=== PATIENT | female | born 1955 | race Caucasian/White ===

== ENCOUNTER 2016-10-11 09:39 | Emergency (ER) | payer OTHER ==
[~2016-10-11] VITALS: Ht 160 cm; Wt 60.0 kg
[2016-10-11] MEDS ORDERED: RAW CALCIUM (10:02)
[2016-10-11] MEDS ORDERED: MULTCAP11 PO (10:02)
[2016-10-11] MEDS ORDERED: [UNRECOGNIZED DRUG - OTHER] PO (10:02)
[2016-10-11] MEDS ORDERED: METOPROLOL 5 MG/5 ML VIAL As Ordered ONE (10:18)
[2016-10-11 10:21] LABS: MEAN CORPUSCULAR HEMOGLOBIN 32.8 pg (27.0-33.0); MEAN CORPUSCULAR HGB CONC 35.9 g/dl (32.0-36.5); MEAN CORPUSCULAR VOLUME 91.4 fl (80.0-96.0); RED CELL DISTRIBUTION WIDTH 11.9 % (11.5-14.5); WHITE BLOOD COUNT 6.2 K/mm3 (4.0-10.0)
[2016-10-11] MEDS: METOPROLOL 5 MG/5 ML VIAL IV SCH ×3 (10:26→10:40)
[2016-10-11] MEDS ORDERED: ASPIRIN 81 MG CHEW TABLET PO ONE (10:30)
[2016-10-11 10:40] VITALS: BP 159/95
[2016-10-11 10:57] LABS: ALBUMIN 4.3 GM/DL (3.2-5.2); ALBUMIN/GLOBULIN RATIO 1.48 (1.00-1.93); ALKALINE PHOSPHATASE 83 U/L (45-117); ALT/SGPT 31 U/L (12-78); ANION GAP 11 MEQ/L (8-16); AST/SGOT 23 U/L (15-37); BILIRUBIN,DIRECT 0.2 MG/DL (0.0-0.2); BILIRUBIN,TOTAL 0.8 MG/DL (0.2-1.0); BLOOD UREA NITROGEN 16 MG/DL (7-18); CALCIUM LEVEL 9.5 MG/DL (8.8-10.2); CARBON DIOXIDE LEVEL 23 MEQ/L (21-32); CHLORIDE LEVEL 108 MEQ/L (98-107); CREATININE FOR GFR 1.04 MG/DL (0.55-1.02); GLOMERULAR FILTRATION RATE 57.2 (>45); GLUCOSE, FASTING 177 MG/DL (80-110); POTASSIUM SERUM 3.5 MEQ/L (3.5-5.1); SODIUM LEVEL 142 MEQ/L (136-145); TOTAL PROTEIN 7.2 GM/DL (6.4-8.2)
[2016-10-11] MEDS ORDERED: LORazepam 1 MG TAB PO STA (11:02)
[2016-10-11] MEDS ORDERED: METOPROLOL TART 25 MG TABLET PO ONE (11:15)
--- NOTE | 2016-10-11 11:44 | REP ---
Clinical: Chest pain . Comparison: 10/11/2016 . Findings: The mediastinum and cardiac silhouette are stable and within normal limits for portable technique. The lung oliver are clear without acute consolidation, effusion, or pneumothorax. Skeletal structures are intact. Impression: No acute cardiopulmonary process appreciated. Signed by Tonio Ambrose MD 10/11/2016 11:35 A
[2016-10-11] MEDS ORDERED: DIGOXIN INJ 0.5 MG/2 ML AMP (J1160) IV STA (12:53)
[2016-10-11] MEDS ORDERED: RIVAROXABAN 20 MG TAB (XARELTO) PO ONE (13:00)
[2016-10-11] MEDS ORDERED: METOPROLOL TART 50 MG TAB PO ONE (13:00)
[2016-10-11 13:28] LABS: INR 0.95
--- NOTE | 2016-10-11 13:49 | ECGEPIP ---
Stationary ECG Study [facility] - ED Test Date: 2016-10-11 Pat Name: MERCY RIVERA Department: Room: - Gender: F Database Specialist: jessica : 1955 Requested By: HANNAH BALBUENA Order Number: [id number] Reading MD: Sadaf Orellana Measurements Intervals [place] Rate: 145 P: TX: 0 QRS: 46 QRSD: 94 T: 9 QT: 289 QTc: 450 Interpretive Statements ATRIAL FIBRILLATION WITH RAPID VENTRICULAR RESPONSE ABNORMAL RHYTHM ECG NSTTW ABNORMALITY Electronically Signed On 10-11-2016 13:49:04 EDT by Sadaf Orellana
--- NOTE | 2016-10-11 13:49 | ECGEPIP ---
Stationary ECG Study [facility] - ED Test Date: 2016-10-11 Pat Name: MERCY RIVERA Department: Room: - Gender: F Manager Sql: johnnie : 1955 Requested By: Sadaf Orellana Order Number: [id number] Reading MD: Sadaf Orellana Measurements Intervals [place] Rate: 158 P: NE: 0 QRS: 57 QRSD: 138 T: 50 QT: 335 QTc: 544 Interpretive Statements ATRIAL FLUTTER WITH RAPID VENTRICULAR RESPONSE INTRAVENTRICULAR CONDUCTION DELAY NO PRIOR FOR COMPARISON Electronically Signed On 10-11-2016 13:48:46 EDT by Sadaf Orellana
--- NOTE | 2016-10-11 13:52 | ECGEPIP ---
Stationary ECG Study [facility] - ED Test Date: 2016-10-11 Pat Name: MERCY RIVERA Department: Room: - Gender: F Cost Recorder: jessica : 1955 Requested By: HANNAH BALBUENA Order Number: [id number] Reading MD: Sadaf Orellana Measurements Intervals [place] Rate: 58 P: 45 GA: 148 QRS: 39 QRSD: 94 T: 22 QT: 408 QTc: 404 Interpretive Statements SINUS BRADYCARDIA PRIOR 10:49 ATRIAL FIBRILLATION Electronically Signed On 10-11-2016 13:51:09 EDT by Sadaf Orellana
[2016-10-11 15:07] VITALS: BP 113/66
[2016-10-11] MEDS ORDERED: ATEN25TA PO (15:24)
[2016-10-11] MEDS ORDERED: LORA0.5T11 PO ×2 (15:24→15:29)
[2016-10-11] MEDS ORDERED: XARE20TA PO (15:24)
[2016-10-11] MEDS ORDERED: DIGO0.12 PO (15:24)
[2016-10-16 00:06] LABS: Lyme Disease IgG Ab 18 kDa Ban Absent (.); Lyme Disease IgG Ab 23 kDa Ban Absent (.); Lyme Disease IgG Ab 28 kDa Ban Absent (.); Lyme Disease IgG Ab 30 kDa Ban Absent (.); Lyme Disease IgG Ab 39 kDa Ban Absent (.); Lyme Disease IgG Ab 41 kDa Ban Present (.); Lyme Disease IgG Ab 45 kDa Ban Present (.); Lyme Disease IgG Ab 58 kDa Ban Absent (.); Lyme Disease IgG Ab 66 kDa Ban Absent (.); Lyme Disease IgG Ab 93 kDa Ban Absent (.); Lyme Disease IgG West Blot Int Negative (.); Lyme Disease IgG/IgM Antibodie 1.64 ISR (0.00-0.90); Lyme Disease IgM Ab 23 kDa Ban Present (.); Lyme Disease IgM Ab 39 kDa Ban Present (.); Lyme Disease IgM Ab 41 kDa Ban Present (.); Lyme Disease IgM Ab Quantitati 7.89 index (0.00-0.79); Lyme Disease IgM West Blot Int Positive (.)
== END 2016-10-11 15:43 | disposition home or self-care (01) ==
LOC: M ED 10:41
DX: I48.92 Unspecified atrial flutter (principal); F41.9 Anxiety disorder, unspecified; Z87.891 Personal history of nicotine dependence; Z82.41 Family history of sudden cardiac death; Z88.8 Allergy status to other drugs, medicaments and biological substances; Z88.2 Allergy status to sulfonamides
CPT/HCPCS: 36415; 71010; 80048; 80076; 82550; 82553; 84443; 85027; 85610; 85730; 86617; 93005; 93041; 94760; 96374; 96375; 99285; G0480; J1160

== ENCOUNTER → 2016-12-12 | Outpatient (CLI) | payer OTHER ==
[~2016-12-12] MED LIST: ATEN25TA PO; DIGO0.12 PO; LORA0.5T11 PO; MULTCAP11 PO; RAW CALCIUM; XARE20TA PO; [UNRECOGNIZED DRUG - OTHER] PO
[2016-12-12 13:56] LABS: THYROID PEROXIDASE ANTIBODY 509.3 U/ML (<60.0)
[2016-12-12 13:57] LABS: FREE T4 1.24 NG/DL (0.76-1.46); VITAMIN B12 LEVEL 961 PG/ML (247-911)
[2016-12-14 11:32] LABS: PRETREATED FOLATE FOR RBCFOL 11.5 NG/ML
[2016-12-19 14:14] LABS: GLUTATHIONE QT 302 ug/mL (176-323); Lyme Disease IgG Ab 18 kDa Ban Absent (.); Lyme Disease IgG Ab 23 kDa Ban Absent (.); Lyme Disease IgG Ab 28 kDa Ban Absent (.); Lyme Disease IgG Ab 30 kDa Ban Absent (.); Lyme Disease IgG Ab 39 kDa Ban Absent (.); Lyme Disease IgG Ab 41 kDa Ban Present (.); Lyme Disease IgG Ab 45 kDa Ban Present (.); Lyme Disease IgG Ab 58 kDa Ban Absent (.); Lyme Disease IgG Ab 66 kDa Ban Absent (.); Lyme Disease IgG Ab 93 kDa Ban Present (.); Lyme Disease IgG West Blot Int Negative (.); Lyme Disease IgG/IgM Antibodie 1.45 ISR (0.00-0.90); Lyme Disease IgM Ab 23 kDa Ban Present (.); Lyme Disease IgM Ab 39 kDa Ban Absent (.); Lyme Disease IgM Ab 41 kDa Ban Present (.); Lyme Disease IgM Ab Quantitati 2.96 index (0.00-0.79); Lyme Disease IgM West Blot Int Positive (.)
== END ==
LOC: M WUC 10:26
PROVIDERS: ATTEND Nurse Practitioner Pediatrics
DX: F41.1 Generalized anxiety disorder (principal); F41.0 Panic disorder [episodic paroxysmal anxiety]; A69.20 Lyme disease, unspecified

== ENCOUNTER → 2017-02-26 | Outpatient (CLI) | payer OTHER ==
[2017-03-02 14:10] LABS: Lyme Disease IgG Ab 18 kDa Ban Absent (.); Lyme Disease IgG Ab 23 kDa Ban Absent (.); Lyme Disease IgG Ab 28 kDa Ban Absent (.); Lyme Disease IgG Ab 30 kDa Ban Absent (.); Lyme Disease IgG Ab 39 kDa Ban Absent (.); Lyme Disease IgG Ab 41 kDa Ban Present (.); Lyme Disease IgG Ab 45 kDa Ban Absent (.); Lyme Disease IgG Ab 58 kDa Ban Absent (.); Lyme Disease IgG Ab 66 kDa Ban Absent (.); Lyme Disease IgG Ab 93 kDa Ban Absent (.); Lyme Disease IgG West Blot Int Negative (.); Lyme Disease IgG/IgM Antibodie 1.13 ISR (0.00-0.90); Lyme Disease IgM Ab 23 kDa Ban Absent (.); Lyme Disease IgM Ab 39 kDa Ban Absent (.); Lyme Disease IgM Ab 41 kDa Ban Present (.); Lyme Disease IgM Ab Quantitati 2.09 index (0.00-0.79); Lyme Disease IgM West Blot Int Negative (.)
== END ==
LOC: M WUC 13:34
PROVIDERS: ATTEND Nurse Practitioner Pediatrics
DX: F41.1 Generalized anxiety disorder (principal); F41.0 Panic disorder [episodic paroxysmal anxiety]; A69.20 Lyme disease, unspecified

== ENCOUNTER → 2017-04-22 | Outpatient (CLI) | payer OTHER ==
[2017-04-22 13:13] LABS: FREE T3 2.9 PG/ML (2.2-4.0); FREE T4 0.95 NG/DL (0.76-1.46)
[2017-04-22 14:19] LABS: THYROGLOBULIN ANTIBODY < 15.0 U/ML (<60.0); THYROID PEROXIDASE ANTIBODY 338.1 U/ML (<60.0); TOTAL 25(OH) VITAMIN D 36.9 NG/ML (30.0-100.0)
[2017-04-24 08:07] LABS: Lyme Disease IgG Ab 18 kDa Ban Absent (.); Lyme Disease IgG Ab 23 kDa Ban Absent (.); Lyme Disease IgG Ab 28 kDa Ban Absent (.); Lyme Disease IgG Ab 30 kDa Ban Absent (.); Lyme Disease IgG Ab 39 kDa Ban Absent (.); Lyme Disease IgG Ab 41 kDa Ban Present (.); Lyme Disease IgG Ab 45 kDa Ban Absent (.); Lyme Disease IgG Ab 58 kDa Ban Absent (.); Lyme Disease IgG Ab 66 kDa Ban Absent (.); Lyme Disease IgG Ab 93 kDa Ban Present (.); Lyme Disease IgG West Blot Int Negative (.); Lyme Disease IgG/IgM Antibodie <0.91 ISR (0.00-0.90); Lyme Disease IgM Ab 23 kDa Ban Absent (.); Lyme Disease IgM Ab 39 kDa Ban Absent (.); Lyme Disease IgM Ab 41 kDa Ban Present (.); Lyme Disease IgM Ab Quantitati 1.74 index (0.00-0.79); Lyme Disease IgM West Blot Int Negative (.)
== END ==
LOC: M WUC 09:55
DX: F41.1 Generalized anxiety disorder (principal); F41.0 Panic disorder [episodic paroxysmal anxiety]; A69.20 Lyme disease, unspecified
CPT/HCPCS: 84443

== ENCOUNTER → 2017-07-09 | Outpatient (CLI) | payer OTHER ==
[2017-07-09 19:44] LABS: FREE T4 0.92 NG/DL (0.76-1.46)
[2017-07-09 19:44] LABS: FREE T3 2.7 PG/ML (2.2-4.0)
[2017-07-10 09:21] LABS: THYROGLOBULIN ANTIBODY < 15.0 U/ML (<60.0); THYROID PEROXIDASE ANTIBODY 384.8 U/ML (<60.0)
[2017-07-15 14:11] LABS: T3 REVERSE 18.7 ng/dL (9.2-24.1)
[2017-07-15 14:11] LABS: GLUTATHIONE QT 266 ug/mL (176-323); Lyme Disease IgG Ab 18 kDa Ban Absent (.); Lyme Disease IgG Ab 23 kDa Ban Absent (.); Lyme Disease IgG Ab 28 kDa Ban Absent (.); Lyme Disease IgG Ab 30 kDa Ban Absent (.); Lyme Disease IgG Ab 39 kDa Ban Absent (.); Lyme Disease IgG Ab 41 kDa Ban Present (.); Lyme Disease IgG Ab 45 kDa Ban Present (.); Lyme Disease IgG Ab 58 kDa Ban Absent (.); Lyme Disease IgG Ab 66 kDa Ban Absent (.); Lyme Disease IgG Ab 93 kDa Ban Present (.); Lyme Disease IgG West Blot Int Negative (.); Lyme Disease IgG/IgM Antibodie <0.91 ISR (0.00-0.90); Lyme Disease IgM Ab 23 kDa Ban Absent (.); Lyme Disease IgM Ab 39 kDa Ban Absent (.); Lyme Disease IgM Ab 41 kDa Ban Absent (.); Lyme Disease IgM Ab Quantitati 1.59 index (0.00-0.79); Lyme Disease IgM West Blot Int Negative (.)
== END ==
LOC: M WUC 13:01
DX: F41.1 Generalized anxiety disorder (principal); F41.0 Panic disorder [episodic paroxysmal anxiety]; A69.20 Lyme disease, unspecified; E03.8 Other specified hypothyroidism
CPT/HCPCS: 86800

== ENCOUNTER → 2017-11-01 | Outpatient (CLI) | payer OTHER ==
[2017-11-01 13:23] LABS: BASO % 0.4 % (0.0-1.0); EOS # 0.1 10^3/uL (0.0-0.50); EOS % 0.9 % (0.0-3.0); HEMATOCRIT 40.7 % (36.0-47.0); IMMATURE GRANULOCYTE % 0.4 % (0-3.0); LYMPH # 1.8 10^3/uL (1.5-4.5); LYMPH % 32.8 % (24.0-44.0); MEAN CORPUSCULAR HEMOGLOBIN 30.8 pg (27.0-33.0); MEAN CORPUSCULAR HGB CONC 34.4 g/dl (32.0-36.5); MEAN CORPUSCULAR VOLUME 89.5 fl (80.0-96.0); MONO # 0.4 10^3/uL (0.0-0.8); MONO % 8.1 % (0.0-5.0); NEUTROPHILS # 3.1 10^3/uL (1.8-7.7); NEUTROPHILS % 57.4 % (36.0-66.0); PLATELET COUNT, AUTOMATED 262 10^3/uL (150-450); RED BLOOD COUNT 4.55 10^6/uL (4.00-5.40); RED CELL DISTRIBUTION WIDTH 12.5 % (11.5-14.5); WHITE BLOOD COUNT 5.4 10^3/uL (4.0-10.0)
[2017-11-01 14:00] LABS: ALBUMIN/GLOBULIN RATIO 1.54 (1.00-1.93); ALKALINE PHOSPHATASE 68 U/L (45-117); ALT/SGPT 24 U/L (12-78); ANION GAP 6 MEQ/L (8-16); AST/SGOT 18 U/L (7-37); BILIRUBIN,TOTAL 0.5 MG/DL (0.2-1.0); BLOOD UREA NITROGEN 17 MG/DL (7-18); CALCIUM LEVEL 9.2 MG/DL (8.8-10.2); CARBON DIOXIDE LEVEL 30 MEQ/L (21-32); CHLORIDE LEVEL 108 MEQ/L (98-107); CHOLESTEROL LEVEL 282 MG/DL (<200); CHOLESTEROL RISK RATIO 3.317 (<5); CREATININE FOR GFR 0.74 MG/DL (0.55-1.30); GLOMERULAR FILTRATION RATE > 60.0 (>45); GLUCOSE, FASTING 93 MG/DL (70-100); HDL CHOLESTEROL 85 MG/DL (>40); LDL CHOLESTEROL 189.4 MG/DL (<100); NON-HDL-C 197 MG/DL; POTASSIUM SERUM 4.5 MEQ/L (3.5-5.1); SODIUM LEVEL 144 MEQ/L (136-145); TOTAL PROTEIN 6.6 GM/DL (6.4-8.2); TRIGLYCERIDES LEVEL 38 MG/DL (<150)
== END ==
LOC: M WUC 09:42
DX: I48.0 Paroxysmal atrial fibrillation (principal)
CPT/HCPCS: 80053

== ENCOUNTER → 2017-11-01 | Outpatient (CLI) | payer OTHER ==
[2017-11-01 13:41] LABS: THYROID PEROXIDASE ANTIBODY > 1300.0 U/ML (<60.0)
[2017-11-01 13:41] LABS: THYROGLOBULIN ANTIBODY 36.8 U/ML (<60.0)
[2017-11-01 13:54] LABS: ERYTHROCYTE SEDIMENTATION RATE 4 mm/hr (0-30)
[2017-11-01 13:58] LABS: C REACTIVE PROTEIN QUANTITATIV < 0.30 MG/DL (0.00-0.30)
[2017-11-05 00:08] LABS: Lyme Disease IgG Ab 18 kDa Ban Absent (.); Lyme Disease IgG Ab 23 kDa Ban Absent (.); Lyme Disease IgG Ab 28 kDa Ban Absent (.); Lyme Disease IgG Ab 30 kDa Ban Absent (.); Lyme Disease IgG Ab 39 kDa Ban Absent (.); Lyme Disease IgG Ab 41 kDa Ban Present (.); Lyme Disease IgG Ab 45 kDa Ban Absent (.); Lyme Disease IgG Ab 58 kDa Ban Absent (.); Lyme Disease IgG Ab 66 kDa Ban Absent (.); Lyme Disease IgG Ab 93 kDa Ban Absent (.); Lyme Disease IgG West Blot Int Negative (.); Lyme Disease IgG/IgM Antibodie <0.91 ISR (0.00-0.90); Lyme Disease IgM Ab 23 kDa Ban Present (.); Lyme Disease IgM Ab 39 kDa Ban Absent (.); Lyme Disease IgM Ab 41 kDa Ban Present (.); Lyme Disease IgM Ab Quantitati 1.37 index (0.00-0.79); Lyme Disease IgM West Blot Int Positive (.)
== END ==
LOC: M WUC 09:46
DX: F41.1 Generalized anxiety disorder (principal); F41.0 Panic disorder [episodic paroxysmal anxiety]; E03.8 Other specified hypothyroidism; A69.20 Lyme disease, unspecified
CPT/HCPCS: 86800

== ENCOUNTER → 2017-11-12 | Outpatient (REF) | payer OTHER | LOC: M LAB REF 17:55 | DX: Z12.4 Encounter for screening for malignant neoplasm of cervix (principal); N95.2 Postmenopausal atrophic vaginitis | CPT/HCPCS: G0123 ==

== ENCOUNTER → 2017-11-20 | Outpatient (CLI) | payer OTHER ==
[2017-11-20 17:44] LABS: THYROID PEROXIDASE ANTIBODY > 1300.0 U/ML (<60.0)
== END ==
LOC: M WUC 15:08
DX: E03.8 Other specified hypothyroidism (principal)
CPT/HCPCS: 86376

== ENCOUNTER → 2018-02-18 | Outpatient (CLI) | payer OTHER ==
[2018-02-19 09:34] LABS: THYROID PEROXIDASE ANTIBODY > 1300.0 U/ML (<60.0)
== END ==
LOC: M WUC 09:37
DX: E03.8 Other specified hypothyroidism (principal)
CPT/HCPCS: 86376

== ENCOUNTER → 2018-04-17 | Outpatient (CLI) | payer OTHER ==
[2018-04-17 16:34] LABS: C REACTIVE PROTEIN QUANTITATIV < 0.30 MG/DL (0.00-0.30); FREE T3 2.6 PG/ML (2.2-4.0); FREE T4 1.08 NG/DL (0.76-1.46)
[2018-04-17 16:44] LABS: TOTAL 25(OH) VITAMIN D 35.2 NG/ML (30.0-100.0)
[2018-04-18 10:21] LABS: THYROGLOBULIN ANTIBODY < 15.0 U/ML (<60.0); THYROID PEROXIDASE ANTIBODY > 1300.0 U/ML (<60.0)
[2018-04-23 14:58] LABS: GLUTATHIONE QT 267 ug/mL (176-323); Lyme Disease IgG/IgM Antibodie <0.91 ISR (0.00-0.90); Lyme Disease IgM Ab Quantitati <0.80 index (0.00-0.79); MAGNESIUM RBC LEVEL 6.7 mg/dL (4.2-6.8); T3 REVERSE 22.7 ng/dL (9.2-24.1)
== END ==
LOC: M WUC 13:31
PROVIDERS: ATTEND Nurse Practitioner Pediatrics
DX: F41.1 Generalized anxiety disorder (principal); F41.0 Panic disorder [episodic paroxysmal anxiety]; R10.84 Generalized abdominal pain; E03.8 Other specified hypothyroidism; A69.20 Lyme disease, unspecified

== ENCOUNTER → 2018-05-06 | Outpatient (REF) | payer OTHER | LOC: M LAB REF 16:41 | PROVIDERS: ATTEND Plastic Surgery Surgery of the Hand | DX: D21.0 Benign neoplasm of connective and other soft tissue of head, face and neck (principal) ==

== ENCOUNTER → 2018-09-03 | Outpatient (CLI) | payer OTHER ==
[2018-09-03 17:37] LABS: C REACTIVE PROTEIN QUANTITATIV < 0.30 MG/DL (0.00-0.30); RHEUMATOID FACTOR QUANT < 10.0 IU/ML (<15.0)
[2018-09-03 17:39] LABS: THYROID PEROXIDASE ANTIBODY 622.3 U/ML (<60.0)
[2018-09-03 17:40] LABS: THYROGLOBULIN ANTIBODY < 15.0 U/ML (<60.0)
[2018-09-06 00:14] LABS: ANTI DOUBLE STRAND-DNA AB 1 IU/mL (0-9); ANTINUCLEAR ANTIBODIES DIRECT Positive (Negative); RNP ANTIBODIES <0.2 AI (0.0-0.9); SJOGREN'S ANTI SS-A <0.2 AI (0.0-0.9); SJOGREN'S ANTI SS-B <0.2 AI (0.0-0.9); SMITH ANTIBODIES <0.2 AI (0.0-0.9)
== END ==
LOC: M WUC 14:24
PROVIDERS: ATTEND Nurse Practitioner Pediatrics
DX: F41.1 Generalized anxiety disorder (principal); F41.0 Panic disorder [episodic paroxysmal anxiety]; R10.84 Generalized abdominal pain; E03.8 Other specified hypothyroidism; A69.20 Lyme disease, unspecified

== ENCOUNTER → 2018-12-05 | Outpatient (CLI) | payer OTHER ==
[~2018-12-05] MED LIST changes: -LORA0.5T11 PO; +LORA0.5T5 PO
[2018-12-05 12:04] LABS: BASO % 0.3 % (0.0-1.0); EOS % 0.3 % (0.0-3.0); HEMATOCRIT 43.8 % (36.0-47.0); HEMOGLOBIN 15.6 g/dl (12.0-15.5); LYMPH # 1.7 10^3/uL (1.5-4.5); LYMPH % 26.9 % (24.0-44.0); MEAN CORPUSCULAR HEMOGLOBIN 32.2 pg (27.0-33.0); MEAN CORPUSCULAR HGB CONC 35.6 g/dl (32.0-36.5); MEAN CORPUSCULAR VOLUME 90.5 fl (80.0-96.0); MONO # 0.5 10^3/uL (0.0-0.8); MONO % 7.3 % (0.0-5.0); NEUTROPHILS # 4.1 10^3/uL (1.8-7.7); NEUTROPHILS % 64.7 % (36.0-66.0); PLATELET COUNT, AUTOMATED 265 10^3/uL (150-450); RED BLOOD COUNT 4.84 10^6/uL (4.00-5.40); WHITE BLOOD COUNT 6.3 10^3/uL (4.0-10.0)
[2018-12-05 12:18] LABS: HEMATOCRIT 43.8 % (36.0-47.0)
[2018-12-05 12:19] LABS: HEMOGLOBIN A1c 5.7 %
[2018-12-05 12:24] LABS: ERYTHROCYTE SEDIMENTATION RATE 2 mm/hr (0-30)
[2018-12-05 12:43] LABS: ALBUMIN 4.1 GM/DL (3.2-5.2); ALT/SGPT 86 U/L (12-78); BILIRUBIN,TOTAL 0.9 MG/DL (0.2-1.0); BLOOD UREA NITROGEN 14 MG/DL (7-18); C REACTIVE PROTEIN QUANTITATIV < 0.30 MG/DL (0.00-0.30); CALCIUM LEVEL 9.2 MG/DL (8.8-10.2); CARBON DIOXIDE LEVEL 26 MEQ/L (21-32); CHLORIDE LEVEL 106 MEQ/L (98-107); CORTISOL BASELINE 18.4 UG/DL (4.3-22.4); CPK CREATINE PHOSPHOKINASE 57 U/L (26-192); FERRITIN 519 NG/ML (8-252); FREE T4 1.29 NG/DL (0.76-1.46); GLOMERULAR FILTRATION RATE > 60.0 (>45); GLUCOSE, FASTING 94 MG/DL (70-100); IMMUNOGLOBULIN G 682 MG/DL (681-1648); IRON (FE) 175 UG/DL (50-170); PERCENT SATURATION 57.8 % (13.2-45.0); PHOSPHORUS LEVEL 3.4 MG/DL (2.5-4.9); POTASSIUM SERUM 4.1 MEQ/L (3.5-5.1); SODIUM LEVEL 141 MEQ/L (136-145); THYROID PEROXIDASE ANTIBODY 463.9 U/ML (<60.0); TOTAL 25(OH) VITAMIN D 46.2 NG/ML (30.0-100.0); TOTAL IRON BINDING CAPACITY 303 UG/DL (250-450); TOTAL PROTEIN 6.7 GM/DL (6.4-8.2); TOTAL T3 94.7 NG/DL (60.0-181.0)
[2018-12-05 12:44] LABS: FOLATE 21.7 NG/ML (>5.4); VITAMIN B12 LEVEL 919 PG/ML (247-911)
[2018-12-11 14:07] LABS: ADRENOCORTICOTROPHIC HORMONE 18.2 pg/mL (7.2-63.3); BABESIOSIS LEVEL IGG <1:10 (Neg:<1:10); BABESIOSIS LEVEL IGM <1:10 (Neg:<1:10); BARTONELLA DNA PCR Negative (Negative); BRUCELLA ABORTUS ANTIBODY Negative (Negative); DEHYDROEPIANDROSTERONE SULFATE 20.7 ug/dL (29.4-220.5); EBV VIRAL CAPSID AG IgM <36.0 U/mL (0.0-35.9); G6PD2 4.87 x10E6/uL (3.77-5.28); G6PD3 233 (146-376); G6PD4 Note: (.); Lyme Disease IgG Ab 18 kDa Ban Absent (.); Lyme Disease IgG Ab 23 kDa Ban Absent (.); Lyme Disease IgG Ab 28 kDa Ban Absent (.); Lyme Disease IgG Ab 30 kDa Ban Absent (.); Lyme Disease IgG Ab 39 kDa Ban Absent (.); Lyme Disease IgG Ab 41 kDa Ban Present (.); Lyme Disease IgG Ab 45 kDa Ban Absent (.); Lyme Disease IgG Ab 58 kDa Ban Absent (.); Lyme Disease IgG Ab 66 kDa Ban Absent (.); Lyme Disease IgG Ab 93 kDa Ban Present (.); Lyme Disease IgG West Blot Int Negative (.); Lyme Disease IgG/IgM Antibodie <0.91 ISR (0.00-0.90); Lyme Disease IgM Ab 23 kDa Ban Absent (.); Lyme Disease IgM Ab 39 kDa Ban Absent (.); Lyme Disease IgM Ab 41 kDa Ban Present (.); Lyme Disease IgM Ab Quantitati <0.80 index (0.00-0.79); Lyme Disease IgM West Blot Int Negative (.); MAGNESIUM RBC LEVEL 6.6 mg/dL (4.2-6.8); MYCOPLASMA PNEUMONIAE IgG 219 U/mL (0-99); MYCOPLASMA PNEUMONIAE IgM <770 U/mL (0-769); RMSFIGG1 Negative (Negative); ROCKY MTN SPOTTED FEVER IgM 0.46 index (0.00-0.89); THRYOGLOBULIN ANTIBODIES (ATA) < 1.0 IU/mL (0.0-0.9); THYROGLOBULIN QUANTITATIVE 22.3 ng/mL (1.5-38.5); TOXOPLASMA IgG ABY <3.0 IU/mL (0.0-7.1); VITAMIN B6,PYRIDOXAL PHOSPHATE 21.1 ug/L (2.0-32.8); WEST NILE VIRUS ANTIBODY IgG Negative (Negative); WEST NILE VIRUS ANTIBODY IgM Negative (Negative)
== END ==
LOC: M WUC 09:59
PROVIDERS: ATTEND General Practice
DX: R68.89 Other general symptoms and signs (principal); D55.0 Anemia due to glucose-6-phosphate dehydrogenase [G6PD] deficiency; Z13.0 Encounter for screening for diseases of the blood and blood-forming organs and certain disorders involving the immune mechanism

== ENCOUNTER → 2018-12-06 | Outpatient (CLI) | payer OTHER ==
[~2018-12-06] MED LIST changes: +LORA0.5T11 PO; -LORA0.5T5 PO
[2018-12-17 00:06] LABS: SELENIUM LEVEL RBC 270 mcg/L (.); ZINC RBC 1019 ug/dL (878-1660)
== END ==
LOC: M LAB 10:57
PROVIDERS: ATTEND General Practice
DX: R68.89 Other general symptoms and signs (principal); E53.1 Pyridoxine deficiency; D50.8 Other iron deficiency anemias; Z13.0 Encounter for screening for diseases of the blood and blood-forming organs and certain disorders involving the immune mechanism

== ENCOUNTER → 2019-02-12 | Outpatient (CLI) | payer OTHER | LOC: M WUC 10:34 | PROVIDERS: ATTEND General Practice | DX: Z13.79 Encounter for other screening for genetic and chromosomal anomalies (principal) ==

== ENCOUNTER → 2019-04-14 | Outpatient (CLI) | payer OTHER ==
[2019-04-14 13:28] LABS: BASO % 0.3 % (0.0-1.0); EOS % 0.5 % (0.0-3.0); HEMATOCRIT 44.6 % (36.0-47.0); LYMPH # 1.8 10^3/uL (1.5-5.0); LYMPH % 27.7 % (24.0-44.0); MEAN CORPUSCULAR HEMOGLOBIN 31.4 pg (27.0-33.0); MEAN CORPUSCULAR HGB CONC 33.6 g/dl (32.0-36.5); MEAN CORPUSCULAR VOLUME 93.5 fl (80.0-96.0); MONO # 0.5 10^3/uL (0.0-0.8); MONO % 7.2 % (0.0-5.0); NEUTROPHILS # 4.2 10^3/uL (1.5-8.5); PLATELET COUNT, AUTOMATED 250 10^3/uL (150-450); RED BLOOD COUNT 4.77 10^6/uL (4.00-5.40); WHITE BLOOD COUNT 6.5 10^3/uL (4.0-10.0)
[2019-04-14 13:55] LABS: ALBUMIN 3.7 GM/DL (3.2-5.2); ALT/SGPT 83 U/L (12-78); BILIRUBIN,TOTAL 0.6 MG/DL (0.2-1.0); BLOOD UREA NITROGEN 18 MG/DL (7-18); CALCIUM LEVEL 9.2 MG/DL (8.8-10.2); CARBON DIOXIDE LEVEL 30 MEQ/L (21-32); CHLORIDE LEVEL 108 MEQ/L (98-107); CREATININE FOR GFR 0.84 MG/DL (0.55-1.30); FERRITIN 335 NG/ML (8-252); GLOMERULAR FILTRATION RATE > 60.0 (>45); GLUCOSE, FASTING 82 MG/DL (70-100); IRON (FE) 123 UG/DL (50-170); PERCENT SATURATION 45.1 % (13.2-45.0); POTASSIUM SERUM 4.4 MEQ/L (3.5-5.1); SODIUM LEVEL 143 MEQ/L (136-145); TOTAL IRON BINDING CAPACITY 273 UG/DL (250-450); TOTAL PROTEIN 6.5 GM/DL (6.4-8.2)
[2019-04-14 17:14] LABS: HEMOGLOBIN A1c 5.5 %
[2019-04-15 09:27] LABS: THYROID PEROXIDASE ANTIBODY 280.9 U/ML (<60.0)
== END ==
LOC: M WUC 10:14
PROVIDERS: ATTEND General Practice
DX: E03.9 Hypothyroidism, unspecified (principal); D50.8 Other iron deficiency anemias; Z13.0 Encounter for screening for diseases of the blood and blood-forming organs and certain disorders involving the immune mechanism; I10 Essential (primary) hypertension; R68.89 Other general symptoms and signs; E11.9 Type 2 diabetes mellitus without complications

== ENCOUNTER → 2019-05-14 | Outpatient (CLI) | payer MEDICARE, OTHER ==
[~2019-05-14] MED LIST changes: -LORA0.5T11 PO; +LORA0.5T5 PO
[2019-05-14 14:23] LABS: BASO % 0.4 % (0.0-1.0); EOS % 0.2 % (0.0-3.0); HEMATOCRIT 45.4 % (36.0-47.0); HEMOGLOBIN 15.4 g/dl (12.0-15.5); LYMPH # 1.5 10^3/uL (1.5-5.0); LYMPH % 26.9 % (24.0-44.0); MEAN CORPUSCULAR HEMOGLOBIN 31.8 pg (27.0-33.0); MEAN CORPUSCULAR HGB CONC 33.9 g/dl (32.0-36.5); MEAN CORPUSCULAR VOLUME 93.6 fl (80.0-96.0); MONO # 0.4 10^3/uL (0.0-0.8); MONO % 6.9 % (0.0-5.0); NEUTROPHILS # 3.7 10^3/uL (1.5-8.5); NEUTROPHILS % 64.9 % (36.0-66.0); PLATELET COUNT, AUTOMATED 249 10^3/uL (150-450); RED BLOOD COUNT 4.85 10^6/uL (4.00-5.40); WHITE BLOOD COUNT 5.7 10^3/uL (4.0-10.0)
[2019-05-14 14:41] LABS: ALBUMIN 4.1 GM/DL (3.2-5.2); ALT/SGPT 104 U/L (12-78); BILIRUBIN,TOTAL 0.9 MG/DL (0.2-1.0); BLOOD UREA NITROGEN 19 MG/DL (7-18); CALCIUM LEVEL 9.7 MG/DL (8.8-10.2); CARBON DIOXIDE LEVEL 30 MEQ/L (21-32); CHLORIDE LEVEL 104 MEQ/L (98-107); CREATININE FOR GFR 0.84 MG/DL (0.55-1.30); GLOMERULAR FILTRATION RATE > 60.0 (>45); GLUCOSE, FASTING 57 MG/DL (70-100); POTASSIUM SERUM 4.4 MEQ/L (3.5-5.1); SODIUM LEVEL 140 MEQ/L (136-145); TOTAL PROTEIN 6.7 GM/DL (6.4-8.2)
== END ==
LOC: M WUC 10:32
DX: R68.89 Other general symptoms and signs (principal); I10 Essential (primary) hypertension

== ENCOUNTER → 2019-05-21 | Outpatient (CLI) | payer MEDICARE, OTHER ==
[2019-05-21 14:43] LABS: ALBUMIN 3.9 GM/DL (3.2-5.2); ALT/SGPT 93 U/L (12-78); BILIRUBIN,TOTAL 0.6 MG/DL (0.2-1.0); BLOOD UREA NITROGEN 19 MG/DL (7-18); CARBON DIOXIDE LEVEL 30 MEQ/L (21-32); CHLORIDE LEVEL 105 MEQ/L (98-107); CREATININE FOR GFR 0.87 MG/DL (0.55-1.30); GLOMERULAR FILTRATION RATE > 60.0 (>45); GLUCOSE, FASTING 83 MG/DL (70-100); POTASSIUM SERUM 4.6 MEQ/L (3.5-5.1); SODIUM LEVEL 141 MEQ/L (136-145); TOTAL PROTEIN 6.2 GM/DL (6.4-8.2)
== END ==
LOC: M WUC 09:06
PROVIDERS: ATTEND Physician Assistant
DX: I10 Essential (primary) hypertension (principal)

== ENCOUNTER → 2019-06-02 | Outpatient (CLI) | payer MEDICARE, OTHER ==
[2019-06-02 12:56] LABS: BLOOD UREA NITROGEN 17 MG/DL (7-18); CREATININE FOR GFR 0.79 MG/DL (0.55-1.30); GLOMERULAR FILTRATION RATE > 60.0 (>45); GLUCOSE, FASTING 80 MG/DL (70-100)
[2019-06-02 12:57] LABS: ALBUMIN 3.8 GM/DL (3.2-5.2); ALT/SGPT 105 U/L (12-78); BILIRUBIN,TOTAL 0.7 MG/DL (0.2-1.0); CALCIUM LEVEL 9.1 MG/DL (8.8-10.2); CARBON DIOXIDE LEVEL 30 MEQ/L (21-32); CHLORIDE LEVEL 108 MEQ/L (98-107); POTASSIUM SERUM 4.4 MEQ/L (3.5-5.1); SODIUM LEVEL 141 MEQ/L (136-145); TOTAL PROTEIN 6.2 GM/DL (6.4-8.2)
== END ==
LOC: M WUC 09:27
PROVIDERS: ATTEND Physician Assistant
DX: I10 Essential (primary) hypertension (principal)

== ENCOUNTER → 2019-07-02 | Outpatient (CLI) | payer MEDICARE, OTHER ==
[2019-07-02 16:38] LABS: ALBUMIN 3.8 GM/DL (3.2-5.2); ALT/SGPT 90 U/L (12-78); BASO % 0.5 % (0.0-1.0); BILIRUBIN,TOTAL 0.8 MG/DL (0.2-1.0); BLOOD UREA NITROGEN 19 MG/DL (7-18); CALCIUM LEVEL 9.3 MG/DL (8.8-10.2); CARBON DIOXIDE LEVEL 32 MEQ/L (21-32); CHLORIDE LEVEL 107 MEQ/L (98-107); CREATININE FOR GFR 0.86 MG/DL (0.55-1.30); EOS # 0.1 10^3/uL (0.0-0.5); EOS % 0.8 % (0.0-3.0); GLOMERULAR FILTRATION RATE > 60.0 (>45); GLUCOSE, FASTING 79 MG/DL (70-100); HEMATOCRIT 46.3 % (36.0-47.0); HEMOGLOBIN 15.5 g/dl (12.0-15.5); LYMPH # 2.1 10^3/uL (1.5-5.0); LYMPH % 33.3 % (24.0-44.0); MEAN CORPUSCULAR HEMOGLOBIN 31.5 pg (27.0-33.0); MEAN CORPUSCULAR HGB CONC 33.5 g/dl (32.0-36.5); MEAN CORPUSCULAR VOLUME 94.1 fl (80.0-96.0); MONO # 0.5 10^3/uL (0.0-0.8); NEUTROPHILS # 3.7 10^3/uL (1.5-8.5); NEUTROPHILS % 57.1 % (36.0-66.0); PLATELET COUNT, AUTOMATED 297 10^3/uL (150-450); POTASSIUM SERUM 4.2 MEQ/L (3.5-5.1); RED BLOOD COUNT 4.92 10^6/uL (4.00-5.40); SODIUM LEVEL 142 MEQ/L (136-145); TOTAL PROTEIN 6.8 GM/DL (6.4-8.2); WHITE BLOOD COUNT 6.4 10^3/uL (4.0-10.0)
== END ==
LOC: M WUC 11:38
PROVIDERS: ATTEND Physician Assistant
DX: R68.89 Other general symptoms and signs (principal); I10 Essential (primary) hypertension

== ENCOUNTER → 2019-07-29 | Outpatient (CLI) | payer MEDICARE, OTHER ==
[2019-07-29 16:07] LABS: BASO % 0.5 % (0.0-1.0); EOS # 0.1 10^3/uL (0.0-0.5); EOS % 0.8 % (0.0-3.0); HEMATOCRIT 44.8 % (36.0-47.0); HEMOGLOBIN 15.6 g/dl (12.0-15.5); LYMPH % 22.7 % (24.0-44.0); MEAN CORPUSCULAR HEMOGLOBIN 32.4 pg (27.0-33.0); MEAN CORPUSCULAR HGB CONC 34.8 g/dl (32.0-36.5); MEAN CORPUSCULAR VOLUME 93.1 fl (80.0-96.0); MONO # 0.8 10^3/uL (0.0-0.8); MONO % 8.6 % (0.0-5.0); NEUTROPHILS # 5.9 10^3/uL (1.5-8.5); NEUTROPHILS % 67.1 % (36.0-66.0); PLATELET COUNT, AUTOMATED 260 10^3/uL (150-450); RED BLOOD COUNT 4.81 10^6/uL (4.00-5.40); WHITE BLOOD COUNT 8.8 10^3/uL (4.0-10.0)
[2019-07-29 16:13] LABS: ALBUMIN 3.8 GM/DL (3.2-5.2); ALT/SGPT 77 U/L (12-78); BILIRUBIN,TOTAL 0.6 MG/DL (0.2-1.0); BLOOD UREA NITROGEN 16 MG/DL (7-18); CARBON DIOXIDE LEVEL 26 MEQ/L (21-32); CHLORIDE LEVEL 107 MEQ/L (98-107); CREATININE FOR GFR 0.76 MG/DL (0.55-1.30); FERRITIN 317 NG/ML (8-252); GLOMERULAR FILTRATION RATE > 60.0 (>45); GLUCOSE, FASTING 94 MG/DL (70-100); IRON (FE) 129 UG/DL (50-170); PERCENT SATURATION 40.3 % (13.2-45.0); POTASSIUM SERUM 4.8 MEQ/L (3.5-5.1); SODIUM LEVEL 140 MEQ/L (136-145); TOTAL IRON BINDING CAPACITY 320 UG/DL (250-450); TOTAL PROTEIN 6.6 GM/DL (6.4-8.2)
== END ==
LOC: M WUC 12:11
PROVIDERS: ATTEND General Practice
DX: D50.8 Other iron deficiency anemias (principal); R79.89 Other specified abnormal findings of blood chemistry

== ENCOUNTER → 2019-08-30 | Outpatient (CLI) | payer MEDICARE, OTHER ==
[2019-08-30 17:57] LABS: ALBUMIN 3.7 GM/DL (3.2-5.2); ALT/SGPT 73 U/L (12-78); BILIRUBIN,TOTAL 0.9 MG/DL (0.2-1.0); BLOOD UREA NITROGEN 16 MG/DL (7-18); CALCIUM LEVEL 8.6 MG/DL (8.8-10.2); CARBON DIOXIDE LEVEL 27 MEQ/L (21-32); CHLORIDE LEVEL 108 MEQ/L (98-107); FERRITIN 326 NG/ML (8-252); GLOMERULAR FILTRATION RATE > 60.0 (>45); GLUCOSE, FASTING 79 MG/DL (70-100); IRON (FE) 153 UG/DL (50-170); PERCENT SATURATION 52.4 % (13.2-45.0); POTASSIUM SERUM 4.5 MEQ/L (3.5-5.1); SODIUM LEVEL 144 MEQ/L (136-145); TOTAL IRON BINDING CAPACITY 292 UG/DL (250-450); TOTAL PROTEIN 6.2 GM/DL (6.4-8.2)
[2019-09-02 07:19] LABS: THYROID PEROXIDASE ANTIBODY 291.2 U/ML (<60.0)
== END ==
LOC: M WUC 08:27
PROVIDERS: ATTEND General Practice
DX: Z13.0 Encounter for screening for diseases of the blood and blood-forming organs and certain disorders involving the immune mechanism (principal); I10 Essential (primary) hypertension; D50.8 Other iron deficiency anemias; E03.9 Hypothyroidism, unspecified

== ENCOUNTER → 2019-10-18 | Outpatient (CLI) | payer MEDICARE, OTHER ==
[2019-10-18 13:31] LABS: BASO % 0.4 % (0.0-1.0); EOS % 0.7 % (0.0-3.0); HEMOGLOBIN 14.6 g/dl (12.0-15.5); LYMPH % 36.1 % (24.0-44.0); MEAN CORPUSCULAR HEMOGLOBIN 30.9 pg (27.0-33.0); MEAN CORPUSCULAR HGB CONC 33.2 g/dl (32.0-36.5); MEAN CORPUSCULAR VOLUME 93.2 fl (80.0-96.0); MONO # 0.5 10^3/uL (0.0-0.8); MONO % 9.5 % (0.0-5.0); NEUTROPHILS # 2.9 10^3/uL (1.5-8.5); NEUTROPHILS % 53.1 % (36.0-66.0); PLATELET COUNT, AUTOMATED 245 10^3/uL (150-450); RED BLOOD COUNT 4.72 10^6/uL (4.00-5.40); WHITE BLOOD COUNT 5.5 10^3/uL (4.0-10.0)
[2019-10-18 13:43] LABS: ALBUMIN 3.7 GM/DL (3.2-5.2); ALT/SGPT 66 U/L (12-78); BILIRUBIN,TOTAL 0.9 MG/DL (0.2-1.0); BLOOD UREA NITROGEN 14 MG/DL (7-18); CALCIUM LEVEL 8.9 MG/DL (8.8-10.2); CARBON DIOXIDE LEVEL 27 MEQ/L (21-32); CHLORIDE LEVEL 109 MEQ/L (98-107); CREATININE FOR GFR 0.76 MG/DL (0.55-1.30); FERRITIN 295 NG/ML (8-252); GLOMERULAR FILTRATION RATE > 60.0 (>45); GLUCOSE, FASTING 90 MG/DL (70-100); IRON (FE) 139 UG/DL (50-170); PERCENT SATURATION 45.4 % (13.2-45.0); POTASSIUM SERUM 4.4 MEQ/L (3.5-5.1); SODIUM LEVEL 143 MEQ/L (136-145); TOTAL IRON BINDING CAPACITY 306 UG/DL (250-450); TOTAL PROTEIN 6.4 GM/DL (6.4-8.2)
[2019-10-19 12:42] LABS: THYROID PEROXIDASE ANTIBODY 388.5 U/ML (<60.0)
== END ==
LOC: M WUC 09:16
PROVIDERS: ATTEND Physician Assistant
DX: R68.89 Other general symptoms and signs (principal); I10 Essential (primary) hypertension; D50.8 Other iron deficiency anemias; R79.89 Other specified abnormal findings of blood chemistry; E03.9 Hypothyroidism, unspecified; Z13.0 Encounter for screening for diseases of the blood and blood-forming organs and certain disorders involving the immune mechanism

== ENCOUNTER → 2019-11-29 | Outpatient (CLI) | payer MEDICARE, OTHER ==
[2019-11-29 15:27] LABS: BASO % 0.4 % (0.0-1.0); EOS % 0.8 % (0.0-3.0); HEMOGLOBIN 14.7 g/dl (12.0-15.5); LYMPH % 38.9 % (24.0-44.0); MEAN CORPUSCULAR HEMOGLOBIN 31.7 pg (27.0-33.0); MEAN CORPUSCULAR HGB CONC 34.2 g/dl (32.0-36.5); MEAN CORPUSCULAR VOLUME 92.7 fl (80.0-96.0); MONO # 0.5 10^3/uL (0.0-0.8); MONO % 9.7 % (0.0-5.0); NEUTROPHILS # 2.6 10^3/uL (1.5-8.5); PLATELET COUNT, AUTOMATED 245 10^3/uL (150-450); RED BLOOD COUNT 4.64 10^6/uL (4.00-5.40); WHITE BLOOD COUNT 5.2 10^3/uL (4.0-10.0)
[2019-11-29 15:37] LABS: ALBUMIN 3.8 GM/DL (3.2-5.2); ALT/SGPT 50 U/L (12-78); BILIRUBIN,TOTAL 0.7 MG/DL (0.2-1.0); BLOOD UREA NITROGEN 16 MG/DL (7-18); CALCIUM LEVEL 8.9 MG/DL (8.8-10.2); CARBON DIOXIDE LEVEL 29 MEQ/L (21-32); CHLORIDE LEVEL 107 MEQ/L (98-107); CREATININE FOR GFR 0.82 MG/DL (0.55-1.30); FERRITIN 381 NG/ML (8-252); GLOMERULAR FILTRATION RATE > 60.0 (>45); GLUCOSE, FASTING 83 MG/DL (70-100); IRON (FE) 163 UG/DL (50-170); PERCENT SATURATION 56.8 % (13.2-45.0); POTASSIUM SERUM 4.4 MEQ/L (3.5-5.1); SODIUM LEVEL 141 MEQ/L (136-145); TOTAL IRON BINDING CAPACITY 287 UG/DL (250-450); TOTAL PROTEIN 6.4 GM/DL (6.4-8.2)
[2019-11-30 15:50] LABS: THYROID PEROXIDASE ANTIBODY 873.4 U/ML (<60.0)
== END ==
LOC: M WUC 09:17
PROVIDERS: ATTEND General Practice
DX: R68.89 Other general symptoms and signs (principal); I10 Essential (primary) hypertension; D50.8 Other iron deficiency anemias; Z13.0 Encounter for screening for diseases of the blood and blood-forming organs and certain disorders involving the immune mechanism; R79.89 Other specified abnormal findings of blood chemistry; E03.9 Hypothyroidism, unspecified

== ENCOUNTER → 2020-01-31 | Outpatient (CLI) | payer MEDICARE, OTHER ==
[2020-01-31 17:51] LABS: BASO % 0.5 % (0.0-1.0); EOS # 0.1 10^3/uL (0.0-0.5); EOS % 1.3 % (0.0-3.0); HEMATOCRIT 44.1 % (36.0-47.0); HEMOGLOBIN 14.9 g/dl (12.0-15.5); LYMPH # 1.6 10^3/uL (1.5-5.0); LYMPH % 28.7 % (24.0-44.0); MEAN CORPUSCULAR HEMOGLOBIN 31.8 pg (27.0-33.0); MEAN CORPUSCULAR HGB CONC 33.8 g/dl (32.0-36.5); MONO # 0.5 10^3/uL (0.0-0.8); MONO % 9.5 % (0.0-5.0); NEUTROPHILS # 3.3 10^3/uL (1.5-8.5); NEUTROPHILS % 59.8 % (36.0-66.0); PLATELET COUNT, AUTOMATED 250 10^3/uL (150-450); RED BLOOD COUNT 4.69 10^6/uL (4.00-5.40); WHITE BLOOD COUNT 5.6 10^3/uL (4.0-10.0)
[2020-01-31 18:00] LABS: ALBUMIN 3.9 GM/DL (3.2-5.2); ALT/SGPT 49 U/L (12-78); BILIRUBIN,TOTAL 0.8 MG/DL (0.2-1.0); BLOOD UREA NITROGEN 14 MG/DL (7-18); CALCIUM LEVEL 8.6 MG/DL (8.8-10.2); CARBON DIOXIDE LEVEL 29 MEQ/L (21-32); CHLORIDE LEVEL 106 MEQ/L (98-107); FERRITIN 366 NG/ML (8-252); GLOMERULAR FILTRATION RATE > 60.0 (>45); GLUCOSE, FASTING 85 MG/DL (70-100); IRON (FE) 134 UG/DL (50-170); PERCENT SATURATION 44.8 % (13.2-45.0); POTASSIUM SERUM 4.4 MEQ/L (3.5-5.1); SODIUM LEVEL 140 MEQ/L (136-145); TOTAL IRON BINDING CAPACITY 299 UG/DL (250-450); TOTAL PROTEIN 6.7 GM/DL (6.4-8.2)
[2020-02-01 11:31] LABS: TOTAL 25(OH) VITAMIN D 39.4 NG/ML (30.0-100.0)
[2020-02-01 12:23] LABS: THYROID PEROXIDASE ANTIBODY 1194.4 U/ML (<60.0)
[2020-02-03 14:08] LABS: Lyme Disease IgG Ab 18 kDa Ban Absent (.); Lyme Disease IgG Ab 23 kDa Ban Absent (.); Lyme Disease IgG Ab 28 kDa Ban Absent (.); Lyme Disease IgG Ab 30 kDa Ban Absent (.); Lyme Disease IgG Ab 39 kDa Ban Absent (.); Lyme Disease IgG Ab 41 kDa Ban Present (.); Lyme Disease IgG Ab 45 kDa Ban Absent (.); Lyme Disease IgG Ab 58 kDa Ban Absent (.); Lyme Disease IgG Ab 66 kDa Ban Absent (.); Lyme Disease IgG Ab 93 kDa Ban Present (.); Lyme Disease IgG West Blot Int Negative (.); Lyme Disease IgG/IgM Antibodie <0.91 ISR (0.00-0.90); Lyme Disease IgM Ab 23 kDa Ban Absent (.); Lyme Disease IgM Ab 39 kDa Ban Absent (.); Lyme Disease IgM Ab 41 kDa Ban Present (.); Lyme Disease IgM Ab Quantitati 0.81 index (0.00-0.79); Lyme Disease IgM West Blot Int Negative (.)
== END ==
LOC: M WUC 09:08
PROVIDERS: ATTEND Physician Assistant
DX: E03.9 Hypothyroidism, unspecified (principal); I10 Essential (primary) hypertension; D50.8 Other iron deficiency anemias; R68.89 Other general symptoms and signs; E55.9 Vitamin D deficiency, unspecified; Z79.899 Other long term (current) drug therapy

== ENCOUNTER → 2020-03-27 | Outpatient (CLI) | payer MEDICARE, OTHER ==
[~2020-03-27] MED LIST changes: +CARD120C3 PO; +DIGO0.253 PO; +EQL50TAB2 PO; +L-GL500T5 PO; +MAGN400T3 PO; +VITA-259 PO; +VITA250T4 PO; +XARE15TA PO
[2020-03-27 15:21] LABS: BASO % 0.4 % (0.0-1.0); EOS # 0.1 10^3/uL (0.0-0.5); EOS % 0.9 % (0.0-3.0); HEMATOCRIT 49.5 % (36.0-47.0); LYMPH # 1.5 10^3/uL (1.5-5.0); LYMPH % 27.7 % (24.0-44.0); MEAN CORPUSCULAR HEMOGLOBIN 32.2 pg (27.0-33.0); MEAN CORPUSCULAR HGB CONC 32.3 g/dl (32.0-36.5); MEAN CORPUSCULAR VOLUME 99.6 fl (80.0-96.0); MONO # 0.6 10^3/uL (0.0-0.8); MONO % 10.3 % (0.0-5.0); NEUTROPHILS # 3.3 10^3/uL (1.5-8.5); NEUTROPHILS % 60.5 % (36.0-66.0); PLATELET COUNT, AUTOMATED 267 10^3/uL (150-450); RED BLOOD COUNT 4.97 10^6/uL (4.00-5.40); WHITE BLOOD COUNT 5.5 10^3/uL (4.0-10.0)
[2020-03-27 15:45] LABS: ALBUMIN 3.4 GM/DL (3.2-5.2); ALT/SGPT 93 U/L (12-78); BILIRUBIN,TOTAL 0.9 MG/DL (0.2-1.0); BLOOD UREA NITROGEN 18 MG/DL (7-18); CALCIUM LEVEL 9.2 MG/DL (8.8-10.2); CARBON DIOXIDE LEVEL 31 MEQ/L (21-32); CHLORIDE LEVEL 107 MEQ/L (98-107); FERRITIN 259 NG/ML (8-252); GLOMERULAR FILTRATION RATE > 60.0 (>45); GLUCOSE, FASTING 96 MG/DL (70-100); IRON (FE) 125 UG/DL (50-170); PERCENT SATURATION 40.5 % (13.2-45.0); POTASSIUM SERUM 4.3 MEQ/L (3.5-5.1); SODIUM LEVEL 142 MEQ/L (136-145); TOTAL IRON BINDING CAPACITY 309 UG/DL (250-450); TOTAL PROTEIN 5.8 GM/DL (6.4-8.2)
== END ==
LOC: M WUC 08:36
PROVIDERS: ATTEND General Practice
DX: D50.8 Other iron deficiency anemias (principal); R79.89 Other specified abnormal findings of blood chemistry; Z13.0 Encounter for screening for diseases of the blood and blood-forming organs and certain disorders involving the immune mechanism

== ENCOUNTER 2020-03-30 17:55 | Inpatient (IN) | payer MEDICARE, OTHER ==
[~2020-03-30] VITALS: Ht 160 cm; Wt 57.8 kg
[~2020-03-30 17:55] MED LIST changes: -CARD120C3 PO; -DIGO0.253 PO; -EQL50TAB2 PO; -L-GL500T5 PO; -MAGN400T3 PO; -VITA-259 PO; -VITA250T4 PO; -XARE15TA PO
[2020-03-30] MEDS ORDERED: DIGOXIN INJ 0.5 MG/2 ML AMP (J1160) IV ONE ×2 (18:15→19:45)
[2020-03-30] MEDS ORDERED: METOPROLOL TART 25 MG TABLET PO ONE (18:15)
[2020-03-30] MEDS: METOPROLOL 5 MG/5 ML VIAL IV SCH ×3 (18:21→18:44)
--- NOTE | 2020-03-30 18:30 | REP ---
INDICATION: CHEST PAIN COMPARISON: 10/11/2016 TECHNIQUE: Portable AP view of the chest FINDINGS: Cardiomegaly cannot be excluded. Lung oliver demonstrate chronic interstitial changes. No focal consolidation, effusion, or pneumothorax. Skeletal structures are intact. IMPRESSION: Questionable cardiomegaly. No focal consolidation or effusion. <Electronically signed by Tonio Ambrose > 03/30/20 0038
[2020-03-30 18:35] LABS: BASO % 0.4 % (0.0-1.0); EOS % 0.1 % (0.0-3.0); HEMATOCRIT 48.1 % (36.0-47.0); HEMOGLOBIN 16.3 g/dl (12.0-15.5); LYMPH % 16.2 % (24.0-44.0); MEAN CORPUSCULAR HEMOGLOBIN 32.5 pg (27.0-33.0); MEAN CORPUSCULAR HGB CONC 33.9 g/dl (32.0-36.5); PLATELET COUNT, AUTOMATED 259 10^3/uL (150-450); RED BLOOD COUNT 5.01 10^6/uL (4.00-5.40); WHITE BLOOD COUNT 10.1 10^3/uL (4.0-10.0)
[2020-03-30 18:36] LABS: LYMPH # 1.6 10^3/uL (1.5-5.0); MONO # 0.9 10^3/uL (0.0-0.8); NEUTROPHILS # 7.5 10^3/uL (1.5-8.5)
[2020-03-30 18:50] LABS: ETHYL ALCOHOL (ETHANOL) 0.003 % (0.000-0.010); MAGNESIUM LEVEL 2.3 MG/DL (1.8-2.4)
[2020-03-30 18:53] LABS: INR 1.09; PROTHROMBIN TIME 14.3 SECONDS (12.5-14.3)
[2020-03-30 19:01] LABS: ALBUMIN 3.6 GM/DL (3.2-5.2); ALT/SGPT 100 U/L (12-78); BILIRUBIN,DIRECT 0.2 MG/DL (0.0-0.2); BILIRUBIN,TOTAL 0.6 MG/DL (0.2-1.0); BLOOD UREA NITROGEN 22 MG/DL (7-18); CALCIUM LEVEL 8.7 MG/DL (8.8-10.2); CARBON DIOXIDE LEVEL 29 MEQ/L (21-32); CHLORIDE LEVEL 108 MEQ/L (98-107); CPK CREATINE PHOSPHOKINASE 82 U/L (26-192); CREATININE FOR GFR 0.84 MG/DL (0.55-1.30); GLOMERULAR FILTRATION RATE > 60.0 (>45); GLUCOSE, FASTING 80 MG/DL (70-100); MB/CK RELATIVE INDEX 3.66 (< OR =4); POTASSIUM SERUM 4.1 MEQ/L (3.5-5.1); SODIUM LEVEL 141 MEQ/L (136-145); TOTAL PROTEIN 6.1 GM/DL (6.4-8.2); TROPONIN I < 0.02 NG/ML (< 0.10)
[2020-03-30 19:31] LABS: DIGOXIN LEVEL 0.1 NG/ML (0.5-2.0)
[2020-03-30] MEDS ORDERED: RIVAROXABAN 20 MG TAB (XARELTO) PO SCH (21:00)
[2020-03-30] MEDS ORDERED: LABETALOL 100MG/20ML VIAL IV STA (21:48)
[2020-03-30] MEDS ORDERED: MAGN400T3 PO (21:55)
[2020-03-30] MEDS ORDERED: ATEN25TA PO (21:55)
[2020-03-30] MEDS ORDERED: VITA-259 PO (21:55)
[2020-03-30] MEDS ORDERED: XARE20TA PO (21:55)
[2020-03-30] MEDS ORDERED: L-GL500T5 PO (21:55)
[2020-03-30] MEDS ORDERED: EQL50TAB2 PO (21:55)
[2020-03-30] MEDS ORDERED: VITA250T4 PO (21:55)
--- NOTE | 2020-03-30 22:03 | HPEPDOC ---
[facility] Medical History & Physical Date of Admission Mar 30, 2020 Date of Service: Mar 30, 2020 Attending Physician: ROSSANA HERNÁNDEZ MD History and Physical CHIEF COMPLAINT: General malaise HISTORY OF PRESENT ILLNESS: is a very pleasant 64yo female with notable PMHx of Atrial flutter in October 2016 (has remained in NSR since on 12.5 mg atenolol PO qhs; follows q6MO as outpatient w/ Dr. Jasso), Lyme disease, and Babesiosis, who presented to the ED on 03/30/2020 after being seen earlier in the day in [place] by her outpatient Lyme and Babesiosis physician and being told that she was tach ycardic, hypertensive, and had possible atrial flutter on in office EKG. Despite the fact her outpatient provider wanted her to be seen at a local [place] ED as soon as possible, she decided to have her drive her back north to [place] as she was leery of going to an emergency department in [facility] due to increasing coronavirus numbers. She states that ever since her diagnosis of Lyme and Babesiosis, she is experienced chronic persistent fatigue as well as intermittent palpitations, "gut pain and spasms," as well as bloating. The past 3 weeks has seen these chronic symptoms moderately intensify and she particularly had a rough day on the day of ED presentation (03/30). The only change in routine that she could point to which occurred 3 weeks ago, was that she consumed an [id number] supplement that contained green tea extract and caffeine, and she usually does not have caffeine. Upon review of her medical history, she states that in October 2016 she presented to the [facility] ED and was found to be in atrial flutter. She was given oral and intravenous Lopressor, as well as one dose of digoxin and subsequently converted back to sinus rhythm. After this episode, she established with Dr. Jasso for outpatient cardiology care and follows with him every 6 months. She has remained in normal sinus rhythm on rechecks with Dr. Jasso and has been taking 12.5 mg po atenolol every evening for the past 3 years. In addition, she received anticoagulation coverage in the form of 20 mg qd Xarelto. Upon ED presentation, she reported consistently taking her atenolol and Xarelto as prescribed. In the ED, she was hypertensive and tachycardic. An EKG revealed atrial flutter/tachycardia with rapid ventricular response. She was first administered 0.125 mg IV digoxin, oral 25 mg, Lopressor, and 5 mg IV Lopressor at 182. She then received a second 5 mg IV Lopressor at 183, and a third at 184. She did not have conversion after these medications and remained hypertensive. At 194. She was administered 0.25 mg IV digoxin, and again did not convert. She ultimately was administered 20 mg IV labetalol at 2151; once again, she remained hypertensive and did not convert out of atrial flutter. At this point, the ED contacted the hospitalist service to admit the patient. After careful review of her history, as well as the meds she'd received to that point, the hospital service contacted the on-call salesperson automobiles, Dr. Jacques Galarza. After reviewing the EKG confirming the patient was in atrial flutter with a 2:1 AV conduction, Dr. Galarza recommended the patient receive a 150 mg IV amiodarone dose to be infused over 10 minutes. Upon recheck after this infusion, the patient remained in atrial flutter and hypertensive. A second 150 mg IV amiodarone dose was then given, along with a 50 mg dose of oral atenolol. After the second amiodarone infusion ended, the patient remained in atrial flutter and hypertensive. Per Dr. Galarza's recommendation, amiodarone 200 mg po qid was ordered and the patient was brought to the progressive care unit with telemetry monitoring. She was admitted under the care of the hospitalist service with chief diagnosis of atrial flutter with rapid ventricular response, mild transaminitis, hypertension, and polycythemia. PAST MEDICAL HISTORY: Atrial flutter diagnosed in 2017, maintained atenolol and Xarelto as outpatient History of Lyme disease, diagnosed 2017 History of Babesiosis, diagnosed in 2017 PAST SURGICAL HISTORY: 3 laparotomies Appendectomy during one of her laparotomies 2 breast biopsies of the left breast 3 wisdom teeth removed SOCIAL HISTORY: , lives with her in [place]. 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 Former smoker having quit roughly 30 years ago. She smoked cigarettes for 15 years, averaging one half of a pack per day She reports a significant alcohol history in the form of drinking 2-3 glasses of wine every night for roughly 20 years, but has not had any alcohol since 2017 Other than rare her want to use many years ago, patient denies any current or former illegal drug use. FAMILY HISTORY: Father: at 39 years old, myocardial infarction. Mother: at 82, atrial fibrillation unspecified heart disease. Brother: at 69 years old after cardiac arrest in the setting of coronary artery disease ALLERGIES: Please see below. REVIEW OF SYSTEMS: CONSTITUTIONAL: Reports generalized fatigue as her baseline. Denies recent unintentional change in weight, fevers, chills, or night sweats EYES: Reports decreased visual acuity left eye versus right eye (chronic). Denies eye pain. ENT: Reports bilateral tinnitus chronically. Denies ear pain, runny nose, sore throat, dysphagia, or odynophagia CARDIOVASCULAR: Reports intermittent upper abdominal pain that radiates to her chest, manifesting with chest discomfort and occasional feelings of palpitations. Denies chest pressure RESPIRATORY: Denies shortness of breath, cough, or pleuritic chest pain GASTROINTESTINAL: Reports upper abdominal pain that radiates to her chest as well as gut spasms and bloating. Denies recent blood in stool, constipation or diarrhea GENITOURINARY: Denies dysuria or hematuria NEUROLOGY: Denies headache, loss of consciousness, dizziness, syncope, numbness or paresthesias of extremities PSYCHIATRIC: Reports some anxiety associated with her medical issues HEMATOLOGIC: Denies easy bleeding or bruising LYMPHATIC: Denies any new lumps or bumps anywhere HOME MEDICATIONS: Please see below. PHYSICAL EXAMINATION: VITAL SIGNS: Temperature 98.1, pulse 143, respiratory rate 20, blood pressure 168/121, pulse oximetry, 97 % on room air. GENERAL: Pleasant female lying in bed. Appears in mild discomfort and somewhat anxious. Alert and oriented 3. HEENT: Normoephalic, atraumatic. Noninjected, anicteric sclera. PERRLA. EOMI. No pharyngeal erythema or exudate. NECK: Supple. Trachea midline. No lymphadenopathy appreciated. RESPIRATORY: Somewhat diminished tidal volume with no adventitious breath sounds appreciated. Breathing room air. Speaking full instances. CARDIOVASCULAR: Tachycardic rate. Atrial flutter. 2:1 AV conduction, as seen on telemetry. Possible background 2/6 systolic murmur. ABDOMEN: Soft, moderately tender in upper quadrants bilaterally. No distention. No rigidity. Normoactive bowel sounds. EXTREMITIES: Lower extremities are free of edema bilaterally. No signs of clubbing or cyanosis. 2+ radial pulses bilaterally. NEUROLOGICAL: Weak, alert and oriented 3. No focal neurologic deficits appreciated. Nondistended thick speech PSYCHIATRIC: Engaging, pleasant mood. Mildly anxious. Affect appears appropriate LABORATORY DATA: Please see below. IMAGING: Portable Chest Xray, 03/30/2020 FINDINGS: Cardiomegaly cannot be excluded. Lung oliver demonstrate chronic interstitial changes. No focal consolidation, effusion, or pneumothorax. Skeletal structures are intact. IMPRESSION: Questionable cardiomegaly. No focal consolidation or effusion. MICROBIOLOGY: Please see below. ASSESSMENT & PLAN: This is a 64yo female w/ notable h/o atrial flutter in 2017 (nsr since on atenolol and xarelto), Lyme disease, and Babesiosis , who presented to the ED on 03/30/20 after being advised to seek immediate medical care by an outpatient physician in [place] who administer an EKG that showed possible atrial flutter in the setting of tachycardia and elevated blood pressure. EKG in the ED showed atrial flutter 2:1 AV conduction with rapid ventricular response and after multiple medications over 3 hours (IV and oral Lopressor, digoxin, IV labetalol), the patient remained in a flutter with RVR and hypertensive. She was admitted primarily for further monitoring and treatment of her atrial flutter with RVR. #Atrial flutter 2:1 AV conduction with rapid ventricular response -Remained in a-flutter with RVR, status post oral and IV Lopressor, 2 doses of digoxin, IV labetalol given by ED -She continued to remain in a-flutter with RVR after admitting hospitalist service, upon recommendation of Dr. Galarza (cardiology), administered rxne-to-bknt tendon infusions of amiodarone and oral atenolol. -200 mg oral atenolol qid ordered per cardiology -Telemetry monitoring -Due to the fact patient remained in atrial flutter with RVR despite all the aforementioned medications, official cardiology consultation to Dr. Galarza placed. Hospitalist service greatly appreciates the insight and recommendations from Dr. Galarza -Per cardiology's recommendation, patient was made npo except meds and sips/chips in preparation for possible cardioversion based on the cardiology services evaluation of patient -Home Xarelto dose was continued for DVT prophylaxis -TTE ordered to assess for any structural abnormalities/pathologies -Multiple troponin levels drawn and all have been unremarkable; EtOH level not elevated -Leading etiologies to explain aflutter-rvr px: worsening of Lyme/Babesiosis/associated stress vs caffeine ingestion (relatively caffeine bert) with supplement 3 weeks ago vs other #History of Lyme disease & Babesiosis -Follows with a Dr. Flores in [place] as outpatient -Reports chronic GI sxs, intermittent palpitations, and generalized fatigue as a result and sxs have been more intense over the past 3 weeks since consuming supplement with caffeine #Polycythemia -Hgb 16.3, Hct 48.1 -Of note, patient is a former smoker having quit over 30 years ago after smoking half a pack per day for 15 years -Follow-up morning CBC ordered #Transaminitis -ALT 100, AST 63 -Transaminitis is most indicative of a hepatocellular process -Possible etiologies are reactive process vs viral vs AU vs autoimmune; of note, pt does report h/o Babesiosis affecting her GI tract -morning CMP ordered #DVT Prophylaxis: Home Xarelto continued Disposition: Pending cardiology evaluation +/- possible cardioversion; anticipated at least 2 midnight stay. Vital Signs Vital Signs Date Time Temp Pulse Resp B/P (MAP) Pulse Ox O2 Delivery O2 Flow Rate FiO2 03/30/20 21:52 143 168/121 03/30/20 21:30 20 97 Room Air 03/30/20 17:55 98.1 Laboratory Data Labs 24H Laboratory Tests 2 03/30/20 18:11: Magnesium Level 2.3, Ethyl Alcohol Level 0.003 03/30/20 18:13: Immature Granulocyte % (Auto) 0.3, Neutrophils (%) (Auto) 74.0H, Lymphocytes (%) (Auto) 16.2L, Monocytes (%) (Auto) 9.0H, Eosinophils (%) (Auto) 0.1, Basophils (%) (Auto) 0.4, Neutrophils # (Auto) 7.5, Lymphocytes # (Auto) 1.6, Monocytes # (Auto) 0.9H, Eosinophils # (Auto) 0.0, Basophils # (Auto) 0.0, Nucleated Red Blood Cells % (auto) 0.0, Prothrombin Time 14.3H, Prothromb Time International Ratio 1.09, Activated Partial Thromboplast Time 30.0, Anion Gap 4L, Glomerular Filtration Rate > 60.0, Calcium Level 8.7L, Total Bilirubin 0.6, Direct Bilirubin 0.2, Aspartate Amino Transf (AST/SGOT) 63H, Alanine Aminotransferase (ALT/SGPT) 100H, Alkaline Phosphatase 103, Total Creatine Kinase 82, Creatine Kinase MB 3.0, Creatine Kinase MB Relative Index 3.66, Troponin I < 0.02, Total Protein 6.1L, Albumin 3.6, Albumin/Globulin Ratio 1.4, Thyroid Stimulating Hormone (TSH) 2.050, Free Thyroxine 1.30, Digoxin Level 0.1L CBC/BMP Laboratory Tests 03/30/20 18:13 Home Medications Scheduled Ascorbic Acid (Vitamin C) 250 Mg Tablet, 250 MG PO DAILY TAKES AT LUNCHTIME Atenolol (Atenolol) 25 Mg Tablet, 12.5 MG PO QHS Diltiazem Hcl (Cardizem Cd) 120 Mg Cap.er.24h, 240 MG PO DAILY Glutamine (l-Glutamine) 500 Mg Tablet, 500 MG PO DAILY TAKES AT LUNCHTIME Magnesium Oxide (Magnesium Oxide) 400 Mg Tablet, 400 MG PO DAILY TAKES AT LUNCHTIME Rivaroxaban (Xarelto) 15 Mg Tablet, 15 MG PO DAILY@18 Vitamin B Complex (Vitamin B Complex) 1 Each Tablet, 1 TAB PO DAILY TAKES AT LUNCHTIME Vitamin E (Dl,Tocopheryl Acet) (Vitamin E) 400 Unit Capsule, 400 UNIT PO DAILY TAKES AT LUNCHTIME Allergies Coded Allergies: Sulfa (Sulfonamide Antibiotics) (Verified Allergy, Mild, rash, 03/30/20) A-FIB/CHADSVASC A-FIB History Current/History of A-Fib/PAF?: Yes Current PO Anticoag Therapy: Yes GME ATTESTATION GME ATTESTATION My faculty preceptor for this patient encounter was physically present during the encounter and was fully available. All aspects of the patient interview, examination, medical decision making process, and medical care plan development were reviewed and approved by the faculty preceptor. The faculty preceptor is aware and concurs with the plan as stated in the body of this note and will attest to such by his/her cosignature. ATTENDING NOTE TIME OF SERVICE 1112PM Ms. Arreola is a 64 yr old w a hx of, a fib, babesiosis and lymes dz who came to the ER after found to be in RVR at one of her doctors offices; she will be admitted for #rapid afib/flutter # a hepatic pattern of transaminitis Rest per Dr.Schwarzs Regalado&P FARRAH SUMMERS D.O. Mar 30, 2020 22:03 ROSSANA HERNÁNDEZ MD Mar 30, 2020 23:57
[2020-03-30 22:39] LABS: NT-PRO BNP 1509 PG/ML (<125)
[2020-03-30] MEDS ORDERED: AMIODARONE HCL 150 MG in IV 1 EA IV STA (23:45)
[2020-03-31] MEDS ORDERED: ACETAMINOPHEN TAB 650MG DOSE (2X325MG) PO PRN
[2020-03-31] MEDS ORDERED: AMIODARONE HCL 150 MG in IV 1 EA IV STA (00:28)
[2020-03-31] MEDS ORDERED: atenoloL 50 MG TAB PO ONE (00:30)
[2020-03-31 01:17] LABS: D-DIMER QUANT 584.22 ng/ml (<500)
[2020-03-31] MEDS ORDERED: RAMELTEON 8 MG TAB (ROZEREM) PO ONE ×2 (02:15→21:00)
[2020-03-31 02:40] VITALS: BP 156/113
[2020-03-31 05:42] LABS: HEMOGLOBIN 14.5 g/dl (12.0-15.5); MEAN CORPUSCULAR HEMOGLOBIN 31.3 pg (27.0-33.0); PLATELET COUNT, AUTOMATED 249 10^3/uL (150-450); RED BLOOD COUNT 4.63 10^6/uL (4.00-5.40); WHITE BLOOD COUNT 7.9 10^3/uL (4.0-10.0)
[2020-03-31 06:19] LABS: ALBUMIN 3.1 GM/DL (3.2-5.2); ALT/SGPT 79 U/L (12-78); BILIRUBIN,TOTAL 0.5 MG/DL (0.2-1.0); BLOOD UREA NITROGEN 16 MG/DL (7-18); CALCIUM LEVEL 8.4 MG/DL (8.8-10.2); CARBON DIOXIDE LEVEL 27 MEQ/L (21-32); CHLORIDE LEVEL 109 MEQ/L (98-107); CREATININE FOR GFR 0.72 MG/DL (0.55-1.30); GLOMERULAR FILTRATION RATE > 60.0 (>45); GLUCOSE, FASTING 83 MG/DL (70-100); POTASSIUM SERUM 3.9 MEQ/L (3.5-5.1); SODIUM LEVEL 143 MEQ/L (136-145); TOTAL PROTEIN 5.1 GM/DL (6.4-8.2); TROPONIN I < 0.02 NG/ML (< 0.10)
[2020-03-31 08:00] VITALS: BP 124/86
[2020-03-31] MEDS: AMIODARONE 200 MG TAB (PACERONE) PO SCH ×4 (08:11→20:08)
[2020-03-31] MEDS ORDERED: CHLORTHALIDONE 25 MG TAB PO ONE (09:00)
[2020-03-31] MEDS ORDERED: atenoloL 50 MG TAB PO SCH (09:00)
[2020-03-31] MEDS ORDERED: POTASSIUM CHLORIDE 10 MEQ SR TABLET PO ONE (09:00)
[2020-03-31 12:00] VITALS: BP 129/104
--- NOTE | 2020-03-31 12:07 | IPNPDOC ---
Text Note Date of Service The patient was seen on 03/31/20. NOTE Subjective: Patient complains of palpitations, denies any chest pain, shortness of breath, diarrhea or dysuria Objective: GENERAL APPEARANCE: NAD HEENT: no scleral icterus, no JVD, EOMI CARDIOVASCULAR: Irregularly irregular, heart rate 130s LUNGS: CTA ABDOMEN: soft & not tender w palpitation MUSCULOSKELETAL: no cyanosis, no swelling INTEGUMENT: no generalized palor NEUROLOGICAL: cranial nerve function from 2-12 intact intact, follows commands, speech not dysarthric Assessment and plan Patient is 64 years old female with past history of atrial flutter on Xarelto, Lyme diseases, babesiosis was admitted with atrial flutter Atrial flutter Heart rate is poorly controlled, patient continues to have heart rate around 130 Dr. Galarza follows him, he recommended digoxin, continue amiodarone and Cardizem Also he recommended electrophysiological study for possible ablation but patient refused History of Lyme disease & Babesiosis Patient has been treated for Lyme diseases with course of doxycycline in 2018 According to patient she was prescribed atovaquone 3 days ago by her poultry picking machine tender in [place] but she didn't take any tablets. She states that she's been treated for babesiosis with her herbal medication I will check Babesiosis PCR and peripheral smear VS,Carlyle, I+O VS, Carlyle, I+O Laboratory Tests 03/30/20 18:13 03/31/20 05:02 Vital Signs Date Time Temp Pulse Resp B/P (MAP) Pulse Ox O2 Delivery O2 Flow Rate FiO2 03/31/20 09:32 139 130/96 03/31/20 08:00 97.1 16 100 Room Air I&O- Last 24 Hours up to 6 AM 03/31/20 06:00 Intake Total 230 ml Output Total 0 ml Balance 230 ml LEANA GUZMAN DO Mar 31, 2020 12:07
[2020-03-31] MEDS ORDERED: DIGOXIN 0.25 MG TAB PO ONE ×2 (13:00→22:00)
[2020-03-31 16:00] VITALS: BP 127/94
--- NOTE | 2020-03-31 16:29 | CR ---
CONSULTATION DATE: / / REFERRING PHYSICIAN: Dr. Timoteo Clement REASON FOR CONSULTATION: Typical atrial flutter, systemic hypertension. HISTORY OF PRESENT ILLNESS: Mrs. Nela Arreola is a pleasant, 64-year-old woman with paroxysmal typical atrial flutter which was first diagnosed October, for which she converted spontaneously to sinus rhythm. She has systemic hypertension, abnormal ECG, history of some PVCs and heart murmur. Echocardiogram Doppler 11/12/2016 reported hyperdynamic LV systolic function (LVEF 75%) with normal LV size and wall thickness. At least mild left atrial dilatation. Moderate elevation of estimated right ventricular systolic pressure (41 mmHg) and normal RV systolic function, mild mitral annular calcification with trace mitral regurgitation. Mild to moderate tricuspid regurgitation. A regadenoson stress SPECT myocardial perfusion imaging study, October, was normal with regards to stress myocardial perfusion and LV systolic function. The patient has a history of Lyme disease and has chronic babesiosis. The patient was at the office of her Lyme disease/ babesiosis specialist yesterday and was discovered to have a rapid rate. She was advised to go to the emergency room. She decided to come to [facility] to be assessed in the ER rather than going to an ER in [place] because of concern for high amount of COVID currently in [place]. In the ER at [facility], she was noted to have atrial flutter with 2:1 AV conduction with rapid response. In the ER, she received multiple doses of digoxin and various beta blockers. She was admitted for further management of atrial flutter with rapid response. She was also admitted to manage severely uncontrolled systemic hypertension. The patient, I believe that she has been feeling intermittent fluttering sensation in the center of her chest of a very slight degree since some time in February,. For about three weeks now, she has noticed a variable degree of exertional dyspnea which sometimes occurs with less notary activity and other times occurs for the above ordinary physical activity. For a long time, she has noted a trace amount of edema in her legs at the end of the day when she takes her stockings off. No orthopnea or PND. No numbness, weakness, paralysis or stroke-like symptoms, no pain, pressure, tightness or squeezing in the chest with exertion. She reports that she has chronic pain in various parts of her body throughout which have really not changed since she attributes that to Lyme disease and babesiosis. No intermittent claudication. PAST MEDICAL AND SURGICAL HISTORY: Babesiosis, Lyme disease, typical atrial flutter (diagnosed in October,), systemic hypertension, anxiety, three prior laparotomies, status post appendectomy. Breast biopsies of the left breast. Removal of wisdom teeth. FAMILY HISTORY: Father of a heart attack at age 39. Mother had systemic hypertension and at age 82. One brother with a heart attack at age 46 and at age 69. SOCIAL HISTORY: , retired. She quit alcohol consumption three years ago. Prior smoking history (remote). REVIEW OF SYSTEMS: Chronic fatigue. Chronic bilateral tinnitus. Intermittent upper abdominal pain. Anxiety. No depression. All other 12-point review of systems negative. ADVERSE DRUG REACTIONS: SULFA (RASH), VASOCON-A (THROAT SWELLING), TETANUS TOXOID VACCINE. MEDICATIONS PRIOR TO ADMISSION: Ascorbic acid 250 mg daily, atenolol 12.5 mg q.h.s., Glutamine 500 mg daily, magnesium oxide 400 mg daily, Xarelto 20 mg h.s., vitamin B complex one daily, vitamin E 400 international units daily. CURRENT MEDICATIONS IN THE HOSPITAL: Acetaminophen 650 mg q.4h. p.r.n., amiodarone 200 mg. p.o. q.i.d., diltiazem 60 mg q.i.d., Xarelto 15 mg daily. PHYSICAL EXAMINATION: A pleasant woman who appears her chronological age who is not in any respiratory or psychologic distress. Height 63 inches, weight 61.1 kilograms, BMI 23.9. Temperature 98.1, pulse 128, respiratory rate 18, BP 143/96, O2 saturation 98% on room air. Oral mucosa was moist and without pallor or cyanosis. No conjunctival pallor, scleral icterus or xanthelasmas. Jugular venous pulsations were at 10 cm. with FF-waves. Trachea midline. No palpable thyroid. No clubbing of the nail beds, cyanosis or splinter hemorrhages. No skin lesions, skin pallor, or icterus. Oriented to person, place and time. Mood and affect normal. Curvature of the spine was normal. Gait testing deferred. Gross motor strength and tone appeared normal. No abnormal muscle atrophy, fasciculations or tremors. Respiratory expansion and effort was good. No crackles or wheezes. No palpable apex beat. No parasternal lifts, heaves, thrills, or palpable heart sounds. First heart sounds normal. The second heart sound was loud. No S3. Grade II-III pansystolic murmurs present over the mid and lower left parasternal border. No radiation to the carotids. Carotids were normal in volume and contour, and without bruits. No carotid bruits. Abdomen was soft, nontender, with normal bowel sounds. No palpable abdominal aorta. Femoral pulse normal. Pedal pulses normal. No peripheral edema. The abdomen was soft and nontender with normal bowel sounds. No hepatosplenomegaly or other organomegaly. Liver span 10 cm in the right midline. Stool for occult blood not presently indicated. INVESTIGATIONS: Electrocardiogram, 03/30/2020 at 1808 hours shows typical atrial flutter with 2:1 AV conduction with rapid ventricular response at 153 BPM, poor R wave progression. Indeterminate QRS axis. Portable AP chest x-ray, 03/30/2020 report questionable cardiomegaly. No focal consolidation or effusion. Lung oliver report did show chronic interstitial changes. Laboratory work, 03/31/2020 was reviewed: WBC 7.9, hemoglobin 14.5, hematocrit 44.0, platelets 249. Sodium 143, potassium 3.9, chloride 109, BUN 16, creatinine 0.72, estimated GFR greater than 60. Calcium low at 8.4. Total bilirubin normal. AST elevated at 44. ALT elevated at 79. Alkaline phosphatase normal. Troponin I less than 0.02. Total protein low at 5.1. Albumin low at 3.1. TSH 1.6. ASSESSMENT AND RECOMMENDATIONS: 1. Typical atrial flutter. As a snf strategy, I discussed radiofrequency ablation of typical atrial flutter with the patient and explained a snf success rate of 95-99% with RF ablation. She was agreeable to this. My plan is to refer her to an beverage server in [place] on an elective outpatient basis for consideration of RF ablation of typical atrial flutter. I explained to the patient that on the short-term basis, we can go with either a rate control approach including anticoagulation versus electrical cardioversion versus antiarrhythmic drug therapy. The patient prefers not to go with cardioversion at this time. She was agreeable to try a short course of amiodarone while she is in the hospital. For rate control, I have switched her from beta julien (atenolol) to diltiazem beginning in a dose of 60 mg p.o. q.i.d. Until she is at a steady state on diltiazem, I will supplement heart rate control with additional doses of digoxin. I have ordered an additional dose of digoxin 0.25 mg p.o. now. I have reduced the dosage of Xarelto from 20 mg daily to 50 mg daily because I have added diltiazem which can elevate the anticoagulation effects of Xarelto because of its interference with certain enzyme systems in the liver. Once the patient's heart rate has come under control, she will be safe for discharge. 2. Systemic Hypertension: Her blood pressure is starting to improve nicely with diltiazem. I will continue to follow her with regards to systemic hypertension while she is in the hospital and adjust medications as needed. I did order a single dose of chlorthalidone this morning to help improve blood pressure control. 3. With regards to heart murmur, the patient had an echocardiogram Doppler earlier today. I will review and report the echocardiogram Doppler later on today. In the past, she has been known to have mild to moderate tricuspid regurgitation from the echocardiogram Doppler, 11/12/2016. .Thank you kindly for asking me to participate in the cardiac care of this patient. VIVI
[2020-03-31] MEDS: RIVAROXABAN 15 MG TAB (XARELTO) PO SCH (17:46)
[2020-03-31 20:00] VITALS: BP 132/90
[2020-04-01 04:00] VITALS: BP 115/78
[2020-04-01 05:36] LABS: BASO % 0.5 % (0.0-1.0); EOS # 0.1 10^3/uL (0.0-0.5); EOS % 0.9 % (0.0-3.0); HEMATOCRIT 48.4 % (36.0-47.0); HEMOGLOBIN 15.6 g/dl (12.0-15.5); LYMPH # 2.1 10^3/uL (1.5-5.0); LYMPH % 32.3 % (24.0-44.0); MEAN CORPUSCULAR HEMOGLOBIN 31.1 pg (27.0-33.0); MEAN CORPUSCULAR HGB CONC 32.2 g/dl (32.0-36.5); MEAN CORPUSCULAR VOLUME 96.4 fl (80.0-96.0); MONO # 0.6 10^3/uL (0.0-0.8); MONO % 9.7 % (0.0-5.0); NEUTROPHILS # 3.7 10^3/uL (1.5-8.5); NEUTROPHILS % 56.4 % (36.0-66.0); PLATELET COUNT, AUTOMATED 254 10^3/uL (150-450); RED BLOOD COUNT 5.02 10^6/uL (4.00-5.40); WHITE BLOOD COUNT 6.6 10^3/uL (4.0-10.0)
[2020-04-01 06:09] LABS: ALBUMIN 3.2 GM/DL (3.2-5.2); ALT/SGPT 76 U/L (12-78); BILIRUBIN,TOTAL 0.9 MG/DL (0.2-1.0); BLOOD UREA NITROGEN 16 MG/DL (7-18); CALCIUM LEVEL 8.6 MG/DL (8.8-10.2); CARBON DIOXIDE LEVEL 28 MEQ/L (21-32); CHLORIDE LEVEL 104 MEQ/L (98-107); GLOMERULAR FILTRATION RATE > 60.0 (>45); GLUCOSE, FASTING 86 MG/DL (70-100); MAGNESIUM LEVEL 2.1 MG/DL (1.8-2.4); POTASSIUM SERUM 4.8 MEQ/L (3.5-5.1); SODIUM LEVEL 141 MEQ/L (136-145); TOTAL PROTEIN 5.4 GM/DL (6.4-8.2)
--- NOTE | 2020-04-01 07:32 | ECGEPIP ---
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
[2020-04-01 08:00] VITALS: BP 125/84
[2020-04-01] MEDS ORDERED: DIGOXIN 0.125 MG TAB PO SCH (09:00)
[2020-04-01] MEDS: AMIODARONE 200 MG TAB (PACERONE) PO SCH (09:02)
[2020-04-01] MEDS ORDERED: CARD120C3 PO (10:22)
[2020-04-01] MEDS ORDERED: XARE15TA PO (10:22)
[2020-04-01] MEDS ORDERED: DIGO0.253 PO (10:22)
[2020-04-01 12:00] VITALS: BP 128/85
[2020-04-01] MEDS ORDERED: DIGOXIN 0.125 MG TAB PO ONE (12:15)
--- NOTE | 2020-04-01 12:26 | DS.PDOC ---
Discharge Summary General Date of Admission Mar 30, 2020 at 21:46 Date of Discharge 04/03/20 Discharge Summary PROCEDURES PERFORMED DURING STAY: [None]. ADMITTING DIAGNOSES: Atrial flutter History of Lyme disease & Babesiosis Hypertension DISCHARGE DIAGNOSES: Atrial flutter History of Lyme disease & Babesiosis Hypertension COMPLICATIONS/CHIEF COMPLAINT: Rapid Atrial Fibrillation. HISTORY OF PRESENT ILLNESS: Mrs. Nela Arreola is a pleasant, 64-year-old woman with paroxysmal typical atrial flutter which was first diagnosed October, for which she converted spontaneously to sinus rhythm. She has systemic hypertension, abnormal ECG, history of some PVCs and heart murmur. Echocardiogram Doppler 11/12/2016 reported hyperdynamic LV systolic function (LVEF 75%) with normal LV size and wall thickness. At least mild left atrial dilatation. Moderate elevation of estimated right ventricular systolic pressure (41 mmHg) and normal RV systolic function, mild mitral annular calcification with trace mitral regurgitation. Mild to moderate tricuspid regurgitation. A regadenoson stress SPECT myocardial perfusion imaging study, October, was normal with regards to stress myocardial perfusion and LV systolic function. The patient has a history of Lyme disease and has chronic babesiosis. The patient was at the office of her Lyme disease/ babesiosis specialist yesterday and was discovered to have a rapid rate. She was advised to go to the emergency room. She decided to come to [facility] to be assessed in the ER rather than going to an ER in [place] because of concern for high amount of COVID currently in [place]. In the ER at [facility], she was noted to have atrial flutter with 2:1 AV conduction with rapid response. In the ER, she received multiple doses of digoxin and various beta blockers. She was admitted for further management of atrial flutter with rapid response. She was also admitted to manage severely uncontrolled systemic hypertension. The patient, I believe that she has been feeling intermittent fluttering sensation in the center of her chest of a very slight degree since some time in February,. For about three weeks now, she has noticed a variable degree of exertional dyspnea which sometimes occurs with less notary activity and other times occurs for the above ordinary physical activity. For a long time, she has noted a trace amount of edema in her legs at the end of the day when she takes her stockings off. No orthopnea or PND. No numbness, weakness, paralysis or stroke-like symptoms, no pain, pressure, tightness or squeezing in the chest with exertion. She reports that she has chronic pain in various parts of her body throughout which have really not changed since she attributes that to Lyme disease and babesiosis. No intermittent claudication HOSPITAL COURSE: During hospital stay patient received antiarrhythmic therapy with beta blockers, amiodarone and diltiazem. Cardiology team recommended RF ablation in the outpatient settings I have reduced the dosage of Xarelto from 20 mg daily to 50 mg daily because I have added diltiazem which can elevate the anticoagulation effects of Xarelto because of its interference with certain enzyme systems in the liver. On 04/02/20 cardioversion was done with positive effect DISCHARGE MEDICATIONS: Please see below. ALLERGIES: Please see below. PHYSICAL EXAMINATION ON DISCHARGE: VITAL SIGNS: Please see below. GENERAL APPEARANCE: NAD HEENT: no scleral icterus, no JVD, EOMI CARDIOVASCULAR: S1S2 LUNGS: CTA ABDOMEN: soft & not tender w palpitation MUSCULOSKELETAL: no cyanosis, no swelling INTEGUMENT: no generalized palor NEUROLOGICAL: cranial nerve function from 2-12 intact intact, follows commands, speech not dysarthric LABORATORY DATA: Please see below. PROGNOSIS: Fair ACTIVITY: [As tolerated]. DIET: Cardiac DISPOSITION: Home DISCHARGE INSTRUCTIONS: Follow-up with sole tier in [place] for radiofrequency ablation ITEMS TO FOLLOWUP ON ON OUTPATIENT: Follow-up with in 2 weeks DISCHARGE CONDITION: [Stable]. TIME SPENT ON DISCHARGE: Greater than 40 minutes. Vital Signs/I&Os Vital Signs Date Time Temp Pulse Resp B/P (MAP) Pulse Ox O2 Delivery O2 Flow Rate FiO2 04/01/20 12:00 97.4 133 20 128/85 (99) 98 Room Air I&O- Last 24 Hours up to 6 AM 04/01/20 06:00 Intake Total 600 ml Output Total 3750 ml Balance -3150 ml Laboratory Data Labs 24H Laboratory Tests 2 04/01/20 05:14: Immature Granulocyte % (Auto) 0.2, Neutrophils (%) (Auto) 56.4, Lymphocytes (%) (Auto) 32.3, Monocytes (%) (Auto) 9.7H, Eosinophils (%) (Auto) 0.9, Basophils (%) (Auto) 0.5, Neutrophils # (Auto) 3.7, Lymphocytes # (Auto) 2.1, Monocytes # (Auto) 0.6, Eosinophils # (Auto) 0.1, Basophils # (Auto) 0.0, Nucleated Red Blood Cells % (auto) 0.0, Anion Gap 9, Glomerular Filtration Rate > 60.0, Calci um Level 8.6L, Magnesium Level 2.1, Total Bilirubin 0.9#, Aspartate Amino Transf (AST/SGOT) 39H, Alanine Aminotransferase (ALT/SGPT) 76, Alkaline Phosphatase 87, Total Protein 5.4L, Albumin 3.2, Albumin/Globulin Ratio 1.5 CBC/BMP Laboratory Tests 04/01/20 05:14 Discharge Medications Scheduled Ascorbic Acid (Vitamin C) 250 Mg Tablet, 250 MG PO DAILY, (Reported) TAKES AT LUNCHTIME Atenolol (Atenolol) 25 Mg Tablet, 12.5 MG PO QHS, (Reported) Diltiazem Hcl (Cardizem Cd) 120 Mg Cap.er.24h, 240 MG PO DAILY Glutamine (l-Glutamine) 500 Mg Tablet, 500 MG PO DAILY, (Reported) TAKES AT LUNCHTIME Magnesium Oxide (Magnesium Oxide) 400 Mg Tablet, 400 MG PO DAILY, (Reported) TAKES AT LUNCHTIME Rivaroxaban (Xarelto) 15 Mg Tablet, 15 MG PO DAILY@18 Vitamin B Complex (Vitamin B Complex) 1 Each Tablet, 1 TAB PO DAILY, (Reported) TAKES AT LUNCHTIME Vitamin E (Dl,Tocopheryl Acet) (Vitamin E) 400 Unit Capsule, 400 UNIT PO DAILY, (Reported) TAKES AT LUNCHTIME Allergies Coded Allergies: Sulfa (Sulfonamide Antibiotics) (Verified Allergy, Mild, rash, 03/30/20) LEANA GUZMAN DO Apr 01, 2020 12:26
[2020-04-01 16:00] VITALS: BP 130/86
[2020-04-01] MEDS: RIVAROXABAN 15 MG TAB (XARELTO) PO SCH (16:59)
[2020-04-01 20:00] VITALS: BP 132/88
[2020-04-01] MEDS: RAMELTEON 8 MG TAB (ROZEREM) PO PRN (23:12)
[2020-04-02] VITALS (7 sets, daily range): BP systolic 109–143; BP diastolic 66–99
[2020-04-02] MEDS ORDERED: D5W/0.9% SODIUM CHLORIDE 1,000 ML IV SCH (07:00)
[2020-04-02 07:02] LABS: BASO % 0.4 % (0.0-1.0); EOS # 0.1 10^3/uL (0.0-0.5); EOS % 0.9 % (0.0-3.0); HEMATOCRIT 51.9 % (36.0-47.0); HEMOGLOBIN 17.2 g/dl (12.0-15.5); LYMPH % 26.9 % (24.0-44.0); MEAN CORPUSCULAR HEMOGLOBIN 31.2 pg (27.0-33.0); MEAN CORPUSCULAR HGB CONC 33.1 g/dl (32.0-36.5); MONO # 0.8 10^3/uL (0.0-0.8); MONO % 10.5 % (0.0-5.0); NEUTROPHILS # 4.5 10^3/uL (1.5-8.5); NEUTROPHILS % 60.8 % (36.0-66.0); PLATELET COUNT, AUTOMATED 291 10^3/uL (150-450); RED BLOOD COUNT 5.52 10^6/uL (4.00-5.40); WHITE BLOOD COUNT 7.4 10^3/uL (4.0-10.0)
[2020-04-02 07:16] LABS: ALBUMIN 3.4 GM/DL (3.2-5.2); ALT/SGPT 68 U/L (12-78); BILIRUBIN,TOTAL 1.1 MG/DL (0.2-1.0); BLOOD UREA NITROGEN 19 MG/DL (7-18); CALCIUM LEVEL 8.8 MG/DL (8.8-10.2); CARBON DIOXIDE LEVEL 28 MEQ/L (21-32); CHLORIDE LEVEL 105 MEQ/L (98-107); CREATININE FOR GFR 0.84 MG/DL (0.55-1.30); GLOMERULAR FILTRATION RATE > 60.0 (>45); GLUCOSE, FASTING 79 MG/DL (70-100); MAGNESIUM LEVEL 2.1 MG/DL (1.8-2.4); POTASSIUM SERUM 4.4 MEQ/L (3.5-5.1); SODIUM LEVEL 141 MEQ/L (136-145); TOTAL PROTEIN 5.8 GM/DL (6.4-8.2)
[2020-04-02] MEDS ORDERED: DIGOXIN 0.25 MG TAB PO SCH (09:00)
[2020-04-02] MEDS ORDERED: propofoL 200 MG/20 ML VIAL As Ordered ONE (11:14)
[2020-04-02] MEDS ORDERED: LIDOCAINE 2% 100MG/5ML SDV (FOR ANES.) As Ordered ONE (11:14)
--- NOTE | 2020-04-02 11:24 | IPNPDOC ---
Text Note Date of Service The patient was seen on 04/02/20. NOTE Subjective: Patient continues to have palpitations, denies any chest pain, s hortness of breath, diarrhea or dysuria Objective: GENERAL APPEARANCE: NAD HEENT: no scleral icterus, no JVD, EOMI CARDIOVASCULAR: Irregularly irregular, heart rate 130s LUNGS: CTA ABDOMEN: soft & not tender w palpitation MUSCULOSKELETAL: no cyanosis, no swelling INTEGUMENT: no generalized palor NEUROLOGICAL: cranial nerve function from 2-12 intact intact, follows commands, speech not dysarthric Assessment and plan Patient is 64 years old female with past history of atrial flutter on Xarelto, Lyme diseases, babesiosis was admitted with atrial flutter Atrial flutter Heart rate is poorly controlled, patient continues to have heart rate around 130 Dr. Galarza follows her, he recommended digoxin, continue amiodarone and Cardizem. Plan for cardioversion today Also he recommended electrophysiological study for possible ablation in the outpatient settings History of Lyme disease & Babesiosis Patient has been treated for Lyme diseases with course of doxycycline in 2019 According to patient she was prescribed atovaquone 3 days ago by her ticker maintainer in [place] but she didn't take any tablets. She states that she's been treated for babesiosis with her herbal medication Await Babesiosis PCR and peripheral smear VS,Carlyle, I+O VS, Carlyle, I+O Laboratory Tests 04/02/20 05:46 Vital Signs Date Time Temp Pulse Resp B/P (MAP) Pulse Ox O2 Delivery O2 Flow Rate FiO2 04/02/20 08:46 135 04/02/20 08:46 130/90 04/02/20 08:00 97.3 17 96 Room Air I&O- Last 24 Hours up to 6 AM 04/02/20 06:00 Intake Total 1040 ml Output Total 1600 ml Balance -560 ml LEANA GUZMAN DO Apr 02, 2020 11:24
[2020-04-02] MEDS: RIVAROXABAN 15 MG TAB (XARELTO) PO SCH (17:24)
[2020-04-02] MEDS: RAMELTEON 8 MG TAB (ROZEREM) PO PRN (20:20)
[2020-04-03 04:00] VITALS: BP 139/73
[2020-04-03 06:14] LABS: BASO % 0.3 % (0.0-1.0); EOS # 0.1 10^3/uL (0.0-0.5); EOS % 0.6 % (0.0-3.0); HEMATOCRIT 50.9 % (36.0-47.0); HEMOGLOBIN 17.1 g/dl (12.0-15.5); LYMPH # 2.3 10^3/uL (1.5-5.0); LYMPH % 30.1 % (24.0-44.0); MEAN CORPUSCULAR HGB CONC 33.6 g/dl (32.0-36.5); MEAN CORPUSCULAR VOLUME 95.3 fl (80.0-96.0); MONO # 0.7 10^3/uL (0.0-0.8); MONO % 9.1 % (0.0-5.0); NEUTROPHILS # 4.6 10^3/uL (1.5-8.5); NEUTROPHILS % 59.5 % (36.0-66.0); PLATELET COUNT, AUTOMATED 268 10^3/uL (150-450); RED BLOOD COUNT 5.34 10^6/uL (4.00-5.40); WHITE BLOOD COUNT 7.7 10^3/uL (4.0-10.0)
[2020-04-03 06:38] LABS: ALBUMIN 3.3 GM/DL (3.2-5.2); ALT/SGPT 61 U/L (12-78); BILIRUBIN,TOTAL 0.8 MG/DL (0.2-1.0); BLOOD UREA NITROGEN 26 MG/DL (7-18); CALCIUM LEVEL 8.6 MG/DL (8.8-10.2); CARBON DIOXIDE LEVEL 27 MEQ/L (21-32); CHLORIDE LEVEL 104 MEQ/L (98-107); CREATININE FOR GFR 0.81 MG/DL (0.55-1.30); GLOMERULAR FILTRATION RATE > 60.0 (>45); GLUCOSE, FASTING 86 MG/DL (70-100); MAGNESIUM LEVEL 2.1 MG/DL (1.8-2.4); POTASSIUM SERUM 4.4 MEQ/L (3.5-5.1); SODIUM LEVEL 139 MEQ/L (136-145); TOTAL PROTEIN 5.8 GM/DL (6.4-8.2)
[2020-04-03 08:00] VITALS: BP 128/70
[2020-04-03 09:00] VITALS: BP 128/70
[2020-04-03] MEDS ORDERED: diltiaZEM **CD** 180 MG CAP PO SCH (09:00)
--- NOTE | 2020-04-03 09:32 | RO ---
OPERATIVE NOTE DATE OF OPERATION: 04/02/2020 PREPROCEDURE DIAGNOSIS: Typical atrial flutter. POSTOPERATIVE DIAGNOSIS: Sinus bradycardia. FINDINGS: Successful direct current cardioversion. PROCEDURE PERFORMED: Direct current cardioversion with reverse polarity, biphasic, 150 joules x1 shock. PROCEDURE PERFORMED BY: Jacques Galarza MD UNDERCUTTER OPERATOR: None. IV SEDATION: Propofol IV per SPREADER OPERATOR AUTOMATIC. COMPLICATIONS: None. PROCEDURE DESCRIPTION: Transthoracic pacing/defibrillation patches were applied by Dr. Galarza in reverse polarity with the sternal patch placed over the left posterior hemithorax and apical patch placed over the sternum. After the patient received adequate amounts of Propofol IV per SPREADER OPERATOR AUTOMATIC the patient received a single direct current biphasic synchronized 150 joules shock successfully returning the patient to sinus bradycardia in the 50s without any excessive sinus pauses observed. The patient tolerated the procedure well without any immediate complications. My plan at this point is to discontinue the Digoxin because it did not appear to be effective in slowing down the patient adequately when she was in rapid response with atrial flutter. I will increase Diltiazem CD to 300 mg once daily to help improve blood pressure control. Results of this procedure were explained by phone to Dr. Mi. cc: JACQUES GALARZA M.D.
--- NOTE | 2020-04-03 23:11 | ECGEPIP ---
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
--- NOTE | 2020-04-06 11:48 | ECHO ---
DATE OF PROCEDURE: 03/31/2020 Age: 64 Gender: Female Height: 63 inches Weight: 135 pounds REFERRING PHYSICIAN: Timoteo Rinaldi DO INDICATION: Typical atrial flutter, abnormal ECG. MEASUREMENTS: 2D Measurements: Aortic root 2.8 cm Left atrium 4.5 cm Left atrial volume index 65 cm Intraventricular septum 1.33 cm Posterior wall 1.50 cm Left ventricle diastole 2.5 cm TAPSE 2.5 cm Doppler Measurements: No aortic stenosis No aortic regurgitation Aortic valve velocity 112 cm/s LVOT velocity 53.2 cm/s LVOT VTI 9.4 cm Moderate mitral regurgitation No mitral stenosis Mitral E velocity 135 cm/s Severe tricuspid regurgitation Estimated right ventricular systolic pressure 43 mmHg Estimated right atrial pressure 15 mmHg No pulmonic regurgitation MITRAL ANNULAR TISSUE DOPPLER E prime lateral 8.6 cm/s DESCRIPTION: Rhythm was atrial flutter with 2:1 AV conduction with rapid ventricular response at 136 beats per minute. Image quality was adequate. This was a 2D, M-mode, color flow Doppler, and pulsed wave Doppler examination including mitral annular tissue Doppler. CONCLUSIONS: * Moderate concentric left ventricular hypertrophy with mild reduction of LV cavity size. Normal regional LV wall motion and wall thickening. Normal LV systolic function. LVEF of 65% by visual assessment. LV diastolic function could not be adequately accessed in the setting of atrial flutter. * Severe left atrial dilatation by left atrial volume index. * Moderate aortic valve sclerosis of a 3-cuspid aortic valve. No aortic regurgitation or aortic stenosis. * Moderate mitral annular calcification. Moderate mitral regurgitation with a posteriorly directed wall jet. No mitral valve prolapse. * Structurally normal appearing tricuspid leaflets. Severe tricuspid regurgitation suggestive of moderate elevation of estimated right ventricle systolic pressure (43 mmHg), estimated right atrial pressure of 15 mmHg. * Moderate right atrial dilatation. * Small intraventricular septal defect most likely an inlet ventricular septal defect (VSD) with a small amount of left ventricle to right ventricle shunting. The differential diagnosis would include perimembranous VSD or an overlap between a perimembranous VSD and an inlet VSD. No right ventricle to left ventricle shunting observed by color flow Doppler. * No atrial septal defect. * Small pericardial effusion without diastolic chamber collapse. MTDD
== END 2020-04-03 11:54 | disposition home or self-care (01) | DRG 309 ==
LOC: M ED 17:55 → M ED INP 21:46 → M PCU 03-31 02:33
PROVIDERS: ADMIT Internal Medicine; ATTEND Internal Medicine
PROC: 5A2204Z Restoration of Cardiac Rhythm, Single (ICD-10-PCS; principal; 2020-04-02)
DX: I48.3 Typical atrial flutter (principal); B60.00 Babesiosis, unspecified; I10 Essential (primary) hypertension; R74.01 Elevation of levels of liver transaminase levels; D75.1 Secondary polycythemia; H93.13 Tinnitus, bilateral; R53.82 Chronic fatigue, unspecified; G89.29 Other chronic pain; Z86.19 Personal history of other infectious and parasitic diseases; Z88.2 Allergy status to sulfonamides; Z79.01 Long term (current) use of anticoagulants; Z79.899 Other long term (current) drug therapy; Z88.7 Allergy status to serum and vaccine; Z87.891 Personal history of nicotine dependence; Z20.828 Contact with and (suspected) exposure to other viral communicable diseases

== ENCOUNTER 2020-04-10 08:18 | Inpatient (IN) | payer MEDICARE, OTHER ==
[~2020-04-10] VITALS: Ht 160 cm; Wt 57.9 kg
[2020-04-10] VITALS (7 sets, daily range): BP systolic 136–159; BP diastolic 88–103
[~2020-04-10 08:18] MED LIST changes: +CARD120C3 PO; +DIGO0.253 PO; +EQL50TAB2 PO; +L-GL500T5 PO; +MAGN400T3 PO; +VITA-259 PO; +VITA250T4 PO; +XARE15TA PO
[2020-04-10] MEDS ORDERED: CARD40TA PO (08:42)
[2020-04-10] MEDS ORDERED: AMIODARONE HCL 150 MG in IV 1 EA IV STA ×2 (10:10→12:38)
[2020-04-10] MEDS ORDERED: NS 1,000 ML IV SCH (11:37)
[2020-04-10] MEDS: propofoL 200 MG/20 ML VIAL IV ONE ×2 (12:15→12:29)
[2020-04-10 13:29] LABS: HEMATOCRIT 53.3 % (36.0-47.0); HEMOGLOBIN 17.4 g/dl (12.0-15.5); MEAN CORPUSCULAR HEMOGLOBIN 31.1 pg (27.0-33.0); MEAN CORPUSCULAR HGB CONC 32.6 g/dl (32.0-36.5); MEAN CORPUSCULAR VOLUME 95.2 fl (80.0-96.0); PLATELET COUNT, AUTOMATED 263 10^3/uL (150-450); WHITE BLOOD COUNT 5.9 10^3/uL (4.0-10.0)
--- NOTE | 2020-04-10 13:40 | REP ---
INDICATION: palpitaitons COMPARISON: 03/30/2020 TECHNIQUE: Portable AP view of the chest FINDINGS: The mediastinum and cardiac silhouette are stable and within normal limits for portable technique. The lung oliver are clear without acute consolidation, effusion, or pneumothorax. Skeletal structures are intact. IMPRESSION: No acute cardiopulmonary process appreciated. <Electronically signed by Tonio Ambrose > 04/10/20 [id number]
[2020-04-10] MEDS ORDERED: AMIODARONE HCL 360 MG in IV 1 EA IV SCH (13:45)
[2020-04-10] MEDS ORDERED: ACETAMINOPHEN TAB 650MG DOSE (2X325MG) PO PRN (13:45)
[2020-04-10 13:47] LABS: BASO % 0.7 % (0.0-1.0); EOS # 0.1 10^3/uL (0.0-0.5); EOS % 0.8 % (0.0-3.0); LYMPH # 2.1 10^3/uL (1.5-5.0); MONO # 0.4 10^3/uL (0.0-0.8); MONO % 6.5 % (0.0-5.0); NEUTROPHILS # 3.5 10^3/uL (1.5-8.5); NEUTROPHILS % 56.7 % (36.0-66.0)
[2020-04-10 13:56] LABS: ALBUMIN 3.4 GM/DL (3.2-5.2); ALT/SGPT 69 U/L (12-78); BILIRUBIN,TOTAL 0.5 MG/DL (0.2-1.0); BLOOD UREA NITROGEN 17 MG/DL (7-18); CALCIUM LEVEL 8.6 MG/DL (8.8-10.2); CARBON DIOXIDE LEVEL 27 MEQ/L (21-32); CHLORIDE LEVEL 107 MEQ/L (98-107); CK-MB VALUE MASS 1.2 NG/ML (<3.6); CPK CREATINE PHOSPHOKINASE 47 U/L (26-192); CREATININE FOR GFR 0.69 MG/DL (0.55-1.30); GLOMERULAR FILTRATION RATE > 60.0 (>45); GLUCOSE, FASTING 84 MG/DL (70-100); MB/CK RELATIVE INDEX 2.55 (< OR =4); SODIUM LEVEL 141 MEQ/L (136-145); TOTAL PROTEIN 5.7 GM/DL (6.4-8.2); TROPONIN I < 0.02 NG/ML (< 0.10)
--- NOTE | 2020-04-10 13:57 | ECGEPIP ---
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
[2020-04-10 14:09] LABS: RSV AMPLIFICATION NEGATIVE (NEGATIVE)
[2020-04-10] MEDS ORDERED: XARE15TA PO (14:14)
[2020-04-10] MEDS ORDERED: DICY10CA13 PO (14:14)
[2020-04-10] MEDS ORDERED: DICYCLOMINE 10 MG CAP PO PRN (14:30)
--- NOTE | 2020-04-10 14:57 | HPEPDOC ---
[facility] Medical History & Physical Date of Admission Apr 10, 2020 Date of Service: Apr 10, 2020 History and Physical Chief complaint: Who presented to the ER with complaints of palpitations History of present illness: Patient is a 64-year-old female with a PMHx Lyme disease (s/p treatment 2017), Babesiosis (Rx 2019) and Hx of A. flutter (Dx 2016; Follows w/ Dr. Galarza), who presented to the emergency room with complaints of palpitations. Patient reported that she woke up this morning and felt palpitations used her pulse oximeter and found that her heart rate was in the 130s. Patient denies any chest pain, did report shortness of breath with exertion, denied any cough. Of note, patient has recently had an admission to the hospital 03/30 and was discharged on 04/03. During the hospital stay, patient was found to be in atrial fibrillation and she was cardioverted by cardiology, Dr. Galarza. Patient was referred to [facility] for ablation. Patient reports that she chronically feels nauseated. Denies any vomiting. Reports some abdominal discomfort. Denies any aspiration, diarrhea, or urinary discomfort. Patient reports that she has been having regular bowel movements. Denies any recent fevers or chills. Patient reports her appetite is poor and may have experience some weight loss. Past Medical History: Lyme disease (s/p treatment 2017) Babesiosis (Rx 2019) Hx of A. flutter (Dx 2016; Follows sonya/ Dr. Galarza) Past Surgical History: 3 laparotomies; patient had an appendectomy during one of them 2 breast biopsies of the left breast 3 wisdom teeth resection Allergies: See below Medications: See below Family History: - Mother with a history of atrial fibrillation, at the age of 82 - Father with a history of heart attack, at the age of 39 Social History: - Denies the use of illicit drugs; patient used to drink alcohol at 2-3 glasses of wine daily but quit in 2017; patient quit smoking in 1987 but was a smoker 15 years at less than 0.5 PPD - Denies recent travel or sick contacts - Lives with - Occupation; 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 [employer] Review of Systems: 10 point review of systems complete, all negative otherwise stated in HPI Physical exam: - Vitals: BP [133/60], HR [152], RR [16], Sat [99%RA], Temp [98.2F] - General: Lying in bed, No acute distress, Speaking in full sentences, AAOx3 - HEENT: NC, AT, PERRLA - CVS: IrIr, +S1S2 - Lungs: Fair air entry bilaterally, No appreciable wheezing / rales / rhonchi - Abdomen: Soft, Non-distended, Non-tender - Extremities: No lower extremity edema, No calf tenderness - Neuro: No focal motor or sensory deficit - Skin: No visible rashes Labs: See below Imaging: CXR 04/10: No acute cardiopulmonary process appreciated. EKG: See below Assessment and Plan: Palpitations - likely 2/2 atrial fibrillation - Patient presented to the emergency room with complaints of palpitation - While in the ER, patient was found to have atrial fibrillation with RVR with a rate in the 130s - Patient initially received a dose of diltiazem IV, followed by amiodarone IV, she was then cardioverted; which had reverted her back to a sinus rhythm, however shortly thereafter returned back into atrial fibrillation, she was given another infusion of amiodarone - Currently patient reports that she is not expressing any chest pain but does report palpitations - TSH within normal range - Troponin trend x2 is negative; will continue to follow - Discussed case with her Warehouse Coordinator; Dr. Galarza; advised to continue with increased dose of rate control medications - Will c/w full anticoagulation with Xarelto Elevated Hg - Possible GERBER - Appears to be at baseline - Will check erythropoietin Lyme disease - s/p treatment 2016 Babesiosis - s/p treatment 2018 DVT prophylaxis - Will c/w Xarelto Vital Signs Vital Signs Date Time Temp Pulse Resp B/P (MAP) Pulse Ox O2 Delivery O2 Flow Rate FiO2 04/10/20 12:26 152 99 04/10/20 12:25 133/60 (84) 04/10/20 12:14 Nasal Cannula 2.0 04/10/20 10:09 98.2 04/10/20 09:48 16 Laboratory Data Labs 24H Laboratory Tests 2 04/10/20 08:30: Immature Granulocyte % (Auto) 0.3, Neutrophils (%) (Auto) 56.7, Lymphocytes (%) (Auto) 35.0, Monocytes (%) (Auto) 6.5H, Eosinophils (%) (Auto) 0.8, Basophils (%) (Auto) 0.7, Neutrophils # (Auto) 3.5, Lymphocytes # (Auto) 2.1, Monocytes # (Auto) 0.4, Eosinophils # (Auto) 0.1, Basophils # (Auto) 0.0, Immature Granulocyte # (Auto) 0.0, Nucleated Red Blood Cells % (auto) 0.0, Platelet Estimate , Thyroid Stimulating Hormone (TSH) 2.030 04/10/20 08:33: POC Glucose (Misc Panel) 132H, POC Sodium (Misc Panel) 140, POC Potassium (Misc Panel) 4.1, POC Chloride (Misc Panel) 101, POC Total CO2 (Misc Panel) 29.0H, POC Blood Urea Nitrogen (Misc Panel 20, POC Ionized Calcium (Misc Panel) 4.7, POC Creatinine (Misc Panel) 0.8, POC Hematocrit (Misc Panel) 50.0 04/10/20 08:34: POC Troponin I (Misc) 0.00 04/10/20 08:45: POC Prothrombin Time (Misc) 15.8H, POC INR (Misc) 1.3 04/10/20 12:55: Anion Gap 7L, Glomerular Filtration Rate > 60.0, Calcium Level 8.6L, Total Bilirubin 0.5, Aspartate Amino Transf (AST/SGOT) 40H, Alanine Aminotransferase (ALT/SGPT) 69, Alkaline Phosphatase 95, Total Creatine Kinase 47, Creatine Kinase MB 1.2, Creatine Kinase MB Relative Index 2.55, Troponin I < 0.02, Total Protein 5.7L, Albumin 3.4, Albumin/Globulin Ratio 1.5 04/10/20 13:21: Coronavirus (COVID-19)(PCR) NEGATIVE, Influenza Type A (RT-PCR) NEGATIVE, Influenza Type B (RT-PCR) NEGATIVE, Respiratory Syncytial Virus (PCR) NEGATIVE CBC/BMP Laboratory Tests 04/10/20 08:30 04/10/20 12:55 Home Medications Scheduled Ascorbic Acid (Vitamin C) 250 Mg Tablet, 250 MG PO DAILY TAKES AT LUNCHTIME Atenolol (Atenolol) 25 Mg Tablet, 12.5 MG PO QHS Diltiazem HCl (Cardizem) 30 Mg Tablet, 30 MG PO QID Glutamine (l-Glutamine) 500 Mg Tablet, 500 MG PO DAILY TAKES AT LUNCHTIME Magnesium Oxide (Magnesium Oxide) 400 Mg Tablet, 400 MG PO DAILY TAKES AT LUNCHTIME Rivaroxaban (Xarelto) 15 Mg Tablet, 15 MG PO QPM AFTER SUPPER Vitamin B Complex (Vitamin B Complex) 1 Each Tablet, 1 TAB PO DAILY TAKES AT LUNCHTIME Vitamin E (Dl,Tocopheryl Acet) (Vitamin E) 400 Unit Capsule, 400 UNIT PO DAILY TAKES AT LUNCHTIME Scheduled PRN Dicyclomine HCl (Dicyclomine HCl) 10 Mg Capsule, 10 MG PO TID PRN for I.B.S. Allergies Coded Allergies: Sulfa (Sulfonamide Antibiotics) (Verified Allergy, Mild, rash, 03/30/20) A-FIB/CHADSVASC A-FIB History Current/History of A-Fib/PAF?: Yes Current PO Anticoag Therapy: Yes Age/Risk Factor Scoring CHADSVASC: CHADSVASC Response (Comments) Value Age Risk Factor Age 65-74 years old 1 Gender Risk Factor Female 1 Hx of CHF No 0 Hx of HTN Yes 1 Hx of Stroke/TIA/or VTE No 0 Hx of Diabetes No 0 Hx of Vascular Disease No 0 Total 3 YULIANA BUCKNER MD Apr 10, 2020 14:57
[2020-04-10] MEDS ORDERED: atenoloL 25 MG TAB PO ONE (15:00)
--- NOTE | 2020-04-10 16:36 | ECGEPIP ---
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
--- NOTE | 2020-04-10 16:38 | ECGEPIP ---
[facility] - ED Test Date: 2020-04-10 Pat Name: MERCY RIVERA Department: Room: - Gender: Female Arch Support Maker: CAPRICE : 1955 Requested By: Sadaf Orellana Order Number: [id number] Reading MD: Sadaf Orellana Measurements Intervals [place] Rate: 135 P: OR: 0 QRS: 68 QRSD: 141 T: 44 QT: 397 QTc: 596 Interpretive Statements ATRIAL FLUTTER WITH RAPID VENTRICULAR RESPONSE INTRAVENTRICULAR CONDUCTION DELAY Electronically Signed on 04-10-2020 16:37:37 EST by Sadaf Orellana
[2020-04-10] MEDS ORDERED: RIVAROXABAN 15 MG TAB (XARELTO) PO SCH (18:00)
[2020-04-10] MEDS ORDERED: RAMELTEON 8 MG TAB (ROZEREM) PO PRN (18:15)
[2020-04-10 18:54] LABS: CK-MB VALUE MASS 1.1 NG/ML (<3.6); CPK CREATINE PHOSPHOKINASE 59 U/L (26-192); MB/CK RELATIVE INDEX 1.86 (< OR =4); TROPONIN I < 0.02 NG/ML (< 0.10)
[2020-04-11] VITALS (10 sets, daily range): BP systolic 121–144; BP diastolic 81–94
[2020-04-11 04:35] LABS: BASO % 0.4 % (0.0-1.0); EOS # 0.1 10^3/uL (0.0-0.5); EOS % 0.7 % (0.0-3.0); HEMATOCRIT 51.3 % (36.0-47.0); HEMOGLOBIN 17.7 g/dl (12.0-15.5); LYMPH # 3.2 10^3/uL (1.5-5.0); LYMPH % 32.1 % (24.0-44.0); MEAN CORPUSCULAR HEMOGLOBIN 31.9 pg (27.0-33.0); MEAN CORPUSCULAR HGB CONC 34.5 g/dl (32.0-36.5); MEAN CORPUSCULAR VOLUME 92.6 fl (80.0-96.0); MONO # 0.9 10^3/uL (0.0-0.8); MONO % 8.7 % (0.0-5.0); NEUTROPHILS # 5.8 10^3/uL (1.5-8.5); NEUTROPHILS % 57.8 % (36.0-66.0); PLATELET COUNT, AUTOMATED 279 10^3/uL (150-450); RED BLOOD COUNT 5.54 10^6/uL (4.00-5.40); WHITE BLOOD COUNT 10.1 10^3/uL (4.0-10.0)
[2020-04-11] MEDS ORDERED: SIMETHICONE 40MG/0.6ML DROPS 30ML PO ONE (05:00)
[2020-04-11 05:05] LABS: BLOOD UREA NITROGEN 15 MG/DL (7-18); CALCIUM LEVEL 9.2 MG/DL (8.8-10.2); CARBON DIOXIDE LEVEL 25 MEQ/L (21-32); CHLORIDE LEVEL 106 MEQ/L (98-107); CREATININE FOR GFR 0.68 MG/DL (0.55-1.30); GLOMERULAR FILTRATION RATE > 60.0 (>45); GLUCOSE, FASTING 94 MG/DL (70-100); MAGNESIUM LEVEL 2.2 MG/DL (1.8-2.4); POTASSIUM SERUM 4.1 MEQ/L (3.5-5.1); SODIUM LEVEL 138 MEQ/L (136-145)
[2020-04-11] MEDS ORDERED: ASCORBIC ACID 250 MG TAB PO SCH (09:00)
[2020-04-11] MEDS ORDERED: VITAMIN E 400 INTERNATIONAL UNITS CAP PO SCH (09:00)
[2020-04-11] MEDS ORDERED: SIMETHICONE 40MG/0.6ML DROPS 30ML PO PRN (09:00)
[2020-04-11] MEDS ORDERED: MAGNESIUM OXIDE 400 MG TAB (MAG-OX) PO SCH (09:00)
[2020-04-11 09:37] LABS: ALBUMIN 3.4 GM/DL (3.2-5.2); ALT/SGPT 76 U/L (12-78); BILIRUBIN,DIRECT 0.3 MG/DL (0.0-0.2); BILIRUBIN,TOTAL 0.7 MG/DL (0.2-1.0)
--- NOTE | 2020-04-11 10:08 | REP ---
INDICATION: RUQ pain COMPARISON: None. TECHNIQUE: Real time stephen scale ultrasound examination using curved array transducer. FINDINGS: Liver and pancreas are normal in contour, size, and echogenicity without focal hepatic or pancreatic lesions/abnormalities identified. The gallbladder is normal and without gallstones, wall thickening, or pericholecystic fluid. No biliary ductal dilatation is appreciated and the common bile duct measures 2.8 mm diameter. Right kidney is normal in reniform shape without hydronephrosis and measures 10.4 x 4.7 x 4.0 cm. Slight increase in parenchymal echotexture raise the possibility of medical renal disease. No ascites in the visualized right upper quadrant. IMPRESSION: Essentially normal examination as described above. Cannot exclude medical renal disease and correlation with urinalysis may be warranted. <Electronically signed by Tonio Ambrose > 04/11/20 [id number]
[2020-04-11] MEDS ORDERED: ATEN25TA PO (10:17)
[2020-04-11] MEDS ORDERED: DILT60TA PO (10:17)
--- NOTE | 2020-04-11 15:26 | DS.PDOC ---
Discharge Summary General Date of Admission Apr 10, 2020 at 14:02 Date of Discharge 04/11/2019 Discharge Summary PROCEDURES PERFORMED DURING STAY: [None]. ADMITTING DIAGNOSES / DISCHARGE DIAGNOSES: Palpitations - likely 2/2 atrial fibrillation / flutter RUQ discomfort / Gas Elevated Hg Lyme disease Babesiosis DVT prophylaxis COMPLICATIONS/CHIEF COMPLAINT: Palpitations HISTORY OF PRESENT ILLNESS: Patient is a 64-year-old female with a PMHx Lyme disease (s/p treatment 2016), Babesiosis (Rx 2018) and Hx of A. flutter (Dx 2016; Follows w/ Dr. Galarza), who presented to the emergency room with complaints of palpitations. Patient reported that she woke up this morning and felt palpitations used her pulse oximeter and found that her heart rate was in the 130s. Patient denies any chest pain, did report shortness of breath with exertion, denied any cough. Of note, patient has recently had an admission to the hospital 03/30 and was discharged on 04/03. During the hospital stay, patient was found to be in atrial fibrillation and she was cardioverted by cardiology, Dr. Galarza. Patient was referred to [place] [facility] for ablation. Patient was admitted to the hospitalist service for further evaluation and treatment. Case was discussed with her helicopter pilot, Dr. Galarza. HOSPITAL COURSE: Palpitations - likely 2/2 atrial fibrillation - Presented to ER with complaints of palpitation; found to have atrial fibrillation with RVR with a rate in the 130s - Initially received a dose of diltiazem IV, followed by amiodarone IV, she was then cardioverted; which had reverted her back to a sinus rhythm, however shortly thereafter returned back into atrial fibrillation, she was given another infusion of amiodarone - Patient currently remains asymptomatic without any chest pain; she still remains in A flutter with a rate of 140s - TSH within normal range - Troponin trend x3 negative - Dose of diltiazem was increased to 60 QID and atenolol was increased to 25 QHS - c/w full anticoagulation with Xarelto - Discussed case with her Manager Logistic; Dr. Galarza - advised to contact metal and plastic heater in [place], Dr. Harris - Patient has been accepted for transfer to [facility] under the care of Dr. Phan metal and plastic heater RUQ discomfort / Gas - Liver function appears to be relatively unchanged - Liver US 04/11: Essentially normal examination as described above. Cannot exclude medical renal disease and correlation with urinalysis may be warranted. - Will have outpatient follow up with PCP Elevated Hg - Possible GERBER - Appears to be at baseline - Erythropoietin pending Lyme disease - s/p treatment 2016 Babesiosis - s/p treatment 2018 DVT prophylaxis - Will c/w Xarelto DISCHARGE MEDICATIONS: Please see below. ALLERGIES: Please see below. PHYSICAL EXAMINATION ON DISCHARGE: VITAL SIGNS: Please see below. Vitals (See below) General: Lying in bed, appears comfortable, AAOx3 HEENT: NC, AT CVS: IrIr, +S1S2 Lungs: Fair air entry b/l, no appreciable wheezing, rhonchi or rales Abdomen: Soft, ND, NT Extremities: No edema, - Calf tenderness LABORATORY DATA: Please see below. IMAGING: CXR 04/10: No acute cardiopulmonary process appreciated. ACTIVITY: [As tolerated]. DISCHARGE PLAN: Follow-up with metal and plastic heater at [facility] upon transfer Remain compliant with treatment plan and medications Return to the ER if you experience any problems DISPOSITION: Transfer to [facility] DISCHARGE CONDITION: [Stable]. TIME SPENT ON DISCHARGE: 35 minutes. Vital Signs/I&Os Vital Signs Date Time Temp Pulse Resp B/P (MAP) Pulse Ox O2 Delivery O2 Flow Rate FiO2 04/11/20 12:00 98.2 139 22 144/89 (107) 97 Room Air 04/10/20 12:14 2.0 I&O- Last 24 Hours up to 6 AM 04/11/20 06:00 Intake Total 1220 ml Output Total 2200 ml Balance -980 ml Laboratory Data Labs 24H Laboratory Tests 2 04/10/20 18:10: Total Creatine Kinase 59, Creatine Kinase MB 1.1, Creatine Kinase MB Relative Index 1.86, Troponin I < 0.02 04/11/20 04:08: Immature Granulocyte % (Auto) 0.3, Neutrophils (%) (Auto) 57.8, Lymphocytes (%) (Auto) 32.1, Monocytes (%) (Auto) 8.7H, Eosinophils (%) (Auto) 0.7, Basophils (%) (Auto) 0.4, Neutrophils # (Auto) 5.8, Lymphocytes # (Auto) 3.2, Monocytes # (Auto) 0.9H, Eosinophils # (Auto) 0.1, Basophils # (Auto) 0.0, Nucleated Red Blood Cells % (auto) 0.0, Anion Gap 7L, Glomerular Filtration Rate > 60.0, Calcium Level 9.2, Magnesium Level 2.2, Total Bilirubin 0.7, Direct Bilirubin 0.3H, Aspartate Amino Transf (AST/SGOT) 49H, Alanine Aminotransferase (ALT/SGPT) 76, Alkaline Phosphatase 104, Total Protein 6.0L, Albumin 3.4, Albumin/Globulin Ratio 1.3 CBC/BMP Laboratory Tests 04/11/20 04:08 Discharge Medications Scheduled Ascorbic Acid (Vitamin C) 250 Mg Tablet, 250 MG PO DAILY, (Reported) TAKES AT LUNCHTIME Atenolol (Atenolol) 25 Mg Tablet, 25 MG PO QHS Diltiazem Hcl (Diltiazem HCl) 60 Mg Tablet, 60 MG PO Q6H Glutamine (l-Glutamine) 500 Mg Tablet, 500 MG PO DAILY, (Reported) TAKES AT LUNCHTIME Magnesium Oxide (Magnesium Oxide) 400 Mg Tablet, 400 MG PO DAILY, (Reported) TAKES AT LUNCHTIME Rivaroxaban (Xarelto) 15 Mg Tablet, 15 MG PO QPM, (Reported) AFTER SUPPER Vitamin B Complex (Vitamin B Complex) 1 Each Tablet, 1 TAB PO DAILY, (Reported) TAKES AT LUNCHTIME Vitamin E (Dl,Tocopheryl Acet) (Vitamin E) 400 Unit Capsule, 400 UNIT PO DAILY, (Reported) TAKES AT LUNCHTIME Scheduled PRN Dicyclomine HCl (Dicyclomine HCl) 10 Mg Capsule, 10 MG PO TID PRN for I.B.S., (R eported) Allergies Coded Allergies: Sulfa (Sulfonamide Antibiotics) (Verified Allergy, Mild, rash, 03/30/20) YULIANA BUCKNER MD Apr 11, 2020 15:26
[2020-04-11] MEDS ORDERED: atenoloL 25 MG TAB PO SCH ×2 (21:00)
== END 2020-04-11 12:30 | disposition short-term general hospital (02) | DRG 310 ==
LOC: M ED 08:18 → M ED INP 14:02 → M PCU 17:00
PROVIDERS: ADMIT Internal Medicine; ATTEND Internal Medicine
DX: I48.91 Unspecified atrial fibrillation (principal); I48.92 Unspecified atrial flutter; Z79.899 Other long term (current) drug therapy

== ENCOUNTER 2020-04-14 20:06 | Emergency (ER) | payer MEDICARE, OTHER ==
[~2020-04-14] VITALS: Ht 160 cm; Wt 61.4 kg
[~2020-04-14 20:06] MED LIST changes: +CARD40TA PO; +DICY10CA13 PO; +DILT60TA PO
[2020-04-14 20:42] LABS: BASO % 0.3 % (0.0-1.0); EOS # 0.1 10^3/uL (0.0-0.5); EOS % 0.9 % (0.0-3.0); LYMPH # 1.9 10^3/uL (1.5-5.0); LYMPH % 20.4 % (24.0-44.0); MEAN CORPUSCULAR HEMOGLOBIN 31.4 pg (27.0-33.0); MEAN CORPUSCULAR HGB CONC 34.7 g/dl (32.0-36.5); MEAN CORPUSCULAR VOLUME 90.6 fl (80.0-96.0); MONO # 0.9 10^3/uL (0.0-0.8); MONO % 9.3 % (0.0-5.0); NEUTROPHILS # 6.4 10^3/uL (1.5-8.5); NEUTROPHILS % 68.7 % (36.0-66.0); PLATELET COUNT, AUTOMATED 236 10^3/uL (150-450); RED BLOOD COUNT 5.41 10^6/uL (4.00-5.40); WHITE BLOOD COUNT 9.3 10^3/uL (4.0-10.0)
[2020-04-14] MEDS ORDERED: XARE20TA PO (20:44)
[2020-04-14] MEDS ORDERED: AMLO1TAB24 PO (20:44)
--- NOTE | 2020-04-14 21:25 | REPVR ---
PROCEDURE INFORMATION: Exam: XR Chest, 1 View Exam date and time: 04/14/2020 8:27 PM Age: 64 years old Clinical indication: Chest pain; Type not specified TECHNIQUE: Imaging protocol: XR of the chest Views: 1 view. COMPARISON: CR Chest, 1 view 04/10/2020 1:23 PM FINDINGS: Lungs: Well inflated lungs with flattened diaphragmatic contours consistent with COPD. No acute infiltrates. Pleural space: Unremarkable. No pleural effusion. No pneumothorax. Heart/Mediastinum: Cardiomegaly. Bones/joints: Unremarkable. IMPRESSION: 1. COPD. 2. Cardiomegaly. 3. No acute findings. Electronically signed by: Jordan Overton On 04/14/2020 21:25:33 PM
[2020-04-14] MEDS ORDERED: atenoloL 50 MG TAB PO STA (22:17)
[2020-04-14] MEDS ORDERED: FLECAINIDE 50MG TABLET PO STA (22:17)
[2020-04-14] MEDS ORDERED: ATEN50TA2 PO (22:29)
[2020-04-14] MEDS ORDERED: FLEC25TA PO (22:29)
[2020-04-14 22:30] VITALS: BP 156/85
[2020-04-14 22:35] VITALS: BP 155/85
--- NOTE | 2020-04-15 21:33 | ECGEPIP ---
[facility] - ED Test Date: 2020-04-14 Pat Name: MERCY RIVERA Department: Room: - Gender: Female Physician Aide: ANDERSON : 1955 Requested By: HANNAH BALBUENA Order Number: [id number] Reading MD: Dima Longoria Measurements Intervals [place] Rate: 82 P: 51 RI: 149 QRS: 57 QRSD: 92 T: 40 QT: 396 QTc: 464 Interpretive Statements SINUS RHYTHM WITH SINUS ARRHYTHMIA RHYTHM/RATE CHANGE COMPARED TO PRIOR ON SAME DATE Electronically Signed on 04-15-2020 21:33:40 EST by Dima Longoria
--- NOTE | 2020-04-15 21:33 | ECGEPIP ---
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
== END 2020-04-14 22:42 | disposition home or self-care (01) ==
LOC: M ED 20:06
DX: I48.91 Unspecified atrial fibrillation (principal); Z98.890 Other specified postprocedural states; Z88.2 Allergy status to sulfonamides; Z79.899 Other long term (current) drug therapy; Z79.01 Long term (current) use of anticoagulants

== ENCOUNTER 2020-05-22 15:30 | Emergency (ER) | payer MEDICARE, OTHER ==
[~2020-05-22] VITALS: Ht 160 cm; Wt 59.1 kg
[~2020-05-22 15:30] MED LIST changes: +AMLO1TAB24 PO; +ATEN50TA2 PO; +FLEC25TA PO
[2020-05-22] MEDS ORDERED: BISO5TAB14 (15:39)
[2020-05-22] MEDS ORDERED: VALS1TAB66 (15:39)
--- OUTSIDE RECORDS SUMMARY | 2020-05-22 16:00 | CCD | Continuity of Care Document ---
Author Organization Unknown Address Unknown Phone Unavailable Care Team Providers Care Swimming Teacher Name Role Phone Mary Morrison RN PNP AUTM [phone] Drea Garcia DO AUTM Beto Harris MD AUTM [phone] Problems Active Problems Provider Date Palpitations Hernan Jasso MD Onset: 10/18/2016 Atrial flutter Hernan Jasso MD Onset: 10/18/2016 Electrocardiogram abnormal Hernan Jasso MD Onset: 2016 Mitral valve disorder Hernan Jasso MD Onset: 10/18/2016 Elevated blood-pressure reading without diagnosis of h ypertension Hernan Jasso MD Onset: 10/18/2016 Anxiety state Hernan Jasso MD Onset: 10/18/2016 Chronic pulmonary heart disease Hernan Jasso MD Onset: 0 12/31/2016 Heart murmur Hernan Jasso MD Onset: 12/31/2016 Benign hypertensive heart disease without congestive h eart failure Hernan Jasso MD Onset: 12/31/2016 Dietary management surveillance KAYLYN Sifuentes Onset: 08/29/2017 Premature beats KAYLYN Sifuentes Onset: 10/06/2018 Social History Type Date Description Comments Sex Unknown ETOH Use Does not consume alcohol Tobacco Use Start: Unknown End: Unknown Patient is a former smoker started at age 13, stopped in 1987, smoked about 1/2/ppd Smoking Status Reviewed: 12/03/19 Patient is a former smoker [facility] art[facility] at age 13, stopped in 1987, smoked about 1/2/ppd Exercise Type/Frequency Walks daily 40 Minut es a day Exercise Type/Frequency Does housework twice a w [place] Exercise Type/Frequency Does yardwork twice a we [place] Exercise Type/Frequency Does gardening daily Exercise Type/Frequency Does yardwork daily [place] steve Exercise Limitations Other Lyme Diseas e Allergies, Adverse Reactions, Alerts Active Allergies Reaction Severity Comments Date Sulfa rash 10/18/2016 Tetanus Toxoid Vaccine, Inactivated injec tion site irritation 10/18/2016 Antazoline throat swells 10/18/2016 Medications Active Medications SIG Qnty Indications Ordering Provide r Date Xarelto 20mg Tablets 1 by mouth every day with evening meal I48.3 Jacques Galarza MD 1 Acidophilus Probiotic 10mg Capsule s once daily Unknown 04/03/2018 Angelita 500mg Capsules once da orin Unknown 04/03/2018 Multivitamin Adult Tablets 2 by mouth every day Unknown 10/17/2016 History Medications Diltiazem HCL 30mg Tablets 1 tab by mouth four times a day 120tabs I48.3 Jacques Galarza MD 04/04/2020 - 04/14/2020 I10 Xarelto 15mg Tablets take one tablet by mouth every day with evening meal 90tabs I48.3 Jacques sharpe MD 04/02/2020 - 04/14/2020 Diltiazem HCL ER Beads 300mg Caps ER 24HR 1 by mouth every day 90caps I48.3 Jacques Galarza MD 2019 - 04/04/2020 I10 Immunizations Description No Information Available Vital Signs Date Vital Result Comment 12/03/2019 2:31pm Weight 137.00 lb Home Weight 138lb Height 63 inches 5'3" BMI (Body Mass Index) 24.3 kg/m2 Heart Rate 67 /min BP Systolic Sitting 130 mmHg BP Diastolic Sitting 78 mmHg 04/29/2019 12:57pm Weight 134.00 lb Height 63 inches 5'3" BMI (Body Mass Index) 23.7 kg/m2 Heart Rate 71 /min BP Systolic Sitting 120 mmHg adult cuff, Ra BP Diastolic Sitting 68 mmHg adult cuff, Ra Results Test Acquired Date Facility Test Result H/L Range Note CBC without Differential 04/11/2020 [facility] ([facility] - White Blood Count 10.1 4.3-10.9 Red Blood Count 5.54 4.70-6.20 Platelets 279 130-400 Hemoglobin 17.7 High 13.0-17.0 Hematocrit 51.3 High 39.0-50.0 Liver Panel 04/11/2020 [facility] ([facility])- - Alkaline Phosphatase 104 Ast - Sgot 49 Alt - SGPT 76 Bilirubin Total Mass/Vol 0.7 Bilirubin Direct Mass/Vol 0.3 Protein Total 6.0 Albumin Serum/Plasma 3.4 Cholesterol Total Mass/Vol -- BMP 04/11/2020 [facility] ([facility])- - Calcium Ser/Plasma Mass/Vol 9.2 Sodium 138 Carbon Dioxide Ser/Plasm 25 Chloride Serum/Plasma 106 Potassium 4.1 Glucose 94 70-100 Blood Urea Nitrogen 15 5-21 Creatinine 0.68 0.6-1.5 G F R 60.0 Laboratory test finding 04/11/2020 [facility] ([facility])- - Magnesium Level 2.2 CBC without Differential 04/03/2020 [facility] ([facility])- - White Blood Count 7.7 4.3-10.9 Red Blood Count 5.34 4.70-6.20 Platelets 268 130-400 Hemoglobin 17.1 High 13.0-17.0 Hematocrit 50.9 High 39.0-50.0 [facility] 04/03/2020 [facility] (315)- - Albumin Serum/Plasma 3.3 Alt - SGPT 61 Calcium Ser/Plasma Mass/Vol 8.6 Carbon Dioxide Ser/Plasm 27 Chloride Serum/Plasma 104 Alkaline Phosphatase 97 Potassium 4.4 Protein Total 5.8 Sodium 139 Ast - Sgot 30 BUN - Urea Nitrogen 26 Glucose 86 70-100 Creatinine For GFR 0.81 Laboratory test finding 04/03/2020 [facility] ([facility])- - Magnesium Level 2. CBC without Differential 10/18/2019 [facility] - not inter faced (315)- - White Blood Count 5.5 4.0-10.0 Red Blood Count 4.72 4.00-5.40 Platelets 245 150-450 Hemoglobin 14.6 Hematocrit 44.0 [facility] 10/18/2019 [facility] - not interfaced (315)- - Albumin Serum/Plasma 3.7 Alt - SGPT 66 Calcium Ser/Plasma Mass/Vol 8.9 Carbon Dioxide Ser/Plasm 27 Chloride Serum/Plasma 109 Alkaline Phosphatase 81 Potassium 4.4 Protein Total 6.4 Sodium 143 Ast - Sgot 33 BUN - Urea Nitrogen 14 Glucose 90 70-100 Creatinine For GFR 0.76 Procedures Date Code Description Status 12/03/2019 13939 ECG 12-Lead Completed Medical Devices Description No Information Available Encounters Type Date Location Provider Dx Diagnosis Office Visit 12/03/2019 2:30p Main Office KAYLYN Sifuentes I11.9 Hypertensive heart disease without heart failure I49.3 Ventricular premature depola rization I48.3 Typical atrial flutter R94.31 Abnormal electrocardiogram [ ECG] [EKG] Z71.3 Dietary counseling and surve illance Assessments Date Code Description Provider 12/03/2019 I11.9 Hypertensive heart disease witho ut heart failure KAYLYN Sifuentes 12/03/2019 I49.3 Ventricular premature depolariza tion KAYLYN Sifuentes 12/03/2019 I48.3 Typical atrial flutter KAYLYN Sifuentes 12/03/2019 R94.31 Abnormal electrocardiogram [ECG] [EKG] KAYLYN Sifuentes 12/03/2019 Z71.3 Dietary counseling and surveilla nce KAYLYN Sifuentes Plan of Treatment Future Appointment(s):* 04/19/2020 12:00 pm - Jacques Galarza MD at Main Office 12/03/2019 - KAYLYN Sifuentes* I11.9 Hypertensive heart disease without heart failure* Recommendations:* No medication changes were made today. * I49.3 Ventricular premature depolarization* Recommendations:* No further workup required at this time. * I48.3 Typical atrial flutter* Recommendations:* Please call the office with any sustained tachycardia (heart rate above 110 bpm at rest) or palpitations. * R94.31 Abnormal electrocardiogram [ECG] [EKG]* Recommendations:* No significant change. No further workup required. * Z71.3 Dietary counseling and surveillance* Recommendations:* Recommend adopting a more whole foods, plant-based diet in addition to moderate exercise a minimum of 30 minutes 6 days a week. In order to optimize cardiovascular health please be conscious of processed foods, alcohol (no more than two dr inks a day for men and one drink a day for women), salt (<2000 mg/d), oils, saturated fat/animal products, and highly refined carbohydrates such as breads, pastas, and sweets. * All * Follow up:* Follow up in 6 months. Functional Status Functional Condition Comment Date Status Independent with all ADL's Activ e Mental Status Description No Information Available Referrals Refer to Reason for Referral Status Appt Date Beto Harris MD typical atrial flutter; spec ifically, for consideration of RF ablation of typical atrial flutter. Sent [facility] [address] [place] [address] [address] [place] [address] [phone]
--- OUTSIDE RECORDS SUMMARY | 2020-05-22 16:00 | CCD | Continuity of Care Document ---
Author Author Nela GALARZA MD Organization Unknown Address [id number] [place] [address], [place] [address] Phone [phone] Care Team Providers Care Commercial Carpet Installer Name Role Phone Mary Morrison RN PNP AUTM [phone] Drea Garcia DO AUTM Beto Harris MD AUTM [phone] Arie Moon MD AUTM [phone] Lara Lopez MD AUTM [phone] Problems Active Problems Provider Date Palpitations Hernan [...] 08/29/2017 Premature beats KAYLYN Sifuentes Onset: 10/06/2018 Essential hypertension Jacques Galarza MD Onset: Paroxysmal atrial fibrillation Jacques Galarza MD Onset: 0 04/19/2020 Social History Type Date Description Comments Sex Unknown ETOH Use Does not consume alcohol Tobacco Use Start: Unknown End: Unknown Patient is a former smoker started at age 13, stopped in 1987, smoked about 1/2/ppd Smoking Status Reviewed: 04/19/20 Patient is a former smoker [facility] at age 13, stopped in 1987, smoked about 1/2/ppd Exercise Type/Frequency Walks daily 40 Minut es a day Exercise Type/Frequency Does housework twice a w [place] Exercise Type/Frequency Does yardwork twice a we ek Exercise Type/Frequency Does gardening daily Exercise Type/Frequency Does yardwork daily [place] cris power Exercise Limitations Other Lyme Diseas e Allergies, Adverse Reactions, Alerts Active Allergies Reaction Severity Comments Date Sulfa rash 10/18/2016 Tetanus Toxoid Vaccine, Inactivated injec tion site irritation 10/18/2016 Antazoline throat swells 10/18/2016 Medications Active Medications SIG Qnty Indications Ordering Provide r Date Atenolol 25mg Tablets 1 by mouth twice a day 180tabs I48.0 Jacques Galarza MD 04/19/2020 I10 Flecainide Acetate 50mg Tablets take two tablets by mouth once daily as needed for atrial fibrillation 30tabs I48.0 Jacques Galarza MD 04/19/2020 Valsartan 80mg Tablets 1 by mouth daily at bedtime 90tabs I10 Jacques Galarza MD 04/19/2020 Xarelto 20mg Tablets 1 by mouth every day with evening meal I48.3 Jacques Galarza MD Acidophilus Probiotic 10mg Capsule s once daily Unknown 04/03/2018 Angelita 500mg Capsules once da orin Unknown 04/03/2018 Multivitamin Adult Tablets 2 by mouth every day Unknown 10/17/2016 History Medications Atenolol 50mg Tablets 1 by mouth every day I48.0 Unknown 04/14/2020 - 03/2021 I10 Flecainide Acetate 50mg Tablets 1 by mouth twice a day I48.0 Unknown 04/14/2020 - 03/2021 Diltiazem HCL 30mg Tablets 1 tab by [...] Available Vital Signs Date Vital Result Comment 04/19/2020 12:16pm Weight 130.00 lb Height 63 inches 5'3" BMI (Body Mass Index) 23.0 kg/m2 Heart Rate 51 /min BP Systolic Sitting 164 mmHg CBP, adult cuff/LA BP Diastolic Sitting 86 mmHg CBP, adult cuff/LA 12/03/2019 2:31pm Weight 137.00 lb Home Weight 138lb Height 63 inches 5'3" BMI (Body Mass Index) 24.3 kg/m2 Heart Rate 67 /min BP Systolic Sitting 130 mmHg BP Diastolic Sitting 78 mmHg Results Test Acquired Date Facility Test Result [...] 17.1 High 13.0-17.0 Hematocrit 50.9 High 39.0-50.0 CMP 04/03/2020 [facility])- - Albumin Serum/Plasma 3.3 Alt - SGPT 61 Calcium Ser/Plasma Mass/Vol 8.6 Carbon Dioxide Ser/Plasm 27 Chloride Serum/Plasma 104 Alkaline Phosphatase 97 Potassium 4.4 Protein Total 5.8 Sodium 139 Ast - Sgot 30 BUN - Urea Nitrogen 26 Glucose 86 70-100 Creatinine For GFR 0.81 Laboratory test finding 04/03/2020 [facility] ([facility])- - Magnesium Level 2. Procedures Date Code Description Status 04/19/2020 44943 Arterial Pressure Wa veform Analysis For Assessment Of Central Art Completed 04/19/2020 18074 ECG 12-Lead Completed 12/03/2019 92919 ECG 12-Lead Completed Medical Devices Description No Information Available Encounters Type Date Location Provider Dx Diagnosis Office Visit 04/19/2020 12:00p Main Office Jacques Galarza MD I48.3 Typical atrial flutter I48.0 Paroxysmal atrial fibrillati on I10 Essential (primary) hyperten fernando R94.31 Abnormal electrocardiogram [ ECG] [EKG] Office Visit 12/03/2019 2:30p Main Office KAYLYN Sifuentes I11.9 Hypertensive heart disease without heart failure I49.3 Ventricular premature depola rization I48.3 Typical atrial flutter R94.31 Abnormal electrocardiogram [ ECG] [EKG] Z71.3 Dietary counseling and surve illance Assessments Date Code Description Provider 04/19/2020 I48.3 Typical atrial flutter Jacques Galarza MD 04/19/2020 I48.0 Paroxysmal atrial fibrillation D bobby Galarza MD 04/19/2020 I10 Essential (primary) hypertension Jacques Galarza MD 04/19/2020 R94.31 Abnormal electrocardiogram [ECG] [EKG] Jacques Galarza MD 12/03/2019 I11.9 Hypertensive heart disease witho ut heart failure KAYLYN Sifuentes 12/03/2019 I49.3 Ventricular premature depolariza tion KAYLYN Sifuentes 12/03/2019 I48.3 Typical atrial flutter KAYLYN Sifuentes 12/03/2019 R94.31 Abnormal electrocardiogram [ECG] [EKG] KAYLYN Sifuentes 12/03/2019 Z71.3 Dietary counseling and surveilla nce KAYLYN Sifuentes Plan of Treatment 04/19/2020 - Jacques Galarza MD* I48.3 Typical atrial flutter * I48.0 Paroxysmal atrial fibrillation* New Medication:* Atenolol 25 mg - 1 by mouth twice a day * Flecainide Acetate 50 mg - take two tablets by mouth once daily as needed for atrial fibrillation * Referral:* No Doctor Selected * I10 Essential (primary) hypertension* New Medication:* Atenolol 25 mg - 1 by mouth twice a day * Valsartan 80 mg - 1 by mouth daily at bedtime * R94.31 Abnormal electrocardiogram [ECG] [EKG] * All * Follow up:* Clinic visit in [address] Galarza. Functional Status Functional Condition Comment Date Status Independent with all ADL's Activ e Mental Status Description No Information Available Referrals Refer to Reason for Referral Status Appt Date 64 yo woman with Paroxysmal Atrial Fibrillation; please evaluate & manage, consider pulmonary vein isolation ablation. Thanks!! Created Beto Harris MD typical atrial flutter; spec ifically, for consideration of RF ablation of typical atrial flutter. Sent [facility] [address] [place] [address] [address] [place] [address] [phone]
--- OUTSIDE RECORDS SUMMARY | 2020-05-22 16:00 | CCD | Continuity of Care Document ---
Author Author Nela GARCIA Organization Unknown Address [address] [place] [address] Phone [phone] Care Team Providers Care Enrober Tender Name Role Phone Drea Garcia D.O. AUTM Lara Lopez M.D. AUTM [phone] Problems Active Problems Provider Date Paroxysmal atrial fibrillation KAYLYN Green Onset: 0 10/31/2017 Heart murmur KAYLYN Green Onset: 10/31/2017 Mixed hyperlipidemia KAYLYN Green Onset: 11/02/2017 Social History Type Date Description Comments Sex Unknown Tobacco Use Start: Unknown End: Quit ETOH Use Denies alcohol use Tobacco Use Start: Unknown End: Unknown Patient is a former smoker Recreational Drug Use Denies Drug Use Exercise Type/Frequency Walks daily Exercise Type/Frequency Yoga Sun Exposure Does not use sunscreen Seat Belt/Car Seat Always uses seat belt Allergies, Adverse Reactions, Alerts Active Allergies Reaction Severity Comments Date Sulfa Antibiotics Contact dermatitis, Urticaria 09/11/2017 Tetanus arm swelling 09/11/2017 Mikael Inhibitors weakness 10/31/2017 Medications Active Medications SIG Qnty Indications Ordering Provide r Date Valsartan 80mg Tablets 1 by mouth every day Unknown Flecainide Acetate 50mg Tablets 2 tab by mouth as needed Unknown Atenolol 25mg Tablets 1 by mouth twice a day Unknown Vitamin E 400Unit Capsules take one capsule by mouth once a day Unknown Lauricidin Ointment Unknown Antigrative Therapueticscortisol Manger 1 tab by mouth daily Unknown Lavela WS 1265 80mg Capsules 1 cap by mouth bid Unknown Probiotic Capsules 1 caps in the morning Unknown Berberine Complex [phone] Capsules Unknown Chlorella Capsules Unknown Vitamin D-3 5000Unit Tablets to be taken by mouth once a day Unknown C Complex 1000mg Tablets ER Unknown Zinc 50mg Tablets 1 by laquita th every day Unknown L-Glutamine 500mg Capsules Unknown Magnesium Citrate 200mg Tablets Unknown Astragalus Root Powder 20 drops daily Unknown Xarelto 20mg Tablets Take One Tablet By Mouth Every Day Unknown History Medications Mirtazapine 15mg Tablets take 1 tablet daily at bedtime 30tabs Yobani ShaverOSaray 10/2020 - 04/14/2020 Dicyclomine HCL 10mg Capsules take one tablet every 8 hours by mouth as needed for diarrhea. 90caps Yobani LariosO. 04/06/2020 - 04/07/2020 Immunizations Description No Information Available Vital Signs Date Vital Result Comment 04/21/2020 11:05am BP Systolic 148 mmHg BP Diastolic 84 mmHg Height 63 inches 5'3" Weight 130.38 lb BMI (Body Mass Index) 23.1 kg/m2 Heart Rate 57 /min Respiratory Rate 18 /min Body Temperature 97.8 F O2 % BldC Oximetry 98 % [place] Body Weight 115 lb 04/07/2020 10:57am BP Systolic 124 mmHg BP Diastolic 74 mmHg Height 63 inches 5'3" Weight 132.25 lb BMI (Body Mass Index) 23.4 kg/m2 Heart Rate 63 /min Respiratory Rate 18 /min Body Temperature 98.1 F O2 % BldC Oximetry 98 % [place] Body Weight 115 lb Results Test Acquired Date Facility Test Result H/L Range Note Laboratory test finding 04/14/2020 [facility] Outpatient T vernelling (Registration) [address] [place], [place] [id number] [phone] iSTAT Troponin 0.38 NG/ML High 0.00-0.08 Istat Chem8+ Panel 04/14/2020 [facility] Outpatient Testi ng (Registration) [address] [place] [address] [phone] iSTAT HCT 48.0 % Normal 38.0-51.0 iSTAT Glucose 144 mg/dL High 70-105 iSTAT Sodium 138 mEq/L Normal 136-145 iSTAT Potassium 3.8 mEq/L Normal 3.5-5.1 iSTAT CA++ 4.4 mg/dL Low 4.5-5.3 iSTAT Chloride 104 mEq/L Normal 98-109 iSTAT Co2 25.0 MM/L Normal 23.0-27.0 iSTAT BUN 23 mg/dL Normal 8-26 iSTAT Creatinine 0.7 mg/dL Normal 0.6-1.3 CBC With Differential 04/14/2020 [facility] Outpatient Patti ting (Registration) [address] [place] [address] [phone] White Blood Count 9.3 10 Normal 4.0-10.0 Red Blood Count 5.41 10 High 4.00-5.40 Hemoglobin 17.0 g/dL High 12.0-15.5 Hematocrit 49.0 % High 36.0-47.0 Mean Corpuscular Volume 90.6 fl Normal 80.0-96.0 Mean Corpuscular Hemoglobin 31.4 pg Normal 27.0-33.0 Mean Corpuscular HGB Conc 34.7 g/dL Normal 32.0-36.5 Red Cell Distribution Width 11.8 % Normal 11.5-14.5 Platelet Count, Automated 236 10 Normal 150-450 Neutrophils % 68.7 % High 36.0-66.0 Lymph % 20.4 % Low 24.0-44.0 [place] % 9.3 % High 0.0-5.0 Eos % 0.9 % Normal 0.0-3.0 Baso % 0.3 % Normal 0.0-1.0 Immature Granulocyte % 0.4 % Normal 0-3.0 Nucleated Red Blood Cell % 0.0 % Normal 0-0 Neutrophils # 6.4 10 Normal 1.5-8.5 Lymph # 1.9 10 Normal 1.5-5.0 [place] # 0.9 10 High 0.0-0.8 Eos # 0.1 10 Normal 0.0-0.5 Baso # 0.0 10 Normal 0.0-0.2 Laboratory test finding 04/10/2020 [facility] Outpatient T esting (Registration) [address] [place] [address] [phone] Thyroid Stimulating Hormone 2.030 uIU/ML Normal 0. 358-3.740 Complete Blood Count 04/10/2020 [facility] Outpatient Test ing (Registration) [address] [place] [address] [phone] White Blood Count 5.9 10 Normal 4.0-10.0 Red Blood Count 5.60 10 High 4.00-5.40 Hemoglobin 17.4 g/dL High 12.0-15.5 Hematocrit 53.3 % High 36.0-47.0 Mean Corpuscular Volume 95.2 fl Normal 80.0-96.0 Mean Corpuscular Hemoglobin 31.1 pg Normal 27.0-33.0 Mean Corpuscular HGB Conc 32.6 g/dL Normal 32.0-36.5 Red Cell Distribution Width 12.2 % Normal 11.5-14.5 Platelet Count, Automated 263 10 Normal 150-450 Nucleated Red Blood Cell % 0.0 % Normal 0-0 Istat Chem8+ Panel 04/10/2020 [facility] Outpatient Testi ng (Registration) [address] [place] [address] [phone] iSTAT HCT 50.0 % Normal 38.0-51.0 iSTAT Glucose 132 mg/dL High 70-105 iSTAT Sodium 140 mEq/L Normal 136-145 iSTAT Potassium 4.1 mEq/L Normal 3.5-5.1 iSTAT CA++ 4.7 mg/dL Normal 4.5-5.3 iSTAT Chloride 101 mEq/L Normal 98-109 iSTAT Co2 29.0 MM/L High 23.0-27.0 iSTAT BUN 20 mg/dL Normal 8-26 iSTAT Creatinine 0.8 mg/dL Normal 0.6-1.3 Laboratory test finding 04/10/2020 [facility] Outpatient T esting (Registration) [address] [place] [address] [phone] iSTAT Troponin 0.00 NG/ML Normal 0.00-0.08 Istat PT/Inr 04/10/2020 [facility] Outpatient Testi ng (Registration) [address] [place] [address] [phone] iSTAT Protime Seconds 15.8 seconds High 12.1-14. 4 iSTAT Inr 1.3 Normal Cardiac Marker Panel 04/10/2020 [facility] Outpatient Test ing (Registration) [address] [place] [address] [phone] CPK Creatine Phosphokinase 47 U/L Normal 26-19 2 CK-MB Value Mass 1.2 NG/ML Normal <3.6 MB/CK Relative Index 2.55 Normal < Or =4 1 Troponin I < 0.02 NG/ML Normal < 0.10 2 Comprehensive Metabolic Profil 04/10/2020 [facility] Outpa tient Testing (Registration) [address] [place] [address] [phone] Glucose, Fasting 84 mg/dL Normal 70-100 Blood Urea Nitrogen 17 mg/dL Normal 7-18 Creatinine For GFR 0.69 mg/dL Normal 0.55-1.30 Glomerular Filtration Rate > 60.0 Normal >45 3 Sodium Level 141 mEq/L Normal 136-145 Potassium Serum 4.0 mEq/L Normal 3.5-5.1 Chloride Level 107 mEq/L Normal 98-107 Carbon Dioxide Level 27 mEq/L Normal 21-32 Anion Gap 7 mEq/L Low 8-16 Calcium Level 8.6 mg/dL Low 8.8-10.2 Ast/Sgot 40 U/L High 7-37 Alt/SGPT 69 U/L Normal 12-78 Alkaline Phosphatase 95 U/L Normal 45-117 Bilirubin,Total 0.5 mg/dL Normal 0.2-1.0 Total Protein 5.7 GM/DL Low 6.4-8.2 Albumin 3.4 GM/DL Normal 3.2-5.2 Albumin/Globulin Ratio 1.5 Normal 1.2-2.2 Complete Blood Count 04/10/2020 [facility] Outpatient Test ing (Registration) [address] [place] [address] [phone] White Blood Count 5.9 10 Normal 4.0-10.0 Red Blood Count 5.60 10 High 4.00-5.40 Hemoglobin 17.4 g/dL High 12.0-15.5 Hematocrit 53.3 % High 36.0-47.0 Mean Corpuscular Volume 95.2 fl Normal 80.0-96.0 Mean Corpuscular Hemoglobin 31.1 pg Normal 27.0-33.0 Mean Corpuscular HGB Conc 32.6 g/dL Normal 32.0-36.5 Red Cell Distribution Width 12.2 % Normal 11.5-14.5 Platelet Count, Automated 263 10 Normal 150-450 Nucleated Red Blood Cell % 0.0 % Normal 0-0 Order 04/07/2020 In House Orders EKG see result in chart CBC With Differential 03/30/2020 [facility] Outpatient Patti ting (Registration) [address] [place] [address] [phone] White Blood Count 10.1 10 High 4.0-10.0 Red Blood Count 5.01 10 Normal 4.00-5.40 Hemoglobin 16.3 g/dL High 12.0-15.5 Hematocrit 48.1 % High 36.0-47.0 Mean Corpuscular Volume 96.0 fl Normal 80.0-96.0 Mean Corpuscular Hemoglobin 32.5 pg Normal 27.0-33.0 Mean Corpuscular HGB Conc 33.9 g/dL Normal 32.0-36.5 Red Cell Distribution Width 12.6 % Normal 11.5-14.5 Platelet Count, Automated 259 10 Normal 150-450 Neutrophils % 74.0 % High 36.0-66.0 Lymph % 16.2 % Low 24.0-44.0 [place] % 9.0 % High 0.0-5.0 Eos % 0.1 % Normal 0.0-3.0 Baso % 0.4 % Normal 0.0-1.0 Immature Granulocyte % 0.3 % Normal 0-3.0 Nucleated Red Blood Cell % 0.0 % Normal 0-0 Neutrophils # 7.5 10 Normal 1.5-8.5 Lymph # 1.6 10 Normal 1.5-5.0 [place] # 0.9 10 High 0.0-0.8 Eos # 0.0 10 Normal 0.0-0.5 Baso # 0.0 10 Normal 0.0-0.2 Prothrombin Time/Inr 03/30/2020 [facility] Outpatient Test ing (Registration) [address], [place] [id number] [phone] Prothrombin Time 14.3 seconds High 12.5-14.3 Inr 1.09 Normal 4 Laboratory test finding 03/30/2020 [facility] Outpatient T esting (Registration) [address] [place] [address] [phone] Partial Thromboplastin Time 30.0 seconds Normal 24 .2-38.5 Cardiac Marker Panel 03/30/2020 [facility] Outpatient Test ing (Registration) [address] [place] [address] [phone] CPK Creatine Phosphokinase 82 U/L Normal 26-19 2 CK-MB Value Mass 3.0 NG/ML Normal <3.6 MB/CK Relative Index 3.66 Normal < Or =4 5 Troponin I < 0.02 NG/ML Normal < 0.10 6 Liver Profile 03/30/2020 [facility] Outpatient Testi ng (Registration) [address] [place] [address] [phone] Ast/Sgot 63 U/L High 7-37 Alt/SGPT 100 U/L High 12-78 Alkaline Phosphatase 103 U/L Normal 45-117 Bilirubin,Total 0.6 mg/dL Normal 0.2-1.0 Bilirubin,Direct 0.2 mg/dL Normal 0.0-0.2 Total Protein 6.1 GM/DL Low 6.4-8.2 Albumin 3.6 GM/DL Normal 3.2-5.2 Albumin/Globulin Ratio 1.4 Normal 1.2-2.2 Basic Metabolic Profile 03/30/2020 [facility] Outpatient T esting (Registration) [address] [place] [address] [phone] Glucose, Fasting 80 mg/dL Normal 70-100 Blood Urea Nitrogen 22 mg/dL High 7-18 Creatinine For GFR 0.84 mg/dL Normal 0.55-1.30 Glomerular Filtration Rate > 60.0 Normal >45 7 Sodium Level 141 mEq/L Normal 136-145 Potassium Serum 4.1 mEq/L Normal 3.5-5.1 Chloride Level 108 mEq/L High 98-107 Carbon Dioxide Level 29 mEq/L Normal 21-32 Anion Gap 4 mEq/L Low 8-16 Calcium Level 8.7 mg/dL Low 8.8-10.2 Laboratory test finding 03/30/2020 [facility] Outpatient T esting (Registration) [address] [place] [address] [phone] Thyroid Stimulating Hormone 2.050 uIU/ML Normal 0. 358-3.740 Free T4 1.30 ng/dL Normal 0.76-1.46 Digoxin Level 0.1 NG/ML Low 0.5-2.0 Laboratory test finding 03/30/2020 [facility] Outpatient T vernelling (Registration) [address] [place] [address] [phone] Magnesium Level 2.3 mg/dL Normal 1.8-2.4 Ethyl Alcohol (Ethanol) 0.003 % Normal 0.000-0.010 1 DIAGNOSIS CRITERIA MMB ng/ml Relative Index (RI) NON-AMI < or = 5 N/A NGUYEN ZONE > 5 < or = 4 AMI > 5 > 4 2 Troponin I Reference Interva l for Collective Health: 99th Percentile= 0.00-0.045 ng/ml Risk Stratification: <= 0.10 ng/ml Decreased Risk for Adverse Clinical Events. 0.10-1.50 ng/ml Increased Risk for Adv erse Clinical Events. Evaluation of additional criterion and/or repeat testing in 2-6 hours is suggested to rule out myocardial damage. >= 1.50 ng/ml Indicative of Myocardial Injury. 3 Units are mL/min/1.73 m2 Chronic Kidney Disease Staging per NKF: Stage I & II GFR >=60 Normal to Mildly Decreased Stage III GFR 30-59 Moderately Decreased Stage IV GFR 15-29 Severely Decreased Stage V GFR <15 Very Little GFR Left ESRD GFR <15 on SPINDLE MAKER 4 THERAPUTIC HUMAN INR VALUES INDICATIONS NORMAL RANGES PROPHYLAXIS/TREATMENT OF: VENOUS THROMBOSIS 2.0-3.0 PULMONARY EMBOLISM 2.0-3.0 PREVENTION OF SYSTEMIC EMBOLISM FROM: TISSUE HEART VALVES 2.0-3.0 ACUTE MYOCARDIAL INFARCTION 2.0-3.0 VALVULAR HEART DISEASE 2.0-3.0 ATRIAL FIBRILLATION 2.0-3.0 MECHANICAL VALVES(HIGH RISK) 2.5-3.5 RECURRENT MYOCARDIAL INFARCTION 2.5-3.5 5 DIAGNOSIS CRITERIA MMB ng/ml Relative Index (RI) NON-AMI < or = 5 N/A NGUYEN ZONE > 5 < or = 4 AMI > 5 > 4 6 Troponin I Reference Interva l for aliketa Cazoodle: 99th Percentile= 0.00-0.045 ng/ml Risk Stratification: <= 0.10 ng/ml Decreased Risk for Adverse Clinical Events. 0.10-1.50 ng/ml Increased Risk for Adv erse Clinical Events. Evaluation of additional criterion and/or repeat testing in 2-6 hours is suggested to rule out myocardial damage. >= 1.50 ng/ml Indicative of Myocardial Injury. 7 Units are mL/min/1.73 m2 Chronic Kidney Disease Staging per NKF: Stage I & II GFR >=60 Normal to Mildly Decreased Stage III GFR 30-59 Moderately Decreased Stage IV GFR 15-29 Severely Decreased Stage V GFR <15 Very Little GFR Left ESRD GFR <15 on SPINDLE MA[employer]ER Procedures Date Code Description Status 04/07/2020 31725 Electrocardiogram Complete Compl eted Medical Devices Description No Information Available Encounters Type Date Location Provider Dx Diagnosis Office Visit 04/21/2020 11:00a [facility] Drea Garcia D.O. I48.92 Unspecified atrial flutter K58.2 Mixed irritable bowel syndro me Z79.01 longterm (current) use of a nticoagulants I48.0 Paroxysmal atrial fibrillati on F41.1 Generalized anxiety disorder I10 Essential (primary) hyperten fernando Office Visit 04/07/2020 10:40a [facility] KAYLYN Fraser I48.92 Unspecified atrial flutter K58.2 Mixed irritable bowel syndro me Z79.01 longterm (current) use of a nticoagulants Assessments Date Code Description Provider 04/21/2020 I48.92 Unspecified atrial flutter Drea Garcia D.O. 04/21/2020 K58.2 Mixed irritable bowel syndrome Yobani FranklinOSaray 04/21/2020 Z79.01 longterm (current) use of antic oagulants Drea Vera D.O. 04/21/2020 I48.0 Paroxysmal atrial fibrillation Roz Garcia D.O. 04/21/2020 F41.1 Generalized anxiety disorder Radha Garcia D.O. 04/21/2020 I10 Essential (primary) hypertension Drea Garcia D.O. 04/07/2020 I48.92 Unspecified atrial flutter KAYLYN Catalan 04/07/2020 K58.2 Mixed irritable bowel syndrome Zhanna KAYLYN Roberts 04/07/2020 Z79.01 longterm (current) use of antic oagulants KAYLYN Fraser Plan of Treatment Future Appointment(s):* 10/05/2020 1:30 pm - Drea Garcia D.O. at [facility] Functional Status Description No Information Available Mental Status Description No Information Available Referrals Refer to Reason for Referral Status Appt Date Lara Lopez M.D. Nela has chronic lyme disease and has had chronic spasmodic bowel issues with abdominal pain. She has a history of atrial flutter and planning to get an RF ablation in the near future. She has never had a screening colonoscopy [facility] [address] [place] [address] [phone]
--- OUTSIDE RECORDS SUMMARY | 2020-05-22 16:00 | CCD | Continuity of Care Document ---
Author Author Holter/Event/TelemetryNela Organization Unknown Address [address] [place] [address], [place] [address] Phone [phone] Care Team Providers Care Forensic Audit Expert Name Role Phone Mary Morrison RN PNP AUTM [phone] Drea Garcia DO AUTM [phone] Beto Harris MD AUTM [phone] Arie Moon MD AUTM [phone] Lara Lopez MD AUTM [phone] Problems Active Problems Provider Date Palpitations Hernan [...] Exercise Type/Frequency Does housework twice a w ione Exercise Type/Frequency Does yardwork twice a we ek Exercise Type/Frequency Does gardening daily Exercise Type/Frequency Does yardwork daily francheska cris power Exercise Limitations Other Lyme Diseas e Allergies, Adverse Reactions, Alerts Active Allergies Reaction Severity Comments Date Sulfa rash 10/18/2016 Tetanus Toxoid Vaccine, Inactivated injec tion site irritation 10/18/2016 Antazoline throat swells 10/18/2016 Medications Active Medications SIG Qnty Indications Ordering Provide r Date Bisoprolol Fumarate 5mg Tablets 1 by mouth twice a day for resting HR >90 bpm 60tabs I48.0 Jacques gunter MD 05/05/2020 I10 Flecainide Acetate 50mg Tablets take two [...] every day Unknown 10/17/2016 History Medications Atenolol 25mg Tablets 1 by mouth twice a day for HR >90 bpm I48.0 Jacques Galarza MD 05/02/19 - 05/05/2020 I10 Atenolol 25mg Tablets 1/2 by mouth twice a day I48.0 Jacques Galarza MD 04/27/2020 - 05/02/2020 I10 Atenolol 25mg Tablets 1 by mouth twice a day 180tabs I48.0 Jacques Galarza MD 04/19/2020 - 04/27/2020 I10 Atenolol 50mg Tablets 1 by mouth every [...] Result H/L Range Note CBC without Differential 04/14/2020 [facility] (315)- - White Blood Count 9.3 4.3-10.9 Red Blood Count 5.41 4.70-6.20 Platelets 236 130-400 Hemoglobin 17.0 13.0-17.0 Hematocrit 49.0 39.0-50.0 CBC W/Manual Diff 04/14/2020 [facility] (315)- - Hemoglobin Blood 17.0 Hematocrit 49.0 MCV (Corpuscular Volume) 90.6 MCH (Corpuscular Hemoglobin) 31.4 MCHC (Corpuscular Hemog Conc) 34.7 RDW 11.8 Platelet Count Blood Auto CNT 236 MPV -- Neutrophils 68.7 Fluid Bands -- Fluid Lymphocytes 20.4 Monocytes 9.3 Fluid Body Eosinophils 0.9 Basophils % 0.3 Absolute Neutrophils Auto CNT 6.4 Absolute Lymphocytes 1.9 Absolute Monocytes 0.9 Absolute Eosinophils 0.1 Absolute Basophils 0.0 CBC without Differential 04/11/2020 [facility] (315)- - White Blood Count 10.1 [...] Level 2.2 CBC without Differential 04/03/2020 [facility] (315)- - White Blood Count 7.7 [...] 2. Procedures Date Code Description Status 04/19/2020 88019 Arterial Pressure Wa veform Analysis For Assessment Of Central Art Completed 04/19/2020 80725 ECG 12-Lead Completed 12/03/2019 66926 ECG 12-Lead Completed Medical Devices Description No [...] - Jacques Galarza MD* I48.3 Typical atrial flutter* Recommendations:* Continue Eliquis 20 mg every evening. As noted below, atenolol was changed from 50 mg once daily to 25 mg twice a day because atenolol is a twice a day medication. * I48.0 Paroxysmal atrial fibrillation* New Medication:* Flecainide Acetate 50 mg - take two tablets by mouth once daily as needed for atrial fibrillation * Atenolol 25 mg - 1 by mouth twice a day * Referral:* No Doctor Selected * Recommendations:* Rate control versus rhythm control with antiarrhythmic drugs was discussed with the patient. General side effects of antiarrhythmic drugs including up to 5% risk of potentially fatal proarrhythmia (VT, VF) was explained to the patient. Pulmonary vein isolation ablation procedure (RF or cryo ablation) was explained to the patient including 80% success rate at 1 year, 60% success rate at 2 years; as well as potential for multiple ablation procedures. Patient prefers pulmonary vein isolation ablation procedure. I gave her the option of having this procedure performed in [place] or if she is willing to travel, to have the procedure done in [place]. She preferred to have procedure done in [place]. Patient was referred to tow car driver Dr. Arie Moon at the [facility] and [facility]. Between now and the time she undergoes PVI ablation procedure, she will continue with rhythm control approach. I gave her the option of staying on flecainide 50 mg twice a day versus "pill in the pocket" when necessary use of flecainide. The patient preferred to try the pill in the pocket approach. Flecainide was changed from 50 mg twice a day to flecainide 100 mg once daily when necessary for atrial fibrillation with RVR. Atenolol was changed from 50 mg once daily to 25 mg twice a day since this is a twice a day drug. Continue Xarelto at the current dosage. She was instructed to go to the ER if episodes of atrial fibrillation with RVR persists for 3 hours following flecainide 100 mg, or alternatively, to go to the ER if she has associated lightheadedness/dizziness, shortness of breath, or chest pain/discomfort during atrial fibrillation with RVR. I did discuss the option of implantation of a subcutaneous cardiac rhythm monitor for atrial fibrillation monitoring should the patient proceed with PVI ablation. * I10 Essential (primary) hypertension* New Medication:* Valsartan 80 mg - 1 by mouth daily at bedtime * Atenolol 25 mg - 1 by mouth twice a day * Recommendations:* Atenolol was changed from 50 mg once daily to 25 mg twice a day as noted above. Valsartan 80 mg at bedtime was added. * R94.31 Abnormal electrocardiogram [ECG] [EKG] * [...] manage, consider pulmonary vein isolation ablation. Thanks!! Closed Beto Harris MD typical atrial flutter; spec ifically, for consideration of RF ablation of typical atrial flutter. Closed [facility] [address] [place] [address] [address] [place] [id number] [phone]
--- OUTSIDE RECORDS SUMMARY | 2020-05-22 16:00 | CCD | Continuity of Care Document ---
Author Author Nela GARCIA Organization Unknown Address [address] [place] [address] Phone [phone] Care Team Providers Care Cleaning Matron Name Role Phone Drea Garcia D.O. AUTM Lara Lopez M.D. AUTM [phone] Problems Active Problems Provider Date Paroxysmal atrial [...] caps in the morning Unknown Berberine Complex [phone] Capsules Unknown Chlorella Capsules Unknown Vitamin D-3 [...] F O2 % BldC Oximetry 98 % [place] Body Weight 115 lb 04/07/2020 10:57am BP Systolic 124 mmHg BP Diastolic 74 mmHg Height 63 inches 5'3" Weight 132.25 lb BMI (Body Mass Index) 23.4 kg/m2 Heart Rate 63 /min Respiratory Rate 18 /min Body Temperature 98.1 F O2 % BldC Oximetry 98 % [place] Body Weight 115 lb Results Test Acquired Date Facility Test Result H/L Range Note Laboratory test finding 04/14/2020 [facility] Outpatient T vernelling (Registration) [address] [place], [place] [id number] [phone] iSTAT Troponin 0.38 NG/ML High 0.00-0.08 Istat Chem8+ Panel 04/14/2020 [facility] Outpatient Testi ng (Registration) [address] [place] [address] [phone] iSTAT HCT 48.0 % Normal 38.0-51.0 iSTAT Glucose 144 mg/dL High 70-105 iSTAT Sodium 138 mEq/L Normal 136-145 iSTAT Potassium 3.8 mEq/L Normal 3.5-5.1 iSTAT CA++ 4.4 mg/dL Low 4.5-5.3 iSTAT Chloride 104 mEq/L Normal 98-109 iSTAT Co2 25.0 MM/L Normal 23.0-27.0 iSTAT BUN 23 mg/dL Normal 8-26 iSTAT Creatinine 0.7 mg/dL Normal 0.6-1.3 CBC With Differential 04/14/2020 [facility] Outpatient Patti ting (Registration) [address] [place] [address] [phone] White Blood Count 9.3 10 Normal 4.0-10.0 [...] 36.0-66.0 Lymph % 20.4 % Low 24.0-44.0 Tate % 9.3 % High 0.0-5.0 Eos % 0.9 % Normal 0.0-3.0 Baso % 0.3 % Normal 0.0-1.0 Immature Granulocyte % 0.4 % Normal 0-3.0 Nucleated Red Blood Cell % 0.0 % Normal 0-0 Neutrophils # 6.4 10 Normal 1.5-8.5 Lymph # 1.9 10 Normal 1.5-5.0 Tate # 0.9 10 High 0.0-0.8 Eos # 0.1 10 Normal 0.0-0.5 Baso # 0.0 10 Normal 0.0-0.2 Laboratory test finding 04/10/2020 [facility] Outpatient T esting (Registration) [address] [place] [address] [phone] Thyroid Stimulating Hormone 2.030 uIU/ML Normal 0. 358-3.740 Complete Blood Count 04/10/2020 [facility] Outpatient Test ing (Registration) [address] [place] [address] [phone] White Blood Count 5.9 10 Normal 4.0-10.0 [...] % Normal 0-0 Istat Chem8+ Panel 04/10/2020 [facility] Outpatient Testi ng (Registration) [address] [place] [address] [phone] iSTAT HCT 50.0 % Normal 38.0-51.0 iSTAT Glucose 132 mg/dL High 70-105 iSTAT Sodium 140 mEq/L Normal 136-145 iSTAT Potassium 4.1 mEq/L Normal 3.5-5.1 iSTAT CA++ 4.7 mg/dL Normal 4.5-5.3 iSTAT Chloride 101 mEq/L Normal 98-109 iSTAT Co2 29.0 MM/L High 23.0-27.0 iSTAT BUN 20 mg/dL Normal 8-26 iSTAT Creatinine 0.8 mg/dL Normal 0.6-1.3 Laboratory test finding 04/10/2020 [facility] Outpatient T esting (Registration) [address] [place] [address] [phone] iSTAT Troponin 0.00 NG/ML Normal 0.00-0.08 Istat PT/Inr 04/10/2020 [facility] Outpatient Testi ng (Registration) [address] [place] [address] [phone] iSTAT Protime Seconds 15.8 seconds High 12.1-14. 4 iSTAT Inr 1.3 Normal Cardiac Marker Panel 04/10/2020 [facility] Outpatient Test ing (Registration) [address] [place] [address] [phone] CPK Creatine Phosphokinase 47 U/L Normal 26-19 2 CK-MB Value Mass 1.2 NG/ML Normal <3.6 MB/CK Relative Index 2.55 Normal < Or =4 1 Troponin I < 0.02 NG/ML Normal < 0.10 2 Comprehensive Metabolic Profil 04/10/2020 [facility] Outpa tient Testing (Registration) [address] [place] [address] [phone] Glucose, Fasting 84 mg/dL Normal 70-100 Blood [...] 1.5 Normal 1.2-2.2 Complete Blood Count 04/10/2020 [facility] Outpatient Test ing (Registration) [address] [place] [address] [phone] White Blood Count 5.9 10 Normal 4.0-10.0 [...] result in chart CBC With Differential 03/30/2020 [facility] Outpatient Patti ting (Registration) [address] [place] [address] [phone] White Blood Count 10.1 10 High 4.0-10.0 [...] 36.0-66.0 Lymph % 16.2 % Low 24.0-44.0 Tate % 9.0 % High 0.0-5.0 Eos % 0.1 % Normal 0.0-3.0 Baso % 0.4 % Normal 0.0-1.0 Immature Granulocyte % 0.3 % Normal 0-3.0 Nucleated Red Blood Cell % 0.0 % Normal 0-0 Neutrophils # 7.5 10 Normal 1.5-8.5 Lymph # 1.6 10 Normal 1.5-5.0 Tate # 0.9 10 High 0.0-0.8 Eos # 0.0 10 Normal 0.0-0.5 Baso # 0.0 10 Normal 0.0-0.2 Prothrombin Time/Inr 03/30/2020 [facility] Outpatient Test ing (Registration) [address] [place], [place] [phone] Prothrombin Time 14.3 seconds High 12.5-14.3 Inr 1.09 Normal 4 Laboratory test finding 03/30/2020 [facility] Outpatient T esting (Registration) [address] [place] [address] [phone] Partial Thromboplastin Time 30.0 seconds Normal 24 .2-38.5 Cardiac Marker Panel 03/30/2020 [facility] Outpatient Test ing (Registration) [address] [place] [address] [phone] CPK Creatine Phosphokinase 82 U/L Normal 26-19 2 CK-MB Value Mass 3.0 NG/ML Normal <3.6 MB/CK Relative Index 3.66 Normal < Or =4 5 Troponin I < 0.02 NG/ML Normal < 0.10 6 Liver Profile 03/30/2020 [facility] Outpatient Testi ng (Registration) [address] [place] [address] [phone] Ast/Sgot 63 U/L High 7-37 Alt/SGPT 100 U/L High 12-78 Alkaline Phosphatase 103 U/L Normal 45-117 Bilirubin,Total 0.6 mg/dL Normal 0.2-1.0 Bilirubin,Direct 0.2 mg/dL Normal 0.0-0.2 Total Protein 6.1 GM/DL Low 6.4-8.2 Albumin 3.6 GM/DL Normal 3.2-5.2 Albumin/Globulin Ratio 1.4 Normal 1.2-2.2 Basic Metabolic Profile 03/30/2020 [facility] Outpatient T esting (Registration) [address] [place] [address] [phone] Glucose, Fasting 80 mg/dL Normal 70-100 Blood [...] mg/dL Low 8.8-10.2 Laboratory test finding 03/30/2020 [facility] Outpatient T esting (Registration) [address] [place] [address] [phone] Thyroid Stimulating Hormone 2.050 uIU/ML Normal 0. 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 I48.92 Unspecified atrial flutter K58.2 Mixed irritable bowel syndro me Z79.01 group home (current) use of a nticoagulants I48.0 Paroxysmal atrial fibrillati on F41.1 Generalized anxiety disorder I10 Essential (primary) hyperten fernando Office Visit 04/07/2020 10:40a [facility] KAYLYN Fraser I48.92 Unspecified atrial flutter K58.2 Mixed irritable bowel syndro me Z79.01 group home (current) use of a nticoagulants Assessments Date Code Description Provider 04/21/2020 I48.92 Unspecified atrial flutter Drea Garcia D.O. 04/21/2020 K58.2 Mixed irritable bowel syndrome Yobani FranklinOSaray 04/21/2020 Z79.01 group home (current) use of antic oagulants Drea Vera D.O. 04/21/2020 I48.0 Paroxysmal atrial fibrillation Roz Garcia D.O. 04/21/2020 F41.1 Generalized anxiety disorder Radha Garcia D.O. 04/21/2020 I10 Essential (primary) hypertension Drea Garcia D.O. 04/07/2020 I48.92 Unspecified atrial flutter KAYLYN Catalan 04/07/2020 K58.2 Mixed irritable bowel syndrome Zhanna KAYLYN Roberts 04/07/2020 Z79.01 group home (current) use of antic oagulants KAYLYN Fraser Plan of Treatment Future Appointment(s):* 10/05/2020 1:30 pm - Drea Garcia D.O. at [facility] Functional Status Description No Information Available Mental [...] a screening colonoscopy [facility] [address] [place] [address] [phone]
--- OUTSIDE RECORDS SUMMARY | 2020-05-22 16:01 | CCD ---
Continuity of Care Document (CCD) Created on: 04/15/2020 Nela Arreola External Reference #: [id number] : [id number] Sex: Female Author Author Nela GARCIA Organization Unknown Address [address] [place] [address] Phone [phone] Care Team Providers Care District Manager Postal Service Name Role Phone Drea Garcia D.O. AUTM Lara Lopez M.D. AUTM [phone] Problems Active Problems Provider Date Paroxysmal atrial [...] SIG Qnty Indications Ordering Provide r Date Amlodipine Besylate 5mg Tablets 1 by mouth every morning Unknown Vitamin E 400Unit Capsules take one capsule by mouth once a day Unknown Lauricidin Ointment Unknown Antigrative Therapueticscortisol Manger 1 tab by mouth daily Unknown [place] WS 1265 80mg Capsules 1 cap by mouth bid Unknown Probiotic Capsules 1 caps in the morning Unknown Berberine Complex [phone] Capsules Unknown Chlorella Capsules Unknown Vitamin D-3 [...] take 1 tablet daily at bedtime 30tabs Drea Garcia D.O. 10/2020 - 04/14/2020 Dicyclomine HCL 10mg Capsules take one tablet every 8 hours by mouth as needed for diarrhea. 90caps Drea Vera D.O. 04/06/2020 - 04/07/2020 Immunizations Description No Information Available Vital Signs Date Vital Result Comment 04/07/2020 10:57am BP Systolic 124 mmHg BP Diastolic 74 mmHg Height 63 inches 5'3" Weight 132.25 lb BMI (Body Mass Index) 23.4 kg/m2 Heart Rate 63 /min Respiratory Rate 18 /min Body Temperature 98.1 F O2 % BldC Oximetry 98 % [place] Body Weight 115 lb 06/24/2019 10:22am BP Systolic 128 mmHg BP Diastolic 74 mmHg Height 63 inches 5'3" Weight 139.50 lb BMI (Body Mass Index) 24.7 kg/m2 Heart Rate 77 /min Respiratory Rate 18 /min Body Temperature 98.8 F O2 % BldC Oximetry 98 % [place] Body Weight 115 lb Results Test Acquired Date Facility Test Result H/L Range Note Laboratory test finding 04/14/2020 [facility] Outpatient T esting (Registration) [address] [place] [address] [phone] iSTAT Troponin 0.38 NG/ML High 0.00-0.08 Istat Chem8+ Panel 04/14/2020 [facility] Outpatient Testi ng (Registration) [address] [place] [address] [phone] iSTAT HCT 48.0 % Normal 38.0-51.0 iSTAT Glucose 144 mg/dL High 70-105 iSTAT Sodium 138 mEq/L Normal 136-145 iSTAT Potassium 3.8 mEq/L Normal 3.5-5.1 iSTAT CA++ 4.4 mg/dL Low 4.5-5.3 iSTAT Chloride 104 mEq/L Normal 98-109 iSTAT Co2 25.0 MM/L Normal 23.0-27.0 iSTAT BUN 23 mg/dL Normal 8-26 iSTAT Creatinine 0.7 mg/dL Normal 0.6-1.3 CBC With Differential 04/14/2020 [facility] Outpatient Patti ting (Registration) [address] [place], [place] [phone] White Blood Count 9.3 10 Normal 4.0-10.0 [...] 36.0-66.0 Lymph % 20.4 % Low 24.0-44.0 [place] % 9.3 % High 0.0-5.0 Eos % 0.9 % Normal 0.0-3.0 Baso % 0.3 % Normal 0.0-1.0 Immature Granulocyte % 0.4 % Normal 0-3.0 Nucleated Red Blood Cell % 0.0 % Normal 0-0 Neutrophils # 6.4 10 Normal 1.5-8.5 Lymph # 1.9 10 Normal 1.5-5.0 Castro # 0.9 10 High 0.0-0.8 Eos # 0.1 10 Normal 0.0-0.5 Baso # 0.0 10 Normal 0.0-0.2 Laboratory test finding 04/10/2020 [facility] Outpatient T silvia (Registration) [address] [place] [address] [phone] Thyroid Stimulating Hormone 2.030 uIU/ML Normal 0. 358-3.740 Complete Blood Count 04/10/2020 [facility] Outpatient Test ing (Registration) [address] [place] [address] [phone] White Blood Count 5.9 10 Normal 4.0-10.0 [...] % Normal 0-0 Istat Chem8+ Panel 04/10/2020 [facility] Outpatient Testi ng (Registration) [address] [place] [address] [phone] iSTAT HCT 50.0 % Normal 38.0-51.0 iSTAT Glucose 132 mg/dL High 70-105 iSTAT Sodium 140 mEq/L Normal 136-145 iSTAT Potassium 4.1 mEq/L Normal 3.5-5.1 iSTAT CA++ 4.7 mg/dL Normal 4.5-5.3 iSTAT Chloride 101 mEq/L Normal 98-109 iSTAT Co2 29.0 MM/L High 23.0-27.0 iSTAT BUN 20 mg/dL Normal 8-26 iSTAT Creatinine 0.8 mg/dL Normal 0.6-1.3 Laboratory test finding 04/10/2020 [facility] Outpatient T esting (Registration) [address] [place] [address] [phone] iSTAT Troponin 0.00 NG/ML Normal 0.00-0.08 Istat PT/Inr 04/10/2020 [facility] Outpatient Testi ng (Registration) [address] [place] [address] [phone] iSTAT Protime Seconds 15.8 seconds High 12.1-14. 4 iSTAT Inr 1.3 Normal Cardiac Marker Panel 04/10/2020 [facility] Outpatient Test ing (Registration) [address] [place] [address] [phone] CPK Creatine Phosphokinase 47 U/L Normal 26-19 2 CK-MB Value Mass 1.2 NG/ML Normal <3.6 MB/CK Relative Index 2.55 Normal < Or =4 1 Troponin I < 0.02 NG/ML Normal < 0.10 2 Comprehensive Metabolic Profil 04/10/2020 [facility] Outpa tient Testing (Registration) [address] [place] [address] [phone] Glucose, Fasting 84 mg/dL Normal 70-100 Blood [...] 1.5 Normal 1.2-2.2 Complete Blood Count 04/10/2020 [facility] Outpatient Test ing (Registration) [address] [place] [address] [phone] White Blood Count 5.9 10 Normal 4.0-10.0 [...] result in chart CBC With Differential 03/30/2020 [facility] Outpatient Patti ting (Registration) [address] [place] [address] [phone] White Blood Count 10.1 10 High 4.0-10.0 [...] 36.0-66.0 Lymph % 16.2 % Low 24.0-44.0 Castro % 9.0 % High 0.0-5.0 Eos % 0.1 % Normal 0.0-3.0 Baso % 0.4 % Normal 0.0-1.0 Immature Granulocyte % 0.3 % Normal 0-3.0 Nucleated Red Blood Cell % 0.0 % Normal 0-0 Neutrophils # 7.5 10 Normal 1.5-8.5 Lymph # 1.6 10 Normal 1.5-5.0 Castro # 0.9 10 High 0.0-0.8 Eos # 0.0 10 Normal 0.0-0.5 Baso # 0.0 10 Normal 0.0-0.2 Prothrombin Time/Inr 03/30/2020 [facility] Outpatient Test ing (Registration) [address] [place] [address] [phone] Prothrombin Time 14.3 seconds High 12.5-14.3 Inr 1.09 Normal 4 Laboratory test finding 03/30/2020 [facility] Outpatient T esting (Registration) [address] [place] [address] [phone] Partial Thromboplastin Time 30.0 seconds Normal 24 .2-38.5 Cardiac Marker Panel 03/30/2020 [facility] Outpatient Test ing (Registration) [address] [place] [address] [phone] CPK Creatine Phosphokinase 82 U/L Normal 26-19 2 CK-MB Value Mass 3.0 NG/ML Normal <3.6 MB/CK Relative Index 3.66 Normal < Or =4 5 Troponin I < 0.02 NG/ML Normal < 0.10 6 Liver Profile 03/30/2020 [facility] Outpatient Testi ng (Registration) [address] [place] [address] [phone] Ast/Sgot 63 U/L High 7-37 Alt/SGPT 100 U/L High 12-78 Alkaline Phosphatase 103 U/L Normal 45-117 Bilirubin,Total 0.6 mg/dL Normal 0.2-1.0 Bilirubin,Direct 0.2 mg/dL Normal 0.0-0.2 Total Protein 6.1 GM/DL Low 6.4-8.2 Albumin 3.6 GM/DL Normal 3.2-5.2 Albumin/Globulin Ratio 1.4 Normal 1.2-2.2 Basic Metabolic Profile 03/30/2020 [facility] Outpatient T esting (Registration) [address] [place] [address] [phone] Glucose, Fasting 80 mg/dL Normal 70-100 Blood [...] mg/dL Low 8.8-10.2 Laboratory test finding 03/30/2020 [facility] Outpatient T esting (Registration) [address] [place] [address] [phone] Thyroid Stimulating Hormone 2.050 uIU/ML Normal 0. 358-3.740 Free T4 1.30 ng/dL Normal 0.76-1.46 Digoxin Level 0.1 NG/ML Low 0.5-2.0 Laboratory test finding 03/30/2020 [facility] Outpatient T silvia (Registration) [address] [place] [address] [phone] Magnesium Level 2.3 mg/dL Normal 1.8-2.4 Ethyl Alcohol (Ethanol) 0.003 % Normal 0.000-0.010 1 DIAGNOSIS CRITERIA MMB ng/ml Relative Index (RI) NON-AMI < or = 5 N/A NGUYEN ZONE > 5 < or = 4 AMI > 5 > 4 2 Troponin I Reference Interva l for [employer]: 99th Percentile= 0.00-0.045 ng/ml Risk Stratification: <= [...] Little GFR Left ESRD GFR <15 on SUPERVISOR ADVICE 4 THERAPUTIC HUMAN INR VALUES INDICATIONS NORMAL [...] 6 Troponin I Reference Interva l for [employer]: 99th Percentile= 0.00-0.045 ng/ml Risk Stratification: <= [...] Little GFR Left ESRD GFR <15 on SUPERVISOR ADVICE Procedures Date Code Description Status 04/07/2020 63171 Electrocardiogram Complete Compl eted Medical Devices Description No Information Available Encounters Type Date Location Provider Dx Diagnosis Office Visit 04/07/2020 10:40a [facility] KAYLYN Fraser I48.92 Unspecified atrial flutter K58.2 Mixed irritable bowel syndro al Z79.01 shelter (current) use of a nticoagulants Assessments Date Code Description Provider 04/07/2020 I48.92 Unspecified atrial flutter KAYLYN Catalan 04/07/2020 K58.2 Mixed irritable bowel syndrome KAYLYN Pappas 04/07/2020 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 at [facility] * 10/05/2020 1:30 pm - Drea Garcia D.O. at [facility] Functional Status Description No Information Available Mental [...] a screening colonoscopy [facility] [address] [place], [place] [address] [phone]
--- OUTSIDE RECORDS SUMMARY | 2020-05-22 16:01 | CCD | Continuity of Care Document ---
Author Author Nela GARCIA Organization Unknown Address [address] [place] [address] Phone [phone] Care Team Providers Care Education Finance Processor Name Role Phone Drea Garcia D.O. AUTM [phone] Lara Lopez M.D. AUTM [phone] Problems Active Problems Provider Date Paroxysmal atrial [...] SIG Qnty Indications Ordering Provide r Date Vitamin E 400Unit Capsules take one capsule by mouth once a day Unknown Diltiazem HCL 30mg Tablets 1 tab by mouth 4 times a day George Perea M.D. Lauricidin Ointment Unknown Antigrative Therapueticscortisol Manger 1 tab by mouth daily Unknown Lavela WS 1265 80mg Capsules 1 cap by mouth bid Unknown Probiotic Capsules 1 caps in the morning Unknown Berberine Complex [id number] Capsules Unknown Chlorella Capsules Unknown Vitamin D-3 5000Unit Tablets to be taken by mouth once a day Unknown C Complex 1000mg Tablets ER Unknown Zinc 50mg Tablets 1 by laquita th every day Unknown L-Glutamine 500mg Capsules Unknown Magnesium Citrate 200mg Tablets Unknown Astragalus Root Powder 20 drops daily Unknown Xarelto 20mg Tablets Take One Tablet By Mouth Every Day Unknown Atenolol 25mg Tablets Take One Half Tablet By Mouth Every Day Unknown History Medications Dicyclomine HCL 10mg Capsules take one tablet [...] F O2 % BldC Oximetry 98 % [place] Body Weight 115 lb 06/24/2019 10:22am BP Systolic 128 mmHg BP Diastolic 74 mmHg Height 63 inches 5'3" Weight 139.50 lb BMI (Body Mass Index) 24.7 kg/m2 Heart Rate 77 /min Respiratory Rate 18 /min Body Temperature 98.8 F O2 % BldC Oximetry 98 % [place] Body Weight 115 lb Results Test Acquired Date Facility Test Result H/L Range Note Complete Blood Count 04/10/2020 [facility] Outpatient Test ing (Registration) [address] [place] [address] [phone] White Blood Count 5.9 10 Normal 4.0-10.0 [...] Blood Cell % 0.0 % Normal 0-0 Comprehensive Metabolic Profil 04/10/2020 [facility] Outpa tient Testing (Registration) [address] [place] [address] [phone] Glucose, Fasting 84 mg/dL Normal 70-100 Blood Urea Nitrogen 17 mg/dL Normal 7-18 Creatinine For GFR 0.69 mg/dL Normal 0.55-1.30 Glomerular Filtration Rate > 60.0 Normal >45 1 Sodium Level 141 mEq/L Normal 136-145 Potassium [...] Normal 3.2-5.2 Albumin/Globulin Ratio 1.5 Normal 1.2-2.2 Cardiac Marker Panel 04/10/2020 [facility] Outpatient Test ing (Registration) [address] [place], [place] [address] [phone] CPK Creatine Phosphokinase 47 U/L Normal 26-19 2 CK-MB Value Mass 1.2 NG/ML Normal <3.6 MB/CK Relative Index 2.55 Normal < Or =4 2 Troponin I < 0.02 NG/ML Normal < 0.10 3 Istat PT/Inr 04/10/2020 [facility] Outpatient Testi ng (Registration) [address] [place] [address] [phone] iSTAT Protime Seconds 15.8 seconds High 12.1-14. 4 iSTAT Inr 1.3 Normal Laboratory test finding 04/10/2020 [facility] Outpatient T esting (Registration) [address] [place] [address] [phone] iSTAT Troponin 0.00 NG/ML Normal 0.00-0.08 Istat Chem8+ Panel 04/10/2020 [facility] Outpatient Testi ng (Registration) [address] [place] [address] [phone] iSTAT HCT 50.0 % Normal 38.0-51.0 iSTAT Glucose 132 mg/dL High 70-105 iSTAT Sodium 140 mEq/L Normal 136-145 iSTAT Potassium 4.1 mEq/L Normal 3.5-5.1 iSTAT CA++ 4.7 mg/dL Normal 4.5-5.3 iSTAT Chloride 101 mEq/L Normal 98-109 iSTAT Co2 29.0 MM/L High 23.0-27.0 iSTAT BUN 20 mg/dL Normal 8-26 iSTAT Creatinine 0.8 mg/dL Normal 0.6-1.3 Complete Blood Count 04/10/2020 [facility] Outpatient Test ing (Registration) [address] [place] [phone] White Blood Count 5.9 10 Normal 4.0-10.0 [...] Blood Cell % 0.0 % Normal 0-0 Laboratory test finding 04/10/2020 [facility] Outpatient T esting (Registration) [address] [place] [address] [phone] Thyroid Stimulating Hormone 2.030 uIU/ML Normal 0. 358-3.740 Order 04/07/2020 In House Orders EKG see result in chart Prothrombin Time/Inr 03/30/2020 [facility] Outpatient Test ing (Registration) [address] [place] [address] [phone] Prothrombin Time 14.3 seconds High 12.5-14.3 Inr 1.09 Normal 4 Laboratory test finding 03/30/2020 [facility] Outpatient T esting (Registration) [address] [place] [address] [phone] Partial Thromboplastin Time 30.0 seconds Normal 24 .2-38.5 Cardiac Marker Panel 03/30/2020 [facility] Outpatient Test ing (Registration) [address] [place] [address] [phone] CPK Creatine Phosphokinase 82 U/L Normal 26-19 2 CK-MB Value Mass 3.0 NG/ML Normal <3.6 MB/CK Relative Index 3.66 Normal < Or =4 5 Troponin I < 0.02 NG/ML Normal < 0.10 6 Liver Profile 03/30/2020 [facility] Outpatient Testi ng (Registration) [address] [place] [address] [phone] Ast/Sgot 63 U/L High 7-37 Alt/SGPT 100 U/L High 12-78 Alkaline Phosphatase 103 U/L Normal 45-117 Bilirubin,Total 0.6 mg/dL Normal 0.2-1.0 Bilirubin,Direct 0.2 mg/dL Normal 0.0-0.2 Total Protein 6.1 GM/DL Low 6.4-8.2 Albumin 3.6 GM/DL Normal 3.2-5.2 Albumin/Globulin Ratio 1.4 Normal 1.2-2.2 Basic Metabolic Profile 03/30/2020 [facility] Outpatient T esting (Registration) [address] [place] [address] [phone] Glucose, Fasting 80 mg/dL Normal 70-100 Blood [...] [facility] (Registration) [address] [place] [address] [phone] Thyroid Stimulating Hormone 2.050 uIU/ML Normal 0. 358-3.740 Free T4 1.30 ng/dL Normal 0.76-1.46 Digoxin Level 0.1 NG/ML Low 0.5-2.0 Laboratory test finding 03/30/2020 [facility] Outpatient T esting (Registration) [address] [place] [address] [phone] Magnesium Level 2.3 mg/dL Normal 1.8-2.4 Ethyl Alcohol (Ethanol) 0.003 % Normal 0.000-0.010 CBC With Differential 03/30/2020 [facility] Outpatient Patti ting (Registration) [address] [place] [address] [phone] White Blood Count 10.1 10 High 4.0-10.0 [...] 36.0-66.0 Lymph % 16.2 % Low 24.0-44.0 [place] % 9.0 % High 0.0-5.0 Eos % 0.1 % Normal 0.0-3.0 Baso % 0.4 % Normal 0.0-1.0 Immature Granulocyte % 0.3 % Normal 0-3.0 Nucleated Red Blood Cell % 0.0 % Normal 0-0 Neutrophils # 7.5 10 Normal 1.5-8.5 Lymph # 1.6 10 Normal 1.5-5.0 [place] # 0.9 10 High 0.0-0.8 Eos # 0.0 10 Normal 0.0-0.5 Baso # 0.0 10 Normal 0.0-0.2 1 Units are mL/min/1.73 m2 Chronic Kidney Disease Staging per NKF: Stage I & II GFR >=60 Normal to Mildly Decreased Stage III GFR 30-59 Moderately Decreased Stage IV GFR 15-29 Severely Decreased Stage V GFR <15 Very Little GFR Left ESRD GFR <15 on MARINE CONSULTANT 2 DIAGNOSIS CRITERIA MMB ng/ml Relative Index (RI) NON-AMI < or = 5 N/A NGUYEN ZONE > 5 < or = 4 AMI > 5 > 4 3 Troponin I Reference Interva l for My[place]ota LOCI: 99th Percentile= 0.00-0.045 ng/ml Risk Stratification: <= 0.10 ng/ml Decreased Risk for Adverse Clinical Events. 0.10-1.50 ng/ml Increased Risk for Adv erse Clinical Events. Evaluation of additional criterion and/or repeat testing in 2-6 hours is suggested to rule out myocardial damage. >= 1.50 ng/ml Indicative of Myocardial Injury. 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 at [facility] Functional Status Description No Information Available Mental [...] a screening colonoscopy [facility] [address] [place] [address] [phone]
--- OUTSIDE RECORDS SUMMARY | 2020-05-22 16:01 | CCD | Continuity of Care Document ---
Author Author Nela GARCIA Organization Unknown Address [address] [place] [address] Phone [phone] Care Team Providers Care Label Fuser Tender Name Role Phone Drea Garcia D.O. AUTM [phone] Lara Lopez M.D. AUTM [phone] Problems Active Problems Provider Date Paroxysmal atrial [...] caps in the morning Unknown Berberine Complex [id number] Capsules Unknown Chlorella Capsules Unknown Vitamin D-3 [...] F O2 % BldC Oximetry 98 % [place] Body Weight 115 lb 06/24/2019 10:22am BP Systolic 128 mmHg BP Diastolic 74 mmHg Height 63 inches 5'3" Weight 139.50 lb BMI (Body Mass Index) 24.7 kg/m2 Heart Rate 77 /min Respiratory Rate 18 /min Body Temperature 98.8 F O2 % BldC Oximetry 98 % [place] Body Weight 115 lb Results Test Acquired Date Facility Test Result H/L Range Note Complete Blood Count 04/10/2020 [facility] Outpatient Test ing (Registration) [address] [place] [address] [phone] White Blood Count 5.9 10 Normal 4.0-10.0 [...] % Normal 0-0 Comprehensive Metabolic Profil 04/10/2020 [facility] Outpa tient Testing (Registration) [address] [place] [address] [phone] Glucose, Fasting 84 mg/dL Normal 70-100 Blood [...] 1.5 Normal 1.2-2.2 Cardiac Marker Panel 04/10/2020 [facility] Outpatient Test ing (Registration) [address] [place], [place] [address] [phone] CPK Creatine Phosphokinase 47 U/L Normal 26-19 2 CK-MB Value Mass 1.2 NG/ML Normal <3.6 MB/CK Relative Index 2.55 Normal < Or =4 2 Troponin I < 0.02 NG/ML Normal < 0.10 3 Istat PT/Inr 04/10/2020 [facility] Outpatient Testi ng (Registration) [address] [place] [address] [phone] iSTAT Protime Seconds 15.8 seconds High 12.1-14. 4 iSTAT Inr 1.3 Normal Laboratory test finding 04/10/2020 [facility] Outpatient T esting (Registration) [address] [place] [address] [phone] iSTAT Troponin 0.00 NG/ML Normal 0.00-0.08 Istat Chem8+ Panel 04/10/2020 [facility] Outpatient Testi ng (Registration) [address] [place] [address] [phone] iSTAT HCT 50.0 % Normal 38.0-51.0 iSTAT Glucose 132 mg/dL High 70-105 iSTAT Sodium 140 mEq/L Normal 136-145 iSTAT Potassium 4.1 mEq/L Normal 3.5-5.1 iSTAT CA++ 4.7 mg/dL Normal 4.5-5.3 iSTAT Chloride 101 mEq/L Normal 98-109 iSTAT Co2 29.0 MM/L High 23.0-27.0 iSTAT BUN 20 mg/dL Normal 8-26 iSTAT Creatinine 0.8 mg/dL Normal 0.6-1.3 Complete Blood Count 04/10/2020 [facility] Outpatient Test ing (Registration) [address] [place] [address] [phone] White Blood Count 5.9 10 Normal 4.0-10.0 [...] % Normal 0-0 Laboratory test finding 04/10/2020 [facility] Outpatient T esting (Registration) [address] [place] [address] [phone] Thyroid Stimulating Hormone 2.030 uIU/ML Normal 0. 358-3.740 Order 04/07/2020 In House Orders EKG see result in chart Prothrombin Time/Inr 03/30/2020 [facility] Outpatient Test ing (Registration) [address] [place] [address] [phone] Prothrombin Time 14.3 seconds High 12.5-14.3 Inr 1.09 Normal 4 Laboratory test finding 03/30/2020 [facility] Outpatient T esting (Registration) [address] [place] [address] [phone] Partial Thromboplastin Time 30.0 seconds Normal 24 .2-38.5 Cardiac Marker Panel 03/30/2020 [facility] Outpatient Test ing (Registration) [address] [place] [address] [phone] CPK Creatine Phosphokinase 82 U/L Normal 26-19 2 CK-MB Value Mass 3.0 NG/ML Normal <3.6 MB/CK Relative Index 3.66 Normal < Or =4 5 Troponin I < 0.02 NG/ML Normal < 0.10 6 Liver Profile 03/30/2020 [facility] Outpatient Testi ng (Registration) [address] [place] [address] [phone] Ast/Sgot 63 U/L High 7-37 Alt/SGPT 100 U/L High 12-78 Alkaline Phosphatase 103 U/L Normal 45-117 Bilirubin,Total 0.6 mg/dL Normal 0.2-1.0 Bilirubin,Direct 0.2 mg/dL Normal 0.0-0.2 Total Protein 6.1 GM/DL Low 6.4-8.2 Albumin 3.6 GM/DL Normal 3.2-5.2 Albumin/Globulin Ratio 1.4 Normal 1.2-2.2 Basic Metabolic Profile 03/30/2020 [facility] Outpatient T esting (Registration) [address] [place] [address] [phone] Glucose, Fasting 80 mg/dL Normal 70-100 Blood [...] mg/dL Low 8.8-10.2 Laboratory test finding 03/30/2020 [facility] Outpatient T esting (Registration) [address] [place] [address] [phone] Thyroid Stimulating Hormone 2.050 uIU/ML Normal 0. 358-3.740 Free T4 1.30 ng/dL Normal 0.76-1.46 Digoxin Level 0.1 NG/ML Low 0.5-2.0 Laboratory test finding 03/30/2020 [facility] Outpatient T esting (Registration) [address] [place] [address] [phone] Magnesium Level 2.3 mg/dL Normal 1.8-2.4 Ethyl Alcohol (Ethanol) 0.003 % Normal 0.000-0.010 CBC With Differential 03/30/2020 [facility] Outpatient Patti ting (Registration) [address] [place] [address] [phone] White Blood Count 10.1 10 High 4.0-10.0 [...] 36.0-66.0 Lymph % 16.2 % Low 24.0-44.0 [place] % 9.0 % High 0.0-5.0 Eos % 0.1 % Normal 0.0-3.0 Baso % 0.4 % Normal 0.0-1.0 Immature Granulocyte % 0.3 % Normal 0-3.0 Nucleated Red Blood Cell % 0.0 % Normal 0-0 Neutrophils # 7.5 10 Normal 1.5-8.5 Lymph # 1.6 10 Normal 1.5-5.0 [place] # 0.9 10 High 0.0-0.8 Eos # 0.0 10 Normal 0.0-0.5 Baso # 0.0 10 Normal 0.0-0.2 1 Units are mL/min/1.73 m2 Chronic Kidney Disease Staging per NKF: Stage I & II GFR >=60 Normal to Mildly Decreased Stage III GFR 30-59 Moderately Decreased Stage IV GFR 15-29 Severely Decreased Stage V GFR <15 Very Little GFR Left ESRD GFR <15 on PROGRAM OR PROJECT ADMINISTRATOR 2 DIAGNOSIS CRITERIA MMB ng/ml Relative Index (RI) NON-AMI < or = 5 N/A NGUYEN ZONE > 5 < or = 4 AMI > 5 > 4 3 Troponin I Reference Interva l for Doorbot[employer] LOCI: 99th Percentile= 0.00-0.045 ng/ml Risk Stratification: [...] 6 Troponin I Reference Interva l for Doorbot[employer] LOCI: 99th Percentile= 0.00-0.045 ng/ml Risk Stratification: [...] Little GFR Left ESRD GFR <15 on PROGRAM OR PROJECT ADMINISTRATOR Procedures Date Code Description Status 04/07/2020 34433 Electrocardiogram Complete Compl eted Medical Devices Description No Information Available Encounters Type Date Location Provider Dx Diagnosis Office Visit 04/07/2020 10:40a [facility] KAYLYN Fraser I48.92 Unspecified atrial flutter K58.2 Mixed irritable bowel syndro me 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
--- OUTSIDE RECORDS SUMMARY | 2020-05-22 16:01 | CCD | Continuity of Care Document ---
Author Author Nela GARCIA Organization Unknown Address [address] [place] [address] Phone [phone] Care Team Providers Care Pneumatic Tester Name Role Phone Drea Garcia D.O. AUTM Lara Lopez M.D. AUTM [phone] Problems Active Problems Provider Date Paroxysmal atrial [...] caps in the morning Unknown Berberine Complex [id number] Capsules Unknown Chlorella Capsules Unknown Vitamin D-3 [...] F O2 % BldC Oximetry 98 % [place] Body Weight 115 lb 06/24/2019 10:22am BP Systolic 128 mmHg BP Diastolic 74 mmHg Height 63 inches 5'3" Weight 139.50 lb BMI (Body Mass Index) 24.7 kg/m2 Heart Rate 77 /min Respiratory Rate 18 /min Body Temperature 98.8 F O2 % BldC Oximetry 98 % [place] Body Weight 115 lb Results Test Acquired Date Facility Test Result H/L Range Note Laboratory test finding 04/14/2020 [facility] Outpatient T esting (Registration) [address] [place] [address] [phone] iSTAT Troponin 0.38 NG/ML High 0.00-0.08 Istat Chem8+ Panel 04/14/2020 [facility] Outpatient Testi ng (Registration) [address] [place] [address] [phone] iSTAT HCT 48.0 % Normal 38.0-51.0 iSTAT Glucose 144 mg/dL High 70-105 iSTAT Sodium 138 mEq/L Normal 136-145 iSTAT Potassium 3.8 mEq/L Normal 3.5-5.1 iSTAT CA++ 4.4 mg/dL Low 4.5-5.3 iSTAT Chloride 104 mEq/L Normal 98-109 iSTAT Co2 25.0 MM/L Normal 23.0-27.0 iSTAT BUN 23 mg/dL Normal 8-26 iSTAT Creatinine 0.7 mg/dL Normal 0.6-1.3 CBC With Differential 04/14/2020 [facility] Outpatient Patti ting (Registration) [address] [place], [place] [address] [phone] White Blood Count 9.3 10 Normal 4.0-10.0 [...] 36.0-66.0 Lymph % 20.4 % Low 24.0-44.0 [place] % 9.3 % High 0.0-5.0 Eos % 0.9 % Normal 0.0-3.0 Baso % 0.3 % Normal 0.0-1.0 Immature Granulocyte % 0.4 % Normal 0-3.0 Nucleated Red Blood Cell % 0.0 % Normal 0-0 Neutrophils # 6.4 10 Normal 1.5-8.5 Lymph # 1.9 10 Normal 1.5-5.0 [place] # 0.9 10 High 0.0-0.8 Eos # 0.1 10 Normal 0.0-0.5 Baso # 0.0 10 Normal 0.0-0.2 Laboratory test finding 04/10/2020 [facility] Outpatient T silvia (Registration) [address] [place] [address] [phone] Thyroid Stimulating Hormone 2.030 uIU/ML Normal 0. 358-3.740 Complete Blood Count 04/10/2020 [facility] Outpatient Test ing (Registration) [address] [place] [address] [phone] White Blood Count 5.9 10 Normal 4.0-10.0 [...] % Normal 0-0 Istat Chem8+ Panel 04/10/2020 [facility] Outpatient Testi ng (Registration) [address] [place] [address] [phone] iSTAT HCT 50.0 % Normal 38.0-51.0 iSTAT Glucose 132 mg/dL High 70-105 iSTAT Sodium 140 mEq/L Normal 136-145 iSTAT Potassium 4.1 mEq/L Normal 3.5-5.1 iSTAT CA++ 4.7 mg/dL Normal 4.5-5.3 iSTAT Chloride 101 mEq/L Normal 98-109 iSTAT Co2 29.0 MM/L High 23.0-27.0 iSTAT BUN 20 mg/dL Normal 8-26 iSTAT Creatinine 0.8 mg/dL Normal 0.6-1.3 Laboratory test finding 04/10/2020 [facility] Outpatient T esting (Registration) [address] [place] [address] [phone] iSTAT Troponin 0.00 NG/ML Normal 0.00-0.08 Istat PT/Inr 04/10/2020 [facility] Outpatient Testi ng (Registration) [address] [place] [address] [phone] iSTAT Protime Seconds 15.8 seconds High 12.1-14. 4 iSTAT Inr 1.3 Normal Cardiac Marker Panel 04/10/2020 [facility] Outpatient Test ing (Registration) [address] [place] [address] [phone] CPK Creatine Phosphokinase 47 U/L Normal 26-19 2 CK-MB Value Mass 1.2 NG/ML Normal <3.6 MB/CK Relative Index 2.55 Normal < Or =4 1 Troponin I < 0.02 NG/ML Normal < 0.10 2 Comprehensive Metabolic Profil 04/10/2020 [facility] Outpa tient Testing (Registration) [address] [place] [address] [phone] Glucose, Fasting 84 mg/dL Normal 70-100 Blood [...] 1.5 Normal 1.2-2.2 Complete Blood Count 04/10/2020 [facility] Outpatient Test ing (Registration) [address] [place] [address] [phone] White Blood Count 5.9 10 Normal 4.0-10.0 [...] result in chart CBC With Differential 03/30/2020 [facility] Outpatient Patti ting (Registration) [address] [place] [address] [phone] White Blood Count 10.1 10 High 4.0-10.0 [...] 36.0-66.0 Lymph % 16.2 % Low 24.0-44.0 [place] % 9.0 % High 0.0-5.0 Eos % 0.1 % Normal 0.0-3.0 Baso % 0.4 % Normal 0.0-1.0 Immature Granulocyte % 0.3 % Normal 0-3.0 Nucleated Red Blood Cell % 0.0 % Normal 0-0 Neutrophils # 7.5 10 Normal 1.5-8.5 Lymph # 1.6 10 Normal 1.5-5.0 [place] # 0.9 10 High 0.0-0.8 Eos # 0.0 10 Normal 0.0-0.5 Baso # 0.0 10 Normal 0.0-0.2 Prothrombin Time/Inr 03/30/2020 [facility] Outpatient Test ing (Registration) [address] [place] [address] [phone] Prothrombin Time 14.3 seconds High 12.5-14.3 Inr 1.09 Normal 4 Laboratory test finding 03/30/2020 [facility] Outpatient T esting (Registration) [address] [place] [address] [phone] Partial Thromboplastin Time 30.0 seconds Normal 24 .2-38.5 Cardiac Marker Panel 03/30/2020 [facility] Outpatient Test ing (Registration) [address] [place] [address] [phone] CPK Creatine Phosphokinase 82 U/L Normal 26-19 2 CK-MB Value Mass 3.0 NG/ML Normal <3.6 MB/CK Relative Index 3.66 Normal < Or =4 5 Troponin I < 0.02 NG/ML Normal < 0.10 6 Liver Profile 03/30/2020 [facility] Outpatient Testi ng (Registration) [address] [place] [address] [phone] Ast/Sgot 63 U/L High 7-37 Alt/SGPT 100 U/L High 12-78 Alkaline Phosphatase 103 U/L Normal 45-117 Bilirubin,Total 0.6 mg/dL Normal 0.2-1.0 Bilirubin,Direct 0.2 mg/dL Normal 0.0-0.2 Total Protein 6.1 GM/DL Low 6.4-8.2 Albumin 3.6 GM/DL Normal 3.2-5.2 Albumin/Globulin Ratio 1.4 Normal 1.2-2.2 Basic Metabolic Profile 03/30/2020 [facility] Outpatient T esting (Registration) [address] [place] [address] [phone] Glucose, Fasting 80 mg/dL Normal 70-100 Blood [...] mg/dL Low 8.8-10.2 Laboratory test finding 03/30/2020 [facility] Outpatient T esting (Registration) [address] [place] [address] [phone] Thyroid Stimulating Hormone 2.050 uIU/ML Normal 0. 358-3.740 Free T4 1.30 ng/dL Normal 0.76-1.46 Digoxin Level 0.1 NG/ML Low 0.5-2.0 Laboratory test finding 03/30/2020 [facility] Outpatient T silvia (Registration) [address] [place] [address] [phone] Magnesium Level 2.3 mg/dL Normal 1.8-2.4 Ethyl Alcohol (Ethanol) 0.003 % Normal 0.000-0.010 1 DIAGNOSIS CRITERIA MMB ng/ml Relative Index (RI) NON-AMI < or = 5 N/A NGUYEN ZONE > 5 < or = 4 AMI > 5 > 4 2 Troponin I Reference Interva l for [employer]: 99th Percentile= 0.00-0.045 ng/ml Risk Stratification: <= [...] Little GFR Left ESRD GFR <15 on CHIEF PETROLEUM ENGINEER 4 THERAPUTIC HUMAN INR VALUES INDICATIONS NORMAL [...] Troponin I Reference Interva l for Siemens [place] [employer]: 99th Percentile= 0.00-0.045 ng/ml Risk Stratification: <= [...] Little GFR Left ESRD GFR <15 on CHIEF PETROLEUM ENGINEER Procedures Date Code Description Status 04/07/2020 07970 Electrocardiogram Complete Compl eted Medical Devices Description No Information Available Encounters Type Date Location Provider Dx Diagnosis Office Visit 04/07/2020 10:40a [facility] KAYLYN Fraser I48.92 Unspecified atrial flutter K58.2 Mixed irritable bowel syndro [place] Z79.01 half-way (current) use of a nticoagulants Assessments Date Code Description Provider 04/07/2020 I48.92 Unspecified atrial flutter KAYLYN Catalan 04/07/2020 K58.2 Mixed irritable bowel syndrome KAYLYN Pappas 04/07/2020 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 at [facility] * 10/05/2020 1:30 pm - Drea Garcia D.O. at [facility] Functional Status Description No Information Available Mental [...] a screening colonoscopy [facility] [address] [place], [place] [id number] [phone]
--- OUTSIDE RECORDS SUMMARY | 2020-05-22 16:01 | CCD | Continuity of Care Document ---
Author Author Nela KENDALL Organization [place] [address] Phone [phone] Care Team Providers Care Supervisory Investigative Specialist Name Role Phone Drea Garcia D.O. AUTM Lara Lopez M.D. AUTM [phone] Problems Active Problems Provider Date Paroxysmal atrial [...] caps in the morning Unknown Berberine Complex [phone] Capsules Unknown Chlorella Capsules Unknown Vitamin D-3 [...] O2 % BldC Oximetry 98 % [place] Body Weight 115 lb 06/24/2019 10:22am BP Systolic 128 mmHg BP Diastolic 74 mmHg Height 63 inches 5'3" Weight 139.50 lb BMI (Body Mass Index) 24.7 kg/m2 Heart Rate 77 /min Respiratory Rate 18 /min Body Temperature 98.8 F O2 % BldC Oximetry 98 % [place] Body Weight 115 lb Results Test Acquired Date Facility Test Result H/L Range Note Complete Blood Count 04/10/2020 [facility] Outpatient Test ing (Registration) [address] [place] [address] [phone] White Blood Count 5.9 10 Normal 4.0-10.0 [...] % Normal 0-0 Comprehensive Metabolic Profil 04/10/2020 [facility] Outpa tient Testing (Registration) [address] [place], [place] [address] [phone] Glucose, Fasting 84 mg/dL Normal 70-100 Blood [...] 1.5 Normal 1.2-2.2 Cardiac Marker Panel 04/10/2020 [facility] Outpatient Test ing (Registration) [address] [place] [address] [phone] CPK Creatine Phosphokinase 47 U/L Normal 26-19 2 CK-MB Value Mass 1.2 NG/ML Normal <3.6 MB/CK Relative Index 2.55 Normal < Or =4 2 Troponin I < 0.02 NG/ML Normal < 0.10 3 Istat PT/Inr 04/10/2020 [facility] Outpatient Testi ng (Registration) 0 [place] [address] [phone] iSTAT Protime Seconds 15.8 seconds High 12.1-14. 4 iSTAT Inr 1.3 Normal Laboratory test finding 04/10/2020 [facility] Outpatient T esting (Registration) [address] [place], [place] [id number] [phone] iSTAT Troponin 0.00 NG/ML Normal 0.00-0.08 Istat Chem8+ Panel 04/10/2020 [facility] Outpatient Testi ng (Registration) [address] [place], [place] 6[address]2579 [phone] iSTAT HCT 50.0 % Normal 38.0-51.0 iSTAT Glucose 132 mg/dL High 70-105 iSTAT Sodium 140 mEq/L Normal 136-145 iSTAT Potassium 4.1 mEq/L Normal 3.5-5.1 iSTAT CA++ 4.7 mg/dL Normal 4.5-5.3 iSTAT Chloride 101 mEq/L Normal 98-109 iSTAT Co2 29.0 MM/L High 23.0-27.0 iSTAT BUN 20 mg/dL Normal 8-26 iSTAT Creatinine 0.8 mg/dL Normal 0.6-1.3 Complete Blood Count 04/10/2020 [facility] Outpatient Test ing (Registration) [address] [place] [address] [phone] White Blood Count 5.9 10 Normal 4.0-10.0 [...] % Normal 0-0 Laboratory test finding 04/10/2020 [facility] Outpatient T esting (Registration) [address] [place] [address] [phone] Thyroid Stimulating Hormone 2.030 uIU/ML Normal 0. 358-3.740 Order 04/07/2020 In House Orders EKG see result in chart Prothrombin Time/Inr 03/30/2020 [facility] Outpatient Test ing (Registration) [address] [place] [id number] [phone] Prothrombin Time 14.3 seconds High 12.5-14.3 Inr 1.09 Normal 4 Laboratory test finding 03/30/2020 [facility] Outpatient T esting (Registration) [address] [place] [address] [phone] Partial Thromboplastin Time 30.0 seconds Normal 24 .2-38.5 Cardiac Marker Panel 03/30/2020 [facility] Outpatient Test ing (Registration) [address] [place] [address] [phone] CPK Creatine Phosphokinase 82 U/L Normal 26-19 2 CK-MB Value Mass 3.0 NG/ML Normal <3.6 MB/CK Relative Index 3.66 Normal < Or =4 5 Troponin I < 0.02 NG/ML Normal < 0.10 6 Liver Profile 03/30/2020 [facility] Outpatient Testi ng (Registration) [address] [place] [address] [phone] Ast/Sgot 63 U/L High 7-37 Alt/SGPT 100 U/L High 12-78 Alkaline Phosphatase 103 U/L Normal 45-117 Bilirubin,Total 0.6 mg/dL Normal 0.2-1.0 Bilirubin,Direct 0.2 mg/dL Normal 0.0-0.2 Total Protein 6.1 GM/DL Low 6.4-8.2 Albumin 3.6 GM/DL Normal 3.2-5.2 Albumin/Globulin Ratio 1.4 Normal 1.2-2.2 Basic Metabolic Profile 03/30/2020 [facility] Outpatient T esting (Registration) [address] [place] [address] [phone] Glucose, Fasting 80 mg/dL Normal 70-100 Blood [...] mg/dL Low 8.8-10.2 Laboratory test finding 03/30/2020 [facility] Outpatient T esting (Registration) [address] [place] [address] [phone] Thyroid Stimulating Hormone 2.050 uIU/ML Normal 0. 358-3.740 Free T4 1.30 ng/dL Normal 0.76-1.46 Digoxin Level 0.1 NG/ML Low 0.5-2.0 Laboratory test finding 03/30/2020 [facility] Outpatient T esting (Registration) [address] [place] [address] [phone] Magnesium Level 2.3 mg/dL Normal 1.8-2.4 Ethyl Alcohol (Ethanol) 0.003 % Normal 0.000-0.010 CBC With Differential 03/30/2020 [facility] Outpatient Patti ting (Registration) [address] [place] [address] [phone] White Blood Count 10.1 10 High 4.0-10.0 [...] 36.0-66.0 Lymph % 16.2 % Low 24.0-44.0 [place] % 9.0 % High 0.0-5.0 Eos % 0.1 % Normal 0.0-3.0 Baso % 0.4 % Normal 0.0-1.0 Immature Granulocyte % 0.3 % Normal 0-3.0 Nucleated Red Blood Cell % 0.0 % Normal 0-0 Neutrophils # 7.5 10 Normal 1.5-8.5 Lymph # 1.6 10 Normal 1.5-5.0 [place] # 0.9 10 High 0.0-0.8 Eos # 0.0 10 Normal 0.0-0.5 Baso # 0.0 10 Normal 0.0-0.2 1 Units are mL/min/1.73 m2 Chronic Kidney Disease Staging per NKF: Stage I & II GFR >=60 Normal to Mildly Decreased Stage III GFR 30-59 Moderately Decreased Stage IV GFR 15-29 Severely Decreased Stage V GFR <15 Very Little GFR Left ESRD GFR <15 on DERRICK FOLLOWER 2 DIAGNOSIS CRITERIA MMB ng/ml Relative Index (RI) NON-AMI < or = 5 N/A NGUYEN ZONE > 5 < or = 4 AMI > 5 > 4 3 Troponin I Reference Interva l for [place] LOCI: 99th Percentile= 0.00-0.045 ng/ml Risk Stratification: [...] 6 Troponin I Reference Interva l for [place] LOCI: 99th Percentile= 0.00-0.045 ng/ml Risk Stratification: [...] Little GFR Left ESRD GFR <15 on DERRICK FOLLOWER Procedures Date Code Description Status 04/07/2020 61436 Electrocardiogram Complete Compl eted Medical Devices Description No Information Available Encounters Type Date Location Provider Dx Diagnosis Office Visit 04/07/2020 10:40a [facility] KAYLYN Fraser I48.92 Unspecified atrial flutter K58.2 Mixed irritable bowel syndro me 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
--- OUTSIDE RECORDS SUMMARY | 2020-05-22 16:01 | CCD | Continuity of Care Document ---
Author Author Nela GARCIA Organization Unknown Address [address] [place] [address] Phone [phone] Care Team Providers Care Social Work Assistant Name Role Phone Drea Garcia D.O. AUTM Lara Lopez M.D. AUTM [phone] Problems Active Problems Provider Date Paroxysmal atrial [...] caps in the morning Unknown Berberine Complex [phone] Capsules Unknown Chlorella Capsules Unknown Vitamin D-3 [...] F O2 % BldC Oximetry 98 % [place] Body Weight 115 lb 06/24/2019 10:22am BP Systolic 128 mmHg BP Diastolic 74 mmHg Height 63 inches 5'3" Weight 139.50 lb BMI (Body Mass Index) 24.7 kg/m2 Heart Rate 77 /min Respiratory Rate 18 /min Body Temperature 98.8 F O2 % BldC Oximetry 98 % [place] Body Weight 115 lb Results Test Acquired Date Facility Test Result H/L Range Note Laboratory test finding 04/14/2020 [facility] Outpatient T esting (Registration) [address] [place] [address] [phone] iSTAT Troponin 0.38 NG/ML High 0.00-0.08 Istat Chem8+ Panel 04/14/2020 [facility] Outpatient Testi ng (Registration) [address] [place] [address] [phone] iSTAT HCT 48.0 % Normal 38.0-51.0 iSTAT Glucose 144 mg/dL High 70-105 iSTAT Sodium 138 mEq/L Normal 136-145 iSTAT Potassium 3.8 mEq/L Normal 3.5-5.1 iSTAT CA++ 4.4 mg/dL Low 4.5-5.3 iSTAT Chloride 104 mEq/L Normal 98-109 iSTAT Co2 25.0 MM/L Normal 23.0-27.0 iSTAT BUN 23 mg/dL Normal 8-26 iSTAT Creatinine 0.7 mg/dL Normal 0.6-1.3 CBC With Differential 04/14/2020 [facility] Outpatient Patti ting (Registration) [address] [place], [place] [address] [phone] White Blood Count 9.3 10 Normal 4.0-10.0 [...] 36.0-66.0 Lymph % 20.4 % Low 24.0-44.0 [place] % 9.3 % High 0.0-5.0 Eos % 0.9 % Normal 0.0-3.0 Baso % 0.3 % Normal 0.0-1.0 Immature Granulocyte % 0.4 % Normal 0-3.0 Nucleated Red Blood Cell % 0.0 % Normal 0-0 Neutrophils # 6.4 10 Normal 1.5-8.5 Lymph # 1.9 10 Normal 1.5-5.0 [place] # 0.9 10 High 0.0-0.8 Eos # 0.1 10 Normal 0.0-0.5 Baso # 0.0 10 Normal 0.0-0.2 Laboratory test finding 04/10/2020 [facility] Outpatient T silvia (Registration) [address] [place] [phone] Thyroid Stimulating Hormone 2.030 uIU/ML Normal 0. 358-3.740 Complete Blood Count 04/10/2020 [facility] Outpatient Test ing (Registration) [address] [place] [address] [phone] White Blood Count 5.9 10 Normal 4.0-10.0 [...] % Normal 0-0 Istat Chem8+ Panel 04/10/2020 [facility] Outpatient Testi ng (Registration) 0 [place] [address] [phone] iSTAT HCT 50.0 % Normal 38.0-51.0 iSTAT Glucose 132 mg/dL High 70-105 iSTAT Sodium 140 mEq/L Normal 136-145 iSTAT Potassium 4.1 mEq/L Normal 3.5-5.1 iSTAT CA++ 4.7 mg/dL Normal 4.5-5.3 iSTAT Chloride 101 mEq/L Normal 98-109 iSTAT Co2 29.0 MM/L High 23.0-27.0 iSTAT BUN 20 mg/dL Normal 8-26 iSTAT Creatinine 0.8 mg/dL Normal 0.6-1.3 Laboratory test finding 04/10/2020 [facility] Outpatient T esting (Registration) 0 [place] [address] [phone] iSTAT Troponin 0.00 NG/ML Normal 0.00-0.08 Istat PT/Inr 04/10/2020 [facility] Outpatient Testi ng (Registration) [address] [place] [address] [phone] iSTAT Protime Seconds 15.8 seconds High 12.1-14. 4 iSTAT Inr 1.3 Normal Cardiac Marker Panel 04/10/2020 [facility] Outpatient Test ing (Registration) [address] [place] [phone] CPK Creatine Phosphokinase 47 U/L Normal 26-19 2 CK-MB Value Mass 1.2 NG/ML Normal <3.6 MB/CK Relative Index 2.55 Normal < Or =4 1 Troponin I < 0.02 NG/ML Normal < 0.10 2 Comprehensive Metabolic Profil 04/10/2020 [facility] Outpa tient Testing (Registration) [address] [place] [address] [phone] Glucose, Fasting 84 mg/dL Normal 70-100 Blood [...] 1.5 Normal 1.2-2.2 Complete Blood Count 04/10/2020 [facility] Outpatient Test ing (Registration) [address] [place] [address] [phone] White Blood Count 5.9 10 Normal 4.0-10.0 [...] result in chart CBC With Differential 03/30/2020 [facility] Outpatient Patti ting (Registration) [address] [place] [address] [phone] White Blood Count 10.1 10 High 4.0-10.0 [...] 36.0-66.0 Lymph % 16.2 % Low 24.0-44.0 [place] % 9.0 % High 0.0-5.0 Eos % 0.1 % Normal 0.0-3.0 Baso % 0.4 % Normal 0.0-1.0 Immature Granulocyte % 0.3 % Normal 0-3.0 Nucleated Red Blood Cell % 0.0 % Normal 0-0 Neutrophils # 7.5 10 Normal 1.5-8.5 Lymph # 1.6 10 Normal 1.5-5.0 [place] # 0.9 10 High 0.0-0.8 Eos # 0.0 10 Normal 0.0-0.5 Baso # 0.0 10 Normal 0.0-0.2 Prothrombin Time/Inr 03/30/2020 [facility] Outpatient Test ing (Registration) [address] [place] [address] [phone] Prothrombin Time 14.3 seconds High 12.5-14.3 Inr 1.09 Normal 4 Laboratory test finding 03/30/2020 [facility] Outpatient T esting (Registration) [address] [place] [address] [phone] Partial Thromboplastin Time 30.0 seconds Normal 24 .2-38.5 Cardiac Marker Panel 03/30/2020 [facility] Outpatient Test ing (Registration) [address] [place] [address] [phone] CPK Creatine Phosphokinase 82 U/L Normal 26-19 2 CK-MB Value Mass 3.0 NG/ML Normal <3.6 MB/CK Relative Index 3.66 Normal < Or =4 5 Troponin I < 0.02 NG/ML Normal < 0.10 6 Liver Profile 03/30/2020 [facility] Outpatient Testi ng (Registration) [address] [place] [address] [phone] Ast/Sgot 63 U/L High 7-37 Alt/SGPT 100 U/L High 12-78 Alkaline Phosphatase 103 U/L Normal 45-117 Bilirubin,Total 0.6 mg/dL Normal 0.2-1.0 Bilirubin,Direct 0.2 mg/dL Normal 0.0-0.2 Total Protein 6.1 GM/DL Low 6.4-8.2 Albumin 3.6 GM/DL Normal 3.2-5.2 Albumin/Globulin Ratio 1.4 Normal 1.2-2.2 Basic Metabolic Profile 03/30/2020 [facility] Outpatient T esting (Registration) [address] [place] [address] [phone] Glucose, Fasting 80 mg/dL Normal 70-100 Blood [...] mg/dL Low 8.8-10.2 Laboratory test finding 03/30/2020 [facility] Outpatient T esting (Registration) [address] [place] [address] [phone] Thyroid Stimulating Hormone 2.050 uIU/ML Normal 0. 358-3.740 Free T4 1.30 ng/dL Normal 0.76-1.46 Digoxin Level 0.1 NG/ML Low 0.5-2.0 Laboratory test finding 03/30/2020 [facility] Outpatient T silvia (Registration) [address] [place] [address] [phone] Magnesium Level 2.3 mg/dL Normal 1.8-2.4 Ethyl Alcohol (Ethanol) 0.003 % Normal 0.000-0.010 1 DIAGNOSIS CRITERIA MMB ng/ml Relative Index (RI) NON-AMI < or = 5 N/A NGUYEN ZONE > 5 < or = 4 AMI > 5 > 4 2 Troponin I Reference Interva l for [employer]: 99th Percentile= 0.00-0.045 ng/ml Risk Stratification: <= [...] Little GFR Left ESRD GFR <15 on ANALYTICS LEADER 4 THERAPUTIC HUMAN INR VALUES INDICATIONS NORMAL [...] Troponin I Reference Interva l for [employer]: 99th Percentile= 0.00-0.045 ng/ml Risk Stratification: <= [...] Little GFR Left ESRD GFR <15 on ANALYTICS LEADER Procedures Date Code Description Status 04/07/2020 23427 Electrocardiogram Complete Compl eted Medical Devices Description No Information Available Encounters Type Date Location Provider Dx Diagnosis Office Visit 04/07/2020 10:40a [facility] KAYLYN Fraser I48.92 Unspecified atrial flutter K58.2 Mixed irritable bowel syndro wy 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 at [facility] * 10/05/2020 1:30 pm - Drea Garcia D.O. at [facility] Functional Status Description No Information Available Mental [...] a screening colonoscopy [facility] [address] [place], [place] [id number] [phone]
--- OUTSIDE RECORDS SUMMARY | 2020-05-22 16:01 | CCD | Continuity of Care Document ---
Author Author Nela GARCIA Organization Unknown Address [address] [place] [address] Phone [phone] Care Team Providers Care Wagon Driver Salesperson Name Role Phone Drea Garcia D.O. AUTM Lara Lopez M.D. AUTM [phone] Problems Active Problems Provider Date Paroxysmal atrial [...] caps in the morning Unknown Berberine Complex [phone] Capsules Unknown Chlorella Capsules Unknown Vitamin D-3 [...] F O2 % BldC Oximetry 98 % [place] Body Weight 115 lb 06/24/2019 10:22am BP Systolic 128 mmHg BP Diastolic 74 mmHg Height 63 inches 5'3" Weight 139.50 lb BMI (Body Mass Index) 24.7 kg/m2 Heart Rate 77 /min Respiratory Rate 18 /min Body Temperature 98.8 F O2 % BldC Oximetry 98 % [place] Body Weight 115 lb Results Test Acquired Date Facility Test Result H/L Range Note Complete Blood Count 04/10/2020 [facility] Outpatient Test ing (Registration) [address] [place] [address] [phone] White Blood Count 5.9 10 Normal 4.0-10.0 [...] % Normal 0-0 Comprehensive Metabolic Profil 04/10/2020 [facility] Outpa tient Testing (Registration) [address] [place] [address] [phone] Glucose, Fasting 84 mg/dL Normal 70-100 Blood [...] 1.5 Normal 1.2-2.2 Cardiac Marker Panel 04/10/2020 [facility] Outpatient Test ing (Registration) [address] [place], [place] [address] [phone] CPK Creatine Phosphokinase 47 U/L Normal 26-19 2 CK-MB Value Mass 1.2 NG/ML Normal <3.6 MB/CK Relative Index 2.55 Normal < Or =4 2 Troponin I < 0.02 NG/ML Normal < 0.10 3 Istat PT/Inr 04/10/2020 [facility] Outpatient Testi ng (Registration) [address] [place] [address] [phone] iSTAT Protime Seconds 15.8 seconds High 12.1-14. 4 iSTAT Inr 1.3 Normal Laboratory test finding 04/10/2020 [facility] Outpatient T esting (Registration) [address] [place] [address] [phone] iSTAT Troponin 0.00 NG/ML Normal 0.00-0.08 Istat Chem8+ Panel 04/10/2020 [facility] Outpatient Testi ng (Registration) [address] [place] [address] [phone] iSTAT HCT 50.0 % Normal 38.0-51.0 iSTAT Glucose 132 mg/dL High 70-105 iSTAT Sodium 140 mEq/L Normal 136-145 iSTAT Potassium 4.1 mEq/L Normal 3.5-5.1 iSTAT CA++ 4.7 mg/dL Normal 4.5-5.3 iSTAT Chloride 101 mEq/L Normal 98-109 iSTAT Co2 29.0 MM/L High 23.0-27.0 iSTAT BUN 20 mg/dL Normal 8-26 iSTAT Creatinine 0.8 mg/dL Normal 0.6-1.3 Complete Blood Count 04/10/2020 [facility] Outpatient Test ing (Registration) [address] [place] [address] [phone] White Blood Count 5.9 10 Normal 4.0-10.0 [...] % Normal 0-0 Laboratory test finding 04/10/2020 [facility] Outpatient T esting (Registration) [address] [place] [address] [phone] Thyroid Stimulating Hormone 2.030 uIU/ML Normal 0. 358-3.740 Order 04/07/2020 In House Orders EKG see result in chart Prothrombin Time/Inr 03/30/2020 [facility] Outpatient Test ing (Registration) [address] [place] [address] [phone] Prothrombin Time 14.3 seconds High 12.5-14.3 Inr 1.09 Normal 4 Laboratory test finding 03/30/2020 [facility] Outpatient T esting (Registration) [address] [place] [address] [phone] Partial Thromboplastin Time 30.0 seconds Normal 24 .2-38.5 Cardiac Marker Panel 03/30/2020 [facility] Outpatient Test ing (Registration) [address] [place] [address] [phone] CPK Creatine Phosphokinase 82 U/L Normal 26-19 2 CK-MB Value Mass 3.0 NG/ML Normal <3.6 MB/CK Relative Index 3.66 Normal < Or =4 5 Troponin I < 0.02 NG/ML Normal < 0.10 6 Liver Profile 03/30/2020 [facility] Outpatient Testi ng (Registration) [address] [place] [address] [phone] Ast/Sgot 63 U/L High 7-37 Alt/SGPT 100 U/L High 12-78 Alkaline Phosphatase 103 U/L Normal 45-117 Bilirubin,Total 0.6 mg/dL Normal 0.2-1.0 Bilirubin,Direct 0.2 mg/dL Normal 0.0-0.2 Total Protein 6.1 GM/DL Low 6.4-8.2 Albumin 3.6 GM/DL Normal 3.2-5.2 Albumin/Globulin Ratio 1.4 Normal 1.2-2.2 Basic Metabolic Profile 03/30/2020 [facility] Outpatient T esting (Registration) [address] [place] [address] [phone] Glucose, Fasting 80 mg/dL Normal 70-100 Blood [...] mg/dL Low 8.8-10.2 Laboratory test finding 03/30/2020 [facility] Outpatient T esting (Registration) [address] [place] [address] [phone] Thyroid Stimulating Hormone 2.050 uIU/ML Normal 0. 358-3.740 Free T4 1.30 ng/dL Normal 0.76-1.46 Digoxin Level 0.1 NG/ML Low 0.5-2.0 Laboratory test finding 03/30/2020 [facility] Outpatient T esting (Registration) [address] [place] [address] [phone] Magnesium Level 2.3 mg/dL Normal 1.8-2.4 Ethyl Alcohol (Ethanol) 0.003 % Normal 0.000-0.010 CBC With Differential 03/30/2020 [facility] Outpatient Patti ting (Registration) [address] [place] [address] [phone] White Blood Count 10.1 10 High 4.0-10.0 [...] 36.0-66.0 Lymph % 16.2 % Low 24.0-44.0 [place] % 9.0 % High 0.0-5.0 Eos % 0.1 % Normal 0.0-3.0 Baso % 0.4 % Normal 0.0-1.0 Immature Granulocyte % 0.3 % Normal 0-3.0 Nucleated Red Blood Cell % 0.0 % Normal 0-0 Neutrophils # 7.5 10 Normal 1.5-8.5 Lymph # 1.6 10 Normal 1.5-5.0 [place] # 0.9 10 High 0.0-0.8 Eos # 0.0 10 Normal 0.0-0.5 Baso # 0.0 10 Normal 0.0-0.2 1 Units are mL/min/1.73 m2 Chronic Kidney Disease Staging per NKF: Stage I & II GFR >=60 Normal to Mildly Decreased Stage III GFR 30-59 Moderately Decreased Stage IV GFR 15-29 Severely Decreased Stage V GFR <15 Very Little GFR Left ESRD GFR <15 on MANAGER QUALITY IMPROVEMENT 2 DIAGNOSIS CRITERIA MMB ng/ml Relative Index (RI) NON-AMI < or = 5 N/A NGUYEN ZONE > 5 < or = 4 AMI > 5 > 4 3 Troponin I Reference Interva l for [place] LOCI: 99th Percentile= 0.00-0.045 ng/ml Risk Stratification: [...] 6 Troponin I Reference Interva l for [place] LOCI: 99th Percentile= 0.00-0.045 ng/ml Risk Stratification: [...] Little GFR Left ESRD GFR <15 on MANAGER QUALITY IMPROVEMENT Procedures Date Code Description Status 04/07/2020 44233 Electrocardiogram Complete Compl eted Medical Devices Description No Information Available Encounters Type Date Location Provider Dx Diagnosis Office Visit 04/07/2020 10:40a [facility] KAYLYN Fraser I48.92 Unspecified atrial flutter K58.2 Mixed irritable bowel syndro me 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
--- OUTSIDE RECORDS SUMMARY | 2020-05-22 16:02 | CCD | Continuity of Care Document ---
Author Author Nela GARCIA Organization Unknown Address [address] [place] [address] Phone [phone] Care Team Providers Care Clinical Cytogeneticist Scientist Name Role Phone Drea Garcia D.O. AUTM [phone] Lara Lopez M.D. AUTM [phone] Problems Active Problems Provider Date Paroxysmal atrial [...] caps in the morning Unknown Berberine Complex [id number] Capsules Unknown Chlorella Capsules Unknown Vitamin D-3 [...] F O2 % BldC Oximetry 98 % [place] Body Weight 115 lb 06/24/2019 10:22am BP Systolic 128 mmHg BP Diastolic 74 mmHg Height 63 inches 5'3" Weight 139.50 lb BMI (Body Mass Index) 24.7 kg/m2 Heart Rate 77 /min Respiratory Rate 18 /min Body Temperature 98.8 F O2 % BldC Oximetry 98 % [place] Body Weight 115 lb Results Test Acquired Date Facility Test Result H/L Range Note Complete Blood Count 04/10/2020 [facility] Outpatient Test ing (Registration) [address] [place] [address] [phone] White Blood Count 5.9 10 Normal 4.0-10.0 [...] [facility] Outpa tient Testing (Registration) [address] [place] [address] [phone] Glucose, Fasting 84 mg/dL Normal 70-100 Blood [...] [facility] Outpatient Test ing (Registration) [address] [place], [place] [id number] [phone] CPK Creatine Phosphokinase 47 U/L Normal 26-19 2 CK-MB Value Mass 1.2 NG/ML Normal <3.6 MB/CK Relative Index 2.55 Normal < Or =4 2 Troponin I < 0.02 NG/ML Normal < 0.10 3 Istat PT/Inr 04/10/2020 [facility] Outpatient Testi ng (Registration) [address] [place] [address] [phone] iSTAT Protime Seconds 15.8 seconds High 12.1-14. 4 iSTAT Inr 1.3 Normal Laboratory test finding 04/10/2020 [facility] Outpatient T esting (Registration) [address] [place] [address] [phone] iSTAT Troponin 0.00 NG/ML Normal 0.00-0.08 Istat Chem8+ Panel 04/10/2020 [facility] Outpatient Testi ng (Registration) [address] [place] [address] [phone] iSTAT HCT 50.0 % Normal 38.0-51.0 iSTAT [...] [facility] Outpatient Test ing (Registration) [address] [place] [address] [phone] White Blood Count 5.9 10 Normal 4.0-10.0 [...] [facility] Outpatient T esting (Registration) [address] [place] [address] [phone] Thyroid Stimulating Hormone 2.030 uIU/ML Normal 0. 358-3.740 Order 04/07/2020 In House Orders EKG see result in chart Prothrombin Time/Inr 03/30/2020 [facility] Outpatient Test ing (Registration) [address] [place] [address] [phone] Prothrombin Time 14.3 seconds High 12.5-14.3 Inr 1.09 Normal 4 Laboratory test finding 03/30/2020 [facility] Outpatient T esting (Registration) [address] [place] [address] [phone] Partial Thromboplastin Time 30.0 seconds Normal 24 .2-38.5 Cardiac Marker Panel 03/30/2020 [facility] Outpatient Test ing (Registration) [address] [place] [address] [phone] CPK Creatine Phosphokinase 82 U/L Normal 26-19 2 CK-MB Value Mass 3.0 NG/ML Normal <3.6 MB/CK Relative Index 3.66 Normal < Or =4 5 Troponin I < 0.02 NG/ML Normal < 0.10 6 Liver Profile 03/30/2020 [facility] Outpatient Testi ng (Registration) [address] [place] [address] [phone] Ast/Sgot 63 U/L High 7-37 Alt/SGPT 100 U/L High 12-78 Alkaline Phosphatase 103 U/L Normal 45-117 Bilirubin,Total 0.6 mg/dL Normal 0.2-1.0 Bilirubin,Direct 0.2 mg/dL Normal 0.0-0.2 Total Protein 6.1 GM/DL Low 6.4-8.2 Albumin 3.6 GM/DL Normal 3.2-5.2 Albumin/Globulin Ratio 1.4 Normal 1.2-2.2 Basic Metabolic Profile 03/30/2020 [facility] Outpatient T esting (Registration) [address] [place] [address] [phone] Glucose, Fasting 80 mg/dL Normal 70-100 Blood [...] [facility] [address] [place] [address] [phone] Thyroid Stimulating Hormone 2.050 uIU/ML Normal 0. 358-3.740 Free T4 1.30 ng/dL Normal 0.76-1.46 Digoxin Level 0.1 NG/ML Low 0.5-2.0 Laboratory test finding 03/30/2020 [facility] Outpatient T esting (Registration) [address] [place] [address] [phone] Magnesium Level 2.3 mg/dL Normal 1.8-2.4 Ethyl Alcohol (Ethanol) 0.003 % Normal 0.000-0.010 CBC With Differential 03/30/2020 [facility] Outpatient Patti ting (Registration) [address] [place] [address] [phone] White Blood Count 10.1 10 High 4.0-10.0 [...] 36.0-66.0 Lymph % 16.2 % Low 24.0-44.0 [place] % 9.0 % High 0.0-5.0 Eos % 0.1 % Normal 0.0-3.0 Baso % 0.4 % Normal 0.0-1.0 Immature Granulocyte % 0.3 % Normal 0-3.0 Nucleated Red Blood Cell % 0.0 % Normal 0-0 Neutrophils # 7.5 10 Normal 1.5-8.5 Lymph # 1.6 10 Normal 1.5-5.0 [place] # 0.9 10 High 0.0-0.8 Eos # 0.0 10 Normal 0.0-0.5 Baso # 0.0 10 Normal 0.0-0.2 1 Units are mL/min/1.73 m2 Chronic Kidney Disease Staging per NKF: Stage I & II GFR >=60 Normal to Mildly Decreased Stage III GFR 30-59 Moderately Decreased Stage IV GFR 15-29 Severely Decreased Stage V GFR <15 Very Little GFR Left ESRD GFR <15 on CABLE ENGINEER 2 DIAGNOSIS CRITERIA MMB ng/ml Relative Index (RI) NON-AMI < or = 5 N/A NGUYEN ZONE > 5 < or = 4 AMI > 5 > 4 3 Troponin I Reference Interva l for [employer] LOCI: 99th Percentile= 0.00-0.045 ng/ml Risk Stratification: [...] 6 Troponin I Reference Interva l for [employer] LOCI: 99th Percentile= 0.00-0.045 ng/ml Risk Stratification: [...] Little GFR Left ESRD GFR <15 on CABLE ENGINEER Procedures Date Code Description Status 04/07/2020 64663 Electrocardiogram Complete Compl eted Medical Devices Description No Information Available Encounters Type Date Location Provider Dx Diagnosis Office Visit 04/07/2020 10:40a [facility] KAYLYN Fraser I48.92 Unspecified atrial flutter K58.2 Mixed irritable bowel syndro me 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 at [facility] Functional Status Description No Information Available [...] a screening colonoscopy [facility] [address] [place] [address] [phone]
--- OUTSIDE RECORDS SUMMARY | 2020-05-22 16:02 | CCD | Continuity of Care Document ---
Author Author Nela GARCIA Organization Unknown Address [address] [place] [address] Phone [phone] Care Team Providers Care Digital Ad Trafficker Name Role Phone Drea Garcia D.O. AUTM Lara Lopez M.D. AUTM [phone] Problems Active Problems Provider Date Paroxysmal atrial [...] caps in the morning Unknown Berberine Complex [id number] Capsules Unknown Chlorella Capsules Unknown Vitamin D-3 [...] F O2 % BldC Oximetry 98 % [place] Body Weight 115 lb 06/24/2019 10:22am BP Systolic 128 mmHg BP Diastolic 74 mmHg Height 63 inches 5'3" Weight 139.50 lb BMI (Body Mass Index) 24.7 kg/m2 Heart Rate 77 /min Respiratory Rate 18 /min Body Temperature 98.8 F O2 % BldC Oximetry 98 % [place] Body Weight 115 lb Results Test Acquired Date Facility Test Result H/L Range Note Complete Blood Count 04/10/2020 [facility] Outpatient Test ing (Registration) [address] [place] [address] [phone] White Blood Count 5.9 10 Normal 4.0-10.0 [...] % Normal 0-0 Comprehensive Metabolic Profil 04/10/2020 [facility] Outpa tient Testing (Registration) [address] [place] [address] [phone] Glucose, Fasting 84 mg/dL Normal 70-100 Blood [...] 1.5 Normal 1.2-2.2 Cardiac Marker Panel 04/10/2020 [facility] Outpatient Test ing (Registration) [address] [place], [place] [address] [phone] CPK Creatine Phosphokinase 47 U/L Normal 26-19 2 CK-MB Value Mass 1.2 NG/ML Normal <3.6 MB/CK Relative Index 2.55 Normal < Or =4 2 Troponin I < 0.02 NG/ML Normal < 0.10 3 Istat PT/Inr 04/10/2020 [facility] Outpatient Testi ng (Registration) [address] [place] [address] [phone] iSTAT Protime Seconds 15.8 seconds High 12.1-14. 4 iSTAT Inr 1.3 Normal Laboratory test finding 04/10/2020 [facility] Outpatient T esting (Registration) [address] [place] [address] [phone] iSTAT Troponin 0.00 NG/ML Normal 0.00-0.08 Istat Chem8+ Panel 04/10/2020 [facility] Outpatient Testi ng (Registration) [address] [place] [address] [phone] iSTAT HCT 50.0 % Normal 38.0-51.0 iSTAT Glucose 132 mg/dL High 70-105 iSTAT Sodium 140 mEq/L Normal 136-145 iSTAT Potassium 4.1 mEq/L Normal 3.5-5.1 iSTAT CA++ 4.7 mg/dL Normal 4.5-5.3 iSTAT Chloride 101 mEq/L Normal 98-109 iSTAT Co2 29.0 MM/L High 23.0-27.0 iSTAT BUN 20 mg/dL Normal 8-26 iSTAT Creatinine 0.8 mg/dL Normal 0.6-1.3 Complete Blood Count 04/10/2020 [facility] Outpatient Test ing (Registration) [address] [place] [address] [phone] White Blood Count 5.9 10 Normal 4.0-10.0 [...] % Normal 0-0 Laboratory test finding 04/10/2020 [facility] Outpatient T esting (Registration) [address] [place] [address] [phone] Thyroid Stimulating Hormone 2.030 uIU/ML Normal 0. 358-3.740 Order 04/07/2020 In House Orders EKG see result in chart Prothrombin Time/Inr 03/30/2020 [facility] Outpatient Test ing (Registration) [address] [place] [address] [phone] Prothrombin Time 14.3 seconds High 12.5-14.3 Inr 1.09 Normal 4 Laboratory test finding 03/30/2020 [facility] Outpatient T esting (Registration) [address] [place] [address] [phone] Partial Thromboplastin Time 30.0 seconds Normal 24 .2-38.5 Cardiac Marker Panel 03/30/2020 [facility] Outpatient Test ing (Registration) [address] [place] [address] [phone] CPK Creatine Phosphokinase 82 U/L Normal 26-19 2 CK-MB Value Mass 3.0 NG/ML Normal <3.6 MB/CK Relative Index 3.66 Normal < Or =4 5 Troponin I < 0.02 NG/ML Normal < 0.10 6 Liver Profile 03/30/2020 [facility] Outpatient Testi ng (Registration) [address] [place] [address] [phone] Ast/Sgot 63 U/L High 7-37 Alt/SGPT 100 U/L High 12-78 Alkaline Phosphatase 103 U/L Normal 45-117 Bilirubin,Total 0.6 mg/dL Normal 0.2-1.0 Bilirubin,Direct 0.2 mg/dL Normal 0.0-0.2 Total Protein 6.1 GM/DL Low 6.4-8.2 Albumin 3.6 GM/DL Normal 3.2-5.2 Albumin/Globulin Ratio 1.4 Normal 1.2-2.2 Basic Metabolic Profile 03/30/2020 [facility] Outpatient T esting (Registration) [address] [place] [address] [phone] Glucose, Fasting 80 mg/dL Normal 70-100 Blood [...] mg/dL Low 8.8-10.2 Laboratory test finding 03/30/2020 [facility] Outpatient T esting (Registration) [address] [place] [address] [phone] Thyroid Stimulating Hormone 2.050 uIU/ML Normal 0. 358-3.740 Free T4 1.30 ng/dL Normal 0.76-1.46 Digoxin Level 0.1 NG/ML Low 0.5-2.0 Laboratory test finding 03/30/2020 [facility] Outpatient T esting (Registration) [address] [place] [address] [phone] Magnesium Level 2.3 mg/dL Normal 1.8-2.4 Ethyl Alcohol (Ethanol) 0.003 % Normal 0.000-0.010 CBC With Differential 03/30/2020 [facility] Outpatient Patti ting (Registration) [address] [place] [address] [phone] White Blood Count 10.1 10 High 4.0-10.0 [...] 36.0-66.0 Lymph % 16.2 % Low 24.0-44.0 [place] % 9.0 % High 0.0-5.0 Eos % 0.1 % Normal 0.0-3.0 Baso % 0.4 % Normal 0.0-1.0 Immature Granulocyte % 0.3 % Normal 0-3.0 Nucleated Red Blood Cell % 0.0 % Normal 0-0 Neutrophils # 7.5 10 Normal 1.5-8.5 Lymph # 1.6 10 Normal 1.5-5.0 [place] # 0.9 10 High 0.0-0.8 Eos # 0.0 10 Normal 0.0-0.5 Baso # 0.0 10 Normal 0.0-0.2 1 Units are mL/min/1.73 m2 Chronic Kidney Disease Staging per NKF: Stage I & II GFR >=60 Normal to Mildly Decreased Stage III GFR 30-59 Moderately Decreased Stage IV GFR 15-29 Severely Decreased Stage V GFR <15 Very Little GFR Left ESRD GFR <15 on [place]AND 2 DIAGNOSIS CRITERIA MMB ng/ml Relative Index (RI) NON-AMI < or = 5 N/A NGUYEN ZONE > 5 < or = 4 AMI > 5 > 4 3 Troponin I Reference Interva l for [employer] LOCI: 99th Percentile= 0.00-0.045 ng/ml Risk Stratification: [...] 6 Troponin I Reference Interva l for [employer] LOCI: 99th Percentile= 0.00-0.045 ng/ml Risk Stratification: [...] Little GFR Left ESRD GFR <15 on DECKHAND Procedures Date Code Description Status 04/07/2020 85521 Electrocardiogram Complete Compl eted Medical Devices Description No Information Available Encounters Type Date Location Provider Dx Diagnosis Office Visit 04/07/2020 10:40a [facility] KAYLYN Fraser I48.92 Unspecified atrial flutter K58.2 Mixed irritable bowel syndro me 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 at [facility] Functional Status Description No Information Available [...] a screening colonoscopy [facility] [address] [place] [address] [phone]
--- OUTSIDE RECORDS SUMMARY | 2020-05-22 16:02 | CCD | Continuity of Care Document ---
Author Author Nela GARCIA Organization Unknown Address [address] [place] [address] Phone [phone] Care Team Providers Care Leather Whitener Name Role Phone Drea Garcia D.O. AUTM Lara Lopez M.D. AUTM [phone] Problems Active Problems Provider Date Paroxysmal atrial [...] caps in the morning Unknown Berberine Complex [id number] Capsules Unknown Chlorella Capsules Unknown Vitamin D-3 [...] F O2 % BldC Oximetry 98 % [place] Body Weight 115 lb 06/24/2019 10:22am BP Systolic 128 mmHg BP Diastolic 74 mmHg Height 63 inches 5'3" Weight 139.50 lb BMI (Body Mass Index) 24.7 kg/m2 Heart Rate 77 /min Respiratory Rate 18 /min Body Temperature 98.8 F O2 % BldC Oximetry 98 % [place] Body Weight 115 lb Results Test Acquired Date Facility Test Result H/L Range Note Complete Blood Count 04/10/2020 [facility] Outpatient Test ing (Registration) [address] [place] [address] [phone] White Blood Count 5.9 10 Normal 4.0-10.0 [...] % Normal 0-0 Comprehensive Metabolic Profil 04/10/2020 [facility] Outpa tient Testing (Registration) [address] [place] [address] [phone] Glucose, Fasting 84 mg/dL Normal 70-100 Blood [...] 1.5 Normal 1.2-2.2 Cardiac Marker Panel 04/10/2020 [facility] Outpatient Test ing (Registration) [address] [place], [place] [address] [phone] CPK Creatine Phosphokinase 47 U/L Normal 26-19 2 CK-MB Value Mass 1.2 NG/ML Normal <3.6 MB/CK Relative Index 2.55 Normal < Or =4 2 Troponin I < 0.02 NG/ML Normal < 0.10 3 Istat PT/Inr 04/10/2020 [facility] Outpatient Testi ng (Registration) [address] [place] [address] [phone] iSTAT Protime Seconds 15.8 seconds High 12.1-14. 4 iSTAT Inr 1.3 Normal Laboratory test finding 04/10/2020 [facility] Outpatient T esting (Registration) [address] [place] [address] [phone] iSTAT Troponin 0.00 NG/ML Normal 0.00-0.08 Istat Chem8+ Panel 04/10/2020 [facility] Outpatient Testi ng (Registration) [address] [place] [address] [phone] iSTAT HCT 50.0 % Normal 38.0-51.0 iSTAT Glucose 132 mg/dL High 70-105 iSTAT Sodium 140 mEq/L Normal 136-145 iSTAT Potassium 4.1 mEq/L Normal 3.5-5.1 iSTAT CA++ 4.7 mg/dL Normal 4.5-5.3 iSTAT Chloride 101 mEq/L Normal 98-109 iSTAT Co2 29.0 MM/L High 23.0-27.0 iSTAT BUN 20 mg/dL Normal 8-26 iSTAT Creatinine 0.8 mg/dL Normal 0.6-1.3 Complete Blood Count 04/10/2020 [facility] Outpatient Test ing (Registration) [address] [place] [phone] White Blood Count 5.9 10 Normal 4.0-10.0 [...] % Normal 0-0 Laboratory test finding 04/10/2020 [facility] Outpatient T esting (Registration) [address] [place] [address] [phone] Thyroid Stimulating Hormone 2.030 uIU/ML Normal 0. 358-3.740 Order 04/07/2020 In House Orders EKG see result in chart Prothrombin Time/Inr 03/30/2020 [facility] Outpatient Test ing (Registration) [address] [place] [address] [phone] Prothrombin Time 14.3 seconds High 12.5-14.3 Inr 1.09 Normal 4 Laboratory test finding 03/30/2020 [facility] Outpatient T esting (Registration) [address] [place] [address] [phone] Partial Thromboplastin Time 30.0 seconds Normal 24 .2-38.5 Cardiac Marker Panel 03/30/2020 [facility] Outpatient Test ing (Registration) [address] [place] [address] [phone] CPK Creatine Phosphokinase 82 U/L Normal 26-19 2 CK-MB Value Mass 3.0 NG/ML Normal <3.6 MB/CK Relative Index 3.66 Normal < Or =4 5 Troponin I < 0.02 NG/ML Normal < 0.10 6 Liver Profile 03/30/2020 [facility] Outpatient Testi ng (Registration) [address] [place] [address] [phone] Ast/Sgot 63 U/L High 7-37 Alt/SGPT 100 U/L High 12-78 Alkaline Phosphatase 103 U/L Normal 45-117 Bilirubin,Total 0.6 mg/dL Normal 0.2-1.0 Bilirubin,Direct 0.2 mg/dL Normal 0.0-0.2 Total Protein 6.1 GM/DL Low 6.4-8.2 Albumin 3.6 GM/DL Normal 3.2-5.2 Albumin/Globulin Ratio 1.4 Normal 1.2-2.2 Basic Metabolic Profile 03/30/2020 [facility] Outpatient T esting (Registration) [address] [place] [address] [phone] Glucose, Fasting 80 mg/dL Normal 70-100 Blood [...] mg/dL Low 8.8-10.2 Laboratory test finding 03/30/2020 [facility] Outpatient T esting (Registration) [address] [place] [address] [phone] Thyroid Stimulating Hormone 2.050 uIU/ML Normal 0. 358-3.740 Free T4 1.30 ng/dL Normal 0.76-1.46 Digoxin Level 0.1 NG/ML Low 0.5-2.0 Laboratory test finding 03/30/2020 [facility] Outpatient T esting (Registration) [address] [place] [address] [phone] Magnesium Level 2.3 mg/dL Normal 1.8-2.4 Ethyl Alcohol (Ethanol) 0.003 % Normal 0.000-0.010 CBC With Differential 03/30/2020 [facility] Outpatient Patti ting (Registration) [address] [place] [address] [phone] White Blood Count 10.1 10 High 4.0-10.0 [...] 36.0-66.0 Lymph % 16.2 % Low 24.0-44.0 [place] % 9.0 % High 0.0-5.0 Eos % 0.1 % Normal 0.0-3.0 Baso % 0.4 % Normal 0.0-1.0 Immature Granulocyte % 0.3 % Normal 0-3.0 Nucleated Red Blood Cell % 0.0 % Normal 0-0 Neutrophils # 7.5 10 Normal 1.5-8.5 Lymph # 1.6 10 Normal 1.5-5.0 [place] # 0.9 10 High 0.0-0.8 Eos # 0.0 10 Normal 0.0-0.5 Baso # 0.0 10 Normal 0.0-0.2 1 Units are mL/min/1.73 m2 Chronic Kidney Disease Staging per NKF: Stage I & II GFR >=60 Normal to Mildly Decreased Stage III GFR 30-59 Moderately Decreased Stage IV GFR 15-29 Severely Decreased Stage V GFR <15 Very Little GFR Left ESRD GFR <15 on PEDIATRICIAN/MEDICAL DOCTOR 2 DIAGNOSIS CRITERIA MMB ng/ml Relative Index (RI) NON-AMI < or = 5 N/A NGUYEN ZONE > 5 < or = 4 AMI > 5 > 4 3 Troponin I Reference Interva l for [employer] LOCI: 99th Percentile= 0.00-0.045 ng/ml Risk Stratification: [...] 6 Troponin I Reference Interva l for [employer] LOCI: 99th Percentile= 0.00-0.045 ng/ml Risk Stratification: [...] Little GFR Left ESRD GFR <15 on PEDIATRICIAN/MEDICAL DOCTOR Procedures Date Code Description Status 04/07/2020 98410 Electrocardiogram Complete Compl eted Medical Devices Description No Information Available Encounters Type Date Location Provider Dx Diagnosis Office Visit 04/07/2020 10:40a [facility] KAYLYN Fraser I48.92 Unspecified atrial flutter K58.2 Mixed irritable bowel syndro me 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 at [facility] Functional Status Description No Information Available Mental [...] a screening colonoscopy [facility] [address] [place] [address] [phone]
--- OUTSIDE RECORDS SUMMARY | 2020-05-22 16:03 | CCD ---
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 [employer] Name Role Phone ANTECOL, Sabine YOUNG MD Unavailable Unavailable ANTECOL, Sabine YOUNG MD Unavailable Unavailable ANTECOL, Sabine YOUNG MD Unavailable Unavailable ANTECOL, Sabine YOUNG MD Unavailable Unavailable ANTECOL, Sabine YOUNG MD Unavailable Unavailable ANTECOL, Sabine YOUNG MD Unavailable Unavailable ANTECOL, Sabine YOUNG MD Unavailable Unavailable ANTECOL, Sabine YOUNG MD Unavailable Unavailable ANTECOL, Sabine YOUNG MD Unavailable Unavailable ANTECOL, Sabine YOUNG MD Unavailable Unavailable ANTECOL, Sabine YOUNG MD Unavailable Unavailable ANTECOL, Sabine YOUNG MD Unavailable Unavailable ANTECOL, Sabine YOUNG MD Unavailable Unavailable ANTECOL, Sabine YOUNG MD Unavailable Unavailable ANTECOL, Sabine YOUNG MD Unavailable Unavailable ANTECOL, Sabine YOUNG MD Unavailable Unavailable ANTECOL, Sabine YOUNG MD Unavailable Unavailable ANTECOL, Sabine YOUNG MD Unavailable Unavailable ANTECOL, Sabine YOUNG MD Unavailable Unavailable ANTECOL, Sabine YOUNG MD Unavailable Unavailable ANTECOL, Sabine YOUNG MD Unavailable Unavailable ANTECOL, Sabine YOUNG MD Unavailable Unavailable ANTECOL, Sabine YOUNG MD Unavailable Unavailable ANTECOL, Sabine YOUNG MD Unavailable Unavailable ANTECOL, Sabine YOUNG MD Unavailable Unavailable ANTECOLSabine MD Unavailable Unavailable ANTECOLSabine MD Unavailable Unavailable ANTECOLSabine MD Unavailable Unavailable ANTECOLSabine MD Unavailable Unavailable ANTECOL, Sabine YOUNG MD Unavailable Unavailable ANTECOL, Sabine YOUNG MD Unavailable Unavailable ANTECOL, Sabine YOUNG MD Unavailable Unavailable ANTECOL, Sabine YOUNG MD Unavailable Unavailable ANTECOL, Sabine YOUNG MD Unavailable Unavailable ANTECOL, Sabine YOUNG MD Unavailable Unavailable ANTECOL, Sabine YOUNG MD Unavailable Unavailable ANTECOL, Sabine YOUNG MD Unavailable Unavailable ANTECOL, Sabine YOUNG MD Unavailable Unavailable ANTECOL, Sabine YOUNG MD Unavailable Unavailable ANTECOL, Sabine YOUNG MD Unavailable Unavailable ANTECOL, Sabine YOUNG MD Unavailable Unavailable ANTECOL, Sabine YOUNG MD Unavailable Unavailable ANTECOL, Sabine YOUNG MD Unavailable Unavailable ANTECOL, Sabine YOUNG MD Unavailable Unavailable ANTECOL, Sabine YOUNG MD Unavailable Unavailable ANTECOL, Sabine YOUNG MD Unavailable Unavailable ANTECOL, Sabine YOUNG MD Unavailable Unavailable ANTECOL, Sabine YOUNG MD Unavailable Unavailable ANTECOL, Sabine YOUNG MD Unavailable Unavailable ANTECOL, Sabine YOUNG MD Unavailable Unavailable ANTECOL, Sabine YOUNG MD Unavailable Unavailable ANTECOL, Sabine YOUNG MD Unavailable Unavailable ANTECOL, Sabine YOUNG MD Unavailable Unavailable ANTECOL, Sabine YOUNG MD Unavailable Unavailable ANTECOL, Sabine YOUNG MD Unavailable Unavailable Rikki, L Robina PA Unavailable Unavailable Rikki, L Robina PA Unavailable Unavailable Rikki, L Robina PA Unavailable Unavailable Rikki, L Robina PA Unavailable Unavailable Rikki, L Robina PA Unavailable Unavailable Rikki, L Robina PA Unavailable Unavailable Rikki, L Robina PA Unavailable Unavailable Rikki, L Robina PA Unavailable Unavailable Rikki, L Robina PA Unavailable Unavailable Rikki, L Robina PA Unavailable Unavailable Rikki, L Robina PA Unavailable Unavailable Rikki, L Robina PA Unavailable Unavailable Rikki, L Robina PA Unavailable Unavailable Rikki, L Robina PA Unavailable Unavailable Rikki, L Robina PA Unavailable Unavailable Rikki, L Robina PA Unavailable Unavailable Rikki, L Robina PA Unavailable Unavailable Rikki, L Robina PA Unavailable Unavailable Rikki, L Robina PA Unavailable Unavailable Rikki, L Robina PA Unavailable Unavailable Rikki, L Robina PA Unavailable Unavailable Rikki, L Robina PA Unavailable Unavailable Rikki, L Robina PA Unavailable Unavailable MARK-DON, DAVE DO Unavailable Unavailable MARK-DON, DAVE DO Unavailable Unavailable MARK-DON, DAVE DO Unavailable Unavailable MARK-DON, DAVE DO Unavailable Unavailable MARK-DON, DAVE DO Unavailable Unavailable MARK-DON, DAVE DO Unavailable Unavailable MARK-DON, DAVE DO Unavailable Unavailable MARK-DON, DAVE DO Unavailable Unavailable MARK-DON, DAVE DO Unavailable Unavailable MARK-DON, DAVE DO Unavailable Unavailable MARK-DON, DAVE DO Unavailable Unavailable MARK-DON, DAVE DO Unavailable Unavailable MARK-DON, DAVE DO Unavailable Unavailable MARK-DON, DAVE DO Unavailable Unavailable MARK-DON, DAVE DO Unavailable Unavailable MARK-DON, DAVE DO Unavailable Unavailable MARK-DON, DAVE DO Unavailable Unavailable MARK-DON, DAVE DO Unavailable Unavailable MARK-DON, DAVE DO Unavailable Unavailable MARK-DON, DAVE DO Unavailable Unavailable MARK-DON, DAVE DO Unavailable Unavailable MARK-DON, DAVE DO Unavailable Unavailable MARK-DON, DAVE DO Unavailable Unavailable MARK-DON, DAVE DO Unavailable Unavailable MARK-DON, DAVE DO Unavailable Unavailable MARK-DON, DAVE DO Unavailable Unavailable MARK-DON, DAVE DO Unavailable Unavailable MARK-DON, DAVE DO Unavailable Unavailable MARK-DON, DAVE DO Unavailable Unavailable MARK-DON, DAVE DO Unavailable Unavailable MARK-DON, DAVE DO Unavailable Unavailable MARK-DON, DAVE DO Unavailable Unavailable MARK-DON, DAVE DO Unavailable Unavailable MARK-DON, DAVE DO Unavailable Unavailable MARK-DON, DAVE DO Unavailable Unavailable MARK-DON, DAVE DO Unavailable Unavailable MARK-DON, DAVE DO Unavailable Unavailable MARK-DON, DAVE DO Unavailable Unavailable MARK-DON, DAVE DO Unavailable Unavailable MARK-DON, DAVE DO Unavailable Unavailable MARK-DON, DAVE DO Unavailable Unavailable MARK-DON, DAVE DO Unavailable Unavailable MARK-DON, DAVE DO Unavailable Unavailable MARK-DON, DAVE DO Unavailable Unavailable MARK-DON, DAVE DO Unavailable Unavailable MARK-DON, DAVE DO Unavailable Unavailable MARK-DON, DAVE DO Unavailable Unavailable MARK-DON, DAVE DO Unavailable Unavailable MARK-DON, DAVE DO Unavailable Unavailable MARK-DON, DAVE DO Unavailable Unavailable MARK-DON, DAVE DO Unavailable Unavailable MARK-DON, DAVE DO Unavailable Unavailable MARK-DON, DAVE DO Unavailable Unavailable MARK-DON, DAVE DO Unavailable Unavailable MARK-DON, DAVE DO Unavailable Unavailable MARK-DON, DAVE DO Unavailable Unavailable MARK-DON, DAVE DO Unavailable Unavailable MARK-DON, DAVE DO Unavailable Unavailable MARK-DON, DAVE DO Unavailable Unavailable MARK-DON, DAVE DO Unavailable Unavailable MARK-DON, DAVE DO Unavailable Unavailable MARK-DON, DAVE DO Unavailable Unavailable MARK-DON, DAVE DO Unavailable Unavailable MARK-DON, DAVE DO Unavailable Unavailable MARK-DON, DAVE DO Unavailable Unavailable MARK-DON, DAVE DO Unavailable Unavailable MARK-DON, DAVE DO Unavailable Unavailable MARK-DON, DAVE DO Unavailable Unavailable MARK-DON, DAVE DO Unavailable Unavailable MARK-DON, DAVE DO Unavailable Unavailable MARK-DON, DAVE DO Unavailable Unavailable MARK-DON, DAVE DO Unavailable Unavailable MARK-DON, DAVE DO Unavailable Unavailable MARK-DON, DAVE DO Unavailable Unavailable MARK-DON, DAVE DO Unavailable Unavailable MARK-DON, DAVE DO Unavailable Unavailable MARK-DON, DAVE DO Unavailable Unavailable MARK-DON, DAVE DO Unavailable Unavailable MARK-DON, DAVE DO Unavailable Unavailable MARK-DON, DAVE DO Unavailable Unavailable MARK-DON, DAVE DO Unavailable Unavailable MARK-DON, DAVE DO Unavailable Unavailable Beto Harris MD Unavailable Unavaila ble MigeedBeto MD Unavailable Unavaila ble MigBeto garcía MD Unavailable Unavaila Beto Aguilera MD Unavailable Unavaila ble MigBeto garcía MD Unavailable Unavaila ble MigeedBeto MD Unavailable Unavaila Beto Aguilera MD Unavailable Unavaila Beto Aguilera MD Unavailable Unavaila Beto Aguilera MD Unavailable Unavaila Beto Aguilera MD Unavailable Unavaila Beto Aguilera MD Unavailable Unavaila ble Beto Harris MD Unavailable Unavaila ble MigBeto garcía MD Unavailable Unavaila ble MigBeto garcía MD Unavailable Unavaila ble MigeedBeto MD Unavailable Unavaila ble MigeedBeto MD Unavailable Unavaila ble MigeedBeto MD Unavailable Unavaila ble MigeedBeto MD Unavailable Unavaila ble MigeedBeto MD Unavailable Unavaila ble MigeedBeto MD Unavailable Unavaila ble MigeedBeto MD Unavailable Unavaila ble MigeedBeto MD Unavailable Unavaila ble Migeed, Beto Hopper MD Unavailable Unavaila ble MigeedBeto MD Unavailable Unavaila ble Migeed, Beto Hopper MD Unavailable Unavaila ble Migeed, Beto Hopper MD Unavailable Unavaila ble MigeedBeto MD Unavailable Unavaila ble Migeed, Beto Hopper MD Unavailable Unavaila ble Migeed, Beto Hopper MD Unavailable Unavaila ble Migeed, Beto Hopper MD Unavailable Unavaila ble Migeed, Beto Hopper MD Unavailable Unavaila ble Migeed, Beto Hopper MD Unavailable Unavaila ble MigeedBeto MD Unavailable Unavaila ble MigeedBeto MD Unavailable Unavaila ble MigeedBeto MD Unavailable Unavaila ble MigeedBeto MD Unavailable Unavaila ble MigeedBeto MD Unavailable Unavaila ble MigeedBeto MD Unavailable Unavaila ble MigeedBeto MD Unavailable Unavaila ble MigeedBeto MD Unavailable Unavaila ble MigeedBeto MD Unavailable Unavaila ble MigeedBeto MD Unavailable Unavaila ble MigeedBeto MD Unavailable Unavaila ble Rosetta Heller Unavailable Unavailable Rosetta Heller Unavailable Unavailable O'corby, A Nico PA Unavailable Unavailable O'corby, A Nico PA Unavailable Unavailable O'corby, A Nico PA Unavailable Unavailable O'corby, A Nico PA Unavailable Unavailable O'corby, A Nico PA Unavailable Unavailable O'corby, A Nico PA Unavailable Unavailable O'corby, A Nico PA Unavailable Unavailable O'corby, A Nico PA Unavailable Unavailable O'corby, A Nico PA Unavailable Unavailable O'corby, A Nico PA Unavailable Unavailable O'corby, A Nico PA Unavailable Unavailable O'corby, A Nico PA Unavailable Unavailable O'corby, A Nico PA Unavailable Unavailable O'corby, A Nico PA Unavailable Unavailable O'corby, A Nico PA Unavailable Unavailable O'corby, A Nico PA Unavailable Unavailable O'corby, A Nico PA Unavailable Unavailable O'corby, A Nico PA Unavailable Unavailable O'corby, A Nico PA Unavailable Unavailable O'corby, A Nico PA Unavailable Unavailable O'corby, A Nico PA Unavailable Unavailable O'corby, A Nico PA Unavailable Unavailable O'corby, A Nico PA Unavailable Unavailable O'corby, A Nico PA Unavailable Unavailable O'corby, A Nico PA Unavailable Unavailable O'corby, A Nico PA Unavailable Unavailable O'corby, A Nico PA Unavailable Unavailable O'corby, A Nico PA Unavailable Unavailable O'corby, A Nico PA Unavailable Unavailable O'corby, A Nico PA Unavailable Unavailable Re-disclosure Warning The records that you are about to access may contain information from federally-assisted alcohol or drug abuse programs. If such information is present, then the following federally mandated warning applies: This information has been disclosed to you from records protected by federal confidentiality rules (42 CFR part 2). The federal rules prohibit you from making any further disclosure of this information unless further disclosure is expressly permitted by the written consent of the person to whom it pertains or as otherwise permitted by 42 CFR part 2. A general authorization for the release of medical or other information is NOT sufficient for this purpose. The Federal rules restrict any use of the information to criminally investigate or prosecute any alcohol or drug abuse patient.The records that you are about to access may contain highly sensitive health information, the redisclosure of which is protected by Article 27-F of the [facility] Public Health law. If you continue you may have access to information: Regarding HIV / AIDS; Provided by facilities licensed or operated by the [facility] Office of Mental Health; or Provided by the [facility] Office for People With Developmental Disabilities. If such information is present, then the following [facility] mandated warning applies: This information has been disclosed to you from confidential records which are protected by state law. State law prohibits you from making any further disclosure of this information without the specific written consent of the person to whom it pertains, or as otherwise permitted by law. Any unauthorized further disclosure in violation of state law may result in a fine or mcfp sentence or both. A general authorization for the release of medical or other information is NOT sufficient authorization for further disc losure. Allergies and Adverse Reactions Type Description Substance Reaction Status Data Source(s ) Propensity to adverse reactions SULFA ANTIBIOTICS Sulfa Antibiotics Rash Low Active [facility] Low Propensity to adverse reactions LACTOSE INTOLERANCE (GI) [place] Intolerance (Gi) Active [facility] Propensity to adverse reactions GLUTEN MEAL Wheat gluten extract Active [facility] Propensity to adverse reactions GARLIC allyl sulfide A ctive [facility] Family History Family Member Name Family Member Gender Family Member Status Date o f Status Description Data Source(s) Unknown Male Problem [facility] ([facility]) Unknown Male Problem [facility] ([facility]) at age 38 Encounters Encounter Providers Location Date Indications Data Source(s ) Outpatient Attender: DAVE AMBROSE DO [facility] 04/21/2020 10:00:00 AM EST [facility] ([facility] Office Visit Attender: HANNAH GALARZA MD Main Office 04/19/2020 11: 00:00 AM EST [facility] ([facility]) Inpatient Attender: Ruchi Harris MDAdmitter: Ruchi douglas MD [email or web address] 04/11/2020 02:03:45 PM EST - 04/13/2020 01:50:00 PM EST [facility] Patient discharged. Outpatient Attender: Nico PATIÑO [facility] 04/07/2020 09:40:00 AM EST [facility] ([facility]) Office Visit Attender: Robina PATIÑO Main Office 12/03/2019 02 :30:00 PM EDT [facility] ([facility]) Outpatient Attender: DAVE AMBROSE [facility] 06/24/2019 10:30:00 AM EDT [facility] ([facility]: [facility] 10:00:00 AM EST [facility]: [facility] 12:20:00 PM EST [facility] Outpatient Attender: Robina PATIÑO Main Office 04/29/2019 12:00:0 0 PM EST [facility] ([facility]) [facility]2019 12:30:00 PM EST [facility] ([facility]) Medications Medication Brand Name Start Date Product Form Dose Route Admi nistrative Instructions Pharmacy Instructions Status Indications Reaction Description Data Source(s) Bisoprolol Fumarate 5 MG Oral Tablet Bisoprolol Fumarate 12:00:00 AM EST ORAL active [facility] ([facility] 5 mg 05/05/2020 12:00:00 AM EST tablet 60 TAKE ONE TABLET BY MOUTH TWICE A DAY FOR RESTING HR>90 BPM TAKE ONE TABLET BY MOUTH TWICE A DAY FOR RESTING HR>90 BPM SOLD: 05/06/2020 [facility] Atenolol 25 MG Oral Tablet Atenolol 05/02/2020 12:00:00 AM EST ORAL completed [facility] ([facility]) Atenolol 25 MG Oral Tablet Atenolol 04/27/2020 12:00:00 AM EST ORAL completed [facility] ([facility] 80 mg 04/20/2020 12:00:00 AM EST tablet 90 TAKE ONE TABLET BY MOUTH AT BEDTIME TAKE ONE TABLET BY MOUTH AT BEDTIME SOLD: 04/21/2020 [facility] Atenolol 25 MG Oral Tablet ATENOLOL 04/20/2020 12:00:00 AM EST tablet 180 TAKE ONE TABLET BY MOUTH TWICE A DAY TAKE ONE TABLET BY MOUTH TWICE A DAY SOLD: 04/21/2020 [facility] valsartan 80 MG Oral Tablet Valsartan 04/19/2020 12:00:00 AM EST ORAL active [facility] ([facility]) Flecainide Acetate 50 MG Oral Tablet Flecainide Acetate 03/2021 12:00:00 AM EST ORAL active [facility] ([facility] Atenolol 25 MG Oral Tablet Atenolol 04/19/2020 12:00:00 AM EST ORAL completed [facility] ([facility] 50 mg 04/15/2020 12:00:00 AM EST tablet 60 TAKE ONE TABLET BY MOUTH TWICE A DAY TAKE ONE TABLET BY MOUTH TWICE A DAY SOLD: 04/15/2020 [facility] Atenolol 50 MG Oral Tablet ATENOLOL 04/15/2020 12:00:00 AM EST tablet 30 TAKE ONE TABLET BY MOUTH EVERY DAY TAKE ONE TABLET BY MOUTH EVERY DAY SOLD: 04/15/2020 [facility] mg/5 mL 04/15/2020 12:00:00 AM EST suspension 50 TAKE ONE TEASPOONFUL (5ML) BY MOUTH TWICE A DAY WITH FOOD , DO NOT TAKE COQ10 TAKE ONE TEASPOONFUL (5ML) BY MOUTH TWICE A DAY WITH FOOD , DO NOT TAKE COQ10 SOLD: 04/15/2020 [facility] Flecainide Acetate 50 MG Oral Tablet Flecainide Acetate 10/2020 12:00:00 AM EST ORAL completed [facility] ([facility]) Atenolol 50 MG Oral Tablet Atenolol 04/14/2020 12:00:00 AM EST ORAL completed [facility] ([facility]) Mirtazapine 15 MG Oral Tablet Mirtazapine 04/14/2020 12:00:00 AM EST completed [facility] ([facility]) rivaroxaban 20 MG Oral Tablet [Xarelto] Xarelto 04/14/2020 12:00:0 0 AM EST ORAL active [facility] ([facility] Amlodipine 5 MG Oral Tablet amLODIPine (NORVASC) 5 MG tablet amLODIPine (NORVASC) 5 MG tablet 04/14/2020 12:00:00 AM EST 5 mg Oral active Take 1 tablet (5 mg total) by mouth daily [facility] 5 mg 04/13/2020 12:00:00 AM EST tablet 30 TAKE ONE TABLET BY MOUTH EVERY DAY TAKE ONE TABLET BY MOUTH EVERY DAY SOLD: 05/03/2020 [facility] 20 mg 04/13/2020 12:00:00 AM EST tablet 30 TAKE ONE TABLET BY MOUTH EVERY DAY WITH DINNER TAKE ONE TABLET BY MOUTH EVERY DAY WITH DINNER SOLD: [facility] rivaroxaban 20 MG Oral Tablet rivaroxaban (XARELTO) 20 MG TABS rivaroxaban (XARELTO) 20 MG TABS 04/13/2020 12:00:00 AM EST 20 mg Oral active Take 1 tablet (20 mg total) by mouth daily with dinner [facility] 2 ML Midazolam 1 MG/ML Injection midazolam (VERSED) in jection midazolam (VERSED) injection 04/12/2020 02:11:53 PM EST active As needed, Starting Sat04/12/20 at 1411, Intra-Procedure [facility] Medication administered onsite fentaNYL Citrate (PF) (SUBLIMAZE) injection 1514-3135-70 04/12/2020 02:11:40 PM EST active As neede d, Starting Sat04/12/20 at 1411, Intra-Procedure [facility] Medication administered onsite Diltiazem Hydrochloride 60 MG Oral Tablet diltiazem (C ARDIZEM) tablet 60 mg diltiazem (CARDIZEM) tablet 60 mg 04/11/2020 06:00:00 PM EST 60 mg Oral active 60 mg, Oral, Every 6 hours (scheduled), First dose on Sat04/11/20 at 1800 [facility] Medication administered onsite rivaroxaban 20 MG Oral Tablet rivaroxaban (XARELTO) ta blet 20 mg rivaroxaban (XARELTO) tablet 20 mg 04/11/2020 06:00:00 PM EST 20 mg Oral active 20 mg, Oral, Daily with dinner, First dose on Sat04/11/20 at 1800 [facility] Medication administered onsite ondansetron (ZOFRAN) injection 4 mg 29403-839-51 04/11/2020 03:32:1 5 PM EST 4 mg Intravenous active 4 mg, In travenous, Every 4 hours PRN, nausea, vomiting, Starting Sat04/11/20 at 1532 [facility] Medication administered onsite Acetaminophen 325 MG Oral Tablet acetaminophen (TYLENO L) 325 MG tablet 650 mg acetaminophen (TYLENOL) 325 MG tablet 650 mg 04/11/2020 03:32:15 PM EST 650 mg Oral active 650 mg, Or al, Every 4 hours PRN, mild pain (1-3), headaches, Starting Sat04/11/20 at 1532
"Maximum dose of acetaminophen is 4,000 mg from all sources in 24 hours."
[facility] Medication administered onsite 60 mg 04/11/2020 12:00:00 AM EST tablet 120 TAKE ONE TABLET BY MOUTH EVERY 6 HOURS TAKE ONE TABLET BY MOUTH EVERY 6 HOURS SOLD: 04/13/2020 [facility] Atenolol 25 MG Oral Tablet ATENOLOL 04/11/2020 12:00:00 AM EST tablet 30 TAKE ONE TABLET BY MOUTH AT BEDTIME TAKE ONE TABLET BY MOUTH AT BEDTIME SOLD: 04/13/2020 [facility] 10 mg 04/07/2020 12:00:00 AM EST capsule 90 TAKE ONE CAPSULE BY MOUTH EVERY 8 HOURS NEEDED FOR DIARRHEA TAKE ONE CAPSULE BY MOUTH EVERY 8 HOURS NEEDED FOR DIARRHEA SOLD: 04/07/2020 [facility] Dicyclomine Hydrochloride 10 MG Oral Capsule Dicyclomine HCL 04/06/2020 12:00:00 AM EST ORAL completed [facility] ([facility]) 30 mg 04/04/2020 12:00:00 AM EST tablet 120 TAKE ONE TABLET BY MOUTH FOUR TIMES A DAY TAKE ONE TABLET BY MOUTH FOUR TIMES A DAY SOLD: 04/04/2020 [facility] Diltiazem Hydrochloride 30 MG Oral Tablet Diltiazem HCL 04/04/2020 12:00:00 AM EST ORAL completed [facility] ([facility]) 24 HR Diltiazem Hydrochloride 120 MG Extended Release Oral Capsule DILTIAZEM HCL 04/03/2020 12:00:00 AM EST capsule,extended release 24hr 60 TAKE TWO CAPSULES (240MG)BY MOUTH ONCE DAILY TAKE TWO CAPSULES (240MG)BY MOUTH ONCE DAILY SOLD: 04/03/2020 [facility] 250 mcg (0.25 mg) 04/02/2020 12:00:00 AM EST tablet 30 TAKE ONE TABLET BY MOUTH EVERY DAY TAKE ONE TABLET BY MOUTH EVERY DAY SOLD: 04/03/2020 [facility] 15 mg 04/02/2020 12:00:00 AM EST tablet 30 TAKE ONE TABLET BY MOUTH EVERY DAY AT 6P.M. TAKE ONE TABLET BY MOUTH EVERY DAY AT 6P.M. SOLD: 04/03/2020 [facility] rivaroxaban 15 MG Oral Tablet [Xarelto] Xarelto 04/02/2020 12:00:0 0 AM EST ORAL completed [facility] ([facility] 24 HR Diltiazem Hydrochloride 300 MG Extended Release Oral Capsule Diltiazem HCL [facility] 03/31/2020 12:00:00 AM EST ORAL completed [facility] ([facility]) 20 mg 10/12/2019 12:00:00 AM EDT tablet 90 TAKE ONE TABLET BY MOUTH EVERY DAY TAKE ONE TABLET BY MOUTH EVERY DAY SOLD: 10/15/2019 [facility] 20 mg 10/12/2019 12:00:00 AM EDT tablet 90 TAKE ONE TABLET BY MOUTH EVERY DAY TAKE ONE TABLET BY MOUTH EVERY DAY SOLD: 01/15/2020 [facility] 25 mg 05/14/2019 12:00:00 AM EST tablet 45 TAKE ONE-HALF TABLET BY MOUTH EVERY DAY TAKE ONE-HALF TABLET BY MOUTH EVERY DAY SOLD: 08/15/2019 [facility] 25 mg 05/14/2019 12:00:00 AM EST tablet 45 TAKE ONE-HALF TABLET BY MOUTH EVERY DAY TAKE ONE-HALF TABLET BY MOUTH EVERY DAY SOLD: 02/09/2020 [facility] 25 mg 05/14/2019 12:00:00 AM EST tablet 45 TAKE ONE-HALF TABLET BY MOUTH EVERY DAY TAKE ONE-HALF TABLET BY MOUTH EVERY DAY SOLD: 05/15/2019 [facility] 25 mg 05/14/2019 12:00:00 AM EST tablet 45 TAKE ONE-HALF TABLET BY MOUTH EVERY DAY TAKE ONE-HALF TABLET BY MOUTH EVERY DAY SOLD: 11/12/2019 [facility] Doxycycline Monohydrate 100 MG Oral Capsule Doxycycline [place] hydrate 04/28/2019 12:00:00 AM EST ORAL active M [facility] ([facility]) Atenolol 25 MG Oral Tablet Atenolol 04/28/2019 12:00:00 AM EST active [facility] 100 mg 03/30/2019 12:00:00 AM EST capsule 60 TAKE ONE CAPSULE BY MOUTH TWICE A DAY TAKE ONE CAPSULE BY MOUTH TWICE A DAY SOLD: 04/02/2019 [facility] 100 mg 03/30/2019 12:00:00 AM EST capsule 60 TAKE ONE CAPSULE BY MOUTH TWICE A DAY TAKE ONE CAPSULE BY MOUTH TWICE A DAY SOLD: 05/02/2019 [facility] 50 mg 02/19/2019 12:00:00 AM EST capsule 60 TAKE 1 CAPSULE BY MOUTH 1-2 TIMES A DAY DIRECTED TAKE 1 CAPSULE BY MOUTH 1-2 TIMES A DAY DIRECTED SOLD: 03/25/2019 [facility] 20 mg 10/15/2018 12:00:00 AM EDT tablet 90 TAKE ONE TABLET BY MOUTH EVERY DAY TAKE ONE TABLET BY MOUTH EVERY DAY SOLD: 07/15/2019 [facility] 20 mg 10/15/2018 12:00:00 AM EDT tablet 90 TAKE ONE TABLET BY MOUTH EVERY DAY TAKE ONE TABLET BY MOUTH EVERY DAY SOLD: 04/17/2019 [facility] Diltiazem Hydrochloride 30 MG Oral Tablet diltiazem (C ARDIZEM) 30 MG tablet diltiazem (CARDIZEM) 30 MG tablet 30 mg Oral abor kortney Take 30 mg by mouth 4 (four) times a day [facility] rivaroxaban 15 MG Oral Tablet rivaroxaban (XARELTO) 15 MG TABS rivaroxaban (XARELTO) 15 MG TABS 15 mg Oral aborted [place] [facility] 15 mg by mouth daily [facility] Atenolol 25 MG Oral Tablet atenolol (TENORMIN) 25 MG t ablet atenolol (TENORMIN) 25 MG tablet 25 mg Oral aborted Take 25 mg by mouth daily [facility] Insurance Providers Payer name Policy type / Coverage type Policy ID Covered democrat ID Covered democrat's relationship to saldaña Policy [place] Plan Information MEDICARE [id number] SP [id number] [facility] [id number] SP [id number] [facility] [id number] S [id number] MEDICARE C [id number] S [id number] MEDICARE [id number] MEDICARE [id number] Regla [id number] Umr Commercial [id number] Self [id number] UMR [facility] [id number] SP [id number] Umr Commercial [id number] Self [id number] Umr Medigap Part B [id number] Self [id number] [facility] Ppo Commercial [id number] Self [id number] Umr Medigap Part B [id number] Self [id number] Umr Commercial [id number] Self [id number] 3400 Umr Commercial [id number] Self [id number] 3400 Umr Commercial [id number] Self [id number] 3400 Umr Commercial [id number] Self [id number] 3400 Umr Commercial [id number] Self [id number] 3400 Umr Commercial [id number] Self [id number] 3400 Umr Commercial [id number] Self [id number] 3400 Umr Commercial [id number] Self [id number] 3400 Umr Commercial [id number] Self [id number] 3400 Umr Commercial [id number] Self [id number] [facility] [id number] S [id number] Umr Commercial [id number] Self [id number] 3400 Umr Medigap Part B [id number] Self [id number] Umr Medigap Part B [id number] Self [id number] Umr Commercial [id number] Self [id number] 3400 Umr Commercial [id number] Self [id number] 3400 Umr Commercial [id number] Self [id number] 3400 Umr Commercial [id number] Self [id number] 3400 Umr Commercial [id number] Self [id number] 3400 Umr Commercial [id number] Self [id number] 3400 Umr Commercial [id number] Self [id number] 3400 Umr Commercial [id number] Self [id number] 3400 Umr Commercial [id number] Self [id number] 3400 Umr Commercial [id number] Self [id number] 3400 Umr Medigap Part B [id number] Self [id number] [employer] [id number] SP [id number] [employer] Ppo Commercial [id number] Self [id number] [employer] COMM SELF [id number] S [id number] Problems, Conditions, and Diagnoses Code Display Name Description Problem Type Effective Dates Data Source(s) 093290016 Paroxysmal atrial fibrillation Paroxysmal atrial fibri llation Problem 04/19/2020 12:00:00 AM EST [facility] ([facility]) [id number] Essential hypertension Essential hypertension Problem 04/19/2020 12:00:00 AM EST [facility] ([facility]) I48.3 Typical atrial flutter Typical atrial flutter [id number] 04/11/2020 12:00:00 AM EST [facility] I48.92 Atrial flutter Atrial flutter [id number] 04/11/2020 12:00: 00 AM EST [facility] I48.3 Typical atrial flutter Typical atrial flutter Diagnosi s 04/11/2020 02:03:45 PM EST [facility] I48.92 Unspecified atrial flutter Unspecified atrial flutter Diagnosis 04/11/2020 02:03:45 PM [facility] Surgeries/Procedures Procedure Description Date Indications Data Source(s) ECG ROUTINE ECG W/LEAST 12 LDS W/I&R 04/19/2020 12:00: 00 AM EST [facility] ([facility]) Arterial Pressure Waveform Analysis For Assessment Of Centra l Art 04/19/2020 12:00:00 AM EST [facility] ([facility]) BLOOD COUNT COMPLETE AUTOMATED CBC Routine 04/13/2020 4:23 A M EST 04/13/2020 09:23:00 AM [facility] BASIC METABOLIC PANEL CALCIUM TOTAL BASIC METABOLIC PANEL Routi ne 04/13/2020 4:23 AM EST 04/13/2020 09:23:00 AM [facility] EP STUDY EP STUDY Routine 04/12/2020 2:29 PM EST Typical atrial flutter 04/12/2020 07:29:52 PM EST Typical atrial flutter [facility] Typical atrial flutter ECHO TTHRC R-T 2D W/WOM-MODE COMPL SPEC&COLR DOP ECHOCARDIO GRAM TRANSTHORACIC Routine 04/12/2020 7:30 AM EST 04/12/2020 12:30:00 PM EST [facility] ECG ROUTINE ECG W/LEAST 12 LDS TRCG ONLY W/O I&R ECG 12-LEAD Routine 04/12/2020 6:35 AM EST 04/12/2020 11:35:16 AM EST [facility] BLOOD COUNT COMPLETE AUTOMATED CBC Routine 04/12/2020 5:19 A M EST 04/12/2020 10:19:00 AM EST [facility] BASIC METABOLIC PANEL CALCIUM TOTAL BASIC METABOLIC PANEL Routi ne 04/12/2020 5:19 AM EST 04/12/2020 10:19:00 AM EST [facility] THROMBOPLASTIN TIME PARTIAL PLASMA/WHOLE BLOOD APTT Routine 04/11/2020 2:55 PM EST 04/11/2020 07:55:00 PM EST [facility] PROTHROMBIN TIME PROTIME-INR Routine 04/11/2020 2:55 PM EST 04/11/2020 07:55:00 PM EST [facility] BLOOD COUNT COMPLETE AUTOMATED CBC Routine 04/11/2020 2:55 P M EST 04/11/2020 07:55:00 PM EST [facility] COMPREHENSIVE METABOLIC PANEL COMPREHENSIVE METABOLIC PANEL Rou elder 04/11/2020 2:55 PM EST 04/11/2020 07:55:00 PM EST [facility] ECG ROUTINE ECG W/LEAST 12 LDS W/I&R ECG 12-LEAD Routine 04/11/2020 2:01 PM EST 04/11/2020 07:01:27 PM EST [facility] Electrocardiogram Complete 04/07/2020 12:00:00 AM EST [facility] ([facility]) ECG ROUTINE ECG W/LEAST 12 LDS W/I&R 12/03/2019 12:00: 00 AM EDT [facility] ([facility]) Omt 7-8 Body Regions 06/24/2019 12:00:00 AM EDT [facility] ([facility]) Omt 7-8 Body Regions 06/05/2019 12:00:00 AM EST [facility] ([facility]) Omt 7-8 Body Regions 05/08/2019 12:00:00 AM EST [facility] ([facility]) ECG ROUTINE ECG W/LEAST 12 LDS W/I&R 04/29/2019 12:00: 00 AM EST [facility] ([facility]) Omt 7-8 Body Regions 04/07/2019 12:00:00 AM EST [facility] ([facility]) Results ID Date Data Source [id number] 04/14/2020 08:40:00 PM EST [facility] ([facility]) Name Value Range Interpretation Code Description Data Kathi rce(s) Supporting Document(s) Laboratory test finding (navigational concept) 0.38 ng/mL 0 .00-0.08 Above high [facility] ID Date Data Source [id number] 04/14/2020 08:34:00 PM EST [facility] ([facility]) Name Value Range Interpretation Code Description Data Kathi rce(s) Supporting Document(s) Laboratory test finding (navigational concept) 48.0 % 3 8.0-51.0 Normal (applies to non-numeric results) [facility] ([facility]) Laboratory test finding (navigational concept) 144 mg/dL 7 0-105 Above high normal [facility] Laboratory test finding (navigational concept) 138 meq/L 1 36-145 Normal (applies to non-numeric results) [facility] ([facility]) Laboratory test finding (navigational concept) 3.8 meq/L 3 .5-5.1 Normal (applies to non-numeric results) [facility] ([facility]) Laboratory test finding (navigational concept) 4.4 mg/dL 4 .5-5.3 Below low normal [facility] ([facility]) Laboratory test finding (navigational concept) 104 meq/L 9 8-109 Normal (applies to non-numeric results) [facility] ([facility]) Laboratory test finding (navigational concept) 25.0 MM/L 2 3.0-27.0 Normal (applies to non-numeric results) [facility] ([facility]) Laboratory test finding (navigational concept) 23 mg/dL 8 -26 Normal (applies to non-numeric results) [facility] ([facility]) Laboratory test finding (navigational concept) 0.7 mg/dL 0 .6-1.3 Normal (applies to non-numeric results) [facility] ([facility]) ID Date Data Source [id number] 04/14/2020 08:30:00 PM EST [facility] ([facility]) Name Value Range Interpretation Code Description Data Kathi rce(s) Supporting Document(s) White Blood Count 9.3 10 4.0-10.0 Normal (applies to non-numeri c results) [facility] ([facility]) Red Blood Count 5.41 10 4.00-5.40 Above high normal [place] [facility] ([facility]) Hemoglobin 17.0 g/dL 12.0-15.5 Above high normal [facility] ([facility]) Hematocrit 49.0 % 36.0-47.0 Above high normal [facility] ([facility]) Mean Corpuscular Volume 90.6 fl 80.0-96.0 Normal ( applies to non-numeric results) [facility] ([facility]) Mean Corpuscular Hemoglobin 31.4 pg 27.0-33.0 Norm al (applies to non-numeric results) [facility] ([facility]) Mean Corpuscular HGB Conc 34.7 g/dL 32.0-36.5 Normal (applies to non-numeric results) [facility] ([facility]) Red Cell Distribution Width 11.8 % 11.5-14.5 Norm al (applies to non-numeric results) [facility] ([facility]) Neutrophils % 68.7 % 36.0-66.0 Above high normal [facility] NT ([facility]) Platelet Count, Automated 236 10 150-450 Normal (applies to non-numeric results) [facility] ([facility]) Lymph % 20.4 % 24.0-44.0 Below low normal [facility] ( [facility]) [place] % 9.3 % 0.0-5.0 Above high normal [facility] ([facility]) Baso % 0.3 % 0.0-1.0 Normal (applies to non-numeric resul ts) [facility] ([facility]) Eos % 0.9 % 0.0-3.0 Normal (applies to non-numeric resul ts) [facility] ([facility]) Immature Granulocyte % 0.4 % 0-3.0 Normal (applies to non-n umeric results) [facility] ([facility]) Neutrophils # 6.4 10 1.5-8.5 Normal (applies to non-numeric re sults) [facility] ([facility]) Nucleated Red Blood Cell % 0.0 % 0-0 Normal (applies to n on-numeric results) [facility] ([facility]) Lymph # 1.9 10 1.5-5.0 Normal (applies to non-numeric resul ts) [facility] ([facility]) [place] # 0.9 10 0.0-0.8 Above high normal [facility] ([facility]) Eos # 0.1 10 0.0-0.5 Normal (applies to non-numeric resul ts) [facility] ([facility]) Baso # 0.0 10 0.0-0.2 Normal (applies to non-numeric resul ts) [facility] ([facility]) ID Date Data Source [id number] 04/14/2020 03:26:00 PM EST [facility] ([facility] Name Value Range Interpretation Code Description Data Kathi rce(s) Supporting Document(s) Hematocrit [Volume Fraction] of Blood by Automated count 49.0 [facility] ([facility]) Hemoglobin [Mass/volume] in Blood 17.0 [facility] ([facility]) Erythrocyte mean corpuscular volume [Entitic volume] by Automate d count 90.6 [facility] ([facility]) Erythrocyte mean corpuscular hemoglobin [Entitic mass] by Au tomated count 31.4 [facility] ([facility]) Erythrocyte mean corpuscular hemoglobin concentration [Mass/volume] by Automated count 34.7 [facility] Neutrophils 68.7 [facility] ([facility]) Platelet mean volume [Entitic volume] in Blood by [place] Laboratory test result [facility] ([facility]) Platelets [#/volume] in Blood by Automated count 236 [facility] ([facility]) Erythrocyte distribution width [Ratio] by Automated count 11.8 [facility] ([facility]) Lymphocytes/100 leukocytes in Body fluid by Manual count 20.4 [facility] ([facility]) Monocytes 9.3 [facility] Band form neutrophils/100 leukocytes in Body fluid by Manual count Laboratory test result [facility] ([facility]) Basophils/100 leukocytes in Blood 0.3 [facility] ([facility]) Fluid Body Eosinophils 0.9 [facility] ([facility]) Lymphocytes [#/volume] in Blood 1.9 [facility] ([facility]) Monocytes [#/volume] in Blood 0.9 [facility] ([facility]) Neutrophils [#/volume] in Blood by Automated count 6.4 [facility] ([facility]) Eosinophils [#/volume] in Blood by Automated count 0.1 [facility] ([facility]) Basophils [#/volume] in Blood by Automated count 0.0 [facility] ([facility]) ID Date Data Source [id number] 04/14/2020 03:26:00 PM EST [facility] Name Value Range Interpretation Code Description Data Kathi rce(s) Supporting Document(s) Red Blood Count 5.41 4.70-6.20 [facility] Platelets 236 130-400 [facility] White Blood Count 9.3 4.3-10.9 [facility] Hemoglobin 17.0 13.0-17.0 [facility] ([facility]) Hematocrit 49.0 39.0-50.0 [facility] ([facility]) ID Date Data Source [id number] 04/13/2020 12:19:30 PM EST [facility] INFORMATIONPatient MRN Name Date of Age Gend*PT [id number] Mercy Arreola 1955 64 years F SDCXPT Location Admission Date/Time Visit ID Attending [id number] 04/11/20 9617 --- Zhanna Harris MD([id number]) EPI ID CSN Admitting Provider [id number] Zhanna Harris MD([id number]) Attestation signed by Zhanna Harris MD at 04/13/2020 12:19 PMATTENDING ADDENDUM:I saw and examined Ms. Arreola today, and agree with the exam, assessment,and plan of damon Benitez, noted above.In brief, Ms. Arreola presents with typical with successful RFA.I agree with the plan as noted above.Beto Harris M.D., [facility], [facility] Electrophysiology04/13/2020 12:18 PM --Cardiology Discharge Summary Mercy ArreolaMRN: [id number] date: 04/11/2020ttending Physician: Zhanna Harris [facility] Diagnosis: Typical atrial flutterSecondary Diagnoses: Principal Problem: Typical atrial flutterActive Problems: Atrial flutterPrinciple Procedures:Flutter RFA (04/12/2020)Impressions:1. Baseline rhythm: typical, counterclockwise atrial flutter.2. A linear ablation line was created across the CTI , with termination ofatrial flutter during ablation.3. Persistent bidirectional block across the ablation line.4. Final rhythm: sinus rhythm with normal intervals.Summary:Successful ablation of the cavo-tricuspid isthmus (CTI) for typical right atrialflutter.Bi-directional block across the ablation line was confirmed.Plan:Continue anticoagulationEchocardiogram (04/12/2020)Left Ventricle The left ventricular cavity is normal. Normal (55-65%) ejectionfraction. Wall motion is normal. Diastolic pattern consistent with atrialfibrillation observed. mild concentric left ventricular hypertrophy observed.Right Ventricle The right ventricle is normal. There is normal wall thickness.Wall motion normal. Normal septal motion. No thrombus present. No mass present.Left Atrium The left atrium is moderately dilated. The interatrial septum isintact.Right Atrium The right atrium is moderately dilated.IVC/SVC No thrombus present in the inferior vena cava. No mass seen in theinferior vena cava. Inferior vena cava is normal with greater than 50% collapse..Mitral Valve The mitral valve is abnormal in structure. There is mild valveleaflet thickening. There is mild valve leaflet calcification. There is moderatemitral annular calcification. No stenosis. Trace regurgitation.Tricuspid Valve The tricuspid valve is normal. No stenosis. Moderateregurgitation. No pulmonary hypertension present.Aortic Valve The aortic valve is tricuspid. There is mild global calcificationwithout reduced excursion of the aortic valve present. No stenosis. No aorticinsufficiency is present.Pulmonic Valve The pulmonic valve normal. No stenosis. No regurgitation .Ascending Aorta Normal aortic root, size and contour. no aneurysm is present. Nograft present.Pericardium Pericardium is normal.Indication for Admission and Hospital Course:This patient is a 64 years female who follows with Dr. Galarza for cardiac care.She has the following past medical history:1. Lyme disease, status post treatment . Babeosis, . Atrial flutter status post multiple DC cardioversions. Patient on Xarelto.4. Distant history of tobacco useThe [facility]ations witha heart rate in the 130s on her pulse oximeter. Reports associated dyspnea onexertion. No chest pain or lightheadedness. Of note she had had a recentadmission on 03/30/2020 for similar and was cardioverted at that time. Patientwas given IV Cardizem followed by IV amiodarone and was cardiovertedsuccessfully but reverted back to atrial flutter immediately. Amiodarone wasresumed. Her troponins were negative, TSH wnl, CXR was unremarkable. Anechocardiogram showed normal LVEF, 65%, with mild concentric LVH, of note thereis a small left to right shunt at the level of the membranous ventricular septumrepresenting membranous ventricular septal defect. On 04/12 she underwent asuccessful typical flutter RFA with Dr. Harris. Her final rhythm was SR. She hasmaintained SR since her procedure, she does get bradycardic at times down to the50s, she also does have occasional PACs. No ectopy noted. She was monitoredovernight without complications. Plan to restart her Xarelto at 20 mg daily.Case discussed with Dr. Harris, will stop rate control medications at this time,will DC Cardizem, Atenolol. She will be started on Norvasc 5 mg daily for herelevated BP. She has been seen and examined, deemed stable for DC to home.Currently denies angina, palpitations, shortness of breath, nausea, vomiting,dizziness, and lightheadedness. Discussed plan of care, results of RFA, resultsof echocardiogram, importance of cardiac follow-up, importance of medicationcompliance, risk factor modification, and lifestyle modification. Patient isagreeable to current plan and all questions were answered. She kaylynn follow upwith Dr. Lewis on April 19.Past Medical History:Past Medical History:Diagnosis Date PONV (postoperative nausea and vomiting)Most Recent Labs:BMP:Lab ResultsComponent Value Date NA 139 04/13/2020 K 4.3 04/13/2020 CL 105 04/13/2020 CO2 25 04/13/2020 ANIONGAP 9 04/13/2020 CALCIUM 8.9 04/13/2020 GLU 71 04/13/2020 BUN 25 (H) 04/13/2020 CREATININE 0.80 04/13/2020 GFRAA >60 04/13/2020 GFRNONAA >60 04/13/2020BC without Diff:Lab ResultsComponent Value Date WBC 8.8 04/13/2020 RBC 5.24 04/13/2020 HGB 17.1 (H) 04/13/2020 HCT 49.1 (H) 04/13/2020 MCV 93.7 04/13/2020 MCH 32.6 (H) 04/13/2020 MCHC 34.8 04/13/2020 RDW 12.4 04/13/2020 PLT 234 04/13/2020 MPV 7.6 04/13/2020oags:Lab ResultsComponent Value Date PROTIME 11.7 04/11/2020 INR 1.12 04/11/2020 APTT 31.3 04/11/2020Medications:Your medication listSTART taking these medications Instructions Last Dose Given Morning Afternoon Evening Bedtime As Ne ededamLODIPine 5 MG tabletCommonly known as: NORVASCStart taking on: April 14, 2020 Take 1 tablet (5 mg total) by mouth dailyCHANGE how you take these medications Instructions Last Dose Given Morning Afternoon Evening Bedtime As Neededrivaroxaban 20 MG TabsFor: for atrial fib/flutterCommonly known as: XARELTOWhat changed: medication strength how much to take when to take this Take 1 tablet (20 mg total) by mouth daily with dinnerCONTINUE taking these medications Instructions Last Dose Given Morning Afternoon Evening Bedtime As Neededascorbic acid 500 MG tabletCommonly known as: VITAMIN C Take 500 mg by mouth [id number]-G Tabs Take 1 tablet by mouth dailydicyclomine 10 MG capsuleCommonly known as: BENTYL Take 10 mg by mouth 3 (three) times a day as neededL-Glutamine 500 MG Caps Take by mouthMagnesium Oxide 400 MG tabletCommonly known as: MAG-OX Take 400 mg by mouth dailyvitamin E 400 UNIT capsule Take 400 Units by mouth dailySTOP taking these medicationsatenolol 25 MG tabletCommonly known as: TENORMINdiltiazem 30 MG tabletCommonly known as: CARDIZEMWhere to Get Your MedicationsThese medications were sent to [facility] [place], [place] - [address] [place] [address] amLODIPine 5 MG tablet rivaroxaban 20 MG TabsDischarge Exam:Vitals: Temp: [97.4 F-98 F] 98 FHeart Rate: [54-136] 62Resp: [8-20] 16BP: (100-169)/(60-88) 150/88Pleasant, comfortable, not in acute distress.Awake, alert, oriented times 3.Moves all extremities.General appearance: alert, appears stated age and cooperativeNeck: no carotid bruit and no JVDLungs: Clear to auscultation bilaterally.Heart: bradycardic at times, regular rate and rhythm, S1, S2 normal, no murmur,click, rub or gallopAbdomen: Soft, nontender, bowel sounds present.Extremities: No edema.Pulses: 2+ and symmetricSkin: No rash or lumps.Wound: Right groin site with dry sterile dressing, soft, no hematoma, edema,erythema, ecchymosis or bleeding noted. Healing as anticipated.Discharged Condition:goodDisposition: Home or Self CareFollow Up: Dr. Lewis on April 19.Signature: Emmanuel Patel NPDate: April 13, 2020Time: 11:56 AM Name Value Range Interpretation Code Description Data [facility] rce(s) Supporting Document(s) ID Date Data Source [id number] 04/13/2020 06:50:43 AM EST [facility] Name Value Range Interpretation Code Description Data [facility] Supporting Document(s) SODIUM 139 mmol/L (136-145) [facility] POTASSIUM 4.3 mmol/L (3.6-5.2) [facility] CHLORIDE 105 mmol/L (100-108) [facility] CO2 25 mmol/L (22-31) [facility] ANION GAP 9 mmol/L (7-16) [facility] UREA NITROGEN 25 mg/dL (7-24) H [facility] CREATININE 0.80 mg/dL (0.60-1.00) [facility] BUN/CREAT RATIO 31.3 RATIO (10.0-20.0) H [facility] GLUCOSE 71 mg/dL (70-99) [facility] CALCIUM 8.9 mg/dL (8.4-10.2) [facility] GFR >60 ml/min/1.73m2 (>59) [facility] GFR ( AMER) >60 ml/min/1.73m2 (>59) [facility] GFR INTERPRETATION [facility] --NORMAL KIDNEY FUNCTION OR MILD DISEASE - GFR >OR= 60CHRONIC KIDNEY DISEASE - GFR 15 - 59RENAL FAILURE - GFR <15 Est. GFR calculation based on the MDRDstudy equation, which assumes a steadystate for creatinine. Est. GFR should notbe used for medication dosing. ID Date Data Source [id number] 04/13/2020 04:36:41 AM EST [facility] Name Value Range Interpretation Code Description Data Kathi rce(s) Supporting Document(s) WBC 8.8 10*3/uL (4.1-11.0) [facility] [place] RBC 5.24 10*6/uL (4.00-5.40) [facility] HGB 17.1 g/dL (12.0-16.0) H [facility] HCT 49.1 % (36.0-47.0) [facility] PER[facility] AT [address] [place] [address] [place] [address] MCV 93.7 fL (80.0-95.0) [facility] MCH 32.6 pg (27.0-32.0) [facility] MCHC 34.8 g/dL (32.0-36.0) [facility] RDW 12.4 % (10.5-14.5) [facility] PLT 234 10*3/uL (150-450) [facility] MPV 7.6 fL (7.1-10.7) [facility] ID Date Data Source [id number] 04/12/2020 02:52:26 PM EST [facility] Name Value Range Interpretation Code Description Data Kathi rce(s) Supporting Document(s) &PDF [facility] [id number]/[id number]UR2kYSJvYYl3iGMLh waW [file] [id number]== ID Date Data Source [id number] 04/12/2020 10:05:42 AM EST [facility] Name Value Range Interpretation Code Description Data Kathi rce(s) Supporting Document(s) &PDF [facility] KQLDLt0zTuNFPhWu14/KZNbbCUOov9YcFPxvQSl2HQmmXAKuC5WczBxdMWPANtoWB1rBEJwJYl5cNWHx waW [file] speech pathology teacher+eKajHfl1mrvAOBN0MurJO51xn35Te5sbWA4POu [file] [id number]+HLmqvJLxhEopCSKIEnL9RRE2ITvpHCUXOp0J ID Date Data Source [id number] 04/12/2020 08:37:17 AM EST [facility] Name Value Range Interpretation Code Description Data Kathi rce(s) Supporting Document(s) EKG [facility] [id number]dihy8Y3X9hGRvZ7VlcGJei0fiH3MvK8NcEIChVZEOPF6RoEBy jb2 [file] D2q6qqOUPiEfDU/4LYtzS7klPcMf2X82wWUmJtd4WVgsOG2/+0v5NjL3A/02l0cfy/Yq9v+TIx6p+roller print tender AY7irzyd6O/0ZkDK2fHr7HNuZjwT4E1S2+1QL7T2SP+H/zpgZWvD8CDgdJ+hTTwkAByF+uyf/ccnYZWA YvA2aKZd9DF5PcNrGxuCUuEXLCyY5IPja1yAMDBEQS dDaWZ1YBA0QxLxCDnNJpNEKdzkQunfrLGfUOAexWMFv/oAUkTdBES+fSzBNwFaHYyjvXsZLQOLE7wFJC yjOoHZ2fTphdUWZHiIrkGQrPK0SgPUN2x1GxUJSvvAqotvwFVu+RK0UXuwLn6F9bfwfoEvocW+gC+X76 1I6+lS53RMlYPcODEOo5dyppBDAK7OsNL94rzVCn66 IhBolBbSgwBTGcLLdtw12CgJLswinDLapfkoU8Mw6zAOyYoBjYMHR9CTUgx+GBiZRrYCLleoquDBrBu9 gdiRnSWBzWq684nYjE+bvftGJ7LHLTtEixKwfv+QSU+RZfbMiQnAIu2UAgMXGIInlk3nDkM8mXAPl5aX z0KTHNDNR5qgRJZclWQRNVHyFZ0r9Ko3C50DyNCBZW [file] Hzh2MgGJZpDJCDMx9+EhO6VNY8wCXnCdo4ZcG9TyizRMFRSx== ID Date Data Source [id number] 04/12/2020 06:32:35 AM EST [facility] Name Value Range Interpretation Code Description Data Kathi rce(s) Supporting Document(s) SODIUM 138 mmol/L (136-145) [facility] POTASSIUM 4.3 mmol/L (3.6-5.2) [facility] CHLORIDE 106 mmol/L (100-108) [facility] CO2 24 mmol/L (22-31) [facility] ANION GAP 8 mmol/L (7-16) [facility] UREA NITROGEN 29 mg/dL (7-24) H [facility] CREATININE 0.91 mg/dL (0.60-1.00) [facility] BUN/CREAT RATIO 31.9 RATIO (10.0-20.0) [facility] GLUCOSE 83 mg/dL (70-99) [facility] CALCIUM 9.0 mg/dL (8.4-10.2) [facility] GFR >60 ml/min/1.73m2 (>59) [facility] GFR ( AMER) >60 ml/min/1.73m2 (>59) [facility] GFR INTERPRETATION [facility] --NORMAL KIDNEY FUNCTION OR MILD DISEASE - GFR >OR= 60CHRONIC KIDNEY DISEASE - GFR 15 - 59RENAL FAILURE - GFR <15 Est. GFR calculation based on the MDRDstudy equation, which assumes a steadystate for creatinine. Est. GFR should notbe used for medication dosing. ID Date Data Source [id number] 04/12/2020 06:02:20 AM EST [facility] Name Value Range Interpretation Code Description Data Kathi rce(s) Supporting Document(s) WBC 8.1 10*3/uL (4.1-11.0) [facility] RBC 5.45 10*6/uL (4.00-5.40) H [facility] HGB 18.1 g/dL (12.0-16.0) [facility] HCT 50.6 % (36.0-47.0) [facility] PERFORMED AT [address] [place] [address] N Y [id number] MCV 92.8 fL (80.0-95.0) [facility] MCH 33.1 pg (27.0-32.0) H [facility] MCHC 35.7 g/dL (32.0-36.0) [facility] RDW 12.8 % (10.5-14.5) [facility] PLT 258 10*3/uL (150-450) [facility] MPV 8.0 fL (7.1-10.7) [facility] ID Date Data Source [id number] 04/11/2020 05:34:01 PM EST [facility] INFORMATIONPatient MRN Name Date of Age Gend*PT [id number] Mercy Arreola 1955 64 years F SDCXPT Location Admission Date/Time Visit ID Attending Provider04/11/20 1403 --- Zhanna Harris MD([id number]) EPI ID CSN Admitting Provider [id number] Zhanna Harris MD([id number]) Attestation signed by Zhanna Harris MD at 04/11/2020 5:33 PMATTENDING ADDENDUM:I saw and examined Ms. Arreola today, and agree with the exam, assessment,and plan of damon Tan, noted above.In brief, Ms. Arreola presents with sx atrial flutter.On physical exam, the vital signs were BP (!) 140/103 | Pulse 140 | Temp 97.9 F (Oral) | Resp 18 | SpO2 97% .A 9 body area/organ physical examination was performed.General: Well-developed, well-nourished, patient in NAD.HEENT: NC/AT, sclerae anicteric, moist mucous membranes.Neck: Supple. No thyromegaly was appreciated.Lungs: CTAB, without rales, rhonchi, or wheezes.CV: regular rate & rhythm, no murmurs, rubs, or gallops. Normal VariableS1/S2. The JVP is <8 cm while sitting upright.Abd: Soft, NT, ND.Extremities: No pitting edema, cyanosis or clubbing.Skin: Warm & dry, without jaundice or bruising.Psych: A&O x3, affect appropriate.Problem List:Highly sx typical atrial flutterFully anticoagulatedPlan:EchoAtrial flutter RFA in amProcedurewas discussed with patient / family risks, benefits, and alternativesexplained. Potential risks include but not limited to pain, bleeding,infection, injury to any body system or organ between the skin and heart(including the skin, subcutaneous tissue, blood vessels, abdominal organs,heart, and lungs), phrenic nerve injury and diaphragmatic paralysis, possibleneed for a heart surgery or pacemaker implantation, heart attack, stroke, oreven .I agree with the plan as noted above.Beto Harris M.D., [facility], [facility] CENTERClinical Cardiac Electrophysiology04/11/2020 4:17 PM --ADMISSION HISTORY AND PHYSICALName: Mercy Arreola Gender: femaleDate of : 1955 Age: 64 yearsDate/Time of Admit: 04/11/2020 2:03 PM Code Status: No OrderPrimary Care Provider / Referring Physician: SAILAJA MCGUIREnformant:Current HistoryChief Complaint: palpitationsHPI:This patient is a 64 years female who follows with Dr. Galarza for cardiac care.She has the following past medical history:1. Lyme disease, status post treatment . Babeosis, . Atrial flutter status post multiple DC cardioversions. Patient on Xarelto.4. Distant history of tobacco useThe patient [facility] for palpitations witha heart rate in the 130s on her pulse oximeter. Reports associated dyspnea onexertion. No chest pain or lightheadedness. Of note she had had a recentadmission on 03/30/2020 for similar and was cardioverted at that time. Patientwas given IV Cardizem followed by IV amiodarone and was cardiovertedsuccessfully but reverted back to atrial flutter immediately. Amiodarone wasresumed. Her troponins were negative, TSH wnl, CXR was unremarkable. She tellsme her Xarelto was decreased to 15 mg daily, although review of records yqhgyeww96 mg daily which would be the appropriate dose.The patient denies any history of TIA/CVA, CAD, PAD. Reports extensive testingin 2017 by her channel lip wetter. She currently denies any symptoms other thanfatigue and dyspnea on exertion that is unchanged.Review of Systems:Negative for review of all 10 systems, except as noted above.Past HistoryNo past medical history on file.No past surgical history on file.No family history on file.Social HistorySocial History Narrative Not on fileSocial HistorySocioeconomic History Marital status: Spouse name: Not on file Number of children: Not on file Years of education: Not on file Highest education level: Not on fileOccupational History Not on fileSocial Needs Financial resource strain: Not on file Food insecurity: Worry: Not on file Inability: Not on file Transportation needs: Medical: Not on file Non-medical: Not on fileTobacco Use Smoking status: Not on fileSubstance and Sexual Activity Alcohol use: Not on file Drug use: Not on file Sexual activity: Not on fileLifestyle Physical activity: Days per week: Not on file Minutes per session: Not on file Stress: Not on fileRelationships Social connections: Talks on phone: Not on file Gets together: Not on file Attends buddhism service: Not on file Active member of club or organization: Not on file Attends meetings of clubs or organizations: Not on file Relationship status: Not on file Intimate partner violence: Fear of current or ex partner: Not on file Emotionally abused: Not on file Physically abused: Not on file Forced sexual activity: Not on fileOther Topics Concern Not on fileSocial History Narrative Not on fileMedications and AllergiesALLERGIES/SENSITIVITIES: Allergies not on fileScheduled Meds:Continuous Infusions:PRN Meds:.PhysicalBlood Pressure: Pulse:Temperature: Respirations:Admission Weight: O2 Saturation:Today's Weight:Physical ExamPleasant, comfortable, not in acute distress.Awake, alert, oriented times 3.Moves all extremities.Lungs: Clear to auscultation bilaterally.Heart: variable S1, S2 tachycardicAbdomen: Soft, nontender, bowel sounds present.Pulses: 2+ and symmetricSkin: No rash or lumps.Neurologic: Grossly normalDiagnosticsLabs, [facility]:Glucose 94Creatinine 0.68Sodium 138Potassium 4.1AST 49ALT 76Mag 2.2Troponin less than 0.2, less than 0.2TSH 2.03WBC 10.1Hemoglobin 17.7Hematocrit 51.3Platelets 279 COVID-19 negative, RSV, influenza negativeChest x-ray: UnremarkableECG shows atrial flutter with RVR rate of 135Echocardiogram 03/31/2020: moderate LVH with mild reduction in LV cavity sizefunction cannot be adequately assessed in setting of atrial flutter. Severeleft atrial dilatation. Moderate aortic sclerosis no regurgitation or stenosis.Moderate MAC. Moderate MR with posteriorly directed jet. Severe TR suggestivemoderate elevation of estimated right ventricle systolic pressure. Moderateright atrial dilatation. Inlet ventricular septal defect with a small amount ofleft ventricular to right ventricular shunting. Differential diagnosis wouldinclude perimembranous VSD or an overlap between the perimembranous VSD and theinlet VSD. No RV to LV shunting. No atrial septal defect. Small pericardialeffusion without diastolic chamber collapseAssessment & PlanActive Problems: Atrial flutterAdmit to D4/D5 telemetryCBC, BMPECGPatient is COVID negativeAtrial flutter with RVR: symptomatic. Patient has failed multiple cardioversionsand presents for RFA ablation. Will continue start oral amiodarone, she wasloaded [facility]. Continue oral cardizem. Start PO amiodarone.Monitor blood pressure and heart rate. Continue Xarelto, 20mg dose as she hasnormal creatinine.Plan RFA ablation for tomorrow. Further recommendations per Dr. Harris.Follow up with Dr. Galarza in 1-2 weeks after discharge.Signature: MIRELLA Cliftonate: April 11, 2020Time: 2:11 PM Name Value Range Interpretation Code Description Data Kathi rce(s) Supporting Document(s) ID Date Data Source [id number] 04/11/2020 04:54:08 PM EST [facility] Name Value Range Interpretation Code Description Data Kathi rce(s) Supporting Document(s) SODIUM 142 mmol/L (136-145) [facility] POTASSIUM 4.5 mmol/L (3.6-5.2) [facility] CHLORIDE 105 mmol/L (100-108) [facility] CO2 24 mmol/L (22-31) [facility] ANION GAP 13 mmol/L (7-16) [facility] UREA NITROGEN 17 mg/dL (7-24) [facility] CREATININE 0.70 mg/dL (0.60-1.00) [facility] BUN/CREAT RATIO 24.3 RATIO (10.0-20.0) [facility] GLUCOSE 78 mg/dL (70-99) [facility] CALCIUM 9.4 mg/dL (8.4-10.2) [facility] TOTAL PROTEIN 6.2 g/dL (6.4-8.2) L [facility] ALBUMIN 3.7 g/dL (3.2-4.5) [facility] GLOBULIN 2.5 g/dL (2.7-4.3) L [facility] ALB/GLOB RATIO 1.5 RATIO [facility] ALKALINE PHOSPHATASE 111 U/L (45-117) [facility] BILIRUBIN,TOTAL 0.9 mg/dL (0.0-1.0) [facility] PLEASE NOTE:Total bilirubin results may be falselyelevated in patients taking Eltrombopag. AST (SGOT) 51 U/L (11-39) H [facility] ALT (SGPT) 82 U/L (12-78) H [facility] GFR >60 ml/min/1.73m2 (>59) [facility] GFR ( AMER) >60 ml/min/1.73m2 (>59) [facility] GFR INTERPRETATION [facility] --NORMAL KIDNEY FUNCTION OR MILD DISEASE - GFR >OR= 60CHRONIC KIDNEY DISEASE - GFR 15 - 59RENAL FAILURE - GFR <15 Est. GFR calculation based on the MDRDstudy equation, which assumes a steadystate for creatinine. Est. GFR should notbe used for medication dosing. ID Date Data Source [id number] 04/11/2020 04:38:13 PM EST [facility] Name Value Range Interpretation Code Description Data Kathi rce(s) Supporting Document(s) APTT 31.3 s (22.0-34.3) [facility] PER[facility]MED AT [address] [place] [address] N [id number] ID Date Data Source [id number] 04/11/2020 04:38:13 PM EST [facility] Name Value Range Interpretation Code Description Data Kathi rce(s) Supporting Document(s) PT 11.7 s (9.2-11.9) [facility] PERFORMED AT [address] [place] [address] N [address] INR 1.12 [facility] SUGGESTED THERAPEUTIC RANGES USING INR F ORSTABILIZED ANTICOAGULATED PATIENTS:STANDARD DOSE THERAPY INR 2.0-3.0 DVT, PE, PREVENT DVT OR EMBOLISMHIGH DOSE THERAPY INR 2.5-3.5 PREVENT EMBOLISM FROM MECHANICAL HEART VALVE ID Date Data Source [id number] 04/11/2020 04:31:31 PM EST [facility] Name Value Range Interpretation Code Description Data Kathi rce(s) Supporting Document(s) WBC 9.0 10*3/uL (4.1-11.0) [facility] RBC 5.81 10*6/uL (4.00-5.40) H [facility] HGB 19.1 g/dL (12.0-16.0) H [facility] HCT 54.4 % (36.0-47.0) H [facility] PERFORMED AT [address] [place] [address] N [id number] MCV 93.7 fL (80.0-95.0) [facility] MCH 32.9 pg (27.0-32.0) H [facility] MCHC 35.1 g/dL (32.0-36.0) [facility] RDW 12.8 % (10.5-14.5) [facility] PLT 274 10*3/uL (150-450) [facility] MPV 8.4 fL (7.1-10.7) [facility] ID Date Data Source [id number] 04/11/2020 02:17:21 PM EST [facility] Name Value Range Interpretation Code Description Data Kathi rce(s) Supporting Document(s) EKG [facility] HTQUFi3yRnFKXsVhb8QlRrToVNHsLC2ovit6Z5T7nJXwX8RqvNJkp3wpG7YzO9CzGZXeZKBLPX1HtNBe jb2 [file] kREDBvIMSrYrtggpim5nodBfnuVRyK3qV8xWFtqVH3uWvR54wvthsS2RwpstKi9tQnhXV/wV78ndK/radiologic technologist tl/XXHdnCSZbu0zLOaSSasBDxtaL7V32zr+ZizZtPW6L9lL9sPiCFQooGCjncC5WNWf7ChFd3PF5eFTl lGvGsRSVDGWusKn/nJfWpiGOJZRgxLHoZ//zX//7P/ 3nO9prFR0t//7nf/1f9f/45z//zz//539Yl/ps30qIs/mcZ9Shyd97F5yszdi4+D+s/HsFlfrpr/2HLW ytu44fTlfgA/bqO5rK7ufO3W7/NO2hox3CNFKiMgV6pILNgGmJxO3tlO05r2lcl4jLgMW/4/4oG9eZ8r BE9nac88+egf9+4IiN4V/W5Qb6/8l75R1jpXU+fO2r lG4Ewglkre1t8r9y83+4rSkK/q/9d+7/2h8k/r0wjF/3pv6DQoR/cfmoGIf36hobs+NvkxRDux5Rm0GZ b9x+BAo8pMzdI+NyrT4k/Iq5FDmC+yUJaeJ+cf5E87u1/LIsi40YlnECN9hv+992hZqDptalGC6qb1tV +2wWJhVqXNgq9/fK/GEP29/nbJIm7B0I7ogd39CnA8 5vV/RMytgHfH/9yjqYK57VpIH2iYiJy9DNpy/2ugoc+NpHoQLW/sbdj0v/9eT3zjA1EgAtUqK3fwM8dS 8AXhZTsqi1Qlla3Vm9O+j+6ZE6jV2fnYhl/4Fc6b+Sdbwq3Saiji4Kn5etsjt6ypEPu5/4Fr//4O21u/ 2k8D9oBTAGCOscgs9XPaA/mzCGDjtllti6Xm0hyb3S wOtbtZqLqsxeWTmHeV2zzMroKIsp/Z10YZ+3bvCO/M8sdUNJoYI10YdhlnB12uyQxaEs/pEOWirMP4Wm CreIMAReESjM/0Jnl0WIXfJ/zVT+flsK9Gy4pylbMC5f8I/4d3xU6QTbPArOee/2xO5nRkpH1rivJ4+O 5ZtHg2ax42cIyu/aBZl8NZ3rYqawA/FiahMwlJ7YmJ /dXNuJ2GwW8PRrpc4ZRfLY9DjYjNOkgp7CRRZLT2Dp2BC2FT/+Agk1E0BSA24aNOrNLg4c/fv7fZW++1 6E2bN52ld42VrwcOZ8wvLk1yOJ5g59L7B8rGmIuSSEoXstzdWkNQ+oalfYzx9MGO7tghRJg9o5NP6R8+ Dj+NO7ytOTv+u/kDjm8aP3Cj6UrgFoSAehmEUreqU6 TvoAtqSJa7mzrZ3LQ9ltAQkC2xtcZwqL8RqZRL0KqSlLoVBi72WdQ7f8PL4PVSAfHkOHC+5XLbMgp0It RlY3D4lpzIDrOweigc+ENkStHRayfMQyrbyT9wqms57/83SgjAb2e0YEejqtetH32fpE26EoOagSheKl y635d+IVnnUnXkGeO/BCtDVVY7tGNzmJioJaMNulqD hY9eC03v+gtZU1rOGKnHI/sYWY9do/84H4IC2fI9trQiMSwL2Clxi7X9Gopf/ir5ZEiqU1OAXFoAd+5I Tg1pyHlIfRk4stbz/UJ8oxH8d4+82w/10s56UDKT/hnfibG/76HzeWPzQ9LoC/eHfgmRAewjEhPRB+iX [place]/cjeCXi+Y9P0gGUZ+CSCNkAXhFDOvUr/e23hD4Y 7gjpZvBG/OBB8lI6AudXFuKqO34Zl+Sq3oN6CZ6Thro/cwWv/437d2P/eS6370Al1vkAHzLiJzJsa/Chelly [file] lwA7n0TAJrGYjbZC8lrkByVWWwScnlEw6giPB8GYPlNntIVi7Fj8DivsQ9gzGpPnZeVJi5FdDaIT5F ID Date Data Source [id number] 04/11/2020 09:13:00 AM EST [facility] Name Value Range Interpretation Code Description Data Kathi rce(s) Supporting Document(s) Magnesium Level 2.2 [facility] ([facility]) ID Date Data Source [id number] 04/11/2020 09:13:00 AM EST [facility] Name Value Range Interpretation Code Description Data Kathi rce(s) Supporting Document(s) Sodium 138 [facility] Calcium [Mass/volume] in Serum or Plasma 9.2 [facility] ([facility]) Chloride [Moles/volume] in Serum or Plasma 106 [facility] ([facility]) Carbon dioxide, total [Moles/volume] in Serum or Plasma 25 [facility] ([facility]) Blood Urea Nitrogen 15 5-21 [facility] ([facility]) Potassium [Moles/volume] in Serum or Plasma 4.1 [facility] ([facility]) Glucose 94 70-100 [facility] ([facility]) Creatinine 0.68 0.6-1.5 [facility] ([facility]) Glomerular filtration rate/1.73 sq M.pre dicted [Volume Rate/Area] in Serum or Plasma by Creatinine-based formula (MDRD) 60.0 [facility] ([facility]) ID Date Data Source [id number] 04/11/2020 09:13:00 AM EST [facility] Name Value Range Interpretation Code Description Data Kathi rce(s) Supporting Document(s) Alkaline phosphatase [Enzymatic activity/volume] in Serum or Plasma 1 04 [facility] ([facility]) Aspartate aminotransferase [Enzymatic activity/volume] in Serum or Plasma 49 [facility] ([facility]) Bilirubin.total [Mass/volume] in Serum or Plasma 0.7 [facility] ([facility]) Alanine aminotransferase [Enzymatic activity/volume] in Serum or Pl asma 76 [facility] ([facility]) Bilirubin.direct [Mass/volume] in Serum or Plasma 0.3 [facility] ([facility]) Protein [Mass/volume] in Serum or Plasma 6.0 [facility] ([facility]) Albumin [Mass/volume] in Serum or Plasma 3.4 [facility] ([facility]) Cholesterol [Mass/volume] in Serum or Plasma Laboratory test result [facility] ([facility]) ID Date Data Source [id number] 04/11/2020 09:13:00 AM EST [facility] ([facility]) Name Value Range Interpretation Code Description Data Kathi rce(s) Supporting Document(s) White Blood Count 10.1 4.3-10.9 [facility] ([facility]) Platelets 279 130-400 [facility] Red Blood Count 5.54 4.70-6.20 [facility]) Hematocrit 51.3 39.0-50.0 [facility] ([facility]) Hemoglobin 17.7 13.0-17.0 [facility] ([facility]) ID Date Data Source [id number] 04/10/2020 01:21:00 PM EST [facility] Name Value Range Interpretation Code Description Data Kathi rce(s) Supporting Document(s) SARS coronavirus 2 RNA [Presence] in Res piratory specimen by RISHABH with probe detection [facility] This lab was ordered by [facility] a nd reported by [facility]. ID Date Data Source [id number] 04/10/2020 12:55:00 PM EST [facility] ([facility]) Name Value Range Interpretation Code Description Data Kathi rce(s) Supporting Document(s) White Blood Count 5.9 10 4.0-10.0 Normal (applies to non-numeri c results) [facility] ([facility]) Red Blood Count 5.60 10 4.00-5.40 Above high normal [facility] ([facility]) Hematocrit 53.3 % 36.0-47.0 Above high normal [facility] ([facility]) Hemoglobin 17.4 g/dL 12.0-15.5 Above high normal [facility] ([facility]) Mean Corpuscular Hemoglobin 31.1 pg 27.0-33.0 Norm al (applies to non-numeric results) [facility] ([facility]) Mean Corpuscular Volume 95.2 fl 80.0-96.0 Normal ( applies to non-numeric results) [facility] ([facility]) Mean Corpuscular HGB Conc 32.6 g/dL 32.0-36.5 Normal (applies to non-numeric results) [facility] Red Cell Distribution Width 12.2 % 11.5-14.5 Norm al (applies to non-numeric results) [facility] ([facility]) Platelet Count, Automated 263 10 150-450 Normal (applies to non-numeric results) [facility] ([facility]) Nucleated Red Blood Cell % 0.0 % 0-0 Normal (applies to n on-numeric results) [facility] ([facility]) ID Date Data Source [id number] 04/10/2020 12:55:00 PM EST [facility] Name Value Range Interpretation Code Description Data Kathi rce(s) Supporting Document(s) Glucose, Fasting 84 mg/dL 70-100 Normal (applies to non-numeric results) [facility] ([facility]) Blood Urea Nitrogen 17 mg/dL 7-18 Normal (applies to non-nume kelly results) [facility] ([facility]) Glomerular Filtration Rate Laboratory test result Normal (applies to non- numeric results) [facility] ([facility]) <content>Units are mL/min/1.73 m2</content>
<content></content>
<content>Chronic Kidney Disease Staging per NKF:</content>
<content></content>
<content>Stage I & II GFR >=60 Normal to Mildly Decreased</content>
<content>Stage III GFR 30- 59 Moderately Decreased</content>
<content>Stage IV GFR 15-29 Severely Decreased</content>
<content>Stage V GFR <15 Very Little GFR Left</content>
<content>ESRD GFR <15 on CATERING SALES MANAGER</content>
<content></content> Creatinine For GFR 0.69 mg/dL 0.55-1.30 Normal (applies to non -numeric results) [facility] ([facility]) Sodium Level 141 meq/L 136-145 Normal (applies to non-numeric res ults) [facility] ([facility]) Potassium Serum 4.0 meq/L 3.5-5.1 Normal (applies to non-numeric results) [facility] Chloride Level 107 meq/L 98-107 Normal (applies to non-numeric r esults) [facility] ([facility]) Carbon Dioxide Level 27 meq/L 21-32 Normal (applies to non-num pop results) [facility] ([facility]) Anion Gap 7 meq/L 8-16 Below low normal [facility] ( [facility]) Calcium Level 8.6 mg/dL 8.8-10.2 Below low normal [facility] ([facility]) Ast/Sgot 40 U/L 7-37 Above high normal [facility] ([facility]) Alt/SGPT 69 U/L 12-78 Normal (applies to non-numeric resul ts) [facility] ([facility]) Alkaline Phosphatase 95 U/L 45-117 Normal (applies to non-num pop results) [facility] ([facility]) Bilirubin,Total 0.5 mg/dL 0.2-1.0 Normal (applies to non-numeric results) [facility] ([facility]) Total Protein 5.7 GM/DL 6.4-8.2 Below low normal [facility] Albumin 3.4 GM/DL 3.2-5.2 Normal (applies to non-numeric resul ts) [facility] Albumin/Globulin Ratio 1.5 1.2-2.2 Normal (applies to non-n umeric results) [facility] ([facility]) ID Date Data Source [id number] 04/10/2020 12:55:00 PM EST [facility] ([facility]) Name Value Range Interpretation Code Description Data Kathi rce(s) Supporting Document(s) CPK Creatine Phosphokinase 47 U/L 26-192 Queenie l (applies to non-numeric results) [facility] MB/CK Relative Index 2.55 Normal (applies to non-num pop results) [facility] <content>DIAGNOSIS CRITERIA</content>
<content>MMB ng/ml Relative Index (RI)</content>
<content>NON-AMI < or = 5 N/A</content>
<content>NGUYEN ZONE > 5 < or = 4</content>
<content>AMI > 5 > 4</content>
<content></content> CK-MB Value Mass 1.2 ng/mL Normal (applies to non-numeric results) [facility] ([facility]) Troponin I Laboratory test result Normal (applies to non-n umeric results) [facility] - [place] ([facility]) <content>Troponin I Reference Interval f or Siemens [place] LOCI:</content>
<content></content>
<content>99th Percentile= 0.00-0.045 ng/ml</content>
<content></content>
<content>Risk Stratification:</content>
<content><= 0.10 ng/ml Decreased Risk for Adverse Clinical</content>
<content>Events.</content>
<content>0.10-1.50 ng/ml Increased Risk for Adverse Clinical</content>
<content>Events. Evaluation of additional</content>
<content>criterion and/or repeat testing in 2-6</content>
<content>hours is suggested to rule out myocardial</content>
<content>damage.</content>
<content>>= 1.50 ng/ml Indicative of Myocardial Injury.</content>
<content></content> ID Date Data Source [id number] 04/10/2020 08:45:00 AM EST [facility] Name Value Range Interpretation Code Description Data Kathi rce(s) Supporting Document(s) Laboratory test finding (navigational concept) 15.8 s 1 2.1-14.4 Above high normal [facility] ([facility]) Laboratory test finding (navigational concept) 1.3 Normal (applies to non- numeric results) [facility] ID Date Data Source [id number] 04/10/2020 08:34:00 AM EST [facility] ([facility]) Name Value Range Interpretation Code Description Data Kathi rce(s) Supporting Document(s) Laboratory test finding (navigational concept) 0.00 ng/mL 0 .00-0.08 Normal (applies to non-numeric results) [facility] ([facility]) ID Date Data Source [id number] 04/10/2020 08:33:00 AM EST [facility] ([facility]) Name Value Range Interpretation Code Description Data Kathi rce(s) Supporting Document(s) Laboratory test finding (navigational concept) 50.0 % 3 8.0-51.0 Normal (applies to non-numeric results) [facility] ([facility]) Laboratory test finding (navigational concept) 140 meq/L 1 36-145 Normal (applies to non-numeric results) [facility] ([facility]) Laboratory test finding (navigational concept) 132 mg/dL 7 0-105 Above high normal [facility] ([facility]) Laboratory test finding (navigational concept) 4.1 meq/L 3 .5-5.1 Normal (applies to non-numeric results) [facility] ([facility]) Laboratory test finding (navigational concept) 4.7 mg/dL 4 .5-5.3 Normal (applies to non-numeric results) [facility] Laboratory test finding (navigational concept) 101 meq/L 9 8-109 Normal (applies to non-numeric results) [facility] Laboratory test finding (navigational concept) 29.0 MM/L 2 3.0-27.0 Above high normal [facility] ([facility]) Laboratory test finding (navigational concept) 20 mg/dL 8 -26 Normal (applies to non-numeric results) [facility] ([facility]) Laboratory test finding (navigational concept) 0.8 mg/dL 0 .6-1.3 Normal (applies to non-numeric results) [facility] ID Date Data Source [id number] 04/10/2020 08:30:00 AM EST [facility] ([facility]) Name Value Range Interpretation Code Description Data Kathi rce(s) Supporting Document(s) White Blood Count 5.9 10 4.0-10.0 Normal (applies to non-numeri c results) [facility] ([facility]) Red Blood Count 5.60 10 4.00-5.40 Above high normal [place] ([facility]) Hemoglobin 17.4 g/dL 12.0-15.5 Above high normal [facility] ([facility]) Hematocrit 53.3 % 36.0-47.0 Above high normal [facility] ([facility]) Mean Corpuscular Volume 95.2 fl 80.0-96.0 Normal ( applies to non-numeric results) [facility] ([facility]) Red Cell Distribution Width 12.2 % 11.5-14.5 Norm al (applies to non-numeric results) [facility] ([facility]) Mean Corpuscular Hemoglobin 31.1 pg 27.0-33.0 Norm al (applies to non-numeric results) [facility] ([facility]) Mean Corpuscular HGB Conc 32.6 g/dL 32.0-36.5 Normal (applies to non-numeric results) [facility] ([facility]) Nucleated Red Blood Cell % 0.0 % 0-0 Normal (applies to n on-numeric results) [facility] ([facility]) Platelet Count, Automated 263 10 150-450 Normal (applies to non-numeric results) [facility] ([facility]) ID Date Data Source [id number] 04/10/2020 08:30:00 AM EST [facility] ([facility]) Name Value Range Interpretation Code Description Data Kathi rce(s) Supporting Document(s) Thyrotropin [Units/volume] in Serum or Plasma 2.030 uIU/ML 0. 358-3.740 Normal (applies to non-numeric results) [facility] ID Date Data Source [id number] 04/07/2020 11:45:00 AM EST [facility] ([facility]) Name Value Range Interpretation Code Description Data Kathi rce(s) Supporting Document(s) EKG Laboratory test result [facility] ([facility]) ID Date Data Source [id number] 04/03/2020 10:53:00 AM EST [facility] ([facility] Name Value Range Interpretation Code Description Data Kathi rce(s) Supporting Document(s) Magnesium Level 2 [facility] ([facility] ID Date Data Source [id number] 04/03/2020 10:53:00 AM EST [facility] ([facility] Name Value Range Interpretation Code Description Data Kathi rce(s) Supporting Document(s) Alanine aminotransferase [Enzymatic activity/volume] in Serum or Pl asma 61 [facility] ([facility]) Calcium [Mass/volume] in Serum or Plasma 8.6 [facility] ([facility]) Albumin [Mass/volume] in Serum or Plasma 3.3 [facility] ([facility]) Carbon dioxide, total [Moles/volume] in Serum or Plasma 27 [facility] ([facility]) Alkaline phosphatase [Enzymatic activity/volume] in Serum or Plasma 9 7 [facility] ([facility]) Potassium [Moles/volume] in Serum or Plasma 4.4 [facility] ([facility]) Chloride [Moles/volume] in Serum or Plasma 104 [facility] ([facility]) Protein [Mass/volume] in Serum or Plasma 5.8 [facility] ([facility]) Sodium 139 [facility] Urea nitrogen [Mass/volume] in Serum or Plasma 26 [facility] ([facility]) Aspartate aminotransferase [Enzymatic activity/volume] in Serum or Plasma 30 [facility] ([facility]) Glucose 86 70-100 [facility] Creatinine For GFR 0.81 [facility] ([facility] ID Date Data Source [id number] 04/03/2020 10:53:00 AM EST [facility] ([facility] Name Value Range Interpretation Code Description Data Kathi rce(s) Supporting Document(s) White Blood Count 7.7 4.3-10.9 [facility] ([facility] Red Blood Count 5.34 4.70-6.20 [facility] Platelets 268 130-400 [facility] Hemoglobin 17.1 13.0-17.0 [facility] ([facility]) Hematocrit 50.9 39.0-50.0 [facility] ([facility]) ID Date Data Source [id number] 04/02/2020 04:00:00 AM EST [facility] Name Value Range Interpretation Code Description Data Kathi rce(s) Supporting Document(s) SARS coronavirus 2 RNA [Presence] in Res piratory specimen by RISHABH with probe detection [facility] This lab was ordered by [facility] a nd reported by [facility]. ID Date Data Source [id number] 03/30/2020 06:13:00 PM EST [facility] ([facility]) Name Value Range Interpretation Code Description Data Kathi rce(s) Supporting Document(s) Thyrotropin [Units/volume] in Serum or Plasma 2.050 uIU/ML 0. 358-3.740 Normal (applies to non-numeric results) [facility] ([facility]) Digoxin [Mass/volume] in Serum or Plasma 0.1 ng/mL 0.5-2.0 Below low normal [facility] ([facility]) Thyroxine (T4) free [Mass/volume] in Serum or Plasma 1.30 ng/dL 0.76-1.46 Normal (applies to non-numeric results) [facility] ([facility]) ID Date Data Source [id number] 03/30/2020 06:13:00 PM EST [facility] ([facility]) Name Value Range Interpretation Code Description Data Kathi rce(s) Supporting Document(s) Glucose, Fasting 80 mg/dL 70-100 Normal (applies to non-numeric results) [facility] ([facility]) Blood Urea Nitrogen 22 mg/dL 7-18 Above high normal [facility] ([facility]) Creatinine For GFR 0.84 mg/dL 0.55-1.30 Normal (applies to non -numeric results) [facility] ([facility]) Sodium Level 141 meq/L 136-145 Normal (applies to non-numeric res ults) [facility] ([facility]) Glomerular Filtration Rate Laboratory test result Normal (applies to non- numeric results) [facility] ([facility]) <content>Units are mL/min/1.73 m2</content>
<content></content>
<content>Chronic Kidney Disease Staging per NKF:</content>
<content></content>
<content>Stage I & II GFR >=60 Normal to Mildly Decreased</content>
<content>Stage III GFR 30- 59 Moderately Decreased</content>
<content>Stage IV GFR 15-29 Severely Decreased</content>
<content>Stage V GFR <15 Very Little GFR Left</content>
<content>ESRD GFR <15 on [employer]</content>
<content></content> Chloride Level 108 meq/L 98-107 Above high normal [facility] ([facility]) Potassium Serum 4.1 meq/L 3.5-5.1 Normal (applies to non-numeric results) [facility] ([facility]) Carbon Dioxide Level 29 meq/L 21-32 Normal (applies to non-num pop results) [facility] ([facility]) Anion Gap 4 meq/L 8-16 Below low normal [facility] ( [facility]) Calcium Level 8.7 mg/dL 8.8-10.2 Below low normal [facility] ([facility]) ID Date Data Source [id number] 03/30/2020 06:13:00 PM EST [facility] ([facility]) Name Value Range Interpretation Code Description Data Kathi rce(s) Supporting Document(s) Ast/Sgot 63 U/L 7-37 Above high normal [facility] ([facility]) Alt/SGPT 100 U/L 12-78 Above high normal [facility] ([facility]) Alkaline Phosphatase 103 U/L 45-117 Normal (applies to non-num pop results) [facility] Bilirubin,Direct 0.2 mg/dL 0.0-0.2 Normal (applies to non-numeric results) [facility] Bilirubin,Total 0.6 mg/dL 0.2-1.0 Normal (applies to non-numeric results) [facility] ([facility]) Total Protein 6.1 GM/DL 6.4-8.2 Below low normal [facility] ([facility]) Albumin 3.6 GM/DL 3.2-5.2 Normal (applies to non-numeric resul ts) [facility] Albumin/Globulin Ratio 1.4 1.2-2.2 Normal (applies to non-n umeric results) [facility] ([facility]) ID Date Data Source [id number] 03/30/2020 06:13:00 PM EST [facility] ([facility]) Name Value Range Interpretation Code Description Data Kathi rce(s) Supporting Document(s) CK-MB Value Mass 3.0 ng/mL Normal (applies to non-numeric results) [facility] ([facility]) CPK Creatine Phosphokinase 82 U/L 26-192 Queenie l (applies to non-numeric results) [facility] ([facility]) MB/CK Relative Index 3.66 Normal (applies to non-num pop results) [facility] ([facility]) <content>DIAGNOSIS CRITERIA</content>
<content>MMB ng/ml Relative Index (RI)</content>
<content>NON-AMI < or = 5 N/A</content>
<content>NGUYEN ZONE > 5 < or = 4</content>
<content>AMI > 5 > 4</content>
<content></content> Troponin I Laboratory test result Normal (applies to non-n umeric results) [facility] ([facility]) <content>Troponin I Reference Interval f or Siemens [place] LOCI:</content>
<content></content>
<content>99th Percentile= 0.00-0.045 ng/ml</content>
<content></content>
<content>Risk Stratification:</content>
<content><= 0.10 ng/ml Decreased Risk for Adverse Clinical</content>
<content>Events.</content>
<content>0.10-1.50 ng/ml Increased Risk for Adverse Clinical</content>
<content>Events. Evaluation of additional</content>
<content>criterion and/or repeat testing in 2-6</content>
<content>hours is suggested to rule out myocardial</content>
<content>damage.</content>
<content>>= 1.50 ng/ml Indicative of Myocardial Injury.</content>
<content></content> ID Date Data Source [id number] 03/30/2020 06:13:00 PM EST [facility] ([facility]) Name Value Range Interpretation Code Description Data Kathi rce(s) Supporting Document(s) aPTT in Platelet poor plasma by Coagulation assay 30.0 s 24.2-38.5 Normal (applies to non-numeric results) [facility] ([facility]) ID Date Data Source [id number] 03/30/2020 06:13:00 PM EST [facility] ([facility]) Name Value Range Interpretation Code Description Data Kathi rce(s) Supporting Document(s) Prothrombin Time 14.3 s 12.5-14.3 Above high normal [facility] Inr 1.09 Normal (applies to non-numeric resul ts) [facility] ([facility]) THERAPUTIC HUMAN INR VALUES INDICATIONS NORMAL RANGES PROPHYLAXIS/TREATMENT OF: VENOUS THROMBOSIS 2.0-3.0 PULMONARY EMBOLISM 2.0-3.0 PREVENTION OF SYSTEMIC EMBOLISM FROM: TISSUE HEART VALVES 2.0-3.0 ACUTE MYOCARDIAL INFARCTION 2.0-3.0 VALVULAR HEART DISEASE 2.0-3.0 ATRIAL FIBRILLATION 2.0-3.0 MECHANICAL VALVES(HIGH RISK) 2.5-3.5 RECURRENT MYOCARDIAL INFARCTION 2.5-3.5 ID Date Data Source [id number] 03/30/2020 06:13:00 PM EST [facility] ([facility]) Name Value Range Interpretation Code Description Data Kathi rce(s) Supporting Document(s) Red Blood Count 5.01 10 4.00-5.40 Normal (applies to non-numeric results) [facility] ([facility]) White Blood Count 10.1 10 4.0-10.0 Above high normal [facility] ([facility]) Hematocrit 48.1 % 36.0-47.0 Above high normal [facility] ([facility]) Hemoglobin 16.3 g/dL 12.0-15.5 Above high normal [facility] ([facility]) Mean Corpuscular HGB Conc 33.9 g/dL 32.0-36.5 Normal (applies to non-numeric results) [facility] ([facility]) Mean Corpuscular Volume 96.0 fl 80.0-96.0 Normal ( applies to non-numeric results) [facility] ([facility]) Mean Corpuscular Hemoglobin 32.5 pg 27.0-33.0 Norm al (applies to non-numeric results) [facility] ([facility]) Red Cell Distribution Width 12.6 % 11.5-14.5 Norm al (applies to non-numeric results) [facility] ([facility]) Neutrophils % 74.0 % 36.0-66.0 Above high normal [facility] ([facility]) Platelet Count, Automated 259 10 150-450 Normal (applies to non-numeric results) [facility] ([facility]) Lymph % 16.2 % 24.0-44.0 Below low normal [facility] ( [facility]) [place] % 9.0 % 0.0-5.0 Above high normal [facility] ([facility]) Eos % 0.1 % 0.0-3.0 Normal (applies to non-numeric resul ts) [facility] ([facility]) Immature Granulocyte % 0.3 % 0-3.0 Normal (applies to non-n umeric results) [facility] ([facility]) Baso % 0.4 % 0.0-1.0 Normal (applies to non-numeric resul ts) [facility] ([facility]) Neutrophils # 7.5 10 1.5-8.5 Normal (applies to non-numeric re sults) [facility] ([facility]) Nucleated Red Blood Cell % 0.0 % 0-0 Normal (applies to n on-numeric results) [facility] ([facility]) [place] # 0.9 10 0.0-0.8 Above high normal [facility] ([facility]) Lymph # 1.6 10 1.5-5.0 Normal (applies to non-numeric resul ts) [facility] ([facility]) Eos # 0.0 10 0.0-0.5 Normal (applies to non-numeric resul ts) [facility] ([facility]) Baso # 0.0 10 0.0-0.2 Normal (applies to non-numeric resul ts) [facility] ([facility]) ID Date Data Source [id number] 03/30/2020 06:11:00 PM EST [facility] ([facility]) Name Value Range Interpretation Code Description Data Kathi rce(s) Supporting Document(s) Magnesium [Mass/volume] in Serum or Plasma 2.3 mg/dL 1.8-2 .4 Normal (applies to non-numeric results) [facility] ([facility]) Ethanol [Mass/volume] in Serum or Plasma 0.003 % 0.000-0 .010 Normal (applies to non-numeric results) [facility] ([facility]) ID Date Data Source [id number] 10/18/2019 11:04:00 AM EDT [facility] Name Value Range Interpretation Code Description Data Kathi rce(s) Supporting Document(s) Alanine aminotransferase [Enzymatic activity/volume] in Serum or Pl asma 66 [facility] ([facility]) Albumin [Mass/volume] in Serum or Plasma 3.7 [facility] ([facility]) Carbon dioxide, total [Moles/volume] in Serum or Plasma 27 [facility] ([facility]) Chloride [Moles/volume] in Serum or Plasma 109 [facility] ([facility]) Calcium [Mass/volume] in Serum or Plasma 8.9 [facility] ([facility]) Alkaline phosphatase [Enzymatic activity/volume] in Serum or Plasma 8 1 [facility] ([facility]) Aspartate aminotransferase [Enzymatic activity/volume] in Serum or Plasma 33 [facility] ([facility]) Sodium 143 [facility] Protein [Mass/volume] in Serum or Plasma 6.4 [facility] ([facility]) Potassium [Moles/volume] in Serum or Plasma 4.4 [facility] ([facility]) Creatinine For GFR 0.76 [facility] Urea nitrogen [Mass/volume] in Serum or Plasma 14 [facility] ([facility]) Glucose 90 70-100 [facility] ID Date Data Source [id number] 10/18/2019 11:04:00 AM EDT [facility] ([facility] Name Value Range Interpretation Code Description Data Kathi rce(s) Supporting Document(s) White Blood Count 5.5 4.0-10.0 [facility]) Hematocrit 44.0 [facility] ([facility]) Hemoglobin 14.6 [facility] ([facility]) Platelets 245 150-450 [facility] Red Blood Count 4.72 4.00-5.40 [facility] ID Date Data Source [id number] 08/30/2019 10:18:00 AM EDT [facility] ([facility] Name Value Range Interpretation Code Description Data Kathi rce(s) Supporting Document(s) Tibc % Saturation 52.4 [facility] ([facility] Iron binding capacity [Mass/volume] in Serum or Plasma 292 [facility] ([facility]) Iron 153 50-170 [facility] ID Date Data Source [id number] 07/29/2019 10:16:00 AM EDT [facility] ([facility] Name Value Range Interpretation Code Description Data Kathi rce(s) Supporting Document(s) Tibc % Saturation 40.3 [facility] ([facility] Iron 129 50-170 [facility] Iron binding capacity [Mass/volume] in Serum or Plasma 320 [facility] ([facility]) ID Date Data Source [id number] 07/29/2019 10:16:00 AM EDT [facility] ([facility] Name Value Range Interpretation Code Description Data Kathi rce(s) Supporting Document(s) White Blood Count 8.8 4.0-10.0 [facility] ([facility] Platelets 260 150-450 [facility] Red Blood Count 4.81 4.0-5.40 [facility] Hematocrit 44.8 [facility] ([facility]) Hemoglobin 15.6 [facility] ([facility]) ID Date Data Source [id number] 07/02/2019 10:08:00 AM EDT [facility] Name Value Range Interpretation Code Description Data Kathi rce(s) Supporting Document(s) Red Blood Count 4.92 4.00-5.40 [facility] White Blood Count 6.4 4.0-10.0 [facility] ([facility]) Hematocrit 46.3 [facility] ([facility]) Platelets 297 150-450 [facility] Hemoglobin 15.5 [facility] ([facility]) ID Date Data Source [id number] 07/02/2019 10:08:00 AM EDT [facility] Name Value Range Interpretation Code Description Data Kathi rce(s) Supporting Document(s) Albumin [Mass/volume] in Serum or Plasma 3.8 [facility] ([facility]) Calcium [Mass/volume] in Serum or Plasma 9.3 [facility] ([facility]) Chloride [Moles/volume] in Serum or Plasma 107 [facility] ([facility]) Carbon dioxide, total [Moles/volume] in Serum or Plasma 32 [facility] ([facility]) Alanine aminotransferase [Enzymatic activity/volume] in Serum or Pl asma 90 [facility] ([facility]) Potassium [Moles/volume] in Serum or Plasma 4.2 [facility] ([facility]) Protein [Mass/volume] in Serum or Plasma 6.8 [facility] ([facility]) Alkaline phosphatase [Enzymatic activity/volume] in Serum or Plasma 9 0 [facility] ([facility]) Urea nitrogen [Mass/volume] in Serum or Plasma 19 [facility] ([facility]) Sodium 142 [facility] Glucose 79 70-100 [facility] ([facility]) Aspartate aminotransferase [Enzymatic activity/volume] in Serum or Plasma 41 [facility] ([facility]) Creatinine For GFR 0.86 [facility] ([facility]) Procedure Social History Code Duration Value Status Description Data Source(s ) Smoking 04/19/2020 12:00:00 AM EST Patient is a former smoker completed Patient is a former smoker [facility] ([facility]) Alcohol intake 04/13/2020 12:00:00 AM EST Not Currently completed [facility] Smoking 04/13/2020 12:00:00 AM EST Former smoker completed Former smoker [facility] Vital Signs ID Date Data Source UNK Name Value Range Interpretation Code Description Data Source(s) [place] body weight 115 [lb_av] 115 [lb_av] DARLIN ([facility]) Oxygen saturation in Arterial blood by Pulse oximetry 98 % 98 % [facility] ([facility]) Body temperature 97.8 [degF] 97.8 [degF] [facility] ([facility]) Respiratory rate 18 /min 18 /min [facility] ( [facility]) Heart rate 57 /min 57 /min [facility] ([facility]) Body mass index (BMI) [Ratio] 23.1 kg/m2 23.1 k g/m2 [facility] ([facility]) Body weight 130.38 [lb_av] 130.38 [lb_av] MEDEN T ([facility]) Body height 63 [in_i] 63 [in_i] [facility] ([facility]) 5'3" Diastolic blood pressure 84 mm[Hg] 84 mm[Hg] [facility] ([facility]) Systolic blood pressure 148 mm[Hg] 148 mm[Hg] [facility] Diastolic blood pressure--sitting 86 mm[Hg] 86 mm[Hg] [facility] CBP, adult cuff/LA Systolic blood pressure--sitting 164 mm[Hg] 164 mm[Hg] [facility] ([facility]) CBP, adult cuff/LA Heart rate 51 /min 51 /min [facility] ([facility] Body mass index (BMI) [Ratio] 23.0 kg/m2 23.0 k g/m2 [facility] ([facility]) Body height 63 [in_i] 63 [in_i] [facility] ([facility]) 5'3" Body weight 130.00 [lb_av] 130.00 [lb_av] MEDEN T ([facility]) Oxygen saturation in Arterial blood by Pulse oximetry 97 % 97 % [facility] Respiratory rate 16 /min 16 /min [facility] Body temperature 36.67 Haley 36.67 Haley [facility] Heart rate 62 /min 62 /min [facility] Diastolic blood pressure 88 mm[Hg] 88 mm[Hg] [facility] Systolic blood pressure 150 mm[Hg] 150 mm[Hg] [facility] Body mass index (BMI) [Ratio] 23.03 kg/m2 23.03 kg/m2 [facility] Body weight 58.968 kg 58.968 kg [facility] Body height 160 cm 160 cm [facility] [place] body weight 115 [lb_av] 115 [lb_av] MEDEN ([facility]) Oxygen saturation in Arterial blood by Pulse oximetry 98 % 98 % [facility] ([facility]) Body temperature 98.1 [degF] 98.1 [degF] [facility] Respiratory rate 18 /min 18 /min [facility] Heart rate 63 /min 63 /min [facility] Body mass index (BMI) [Ratio] 23.4 kg/m2 23.4 k g/m2 [facility] ([facility]) Body weight 132.25 [lb_av] 132.25 [lb_av] MEDEN T ([facility]) Body height 63 [in_i] 63 [in_i] [facility] ([facility]) 5'3" Diastolic blood pressure 74 mm[Hg] 74 mm[Hg] [facility] ([facility]) Systolic blood pressure 124 mm[Hg] 124 mm[Hg] M EDENT ([facility]) Diastolic blood pressure--sitting 78 mm[Hg] 78 mm[Hg] [facility] ([facility]) Systolic blood pressure--sitting 130 mm[Hg] 130 mm[Hg] [facility] ([facility]) Heart rate 67 /min 67 /min [facility] ([facility] Body mass index (BMI) [Ratio] 24.3 kg/m2 24.3 k g/m2 [facility] ([facility]) Body height 63 [in_i] 63 [in_i] [facility] ([facility] 5'3" Body weight 137.00 [lb_av] 137.00 [lb_av] MEDEN T ([facility]) [place] body weight 115 [lb_av] 115 [lb_av] MEDEN T ([facility]) Oxygen saturation in Arterial blood by Pulse oximetry 98 % 98 % [facility] ([facility]) Body temperature 98.8 [degF] 98.8 [degF] [facility] ([facility]) Respiratory rate 18 /min 18 /min [facility] ( [facility]) Heart rate 77 /min 77 /min [facility] ([facility]) Body mass index (BMI) [Ratio] 24.7 kg/m2 24.7 k g/m2 [facility] ([facility]) Body weight 139.50 [lb_av] 139.50 [lb_av] MEDEN T ([facility]) Body height 63 [in_i] 63 [in_i] [facility] ([facility] 5'3" Diastolic blood pressure 74 mm[Hg] 74 mm[Hg] [facility] ([facility]) Systolic blood pressure 128 mm[Hg] 128 mm[Hg] M EDENT ([facility]) [place] body weight 115 [lb_av] 115 [lb_av] MEDEN T ([facility]) Oxygen saturation in Arterial blood by Pulse oximetry 99 % 99 % [facility] ([facility]) Body temperature 98.1 [degF] 98.1 [degF] [facility] ([facility]) Respiratory rate 18 /min 18 /min [facility] ( [facility]) Heart rate 70 /min 70 /min [facility] ([facility]) Body mass index (BMI) [Ratio] 24.4 kg/m2 24.4 k g/m2 [facility] ([facility]) Body weight 137.50 [lb_av] 137.50 [lb_av] MEDEN T ([facility]) Body height 63 [in_i] 63 [in_i] [facility] ([facility]) 5'3" Diastolic blood pressure 78 mm[Hg] 78 mm[Hg] [facility] ([facility]) Systolic blood pressure 132 mm[Hg] 132 mm[Hg] M EDENT ([facility]) Oxygen saturation in Arterial blood by Pulse oximetry 100 % 100 % [facility] Body temperature 97.9 [degF] 97.9 [degF] [facility] ([facility]) Respiratory rate 18 /min 18 /min [facility] ( [facility]) Heart rate 53 /min 53 /min [facility] ([facility]) Body mass index (BMI) [Ratio] 24.2 kg/m2 24.2 k g/m2 [facility] ([facility]) Body weight 136.38 [lb_av] 136.38 [lb_av] MEDEN T ([facility]) Body height 63 [in_i] 63 [in_i] [facility] ([facility]) 5'3" Diastolic blood pressure 80 mm[Hg] 80 mm[Hg] [facility] ([facility]) Systolic blood pressure 136 mm[Hg] 136 mm[Hg] M EDENT ([facility]) Diastolic blood pressure--sitting 68 mm[Hg] 68 mm[Hg] [facility] ([facility]) adult cuff, Ra Systolic blood pressure--sitting 120 mm[Hg] 120 mm[Hg] [facility] ([facility]) adult cuff, Ra Heart rate 71 /min 71 /min [facility] ([facility] Body mass index (BMI) [Ratio] 23.7 kg/m2 23.7 k g/m2 [facility] ([facility]) Body height 63 [in_i] 63 [in_i] [facility] ([facility] 5'3" Body weight 134.00 [lb_av] 134.00 [lb_av] MEDEN T ([facility]) Oxygen saturation in Arterial blood by Pulse oximetry 99 % 99 % [facility] ([facility]) Body temperature 98.1 [degF] 98.1 [degF] [facility] ([facility]) Respiratory rate 18 /min 18 /min [facility] ( [facility]) Heart rate 49 /min 49 /min [facility] ([facility]) Body mass index (BMI) [Ratio] 23.8 kg/m2 23.8 k g/m2 [facility] ([facility]) Body weight 134.25 [lb_av] 134.25 [lb_av] MEDEN T ([facility]) Body height 63 [in_i] 63 [in_i] [facility] ([facility]) 5'3" Diastolic blood pressure 64 mm[Hg] 64 mm[Hg] [facility] ([facility]) Systolic blood pressure 132 mm[Hg] 132 mm[Hg] M EDENT ([facility]) Patient Treatment Plan of Care Planned Activity Planned Date Details Description Data Source (s) Amlodipine 5 MG Oral Tablet 04/14/2020 12:00:00 AM [facility] rivaroxaban 20 MG Oral Tablet 04/13/2020 12:00:00 AM EST [facility] rivaroxaban 15 MG Oral Tablet [facility] Diltiazem Hydrochloride 30 MG Oral Tablet [facility] Atenolol 25 MG Oral Tablet [facility]
[2020-05-22] MEDS ORDERED: GI COCKTAIL 50ML BTL(HYOSCYAMINE/MAALOX/LIDOCAINE VISCOUS)(1:3:1) PO ONE (16:15)
--- OUTSIDE RECORDS SUMMARY | 2020-05-22 16:18 | CCD ---
Author Author [facility] Organization [facility] Address Unknown Phone Unavailable Care Team Providers Care Components Engineer Name Role Phone ANTECOL, Sabine YOUNG MD [...] Unavailable Unavailable MARK-DON, DAVE DO Unavailable Unavailable MAKR-DON, DAVE DO Unavailable Unavailable MARK-DON, DAVE DO [...] Unavailable Unavailable MARK-DON, DAVE DO Unavailable Unavailable MARK-ODN, DAVE DO Unavailable Unavailable MARK-DON, DAVE DO [...] Unavaila ble MigeedBeto MD Unavailable Unavaila ble MigeedeBto MD Unavailable Unavaila ble MigeedBeto MD Unavailable [...] is protected by Article 27-F of the [facility] Public Health law. If you continue you may have access to information: Regarding HIV / AIDS; Provided by facilities licensed or operated by the [facility] Office of Mental Health; or Provided by the [facility] Office for People With Developmental Disabilities. If such information is present, then the following [facility] mandated warning applies: This information has been [...] law may result in a fine or care home sentence or both. A general authorization for the release of medical or other information is NOT sufficient authorization for further disc losure. Allergies and Adverse Reactions Type Description Substance Reaction Status Data Source(s ) Propensity to adverse reactions SULFA ANTIBIOTICS Sulfa Antibiotics Rash Low Active [facility] Low Propensity to adverse reactions LACTOSE INTOLERANCE (GI) [place] Intolerance (Gi) Active [facility] Propensity to adverse reactions GLUTEN MEAL Wheat gluten extract Active [facility] Propensity to adverse reactions GARLIC allyl sulfide A ctive [facility] Family History Family Member Name Family Member Gender Family Member Status Date o f Status Description Data Source(s) Unknown Male Problem [facility] ([facility]) Unknown Male Problem [facility] ([facility]) at age 38 Encounters Encounter Providers Location Date Indications Data Source(s ) Outpatient Attender: DAVE AMBROSE DO [facility] 04/21/2020 10:00:00 AM EST [facility] ([facility]) Office Visit Attender: HANNAH GALARZA MD Main Office 04/19/2020 11: 00:00 AM EST [facility] ([facility]) Inpatient Attender: Ruchi Harris MDAdmitter: Ruchi douglas MD [email or web address] 04/11/2020 02:03:45 PM EST - 04/13/2020 01:50:00 PM EST [facility] Patient discharged. Outpatient Attender: Nico PATIÑO [facility] 04/07/2020 09:40:00 AM EST MED[facility] ([facility]) Office Visit Attender: Robina PATIÑO Main Office 12/03/2019 02 :30:00 PM EDT [facility] ([facility]) Outpatient Attender: DAVE AMBROSE [facility] 06/24/2019 10:30:00 AM EDT [facility] ([facility]) [facility]: [facility] 10:00:00 AM EST [facility] ([facility]: [facility] 12:20:00 PM EST [facility] ([facility]) Outpatient Attender: Robina PATIÑO Main Office 04/29/2019 12:00:0 0 PM EST [facility] ([facility]) [facility] 12:30:00 PM EST [facility] ([facility]) Medications Medication Brand Name Start Date Product Form Dose Route Admi nistrative Instructions Pharmacy Instructions Status Indications Reaction Description Data Source(s) Bisoprolol Fumarate 5 MG Oral Tablet Bisoprolol Fumarate 12:00:00 AM EST ORAL active [facility] ([facility]) 5 mg 05/05/2020 12:00:00 AM EST tablet 60 TAKE ONE TABLET BY MOUTH TWICE A DAY FOR RESTING HR>90 BPM TAKE ONE TABLET BY MOUTH TWICE A DAY FOR RESTING HR>90 BPM SOLD: 05/06/2020 [facility] Atenolol 25 MG Oral Tablet Atenolol 05/02/2020 12:00:00 AM EST ORAL completed [facility] ([facility]) Atenolol 25 MG Oral Tablet Atenolol 04/27/2020 12:00:00 AM EST ORAL completed [facility] ([facility]) 80 mg 04/20/2020 12:00:00 AM EST tablet 90 TAKE ONE TABLET BY MOUTH AT BEDTIME TAKE ONE TABLET BY MOUTH AT BEDTIME SOLD: 04/21/2020 [facility] Atenolol 25 MG Oral Tablet ATENOLOL 04/20/2020 12:00:00 AM EST tablet 180 TAKE ONE TABLET BY MOUTH TWICE A DAY TAKE ONE TABLET BY MOUTH TWICE A DAY SOLD: 04/21/2020 [facility] valsartan 80 MG Oral Tablet Valsartan 04/19/2020 12:00:00 AM EST ORAL active [facility] ([facility]) Flecainide Acetate 50 MG Oral Tablet Flecainide Acetate 03/2021 12:00:00 AM EST ORAL active [facility] ([facility]) Atenolol 25 MG Oral Tablet Atenolol 04/19/2020 12:00:00 AM EST ORAL completed [facility] ([facility]) 50 mg 04/15/2020 12:00:00 AM EST tablet 60 TAKE ONE TABLET BY MOUTH TWICE A DAY TAKE ONE TABLET BY MOUTH TWICE A DAY SOLD: 04/15/2020 [employer] [facility] Atenolol 50 MG Oral Tablet ATENOLOL 04/15/2020 12:00:00 AM EST tablet 30 TAKE ONE TABLET BY MOUTH EVERY DAY TAKE ONE TABLET BY MOUTH EVERY DAY SOLD: 04/15/2020 [facility] 750 mg/5 mL 04/15/2020 12:00:00 AM EST suspension 50 TAKE ONE TEASPOONFUL (5ML) BY MOUTH TWICE A DAY WITH FOOD , DO NOT TAKE COQ10 TAKE ONE TEASPOONFUL (5ML) BY MOUTH TWICE A DAY WITH FOOD , DO NOT TAKE COQ10 SOLD: 04/15/2020 [employer] Flecainide Acetate 50 MG Oral Tablet Flecainide Acetate 10/2020 12:00:00 AM EST ORAL completed [facility] ([facility]) Atenolol 50 MG Oral Tablet Atenolol 04/14/2020 12:00:00 AM EST ORAL completed [facility] ([facility]) Mirtazapine 15 MG Oral Tablet Mirtazapine 04/14/2020 12:00:00 AM EST completed [facility] ([facility]) rivaroxaban 20 MG Oral Tablet [Xarelto] Xarelto 04/14/2020 12:00:0 0 AM EST ORAL active [facility] ([facility]) Amlodipine 5 MG Oral Tablet amLODIPine (NORVASC) 5 MG tablet amLODIPine (NORVASC) 5 MG tablet 04/14/2020 12:00:00 AM EST 5 mg Oral active Take 1 tablet (5 mg total) by mouth daily [facility] 5 mg 04/13/2020 12:00:00 AM EST tablet [...] mg total) by mouth daily with dinner [facility] 2 ML Midazolam 1 MG/ML Injection midazolam (VERSED) in jection midazolam (VERSED) injection 04/12/2020 02:11:53 PM EST active As needed, Starting Sat04/12/20 at 1411, Intra-Procedure [facility] Medication administered onsite fentaNYL Citrate (PF) (SUBLIMAZE) injection [id number] 04/12/2020 02:11:40 PM EST active As neede d, Starting Sat04/12/20 at 1411, Intra-Procedure [facility] Medication administered onsite Diltiazem Hydrochloride 60 MG Oral Tablet diltiazem (C ARDIZEM) tablet 60 mg diltiazem (CARDIZEM) tablet 60 mg 04/11/2020 06:00:00 PM EST 60 mg Oral active 60 mg, Oral, Every 6 hours (scheduled), First dose on Sat04/11/20 at 1800 [facility] Medication administered onsite rivaroxaban 20 MG Oral Tablet rivaroxaban (XARELTO) ta blet 20 mg rivaroxaban (XARELTO) tablet 20 mg 04/11/2020 06:00:00 PM EST 20 mg Oral active 20 mg, Oral, Daily with dinner, First dose on Sat04/11/20 at 1800 [facility] Medication administered onsite ondansetron (ZOFRAN) injection 4 mg [id number] 04/11/2020 03:32:1 5 PM EST 4 mg Intravenous active 4 mg, In travenous, Every 4 hours PRN, nausea, vomiting, Starting Sat04/11/20 at 1532 [facility] Medication administered onsite Acetaminophen 325 MG Oral Tablet acetaminophen (TYLENO L) 325 MG tablet 650 mg acetaminophen (TYLENOL) 325 MG tablet 650 mg 04/11/2020 03:32:15 PM EST 650 mg Oral active 650 mg, Or al, Every 4 hours PRN, mild pain (1-3), headaches, Starting Sat04/11/20 at 1532
"Maximum dose of acetaminophen is 4,000 mg from all sources in 24 hours."
[facility] Medication administered onsite 60 mg 04/11/2020 12:00:00 [...] AM EST ORAL completed [facility] ([facility]) 30 mg 04/04/2020 12:00:00 AM EST tablet 120 TAKE ONE TABLET BY MOUTH FOUR TIMES A DAY TAKE ONE TABLET BY MOUTH FOUR TIMES A DAY SOLD: 04/04/2020 [facility] Diltiazem Hydrochloride 30 MG Oral Tablet Diltiazem HCL 04/04/2020 12:00:00 AM EST ORAL completed [facility] ([facility]) 24 HR Diltiazem Hydrochloride 120 MG [...] EST ORAL completed [facility] ([facility]) 24 HR Diltiazem Hydrochloride 300 MG Extended Release Oral Capsule Diltiazem HCL ER Beads 03/31/2020 12:00:00 AM EST ORAL completed [facility] ([facility]) 20 mg 10/12/2019 12:00:00 AM EDT [...] Doxycycline Monohydrate 100 MG Oral Capsule Doxycycline [place] hydrate 04/28/2019 12:00:00 AM EST ORAL active M EDENT ([facility]) Atenolol 25 MG Oral Tablet Atenolol [...] by mouth 4 (four) times a day [facility] rivaroxaban 15 MG Oral Tablet rivaroxaban (XARELTO) 15 MG TABS rivaroxaban (XARELTO) 15 MG TABS 15 mg Oral aborted [place] e 15 mg by mouth daily [facility] Atenolol 25 MG Oral Tablet atenolol (TENORMIN) 25 MG t ablet atenolol (TENORMIN) 25 MG tablet 25 mg Oral aborted Take 25 mg by mouth daily [facility] Insurance Providers Payer name Policy type / Coverage type Policy ID Covered republican ID Covered republican's relationship to saldaña Policy Saldaña Plan Information MEDICARE [id number] SP [id number] [facility] [id number] SP [id number] [facility] [id number] S [id number] MEDICARE C [id number] S [id number] MEDICARE [id number] MEDICARE [id number] Regla [id number] [id number] Umr Commercial [id number] Self [id number] UMR [facility] [id number] SP [id number] Umr Commercial [id number] Self [id number] Umr Medigap Part B [id number] Self [id number] [facility] Ppo Commercial [id number] Self [id number] Umr Medigap Part B [id number] Self [id number] Umr Commercial [id number] Self [id number] Umr Commercial [id number] Self [id number] Umr Commercial [id number] Self [id number] Umr Commercial [id number] Self [id number] Umr Commercial [id number] Self [id number] Umr Commercial [id number] Self [id number] Umr Commercial [id number] Self [id number] Umr Commercial [id number] Self [id number] Umr Commercial [id number] Self [id number] Umr Commercial [id number] Self [id number] POMCO [id number] S [id number] Umr Commercial [id number] Self [id number] Umr Medigap Part B [id number] Self [id number] Umr Medigap Part B [id number] Self [id number] Umr Commercial [id number] Self [id number] Umr Commercial [id number] Self [id number] [id number] Umr Commercial [id number] Self [id number] Umr Commercial [id number] Self [id number] [id number] Umr Commercial [id number] Self [id number] [id number] Umr Commercial [id number] Self [id number] Umr Commercial [id number] Self [id number] [id number] Umr Commercial [id number] Self [id number] [id number] Umr Commercial [id number] Self [id number] [id number] Umr Commercial [id number] Self [id number] Umr Medigap Part B [id number] Self [id number] [employer] [id number] SP [id number] [employer] Ppo Commercial [id number] Self [id number] [employer] COMM SELF [id number] S [id number] Problems, Conditions, and Diagnoses Code Display Name Description Problem Type Effective Dates Data Source(s) 631389740 Paroxysmal atrial fibrillation Paroxysmal atrial fibri llation Problem 04/19/2020 12:00:00 AM EST [facility] ([facility]) [id number] Essential hypertension Essential hypertension Problem 04/19/2020 12:00:00 AM EST [facility] ([facility]) I48.3 Typical atrial flutter Typical atrial flutter [id number] 04/11/2020 12:00:00 AM EST [facility] I48.92 Atrial flutter Atrial flutter [id number] 04/11/2020 12:00: 00 AM EST [facility] I48.3 Typical atrial flutter Typical atrial flutter Diagnosi s 04/11/2020 02:03:45 PM EST [facility] I48.92 Unspecified atrial flutter Unspecified atrial flutter Diagnosis 04/11/2020 02:03:45 PM [facility] Surgeries/Procedures Procedure Description Date Indications Data Source(s) ECG ROUTINE ECG W/LEAST 12 LDS W/I&R 04/19/2020 12:00: 00 AM EST [facility] ([facility]) Arterial Pressure Waveform Analysis For Assessment Of Centra l Art 04/19/2020 12:00:00 AM EST [facility] ([facility]) BLOOD COUNT COMPLETE AUTOMATED CBC Routine 04/13/2020 4:23 A M EST 04/13/2020 09:23:00 AM [facility] BASIC METABOLIC PANEL CALCIUM TOTAL BASIC METABOLIC PANEL Routi ne 04/13/2020 4:23 AM EST 04/13/2020 09:23:00 AM Health system EP STUDY EP STUDY Routine 04/12/2020 2:29 PM EST Typical atrial flutter 04/12/2020 07:29:52 PM EST Typical atrial flutter [facility] Typical atrial flutter ECHO TTHRC R-T 2D W/WOM-MODE COMPL SPEC&COLR DOP ECHOCARDIO GRAM TRANSTHORACIC Routine 04/12/2020 7:30 AM EST 04/12/2020 12:30:00 PM EST [facility] ECG ROUTINE ECG W/LEAST 12 LDS TRCG ONLY W/O I&R ECG 12-LEAD Routine 04/12/2020 6:35 AM EST 04/12/2020 11:35:16 AM EST [facility] BLOOD COUNT COMPLETE AUTOMATED CBC Routine 04/12/2020 5:19 A M EST 04/12/2020 10:19:00 AM EST [facility] BASIC METABOLIC PANEL CALCIUM TOTAL BASIC METABOLIC PANEL Routi ne 04/12/2020 5:19 AM EST 04/12/2020 10:19:[address] [facility] THROMBOPLASTIN TIME PARTIAL PLASMA/WHOLE BLOOD APTT Routine 04/11/2020 2:55 PM EST 04/11/2020 07:55:[address] [facility] PROTHROMBIN TIME PROTIME-INR Routine 04/11/2020 2:55 PM EST 04/11/2020 07:55:00 PM EST [facility] BLOOD COUNT COMPLETE AUTOMATED CBC Routine 04/11/2020 2:55 P M EST 04/11/2020 07:55:00 PM EST [facility] COMPREHENSIVE METABOLIC PANEL COMPREHENSIVE METABOLIC PANEL Rou elder 04/11/2020 2:55 PM EST 04/11/2020 07:55:[address] [facility] ECG ROUTINE ECG W/LEAST 12 LDS W/I&R ECG 12-LEAD Routine 04/11/2020 2:01 PM EST 04/11/2020 07:01:[address] [facility] Electrocardiogram Complete 04/07/2020 12:00:00 AM EST [facility] ([facility]) ECG ROUTINE ECG W/LEAST 12 LDS W/I&R 12/03/2019 12:00: 00 AM EDT MEDMOON ([facility]) Omt 7-8 Body Regions 06/24/2019 12:00:00 AM EDT [facility] ([facility]) Omt 7-8 Body Regions 06/05/2019 12:00:00 AM EST [facility] ([facility]) Omt 7-8 Body Regions 05/08/2019 12:00:00 AM EST [facility] ([facility]) ECG ROUTINE ECG W/LEAST 12 LDS W/I&R 04/29/2019 12:00: 00 AM EST [facility] ([facility]) Omt 7-8 Body Regions 04/07/2019 12:00:00 AM EST [facility] ([facility]) Results ID Date Data Source [id number] 04/14/2020 08:40:00 PM EST [facility] ([facility]) Name Value Range Interpretation Code Description Data Kathi rce(s) Supporting Document(s) Laboratory test finding (navigational concept) 0.38 ng/mL 0 .00-0.08 Above high normal [facility] ID Date Data Source [id number] 04/14/2020 08:34:00 PM EST [facility] ([facility]) Name Value Range Interpretation Code Description Data Kathi rce(s) Supporting Document(s) Laboratory test finding (navigational concept) 48.0 % 3 8.0-51.0 Normal (applies to non-numeric results) [facility] ([facility]) Laboratory test finding (navigational concept) 144 mg/dL 7 0-105 Above high normal [facility] Laboratory test finding (navigational concept) 138 meq/L 1 36-145 Normal (applies to non-numeric results) [facility] ([facility]) Laboratory test finding (navigational concept) 3.8 meq/L 3 .5-5.1 Normal (applies to non-numeric results) [facility] ([facility]) Laboratory test finding (navigational concept) 4.4 mg/dL 4 .5-5.3 Below low normal [facility] ([facility]) Laboratory test finding (navigational concept) 104 meq/L 9 8-109 Normal (applies to non-numeric results) [facility] ([facility]) Laboratory test finding (navigational concept) 25.0 MM/L 2 3.0-27.0 Normal (applies to non-numeric results) [facility] ([facility]) Laboratory test finding (navigational concept) 23 mg/dL 8 -26 Normal (applies to non-numeric results) [facility] ([facility]) Laboratory test finding (navigational concept) 0.7 mg/dL 0 .6-1.3 Normal (applies to non-numeric results) [facility] ([facility]) ID Date Data Source [id number] 04/14/2020 08:30:00 PM EST [facility] ([facility] Name Value Range Interpretation Code Description Data Kathi rce(s) Supporting Document(s) White Blood Count 9.3 10 4.0-10.0 Normal (applies to non-numeri c results) [facility] ([facility]) Red Blood Count 5.41 10 4.00-5.40 Above high normal [facility] ([facility]) Hemoglobin 17.0 g/dL 12.0-15.5 Above high normal [facility] ([facility]) Hematocrit 49.0 % 36.0-47.0 Above high normal [facility] ([facility]) Mean Corpuscular Volume 90.6 fl 80.0-96.0 Normal ( applies to non-numeric results) [facility] ([facility]) Mean Corpuscular Hemoglobin 31.4 pg 27.0-33.0 Norm al (applies to non-numeric results) [facility] ([facility]) Mean Corpuscular HGB Conc 34.7 g/dL 32.0-36.5 Normal (applies to non-numeric results) [facility] ([facility]) Red Cell Distribution Width 11.8 % 11.5-14.5 Norm al (applies to non-numeric results) [facility] ([facility]) Neutrophils % 68.7 % 36.0-66.0 Above high normal [facility] NT ([facility]) Platelet Count, Automated 236 10 150-450 Normal (applies to non-numeric results) [facility] ([facility]) Lymph % 20.4 % 24.0-44.0 Below low normal [facility] ( [facility]) [place] % 9.3 % 0.0-5.0 Above high normal [facility] ([facility]) Baso % 0.3 % 0.0-1.0 Normal (applies to non-numeric resul ts) [facility] ([facility]) Eos % 0.9 % 0.0-3.0 Normal (applies to non-numeric resul ts) [facility] ([facility]) Immature Granulocyte % 0.4 % 0-3.0 Normal (applies to non-n umeric results) [facility] ([facility]) Neutrophils # 6.4 10 1.5-8.5 Normal (applies to non-numeric re sults) [facility] ([facility]) Nucleated Red Blood Cell % 0.0 % 0-0 Normal (applies to n on-numeric results) [facility] ([facility]) Lymph # 1.9 10 1.5-5.0 Normal (applies to non-numeric resul ts) [facility] ([facility]) [place] # 0.9 10 0.0-0.8 Above high normal [facility] ([facility]) Eos # 0.1 10 0.0-0.5 Normal (applies to non-numeric resul ts) [facility] ([facility]) Baso # 0.0 10 0.0-0.2 Normal (applies to non-numeric resul ts) [facility] ([facility]) ID Date Data Source [id number] 04/14/2020 03:26:00 PM EST [facility] ([facility]) Name Value Range Interpretation Code Description Data Kathi rce(s) Supporting Document(s) Hematocrit [Volume Fraction] of Blood by Automated count 49.0 [facility] ([facility]) Hemoglobin [Mass/volume] in Blood 17.0 [facility] ([facility]) Erythrocyte mean corpuscular volume [Entitic volume] by Automate d count 90.6 [facility] ([facility]) Erythrocyte mean corpuscular hemoglobin [Entitic mass] by Au tomated count 31.4 [facility] ([facility]) Erythrocyte mean corpuscular hemoglobin concentration [Mass/volume] by Automated count 34.7 [facility] ([facility]) Neutrophils 68.7 [facility] ([facility]) Platelet mean volume [Entitic volume] in Blood by [place] Laboratory test result [facility] ([facility]) Platelets [#/volume] in Blood [...] by Manual count Laboratory test result [facility] ([facility]) Basophils/100 leukocytes in Blood [facility]) ID Date Data Source [id number] 04/14/2020 03:26:00 PM EST [facility] ([facility]i [facility] [...] [facility]) ID Date Data Source [id number] 04/13/2020 12:19:30 PM EST [facility]FORMATION[facility] Name Date of Age Gend*PT [id number] Mercy Arreola 1955 64 years F SDCXPT Location Admission Date/Time Visit ID Attending ProviderCV-03 04/11/20 0623 --- Zhanna Harris MD([id number]) EPI ID CSN Admitting Provider [id number] Zhanna Harris MD([id number]) Attestation signed by Zhanna Harris MD at 04/13/2020 12:19 PMATTENDING ADDENDUM:I saw and examined Ms. Arreola today, and agree with the exam, assessment,and plan of damon Benitez, noted above.In brief, Ms. Arreola presents with typical with successful RFA.I agree with the plan as noted above.Beto Harris M.D., [facility], [facility] Card[facility] Electrophysiology04/13/2020 12:18 PM --Cardiology Discharge Summary Mercy ArreolaMRN: [id number] date: 04/11/2020ttending Physician: Zhanna Harris [facility] Diagnosis: Typical atrial flutterSecondary Diagnoses: Principal Problem: [...] history of tobacco useThe patient presented [facility] for palpitations witha heart rate in [...] VITAMIN C Take 500 mg by mouth [id number]-[id number] Tabs Take 1 tablet by mouth dailydicyclomine [...] Get Your MedicationsThese medications were sent to [facility] [place], [place] - [address] [place] [address] amLODIPine 5 MG tablet rivaroxaban 20 MG [...] Name Value Range Interpretation Code Description Data [facility] rce(s) Supporting Document(s) ID Date Data Source [id number] 04/13/2020 06:50:43 AM EST [facility] Name Value Range Interpretation Code Description Data [facility] Supporting Document(s) SODIUM 139 mmol/L (136-145) [facility] POTASSIUM 4.3 mmol/L (3.6-5.2) [facility] CHLORIDE 105 mmol/L (100-108) [facility] CO2 25 mmol/L (22-31) [facility] ANION GAP 9 mmol/L (7-16) [facility] UREA NITROGEN 25 mg/dL (7-24) H [facility] CREATININE 0.80 mg/dL (0.60-1.00) [facility] BUN/CREAT RATIO 31.3 RATIO (10.0-20.0) [facility] GLUCOSE 71 mg/dL (70-99) [facility] CALCIUM 8.9 mg/dL (8.4-10.2) [facility] GFR >60 ml/min/1.73m2 (>59) [facility] GFR ( AMER) >60 ml/min/1.73m2 (>59) [facility] GFR INTERPRETATION [facility] --NORMAL KIDNEY FUNCTION OR MILD DISEASE - GFR >OR= 60CHRONIC KIDNEY DISEASE - GFR 15 - 59RENAL FAILURE - GFR <15 Est. GFR calculation based on the MDRDstudy equation, which assumes a steadystate for creatinine. Est. GFR should notbe used for medication dosing. ID Date Data Source [id number] 04/13/2020 04:36:41 AM EST [facility] Name Value Range Interpretation Code Description Data Kathi rce(s) Supporting Document(s) WBC 8.8 10*3/uL (4.1-11.0) [facility] RBC 5.24 10*6/uL (4.00-5.40) [facility] HGB 17.1 g/dL (12.0-16.0) [facility] HCT 49.1 % (36.0-47.0) [facility] PERFORMED AT [address] [place] [address] N [place] [address] MCV 93.7 fL (80.0-95.0) [facility] MCH 32.6 pg (27.0-32.0) [facility] MCHC 34.8 g/dL (32.0-36.0) [facility] RDW 12.4 % (10.5-14.5) Lab [facility] PLT 234 10*3/uL (150-450) [facility] MPV 7.6 fL (7.1-10.7) [facility] ID Date Data Source [id number] 04/12/2020 02:52:26 PM EST [facility] Name Value Range Interpretation Code Description Data Kathi rce(s) Supporting Document(s) &PDF [facility] VKFSRg6lJsILUpWz44/MRYeyTIYfc3KyUOwbXNo4SRfwZFSwJ8FnqFssNBQIPnjUC6qJSQwNOd7iQGGa waW [file] UEZ2HNTm== ID Date Data Source [id number] 04/12/2020 10:05:42 AM EST [facility] Name Value Range Interpretation Code Description Data Kathi rce(s) Supporting Document(s) &PDF [facility] WQUJBy3zOyQXQrJs09/ATAjjRLChk4NtTXklZEw0YSfjEFQaC2AccNejYZQXXyzTG4kBWKqAWe1fNZDt waW [file] skein washer+eSzmHcj3uceQZXH9XyyMU97fm42Yo0iqWI6BAi [file] RrxiJrW7NKMzAVR5EpCnBCz0Dk5dICSNCe2+ALwdrFHaxVgrLIPDWjC7NGM2MGzsFVGTPd9A ID Date Data Source [id number] 04/12/2020 08:37:17 AM EST [facility] Name Value Range Interpretation Code Description Data Kathi rce(s) Supporting Document(s) EKG [facility] VFBSGg3qGfPJTsTwz3CtOjUvJABaZX3ryvv7P1J4tPXsM7WxnFBrn3kaG8MfQ9PtTXGqYYYGHL4FhVNw jb2 [file] C0h1jbUJTdAjDQ/5YZmjD5raEpEg7J79nVOmJsw3IFsxAX5/+1q6LmX8A/26e3wli/Yq9v+TIx6p+continuous improvement coach AO8obmyc6E/9JiEO1qJi0DUeChyI4S3K9+6GR0B3DV+H/ekuTLxC5JNwmK+hTTwkAByF+uyf/ccnYZWA OcW6vYNg8BT5OrUhFyyHSiLGPXlN5XUvs9zMEITTQD xSrKZ0ALU7AgRjYMsXMeBONuxnZesqqQYeBTYfeQOVa/oAUkTdBES+qXnDUeZhWUslaZsLLLFKX0bDUX eyHyDX4bBjauCAWPvAzqCFuPW3EvLUI2j8OeWEJckEnpjppVEf+OK8NKbgPg5T9ivonkWnxzY+gC+X76 1I6+tA51ZYbZNyILIWr0srdeAKYX5UdRJ79glKMh18 QzFjgCtSffZRLqBUspa72FqALndecBTmatrxD2Bq8sDRrRiCtSQRN9ROLxn+GBiZRrYCLleoquDBrBu9 uloAiQHLpXh456gJjU+htzrCB8GLNJdFyqGfll+QSU+LGenLqIrXUe3BShKYGGGgxp7dNmW0zGOFi6wS y9MRYTOZW6spXQCyhXABLABiSF3d1Hn9S61BiRQEXI [file] Gqm6LjCVOuCBRIYb5+FyM0LFT0cJSrZzi1IpN5QhtkDXHCSu== ID Date Data Source [id number] 04/12/2020 06:32:35 AM EST [facility] Name Value Range Interpretation Code Description Data Kathi rce(s) Supporting Document(s) SODIUM 138 mmol/L (136-145) [facility] POTASSIUM 4.3 mmol/L (3.6-5.2) [facility] CHLORIDE 106 mmol/L (100-108) [facility] CO2 24 mmol/L (22-31) [facility] ANION GAP 8 mmol/L (7-16) [facility] UREA NITROGEN 29 mg/dL (7-24) H [facility] CREATININE 0.91 mg/dL (0.60-1.00) [facility] BUN/CREAT RATIO 31.9 RATIO (10.0-20.0) H [facility] GLUCOSE 83 mg/dL (70-99) [facility] CALCIUM 9.0 mg/dL (8.4-10.2) [facility] GFR >60 ml/min/1.73m2 (>59) [facility] GFR ( AMER) >60 ml/min/1.73m2 (>59) [facility] GFR INTERPRETATION Lab [facility] --NORMAL KIDNEY FUNCTION OR MILD DISEASE - GFR >OR= 60CHRONIC KIDNEY DISEASE - GFR 15 - 59RENAL FAILURE - GFR <15 Est. GFR calculation based on the MDRDstudy equation, which assumes a steadystate for creatinine. Est. GFR should notbe used for medication dosing. ID Date Data Source [id number] 04/12/2020 06:02:20 AM EST [facility] Name Value Range Interpretation Code Description Data Kathi rce(s) Supporting Document(s) WBC 8.1 10*3/uL (4.1-11.0) [facility] RBC 5.45 10*6/uL (4.00-5.40) H [facility] HGB 18.1 g/dL (12.0-16.0) H [facility] HCT 50.6 % (36.0-47.0) H [facility] PERFOR[facility] AT [address] [place] [address] N Y [id number] MCV 92.8 fL (80.0-95.0) [facility] MCH 33.1 pg (27.0-32.0) H [facility] MCHC 35.7 g/dL (32.0-36.0) [facility] RDW 12.8 % (10.5-14.5) [facility] PLT 258 10*3/uL (150-450) [facility] MPV 8.0 fL (7.1-10.7) [facility] ID Date Data Source [id number] 04/11/2020 05:34:01 PM EST [facility]FORMATIONPatient MRN Name Date of Age Gend*PT [id number] Mercy Arreola 1955 64 years F SDCXPT Location Admission Date/Time Visit ID Attending Provider04/11/20 1403 --- Zhanna Harris MD([id number]) EPI ID CSN Admitting Provider [id number] Zhanna Harris MD([id number]) Attestation signed by Zhanna Harris MD at [...] the plan as noted above.Beto Harris M.D., [facility] Cardiac Electrophysiology04/11/2020 4:17 PM --ADMISSION HISTORY [...] history of tobacco useThe patient presented to [facility] for palpitations witha heart rate in [...] 15 mg daily, although review of records mg daily which would be the appropriate dose.The patient denies any history of TIA/CVA, CAD, PAD. Reports extensive testingin 2017 by her telephonic rn. She currently denies any symptoms other thanfatigue [...] file Gets together: Not on file Attends hindu service: Not on file Active member of [...] symmetricSkin: No rash or lumps.Neurologic: Grossly normalDiagnosticsLabs, [facility]:Glucose 94Creatinine 0.68Sodium 138Potassium 4.1AST 49ALT 76Mag 2.2Troponin [...] amiodarone, she wasloaded with IV amiodarone at [facility]. Continue oral cardizem. Start PO amiodarone.Monitor blood pressure and heart rate. Continue Xarelto, 20mg dose as she hasnormal creatinine.Plan RFA ablation for tomorrow. Further recommendations per Dr. Harris.Follow up with Dr. Galarza in 1-2 weeks after discharge.Signature: MIRELLA Cliftonate: April 11, 2020Time: 2:11 PM Name Value Range Interpretation Code Description Data Kathi rce(s) Supporting Document(s) ID Date Data Source [id number] 04/11/2020 04:54:08 PM EST [facility] Name Value Range Interpretation Code Description Data Kathi rce(s) Supporting Document(s) SODIUM 142 mmol/L (136-145) [facility] POTASSIUM 4.5 mmol/L (3.6-5.2) [facility] CHLORIDE 105 mmol/L (100-108) [facility] CO2 24 mmol/L (22-31) [facility] ANION GAP 13 mmol/L (7-16) [facility] UREA NITROGEN 17 mg/dL (7-24) [facility] CREATININE 0.70 mg/dL (0.60-1.00) [facility] BUN/CREAT RATIO 24.3 RATIO (10.0-20.0) H [facility] GLUCOSE 78 mg/dL (70-99) [facility] CALCIUM 9.4 mg/dL (8.4-10.2) [facility] TOTAL PROTEIN 6.2 g/dL (6.4-8.2) L [facility] ALBUMIN 3.7 g/dL (3.2-4.5) [facility] GLOBULIN 2.5 g/dL (2.7-4.3) L [facility] ALB/GLOB RATIO 1.5 RATIO [facility] ALKALINE PHOSPHATASE 111 U/L (45-117) [facility] BILIRUBIN,TOTAL 0.9 mg/dL (0.0-1.0) [facility] PLEASE NOTE:Total bilirubin results may be falselyelevated in patients taking Eltrombopag. AST (SGOT) 51 U/L (11-39) H [facility] ALT (SGPT) 82 U/L (12-78) H [facility] GFR >60 ml/min/1.73m2 (>59) [facility] GFR ( AMER) >60 ml/min/1.73m2 (>59) [facility] GFR INTERPRETATION [facility] --NORMAL KIDNEY FUNCTION OR MILD DISEASE - GFR >OR= 60CHRONIC KIDNEY DISEASE - GFR 15 - 59RENAL FAILURE - GFR <15 Est. GFR calculation based on the MDRDstudy equation, which assumes a steadystate for creatinine. Est. GFR should notbe used for medication dosing. ID Date Data Source [id number] 04/11/2020 04:38:13 PM EST [facility] Name Value Range Interpretation Code Description Data Kathi rce(s) Supporting Document(s) APTT 31.3 s (22.0-34.3) [facility] AT [address] [place] [address] N [id number] ID Date Data Source [id number] 04/11/2020 04:38:13 PM EST [facility] Name Value Range Interpretation Code Description Data Kathi rce(s) Supporting Document(s) PT 11.7 s (9.2-11.9) [facility] PER[facility] AT [address] [place] [address] N [id number] INR 1.12 [facility] SUGGESTED THERAPEUTIC RANGES USING INR F ORSTABILIZED ANTICOAGULATED PATIENTS:STANDARD DOSE THERAPY INR 2.0-3.0 DVT, PE, PREVENT DVT OR EMBOLISMHIGH DOSE THERAPY INR 2.5-3.5 PREVENT EMBOLISM FROM MECHANICAL HEART VALVE ID Date Data Source [id number] 04/11/2020 04:31:31 PM EST [facility] Name Value Range Interpretation Code Description Data Kathi rce(s) Supporting Document(s) WBC 9.0 10*3/uL (4.1-11.0) [facility] RBC 5.81 10*6/uL (4.00-5.40) H [facility] HGB 19.1 g/dL (12.0-16.0) H [facility] HCT 54.4 % (36.0-47.0) H [facility] AT [address] [place] [address] N [id number] MCV 93.7 fL (80.0-95.0) [facility] MCH 32.9 pg (27.0-32.0) H [facility] MCHC 35.1 g/dL (32.0-36.0) [facility] RDW 12.8 % (10.5-14.5) [facility] PLT 274 10*3/uL (150-450) [facility] MPV 8.4 fL (7.1-10.7) [facility] ID Date Data Source [id number] 04/11/2020 02:17:21 PM EST [facility] Name Value Range Interpretation Code Description Data Kathi rce(s) Supporting Document(s) EKG [facility] UVFFAs8qCzUXNqHfn3RbUgOfZJNaPC6wrqa9A4C5wHNsI6KqfVVlf7roF5JlA8DaKTTaQZHHFU3VhOKi jb2 [file] mHZYHaMXYhUdtpozjk6pzaLybbYXnC1aI1mRAajFI0kKpD27tbikfH6TgihhBz8oWczUX/gP82jtH/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 inspector tl/GMAnqPGPpf9eHIpGKhhZRaoeW5W72tk+NriLwLO2S0fR2pToMKDehMXiyuF5VQBd9EjOf9VM6xNYi lGvGsRSVDGWusKn/nJfWpiGOJZRgxLHoZ//zX//7P/ 9dE2uyHS9z//7nf/1f9f/45z//zz//539Yl/po51eHl/slV4Cxcf80B9ylpiz5+D+s/HsFlfrpr/2HLW vqu95rJjcpJ/xbF4iW1enJ4N1/RU2ncq7WJLTyTsC3uVXCdPbTxN7syY69h0kdu5mJbLY/4/3yF8gC3u XE9urm39+egf9+4IiN4V/W5Qb6/6s31U9wrDB+fO2r zV6Nhdmien7b9j9f36+4rSkK/q/9d+7/2h8k/r0wjF/1hy6UYiY/luchZZz81qbal+EgngQXgr3Tn5CM b9x+QDx9vKcxQ+NyrT4k/Wm9LBgQ+yUJaeJ+vf5N52x7/XBym61HvtLPT3in+208zSxPotizBA3fy3eR +2mAWbTeXZsx6/fK/GEP29/ouLQw3M3N1kii85PgW4 5vV/RMytgHfH/3qkzFJ12SlIA0cVzPi1KBof/2ugoc+NpHoQLW/sbdj0v/1sX1bfR3AcIrOkI2baF3eQ 9DNdYKuab8Sfpl2Yj8T+j+5UW4xN1syGjl/4Fc6b+Wopyl8Lprur5An4tycge1puUVu1/4Fr//4O21u/ 8g6A3cSAVDGFnngl8AXgN/rcKVJgshoui6Rz4ylq4W jTmseEsKbfudOIbXcV3yqZrrRJjc/Z10YZ+3bvCO/O9btABXmQZ40MczqyN25heLovHm/kDQJejTY2Yb CreIMAReESjM/4Kon9MZCvF/zVT+bchJ2Mb8apgnWF5h6S/5v0hE6EBaNIiLzt/2uU4sInwA0ytsO6+O 2PqIh1dy83nKog/hIYw7JQ1pOhdiJ/DzgwNcnP1AaB /cSZtL1SoO6RYctm7HXvLM7KkTjMLjrb8TJCUJO6Dj5YA8TR/+Prb2A3XHF92wFZwJHd4u/fv7fZW++1 5R4dO62km33GnmtMU7kfLk6sDQ4v09J6K8iVrBfDHFuNvsqdNlYE+gblaFsh0PPO7wmbYMr1w7RM8P9+ Dj+EF5vlDLt+u/fFya4xH2Sv0XqtAbXQrzcMPibeR3 FktPhdCQh6pedA6EX8ifGOwF4dnnEhhH0RqWKP7CkAgJjFPg12DnR0y7QB1XUCXuOuETJ+4BJjDmj9Sn VsZ7U6vwgFNeJtkrdc+DUwNuVAfqeYIlonsS2gjmq61/70WuiIz3f8EMfndsinB07fuD63PaSozYiaZh y635d+IVnnUnXkGeO/ZGbPUZS9dSFulLciYyZZqflM qS6wM09w+owNQ7bXQSwLT/mTVF0zl/42C3OV4nB4sdCrJNrH1Jqpx0U0Gmcz/ob0KRomA2PONJhJl+5I Wb7tfDuCyZx4oijj/XB0esQ2z7+82w/81h54MRFJ/hnfibG/78MpiOJcQ6VhW/eHfgmRAewjEhPRB+iX [place]/cjeCXi+H3Z6kJXB+CSCNkAXhFDOvUr/p00nB8P 7gjpZvBG/AVA0xB8HvzOGdOjD02Zw+Rb5iY8AO9Vthm/cwWv/437d2P/kA3243Al4smYTtThHcWyb/Chelly [file] xgK8d6LHWhWOivZE3ksaDxDXIlXjzrJx9yrHN1AKXuRclNRv4Vz3EokeB4neImPaMuQZq6TiYoOG6J ID Date Data Source [id number] 04/11/2020 09:13:00 AM EST [facility] ([facility]) Name Value Range Interpretation Code Description Data Kathi rce(s) Supporting Document(s) Magnesium Level 2.2 [facility] ([facility]) ID Date Data Source [id number] 04/11/2020 09:13:00 AM EST [facility] ([facility]) Name Value Range Interpretation Code Description Data Kathi rce(s) Supporting Document(s) Sodium 138 [facility] ([facility]) Calcium [Mass/volume] in Serum or Plasma 9.2 [facility] ([facility]) Chloride [Moles/volume] in Serum or Plasma 106 [facility] ([facility]) Carbon dioxide, total [Moles/volume] in Serum or Plasma 25 [facility] ([facility]) Blood Urea Nitrogen 15 5-21 [facility] ([facility]) Potassium [Moles/volume] in Serum or Plasma 4.1 [facility] ([facility]) Glucose 94 70-100 [facility] ([facility]) Creatinine 0.68 0.6-1.5 [facility] ([facility]) Glomerular filtration rate/1.73 sq M.pre dicted [Volume Rate/Area] in Serum or Plasma by Creatinine-based formula (MDRD) 60.0 [facility] ([facility]) ID Date Data Source [id number] 04/11/2020 09:13:00 AM EST [facility] ([facility]) Name Value Range Interpretation Code Description Data Kathi rce(s) Supporting Document(s) Alkaline phosphatase [Enzymatic activity/volume] in Serum or Plasma 1 04 [facility] ([facility]) Aspartate aminotransferase [Enzymatic activity/volume] in Serum or Plasma 49 [facility] ([facility]) Bilirubin.total [Mass/volume] in Serum or Plasma 0.7 [facility] ([facility]) Alanine aminotransferase [Enzymatic activity/volume] in Serum or Pl asma 76 [facility] ([facility]) Bilirubin.direct [Mass/volume] in Serum or Plasma 0.3 [facility] ([facility]) Protein [Mass/volume] in Serum or Plasma 6.0 [facility] ([facility]) Albumin [Mass/volume] in Serum or Plasma 3.4 [facility] ([facility]) Cholesterol [Mass/volume] in Serum or Plasma Laboratory test result [facility] ([facility]) ID Date Data Source [id number] 04/11/2020 09:13:00 AM EST [facility] ([facility]) Name Value Range Interpretation Code Description Data Kathi rce(s) Supporting Document(s) White Blood Count 10.1 4.3-10.9 [facility] ([facility]) Platelets 279 130-400 [facility] Red Blood Count 5.54 4.70-6.20 [facility] ([facility]) Hematocrit 51.3 39.0-50.0 [facility] ([facility]) Hemoglobin 17.7 13.0-17.0 [facility] ([facility]) ID Date Data Source [id number] 04/10/2020 01:21:00 PM EST [facility] Name Value Range Interpretation Code Description Data Kathi rce(s) Supporting Document(s) SARS coronavirus 2 RNA [Presence] in Res piratory specimen by RISHABH with probe detection [facility] This lab was ordered by [facility] a nd reported by [facility]. ID Date Data Source [id number] 04/10/2020 12:55:00 PM EST [facility] ([facility] Name Value Range Interpretation Code Description Data Kathi rce(s) Supporting Document(s) White Blood Count 5.9 10 4.0-10.0 Normal (applies to non-numeri c results) [facility] ([facility]) Red Blood Count 5.60 10 4.00-5.40 Above high normal [facility] ([facility]) Hematocrit 53.3 % 36.0-47.0 Above high normal [facility] ([facility]) Hemoglobin 17.4 g/dL 12.0-15.5 Above high normal [facility] ([facility]) Mean Corpuscular Hemoglobin 31.1 pg 27.0-33.0 Norm al (applies to non-numeric results) [facility] ([facility]) Mean Corpuscular Volume 95.2 fl 80.0-96.0 Normal ( applies to non-numeric results) [facility] ([facility]) Mean Corpuscular HGB Conc 32.6 g/dL 32.0-36.5 Normal (applies to non-numeric results) [facility]) Red Cell Distribution Width 12.2 % 11.5-14.5 Norm al (applies to non-numeric results) [facility] ([facility]) Platelet Count, Automated 263 10 150-450 Normal (applies to non-numeric results) [facility] ([facility]) Nucleated Red Blood Cell % 0.0 % 0-0 Normal (applies to n on-numeric results) [facility] ([facility]) ID Date Data Source [id number] 04/10/2020 12:55:00 PM EST [facility]) Name Value Range Interpretation Code Description Data Kathi rce(s) Supporting Document(s) Glucose, Fasting 84 mg/dL 70-100 Normal (applies to non-numeric results) [facility] ([facility]) Blood Urea Nitrogen 17 mg/dL 7-18 Normal (applies to non-nume kelly results) [facility] ([facility]) Glomerular Filtration Rate Laboratory test result Normal (applies to non- numeric results) [facility] ([facility]) <content>Units are mL/min/1.73 m2</content>
<content></content>
<content>Chronic Kidney Disease Staging per NKF:</content>
<content></content>
<content>Stage I & II GFR >=60 Normal to Mildly Decreased</content>
<content>Stage III GFR 30- 59 Moderately Decreased</content>
<content>Stage IV GFR 15-29 Severely Decreased</content>
<content>Stage V GFR <15 Very Little GFR Left</content>
<content>ESRD GFR <15 on BUILDING SERVICES TECHNICIAN</content>
<content></content> Creatinine For GFR 0.69 mg/dL 0.55-1.30 Normal (applies to non -numeric results) [facility] ([facility]) Sodium Level 141 meq/L 136-145 Normal (applies to non-numeric res ults) [facility] ([facility]) Potassium Serum 4.0 meq/L 3.5-5.1 Normal (applies to non-numeric results) [facility] ([facility]) Chloride Level 107 meq/L 98-107 Normal (applies to non-numeric r esults) [facility] ([facility]) Carbon Dioxide Level 27 meq/L 21-32 Normal (applies to non-num pop results) [facility] ([facility]) Anion Gap 7 meq/L 8-16 Below low normal [facility] ( [facility]) Calcium Level 8.6 mg/dL 8.8-10.2 Below low normal [facility] ([facility]) Ast/Sgot 40 U/L 7-37 Above high normal [facility] ([facility]) Alt/SGPT 69 U/L 12-78 Normal (applies to non-numeric resul ts) [facility] ([facility]) Alkaline Phosphatase 95 U/L 45-117 Normal (applies to non-num pop results) [facility] ([facility]) Bilirubin,Total 0.5 mg/dL 0.2-1.0 Normal (applies to non-numeric results) [facility] ([facility]) Total Protein 5.7 GM/DL 6.4-8.2 Below low normal [facility] Albumin 3.4 GM/DL 3.2-5.2 Normal (applies to non-numeric resul ts) [facility] ([facility]) Albumin/Globulin Ratio 1.5 1.2-2.2 Normal (applies to non-n umeric results) [facility] ([facility]) ID Date Data Source [id number] 04/10/2020 12:55:00 PM EST [facility] ([facility]) Name Value Range Interpretation Code Description Data Kathi rce(s) Supporting Document(s) CPK Creatine Phosphokinase 47 U/L 26-192 Queenie l (applies to non-numeric results) [facility] ([facility]) MB/CK Relative Index 2.55 Normal (applies to non-num pop results) [facility] ([facility]) <content>DIAGNOSIS CRITERIA</content>
<content>MMB ng/ml Relative Index (RI)</content>
<content>NON-AMI < or = 5 N/A</content>
<content>NGUYEN ZONE > 5 < or = 4</content>
<content>AMI > 5 > 4</content>
<content></content> CK-MB Value Mass 1.2 ng/mL Normal (applies to non-numeric results) [facility] ([facility]) Troponin I Laboratory test result Normal (applies to non-n umeric results) [facility] ([facility]) <content>Troponin I Reference Interval f or Siemens Volant LOCI:</content>
<content></content>
<content>99th Percentile= 0.00-0.045 ng/ml</content>
<content></content>
<content>Risk Stratification:</content>
<content><= 0.10 ng/ml Decreased Risk for Adverse Clinical</content>
<content>Events.</content>
<content>0.10-1.50 ng/ml Increased Risk for Adverse Clinical</content>
<content>Events. Evaluation of additional</content>
<content>criterion and/or repeat testing in 2-6</content>
<content>hours is suggested to rule out myocardial</content>
<content>damage.</content>
<content>>= 1.50 ng/ml Indicative of Myocardial Injury.</content>
<content></content> ID Date Data Source [id number] 04/10/2020 08:45:00 AM EST [facility] ([facility]) Name Value Range Interpretation Code Description Data Kathi rce(s) Supporting Document(s) Laboratory test finding (navigational concept) 15.8 s 1 2.1-14.4 Above high normal [facility] ([facility]) Laboratory test finding (navigational concept) 1.3 Normal (applies to non- numeric results) [facility] ([facility]) ID Date Data Source [id number] 04/10/2020 08:34:00 AM EST [facility] ([facility]) Name Value Range Interpretation Code Description Data Kathi rce(s) Supporting Document(s) Laboratory test finding (navigational concept) 0.00 ng/mL 0 .00-0.08 Normal (applies to non-numeric results) [facility] ([facility] ID Date Data Source [id number] 04/10/2020 08:33:00 AM EST [facility] ([facility]) Name Value Range Interpretation Code Description Data Kathi rce(s) Supporting Document(s) Laboratory test finding (navigational concept) 50.0 % 3 8.0-51.0 Normal (applies to non-numeric results) [facility] ([facility]) Laboratory test finding (navigational concept) 140 meq/L 1 36-145 Normal (applies to non-numeric results) [facility] ([facility]) Laboratory test finding (navigational concept) 132 mg/dL 7 0-105 Above high normal [facility] ([facility]) Laboratory test finding (navigational concept) 4.1 meq/L 3 .5-5.1 Normal (applies to non-numeric results) [facility] ([facility]) Laboratory test finding (navigational concept) 4.7 mg/dL 4 .5-5.3 Normal (applies to non-numeric results) [facility] ([facility]) Laboratory test finding (navigational concept) 101 meq/L 9 8-109 Normal (applies to non-numeric results) [facility] ([facility]) Laboratory test finding (navigational concept) 29.0 MM/L 2 3.0-27.0 Above high normal [facility] ([facility]) Laboratory test finding (navigational concept) 20 mg/dL 8 -26 Normal (applies to non-numeric results) [facility] ([facility]) Laboratory test finding (navigational concept) 0.8 mg/dL 0 .6-1.3 Normal (applies to non-numeric results) [facility] ([facility]) ID Date Data Source [id number] 04/10/2020 08:30:00 AM EST [facility] ([facility]) Name Value Range Interpretation Code Description Data Kathi rce(s) Supporting Document(s) White Blood Count 5.9 10 4.0-10.0 Normal (applies to non-numeri c results) [facility] ([facility]) Red Blood Count 5.60 10 4.00-5.40 Above high normal [facility] ([facility]) Hemoglobin 17.4 g/dL 12.0-15.5 Above high normal [facility] ([facility]) Hematocrit 53.3 % 36.0-47.0 Above high normal [facility] ([facility]) Mean Corpuscular Volume 95.2 fl 80.0-96.0 Normal ( applies to non-numeric results) [facility] ([facility]) Red Cell Distribution Width 12.2 % 11.5-14.5 Norm al (applies to non-numeric results) [facility] ([facility]) Mean Corpuscular Hemoglobin 31.1 pg 27.0-33.0 Norm al (applies to non-numeric results) [facility] ([facility]) Mean Corpuscular HGB Conc 32.6 g/dL 32.0-36.5 Normal (applies to non-numeric results) [facility] ([facility]) Nucleated Red Blood Cell % 0.0 % 0-0 Normal (applies to n on-numeric results) [facility] ([facility]) Platelet Count, Automated 263 10 150-450 Normal (applies to non-numeric results) [facility] ([facility]) ID Date Data Source [id number] 04/10/2020 08:30:00 AM EST [facility] ([facility]) Name Value Range Interpretation Code Description Data Kathi rce(s) Supporting Document(s) Thyrotropin [Units/volume] in Serum or Plasma 2.030 uIU/ML 0. 358-3.740 Normal (applies to non-numeric results) [facility] ([facility]) ID Date Data Source [id number] 04/07/2020 11:45:00 AM EST [facility] [facility]) Name Value Range Interpretation Code Description Data Kathi rce(s) Supporting Document(s) EKG Laboratory test result [facility] ([facility]) ID Date Data Source [id number] 04/03/2020 10:53:00 AM EST [facility] ([facility]) Name Value Range Interpretation Code Description Data Kathi rce(s) Supporting Document(s) Magnesium Level 2 [facility] ([facility]) ID Date Data Source [id number] 04/03/2020 10:53:00 AM EST [facility] ([facility]) Name Value Range Interpretation Code Description Data Kathi rce(s) Supporting Document(s) Alanine aminotransferase [Enzymatic activity/volume] in Serum or Pl asma 61 [facility] ([facility]) Calcium [Mass/volume] in Serum or Plasma 8.6 [facility] ([facility]) Albumin [Mass/volume] in Serum or Plasma 3.3 [facility] ([facility]) Carbon dioxide, total [Moles/volume] in Serum or Plasma 27 [facility] ([facility]) Alkaline phosphatase [Enzymatic activity/volume] in Serum or Plasma 9 7 [facility] ([facility]) Potassium [Moles/volume] in Serum or Plasma 4.4 [facility] ([facility]) Chloride [Moles/volume] in Serum or Plasma 104 [facility] ([facility]) Protein [Mass/volume] in Serum or Plasma 5.8 [facility] ([facility]) Sodium 139 [facility] ([facility] Urea nitrogen [Mass/volume] in Serum or Plasma 26 [facility] ([facility]) Aspartate aminotransferase [Enzymatic activity/volume] in Serum or Plasma 30 [facility] ([facility]) Glucose 86 70-100 [facility] Creatinine For GFR 0.81 [facility] ([facility]) ID Date Data Source [id number] 04/03/2020 10:53:00 AM EST [facility] ([facility]) Name Value Range Interpretation Code Description Data Kathi rce(s) Supporting Document(s) White Blood Count 7.7 4.3-10.9 [facility] ([facility]) Red Blood Count 5.34 4.70-6.20 [facility] ([facility]) Platelets 268 130-400 [facility] Hemoglobin 17.1 13.0-17.0 [facility] ([facility]) Hematocrit 50.9 39.0-50.0 [facility] ([facility]) ID Date Data Source [id number] 04/02/2020 04:00:00 AM EST [facility] Name Value Range Interpretation Code Description Data Kathi rce(s) Supporting Document(s) SARS coronavirus 2 RNA [Presence] in Res piratory specimen by RISHABH with probe detection [facility] This lab was ordered by [facility] a nd reported by [facility]. ID Date Data Source [id number] 03/30/2020 06:13:00 PM EST [facility] ([facility]) Name Value Range Interpretation Code Description Data Kathi rce(s) Supporting Document(s) Thyrotropin [Units/volume] in Serum or Plasma 2.050 uIU/ML 0. 358-3.740 Normal (applies to non-numeric results) [facility] ([facility]) Digoxin [Mass/volume] in Serum or Plasma 0.1 ng/mL 0.5-2.0 Below low normal [facility] ([facility]) Thyroxine (T4) free [Mass/volume] in Serum or Plasma 1.30 ng/dL 0.76-1.46 Normal (applies to non-numeric results) [facility] ([facility]) ID Date Data Source [id number] 03/30/2020 06:13:00 PM EST [facility] ([facility]) Name Value Range Interpretation Code Description Data Kathi rce(s) Supporting Document(s) Glucose, Fasting 80 mg/dL 70-100 Normal (applies to non-numeric results) [facility] ([facility]) Blood Urea Nitrogen 22 mg/dL 7-18 Above high normal [facility] ([facility]) Creatinine For GFR 0.84 mg/dL 0.55-1.30 Normal (applies to non -numeric results) [facility] ([facility]) Sodium Level 141 meq/L 136-145 Normal (applies to non-numeric res ults) [facility] ([facility]) Glomerular Filtration Rate Laboratory test result Normal (applies to non- numeric results) [facility] ([facility]) <content>Units are mL/min/1.73 m2</content>
<content></content>
<content>Chronic Kidney Disease Staging per NKF:</content>
<content></content>
<content>Stage I & II GFR >=60 Normal to Mildly Decreased</content>
<content>Stage III GFR 30- 59 Moderately Decreased</content>
<content>Stage IV GFR 15-29 Severely Decreased</content>
<content>Stage V GFR <15 Very Little GFR Left</content>
<content>ESRD GFR <15 on BUILDING SERVICES TECHNICIAN</content>
<content></content> Chloride Level 108 meq/L 98-107 Above high normal [facility] ([facility]) Potassium Serum 4.1 meq/L 3.5-5.1 Normal (applies to non-numeric results) [facility] ([facility]) Carbon Dioxide Level 29 meq/L 21-32 Normal (applies to non-num pop results) [facility] ([facility]) Anion Gap 4 meq/L 8-16 Below low normal [facility] ( [facility]) Calcium Level 8.7 mg/dL 8.8-10.2 Below low normal [facility] T ([facility]) ID Date Data Source [id number] 03/30/2020 06:13:00 PM EST [facility] ([facility]) Name Value Range Interpretation Code Description Data Kathi rce(s) Supporting Document(s) Ast/Sgot 63 U/L 7-37 Above high normal [facility] ([facility]) Alt/SGPT 100 U/L 12-78 Above high normal [facility] ([facility]) Alkaline Phosphatase 103 U/L 45-117 Normal (applies to non-num pop results) [facility] Bilirubin,Direct 0.2 mg/dL 0.0-0.2 Normal (applies to non-numeric results) [facility] Bilirubin,Total 0.6 mg/dL 0.2-1.0 Normal (applies to non-numeric results) [facility] ([facility]) Total Protein 6.1 GM/DL 6.4-8.2 Below low normal [facility] T ([facility]) Albumin 3.6 GM/DL 3.2-5.2 Normal (applies to non-numeric resul ts) [facility]) Albumin/Globulin Ratio 1.4 1.2-2.2 Normal (applies to non-n umeric results) [facility] ([facility]) ID Date Data Source [id number] 03/30/2020 06:13:00 PM EST [facility] ([facility]) Name Value Range Interpretation Code Description Data Kathi rce(s) Supporting Document(s) CK-MB Value Mass 3.0 ng/mL Normal (applies to non-numeric results) [facility] ([facility]) CPK Creatine Phosphokinase 82 U/L 26-192 Queenie l (applies to non-numeric results) [facility] ([facility]) MB/CK Relative Index 3.66 Normal (applies to non-num pop results) [facility] ([facility]) <content>DIAGNOSIS CRITERIA</content>
<content>MMB ng/ml Relative Index (RI)</content>
<content>NON-AMI < or = 5 N/A</content>
<content>NGUYEN ZONE > 5 < or = 4</content>
<content>AMI > 5 > 4</content>
<content></content> Troponin I Laboratory test result Normal (applies to non-n umeric results) [facility] ([facility]) <content>Troponin I Reference Interval f or Siemens Volant LOCI:</content>
<content></content>
<content>99th Percentile= 0.00-0.045 ng/ml</content>
<content></content>
<content>Risk Stratification:</content>
<content><= 0.10 ng/ml Decreased Risk for Adverse Clinical</content>
<content>Events.</content>
<content>0.10-1.50 ng/ml Increased Risk for Adverse Clinical</content>
<content>Events. Evaluation of additional</content>
<content>criterion and/or repeat testing in 2-6</content>
<content>hours is suggested to rule out myocardial</content>
<content>damage.</content>
<content>>= 1.50 ng/ml Indicative of Myocardial Injury.</content>
<content></content> ID Date Data Source [id number] 03/30/2020 06:13:00 PM EST [facility] ([facility]) Name Value Range Interpretation Code Description Data Kathi rce(s) Supporting Document(s) aPTT in Platelet poor plasma by Coagulation assay 30.0 s 24.2-38.5 Normal (applies to non-numeric results) [facility] ([facility]) ID Date Data Source [id number] 03/30/2020 06:13:00 PM EST [facility] ([facility]) Name Value Range Interpretation Code Description Data Kathi rce(s) Supporting Document(s) Prothrombin Time 14.3 s 12.5-14.3 Above high normal [facility] ([facility]) Inr 1.09 Normal (applies to non-numeric resul ts) [facility] ([facility]) THERAPUTIC HUMAN INR VALUES INDICATIONS NORMAL RANGES PROPHYLAXIS/TREATMENT OF: VENOUS THROMBOSIS 2.0-3.0 PULMONARY EMBOLISM 2.0-3.0 PREVENTION OF SYSTEMIC EMBOLISM FROM: TISSUE HEART VALVES 2.0-3.0 ACUTE MYOCARDIAL INFARCTION 2.0-3.0 VALVULAR HEART DISEASE 2.0-3.0 ATRIAL FIBRILLATION 2.0-3.0 MECHANICAL VALVES(HIGH RISK) 2.5-3.5 RECURRENT MYOCARDIAL INFARCTION 2.5-3.5 ID Date Data Source [id number] 03/30/2020 06:13:00 PM EST [facility] ([facility]) Name Value Range Interpretation Code Description Data Kathi rce(s) Supporting Document(s) Red Blood Count 5.01 10 4.00-5.40 Normal (applies to non-numeric results) [facility] ([facility]) White Blood Count 10.1 10 4.0-10.0 Above high normal [facility] ([facility]) Hematocrit 48.1 % 36.0-47.0 Above high normal [facility] ([facility]) Hemoglobin 16.3 g/dL 12.0-15.5 Above high normal [facility] ([facility]) Mean Corpuscular HGB Conc 33.9 g/dL 32.0-36.5 Normal (applies to non-numeric results) [facility] ([facility]) Mean Corpuscular Volume 96.0 fl 80.0-96.0 Normal ( applies to non-numeric results) [facility] ([facility]) Mean Corpuscular Hemoglobin 32.5 pg 27.0-33.0 Norm al (applies to non-numeric results) [facility] ([facility]) Red Cell Distribution Width 12.6 % 11.5-14.5 Norm al (applies to non-numeric results) [facility] ([facility]) Neutrophils % 74.0 % 36.0-66.0 Above high normal [facility] NT ([facility]) Platelet Count, Automated 259 10 150-450 Normal (applies to non-numeric results) [facility] ([facility]) Lymph % 16.2 % 24.0-44.0 Below low normal [facility] ( [facility]) [place] % 9.0 % 0.0-5.0 Above high normal [facility] ([facility]) Eos % 0.1 % 0.0-3.0 Normal (applies to non-numeric resul ts) [facility] ([facility]) Immature Granulocyte % 0.3 % 0-3.0 Normal (applies to non-n umeric results) [facility] ([facility]) Baso % 0.4 % 0.0-1.0 Normal (applies to non-numeric resul ts) [facility] ([facility]) Neutrophils # 7.5 10 1.5-8.5 Normal (applies to non-numeric re sults) [facility] ([facility]) Nucleated Red Blood Cell % 0.0 % 0-0 Normal (applies to n on-numeric results) [facility] ([facility]) [place] # 0.9 10 0.0-0.8 Above high normal [facility] ([facility]) Lymph # 1.6 10 1.5-5.0 Normal (applies to non-numeric resul ts) [facility] ([facility]) Eos # 0.0 10 0.0-0.5 Normal (applies to non-numeric resul ts) [facility] ([facility]) Baso # 0.0 10 0.0-0.2 Normal (applies to non-numeric resul ts) [facility] ([facility]) ID Date Data Source [id number] 03/30/2020 06:11:00 PM EST [facility] ([facility]) Name Value Range Interpretation Code Description Data Kathi rce(s) Supporting Document(s) Magnesium [Mass/volume] in Serum or Plasma 2.3 mg/dL 1.8-2 .4 Normal (applies to non-numeric results) [facility] ([facility]) Ethanol [Mass/volume] in Serum or Plasma 0.003 % 0.000-0 .010 Normal (applies to non-numeric results) [facility] ([facility]) ID Date Data Source [id number] 10/18/2019 11:04:00 AM EDT [facility] ([facility]) Name Value Range Interpretation Code Description Data Kathi rce(s) Supporting Document(s) Alanine aminotransferase [Enzymatic activity/volume] in Serum or Pl asma 66 [facility] ([facility]) Albumin [Mass/volume] in Serum or Plasma 3.7 [facility] ([facility]) Carbon dioxide, total [Moles/volume] in Serum or Plasma 27 [facility] ([facility]) Chloride [Moles/volume] in Serum or Plasma 109 [facility] ([facility]) Calcium [Mass/volume] in Serum or Plasma 8.9 [facility] ([facility]) Alkaline phosphatase [Enzymatic activity/volume] in Serum or Plasma 8 1 [facility] ([facility]) Aspartate aminotransferase [Enzymatic activity/volume] in Serum or Plasma 33 [facility] ([facility]) Sodium 143 [facility] ([facility] Protein [Mass/volume] in Serum or Plasma 6.4 [facility] ([facility]) Potassium [Moles/volume] in Serum or Plasma 4.4 [facility] ([facility]) Creatinine For GFR 0.76 [facility] ([facility]) Urea nitrogen [Mass/volume] in Serum or Plasma 14 [facility] ([facility]) Glucose 90 70-100 [facility] ([facility] ID Date Data Source [id number] 10/18/2019 11:04:00 AM EDT [facility] ([facility]) Name Value Range Interpretation Code Description Data Kathi rce(s) Supporting Document(s) White Blood Count 5.5 4.0-10.0 [facility] ([facility]) Hematocrit 44.0 [facility] ([facility]) Hemoglobin 14.6 [facility] ([facility]) Platelets 245 150-450 [facility] ([facility] Red Blood Count 4.72 4.00-5.40 [facility] ([facility]) ID Date Data Source [id number] 08/30/2019 10:18:00 AM EDT [facility] ([facility]) Name Value Range Interpretation Code Description Data Kathi rce(s) Supporting Document(s) Tibc % Saturation 52.4 [facility] ([facility]) Iron binding capacity [Mass/volume] in Serum or Plasma 292 [facility] ([facility]) Iron 153 50-170 [facility] ([facility] ID Date Data Source [id number] 07/29/2019 10:16:00 AM EDT [facility] ([facility]) Name Value Range Interpretation Code Description Data Kathi rce(s) Supporting Document(s) Tibc % Saturation 40.3 [facility] ([facility]) Iron 129 50-170 [facility] ([facility] Iron binding capacity [Mass/volume] in Serum or Plasma 320 [facility] ([facility]) ID Date Data Source [id number] 07/29/2019 10:16:00 AM EDT [facility] ([facility]) Name Value Range Interpretation Code Description Data Kathi rce(s) Supporting Document(s) White Blood Count 8.8 4.0-10.0 [facility] ([facility]) Platelets 260 150-450 [facility] ([facility] Red Blood Count 4.81 4.0-5.40 [facility] ([facility]) Hematocrit 44.8 [facility] ([facility]) Hemoglobin 15.6 [facility] ([facility]) ID Date Data Source [id number] 07/02/2019 10:08:00 AM EDT [facility] Name Value Range Interpretation Code Description Data Kathi rce(s) Supporting Document(s) Red Blood Count 4.92 4.00-5.40 [facility] ([facility]) White Blood Count 6.4 4.0-10.0 [facility] ([facility]) Hematocrit 46.3 [facility] ([facility]) Platelets 297 150-450 [facility] ([facility] Hemoglobin 15.5 [facility] ([facility]) ID Date Data Source [id number] 07/02/2019 10:08:00 AM EDT [facility] Name Value Range Interpretation Code Description Data Kathi rce(s) Supporting Document(s) Albumin [Mass/volume] in Serum or Plasma 3.8 [facility] ([facility]) Calcium [Mass/volume] in Serum or Plasma 9.3 [facility] ([facility]) Chloride [Moles/volume] in Serum or Plasma 107 [facility] ([facility]) Carbon dioxide, total [Moles/volume] in Serum or Plasma 32 [facility] ([facility]) Alanine aminotransferase [Enzymatic activity/volume] in Serum or Pl asma 90 [facility] ([facility]) Potassium [Moles/volume] in Serum or Plasma 4.2 [facility] ([facility]) Protein [Mass/volume] in Serum or Plasma 6.8 [facility] ([facility]) Alkaline phosphatase [Enzymatic activity/volume] in Serum or Plasma 9 0 [facility] ([facility]) Urea nitrogen [Mass/volume] in Serum or Plasma 19 [facility] ([facility]) Sodium 142 [facility] ([facility] Glucose 79 70-100 [facility] ([facility]) Aspartate aminotransferase [Enzymatic activity/volume] in Serum or Plasma 41 [facility] ([facility]) Creatinine For GFR 0.86 [facility] ([facility]) Procedure Social History Code Duration Value Status Description Data Source(s ) Smoking 04/19/2020 12:00:00 AM EST Patient is a former smoker completed Patient is a former smoker [facility] ([facility]) Alcohol intake 04/13/2020 12:00:00 AM EST Not Currently completed [facility] Smoking 04/13/2020 12:00:00 AM EST Former smoker completed Former smoker [facility] Vital Signs ID Date Data Source [id number] Name Value Range Interpretation Code Description Data Source(s) [employer] body weight 115 [lb_av] 115 [lb_av] [facility] ([facility]) Oxygen saturation in Arterial blood by Pulse oximetry 98 % 98 % [facility] ([facility]) Body temperature 97.8 [degF] 97.8 [degF] [facility] ([facility]) Respiratory rate 18 /min 18 /min [facility] ( [facility]) Heart rate 57 /min 57 /min [facility] ([facility]) Body mass index (BMI) [Ratio] 23.1 kg/m2 23.1 k g/m2 [facility] ([facility]) Body weight 130.38 [lb_av] 130.38 [lb_av] [facility] T ([facility]) Body height 63 [in_i] 63 [in_i] [facility] ([facility]) 5'3" Diastolic blood pressure 84 mm[Hg] 84 mm[Hg] [facility] ([facility]) Systolic blood pressure 148 mm[Hg] 148 mm[Hg] [facility] Diastolic blood pressure--sitting 86 mm[Hg] 86 mm[Hg] [facility]) CBP, adult cuff/LA Systolic blood pressure--sitting 164 mm[Hg] 164 mm[Hg] [facility] ([facility]) CBP, adult cuff/LA Heart rate 51 /min 51 /min [facility] ([facility]) Body mass index (BMI) [Ratio] 23.0 kg/m2 23.0 k g/m2 [facility] ([facility]) Body height 63 [in_i] 63 [in_i] [facility] ([facility]) 5'3" Body weight 130.00 [lb_av] 130.00 [lb_av] [facility] ([facility]) Oxygen saturation in Arterial blood by Pulse oximetry 97 % 97 % [facility] Respiratory rate 16 /min 16 /min [facility] Body temperature 36.67 Haley 36.67 Haley [facility] Heart rate 62 /min 62 /min [facility] Diastolic blood pressure 88 mm[Hg] 88 mm[Hg] [facility] Systolic blood pressure 150 mm[Hg] 150 mm[Hg] [facility] Body mass index (BMI) [Ratio] 23.03 kg/m2 23.03 kg/m2 [facility] Body weight 58.968 kg 58.968 kg [facility] Body height 160 cm 160 cm [facility] [employer] body weight 115 [lb_av] 115 [lb_av] [facility] ([facility]) Oxygen saturation in Arterial blood by Pulse oximetry 98 % 98 % [facility] ([facility]) Body temperature 98.1 [degF] 98.1 [degF] [facility] Respiratory rate 18 /min 18 /min [facility] ( [facility]) Heart rate 63 /min 63 /min [facility] Body mass index (BMI) [Ratio] 23.4 kg/m2 23.4 k g/m2 [facility] ([facility]) Body weight 132.25 [lb_av] 132.25 [lb_av] [facility] T ([facility]) Body height 63 [in_i] 63 [in_i] [facility] ([facility]) 5'3" Diastolic blood pressure 74 mm[Hg] 74 mm[Hg] [facility] ([facility]) Systolic blood pressure 124 mm[Hg] 124 mm[Hg] M [facility] ([facility]) Diastolic blood pressure--sitting 78 mm[Hg] 78 mm[Hg] [facility] ([facility]) Systolic blood pressure--sitting 130 mm[Hg] 130 mm[Hg] [facility] ([facility]) Heart rate 67 /min 67 /min [facility] ([facility]) Body mass index (BMI) [Ratio] 24.3 kg/m2 24.3 k g/m2 [facility] ([facility]) Body height 63 [in_i] 63 [in_i] [facility] ([facility]) 5'3" Body weight 137.00 [lb_av] 137.00 [lb_av] [facility] T ([facility]) [employer] body weight 115 [lb_av] 115 [lb_av] [facility] T ([facility]) Oxygen saturation in Arterial blood by Pulse oximetry 98 % 98 % [facility] ([facility]) Body temperature 98.8 [degF] 98.8 [degF] [facility] ([facility]) Respiratory rate 18 /min 18 /min [facility] ( [facility]) Heart rate 77 /min 77 /min [facility] ([facility]) Body mass index (BMI) [Ratio] 24.7 kg/m2 24.7 k g/m2 [facility] ([facility]) Body weight 139.50 [lb_av] 139.50 [lb_av] [facility] ([facility]) Body height 63 [in_i] 63 [in_i] [facility] ([facility]) 5'3" Diastolic blood pressure 74 mm[Hg] 74 mm[Hg] [facility] ([facility]) Systolic blood pressure 128 mm[Hg] 128 mm[Hg] M [facility] ([facility]) [employer] body weight 115 [lb_av] 115 [lb_av] [facility] ([facility]) Oxygen saturation in Arterial blood by Pulse oximetry 99 % 99 % [facility] ([facility]) Body temperature 98.1 [degF] 98.1 [degF] [facility] ([facility]) Respiratory rate 18 /min 18 /min [facility] ( [facility]) Heart rate 70 /min 70 /min [facility] ([facility]) Body mass index (BMI) [Ratio] 24.4 kg/m2 24.4 k g/m2 [facility] ([facility]) Body weight 137.50 [lb_av] 137.50 [lb_av] MEDEN T ([facility]) Body height 63 [in_i] 63 [in_i] MEDENT ([facility] 5'3" Diastolic blood pressure 78 mm[Hg] 78 mm[Hg] MEDENT ([facility]) Systolic blood pressure 132 mm[Hg] 132 mm[Hg] M EDENT ([facility]) Oxygen saturation in Arterial blood by Pulse oximetry 100 % 100 % [facility] Body temperature 97.9 [degF] 97.9 [degF] MEDENT ([facility]) Respiratory rate 18 /min 18 /min MEDENT ( [facility]) Heart rate 53 /min 53 /min MEDENT ([facility]) Body mass index (BMI) [Ratio] 24.2 kg/m2 24.2 k g/m2 MEDENT ([facility]) Body weight 136.38 [lb_av] 136.38 [lb_av] MEDEN T ([facility]) Body height 63 [in_i] 63 [in_i] MEDENT ([facility]) 5'3" Diastolic blood pressure 80 mm[Hg] 80 mm[Hg] MEDENT ([facility]) Systolic blood pressure 136 mm[Hg] 136 mm[Hg] M EDENT ([facility]) Diastolic blood pressure--sitting 68 mm[Hg] 68 mm[Hg] MEDENT ([facility]) adult cuff, Ra Systolic blood pressure--sitting 120 mm[Hg] 120 mm[Hg] MEDENT ([facility]) adult cuff, Ra Heart rate 71 /min 71 /min MEDENT ([facility]) Body mass index (BMI) [Ratio] 23.7 kg/m2 23.7 k g/m2 MEDENT ([facility]) Body height 63 [in_i] 63 [in_i] MEDENT ([facility]) 5'3" Body weight 134.00 [lb_av] 134.00 [lb_av] MEDEN T ([facility]) Oxygen saturation in Arterial blood by Pulse oximetry 99 % 99 % MEDENT ([facility]) Body temperature 98.1 [degF] 98.1 [degF] MEDENT ([facility]) Respiratory rate 18 /min 18 /min MEDENT ( [facility]) Heart rate 49 /min 49 /min MEDENT ([facility]) Body mass index (BMI) [Ratio] 23.8 kg/m2 23.8 k g/m2 MEDENT ([facility]) Body weight 134.25 [lb_av] 134.25 [lb_av] MEDEN T ([facility]) Body height 63 [in_i] 63 [in_i] MEDENT ([facility]) 5'3" Diastolic blood pressure 64 mm[Hg] 64 mm[Hg] MEDENT ([facility]) Systolic blood pressure 132 mm[Hg] 132 mm[Hg] M EDENT ([facility]) Patient Treatment Plan of Care Planned Activity Planned Date Details Description Data Source (s) Amlodipine 5 MG Oral Tablet 04/14/2020 12:00:00 AM [facility] rivaroxaban 20 MG Oral Tablet 04/13/2020 12:00:00 AM EST [facility] rivaroxaban 15 MG Oral Tablet [facility] Diltiazem Hydrochloride 30 MG Oral Tablet [facility] Atenolol [address] [facility]
--- NOTE | 2020-05-22 16:46 | REP ---
INDICATION: Abdominal Pain. COMPARISON: Comparison chest x-ray 14 April 2020.. TECHNIQUE: Four view abdominal series including PA chest obtained upright. FINDINGS: Upright chest radiograph is unremarkable. There is no evidence of infiltrate or free subdiaphragmatic air. Heart size is normal. Pulmonary vasculature is not increased. Pleural angles are sharp. Supine and erect views of the abdomen demonstrate a normal bowel gas pattern. The psoas margins and the flank stripes are intact. There is no evidence of mass, organomegaly, or pathologic calcification. IMPRESSION: Negative acute abdominal series. <Electronically signed by Livan Walters > 05/22/20 [id number]
[2020-05-22 16:58] LABS: BASO % 0.4 % (0.0-1.0); EOS % 0.5 % (0.0-3.0); HEMATOCRIT 42.5 % (36.0-47.0); HEMOGLOBIN 14.7 g/dl (12.0-15.5); LYMPH % 25.7 % (24.0-44.0); MEAN CORPUSCULAR HGB CONC 34.6 g/dl (32.0-36.5); MEAN CORPUSCULAR VOLUME 89.7 fl (80.0-96.0); MONO # 0.7 10^3/uL (0.0-0.8); MONO % 9.6 % (2.0-8.0); NEUTROPHILS # 4.8 10^3/uL (1.5-8.5); NEUTROPHILS % 63.4 % (36.0-66.0); PLATELET COUNT, AUTOMATED 249 10^3/uL (150-450); RED BLOOD COUNT 4.74 10^6/uL (4.00-5.40); WHITE BLOOD COUNT 7.6 10^3/uL (4.0-10.0)
[2020-05-22 17:25] LABS: ALBUMIN 3.7 GM/DL (3.2-5.2); ALT/SGPT 49 U/L (12-78); BILIRUBIN,DIRECT 0.1 MG/DL (0.0-0.2); BILIRUBIN,TOTAL 0.4 MG/DL (0.2-1.0); BLOOD UREA NITROGEN 21 MG/DL (7-18); CALCIUM LEVEL 9.2 MG/DL (8.8-10.2); CARBON DIOXIDE LEVEL 27 MEQ/L (21-32); CHLORIDE LEVEL 107 MEQ/L (98-107); CK-MB VALUE MASS 1.2 NG/ML (<3.6); CPK CREATINE PHOSPHOKINASE 58 U/L (26-192); CREATININE FOR GFR 0.86 MG/DL (0.55-1.30); GLOMERULAR FILTRATION RATE > 60.0 (>45); GLUCOSE, FASTING 77 MG/DL (70-100); LIPASE 371 U/L (73-393); MB/CK RELATIVE INDEX 2.07 (< OR =4); SODIUM LEVEL 142 MEQ/L (136-145); TOTAL PROTEIN 6.5 GM/DL (6.4-8.2); TROPONIN I < 0.02 NG/ML (< 0.10)
[2020-05-22 18:30] VITALS: BP 160/82
--- NOTE | 2020-05-22 20:53 | ECGEPIP ---
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
== END 2020-05-22 18:44 | disposition home or self-care (01) ==
LOC: M ED 15:30
DX: R10.10 Upper abdominal pain, unspecified (principal); I48.91 Unspecified atrial fibrillation; Z79.01 Long term (current) use of anticoagulants; Z88.2 Allergy status to sulfonamides

== ENCOUNTER → 2020-05-24 | Outpatient (CLI) | payer MEDICARE, OTHER ==
[~2020-05-24] MED LIST changes: +ATIV1TAB10 PO; +BISO5TAB14; +E-Z-GAS II EFFERVESCENT PACKET (SODIUM BICARB./CITRIC ACID/SIMETHICONE) As Ordered ONE; +E-Z-HD 98% w/w 340GM SUSP BTL As Ordered ONE; +E-Z-PAQUE 96% w/w SUSP 176GM BTL As Ordered ONE; +VALS1TAB66
--- NOTE | 2020-05-24 16:58 | REP ---
INDICATION: UPPER ABD PAIN. COMPARISON: None TECHNIQUE: This procedure was performed by Farzana Kaufman [facility], under the direct supervision of Dr. Walters. Images were reviewed with Dr. Walters prior to dictation. Liquid barium and gas producing crystals were given in the erect position, as well as liquid barium in the prone oblique position in order to perform a double contrast upper GI examination. FINDINGS: The food inspector film shows no organomegaly or pathological masses. The intestinal gas pattern is unremarkable. The oral and pharyngeal stages of deglutition were unremarkable. Esophageal transport is prompt and efficient and there is no evidence of esophagitis, stricture, or mucosal ring. There is no evidence of a hiatal hernia. There was no gastroesophageal reflux noted . The stomach busch are normally outlined. The rugal folds are smooth and regular. There is no gastritis, neoplasm, or ulcerative disease. The duodenal busch are normally outlined. The mucosal folds are smooth and regular. There is no duodenitis, peptic ulcer disease or neoplasm. The visualized portion of the proximal small bowel appears normal in course and caliber. IMPRESSION: Unremarkable upper GI examination. 0.4 minutes of fluoroscopy time was utilized for this procedure. Some fluoroscopic images are performed with last image hold technology. These images require no additional radiation. <Electronically signed by Farzana Kaufman > 05/24/20 1637 <Electronically signed by Livan Walters > 05/24/20 0225
== END ==
LOC: M RAD 07:56
PROVIDERS: ATTEND Emergency Medicine
DX: R10.9 Unspecified abdominal pain (principal)

== ENCOUNTER 2020-05-26 12:11 | Emergency (ER) | payer MEDICARE, OTHER ==
[~2020-05-26] VITALS: Ht 160 cm; Wt 59.1 kg
[~2020-05-26 12:11] MED LIST changes: -ATIV1TAB10 PO; -E-Z-GAS II EFFERVESCENT PACKET (SODIUM BICARB./CITRIC ACID/SIMETHICONE) As Ordered ONE; -E-Z-HD 98% w/w 340GM SUSP BTL As Ordered ONE; -E-Z-PAQUE 96% w/w SUSP 176GM BTL As Ordered ONE
--- OUTSIDE RECORDS SUMMARY | 2020-05-26 12:17 | CCD | Continuity of Care Document ---
Author Author Nela GARCIA Organization Unknown Address [address] [place] [address] Phone [phone] Care Team Providers Care Financial Intern Name Role Phone Drea Garcia D.O. AUTM Lara Lopez M.D. AUTM [phone] Problems Active Problems Provider Date Paroxysmal atrial [...] caps in the morning Unknown Berberine Complex [id number] Capsules Unknown Chlorella Capsules Unknown Vitamin D-3 [...] F O2 % BldC Oximetry 98 % Redig Body Weight 115 lb 04/07/2020 10:57am BP Systolic 124 mmHg BP Diastolic 74 mmHg Height 63 inches 5'3" Weight 132.25 lb BMI (Body Mass Index) 23.4 kg/m2 Heart Rate 63 /min Respiratory Rate 18 /min Body Temperature 98.1 F O2 % BldC Oximetry 98 % Redig Body Weight 115 lb Results Test Acquired Date Facility Test Result H/L Range Note CBC With Differential 05/22/2020 [facility] Outpatient Patti mcneill (Registration) [address], [place] [address] [phone] White Blood Count 7.6 10 Normal 4.0-10.0 Red Blood Count 4.74 10 Normal 4.00-5.40 Hemoglobin 14.7 g/dL Normal 12.0-15.5 Hematocrit 42.5 % Normal 36.0-47.0 Mean Corpuscular Volume 89.7 fl Normal 80.0-96.0 Mean Corpuscular Hemoglobin 31.0 pg Normal 27.0-33.0 Mean Corpuscular HGB Conc 34.6 g/dL Normal 32.0-36.5 Red Cell Distribution Width 12.0 % Normal 11.5-14.5 Platelet Count, Automated 249 10 Normal 150-450 Neutrophils % 63.4 % Normal 36.0-66.0 Lymph % 25.7 % Normal 24.0-44.0 [place] % 9.6 % High 2.0-8.0 Eos % 0.5 % Normal 0.0-3.0 Baso % 0.4 % Normal 0.0-1.0 Immature Granulocyte % 0.4 % Normal 0-3.0 Nucleated Red Blood Cell % 0.0 % Normal 0-0 Neutrophils # 4.8 10 Normal 1.5-8.5 Lymph # 2.0 10 Normal 1.5-5.0 [place] # 0.7 10 Normal 0.0-0.8 Eos # 0.0 10 Normal 0.0-0.5 Baso # 0.0 10 Normal 0.0-0.2 Cardiac Marker Panel 05/22/2020 [facility] Outpatient Test ing (Registration) [address] [place] [address] [phone] CPK Creatine Phosphokinase 58 U/L Normal 26-19 2 CK-MB Value Mass 1.2 NG/ML Normal <3.6 MB/CK Relative Index 2.07 Normal < Or =4 1 Troponin I < 0.02 NG/ML Normal < 0.10 2 Liver Profile 05/22/2020 [facility] Outpatient Testi ng (Registration) [address] [place] [address] [phone] Ast/Sgot 33 U/L Normal 7-37 Alt/SGPT 49 U/L Normal 12-78 Alkaline Phosphatase 101 U/L Normal 45-117 Bilirubin,Total 0.4 mg/dL Normal 0.2-1.0 Bilirubin,Direct 0.1 mg/dL Normal 0.0-0.2 Total Protein 6.5 GM/DL Normal 6.4-8.2 Albumin 3.7 GM/DL Normal 3.2-5.2 Albumin/Globulin Ratio 1.3 Normal 1.2-2.2 Basic Metabolic Profile 05/22/2020 [facility] Outpatient T esting (Registration) [address] [place], [place] [address] [phone] Glucose, Fasting 77 mg/dL Normal 70-100 Blood Urea Nitrogen 21 mg/dL High 7-18 Creatinine For GFR 0.86 mg/dL Normal 0.55-1.30 Glomerular Filtration Rate > 60.0 Normal >45 3 Sodium Level 142 mEq/L Normal 136-145 Potassium Serum 4.0 mEq/L Normal 3.5-5.1 Chloride Level 107 mEq/L Normal 98-107 Carbon Dioxide Level 27 mEq/L Normal 21-32 Anion Gap 8 mEq/L Normal 8-16 Calcium Level 9.2 mg/dL Normal 8.8-10.2 Laboratory test finding 05/22/2020 [facility] Outpatient T esting (Registration) [address] [place], [place] [address] [phone] Lipase 371 U/L Normal 73-393 Laboratory test finding 04/14/2020 [facility] Outpatient T esting (Registration) [address] [place] [address] [phone] iSTAT Troponin 0.38 NG/ML High 0.00-0.08 Istat Chem8+ Panel 04/14/2020 [facility] Outpatient Testi ng (Registration) [address] [place] [address] [phone] iSTAT HCT 48.0 % Normal 38.0-51.0 iSTAT Glucose 144 mg/dL High 70-105 iSTAT Sodium 138 mEq/L Normal 136-145 iSTAT Potassium 3.8 mEq/L Normal 3.5-5.1 iSTAT CA++ 4.4 mg/dL Low 4.5-5.3 iSTAT Chloride 104 mEq/L Normal 98-109 iSTAT Co2 25.0 MM/L Normal 23.0-27.0 iSTAT BUN 23 mg/dL Normal 8-26 iSTAT Creatinine 0.7 mg/dL Normal 0.6-1.3 CBC With Differential 04/14/2020 [facility] Outpatient Patti ting (Registration) [address] [place] [address] [phone] White Blood Count 9.3 10 Normal 4.0-10.0 [...] 36.0-66.0 Lymph % 20.4 % Low 24.0-44.0 [place] % 9.3 % High 0.0-5.0 Eos % 0.9 % Normal 0.0-3.0 Baso % 0.3 % Normal 0.0-1.0 Immature Granulocyte % 0.4 % Normal 0-3.0 Nucleated Red Blood Cell % 0.0 % Normal 0-0 Neutrophils # 6.4 10 Normal 1.5-8.5 Lymph # 1.9 10 Normal 1.5-5.0 [place] # 0.9 10 High 0.0-0.8 Eos # 0.1 10 Normal 0.0-0.5 Baso # 0.0 10 Normal 0.0-0.2 Laboratory test finding 04/10/2020 [facility] Outpatient T esting (Registration) [address] [place] [address] [phone] Thyroid Stimulating Hormone 2.030 uIU/ML Normal 0. 358-3.740 Complete Blood Count 04/10/2020 [facility] Outpatient Test ing (Registration) [address] [place] [address] [phone] White Blood Count 5.9 10 Normal 4.0-10.0 [...] % Normal 0-0 Istat Chem8+ Panel 04/10/2020 [facility] Outpatient Testi ng (Registration) [address] [place] [address] [phone] iSTAT HCT 50.0 % Normal 38.0-51.0 iSTAT Glucose 132 mg/dL High 70-105 iSTAT Sodium 140 mEq/L Normal 136-145 iSTAT Potassium 4.1 mEq/L Normal 3.5-5.1 iSTAT CA++ 4.7 mg/dL Normal 4.5-5.3 iSTAT Chloride 101 mEq/L Normal 98-109 iSTAT Co2 29.0 MM/L High 23.0-27.0 iSTAT BUN 20 mg/dL Normal 8-26 iSTAT Creatinine 0.8 mg/dL Normal 0.6-1.3 Laboratory test finding 04/10/2020 [facility] Outpatient T esting (Registration) [address] [place] [address] [phone] iSTAT Troponin 0.00 NG/ML Normal 0.00-0.08 Istat PT/Inr 04/10/2020 [facility] Outpatient Testi ng (Registration) [address] [place] [address] [phone] iSTAT Protime Seconds 15.8 seconds High 12.1-14. 4 iSTAT Inr 1.3 Normal Cardiac Marker Panel 04/10/2020 [facility] Outpatient Test ing (Registration) [address] [place] [address] [phone] CPK Creatine Phosphokinase 47 U/L Normal 26-19 2 CK-MB Value Mass 1.2 NG/ML Normal <3.6 MB/CK Relative Index 2.55 Normal < Or =4 4 Troponin I < 0.02 NG/ML Normal < 0.10 5 Comprehensive Metabolic Profil 04/10/2020 [facility] Outpa tient Testing (Registration) [address] [place] [address] [phone] Glucose, Fasting 84 mg/dL Normal 70-100 Blood Urea Nitrogen 17 mg/dL Normal 7-18 Creatinine For GFR 0.69 mg/dL Normal 0.55-1.30 Glomerular Filtration Rate > 60.0 Normal >45 6 Sodium Level 141 mEq/L Normal 136-145 Potassium [...] 1.5 Normal 1.2-2.2 Complete Blood Count 04/10/2020 [facility] Outpatient Test ing (Registration) [address] [place] [address] [phone] White Blood Count 5.9 10 Normal 4.0-10.0 [...] result in chart CBC With Differential 03/30/2020 [facility] Outpatient Patti ting (Registration) [address] [place] [address] [phone] White Blood Count 10.1 10 High 4.0-10.0 [...] 36.0-66.0 Lymph % 16.2 % Low 24.0-44.0 [place] % 9.0 % High 0.0-5.0 Eos % 0.1 % Normal 0.0-3.0 Baso % 0.4 % Normal 0.0-1.0 Immature Granulocyte % 0.3 % Normal 0-3.0 Nucleated Red Blood Cell % 0.0 % Normal 0-0 Neutrophils # 7.5 10 Normal 1.5-8.5 Lymph # 1.6 10 Normal 1.5-5.0 [place] # 0.9 10 High 0.0-0.8 Eos # 0.0 10 Normal 0.0-0.5 Baso # 0.0 10 Normal 0.0-0.2 Prothrombin Time/Inr 03/30/2020 [facility] Outpatient Test ing (Registration) [address] [place] [address] [phone] Prothrombin Time 14.3 seconds High 12.5-14.3 Inr 1.09 Normal 7 Laboratory test finding 03/30/2020 [facility] Outpatient T esting (Registration) [address] [place] [address] [phone] Partial Thromboplastin Time 30.0 seconds Normal 24 .2-38.5 Cardiac Marker Panel 03/30/2020 [facility] Outpatient Test ing (Registration) [address] [place] [address] [phone] CPK Creatine Phosphokinase 82 U/L Normal 26-19 2 CK-MB Value Mass 3.0 NG/ML Normal <3.6 MB/CK Relative Index 3.66 Normal < Or =4 8 Troponin I < 0.02 NG/ML Normal < 0.10 9 Liver Profile 03/30/2020 [facility] Outpatient Testi ng (Registration) [address] [place] [address] [phone] Ast/Sgot 63 U/L High 7-37 Alt/SGPT 100 U/L High 12-78 Alkaline Phosphatase 103 U/L Normal 45-117 Bilirubin,Total 0.6 mg/dL Normal 0.2-1.0 Bilirubin,Direct 0.2 mg/dL Normal 0.0-0.2 Total Protein 6.1 GM/DL Low 6.4-8.2 Albumin 3.6 GM/DL Normal 3.2-5.2 Albumin/Globulin Ratio 1.4 Normal 1.2-2.2 Basic Metabolic Profile 03/30/2020 [facility] Outpatient T esting (Registration) [address] [place] [address] [phone] Glucose, Fasting 80 mg/dL Normal 70-100 Blood Urea Nitrogen 22 mg/dL High 7-18 Creatinine For GFR 0.84 mg/dL Normal 0.55-1.30 Glomerular Filtration Rate > 60.0 Normal >45 1 0 Sodium Level 141 mEq/L Normal 136-145 Potassium Serum 4.1 mEq/L Normal 3.5-5.1 Chloride Level 108 mEq/L High 98-107 Carbon Dioxide Level 29 mEq/L Normal 21-32 Anion Gap 4 mEq/L Low 8-16 Calcium Level 8.7 mg/dL Low 8.8-10.2 Laboratory test finding 03/30/2020 [facility] Outpatient T esting (Registration) [address] [place] [address] [phone] Thyroid Stimulating Hormone 2.050 uIU/ML Normal 0. 358-3.740 Free T4 1.30 ng/dL Normal 0.76-1.46 Digoxin Level 0.1 NG/ML Low 0.5-2.0 Laboratory test finding 03/30/2020 [facility] Outpatient T esting (Registration) [address] [place] [address] [phone] Magnesium Level 2.3 mg/dL Normal 1.8-2.4 Ethyl Alcohol (Ethanol) 0.003 % Normal 0.000-0.010 1 DIAGNOSIS CRITERIA MMB ng/ml Relative Index (RI) NON-AMI < or = 5 N/A NGUYEN ZONE > 5 < or = 4 AMI > 5 > 4 2 Troponin I Reference Interva l for Siemens [place] LOCI: 99th Percentile= 0.00-0.045 ng/ml Risk Stratification: [...] Little GFR Left ESRD GFR <15 on ELECTRONIC IMAGER 4 DIAGNOSIS CRITERIA MMB ng/ml Relative Index (RI) NON-AMI < or = 5 N/A NGUYEN ZONE > 5 < or = 4 AMI > 5 > 4 5 Troponin I Reference Interva l for Virtual DBS LOCI: 99th Percentile= 0.00-0.045 ng/ml Risk Stratification: <= 0.10 ng/ml Decreased Risk for Adverse Clinical Events. 0.10-1.50 ng/ml Increased Risk for Adv erse Clinical Events. Evaluation of additional criterion and/or repeat testing in 2-6 hours is suggested to rule out myocardial damage. >= 1.50 ng/ml Indicative of Myocardial Injury. 6 Units are mL/min/1.73 m2 Chronic Kidney Disease Staging per NKF: Stage I & II GFR >=60 Normal to Mildly Decreased Stage III GFR 30-59 Moderately Decreased Stage IV GFR 15-29 Severely Decreased Stage V GFR <15 Very Little GFR Left ESRD GFR <15 on ELECTRONIC IMAGER 7 THERAPUTIC HUMAN INR VALUES INDICATIONS NORMAL RANGES PROPHYLAXIS/TREATMENT OF: VENOUS THROMBOSIS 2.0-3.0 PULMONARY EMBOLISM 2.0-3.0 PREVENTION OF SYSTEMIC EMBOLISM FROM: TISSUE HEART VALVES 2.0-3.0 ACUTE MYOCARDIAL INFARCTION 2.0-3.0 VALVULAR HEART DISEASE 2.0-3.0 ATRIAL FIBRILLATION 2.0-3.0 MECHANICAL VALVES(HIGH RISK) 2.5-3.5 RECURRENT MYOCARDIAL INFARCTION 2.5-3.5 8 DIAGNOSIS CRITERIA MMB ng/ml Relative Index (RI) NON-AMI < or = 5 N/A NGUYEN ZONE > 5 < or = 4 AMI > 5 > 4 9 Troponin I Reference Interva l for Service[employer] LOCI: 99th Percentile= 0.00-0.045 ng/ml Risk Stratification: <= 0.10 ng/ml Decreased Risk for Adverse Clinical Events. 0.10-1.50 ng/ml Increased Risk for Adv erse Clinical Events. Evaluation of additional criterion and/or repeat testing in 2-6 hours is suggested to rule out myocardial damage. >= 1.50 ng/ml Indicative of Myocardial Injury. 10 Units are mL/min/1.73 m2 Chronic Kidney Disease Staging per NKF: Stage I & II GFR >=60 Normal to Mildly Decreased Stage III GFR 30-59 Moderately Decreased Stage IV GFR 15-29 Severely Decreased Stage V GFR <15 Very Little GFR Left ESRD GFR <15 on ELECTRONIC IMAGER Procedures Date Code Description Status 04/07/2020 12542 Electrocardiogram Complete Compl eted Medical Devices Description No Information Available Encounters Type Date Location Provider Dx Diagnosis Office Visit 04/21/2020 11:00a [facility] Drea Garcia D.O. I48.92 Unspecified atrial flutter K58.2 Mixed irritable bowel syndro me Z79.01 emt intermediate (current) use of a nticoagulants I48.0 Paroxysmal atrial fibrillati on F41.1 Generalized anxiety disorder I10 Essential (primary) hyperten fernando Office Visit 04/07/2020 10:40a [facility] KAYLYN Fraser I48.92 Unspecified atrial flutter K58.2 Mixed irritable bowel syndro me Z79.01 senior living (current) use of a nticoagulants Assessments Date Code Description Provider 04/21/2020 I48.92 Unspecified atrial flutter Drea Garcia D.O. 04/21/2020 K58.2 Mixed irritable bowel syndrome Yobani FranklinOSaray 04/21/2020 Z79.01 senior living (current) use of antic oagulants Drea Vera D.O. 04/21/2020 I48.0 Paroxysmal atrial fibrillation Roz Garcia D.O. 04/21/2020 F41.1 Generalized anxiety disorder Radha Garcia D.O. 04/21/2020 I10 Essential (primary) hypertension Drea Garcia D.O. 04/07/2020 I48.92 Unspecified atrial flutter Fracisco el O'corby, PA 04/07/2020 K58.2 Mixed irritable bowel syndrome KAYLYN Pappas 04/07/2020 Z79.01 emt intermediate (current) use of antic oagulants KAYLYN Fraser Plan of Treatment Future Appointment(s):* 10/05/2020 1:30 pm - Drea Garcia D.O. at [facility] Functional Status Description No Information Available [...] She has never had a screening colonoscopy Patient Notified 05/30/2020 [facility] [address] [place] [address] [phone]
--- OUTSIDE RECORDS SUMMARY | 2020-05-26 12:17 | CCD | Continuity of Care Document ---
Author Author Nela GARCIA Organization Unknown Address [address] [place] [address] Phone [phone] Care Team Providers Care Chargeback Specialist Name Role Phone Drea Garcia D.O. AUTM Lara Lopez M.D. AUTM [phone] Problems Active Problems Provider Date Paroxysmal atrial [...] caps in the morning Unknown Berberine Complex [id number] Capsules Unknown Chlorella Capsules Unknown Vitamin D-3 [...] F O2 % BldC Oximetry 98 % [place] Body Weight 115 lb 04/07/2020 10:57am BP Systolic 124 mmHg BP Diastolic 74 mmHg Height 63 inches 5'3" Weight 132.25 lb BMI (Body Mass Index) 23.4 kg/m2 Heart Rate 63 /min Respiratory Rate 18 /min Body Temperature 98.1 F O2 % BldC Oximetry 98 % [place] Body Weight 115 lb Results Test Acquired Date Facility Test Result H/L Range Note CBC With Differential 05/22/2020 [facility] Outpatient Patti mcneill (Registration) [address] [place], [place] [id number] [phone] White Blood Count 7.6 10 Normal 4.0-10.0 [...] 36.0-66.0 Lymph % 25.7 % Normal 24.0-44.0 Gonzales % 9.6 % High 2.0-8.0 Eos % 0.5 % Normal 0.0-3.0 Baso % 0.4 % Normal 0.0-1.0 Immature Granulocyte % 0.4 % Normal 0-3.0 Nucleated Red Blood Cell % 0.0 % Normal 0-0 Neutrophils # 4.8 10 Normal 1.5-8.5 Lymph # 2.0 10 Normal 1.5-5.0 Gonzales # 0.7 10 Normal 0.0-0.8 Eos # 0.0 10 Normal 0.0-0.5 Baso # 0.0 10 Normal 0.0-0.2 Cardiac Marker Panel 05/22/2020 [facility] Outpatient Test ing (Registration) [address] [place] [address] [phone] CPK Creatine Phosphokinase 58 U/L Normal 26-19 2 CK-MB Value Mass 1.2 NG/ML Normal <3.6 MB/CK Relative Index 2.07 Normal < Or =4 1 Troponin I < 0.02 NG/ML Normal < 0.10 2 Liver Profile 05/22/2020 [facility] Outpatient Testi ng (Registration) [address] [place] [address] [phone] Ast/Sgot 33 U/L Normal 7-37 Alt/SGPT 49 U/L Normal 12-78 Alkaline Phosphatase 101 U/L Normal 45-117 Bilirubin,Total 0.4 mg/dL Normal 0.2-1.0 Bilirubin,Direct 0.1 mg/dL Normal 0.0-0.2 Total Protein 6.5 GM/DL Normal 6.4-8.2 Albumin 3.7 GM/DL Normal 3.2-5.2 Albumin/Globulin Ratio 1.3 Normal 1.2-2.2 Basic Metabolic Profile 05/22/2020 [facility] Outpatient T esting (Registration) [address] [place], [place] [address] [phone] Glucose, Fasting 77 mg/dL Normal 70-100 Blood [...] mg/dL Normal 8.8-10.2 Laboratory test finding 05/22/2020 [facility] Outpatient T esting (Registration) [address] [place], [place] [address] [phone] Lipase 371 U/L Normal 73-393 Laboratory test finding 04/14/2020 [facility] Outpatient T esting (Registration) [address] [place] [address] [phone] iSTAT Troponin 0.38 NG/ML High 0.00-0.08 Istat Chem8+ Panel 04/14/2020 [facility] Outpatient Testi ng (Registration) [address] [place] [address] [phone] iSTAT HCT 48.0 % Normal 38.0-51.0 iSTAT Glucose 144 mg/dL High 70-105 iSTAT Sodium 138 mEq/L Normal 136-145 iSTAT Potassium 3.8 mEq/L Normal 3.5-5.1 iSTAT CA++ 4.4 mg/dL Low 4.5-5.3 iSTAT Chloride 104 mEq/L Normal 98-109 iSTAT Co2 25.0 MM/L Normal 23.0-27.0 iSTAT BUN 23 mg/dL Normal 8-26 iSTAT Creatinine 0.7 mg/dL Normal 0.6-1.3 CBC With Differential 04/14/2020 [facility] Outpatient Patti ting (Registration) [address] [place] [address] [phone] White Blood Count 9.3 10 Normal 4.0-10.0 [...] 36.0-66.0 Lymph % 20.4 % Low 24.0-44.0 Gonzales % 9.3 % High 0.0-5.0 Eos % 0.9 % Normal 0.0-3.0 Baso % 0.3 % Normal 0.0-1.0 Immature Granulocyte % 0.4 % Normal 0-3.0 Nucleated Red Blood Cell % 0.0 % Normal 0-0 Neutrophils # 6.4 10 Normal 1.5-8.5 Lymph # 1.9 10 Normal 1.5-5.0 Gonzales # 0.9 10 High 0.0-0.8 Eos # 0.1 10 Normal 0.0-0.5 Baso # 0.0 10 Normal 0.0-0.2 Laboratory test finding 04/10/2020 [facility] Outpatient T esting (Registration) [address] [place] [address] [phone] Thyroid Stimulating Hormone 2.030 uIU/ML Normal 0. 358-3.740 Complete Blood Count 04/10/2020 [facility] Outpatient Test ing (Registration) [address] [place] [address] [phone] White Blood Count 5.9 10 Normal 4.0-10.0 [...] % Normal 0-0 Istat Chem8+ Panel 04/10/2020 [facility] Outpatient Testi ng (Registration) [address] [place] [address] [phone] iSTAT HCT 50.0 % Normal 38.0-51.0 iSTAT Glucose 132 mg/dL High 70-105 iSTAT Sodium 140 mEq/L Normal 136-145 iSTAT Potassium 4.1 mEq/L Normal 3.5-5.1 iSTAT CA++ 4.7 mg/dL Normal 4.5-5.3 iSTAT Chloride 101 mEq/L Normal 98-109 iSTAT Co2 29.0 MM/L High 23.0-27.0 iSTAT BUN 20 mg/dL Normal 8-26 iSTAT Creatinine 0.8 mg/dL Normal 0.6-1.3 Laboratory test finding 04/10/2020 [facility] Outpatient T esting (Registration) [address] [place] [address] [phone] iSTAT Troponin 0.00 NG/ML Normal 0.00-0.08 Istat PT/Inr 04/10/2020 [facility] Outpatient Testi ng (Registration) [address] [place] [address] [phone] iSTAT Protime Seconds 15.8 seconds High 12.1-14. 4 iSTAT Inr 1.3 Normal Cardiac Marker Panel 04/10/2020 [facility] Outpatient Test ing (Registration) [address] [place] [address] [phone] CPK Creatine Phosphokinase 47 U/L Normal 26-19 2 CK-MB Value Mass 1.2 NG/ML Normal <3.6 MB/CK Relative Index 2.55 Normal < Or =4 4 Troponin I < 0.02 NG/ML Normal < 0.10 5 Comprehensive Metabolic Profil 04/10/2020 [facility] Outpa tient Testing (Registration) [address] [place] [address] [phone] Glucose, Fasting 84 mg/dL Normal 70-100 Blood [...] 1.5 Normal 1.2-2.2 Complete Blood Count 04/10/2020 [facility] Outpatient Test ing (Registration) [address] [place] [address] [phone] White Blood Count 5.9 10 Normal 4.0-10.0 [...] result in chart CBC With Differential 03/30/2020 [facility] Outpatient Patti ting (Registration) [address] [place] [address] [phone] White Blood Count 10.1 10 High 4.0-10.0 [...] 36.0-66.0 Lymph % 16.2 % Low 24.0-44.0 Gonzales % 9.0 % High 0.0-5.0 Eos % 0.1 % Normal 0.0-3.0 Baso % 0.4 % Normal 0.0-1.0 Immature Granulocyte % 0.3 % Normal 0-3.0 Nucleated Red Blood Cell % 0.0 % Normal 0-0 Neutrophils # 7.5 10 Normal 1.5-8.5 Lymph # 1.6 10 Normal 1.5-5.0 Gonzales # 0.9 10 High 0.0-0.8 Eos # 0.0 10 Normal 0.0-0.5 Baso # 0.0 10 Normal 0.0-0.2 Prothrombin Time/Inr 03/30/2020 [facility] Outpatient Test ing (Registration) [address] [place] [address] [phone] Prothrombin Time 14.3 seconds High 12.5-14.3 Inr 1.09 Normal 7 Laboratory test finding 03/30/2020 [facility] Outpatient T esting (Registration) [address] [place] [address] [phone] Partial Thromboplastin Time 30.0 seconds Normal 24 .2-38.5 Cardiac Marker Panel 03/30/2020 [facility] Outpatient Test ing (Registration) [address] [place] [address] [phone] CPK Creatine Phosphokinase 82 U/L Normal 26-19 2 CK-MB Value Mass 3.0 NG/ML Normal <3.6 MB/CK Relative Index 3.66 Normal < Or =4 8 Troponin I < 0.02 NG/ML Normal < 0.10 9 Liver Profile 03/30/2020 [facility] Outpatient Testi ng (Registration) [address] [place] [address] [phone] Ast/Sgot 63 U/L High 7-37 Alt/SGPT 100 U/L High 12-78 Alkaline Phosphatase 103 U/L Normal 45-117 Bilirubin,Total 0.6 mg/dL Normal 0.2-1.0 Bilirubin,Direct 0.2 mg/dL Normal 0.0-0.2 Total Protein 6.1 GM/DL Low 6.4-8.2 Albumin 3.6 GM/DL Normal 3.2-5.2 Albumin/Globulin Ratio 1.4 Normal 1.2-2.2 Basic Metabolic Profile 03/30/2020 [facility] Outpatient T esting (Registration) [address] [place] [address] [phone] Glucose, Fasting 80 mg/dL Normal 70-100 Blood [...] mg/dL Low 8.8-10.2 Laboratory test finding 03/30/2020 [facility] Outpatient T esting (Registration) [address] [place] [address] [phone] Thyroid Stimulating Hormone 2.050 uIU/ML Normal 0. 358-3.740 Free T4 1.30 ng/dL Normal 0.76-1.46 Digoxin Level 0.1 NG/ML Low 0.5-2.0 Laboratory test finding 03/30/2020 [facility] Outpatient T esting (Registration) [address] [place] [address] [phone] Magnesium Level 2.3 mg/dL Normal 1.8-2.4 Ethyl Alcohol (Ethanol) 0.003 % Normal 0.000-0.010 1 DIAGNOSIS CRITERIA MMB ng/ml Relative Index (RI) NON-AMI < or = 5 N/A NGUYEN ZONE > 5 < or = 4 AMI > 5 > 4 2 Troponin I Reference Interva l for [employer]ens [place] LOCI: 99th Percentile= 0.00-0.045 ng/ml Risk Stratification: [...] Little GFR Left ESRD GFR <15 on [employer] 4 DIAGNOSIS CRITERIA MMB ng/ml Relative Index (RI) NON-AMI < or = 5 N/A NGUYEN ZONE > 5 < or = 4 AMI > 5 > 4 5 Troponin I Reference Interva l for [employer] LOCI: 99th Percentile= 0.00-0.045 ng/ml Risk Stratification: [...] Little GFR Left ESRD GFR <15 on [employer] 7 THERAPUTIC HUMAN INR VALUES INDICATIONS NORMAL [...] 9 Troponin I Reference Interva l for [employer] LOCI: 99th Percentile= 0.00-0.045 ng/ml Risk Stratification: [...] Little GFR Left ESRD GFR <15 on [employer] Procedures Date Code Description Status 04/07/2020 82438 Electrocardiogram Complete Compl eted Medical Devices Description No Information Available Encounters Type Date Location Provider Dx Diagnosis Office Visit 04/21/2020 11:00a [facility] Drea Garcia D.O. 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 04/21/2020 K58.2 Mixed irritable bowel syndrome Yobani FranklinOSaray 04/21/2020 Z79.01 [facility] (current) use of antic oagulants Drea Vera D.O. 04/21/2020 I48.0 Paroxysmal atrial fibrillation Roz Garcia D.O. 04/21/2020 F41.1 Generalized anxiety disorder Radha Garcia D.O. 04/21/2020 I10 Essential (primary) hypertension Drea Garcia D.O. 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 at [facility] Functional Status Description No Information [...] colonoscopy Patient Notified 05/30/2020 [facility] [address] [place] [address] [phone]
--- OUTSIDE RECORDS SUMMARY | 2020-05-26 12:20 | CCD ---
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 If you continue you may have access to information: Regarding HIV / AIDS; Provided by facilities licensed or operated by the [facility] Office of Mental Health; or Provided by the [facility] Office for People With Developmental Disabilities. If such information is present, then the following [facility] mandated warning applies: This information has been [...] SULFA ANTIBIOTICS Sulfa Antibiotics Rash Low Active [facility] Low Propensity to adverse reactions LACTOSE INTOLERANCE (GI) [place] Intolerance (Gi) Active [facility] Propensity to adverse reactions GLUTEN MEAL Wheat gluten extract Active [facility] Propensity to adverse reactions GARLIC allyl sulfide A ctive [facility] Family History Family Member Name Family Member Gender Family Member Status Date o f Status Description Data Source(s) Unknown Male Problem [facility] ([facility]) Unknown Male Problem [facility] ([facility]) at age 38 Encounters Encounter Providers Location Date Indications Data Source(s ) Outpatient Attender: DAVE AMBROSE DO [facility] 04/21/2020 10:00:00 AM EST [facility] ([facility]) Outpatient Attender: HANNAH GALARZA MD Main Office 04/19/2020 11:00:00 AM EST [facility] ([facility]) Inpatient Attender: Ruchi Harris MDAdmitter: Ruchi douglas MD [email or web address] 04/11/2020 02:03:45 PM EST - 04/13/2020 01:50:[address] [facility] Patient discharged. Outpatient Attender: Nico PATIÑO [facility] 04/07/2020 09:40:00 AM EST [facility] ([facility]) Outpatient Attender: Robina PATIÑO Main Office 12/03/2019 02:30:0 0 PM EDT [facility] ([facility]) [facility]: [facility] 10:30:00 AM EDT [facility] ([facility]) Outpatient Attender: DAVE AMBROSE [facility] 06/05/2019 10:00:00 AM EST [facility] ([facility]) Outpatient Attender: DAVE AMBROSE [facility] 05/08/2019 12:20:00 PM EST [facility] ([facility]) Outpatient Attender: Robina PATIÑO Main Office 04/29/2019 12:00:0 0 PM EST [facility] ([facility]) [facility] 12:30:00 PM EST [facility] ([facility]) Medications Medication Brand Name Start Date Product Form Dose Route Admi nistrative Instructions Pharmacy Instructions Status Indications Reaction Description Data Source(s) Bisoprolol Fumarate 5 MG Oral Tablet Bisoprolol Fumarate 12:00:00 AM EST ORAL active [facility] ([facility]) 5 mg 05/05/2020 12:00:00 AM EST tablet 60 TAKE ONE TABLET BY MOUTH TWICE A DAY FOR RESTING HR>90 BPM TAKE ONE TABLET BY MOUTH TWICE A DAY FOR RESTING HR>90 BPM SOLD: 05/06/2020 [facility] Atenolol 25 MG Oral Tablet Atenolol 05/02/2020 12:00:00 AM EST ORAL completed [facility] ([facility]) Atenolol 25 MG Oral Tablet Atenolol 04/27/2020 12:00:00 AM EST ORAL completed [facility] ([facility]) 80 mg 04/20/2020 12:00:00 AM EST tablet 90 TAKE ONE TABLET BY MOUTH AT BEDTIME TAKE ONE TABLET BY MOUTH AT BEDTIME SOLD: 04/21/2020 [facility] Atenolol 25 MG Oral Tablet ATENOLOL 04/20/2020 12:00:00 AM EST tablet 180 TAKE ONE TABLET BY MOUTH TWICE A DAY TAKE ONE TABLET BY MOUTH TWICE A DAY SOLD: 04/21/2020 [facility] valsartan 80 MG Oral Tablet Valsartan 04/19/2020 12:00:00 AM EST ORAL active [facility] ([facility]) Flecainide Acetate 50 MG Oral Tablet Flecainide Acetate 03/2021 12:00:00 AM EST ORAL active [facility] ([facility]) Atenolol 25 MG Oral Tablet Atenolol 04/19/2020 12:00:00 AM EST ORAL completed [facility] ([facility]) 50 mg 04/15/2020 12:00:00 AM EST tablet 60 TAKE ONE TABLET BY MOUTH TWICE A DAY TAKE ONE TABLET BY MOUTH TWICE A DAY SOLD: 04/15/2020 [facility] Atenolol 50 MG Oral Tablet ATENOLOL 04/15/2020 12:00:00 AM EST tablet 30 TAKE ONE TABLET BY MOUTH EVERY DAY TAKE ONE TABLET BY MOUTH EVERY DAY SOLD: 04/15/2020 [facility] 750 mg/5 mL 04/15/2020 12:00:00 AM EST suspension 50 TAKE ONE TEASPOONFUL (5ML) BY MOUTH TWICE A DAY WITH FOOD , DO NOT TAKE COQ10 TAKE ONE TEASPOONFUL (5ML) BY MOUTH TWICE A DAY WITH FOOD , DO NOT TAKE COQ10 SOLD: 04/15/2020 [facility] Flecainide Acetate 50 MG Oral Tablet Flecainide Acetate 10/2020 12:00:00 AM EST ORAL completed [facility] ([facility]) Atenolol 50 MG Oral Tablet Atenolol 04/14/2020 12:00:00 AM EST ORAL completed [facility] ([facility]) Mirtazapine 15 MG Oral Tablet Mirtazapine 04/14/2020 12:00:00 AM EST completed [facility] ([facility]) rivaroxaban 20 MG Oral Tablet [Xarelto] Xarelto 04/14/2020 12:00:0 0 AM EST ORAL active [facility] ([facility]) Amlodipine 5 MG Oral Tablet amLODIPine (NORVASC) 5 MG tablet amLODIPine (NORVASC) 5 MG tablet 04/14/2020 12:00:00 AM EST 5 mg Oral active Take 1 tablet (5 mg total) by mouth daily [facility] 5 mg 04/13/2020 12:00:00 AM EST tablet [...] mg total) by mouth daily with dinner [facility] 2 ML Midazolam 1 MG/ML Injection midazolam (VERSED) in jection midazolam (VERSED) injection 04/12/2020 02:11:53 PM EST active As needed, Starting Sat04/12/20 at 1411, Intra-Procedure [facility] Medication administered onsite fentaNYL Citrate (PF) (SUBLIMAZE) injection 8644-3219-88 04/12/2020 02:11:40 PM EST active As neede d, Starting Sat04/12/20 at 1411, Intra-Procedure [facility] Medication administered onsite Diltiazem Hydrochloride 60 MG Oral Tablet diltiazem (C ARDIZEM) tablet 60 mg diltiazem (CARDIZEM) tablet 60 mg 04/11/2020 06:00:00 PM EST 60 mg Oral active 60 mg, Oral, Every 6 hours (scheduled), First dose on Sat04/11/[address] [facility] Medication administered onsite rivaroxaban 20 MG Oral Tablet rivaroxaban (XARELTO) ta blet 20 mg rivaroxaban (XARELTO) tablet 20 mg 04/11/2020 06:00:00 PM EST 20 mg Oral active 20 mg, Oral, Daily with dinner, First dose on Sat04/11/[address] [facility] Medication administered onsite ondansetron (ZOFRAN) injection 4 mg [id number] 04/11/2020 03:32:1 5 PM EST 4 mg Intravenous active 4 mg, In travenous, Every 4 hours PRN, nausea, vomiting, Starting Sat04/11/[address] [facility] Medication administered onsite Acetaminophen 325 MG Oral Tablet acetaminophen (TYLENO L) 325 MG tablet 650 mg acetaminophen (TYLENOL) 325 MG tablet 650 mg 04/11/2020 03:32:15 PM EST 650 mg Oral active 650 mg, Or al, Every 4 hours PRN, mild pain (1-3), headaches, Starting Sat04/11/20 at 1532
"Maximum dose of acetaminophen is 4,000 mg from all sources in [address] hours."
[facility] Medication administered onsite 60 mg 04/11/2020 12:00:00 [...] HOURS NEEDED FOR DIARRHEA SOLD: 04/07/2020 Nely jamison Dicyclomine Hydrochloride 10 MG Oral Capsule Dicyclomine HCL 04/06/2020 12:00:00 AM EST ORAL completed [facility] ([facility]) 30 mg 04/04/2020 12:00:00 AM EST tablet 120 TAKE ONE TABLET BY MOUTH FOUR TIMES A DAY TAKE ONE TABLET BY MOUTH FOUR TIMES A DAY SOLD: 04/04/2020 Nely Drake Diltiazem Hydrochloride 30 MG Oral Tablet Diltiazem HCL 04/04/2020 12:00:00 AM EST ORAL completed [facility] ([facility]) 24 HR Diltiazem Hydrochloride 120 MG Extended [...] EST ORAL completed [facility] ([facility]) 24 HR Diltiazem Hydrochloride 300 MG Extended Release Oral Capsule Diltiazem HCL ER Beads 03/31/2020 12:00:00 AM EST ORAL completed [facility] ([facility]) 20 mg 10/12/2019 12:00:00 AM EDT tablet [...] Doxycycline Monohydrate 100 MG Oral Capsule Doxycycline [place] hydrate 04/28/2019 12:00:00 AM EST ORAL active M EDENT ([facility]) Atenolol 25 MG Oral Tablet Atenolol 04/28/2019 [...] TWICE A DAY SOLD: 05/02/2019 [facility] 20 mg 10/15/2018 12:00:00 AM [...] by mouth 4 (four) times a day [facility] rivaroxaban 15 MG Oral Tablet rivaroxaban (XARELTO) 15 MG TABS rivaroxaban (XARELTO) 15 MG TABS 15 mg Oral aborted [place] e 15 mg by mouth daily [facility] Atenolol 25 MG Oral Tablet atenolol (TENORMIN) 25 MG t ablet atenolol (TENORMIN) 25 MG tablet 25 mg Oral aborted Take 25 mg by mouth daily [facility] Insurance Providers Payer name Policy type / Coverage type Policy ID Covered republican ID Covered republican's relationship to saldaña Policy [place] Plan Information R [facility] [id number] SP [id number] MEDICARE [id number] SP [id number] [facility] [id number] SP [id number] R O [id number] S [id number] MEDICARE C [id number] S [id number] MEDICARE [id number] MEDICARE [id number] Regla [id number] [id number] r Commercial [id number] Self [id number] UMR [facility] [id number] SP [id number] Umr Commercial [id number] Self [id number] Umr Medigap Part B [id number] Self [id number] [place] [facility] Ppo Commercial [id number] Self [id number] Umr Medigap Part B [id number] Self [id number] Umr Commercial [id number] Self [id number] Umr Commercial [id number] Self [id number] Umr Commercial [id number] Self [id number] Umr Commercial [id number] Self [id number] Umr Commercial [id number] Self [id number] Umr Commercial [id number] Self [id number] Umr Commercial [id number] Self [id number] Umr Commercial [id number] Self [id number] Umr Commercial [id number] Self [id number] Umr Commercial [id number] Self [id number] [facility] [id number] S [id number] Umr Commercial [id number] Self [id number] Umr Medigap Part B [id number] Self [id number] Umr Medigap Part B [id number] Self [id number] Umr Commercial [id number] Self [id number] Umr Commercial [id number] Self [id number] Umr Commercial [id number] Self [id number] Umr Commercial [id number] Self [id number] Umr Commercial [id number] Self [id number] Umr Commercial [id number] Self [id number] Umr Commercial [id number] Self [id number] [id number] Umr Commercial [id number] Self [id number] Umr Commercial [id number] Self [id number] Umr Commercial [id number] Self [id number] Umr Medigap Part B [id number] Self [id number] [facility] [id number] SP [id number] [place] [facility] Ppo Commercial [id number] Self [id number] [place] COMM SELF [id number] S [id number] Problems, Conditions, and Diagnoses Code Display Name Description Problem Type Effective Dates Data Source(s) 424171785 Paroxysmal atrial fibrillation Paroxysmal atrial fibri llation Problem 04/19/2020 12:00:00 AM EST [facility] ([facility]) [id number] Essential hypertension Essential hypertension Problem 04/19/2020 12:00:00 AM EST [facility] ([facility]) I48.3 Typical atrial flutter Typical atrial flutter [id number] 04/11/2020 12:00:[address] [facility] I48.92 Atrial flutter Atrial flutter [id number] 04/11/2020 12:00: [address] [facility] I48.3 Typical atrial flutter Typical atrial flutter Diagnosi s 04/11/2020 02:03:[address] [facility] I48.92 Unspecified atrial flutter Unspecified atrial flutter Diagnosis 04/11/2020 02:03:[address] [facility] Surgeries/Procedures Procedure Description Date Indications Data Source(s) ECG ROUTINE ECG W/LEAST 12 LDS W/I&R 04/19/2020 12:00: 00 AM EST [facility] ([facility]) Arterial Pressure Waveform Analysis For Assessment Of Centra l Art 04/19/2020 12:00:00 AM EST [facility] BLOOD COUNT COMPLETE AUTOMATED CBC Routine 04/13/2020 4:23 A M EST 04/13/2020 09:23:00 AM EST [facility] BASIC METABOLIC PANEL CALCIUM TOTAL BASIC METABOLIC PANEL Routi ne 04/13/2020 4:23 AM EST 04/13/2020 09:23:00 AM [facility] EP STUDY EP STUDY Routine 04/12/2020 2:29 PM EST Typical atrial flutter 04/12/2020 07:29:52 PM EST Typical atrial flutter [facility] Typical atrial flutter ECHO TTHRC R-T 2D W/WOM-MODE COMPL SPEC&COLR DOP ECHOCARDIO GRAM TRANSTHORACIC Routine 04/12/2020 7:30 AM EST 04/12/2020 12:30:[address] [facility] ECG ROUTINE ECG W/LEAST 12 LDS TRCG ONLY W/O I&R ECG 12-LEAD Routine 04/12/2020 6:35 AM EST 04/12/2020 11:35:[address] [facility] BLOOD COUNT COMPLETE AUTOMATED CBC Routine 04/12/2020 5:19 A M EST 04/12/2020 10:19:00 AM EST [facility] BASIC METABOLIC PANEL CALCIUM TOTAL BASIC METABOLIC PANEL Routi ne 04/12/2020 5:19 AM EST 04/12/2020 10:19:00 AM EST [facility] THROMBOPLASTIN TIME PARTIAL PLASMA/WHOLE BLOOD APTT Routine 04/11/2020 2:55 PM EST 04/11/2020 07:55:00 PM EST [facility] PROTHROMBIN TIME PROTIME-INR Routine 04/11/2020 2:55 PM EST 04/11/2020 07:55:[address] [facility] BLOOD COUNT COMPLETE AUTOMATED CBC Routine 04/11/2020 2:55 P M EST 04/11/2020 07:55:00 PM EST [facility] COMPREHENSIVE METABOLIC PANEL COMPREHENSIVE METABOLIC PANEL Rou elder 04/11/2020 2:55 PM EST 04/11/2020 07:55:00 PM EST [facility] ECG ROUTINE ECG W/LEAST 12 LDS W/I&R ECG 12-LEAD Routine 04/11/2020 2:01 PM EST 04/11/2020 07:01:27 PM EST [facility] Electrocardiogram Complete 04/07/2020 12:00:00 AM EST [facility] ([facility]) ECG ROUTINE ECG W/LEAST 12 LDS W/I&R 12/03/2019 12:00: 00 AM EDT [facility] ([facility]) Omt 7-8 Body Regions 06/24/2019 12:00:00 AM EDT [facility] ([facility]) Omt 7-8 Body Regions 06/05/2019 12:00:00 AM EST [facility] ([facility]) Omt 7-8 Body Regions 05/08/2019 12:00:00 AM EST [facility] ([facility]) ECG ROUTINE ECG W/LEAST 12 LDS W/I&R 04/29/2019 12:00: 00 AM EST [facility] ([facility]) Omt 7-8 Body Regions 04/07/2019 12:00:00 AM EST [facility] ([facility]) Results ID Date Data Source [id number] 05/22/2020 04:48:00 PM EST [facility] ([facility]) Name Value Range Interpretation Code Description Data Kathi rce(s) Supporting Document(s) Red Blood Count 4.74 10 4.00-5.40 Normal (applies to non-numeric results) [facility] ([facility]) White Blood Count 7.6 10 4.0-10.0 Normal (applies to non-numeri c results) [facility] ([facility]) Hematocrit 42.5 % 36.0-47.0 Normal (applies to non-numeric resul ts) [facility] ([facility]) Hemoglobin 14.7 g/dL 12.0-15.5 Normal (applies to non-numeric resul ts) [facility] ([facility]) Mean Corpuscular HGB Conc 34.6 g/dL 32.0-36.5 Normal (applies to non-numeric results) [facility] ([facility]) Mean Corpuscular Volume 89.7 fl 80.0-96.0 Normal ( applies to non-numeric results) [facility] ([facility]) Mean Corpuscular Hemoglobin 31.0 pg 27.0-33.0 Norm al (applies to non-numeric results) [facility] ([facility]) Red Cell Distribution Width 12.0 % 11.5-14.5 Norm al (applies to non-numeric results) [facility] ([facility]) Platelet Count, Automated 249 10 150-450 Normal (applies to non-numeric results) [facility] ([facility]) [place] % 9.6 % 2.0-8.0 Above high normal [facility] ([facility]) Neutrophils % 63.4 % 36.0-66.0 Normal (applies to non-numeric re sults) [facility] ([facility]) Lymph % 25.7 % 24.0-44.0 Normal (applies to non-numeric resul ts) [facility] ([facility]) Baso % 0.4 % 0.0-1.0 Normal (applies to non-numeric resul ts) [facility] ([facility]) Eos % 0.5 % 0.0-3.0 Normal (applies to non-numeric resul ts) [facility] ([facility]) Immature Granulocyte % 0.4 % 0-3.0 Normal (applies to non-n umeric results) [facility] ([facility]) Neutrophils # 4.8 10 1.5-8.5 Normal (applies to non-numeric re sults) [facility] ([facility]) Nucleated Red Blood Cell % 0.0 % 0-0 Normal (applies to n on-numeric results) [facility] ([facility]) [place] # 0.7 10 0.0-0.8 Normal (applies to non-numeric resul ts) [facility] ([facility]) Lymph # 2.0 10 1.5-5.0 Normal (applies to non-numeric resul ts) [facility] ([facility]) Eos # 0.0 10 0.0-0.5 Normal (applies to non-numeric resul ts) [facility] ([facility]) Baso # 0.0 10 0.0-0.2 Normal (applies to non-numeric resul ts) [facility] ([facility]) ID Date Data Source [id number] 05/22/2020 04:47:00 PM EST [facility] ([facility]) Name Value Range Interpretation Code Description Data Kathi rce(s) Supporting Document(s) Lipase [Enzymatic activity/volume] in Serum or Plasma 371 U/L 73-393 Normal (applies to non-numeric results) [facility] ([facility]) ID Date Data Source [id number] 05/22/2020 04:47:00 PM EST [facility] ([facility]) Name Value Range Interpretation Code Description Data Kathi rce(s) Supporting Document(s) Blood Urea Nitrogen 21 mg/dL 7-18 Above high normal [facility] ([facility]) Glucose, Fasting 77 mg/dL 70-100 Normal (applies to non-numeric results) [facility] ([facility]) Creatinine For GFR 0.86 mg/dL 0.55-1.30 Normal (applies to non -numeric results) [facility] ([facility]) Sodium Level 142 meq/L 136-145 Normal (applies to non-numeric res ults) [facility] ([facility]) Glomerular Filtration Rate Laboratory test result Normal (applies to non- numeric results) [facility] ([facility]) <content>Units are mL/min/1.73 m2</content>
<content></content>
<content>Chronic Kidney Disease Staging per NKF:</content>
<content></content>
<content>Stage I & II GFR >=60 Normal to Mildly Decreased</content>
<content>Stage III GFR 30-59 Moderately Decreased</content>
<content>Stage IV GFR 15-29 Severely Decreased</content>
<content>Stage V GFR <15 Very Little GFR Left</content>
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
<content></content> Chloride Level 107 meq/L 98-107 Normal (applies to non-numeric r esults) [facility] ([facility]) Potassium Serum 4.0 meq/L 3.5-5.1 Normal (applies to non-numeric results) [facility] ([facility]) Anion Gap 8 meq/L 8-16 Normal (applies to non-numeric resul ts) [facility] ([facility]) Carbon Dioxide Level 27 meq/L 21-32 Normal (applies to non-num pop results) [facility] ([facility]) Calcium Level 9.2 mg/dL 8.8-10.2 Normal (applies to non-numeric re sults) [facility] ([facility]) ID Date Data Source [id number] 05/22/2020 04:47:00 PM EST [facility] ([facility]) Name Value Range Interpretation Code Description Data Kathi rce(s) Supporting Document(s) Alt/SGPT 49 U/L 12-78 Normal (applies to non-numeric resul ts) [facility] ([facility]) Ast/Sgot 33 U/L 7-37 Normal (applies to non-numeric resul ts) [facility] ([facility]) Alkaline Phosphatase 101 U/L 45-117 Normal (applies to non-num pop results) [facility] ([facility]) Bilirubin,Total 0.4 mg/dL 0.2-1.0 Normal (applies to non-numeric results) [facility] ([facility]) Bilirubin,Direct 0.1 mg/dL 0.0-0.2 Normal (applies to non-numeric results) [facility] ([facility]) Albumin/Globulin Ratio 1.3 1.2-2.2 Normal (applies to non-n umeric results) [facility] ([facility]) Albumin 3.7 GM/DL 3.2-5.2 Normal (applies to non-numeric resul ts) [facility] ([facility]) Total Protein 6.5 GM/DL 6.4-8.2 Normal (applies to non-numeric re sults) [facility] ([facility]) ID Date Data Source [id number] 05/22/2020 04:47:00 PM EST [facility] ([facility]) Name Value Range Interpretation Code Description Data Kathi rce(s) Supporting Document(s) CPK Creatine Phosphokinase 58 U/L 26-192 Queenie l (applies to non-numeric results) [facility] ([facility]) CK-MB Value Mass 1.2 ng/mL Normal (applies to non-numeric results) [facility] ([facility]) MB/CK Relative Index 2.07 Normal (applies to non-num pop results) [facility] ([facility]) <content>DIAGNOSIS CRITERIA</content>
<content>MMB ng/ml Relative Index (RI)</content>
<content>NON-AMI < or = 5 N/A</content>
<content>NGUYEN ZONE > 5 < or = 4</content>
<content>AMI > 5 > 4</content>
<content></content> Troponin I Laboratory test result Normal (applies to non-n umeric results) [facility] ([facility]) <content>Troponin I Reference Interval f or Siemens [place] LOCI:</content>
<content></content>
<content>99th Percentile= 0.00-0.045 ng/ml</content>
<content></content>
<content>Risk Stratification:</content>
<content><= 0.10 ng/ml Decreased Risk for Adverse Clinical</content>
<content>Events.</content>
<content>0.10-1.50 ng/ml Increased Risk for Adverse Clinical</content>
<content>Events. Evaluation of additional</content>
<content>criterion and/or repeat testing in 2-6</content>
<content>hours is suggested to rule out myocardial</content>
<content>damage.</content>
<content>>= 1.50 ng/ml Indicative of Myocardial Injury.</content>
<content></content> ID Date Data Source [id number] 04/14/2020 08:40:00 PM EST [facility] ([facility]) Name Value Range Interpretation Code Description Data Kathi rce(s) Supporting Document(s) Laboratory test finding (navigational concept) 0.38 ng/mL 0 .00-0.08 Above high normal [facility] ([facility]) ID Date Data Source [id number] 04/14/2020 08:34:00 PM EST [facility] ([facility] [facility]) Name Value Range Interpretation Code Description Data Kathi rce(s) Supporting Document(s) Laboratory test finding (navigational concept) 144 mg/dL 7 0-105 Above high normal [facility] ([facility]) Laboratory test finding (navigational concept) 48.0 % 3 8.0-51.0 Normal (applies to non-numeric results) [facility] ([facility]) Laboratory test finding (navigational concept) 3.8 meq/L 3 .5-5.1 Normal (applies to non-numeric results) [facility] ([facility]) Laboratory test finding (navigational concept) 138 meq/L 1 36-145 Normal (applies to non-numeric results) [facility] ([facility]) Laboratory test finding (navigational concept) 4.4 mg/dL 4 .5-5.3 Below low normal [facility] ([facility]) Laboratory test finding (navigational concept) 104 meq/L 9 8-109 Normal (applies to non-numeric results) [facility] ([facility]) Laboratory test finding (navigational concept) 25.0 MM/L 2 3.0-27.0 Normal (applies to non-numeric results) [facility] ([facility]) Laboratory test finding (navigational concept) 23 mg/dL 8 -26 Normal (applies to non-numeric results) [facility] ([facility]) Laboratory test finding (navigational concept) 0.7 mg/dL 0 .6-1.3 Normal (applies to non-numeric results) [facility] ([facility]) ID Date Data Source [id number] 04/14/2020 08:30:00 PM EST [facility] ([facility]) Name Value Range Interpretation Code Description Data Kathi rce(s) Supporting Document(s) White Blood Count 9.3 10 4.0-10.0 Normal (applies to non-numeri c results) [facility] ([facility]) Hemoglobin 17.0 g/dL 12.0-15.5 Above high normal [facility] ([facility]) Red Blood Count 5.41 10 4.00-5.40 Above high normal [facility] ([facility]) Mean Corpuscular Hemoglobin 31.4 pg 27.0-33.0 Norm al (applies to non-numeric results) [facility] ([facility]) Hematocrit 49.0 % 36.0-47.0 Above high normal [facility] ([facility]) Mean Corpuscular Volume 90.6 fl 80.0-96.0 Normal ( applies to non-numeric results) [facility] ([facility]) Red Cell Distribution Width 11.8 % 11.5-14.5 Norm al (applies to non-numeric results) [facility] ([facility]) Mean Corpuscular HGB Conc 34.7 g/dL 32.0-36.5 Normal (applies to non-numeric results) [facility] ([facility]) Platelet Count, Automated 236 10 150-450 Normal (applies to non-numeric results) [facility] ([facility]) [place] % 9.3 % 0.0-5.0 Above high normal [facility] ([facility]) Lymph % 20.4 % 24.0-44.0 Below low normal [facility] ( [facility]) Neutrophils % 68.7 % 36.0-66.0 Above high normal [facility] ([facility]) Baso % 0.3 % 0.0-1.0 Normal (applies to non-numeric resul ts) [facility] ([facility]) Immature Granulocyte % 0.4 % 0-3.0 Normal (applies to non-n umeric results) [facility] ([facility]) Eos % 0.9 % 0.0-3.0 Normal (applies to non-numeric resul ts) [facility] ([facility]) Neutrophils # 6.4 10 1.5-8.5 Normal (applies to non-numeric re sults) [facility] ([facility]) Nucleated Red Blood Cell % 0.0 % 0-0 Normal (applies to n on-numeric results) [facility] ([facility]) Lymph # 1.9 10 1.5-5.0 Normal (applies to non-numeric resul ts) [facility] ([facility]) [place] # 0.9 10 0.0-0.8 Above high normal [facility] ([facility]) Eos # 0.1 10 0.0-0.5 Normal (applies to non-numeric resul ts) [facility] ([facility]) Baso # 0.0 10 0.0-0.2 Normal (applies to non-numeric resul ts) [facility] ([facility]) ID Date Data Source [id number] 04/14/2020 03:26:00 PM EST [facility]) Name Value Range Interpretation Code Description Data Kathi rce(s) Supporting Document(s) Hematocrit [Volume Fraction] of Blood by Automated count 49.0 [facility] ([facility] Hemoglobin [Mass/volume] in Blood 17.0 [facility] ([facility]) Erythrocyte mean corpuscular volume [Entitic volume] by Automate d count 90.6 [facility] ([facility]) Erythrocyte mean corpuscular hemoglobin [Entitic mass] by Au tomated count 31.4 [facility] ([facility]) Erythrocyte mean corpuscular hemoglobin concentration [Mass/volume] by Automated count 34.7 [facility] Neutrophils 68.7 [facility] ([facility]) Platelet mean volume [Entitic volume] in Blood by [place] Laboratory test result [facility] Platelets [#/volume] in Blood by Automated count 236 [facility] ([facility]) Erythrocyte distribution width [Ratio] by Automated count 11.8 [facility] ([facility]) Lymphocytes/100 leukocytes in Body fluid by Manual count 20.4 [facility] ([facility]) Monocytes 9.3 [facility] ([facility] Band form neutrophils/100 leukocytes in Body fluid by Manual count Laboratory test result [facility] ([facility]) Basophils/100 leukocytes in Blood 0.3 [facility] ([facility]) Fluid Body Eosinophils 0.9 [facility] ([facility]) Lymphocytes [#/volume] in Blood 1.9 [facility] ([facility]) Monocytes [#/volume] in Blood 0.9 [facility] ([facility]) Neutrophils [#/volume] in Blood by Automated count 6.4 [facility] ([facility]) Eosinophils [#/volume] in Blood by Automated count 0.1 [facility] ([facility]) Basophils [#/volume] in Blood by Automated count 0.0 [facility] ([facility]) ID Date Data Source [id number] 04/14/2020 03:26:00 PM EST [facility] ([facility] Name Value Range Interpretation Code Description Data Kathi rce(s) Supporting Document(s) Red Blood Count 5.41 4.70-6.20 [facility] Platelets 236 130-400 [facility] White Blood Count 9.3 4.3-10.9 [facility] ([facility]) Hemoglobin 17.0 13.0-17.0 [facility] ([facility]) Hematocrit 49.0 39.0-50.0 [facility] ([facility]) ID Date Data Source [id number] 04/13/2020 12:19:30 PM EST [facility] NT INFORMATIONPatient MRN Name Date of Age Gend*PT [id number] Mercy Arreola 1955 64 years F SDCXPT Location Admission Date/Time Visit ID Attending Provider04/11/20 1403 --- Zhanna Harris MD([id number]) EPI ID CSN Admitting Provider [id number] Zhanna Harris MD([id number]) Attestation signed by Zhanna Harris MD at 04/13/2020 12:19 PMATTENDING ADDENDUM:I saw and examined Ms. Arreola today, and agree with the exam, assessment,and plan of damon Benitez, noted above.In brief, Ms. Arreola presents with typical with successful RFA.I agree with the plan as noted above.Beto Harris M.D., [facility], RSClinical Cardiac Electrophysiology04/13/2020 12:18 PM --Cardiology Discharge Summary Mercy ArreolaMRN: [id number] date: 04/11/2020ttending Physician: Zhanna Harris, [facility] Diagnosis: Typical atrial flutterSecondary Diagnoses: Principal Problem: [...] history of tobacco useThe patient presented to [facility] for palpitations witha heart rate [...] VITAMIN C Take 500 mg by mouth evoyyV-Mzanwzo-C Tabs Take 1 tablet by mouth dailydicyclomine [...] Get Your MedicationsThese medications were sent to [id number] - [place], [place] - [address] [place] [address] amLODIPine 5 MG tablet rivaroxaban 20 MG [...] Up: Dr. Lewis on April 19.Signature: Emmanuel Patel, NPDate: April 13, 2020Time: 11:56 AM Name Value Range Interpretation Code Description Data [facility](s) Supporting Document(s) ID Date Data Source [id number] 04/13/2020 06:50:43 AM EST [facility] Name Value Range Interpretation Code Description Data [facility](s) Supporting Document(s) SODIUM 139 mmol/L (136-145) [facility] POTASSIUM 4.3 mmol/L (3.6-5.2) [facility] CHLORIDE 105 mmol/L (100-108) [facility] CO2 25 mmol/L (22-31) [facility] ANION GAP 9 mmol/L (7-16) [facility] UREA NITROGEN 25 mg/dL (7-24) H [facility] CREATININE 0.80 mg/dL (0.60-1.00) [facility] BUN/CREAT RATIO 31.3 RATIO (10.0-20.0) H [facility] GLUCOSE 71 mg/dL (70-99) [facility] CALCIUM 8.9 mg/dL (8.4-10.2) [facility] GFR >60 ml/min/1.73m2 (>59) [facility] GFR ( AMER) >60 ml/min/1.73m2 (>59) [facility] GFR INTERPRETATION [facility] --NORMAL KIDNEY FUNCTION OR MILD DISEASE - GFR >OR= 60CHRONIC KIDNEY DISEASE - GFR 15 - 59RENAL FAILURE - GFR <15 Est. GFR calculation based on the MDRDstudy equation, which assumes a steadystate for creatinine. Est. GFR should notbe used for medication dosing. ID Date Data Source [id number] 04/13/2020 04:36:41 AM EST [facility] Name Value Range Interpretation Code Description Data Kathi rce(s) Supporting Document(s) WBC 8.8 10*3/uL (4.1-11.0) [facility] [place] RBC 5.24 10*6/uL (4.00-5.40) [facility] HGB 17.1 g/dL (12.0-16.0) H [facility] HCT 49.1 % (36.0-47.0) H [facility] PER[facility]MED AT [address] [place] [address] N [place] [address] MCV 93.7 fL (80.0-95.0) [facility] MCH 32.6 pg (27.0-32.0) H [facility] MCHC 34.8 g/dL (32.0-36.0) [facility] RDW 12.4 % (10.5-14.5) [facility] PLT 234 10*3/uL (150-450) [facility] MPV 7.6 fL (7.1-10.7) [facility] ID Date Data Source [id number] 04/12/2020 02:52:[address] [facility] Name Value Range Interpretation Code Description Data Kathi rce(s) Supporting Document(s) &PDF [facility] CQNWNm2eGuNMJtVm18/HCLxdZUKsn5DrFFtkKQa9NDaaGUUlA3PzeSolYEIDXayRR5yNQBxKEc0zSZMo waW [file] [facility]+r5VHnhMdx0+3aOym+Y11MMmrOqcluz0k8HWJa1xwGfhQYgGS2Qa62489Kde9r4Z+2CuT1NU80U [file] JLI5HCKi== ID Date Data Source [id number] 04/12/2020 10:05:[address] [facility] Name Value Range Interpretation Code Description Data Kathi rce(s) Supporting Document(s) &PDF [facility] BTYLPj6fYuPNSiNd61/DFBxrIXEzh0ViZHzkAIh6ROelLRZfJ1TpnYbwQKRZLtjLS4bOSJhDYa8qXDSj waW [file] fiscal agent+zQbyWqb6xdzOZOJ9AqiXJ43bw96Za1inIW0HKb [file] AgICAgICAgICAgICAgICAgICAgICAgICAgICAgICAgICAgICAgICAgICAgICAgICAgICAgICAgICAgIC AgICAgICAgICAgICAgICANCiAgICAgICAgICAgICAg ICAgICAgICAgICAgICAgICAgICAgICAgICAgICAgICAgICAgICAgICAgICAgICAgICAgICAgICAgICAg ICAgICAgICAgICAgICAgICAgICAgICAgICANCiAgICAgICAgICAgICAgICAgICAgICAgICAgICAgICAg ICAgICAgICAgICAgICAgICAgICAgICAgICAgICAgIC AgICAgICAgICAgICAgICAgICAgICAgICAgICAgICAgICAgICANCiAgICAgICAgICAgICAgICAgICAgIC AgICAgICAgICAgICAgICAgICAgICAgICAgICAgICAgICAgICAgICAgICAgICAgICAgICAgICAgICAgIC AgICAgICAgICAgICAgICAgICANCiAgICAgICAgICAg ICAgICAgICAgICAgICAgICAgICAgICAgICAgICAgICAgICAgICAgICAgICAgICAgICAgICAgICAgICAg ICAgICAgICAgICAgICAgICAgICAgICAgICAgICANCiAgICAgICAgICAgICAgICAgICAgICAgICAgICAg ICAgICAgICAgICAgICAgICAgICAgICAgICAgICAgIC AgICAgICAgICAgICAgICAgICAgICAgICAgICAgICAgICAgICAgICANCiAgICAgICAgICAgICAgICAgIC AgICAgICAgICAgICAgICAgICAgICAgICAgICAgICAgICAgICAgICAgICAgICAgICAgICAgICAgICAgIC AgICAgICAgICAgICAgICAgICAgICANCiAgICAgICAg ICAgICAgICAgICAgICAgICAgICAgICAgICAgICAgICAgICAgICAgICAgICAgICAgICAgICAgICAgICAg ICAgICAgICAgICAgICAgICAgICAgICAgICAgICAgICANCiAgICAgICAgICAgICAgICAgICAgICAgICAg ICAgICAgICAgICAgICAgICAgICAgICAgICAgICAgIC AgICAgICAgICAgICAgICAgICAgICAgICAgICAgICAgICAgICAgICAgICANCiAgICAgICAgICAgICAgIC AgICAgICAgICAgICAgICAgICAgICAgICAgICAgICAgICAgICAgICAgICAgICAgICAgICAgICAgICAgIC AgICAgICAgICAgICAgICAgICAgICAgICANCjw/eHBh X6obqDOhmeP6E8weTq4AQv7ZHN0dd4OmQQZmVNehnaXhUueSKwJyPZZyLcwVAmx4NBqqNW1WmSWmD9Vl O3ElWUheGI7HVORbOTXylFIuYGGqLWXxKvL4FQCuHXfaQJ0RzQKmPYqxMPRgCCMwQtLwDSZpDJGjKTIh ND7GTGLxU175nzShCw8BPx3HOkDyTQ5xgt5AXwydNV UzOtnQZge9CYqzXI6YkQKiR5VgkEVtc7vYGrJqZ2FGOBH7HSViLv6SYHJuLnRwWXTtVAbrMJ9jTRUfMB DQrBfrnhG9GR9QFU4otlRgJC1VZuWwQg7tSm7GSaEzS1HfC3QqFJGwVSRFYTjsJW5HCKJmQUZ4PXDdYi OzFUHLZuVfF67jST7RD6Znd71zSkB6UGEnMySvOZxu NZ93uBwfbiFirGZlzKazKL6DCt3+IPuqrdVvYymBCtenCWMRJiXrFobAWqVjWPEkMIKrNFRiKuN7OiSu Tx1YMRRgJQGmOWFcMuVhJZDgBNJzUEooKBQtGQH0PDU0YEQlXIYgVF1SGpTqTJSxSzs7RrAeTSJiYOJo dl7OLQApNJGzRBM2IDYtZJOsFHZvECqvPZXeUGQvWK JhCDIhYUOhBE3ESuMaZLAzBJBuBhjeXTWlXORthl5QCDNzFOCcDrQ7EeAdCUUjTVHdOVtiDRIwYWJ2Js o5ABQrYEZbVN2IAuWoLHThYCt7IjdcGDRbVJRtzp9OAEGgVSUlSnp2VuJxIMIqUTTyWUpfXIShQCA4OB GlPWQfRJFeXV8NGlUnUXUlJKg7DHoqCCYnWZRkdx2J YZYdLVSjXGK4DbDkMAGeBSVlUSpkXHWjYXCsCDYkMDOpCSHnTY6JFdArKWOrYLMiWDTnHLWuKGQlrr5E EBIhIQZnNPOdZZLoAXKtOMVvLGycFOOhIVZ3Ato8QHPdEOPoFX9QMwQpKENqLPY4NPKdBPJwVHJltu0V MEVbVIZhZMubSaOmBPIeTWBrGFhhZPIuOEQ9FVJ4SC GnUBTkFE7CKjYzSAJsKJUvOHPyTBHkQLEtvx6ZGZYoBPEjDtR0QRGeKKEqOHTrAFkqIFZpHXX0PFMrHU EaJYQkLP2DLxXnUDFbUZc9NTWbNQWsIUZaab2IZWRzNSQoLkV1STNuZLTeUASfIFxsZLKzSXQ5KKU6QB WoSHTlZM9LKkWnMUGpHub2GIJkPEOuPVTfef9OBGKg YSIpKOqcSeOrTSBuZKNuRZo8bqVseLJoSYo9WT7PJ9XjyaZuXkbGZr1Pg918BDM7PCAnJz3CR6voRk1t SJVgAIGTXe7YZBh0MoG2ITBdQha4DCQlT1C5BFogB7WvLfZ7Z0H3SBR5AWT+OGhoJPh4KQJeDHnfQNJt OfrxSwL2ESRtSAW2FdFqAGz9Ny4hJELWHt8+VUpvrCHrqOhnVMAXUwT3JCY1NVqrMWFWSz3K ID Date Data Source [id number] 04/12/2020 08:37:[address] [facility] Name Value Range Interpretation Code Description Data Kathi rce(s) Supporting Document(s) EKG [facility] KNUEJj6zQnCBVgBps2NzDvIaTZAqDQ0yjgc4B4J2nZEvD5IihADwx7fbR3AtV9HiJKBgQMKSSU8CkGQc jb2 [file] puncher NU0fbezq0K/4PqMB8tGu5YJaWehY2N7A0+3MW4A6NF+H/tyuTKhF7FBbnM+hTTwkAByF+uyf/ccnYZWA WtY4xSRk4HB7PlEyQukYMtQGHGaK6AZpw3aGCRTZAV lSyMT6XTN1IeYbXCmTUkBCWlseFnuqeJWqOUXmjZKZw/oAUkTdBES+lVoZMuHrMWjikMmVYURUF3kRGP qyJlFQ6kUpjaMAYSsNwpAYfFQ0RoPAB2z3NwOPOkdXwwmlzJYk+GS8WFjwKt2T9rkjweLedcZ+gC+X76 1I6+tG04WGzQUjXWKRf3lymgNVZL9OrBL13haAYq57 YhJvtRhRlfCANdGZjcw11ErDEwpbsWHpvczpU8Tj2zHMhApBhFCOU2ZQPkh+GBiZRrYCLleoquDBrBu9 rwyIqKZZwEy082qHoC+dqviYW0QZIEnDysCqrm+QSU+ULhkOaHrKYp7DPpTMRDNner9vJxS8jXHId5vP h4GAEEPSQ1mxJJVkeMSQWSJuOE0j4Bh8Q33HgFUMYJ [file] Mrp7CnUDZpDDYXGg5+ZmL3STM8jBTpNdg4QyB1MctdSUHQLm== ID Date Data Source [id number] 04/12/2020 06:32:35 AM EST [facility] Name Value Range Interpretation Code Description Data Kathi rce(s) Supporting Document(s) SODIUM 138 mmol/L (136-145) [facility] POTASSIUM 4.3 mmol/L (3.6-5.2) [facility] CHLORIDE 106 mmol/L (100-108) [facility] CO2 24 mmol/L (22-31) [facility] ANION GAP 8 mmol/L (7-16) [facility] UREA NITROGEN 29 mg/dL (7-24) H [facility] CREATININE 0.91 mg/dL (0.60-1.00) [facility] BUN/CREAT RATIO 31.9 RATIO (10.0-20.0) H [facility] GLUCOSE 83 mg/dL (70-99) [facility] CALCIUM 9.0 mg/dL (8.4-10.2) [facility] GFR >60 ml/min/1.73m2 (>59) [facility] GFR ( AMER) >60 ml/min/1.73m2 (>59) [facility] GFR INTERPRETATION [facility] --NORMAL KIDNEY FUNCTION OR MILD DISEASE - GFR >OR= 60CHRONIC KIDNEY DISEASE - GFR 15 - 59RENAL FAILURE - GFR <15 Est. GFR calculation based on the MDRDstudy equation, which assumes a steadystate for creatinine. Est. GFR should notbe used for medication dosing. ID Date Data Source [id number] 04/12/2020 06:02:20 AM EST [facility] Name Value Range Interpretation Code Description Data [facility](s) Supporting Document(s) WBC 8.1 10*3/uL (4.1-11.0) [facility] [place] RBC 5.45 10*6/uL (4.00-5.40) H [facility] HGB 18.1 g/dL (12.0-16.0) H [facility] HCT 50.6 % (36.0-47.0) H [facility] [place] [address] [place] [address] MCV 92.8 fL (80.0-95.0) [facility] MCH 33.1 pg (27.0-32.0) H [facility] MCHC 35.7 g/dL (32.0-36.0) [facility] RDW 12.8 % (10.5-14.5) [facility] PLT 258 10*3/uL (150-450) [facility] MPV 8.0 fL (7.1-10.7) [facility] ID Date Data Source [id number] 04/11/2020 05:34:01 PM EST [facility] NT INFORMATIONPatient MRN Name Date of Age Gend*PT [id number] ShaydanielMercy 1955 64 years F SDCXPT Location Admission Date/Time Visit ID Attending Provider-04/11/20 1403 --- Zhanna Harris MD([id number]) EPI ID CSN Admitting Provider [id number] Zhanna Harris MD([id number]) Attestation signed by Zhanna Harris MD at [...] the plan as noted above.Beto Harris M.D., [facility], [facility]Clinical Cardiac Electrophysiology04/11/2020 4:17 PM --ADMISSION HISTORY [...] Lyme disease, status post treatment . Babeosis, [address]. Atrial flutter status post multiple DC cardioversions. Patient on Xarelto.4. Distant history of tobacco useThe patient presented [facility] for palpitations witha heart rate [...] 15 mg daily, although review of records hoysgrsm77 mg daily which would be the appropriate dose.The patient denies any history of TIA/CVA, CAD, PAD. Reports extensive testingin 2017 by her public safety dispatcher. She currently denies any symptoms other thanfatigue [...] file Gets together: Not on file Attends oriental orthodox service: Not on file Active member of [...] symmetricSkin: No rash or lumps.Neurologic: Grossly normalDiagnosticsLabs, [facility]:Glucose 94Creatinine 0.68Sodium 138Potassium 4.1AST 49ALT 76Mag [...] amiodarone, she wasloaded [facility] at [facility]. Continue oral cardizem. Start PO amiodarone.Monitor blood pressure and heart rate. Continue Xarelto, 20mg dose as she hasnormal creatinine.Plan RFA ablation for tomorrow. Further recommendations per Dr. Harris.Follow up with Dr. Galarza in 1-2 weeks after discharge.Signature: Dominick OrozcoMIRELLAate: April 11, 2020Time: 2:11 PM Name Value Range Interpretation Code Description Data Kathi rce(s) Supporting Document(s) ID Date Data Source [id number] 04/11/2020 04:54:08 PM EST [facility] Name Value Range Interpretation Code Description Data Kathi rce(s) Supporting Document(s) SODIUM 142 mmol/L (136-145) [facility] POTASSIUM 4.5 mmol/L (3.6-5.2) [facility] CHLORIDE 105 mmol/L (100-108) [facility] CO2 24 mmol/L (22-31) [facility] ANION GAP 13 mmol/L (7-16) [facility] UREA NITROGEN 17 mg/dL (7-24) [facility] CREATININE 0.70 mg/dL (0.60-1.00) [facility] BUN/CREAT RATIO 24.3 RATIO (10.0-20.0) H [facility] GLUCOSE 78 mg/dL (70-99) [facility] CALCIUM 9.4 mg/dL (8.4-10.2) [facility] TOTAL PROTEIN 6.2 g/dL (6.4-8.2) L [facility] ALBUMIN 3.7 g/dL (3.2-4.5) [facility] GLOBULIN 2.5 g/dL (2.7-4.3) L [facility] ALB/GLOB RATIO 1.5 RATIO [facility] ALKALINE PHOSPHATASE 111 U/L (45-117) [facility] BILIRUBIN,TOTAL 0.9 mg/dL (0.0-1.0) [facility] PLEASE NOTE:Total bilirubin results may be falselyelevated in patients taking Eltrombopag. AST (SGOT) 51 U/L (11-39) H [facility] ALT (SGPT) 82 U/L (12-78) H [facility] GFR >60 ml/min/1.73m2 (>59) [facility] GFR ( AMER) >60 ml/min/1.73m2 (>59) [facility] GFR INTERPRETATION [facility] --NORMAL KIDNEY FUNCTION OR MILD DISEASE - GFR >OR= 60CHRONIC KIDNEY DISEASE - GFR 15 - 59RENAL FAILURE - GFR <15 Est. GFR calculation based on the MDRDstudy equation, which assumes a steadystate for creatinine. Est. GFR should notbe used for medication dosing. ID Date Data Source [id number] 04/11/2020 04:38:13 PM EST [facility] Name Value Range Interpretation Code Description Data Kathi rce(s) Supporting Document(s) APTT 31.3 s (22.0-34.3) [facility] PER[facility] AT [address] [place] [address] N [place] [id number] ID Date Data Source [id number] 04/11/2020 04:38:13 PM EST [facility] Name Value Range Interpretation Code Description Data Kathi rce(s) Supporting Document(s) PT 11.7 s (9.2-11.9) [facility] PERFORMED AT [address] [place] [address] N Y [address] INR 1.12 [facility] SUGGESTED THERAPEUTIC RANGES USING INR F ORSTABILIZED ANTICOAGULATED PATIENTS:STANDARD DOSE THERAPY INR 2.0-3.0 DVT, PE, PREVENT DVT OR EMBOLISMHIGH DOSE THERAPY INR 2.5-3.5 PREVENT EMBOLISM FROM MECHANICAL HEART VALVE ID Date Data Source [id number] 04/11/2020 04:31:31 PM EST [facility] Name Value Range Interpretation Code Description Data Kathi rce(s) Supporting Document(s) WBC 9.0 10*3/uL (4.1-11.0) [facility] [place] RBC 5.81 10*6/uL (4.00-5.40) H [facility] HGB 19.1 g/dL (12.0-16.0) H [facility] HCT 54.4 % (36.0-47.0) H [facility] PER[facility] AT [address] [place] [address] [address] [place] [address] MCV 93.7 fL (80.0-95.0) [facility] MCH 32.9 pg (27.0-32.0) H [facility] MCHC 35.1 g/dL (32.0-36.0) [facility] RDW 12.8 % (10.5-14.5) [facility] PLT 274 10*3/uL (150-450) [facility] MPV 8.4 fL (7.1-10.7) [facility] ID Date Data Source [id number] 04/11/2020 02:17:[address] [facility] Name Value Range Interpretation Code Description Data Kathi rce(s) Supporting Document(s) EKG [facility] JRGJHf3xIuKUYaPus4GvBdWaVACeDX7dhuo9S1O5uSMhF1RvxUSsh7qdU5UvP4ZkWNPnEERCDY7QcFYm jb2 [file] eTHVYbFQBcFrbauunm2mkfQhuyNFoI6eJ6xPCbkMO6lVoF73drlllC4JzqkpBu0eDocQD/hX81ukN/transportation coordinator tl/JRJwmFYJdh5kYYgSOvzYDiqnK5L20qd+SuuJtFU0Y1rJ0rUvKSQbnGUpqzD1SIMo8ZoTh4HD9kWZc lGvGsRSVDGWusKn/nJfWpiGOJZRgxLHoZ//zX//7P/ 0vV9goYA3q//7nf/1f9f/45z//zz//539Yl/li68cYt/tqH9Bkmf94R8iodjj4+D+s/HsFlfrpr/2HLW pnm43kYyrzM/fdD9xR5zsY0W4/BB3uon2MSSZqHzH1iXOBaEmApU2nkB22a7ems1qTzPZ/4/1jO7cV0e UQ2jcz34+egf9+4IiN4V/W5Qb6/6k58N3smEY+fO2r fA7Bcspbjw9j5m7d55+4rSkK/q/9d+7/2h8k/r0wjF/9xs9XLbA/htrsWDw84yuoh+ZvhgNVkv8Ia1XI b9x+XMi5bGnyE+NyrT4k/Ud4GNeI+yUJaeJ+kc1N28k3/CDpf00MmdMWT3rq+395rFaKqqbzXJ2wh4uR +2zYPoCpKAgh6/fK/GEP29/crVWx3P5N9jpz27QfY8 5vV/RMytgHfH/6zqkKD34PrBP2tEzAd9UCqb/2ugoc+NpHoQLW/sbdj0v/6pC9riC4GrObBfQ6mfH5vF 8LXcHXdhc6Waex6Ls8Q+j+0PS1uS1hkIiw/4Fc6b+Xoudj3Xxlvy4Lm6lomtp5cgHNn6/4Fr//4O21u/ 0f4D9wJCZZSKjqqz0WMnL/mrPLMkxbxtr5Mp8gkk9W kZituRvFlciuZPvOsB0hbZvyRUve/Z10YZ+3bvCO/P6coKFIbEE15RvkzcZ77lzAhcYl/eAPRisWT1Qd CreIMAReESjM/5Weg1ADQzL/zVT+imwU9Dx1uvyjDV6q8N/5o2cX5GOgEDoWxk/4bR7fOjlI3upiT6+O 0KlEz7hf57tEix/gNBp9EE1pUhbnK/HrghYnzT5CnZ /eIRpT0TnO4IWogq3HUzKP5RdIeOIhmz9RSDGJH0Se8JM1BS/+Ntg8W3DKQ03rPVmPCy8o/fv7fZW++1 5L3lY16fa40JntzGN5pjUh2pZE8j99R2H5sQdAdHWPhPxjwuCpYI+dfueFad1MSC0cblWRa6f2WO3P4+ Dj+YK5iiOMs+u/xWqi8mW2Tb0UtnCzXZuysJUuhlG0 CwlIesQOa5zvzA6ZA9gqQKhO2ifxFjvN1BcFYJ5WqZlHiWRs54TqE9k3BV3CJRRyDaEXZ+0OXzYvq6Zj HoM9F1tjgIIaLzwssu+HSdEqKPyilDOalruO9kjyc00/08OvmFz9d7OCecrxvcY64jcV40DlQsbQkcLr y635d+IVnnUnXkGeO/CAuUMJY4rYKglHpeLfITmnqO mR1bX89b+clLR8aLTRjYK/lJVA4fp/53M7VR2vW6vjSkIDpJ0Blkj5P1Zycq/hf6EYskH7JJTKkTi+5I So0bsDmPlAu1olat/RF4dgP2l5+82w/95f25SNUN/hnfibG/92GhfUWkS2QmK/eHfgmRAewjEhPRB+iX Keara/cjeCXi+W4P7eZIZ+CSCNkAXhFDOvUr/s79fQ3D 7gjpZvBG/JLL6aA5HuzEFqGeE14Qv+Kk6aV0LS8Gjir/cwWv/437d2P/lT3965Pg6pxNDqWwWjWoc/Chelly [file] qyM7r6DHNbLDtvGU6zokKfHKHjLskjTl7svWV2GNQmZubRSn9Qt9AlgvK2jiHuMmPkWNu5HmFuJK8Y ID Date Data Source [id number] 04/11/2020 09:13:00 AM EST [facility] Name Value Range Interpretation Code Description Data Kathi rce(s) Supporting Document(s) Magnesium Level 2.2 [facility] ID Date Data Source [id number] 04/11/2020 09:13:00 AM EST [facility] ([facility]) Name Value Range Interpretation Code Description Data Kathi rce(s) Supporting Document(s) Sodium 138 [facility] ([facility]) Calcium [Mass/volume] in Serum or Plasma 9.2 [facility] ([facility]) Chloride [Moles/volume] in Serum or Plasma 106 [facility] ([facility]) Carbon dioxide, total [Moles/volume] in Serum or Plasma 25 [facility] ([facility]) Blood Urea Nitrogen 15 5-21 [facility] (Ca [facility]diology [facility]) Potassium [Moles/volume] in Serum or Plasma 4.1 [facility] ([facility]) Glucose 94 70-100 [facility] ([facility]) Creatinine 0.68 0.6-1.5 [facility] ([facility]) Glomerular filtration rate/1.73 sq M.pre dicted [Volume Rate/Area] in Serum or Plasma by Creatinine-based formula (MDRD) 60.0 [facility] (Cardiology [facility]) ID Date Data Source [id number] 04/11/2020 09:13:00 AM EST [facility] Name Value Range Interpretation Code Description Data Kathi rce(s) Supporting Document(s) Alkaline phosphatase [Enzymatic activity/volume] in Serum or Plasma 1 04 [facility] ([facility]) Aspartate aminotransferase [Enzymatic activity/volume] in Serum or Plasma 49 [facility] (Cardiology [facility]) Bilirubin.total [Mass/volume] in Serum or Plasma 0.7 [facility] ([facility]) Alanine aminotransferase [Enzymatic activity/volume] in Serum or Pl asma 76 [facility] (Cardiology [facility]) Bilirubin.direct [Mass/volume] in Serum or Plasma 0.3 [facility] (Cardiology [facility]) Protein [Mass/volume] in Serum or Plasma 6.0 [facility] (Cardiology [facility]) Albumin [Mass/volume] in Serum or Plasma 3.4 [facility] (Cardiology [facility]) Cholesterol [Mass/volume] in Serum or Plasma Laboratory test result [facility] (Cardiology [facility]) ID Date Data Source [id number] 04/11/2020 09:13:00 AM EST [facility] ([facility] Name Value Range Interpretation Code Description Data Kathi rce(s) Supporting Document(s) White Blood Count 10.1 4.3-10.9 [facility] (Card [facility]) Platelets 279 130-400 [facility] Red Blood Count 5.54 4.70-6.20 [facility] (Cardio logy [facility]) Hematocrit 51.3 39.0-50.0 [facility] (Cardiology [facility]) Hemoglobin 17.7 13.0-17.0 [facility] (Card[facility]) ID Date Data Source [id number] 04/10/2020 01:21:00 PM EST [facility] Name Value Range Interpretation Code Description Data Kathi rce(s) Supporting Document(s) SARS coronavirus 2 RNA [Presence] in Res piratory specimen by RISHABH with probe detection [facility] This lab was ordered by [facility] a nd reported by [facility]. ID Date Data Source [id number] 04/10/2020 12:55:00 PM EST [facility] ([facility]) Name Value Range Interpretation Code Description Data Kathi rce(s) Supporting Document(s) Red Blood Count 5.60 10 4.00-5.40 Above high normal [place] [facility] ([facility]) White Blood Count 5.9 10 4.0-10.0 Normal (applies to non-numeri c results) [facility] ([facility]) Hematocrit 53.3 % 36.0-47.0 Above high normal [facility] ([facility]) Hemoglobin 17.4 g/dL 12.0-15.5 Above high normal [facility] ([facility]) Mean Corpuscular HGB Conc 32.6 g/dL 32.0-36.5 Normal (applies to non-numeric results) [facility] ([facility]) Mean Corpuscular Hemoglobin 31.1 pg 27.0-33.0 Norm al (applies to non-numeric results) [facility] ([facility]) Mean Corpuscular Volume 95.2 fl 80.0-96.0 Normal ( applies to non-numeric results) [facility] ([facility]) Red Cell Distribution Width 12.2 % 11.5-14.5 Norm al (applies to non-numeric results) [facility] ([facility]) Platelet Count, Automated 263 10 150-450 Normal (applies to non-numeric results) [facility] ([facility]) Nucleated Red Blood Cell % 0.0 % 0-0 Normal (applies to n on-numeric results) [facility] ([facility]) ID Date Data Source [id number] 04/10/2020 12:55:00 PM EST [facility] ([facility]) Name Value Range Interpretation Code Description Data Kathi rce(s) Supporting Document(s) Glucose, Fasting 84 mg/dL 70-100 Normal (applies to non-numeric results) [facility] ([facility]) Blood Urea Nitrogen 17 mg/dL 7-18 Normal (applies to non-nume kelly results) [facility] ([facility]) Creatinine For GFR 0.69 mg/dL 0.55-1.30 Normal (applies to non -numeric results) [facility] ([facility]) Sodium Level 141 meq/L 136-145 Normal (applies to non-numeric res ults) [facility] Potassium Serum 4.0 meq/L 3.5-5.1 Normal (applies to non-numeric results) [facility] ([facility]) Glomerular Filtration Rate Laboratory test result Normal (applies to non- numeric results) [facility] ([facility]) <content>Units are mL/min/1.73 m2</content>
<content></content>
<content>Chronic Kidney Disease Staging per NKF:</content>
<content></content>
<content>Stage I & II GFR >=60 Normal to Mildly Decreased</content>
<content>Stage III GFR 30- 59 Moderately Decreased</content>
<content>Stage IV GFR 15-29 Severely Decreased</content>
<content>Stage V GFR <15 Very Little GFR Left</content>
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
<content></content> Chloride Level 107 meq/L 98-107 Normal (applies to non-numeric r esults) [facility] ([facility]) Anion Gap 7 meq/L 8-16 Below low normal [facility] ( [facility]) Carbon Dioxide Level 27 meq/L 21-32 Normal (applies to non-num pop results) [facility] ([facility]) Calcium Level 8.6 mg/dL 8.8-10.2 Below low normal [facility] T ([facility]) Ast/Sgot 40 U/L 7-37 Above high normal [facility] ([facility]) Alkaline Phosphatase 95 U/L 45-117 Normal (applies to non-num pop results) [facility] ([facility]) Alt/SGPT 69 U/L 12-78 Normal (applies to non-numeric resul ts) [facility] ([facility]) Bilirubin,Total 0.5 mg/dL 0.2-1.0 Normal (applies to non-numeric results) [facility] ([facility]) Total Protein 5.7 GM/DL 6.4-8.2 Below low normal [facility] ([facility]) Albumin 3.4 GM/DL 3.2-5.2 Normal (applies to non-numeric resul ts) [facility] ([facility]) Albumin/Globulin Ratio 1.5 1.2-2.2 Normal (applies to non-n umeric results) [facility] ([facility]) ID Date Data Source [id number] 04/10/2020 12:55:00 PM EST [facility] ([facility]) Name Value Range Interpretation Code Description Data Kathi rce(s) Supporting Document(s) CPK Creatine Phosphokinase 47 U/L 26-192 Queenie l (applies to non-numeric results) [facility] ([facility]) MB/CK Relative Index 2.55 Normal (applies to non-num pop results) [facility] ([facility]) <content>DIAGNOSIS CRITERIA</content>
<content>MMB ng/ml Relative Index (RI)</content>
<content>NON-AMI < or = 5 N/A</content>
<content>NGUYEN ZONE > 5 < or = 4</content>
<content>AMI > 5 > 4</content>
<content></content> CK-MB Value Mass 1.2 ng/mL Normal (applies to non-numeric results) [facility] ([facility]) Troponin I Laboratory test result Normal (applies to non-n umeric results) [facility] ([facility]) <content>Troponin I Reference Interval f or Siemens Baltic LOCI:</content>
<content></content>
<content>99th Percentile= 0.00-0.045 ng/ml</content>
<content></content>
<content>Risk Stratification:</content>
<content><= 0.10 ng/ml Decreased Risk for Adverse Clinical</content>
<content>Events.</content>
<content>0.10-1.50 ng/ml Increased Risk for Adverse Clinical</content>
<content>Events. Evaluation of additional</content>
<content>criterion and/or repeat testing in 2-6</content>
<content>hours is suggested to rule out myocardial</content>
<content>damage.</content>
<content>>= 1.50 ng/ml Indicative of Myocardial Injury.</content>
<content></content> ID Date Data Source [id number] 04/10/2020 08:45:00 AM EST [facility] ([facility]) Name Value Range Interpretation Code Description Data Kathi rce(s) Supporting Document(s) Laboratory test finding (navigational concept) 1.3 Normal (applies to non- numeric results) [facility] ([facility]) Laboratory test finding (navigational concept) 15.8 s 1 2.1-14.4 Above high normal [facility] ([facility]) ID Date Data Source [id number] 04/10/2020 08:34:00 AM EST [facility] ([facility]) Name Value Range Interpretation Code Description Data Kathi rce(s) Supporting Document(s) Laboratory test finding (navigational concept) 0.00 ng/mL 0 .00-0.08 Normal (applies to non-numeric results) [facility]) ID Date Data Source [id number] 04/10/2020 08:33:00 AM EST [facility] ([facility]) Name Value Range Interpretation Code Description Data Kathi rce(s) Supporting Document(s) Laboratory test finding (navigational concept) 50.0 % 3 8.0-51.0 Normal (applies to non-numeric results) [facility] ([facility]) Laboratory test finding (navigational concept) 140 meq/L 1 36-145 Normal (applies to non-numeric results) [facility] ([facility]) Laboratory test finding (navigational concept) 132 mg/dL 7 0-105 Above high normal [facility] ([facility]) Laboratory test finding (navigational concept) 4.7 mg/dL 4 .5-5.3 Normal (applies to non-numeric results) [facility] ([facility]) Laboratory test finding (navigational concept) 101 meq/L 9 8-109 Normal (applies to non-numeric results) [facility] ([facility]) Laboratory test finding (navigational concept) 4.1 meq/L 3 .5-5.1 Normal (applies to non-numeric results) [facility] ([facility]) Laboratory test finding (navigational concept) 29.0 MM/L 2 3.0-27.0 Above high normal [facility] ([facility]) Laboratory test finding (navigational concept) 20 mg/dL 8 -26 Normal (applies to non-numeric results) [facility] ([facility]) Laboratory test finding (navigational concept) 0.8 mg/dL 0 .6-1.3 Normal (applies to non-numeric results) [facility] ([facility]) ID Date Data Source [id number] 04/10/2020 08:30:00 AM EST [facility] ([facility]) Name Value Range Interpretation Code Description Data Kathi rce(s) Supporting Document(s) Red Blood Count 5.60 10 4.00-5.40 Above high normal [place] [facility] ([facility]) White Blood Count 5.9 10 4.0-10.0 Normal (applies to non-numeri c results) [facility] ([facility]) Hematocrit 53.3 % 36.0-47.0 Above high normal [facility] ([facility]) Mean Corpuscular Volume 95.2 fl 80.0-96.0 Normal ( applies to non-numeric results) [facility] ([facility]) Hemoglobin 17.4 g/dL 12.0-15.5 Above high normal [facility] ([facility]) Mean Corpuscular Hemoglobin 31.1 pg 27.0-33.0 Norm al (applies to non-numeric results) [facility] ([facility]) Mean Corpuscular HGB Conc 32.6 g/dL 32.0-36.5 Normal (applies to non-numeric results) [facility] ([facility]) Red Cell Distribution Width 12.2 % 11.5-14.5 Norm al (applies to non-numeric results) [facility] ([facility]) Nucleated Red Blood Cell % 0.0 % 0-0 Normal (applies to n on-numeric results) [facility] ([facility]) Platelet Count, Automated 263 10 150-450 Normal (applies to non-numeric results) [facility] ([facility]) ID Date Data Source [id number] 04/10/2020 08:30:00 AM EST [facility] ([facility]) Name Value Range Interpretation Code Description Data Kathi rce(s) Supporting Document(s) Thyrotropin [Units/volume] in Serum or Plasma 2.030 uIU/ML 0. 358-3.740 Normal (applies to non-numeric results) [facility] ([facility]) ID Date Data Source [id number] 04/07/2020 11:45:00 AM EST [facility] ([facility]) Name Value Range Interpretation Code Description Data Kathi rce(s) Supporting Document(s) EKG Laboratory test result [facility] ([facility]) ID Date Data Source [id number] 04/03/2020 10:53:00 AM EST [facility] ([facility] Name Value Range Interpretation Code Description Data Kathi rce(s) Supporting Document(s) Magnesium Level 2 [facility] (Cardio [facility]) ID Date Data Source [id number] 04/03/2020 10:53:00 AM EST [facility] Name Value Range Interpretation Code Description Data Kathi rce(s) Supporting Document(s) Alanine aminotransferase [Enzymatic activity/volume] in Serum or Pl asma 61 [facility] ([facility]) Calcium [Mass/volume] in Serum or Plasma 8.6 [facility] ([facility]) Albumin [Mass/volume] in Serum or Plasma 3.3 [facility] ([facility]) Carbon dioxide, total [Moles/volume] in Serum or Plasma 27 [facility] ([facility]) Alkaline phosphatase [Enzymatic activity/volume] in Serum or Plasma 9 7 [facility] ([facility]) Potassium [Moles/volume] in Serum or Plasma 4.4 [facility] ([facility]) Chloride [Moles/volume] in Serum or Plasma 104 [facility] ([facility]) Protein [Mass/volume] in Serum or Plasma 5.8 [facility] ([facility]) Sodium 139 [facility] ([facility]) Urea nitrogen [Mass/volume] in Serum or Plasma 26 [facility] ([facility]) Aspartate aminotransferase [Enzymatic activity/volume] in Serum or Plasma 30 [facility] ([facility]) Glucose 86 70-100 [facility] ([facility]) Creatinine For GFR 0.81 [facility] (Car diology [facility]) ID Date Data Source [id number] 04/03/2020 10:53:00 AM EST [facility] ([facility]i [facility]y [facility]) Name Value Range Interpretation Code Description Data Kathi rce(s) Supporting Document(s) White Blood Count 7.7 4.3-10.9 [facility] (Card iology [facility]) Red Blood Count 5.34 4.70-6.20 [facility] ([facility]io [facility]) Platelets 268 130-400 [facility] Hemoglobin 17.1 13.0-17.0 [facility] ([facility]) Hematocrit 50.9 39.0-50.0 [facility] ([facility]) ID Date Data Source [id number] 04/02/2020 04:00:00 AM EST [facility] Name Value Range Interpretation Code Description Data Kathi rce(s) Supporting Document(s) SARS coronavirus 2 RNA [Presence] in Res piratory specimen by RISHABH with probe detection [facility] This lab was ordered by [facility] a nd reported by [facility]. ID Date Data Source [id number] 03/30/2020 06:13:00 PM EST [facility] ([facility]) Name Value Range Interpretation Code Description Data Kathi rce(s) Supporting Document(s) Thyrotropin [Units/volume] in Serum or Plasma 2.050 uIU/ML 0. 358-3.740 Normal (applies to non-numeric results) [facility] ([facility]) Thyroxine (T4) free [Mass/volume] in Serum or Plasma 1.30 ng/dL 0.76-1.46 Normal (applies to non-numeric results) [facility] ([facility]) Digoxin [Mass/volume] in Serum or Plasma 0.1 ng/mL 0.5-2.0 Below low normal [facility] ([facility]) ID Date Data Source [id number] 03/30/2020 06:13:00 PM EST [facility] ([facility]) Name Value Range Interpretation Code Description Data Kathi rce(s) Supporting Document(s) Glucose, Fasting 80 mg/dL 70-100 Normal (applies to non-numeric results) [facility] ([facility]) Blood Urea Nitrogen 22 mg/dL 7-18 Above high normal [facility] ([facility]) Creatinine For GFR 0.84 mg/dL 0.55-1.30 Normal (applies to non -numeric results) [facility] ([facility]) Glomerular Filtration Rate Laboratory test result Normal (applies to non- numeric results) [facility]) <content>Units are mL/min/1.73 m2</content>
<content></content>
<content>Chronic Kidney Disease Staging per NKF:</content>
<content></content>
<content>Stage I & II GFR >=60 Normal to Mildly Decreased</content>
<content>Stage III GFR 30- 59 Moderately Decreased</content>
<content>Stage IV GFR 15-29 Severely Decreased</content>
<content>Stage V GFR <15 Very Little GFR Left</content>
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
<content></content> Sodium Level 141 meq/L 136-145 Normal (applies to non-numeric res ults) [facility] ([facility]) Potassium Serum 4.1 meq/L 3.5-5.1 Normal (applies to non-numeric results) [facility] ([facility]) Anion Gap 4 meq/L 8-16 Below low normal [facility] ( [facility]) Carbon Dioxide Level 29 meq/L 21-32 Normal (applies to non-num pop results) [facility] ([facility]) Chloride Level 108 meq/L 98-107 Above high normal [facility] ([facility]) Calcium Level 8.7 mg/dL 8.8-10.2 Below low normal [facility] ([facility]) ID Date Data Source [id number] 03/30/2020 06:13:00 PM EST [facility] ([facility]) Name Value Range Interpretation Code Description Data Kathi rce(s) Supporting Document(s) Ast/Sgot 63 U/L 7-37 Above high normal [facility] ([facility]) Alt/SGPT 100 U/L 12-78 Above high normal [facility] ([facility]) Bilirubin,Direct 0.2 mg/dL 0.0-0.2 Normal (applies to non-numeric results) [facility] ([facility]) Bilirubin,Total 0.6 mg/dL 0.2-1.0 Normal (applies to non-numeric results) [facility] ([facility]) Alkaline Phosphatase 103 U/L 45-117 Normal (applies to non-num pop results) [facility] ([facility]) Total Protein 6.1 GM/DL 6.4-8.2 Below low normal [facility] ([facility]) Albumin 3.6 GM/DL 3.2-5.2 Normal (applies to non-numeric resul ts) [facility] ([facility]) Albumin/Globulin Ratio 1.4 1.2-2.2 Normal (applies to non-n umeric results) [facility] ([facility]) ID Date Data Source [id number] 03/30/2020 06:13:00 PM EST [facility] ([facility]) Name Value Range Interpretation Code Description Data Kathi rce(s) Supporting Document(s) CK-MB Value Mass 3.0 ng/mL Normal (applies to non-numeric results) [facility] ([facility]) CPK Creatine Phosphokinase 82 U/L 26-192 Queenie l (applies to non-numeric results) [facility] ([facility]) Troponin I Laboratory test result Normal (applies to non-n umeric results) [facility] ([facility]) <content>Troponin I Reference Interval f or Siemens [place] LOCI:</content>
<content></content>
<content>99th Percentile= 0.00-0.045 ng/ml</content>
<content></content>
<content>Risk Stratification:</content>
<content><= 0.10 ng/ml Decreased Risk for Adverse Clinical</content>
<content>Events.</content>
<content>0.10-1.50 ng/ml Increased Risk for Adverse Clinical</content>
<content>Events. Evaluation of additional</content>
<content>criterion and/or repeat testing in 2-6</content>
<content>hours is suggested to rule out myocardial</content>
<content>damage.</content>
<content>>= 1.50 ng/ml Indicative of Myocardial Injury.</content>
<content></content> MB/CK Relative Index 3.66 Normal (applies to non-num pop results) [facility] ([facility]) <content>DIAGNOSIS CRITERIA</content>
<content>MMB ng/ml Relative Index (RI)</content>
<content>NON-AMI < or = 5 N/A</content>
<content>NGUYEN ZONE > 5 < or = 4</content>
<content>AMI > 5 > 4</content>
<content></content> ID Date Data Source [id number] 03/30/2020 06:13:00 PM EST [facility] ([facility]) Name Value Range Interpretation Code Description Data Kathi rce(s) Supporting Document(s) aPTT in Platelet poor plasma by Coagulation assay 30.0 s 24.2-38.5 Normal (applies to non-numeric results) [facility] ([facility]) ID Date Data Source [id number] 03/30/2020 06:13:00 PM EST [facility] ([facility]) Name Value Range Interpretation Code Description Data Kathi rce(s) Supporting Document(s) Inr 1.09 Normal (applies to non-numeric resul ts) [facility] ([facility]) THERAPUTIC HUMAN INR VALUES INDICATIONS NORMAL RANGES PROPHYLAXIS/TREATMENT OF: VENOUS THROMBOSIS 2.0-3.0 PULMONARY EMBOLISM 2.0-3.0 PREVENTION OF SYSTEMIC EMBOLISM FROM: TISSUE HEART VALVES 2.0-3.0 ACUTE MYOCARDIAL INFARCTION 2.0-3.0 VALVULAR HEART DISEASE 2.0-3.0 ATRIAL FIBRILLATION 2.0-3.0 MECHANICAL VALVES(HIGH RISK) 2.5-3.5 RECURRENT MYOCARDIAL INFARCTION 2.5-3.5 Prothrombin Time 14.3 s 12.5-14.3 Above high normal [facility] ([facility]) ID Date Data Source [id number] 03/30/2020 06:13:00 PM EST [facility] ([facility]) Name Value Range Interpretation Code Description Data Kathi rce(s) Supporting Document(s) Red Blood Count 5.01 10 4.00-5.40 Normal (applies to non-numeric results) [facility] ([facility]) White Blood Count 10.1 10 4.0-10.0 Above high normal [facility] ([facility]) Hematocrit 48.1 % 36.0-47.0 Above high normal [facility] ([facility]) Mean Corpuscular Volume 96.0 fl 80.0-96.0 Normal ( applies to non-numeric results) [facility] ([facility]) Hemoglobin 16.3 g/dL 12.0-15.5 Above high normal [facility] ([facility]) Mean Corpuscular HGB Conc 33.9 g/dL 32.0-36.5 Normal (applies to non-numeric results) [facility] ([facility]) Mean Corpuscular Hemoglobin 32.5 pg 27.0-33.0 Norm al (applies to non-numeric results) [facility] Red Cell Distribution Width 12.6 % 11.5-14.5 Norm al (applies to non-numeric results) [facility] ([facility]) Lymph % 16.2 % 24.0-44.0 Below low normal [facility] ( [facility]) Neutrophils % 74.0 % 36.0-66.0 Above high normal [facility] NT ([facility]) Platelet Count, Automated 259 10 150-450 Normal (applies to non-numeric results) [facility] ([facility]) Eos % 0.1 % 0.0-3.0 Normal (applies to non-numeric resul ts) [facility] ([facility]) [place] % 9.0 % 0.0-5.0 Above high normal [facility] ([facility]) Immature Granulocyte % 0.3 % 0-3.0 Normal (applies to non-n umeric results) [facility] ([facility]) Baso % 0.4 % 0.0-1.0 Normal (applies to non-numeric resul ts) [facility] ([facility]) Nucleated Red Blood Cell % 0.0 % 0-0 Normal (applies to n on-numeric results) [facility] ([facility]) Neutrophils # 7.5 10 1.5-8.5 Normal (applies to non-numeric re sults) [facility] ([facility]) Lymph # 1.6 10 1.5-5.0 Normal (applies to non-numeric resul ts) [facility] ([facility]) [place] # 0.9 10 0.0-0.8 Above high normal [facility] ([facility]) Eos # 0.0 10 0.0-0.5 Normal (applies to non-numeric resul ts) [facility] ([facility]) Baso # 0.0 10 0.0-0.2 Normal (applies to non-numeric resul ts) [facility] ([facility]) ID Date Data Source [id number] 03/30/2020 06:11:00 PM EST [facility] ([facility]) Name Value Range Interpretation Code Description Data Kathi rce(s) Supporting Document(s) Ethanol [Mass/volume] in Serum or Plasma 0.003 % 0.000-0 .010 Normal (applies to non-numeric results) [facility] ([facility]) Magnesium [Mass/volume] in Serum or Plasma 2.3 mg/dL 1.8-2 .4 Normal (applies to non-numeric results) [facility] ([facility]) ID Date Data Source [id number] 10/18/2019 11:04:00 AM EDT [facility] ([facility]) Name Value Range Interpretation Code Description Data Kathi rce(s) Supporting Document(s) Alanine aminotransferase [Enzymatic activity/volume] in Serum or Pl asma 66 [facility] ([facility]) Albumin [Mass/volume] in Serum or Plasma 3.7 [facility] ([facility]) Carbon dioxide, total [Moles/volume] in Serum or Plasma 27 [facility] ([facility]) Chloride [Moles/volume] in Serum or Plasma 109 [facility] ([facility]) Calcium [Mass/volume] in Serum or Plasma 8.9 [facility] ([facility]) Alkaline phosphatase [Enzymatic activity/volume] in Serum or Plasma 8 1 [facility] ([facility]) Aspartate aminotransferase [Enzymatic activity/volume] in Serum or Plasma 33 [facility] ([facility]) Sodium 143 [facility] ([facility] Protein [Mass/volume] in Serum or Plasma 6.4 [facility] ([facility]) Potassium [Moles/volume] in Serum or Plasma 4.4 [facility] ([facility]) Creatinine For GFR 0.76 [facility] ([facility]) Urea nitrogen [Mass/volume] in Serum or Plasma 14 [facility] ([facility]) Glucose 90 70-100 [facility] ([facility] ID Date Data Source [id number] 10/18/2019 11:04:00 AM EDT [facility] Name Value Range Interpretation Code Description Data Kathi rce(s) Supporting Document(s) White Blood Count 5.5 4.0-10.0 [facility] Hematocrit 44.0 [facility] ([facility]) Hemoglobin 14.6 [facility] ([facility]) Platelets 245 150-450 [facility] ([facility] Red Blood Count 4.72 4.00-5.40 [facility] ([facility]) ID Date Data Source [id number] 08/30/2019 10:18:00 AM EDT [facility] Name Value Range Interpretation Code Description Data Kathi rce(s) Supporting Document(s) Tibc % Saturation 52.4 [facility] Iron binding capacity [Mass/volume] in Serum or Plasma 292 [facility] ([facility]) Iron 153 50-170 [facility] ([facility] ID Date Data Source [id number] 07/29/2019 10:16:00 AM EDT [facility] Name Value Range Interpretation Code Description Data Kathi rce(s) Supporting Document(s) Tibc % Saturation 40.3 [facility] ([facility]) Iron 129 50-170 [facility] ([facility] Iron binding capacity [Mass/volume] in Serum or Plasma 320 [facility] ([facility]) ID Date Data Source [id number] 07/29/2019 10:16:00 AM EDT [facility] Name Value Range Interpretation Code Description Data Kathi rce(s) Supporting Document(s) White Blood Count 8.8 4.0-10.0 [facility] Platelets 260 150-450 [facility] ([facility] Red Blood Count 4.81 4.0-5.40 [facility] ([facility]) Hematocrit 44.8 [facility] ([facility]) Hemoglobin 15.6 [facility] ([facility]) ID Date Data Source [id number] 07/02/2019 10:08:00 AM EDT [facility] Name Value Range Interpretation Code Description Data Kathi rce(s) Supporting Document(s) Red Blood Count 4.92 4.00-5.40 [facility] ([facility]) White Blood Count 6.4 4.0-10.0 [facility] Hematocrit 46.3 [facility] ([facility]) Platelets 297 150-450 [facility] ([facility]) Hemoglobin 15.5 [facility] ([facility]) ID Date Data Source [id number] 07/02/2019 10:08:00 AM EDT [facility] ([facility] Name Value Range Interpretation Code Description Data Kathi rce(s) Supporting Document(s) Albumin [Mass/volume] in Serum or Plasma 3.8 [facility] ([facility]) Calcium [Mass/volume] in Serum or Plasma 9.3 [facility] ([facility]) Chloride [Moles/volume] in Serum or Plasma 107 [facility] ([facility]) Carbon dioxide, total [Moles/volume] in Serum or Plasma 32 [facility] ([facility]) Alanine aminotransferase [Enzymatic activity/volume] in Serum or Pl asma 90 [facility] ([facility]) Potassium [Moles/volume] in Serum or Plasma 4.2 [facility] ([facility]) Protein [Mass/volume] in Serum or Plasma 6.8 [facility] ([facility]) Alkaline phosphatase [Enzymatic activity/volume] in Serum or Plasma 9 0 [facility] ([facility]) Urea nitrogen [Mass/volume] in Serum or Plasma 19 [facility] ([facility]) Sodium 142 [facility] ([facility] Glucose 79 70-100 [facility] Aspartate aminotransferase [Enzymatic activity/volume] in Serum or Plasma 41 [facility] ([facility]) Creatinine For GFR 0.86 [facility] ([facility]) Procedure Social History Code Duration Value Status Description Data Source(s ) Smoking 04/19/2020 12:00:00 AM EST Patient is a former smoker completed Patient is a former smoker [facility] ([facility]) Alcohol intake 04/13/2020 12:00:00 AM EST Not Currently completed [facility] Smoking 04/13/2020 12:00:00 AM EST Former smoker completed Former smoker [facility] Vital Signs ID Date Data Source [id number] Name Value Range Interpretation Code Description Data Source(s) [place] body weight 115 [lb_av] 115 [lb_av] [facility] ([facility]) Oxygen saturation in Arterial blood by Pulse oximetry 98 % 98 % [facility] ([facility]) Body temperature 97.8 [degF] 97.8 [degF] [facility] ([facility]) Respiratory rate 18 /min 18 /min [facility] ( [facility]) Heart rate 57 /min 57 /min [facility] ([facility]) Body mass index (BMI) [Ratio] 23.1 kg/m2 23.1 k g/m2 [facility] ([facility]) Body weight 130.38 [lb_av] 130.38 [lb_av] DARLIN Thompson ([facility]) Body height 63 [in_i] 63 [in_i] [facility] ([facility]) 5'3" Diastolic blood pressure 84 mm[Hg] 84 mm[Hg] AS[facility] ([facility]) Systolic blood pressure 148 mm[Hg] 148 mm[Hg] M [facility] ([facility]) Diastolic blood pressure--sitting 86 mm[Hg] 86 mm[Hg] [facility] ([facility]) CBP, adult cuff/LA Systolic blood pressure--sitting 164 mm[Hg] 164 mm[Hg] [facility] ([facility]) CBP, adult cuff/LA Heart rate 51 /min 51 /min [facility] ([facility]) Body mass index (BMI) [Ratio] 23.0 kg/m2 23.0 k g/m2 [facility] ([facility]) Body height 63 [in_i] 63 [in_i] [facility] ([facility]) 5'3" Body weight 130.00 [lb_av] 130.00 [lb_av] DARLIN Thompson ([facility]) Oxygen saturation in Arterial blood by Pulse oximetry 97 % 97 % [facility] Respiratory rate 16 /min 16 /min [facility] Body temperature 36.67 Haley 36.67 Haley [facility] Heart rate 62 /min 62 /min [facility] Diastolic blood pressure 88 mm[Hg] 88 mm[Hg] [facility] Systolic blood pressure 150 mm[Hg] 150 mm[Hg] [facility] Body mass index (BMI) [Ratio] 23.03 kg/m2 23.03 kg/m2 [facility] Body weight 58.[address] [facility] Body height [address] [facility] [place] body weight 115 [lb_av] 115 [lb_av] DARLIN Thompson ([facility]) Oxygen saturation in Arterial blood by Pulse oximetry 98 % 98 % [facility] ([facility]) Body temperature 98.1 [degF] 98.1 [degF] [facility] ([facility]) Respiratory rate 18 /min 18 /min [facility] ( [facility]) Heart rate 63 /min 63 /min [facility] ([facility]) Body mass index (BMI) [Ratio] 23.4 kg/m2 23.4 k g/m2 [facility] ([facility]) Body weight 132.25 [lb_av] 132.25 [lb_av] [facility] ([facility]) Body height 63 [in_i] 63 [in_i] [facility] ([facility]) 5'3" Diastolic blood pressure 74 mm[Hg] 74 mm[Hg] [facility] ([facility]) Systolic blood pressure 124 mm[Hg] 124 mm[Hg] [facility] ([facility]) Diastolic blood pressure--sitting 78 mm[Hg] 78 mm[Hg] [facility] ([facility]) Systolic blood pressure--sitting 130 mm[Hg] 130 mm[Hg] [facility] ([facility]) Heart rate 67 /min 67 /min [facility] ([facility]) Body mass index (BMI) [Ratio] 24.3 kg/m2 24.3 k g/m2 [facility] ([facility]) Body height 63 [in_i] 63 [in_i] [facility] ([facility]) 5'3" Body weight 137.00 [lb_av] 137.00 [lb_av] [facility] ([facility]) [place] body weight 115 [lb_av] 115 [lb_av] [facility] ([facility]) Oxygen saturation in Arterial blood by Pulse oximetry 98 % 98 % [facility] ([facility]) Body temperature 98.8 [degF] 98.8 [degF] [facility] ([facility]) Respiratory rate 18 /min 18 /min [facility] ( [facility]) Heart rate 77 /min 77 /min [facility] ([facility]) Body mass index (BMI) [Ratio] 24.7 kg/m2 24.7 k g/m2 [facility] ([facility]) Body weight 139.50 [lb_av] 139.50 [lb_av] [facility] ([facility]) Body height 63 [in_i] 63 [in_i] [facility] ([facility]) 5'3" Diastolic blood pressure 74 mm[Hg] 74 mm[Hg] [facility] ([facility]) Systolic blood pressure 128 mm[Hg] 128 mm[Hg] M [facility] ([facility]) [place] body weight 115 [lb_av] 115 [lb_av] [facility] ([facility]) Oxygen saturation in Arterial blood by Pulse oximetry 99 % 99 % [facility] ([facility]) Body temperature 98.1 [degF] 98.1 [degF] [facility] ([facility]) Respiratory rate 18 /min 18 /min [facility] ( [facility]) Heart rate 70 /min 70 /min [facility] ([facility]) Body mass index (BMI) [Ratio] 24.4 kg/m2 24.4 k g/m2 [facility] ([facility]) Body weight 137.50 [lb_av] 137.50 [lb_av] [facility] T ([facility]) Body height 63 [in_i] 63 [in_i] [facility] ([facility]) 5'3" Diastolic blood pressure 78 mm[Hg] 78 mm[Hg] [facility] ([facility]) Systolic blood pressure 132 mm[Hg] 132 mm[Hg] M [facility] ([facility]) Oxygen saturation in Arterial blood by Pulse oximetry 100 % 100 % [facility] ([facility]) Body temperature 97.9 [degF] 97.9 [degF] [facility] ([facility]) Respiratory rate 18 /min 18 /min [facility] ( [facility]) Heart rate 53 /min 53 /min [facility] ([facility]) Body mass index (BMI) [Ratio] 24.2 kg/m2 24.2 k g/m2 [facility] ([facility]) Body weight 136.38 [lb_av] 136.38 [lb_av] [facility] ([facility]) Body height 63 [in_i] 63 [in_i] [facility] ([facility]) 5'3" Diastolic blood pressure 80 mm[Hg] 80 mm[Hg] [facility] ([facility]) Systolic blood pressure 136 mm[Hg] 136 mm[Hg] M [facility] ([facility]) Diastolic blood pressure--sitting 68 mm[Hg] 68 mm[Hg] [facility] ([facility]) adult cuff, Ra Systolic blood pressure--sitting 120 mm[Hg] 120 mm[Hg] [facility] ([facility]) adult cuff, Ra Heart rate 71 /min 71 /min [facility] ([facility]) Body mass index (BMI) [Ratio] 23.7 kg/m2 23.7 k g/m2 [facility] ([facility]) Body height 63 [in_i] 63 [in_i] [facility] ([facility]) 5'3" Body weight 134.00 [lb_av] 134.00 [lb_av] [facility] ([facility]) Oxygen saturation in Arterial blood by Pulse oximetry 99 % 99 % [facility] ([facility]) Body temperature 98.1 [degF] 98.1 [degF] [facility] ([facility]) Respiratory rate 18 /min 18 /min [facility] ( [facility]) Heart rate 49 /min 49 /min [facility] ([facility]) Body mass index (BMI) [Ratio] 23.8 kg/m2 23.8 k g/m2 [facility] ([facility]) Body weight 134.25 [lb_av] 134.25 [lb_av] [facility] ([facility]) Body height 63 [in_i] 63 [in_i] [facility] ([facility]) 5'3" Diastolic blood pressure 64 mm[Hg] 64 mm[Hg] [facility] ([facility]) Systolic blood pressure 132 mm[Hg] 132 mm[Hg] [facility] ([facility]) Patient Treatment Plan of Care Planned Activity Planned Date Details Description Data Source (s) Amlodipine 5 MG Oral Tablet 04/14/2020 12:00:[address] [facility] rivaroxaban 20 MG Oral Tablet 04/13/2020 12:00:[address] [facility] rivaroxaban [address] [facility] Diltiazem Hydrochloride [address] [facility] Atenolol 25 MG Oral Tablet S [facility]
[2020-05-26] MEDS ORDERED: PANTOPRAZOLE 40MG VIAL (C9113 PER 1) IV ONE (13:15)
[2020-05-26] MEDS ORDERED: GI COCKTAIL 50ML BTL(HYOSCYAMINE/MAALOX/LIDOCAINE VISCOUS)(1:3:1) PO ONE (13:15)
--- OUTSIDE RECORDS SUMMARY | 2020-05-26 13:25 | CCD ---
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 If you continue you may have access to information: Regarding HIV / AIDS; Provided by facilities licensed or operated by the [facility] Office of Mental Health; or Provided by the [facility] Office for People With Developmental Disabilities. If such information is present, then the following [facility] mandated warning applies: This information has [...] SULFA ANTIBIOTICS Sulfa Antibiotics Rash Low Active [facility] Low Propensity to adverse reactions LACTOSE INTOLERANCE (GI) [place] Intolerance (Gi) Active [facility] Propensity to adverse reactions GLUTEN MEAL Wheat gluten extract Active [facility] Propensity to adverse reactions GARLIC allyl sulfide A ctive [facility] Family History Family Member Name Family Member Gender Family Member Status Date o f Status Description Data Source(s) Unknown Male Problem [facility] ([facility]) Unknown Male Problem [facility] ([facility]) at age 38 Encounters Encounter Providers Location Date Indications Data Source(s ) Outpatient Attender: DAVE AMBROSE DO [facility] 04/21/2020 10:00:00 AM EST [facility] ([facility]) Outpatient Attender: HANNAH GALARZA MD Main Office 04/19/2020 11:00:00 AM EST [facility] ([facility]) Inpatient Attender: Ruchi Harris MDAdmitter: Ruchi douglas MD [email or web address] 04/11/2020 02:03:45 PM EST - 04/13/2020 01:50:00 PM EST [facility] Patient discharged. Outpatient Attender: Nico PATIÑO [facility] 04/07/2020 09:40:00 AM EST [facility] ([facility]) Outpatient Attender: Robina PATIÑO Main Office 12/03/2019 02:30:0 0 PM EDT [facility] ([facility]) [facility]: [facility] 10:30:00 AM EDT [facility] ([facility]) Outpatient Attender: DAVE AMBROSE [facility] 06/05/2019 10:00:00 AM EST [facility] ([facility]) Outpatient Attender: DAVE AMBROSE [facility] 05/08/2019 12:20:00 PM EST [facility] ([facility]) Outpatient Attender: Robina PATIÑO Main Office 04/29/2019 12:00:0 0 PM EST [facility] ([facility]) [facility] 12:30:00 PM EST [facility] ([facility]) Medications Medication Brand Name Start Date Product Form Dose Route Admi nistrative Instructions Pharmacy Instructions Status Indications Reaction Description Data Source(s) Bisoprolol Fumarate 5 MG Oral Tablet Bisoprolol Fumarate 12:00:00 AM EST ORAL active [facility] ([facility]) 5 mg 05/05/2020 12:00:00 AM EST tablet 60 TAKE ONE TABLET BY MOUTH TWICE A DAY FOR RESTING HR>90 BPM TAKE ONE TABLET BY MOUTH TWICE A DAY FOR RESTING HR>90 BPM SOLD: 05/06/2020 [facility] Atenolol 25 MG Oral Tablet Atenolol 05/02/2020 12:00:00 AM EST ORAL completed [facility] ([facility]) Atenolol 25 MG Oral Tablet Atenolol 04/27/2020 12:00:00 AM EST ORAL completed [facility] ([facility]) 80 mg 04/20/2020 12:00:00 AM EST tablet 90 TAKE ONE TABLET BY MOUTH AT BEDTIME TAKE ONE TABLET BY MOUTH AT BEDTIME SOLD: 04/21/2020 [facility] Atenolol 25 MG Oral Tablet ATENOLOL 04/20/2020 12:00:00 AM EST tablet 180 TAKE ONE TABLET BY MOUTH TWICE A DAY TAKE ONE TABLET BY MOUTH TWICE A DAY SOLD: 04/21/2020 [facility] valsartan 80 MG Oral Tablet Valsartan 04/19/2020 12:00:00 AM EST ORAL active [facility] ([facility]) Flecainide Acetate 50 MG Oral Tablet Flecainide Acetate 03/2021 12:00:00 AM EST ORAL active [facility] ([facility]) Atenolol 25 MG Oral Tablet Atenolol 04/19/2020 12:00:00 AM EST ORAL completed [facility] ([facility]) 50 mg 04/15/2020 12:00:00 AM EST tablet 60 TAKE ONE TABLET BY MOUTH TWICE A DAY TAKE ONE TABLET BY MOUTH TWICE A DAY SOLD: 04/15/2020 [facility] [employer] Atenolol 50 MG Oral Tablet ATENOLOL 04/15/2020 12:00:00 AM EST tablet 30 TAKE ONE TABLET BY MOUTH EVERY DAY TAKE ONE TABLET BY MOUTH EVERY DAY SOLD: 04/15/2020 [facility] 750 mg/5 mL 04/15/2020 12:00:00 AM EST suspension 50 TAKE ONE TEASPOONFUL (5ML) BY MOUTH TWICE A DAY WITH FOOD , DO NOT TAKE COQ10 TAKE ONE TEASPOONFUL (5ML) BY MOUTH TWICE A DAY WITH FOOD , DO NOT TAKE COQ10 SOLD: 04/15/2020 [facility] Flecainide Acetate 50 MG Oral Tablet Flecainide Acetate 10/2020 12:00:00 AM EST ORAL completed [facility] ([facility]) Atenolol 50 MG Oral Tablet Atenolol 04/14/2020 12:00:00 AM EST ORAL completed [facility] ([facility]) Mirtazapine 15 MG Oral Tablet Mirtazapine 04/14/2020 12:00:00 AM EST completed [facility] ([facility]) rivaroxaban 20 MG Oral Tablet [Xarelto] Xarelto 04/14/2020 12:00:0 0 AM EST ORAL active [facility] ([facility]) Amlodipine 5 MG Oral Tablet amLODIPine (NORVASC) 5 MG tablet amLODIPine (NORVASC) 5 MG tablet 04/14/2020 12:00:00 AM EST 5 mg Oral active Take 1 tablet (5 mg total) by mouth daily [facility] 5 mg 04/13/2020 12:00:00 AM EST [...] mg total) by mouth daily with dinner [facility] 2 ML Midazolam 1 MG/ML Injection midazolam (VERSED) in jection midazolam (VERSED) injection 04/12/2020 02:11:53 PM EST active As needed, Starting Sat04/12/20 at 1411, Intra-Procedure [facility] Medication administered onsite fentaNYL Citrate (PF) (SUBLIMAZE) injection 4130-8815-77 04/12/2020 02:11:40 PM EST active As neede d, Starting Sat04/12/20 at 1411, Intra-Procedure [facility] Medication administered onsite Diltiazem Hydrochloride 60 MG Oral Tablet diltiazem (C ARDIZEM) tablet 60 mg diltiazem (CARDIZEM) tablet 60 mg 04/11/2020 06:00:00 PM EST 60 mg Oral active 60 mg, Oral, Every 6 hours (scheduled), First dose on Sat04/11/20 at 1800 [facility] Medication administered onsite rivaroxaban 20 MG Oral Tablet rivaroxaban (XARELTO) ta blet 20 mg rivaroxaban (XARELTO) tablet 20 mg 04/11/2020 06:00:00 PM EST 20 mg Oral active 20 mg, Oral, Daily with dinner, First dose on Sat04/11/20 at 1800 [facility] Medication administered onsite ondansetron (ZOFRAN) injection 4 mg [id number] 04/11/2020 03:32:1 5 PM EST 4 mg Intravenous active 4 mg, In travenous, Every 4 hours PRN, nausea, vomiting, Starting Sat04/11/20 at 1532 [facility] Medication administered onsite Acetaminophen 325 MG Oral Tablet acetaminophen (TYLENO L) 325 MG tablet 650 mg acetaminophen (TYLENOL) 325 MG tablet 650 mg 04/11/2020 03:32:15 PM EST 650 mg Oral active 650 mg, Or al, Every 4 hours PRN, mild pain (1-3), headaches, Starting Sat04/11/20 at 1532
"Maximum dose of acetaminophen is 4,000 mg from all sources in 24 hours."
[facility] Medication administered onsite 60 mg 04/11/2020 [...] AM EST ORAL completed [facility] ([facility]) 30 mg 04/04/2020 12:00:00 AM EST tablet 120 TAKE ONE TABLET BY MOUTH FOUR TIMES A DAY TAKE ONE TABLET BY MOUTH FOUR TIMES A DAY SOLD: 04/04/2020 [facility] Diltiazem Hydrochloride 30 MG Oral Tablet Diltiazem HCL 04/04/2020 12:00:00 AM EST ORAL completed [facility] ([facility]) 24 HR Diltiazem Hydrochloride 120 MG [...] EST ORAL completed [facility] ([facility]) 24 HR Diltiazem Hydrochloride 300 MG Extended Release Oral Capsule Diltiazem HCL ER Beads 03/31/2020 12:00:00 AM EST ORAL completed [facility] ([facility]) 20 mg 10/12/2019 12:00:00 AM EDT [...] Doxycycline Monohydrate 100 MG Oral Capsule Doxycycline [place] hydrate 04/28/2019 12:00:00 AM EST ORAL active M [facility]ENT ([facility]) Atenolol 25 MG Oral Tablet Atenolol [...] by mouth 4 (four) times a day [facility] rivaroxaban 15 MG Oral Tablet rivaroxaban (XARELTO) 15 MG TABS rivaroxaban (XARELTO) 15 MG TABS 15 mg Oral aborted [place] e 15 mg by mouth daily [facility] Atenolol 25 MG Oral Tablet atenolol (TENORMIN) 25 MG t ablet atenolol (TENORMIN) 25 MG tablet 25 mg Oral aborted Take 25 mg by mouth daily [facility] Insurance Providers Payer name Policy type / Coverage type Policy ID Covered libertarian ID Covered libertarian's relationship to saldaña Policy Saldaña Plan Information R [facility] [id number] SP [id number] MEDICARE [id number] SP [id number] [facility] [id number] SP [id number] R O [id number] S [id number] MEDICARE C [id number] S [id number] MEDICARE [id number] MEDICARE [id number] Regla [id number] r Commercial [id number] Self [id number] UMR [facility] [id number] SP [id number] Umr Commercial [id number] Self [id number] Umr Medigap Part B [id number] Self [id number] [employer] Ppo Commercial [id number] Self [id number] Umr Medigap Part B [id number] Self [id number] Umr Commercial [id number] Self [id number] Umr Commercial [id number] Self [id number] Umr Commercial [id number] Self [id number] Umr Commercial [id number] Self [id number] Umr Commercial [id number] Self [id number] Umr Commercial [id number] Self [id number] Umr Commercial [id number] Self [id number] Umr Commercial [id number] Self [id number] Umr Commercial [id number] Self [id number] Umr Commercial [id number] Self [id number] [employer] [id number] S [id number] Umr Commercial [id number] Self [id number] Umr Medigap Part B [id number] Self [id number] Umr Medigap Part B [id number] Self [id number] Umr Commercial [id number] Self [id number] [id number] Umr Commercial [id number] Self [id number] Umr Commercial [id number] Self [id number] Umr Commercial [id number] Self [id number] [id number] Umr Commercial [id number] Self [id number] Umr Commercial [id number] Self [id number] Umr Commercial [id number] Self [id number] [id number] Umr Commercial [id number] Self [id number] Umr Commercial [id number] Self [id number] [id number] Umr Commercial [id number] Self [id number] Umr Medigap Part B [id number] Self [id number] [employer] [id number] SP [id number] [employer] PHCS Ppo Commercial [id number] Self [id number] [employer] COMM SELF [id number] S [id number] Problems, Conditions, and Diagnoses Code Display Name Description Problem Type Effective Dates Data Source(s) 936559910 Paroxysmal atrial fibrillation Paroxysmal atrial fibri llation Problem 04/19/2020 12:00:00 AM EST [facility] ([facility]) [id number] Essential hypertension Essential hypertension Problem 04/19/2020 12:00:00 AM EST [facility] ([facility]) I48.3 Typical atrial flutter Typical atrial flutter [id number] 04/11/2020 12:00:00 AM EST [facility] I48.92 Atrial flutter Atrial flutter [id number] 04/11/2020 12:00: 00 AM EST [facility] I48.3 Typical atrial flutter Typical atrial flutter Diagnosi s 04/11/2020 02:03:45 PM EST [facility] I48.92 Unspecified atrial flutter Unspecified atrial flutter Diagnosis 04/11/2020 02:03:45 PM EST [facility] Surgeries/Procedures Procedure Description Date Indications Data Source(s) ECG ROUTINE ECG W/LEAST 12 LDS W/I&R 04/19/2020 12:00: 00 AM EST [facility] ([facility]) Arterial Pressure Waveform Analysis For Assessment Of Centra l Art 04/19/2020 12:00:00 AM EST [facility] Dis[facility]) BLOOD COUNT COMPLETE AUTOMATED CBC Routine 04/13/2020 4:23 A M EST 04/13/2020 09:23:00 AM EST [facility] BASIC METABOLIC PANEL CALCIUM TOTAL BASIC METABOLIC PANEL Routi ne 04/13/2020 4:23 AM EST 04/13/2020 09:23:00 AM [facility] EP STUDY EP STUDY Routine 04/12/2020 2:29 PM EST Typical atrial flutter 04/12/2020 07:29:52 PM EST Typical atrial flutter [facility] Typical atrial flutter ECHO TTHRC R-T 2D W/WOM-MODE COMPL SPEC&COLR DOP ECHOCARDIO GRAM TRANSTHORACIC Routine 04/12/2020 7:30 AM EST 04/12/2020 12:30:00 PM EST [facility] ECG ROUTINE ECG W/LEAST 12 LDS TRCG ONLY W/O I&R ECG 12-LEAD Routine 04/12/2020 6:35 AM EST 04/12/2020 11:35:16 AM EST [facility] BLOOD COUNT COMPLETE AUTOMATED CBC Routine 04/12/2020 5:19 A M EST 04/12/2020 10:19:00 AM EST [facility] BASIC METABOLIC PANEL CALCIUM TOTAL BASIC METABOLIC PANEL Routi ne 04/12/2020 5:19 AM EST 04/12/2020 10:19:00 AM EST [facility] THROMBOPLASTIN TIME PARTIAL PLASMA/WHOLE BLOOD APTT Routine 04/11/2020 2:55 PM EST 04/11/2020 07:55:00 PM EST [facility] PROTHROMBIN TIME PROTIME-INR Routine 04/11/2020 2:55 PM EST 04/11/2020 07:55:00 PM EST [facility] BLOOD COUNT COMPLETE AUTOMATED CBC Routine 04/11/2020 2:55 P M EST 04/11/2020 07:55:00 PM EST [facility] COMPREHENSIVE METABOLIC PANEL COMPREHENSIVE METABOLIC PANEL Rou elder 04/11/2020 2:55 PM EST 04/11/2020 07:55:00 PM EST [facility] ECG ROUTINE ECG W/LEAST 12 LDS W/I&R ECG 12-LEAD Routine 04/11/2020 2:01 PM EST 04/11/2020 07:01:27 PM EST [facility] Electrocardiogram Complete 04/07/2020 12:00:00 AM EST [facility] ([facility]) ECG ROUTINE ECG W/LEAST 12 LDS W/I&R 12/03/2019 12:00: 00 AM EDT [facility] ([facility]) Omt 7-8 Body Regions 06/24/2019 12:00:00 AM EDT [facility] ([facility]) Omt 7-8 Body Regions 06/05/2019 12:00:00 AM EST [facility] ([facility]) Omt 7-8 Body Regions 05/08/2019 12:00:00 AM EST [facility] ([facility]) ECG ROUTINE ECG W/LEAST 12 LDS W/I&R 04/29/2019 12:00: 00 AM EST [facility] ([facility]) Omt 7-8 Body Regions 04/07/2019 12:00:00 AM EST [facility] ([facility]) Results ID Date Data Source [id number] 05/22/2020 04:48:00 PM EST [facility] ([facility]) Name Value Range Interpretation Code Description Data Kathi rce(s) Supporting Document(s) Red Blood Count 4.74 10 4.00-5.40 Normal (applies to non-numeric results) [facility] ([facility]) White Blood Count 7.6 10 4.0-10.0 Normal (applies to non-numeri c results) [facility] ([facility]) Hematocrit 42.5 % 36.0-47.0 Normal (applies to non-numeric resul ts) [facility] ([facility]) Hemoglobin 14.7 g/dL 12.0-15.5 Normal (applies to non-numeric resul ts) [facility] ([facility]) Mean Corpuscular HGB Conc 34.6 g/dL 32.0-36.5 Normal (applies to non-numeric results) [facility] Mean Corpuscular Volume 89.7 fl 80.0-96.0 Normal ( applies to non-numeric results) [facility] ([facility]) Mean Corpuscular Hemoglobin 31.0 pg 27.0-33.0 Norm al (applies to non-numeric results) [facility] ([facility]) Red Cell Distribution Width 12.0 % 11.5-14.5 Norm al (applies to non-numeric results) [facility] ([facility]) Platelet Count, Automated 249 10 150-450 Normal (applies to non-numeric results) [facility] ([facility]) [place] % 9.6 % 2.0-8.0 Above high normal [facility] ([facility]) Neutrophils % 63.4 % 36.0-66.0 Normal (applies to non-numeric re sults) [facility] ([facility]) Lymph % 25.7 % 24.0-44.0 Normal (applies to non-numeric resul ts) [facility] ([facility]) Baso % 0.4 % 0.0-1.0 Normal (applies to non-numeric resul ts) [facility] ([facility]) Eos % 0.5 % 0.0-3.0 Normal (applies to non-numeric resul ts) [facility] ([facility]) Immature Granulocyte % 0.4 % 0-3.0 Normal (applies to non-n umeric results) [facility] ([facility]) Neutrophils # 4.8 10 1.5-8.5 Normal (applies to non-numeric re sults) [facility] ([facility]) Nucleated Red Blood Cell % 0.0 % 0-0 Normal (applies to n on-numeric results) [facility] ([facility]) [place] # 0.7 10 0.0-0.8 Normal (applies to non-numeric resul ts) [facility] ([facility]) Lymph # 2.0 10 1.5-5.0 Normal (applies to non-numeric resul ts) [facility] ([facility]) Eos # 0.0 10 0.0-0.5 Normal (applies to non-numeric resul ts) [facility] ([facility]) Baso # 0.0 10 0.0-0.2 Normal (applies to non-numeric resul ts) [facility] ([facility]) ID Date Data Source [id number] 05/22/2020 04:47:00 PM EST [facility] ([facility]) Name Value Range Interpretation Code Description Data Kathi rce(s) Supporting Document(s) Lipase [Enzymatic activity/volume] in Serum or Plasma 371 U/L 73-393 Normal (applies to non-numeric results) [facility] ([facility]) ID Date Data Source [id number] 05/22/2020 04:47:00 PM EST [facility] ([facility]) Name Value Range Interpretation Code Description Data Kathi rce(s) Supporting Document(s) Blood Urea Nitrogen 21 mg/dL 7-18 Above high normal [facility] ([facility]) Glucose, Fasting 77 mg/dL 70-100 Normal (applies to non-numeric results) [facility]) Creatinine For GFR 0.86 mg/dL 0.55-1.30 Normal (applies to non -numeric results) [facility] ([facility]) Sodium Level 142 meq/L 136-145 Normal (applies to non-numeric res ults) [facility] ([facility]) Glomerular Filtration Rate Laboratory test result Normal (applies to non- numeric results) [facility] ([facility]) <content>Units are mL/min/1.73 m2</content>
<content></content>
<content>Chronic Kidney Disease Staging per NKF:</content>
<content></content>
<content>Stage I & II GFR >=60 Normal to Mildly Decreased</content>
<content>Stage III GFR 30-59 Moderately Decreased</content>
<content>Stage IV GFR 15-29 Severely Decreased</content>
<content>Stage V GFR <15 Very Little GFR Left</content>
<content>ESRD GFR <15 on MEDICARE SPECIALIST</content>
<content></content> Chloride Level 107 meq/L 98-107 Normal (applies to non-numeric r esults) [facility] ([facility]) Potassium Serum 4.0 meq/L 3.5-5.1 Normal (applies to non-numeric results) [facility] ([facility]) Anion Gap 8 meq/L 8-16 Normal (applies to non-numeric resul ts) [facility] ([facility]) Carbon Dioxide Level 27 meq/L 21-32 Normal (applies to non-num pop results) [facility] ([facility]) Calcium Level 9.2 mg/dL 8.8-10.2 Normal (applies to non-numeric re sults) [facility] ([facility]) ID Date Data Source [id number] 05/22/2020 04:47:00 PM EST [facility] Name Value Range Interpretation Code Description Data Kathi rce(s) Supporting Document(s) Alt/SGPT 49 U/L 12-78 Normal (applies to non-numeric resul ts) [facility] ([facility]) Ast/Sgot 33 U/L 7-37 Normal (applies to non-numeric resul ts) [facility] ([facility]) Alkaline Phosphatase 101 U/L 45-117 Normal (applies to non-num pop results) [facility] ([facility]) Bilirubin,Total 0.4 mg/dL 0.2-1.0 Normal (applies to non-numeric results) [facility] ([facility]) Bilirubin,Direct 0.1 mg/dL 0.0-0.2 Normal (applies to non-numeric results) [facility] ([facility]) Albumin/Globulin Ratio 1.3 1.2-2.2 Normal (applies to non-n umeric results) [facility] ([facility]) Albumin 3.7 GM/DL 3.2-5.2 Normal (applies to non-numeric resul ts) [facility] ([facility]) Total Protein 6.5 GM/DL 6.4-8.2 Normal (applies to non-numeric re sults) [facility] ([facility]) ID Date Data Source [id number] 05/22/2020 04:47:00 PM EST [facility] ([facility]) Name Value Range Interpretation Code Description Data Kathi rce(s) Supporting Document(s) CPK Creatine Phosphokinase 58 U/L 26-192 Queenie l (applies to non-numeric results) [facility] ([facility]) CK-MB Value Mass 1.2 ng/mL Normal (applies to non-numeric results) [facility] ([facility]) MB/CK Relative Index 2.07 Normal (applies to non-num pop results) [facility] ([facility]) <content>DIAGNOSIS CRITERIA</content>
<content>MMB ng/ml Relative Index (RI)</content>
<content>NON-AMI < or = 5 N/A</content>
<content>NGUYEN ZONE > 5 < or = 4</content>
<content>AMI > 5 > 4</content>
<content></content> Troponin I Laboratory test result Normal (applies to non-n umeric results) [facility] ([facility]) <content>Troponin I Reference Interval f or Siemens [place] LOCI:</content>
<content></content>
<content>99th Percentile= 0.00-0.045 ng/ml</content>
<content></content>
<content>Risk Stratification:</content>
<content><= 0.10 ng/ml Decreased Risk for Adverse Clinical</content>
<content>Events.</content>
<content>0.10-1.50 ng/ml Increased Risk for Adverse Clinical</content>
<content>Events. Evaluation of additional</content>
<content>criterion and/or repeat testing in 2-6</content>
<content>hours is suggested to rule out myocardial</content>
<content>damage.</content>
<content>>= 1.50 ng/ml Indicative of Myocardial Injury.</content>
<content></content> ID Date Data Source [id number] 04/14/2020 08:40:00 PM EST [facility] ([facility]) Name Value Range Interpretation Code Description Data Kathi rce(s) Supporting Document(s) Laboratory test finding (navigational concept) 0.38 ng/mL 0 .00-0.08 Above high normal [facility] ([facility]) ID Date Data Source [id number] 04/14/2020 08:34:00 PM EST [facility] ([facility]) Name Value Range Interpretation Code Description Data Kathi rce(s) Supporting Document(s) Laboratory test finding (navigational concept) 144 mg/dL 7 0-105 Above high normal [facility] ([facility]) Laboratory test finding (navigational concept) 48.0 % 3 8.0-51.0 Normal (applies to non-numeric results) [facility] ([facility]) Laboratory test finding (navigational concept) 3.8 meq/L 3 .5-5.1 Normal (applies to non-numeric results) [facility] ([facility]) Laboratory test finding (navigational concept) 138 meq/L 1 36-145 Normal (applies to non-numeric results) [facility] ([facility]) Laboratory test finding (navigational concept) 4.4 mg/dL 4 .5-5.3 Below low normal [facility] [facility] Laboratory test finding (navigational concept) 104 meq/L 9 8-109 Normal (applies to non-numeric results) [facility] ([facility]) Laboratory test finding (navigational concept) 25.0 MM/L 2 3.0-27.0 Normal (applies to non-numeric results) [facility] ([facility]) Laboratory test finding (navigational concept) 23 mg/dL 8 -26 Normal (applies to non-numeric results) [facility] ([facility]) Laboratory test finding (navigational concept) 0.7 mg/dL 0 .6-1.3 Normal (applies to non-numeric results) [facility] ID Date Data Source [id number] 04/14/2020 08:30:00 PM EST [facility] ([facility]) Name Value Range Interpretation Code Description Data Kathi rce(s) Supporting Document(s) White Blood Count 9.3 10 4.0-10.0 Normal (applies to non-numeri c results) [facility] ([facility]) Hemoglobin 17.0 g/dL 12.0-15.5 Above high normal [facility] ([facility]) Red Blood Count 5.41 10 4.00-5.40 Above high normal [facility] ([facility]) Mean Corpuscular Hemoglobin 31.4 pg 27.0-33.0 Norm al (applies to non-numeric results) [facility] ([facility]) Hematocrit 49.0 % 36.0-47.0 Above high normal [facility] Mean Corpuscular Volume 90.6 fl 80.0-96.0 Normal ( applies to non-numeric results) [facility] ([facility]) Red Cell Distribution Width 11.8 % 11.5-14.5 Norm al (applies to non-numeric results) [facility] ([facility]) Mean Corpuscular HGB Conc 34.7 g/dL 32.0-36.5 Normal (applies to non-numeric results) [facility] ([facility]) Platelet Count, Automated 236 10 150-450 Normal (applies to non-numeric results) [facility] ([facility]) [place] % 9.3 % 0.0-5.0 Above high normal [facility] ([facility]) Lymph % 20.4 % 24.0-44.0 Below low normal [facility] ( [facility]) Neutrophils % 68.7 % 36.0-66.0 Above high normal [facility] ([facility]) Baso % 0.3 % 0.0-1.0 Normal (applies to non-numeric resul ts) [facility] ([facility]) Immature Granulocyte % 0.4 % 0-3.0 Normal (applies to non-n umeric results) [facility] ([facility]) Eos % 0.9 % 0.0-3.0 Normal (applies to non-numeric resul ts) [facility] ([facility]) Neutrophils # 6.4 10 1.5-8.5 Normal (applies to non-numeric re sults) [facility] ([facility]) Nucleated Red Blood Cell % 0.0 % 0-0 Normal (applies to n on-numeric results) [facility] ([facility]) Lymph # 1.9 10 1.5-5.0 Normal (applies to non-numeric resul ts) [facility] ([facility]) [place] # 0.9 10 0.0-0.8 Above high normal [facility] ([facility]) Eos # 0.1 10 0.0-0.5 Normal (applies to non-numeric resul ts) [facility] ([facility]) Baso # 0.0 10 0.0-0.2 Normal (applies to non-numeric resul ts) [facility] ([facility]) ID Date Data Source [id number] 04/14/2020 03:26:00 PM EST [facility] ([facility]) Name Value Range Interpretation Code Description [...] by Den [place]árdenas Laboratory test result [facility] ([facility] Platelets [#/volume] in Blood by Automated count 236 [facility] ([facility]) Erythrocyte distribution width [Ratio] by Automated count 11.8 [facility] ([facility]) Lymphocytes/100 leukocytes in Body fluid by Manual count 20.4 [facility] ([facility]) Monocytes 9.3 [facility] Band form neutrophils/100 leukocytes in Body fluid by Manual count Laboratory test result [facility] ([facility]) Basophils/100 leukocytes in Blood [...] [facility] [place]) ID Date Data Source [id number] 04/14/2020 03:26:00 PM EST [facility] Name Value Range Interpretation Code Description Data Kathi rce(s) Supporting Document(s) Red Blood Count 5.41 4.70-6.20 [facility] Platelets 236 130-400 [facility] White Blood Count 9.3 4.3-10.9 [facility] ([facility]) Hemoglobin 17.0 13.0-17.0 [facility] ([facility]) Hematocrit 49.0 39.0-50.0 [facility] ([facility]) ID Date Data Source [id number] 04/13/2020 12:19:30 PM EST [facility] NT INFORMATIONPatient MRN Name Date of Age Gend*PT [id number] Mercy Arreola 1955 64 years F SDCXPT Location Admission Date/Time Visit ID Attending Provider04/11/20 1403 --- Zhanna Harris MD([id number]) EPI ID CSN Admitting Provider [id number] Zhanna Harris MD([id number]) Attestation signed by Zhanna Harris MD at 04/13/2020 12:19 PMATTENDING ADDENDUM:I saw and examined Ms. Arreola today, and agree with the exam, assessment,and plan of damon Benitez, noted above.In brief, Ms. Arreola presents with typical with successful RFA.I agree with the plan as noted above.Beto Harris M.D., [facility], RSClinical Cardiac Electrophysiology04/13/2020 12:18 PM --Cardiology Discharge Summary Mercy ArreolaMRN: [id number] date: 04/11/2020ttending Physician: Zhanna Harris, [facility] Diagnosis: Typical atrial flutterSecondary Diagnoses: Principal Problem: [...] history of tobacco useThe patient presented to [facility]/2019 for palpitations witha heart rate [...] VITAMIN C Take 500 mg by mouth krsrvO-Kctoxur-S Tabs Take 1 tablet by mouth dailydicyclomine [...] Get Your MedicationsThese medications were sent to [facility] - [place], [place] - [address] [place] [address] amLODIPine 5 MG tablet rivaroxaban 20 MG [...] Value Range Interpretation Code Description Data [facility](s) Supporting Document(s) ID Date Data Source [id number] 04/13/2020 06:50:43 AM EST [facility] [place] [facility] Name Value Range Interpretation Code Description Data [facility](s) Supporting Document(s) SODIUM 139 mmol/L (136-145) [facility] [place] [facility] POTASSIUM 4.3 mmol/L (3.6-5.2) [facility] [place] [facility] CHLORIDE 105 mmol/L (100-108) [facility] [place] [facility] CO2 25 mmol/L (22-31) [facility] [place] [facility] ANION GAP 9 mmol/L (7-16) [facility] UREA NITROGEN 25 mg/dL (7-24) H [facility] [place] [facility] CREATININE 0.80 mg/dL (0.60-1.00) [facility] [place] [facility] BUN/CREAT RATIO 31.3 RATIO (10.0-20.0) [facility] GLUCOSE 71 mg/dL (70-99) [facility] [place] [facility] CALCIUM 8.9 mg/dL (8.4-10.2) [facility] [place] [facility] GFR >60 ml/min/1.73m2 (>59) [facility] [place] [facility] GFR ( AMER) >60 ml/min/1.73m2 (>59) [facility] [facility] GFR INTERPRETATION [facility] --NORMAL KIDNEY FUNCTION OR MILD DISEASE - GFR >OR= 60CHRONIC KIDNEY DISEASE - GFR 15 - 59RENAL FAILURE - GFR <15 Est. GFR calculation based on the MDRDstudy equation, which assumes a steadystate for creatinine. Est. GFR should notbe used for medication dosing. ID Date Data Source [id number] 04/13/2020 04:36:41 AM EST [facility] [place] [facility] Name Value Range Interpretation Code Description Data Kathi rce(s) Supporting Document(s) WBC 8.8 10*3/uL (4.1-11.0) [facility] [place] [facility] [place] RBC 5.24 10*6/uL (4.00-5.40) [facility] [place] [facility] HGB 17.1 g/dL (12.0-16.0) H [facility] [place] [facility] HCT 49.1 % (36.0-47.0) H [facility] [place] [facility] PERFORMED AT [address] [place] [address] N [place] [address] MCV 93.7 fL (80.0-95.0) [facility] MCH 32.6 pg (27.0-32.0) H [facility] [place] [facility] MCHC 34.8 g/dL (32.0-36.0) [facility] RDW 12.4 % (10.5-14.5) [facility] [facility] PLT 234 10*3/uL (150-450) [facility] [place] [facility] MPV 7.6 fL (7.1-10.7) [facility] [place] [facility] ID Date Data Source [id number] 04/12/2020 02:52:26 PM EST [facility] Name Value Range Interpretation Code Description Data Kathi rce(s) Supporting Document(s) &PDF [facility] VMOVYf3iErTWBiVm98/EQOepZCUza3MkAOxjFVz1MZzqNDIbS5MywEugHHVWVxcIB0yXXOcIJe6aFBKa waW [file] [facility]+a2ETpmCkl4+3aOym+Q38GOfcIgofdw2b6SECd4ixJjkSMjTV4Ir85816Kwd0k3G+0FeX5NZ53Z [file] WBY2OKXu== ID Date Data Source [id number] 04/12/2020 10:05:42 AM EST [facility] Name Value Range Interpretation Code Description Data Kathi rce(s) Supporting Document(s) &PDF [facility] ZLUXIy5bDtBABeNe90/WBXueLRNrw8OaQMwxLBf6HGfjUIKxS8QqiRwuRPSTHbuZB9lDBPbPAf7uBOSq waW [file] hospital [facility]+uOguNxx3fajAFLA5IybPQ70fp39Xl2rdUP9XRa [file] AgICAgICAgICAgICAgICAgICAgICAgICAgICAgICAgICAgICAgICAgICAgICAgICAgICAgICAgICAgIC AgICAgICAgICAgICAgICANCiAgICAgICAgICAgICAg ICAgICAgICAgICAgICAgICAgICAgICAgICAgICAgICAgICAgICAgICAgICAgICAgICAgICAgICAgICAg ICAgICAgICAgICAgICAgICAgICAgICAgICANCiAgICAgICAgICAgICAgICAgICAgICAgICAgICAgICAg ICAgICAgICAgICAgICAgICAgICAgICAgICAgICAgIC AgICAgICAgICAgICAgICAgICAgICAgICAgICAgICAgICAgICANCiAgICAgICAgICAgICAgICAgICAgIC AgICAgICAgICAgICAgICAgICAgICAgICAgICAgICAgICAgICAgICAgICAgICAgICAgICAgICAgICAgIC AgICAgICAgICAgICAgICAgICANCiAgICAgICAgICAg ICAgICAgICAgICAgICAgICAgICAgICAgICAgICAgICAgICAgICAgICAgICAgICAgICAgICAgICAgICAg ICAgICAgICAgICAgICAgICAgICAgICAgICAgICANCiAgICAgICAgICAgICAgICAgICAgICAgICAgICAg ICAgICAgICAgICAgICAgICAgICAgICAgICAgICAgIC AgICAgICAgICAgICAgICAgICAgICAgICAgICAgICAgICAgICAgICANCiAgICAgICAgICAgICAgICAgIC AgICAgICAgICAgICAgICAgICAgICAgICAgICAgICAgICAgICAgICAgICAgICAgICAgICAgICAgICAgIC AgICAgICAgICAgICAgICAgICAgICANCiAgICAgICAg ICAgICAgICAgICAgICAgICAgICAgICAgICAgICAgICAgICAgICAgICAgICAgICAgICAgICAgICAgICAg ICAgICAgICAgICAgICAgICAgICAgICAgICAgICAgICANCiAgICAgICAgICAgICAgICAgICAgICAgICAg ICAgICAgICAgICAgICAgICAgICAgICAgICAgICAgIC AgICAgICAgICAgICAgICAgICAgICAgICAgICAgICAgICAgICAgICAgICANCiAgICAgICAgICAgICAgIC AgICAgICAgICAgICAgICAgICAgICAgICAgICAgICAgICAgICAgICAgICAgICAgICAgICAgICAgICAgIC AgICAgICAgICAgICAgICAgICAgICAgICANCjw/eHBh O3wtuWYrysO4I7gdMx0ELx0CWX7vk7JdOXMcNXzfcvDbJtsUWnUdTUGuMvdSJzz6NOhiFT4BpEQyZ3Hd C9FtCBxmWK8JKJZkQVPgrXBkNRRoLDNyHlP6HLIsOJluJP2XaQBtHFxmPQHeZTXcKqIbRUCyARFaSSEa LM7LPUWfT747tgTdDd0CNf2UBeYfGI1ngv8LFrtyFF QdCoeQZrb2GLrcNF0DkFFsG5OzoXJln7nBAvRdH6LCSYR7IVYjCz4VLMEeCyWfLUFtCInmMV8oZHJbYG ZIhQugkcS8GD9SFU7aacJePF6VLtXbFj0cGz3XGoTxN3QdW8WrQUDwLKHILLyaIM6TQYEpFJQ3UBTzAn YuXYCMLtXbS56bON1VT4Jlp33iTtI3XSHoRmJzPWqs AG22iEqiytVcoDRoxRczOF8ISs1+ETjlzrEtGbaAAeggUQUXEgJjMalZUoZpHIRcNBFsZAPsFgB7QkPk Qc2YOFVeWVEvLXQqQxDvOCUtZGMvELvaABIrAXC8HEO5SDQwDIWtAW0JWkTxPNImVdd2NaFoSQTeLAXr iy7EDABcGYSyTAD5RPOsVUOuYIPxRYajQYNkRCVsQC OdFRLiQCApFL1QMbFdNZTvAIYdGokfJHQzBOBqci4MYZAaCVXsQfT7RqRhWYAfBRCeAOfjVNFrTGI7Ck n7ZDTjUWZiQL0DThRgRUGvHBk5EddxNGXzQAAmtn7LEEPuXXJdJyi8YxHqOXLzQFXfVMczJJMiFGN9VQ OsNFFiKITrYG7CFxSoXJKgYXt7TMleWEUhFGIzot9K UTOvRHGdKBH1PgOdASUtHYWnWSsxYUPvNLJfMQCgYGMrVLRoWW9TKzGzNQUkVIVsNTPhYHTbJCKtoj7B WKIuCDKfGBAcDIVqODTwKPPpHWfcOAQzNHY5Knf7WJBaIAIiXC5DZkLhEXRlFTF8LRCmZHDyHKQstx9P SZYxFFRcUZnjAtGqYCFvGVGjWMouDLUaWQS2IZW1KP IgYLJvVC8MUgKfIJRlYMDyCVFeGFRxEBWtav4EFOBaFQJzZcM9YNSaBRAuCCRjBEstTIChZQD1LUQgPB JpAGZpTU1LUhVwGRIyEPz0UFRgLJMdFHJtbn2XXXZuZXItCaM5GJLdPKRcLEWzEQhlQKTvGCT3UZX1WH OlVQFzWA9UVdQyMYVvSbk3JRYsTNGdWAHgoo2SOUOx XDPeNXchEcZjBSHdAJNqKWa7ljMeuMKrTNf4CP3WJ8GqtsRuMuaZIv9Uc840CIB8ZQHtCl2RH0snGr3e XBFfGURUOj0SQCo8NhZ4EFUuTen8ZTJzL3L5LGvhL0ZeQpK6E8F2JZV0NRU+YVdyBIo4BGTmCWzgOBXq WnjuEjB4YBBoWMD4QyPoUBu7Qr7kWUNAIn0+ARvblPHarJsxQSAUDfB0FHN7TAdkWNNXDj6D ID Date Data Source [id number] 04/12/2020 08:37:17 AM EST [facility] Name Value Range Interpretation Code Description Data Kathi rce(s) Supporting Document(s) EKG [facility] QGKBZf3mFoMHAcSuk7DfFmPjWPKpHF0ayqu8L7N7bTHeL7NrhPThg1owB5HxW3GtZXEhOGVWEK3OqQDm jb2 [file] Z3o1uxZNZlFrAM/5YBakH0srRvOl0N09fLKaUgh0LKuyII9/+5o3ZwH0R/32o9fyi/Yq9v+TIx6p+attendance secretary AU7hgxls7O/3RlAW8tDl5QHlCzkP4O0V8+6KA0P4QV+H/ebaVYzL9VNucS+hTTwkAByF+uyf/ccnYZWA TqR6uGGp8CZ1VkUzJxhFLpBUVDxL5ZUzi2rQICCUDT vGxZW1RXV7FdPiMRyYPaJKEfepYbjlkXHgGEEbnDGDq/oAUkTdBES+nZkVIrUlWMtqzGzVXTDRY2qTMH drHeHJ0fBbqlQYOQqTutYJpHA0ImQQH6k1NtSBRhoRuyywcUXq+WR6EMgrHt7X6gobpwEgweH+gC+X76 1I6+eO02MCcJEkJIPPz1vmjlJKMK3HkWI57afYWm15 QxHytKnSdsRPLyTWjqy23AjKNxspcTZyqrgtT5Iv7fPCpKfIiKBFJ2NXHxa+GBiZRrYCLleoquDBrBu9 jjyLcFTOzBs267cCeN+rxcfXA3HCTCsAwkLvwz+QSU+ULcsJdWiUUm1RUoVLWCYkwg0xCiT8iADMi7hL b7VEFGAIV2tyJUJbmTRRKWNeIM4j8Ep2M66IjWOUSU [file] Hal0EjNGAbQEDCNl4+RiK4UHJ2mUDcWtb2QvI8VrfpRXSKUs== ID Date Data Source [id number] 04/12/2020 06:32:35 AM EST [facility] [place] [facility] Name Value Range Interpretation Code Description Data Kathi rce(s) Supporting Document(s) SODIUM 138 mmol/L (136-145) [facility] [place] [facility] POTASSIUM 4.3 mmol/L (3.6-5.2) [facility] [place] [facility] CHLORIDE 106 mmol/L (100-108) [facility] [place] [facility] CO2 24 mmol/L (22-31) [facility] [place] [facility] ANION GAP 8 mmol/L (7-16) [facility] [place] [facility] UREA NITROGEN 29 mg/dL (7-24) H [facility] [place] [facility] CREATININE 0.91 mg/dL (0.60-1.00) [facility] [place] [facility] BUN/CREAT RATIO 31.9 RATIO (10.0-20.0) H [facility] GLUCOSE 83 mg/dL (70-99) [facility] [place] [facility] CALCIUM 9.0 mg/dL (8.4-10.2) [facility] [place] [facility] GFR >60 ml/min/1.73m2 (>59) [facility] [place] [facility] GFR ( AMER) >60 ml/min/1.73m2 (>59) [facility] [place] [facility] GFR INTERPRETATION [facility] --NORMAL KIDNEY FUNCTION OR MILD DISEASE - GFR >OR= 60CHRONIC KIDNEY DISEASE - GFR 15 - 59RENAL FAILURE - GFR <15 Est. GFR calculation based on the MDRDstudy equation, which assumes a steadystate for creatinine. Est. GFR should notbe used for medication dosing. ID Date Data Source [id number] 04/12/2020 06:02:20 AM EST [facility] [place] [facility] Name Value Range Interpretation Code Description Data [facility]) Supporting Document(s) WBC 8.1 10*3/uL (4.1-11.0) [facility] [place] [facility] [place] RBC 5.45 10*6/uL (4.00-5.40) H [facility] [place] [facility] HGB 18.1 g/dL (12.0-16.0) H [facility] [place] [facility] HCT 50.6 % (36.0-47.0) H [facility] [place] [facility] [place] [address] [place] [address] MCV 92.8 fL (80.0-95.0) [facility] [place] [facility] MCH 33.1 pg (27.0-32.0) H [facility] [place] [facility] MCHC 35.7 g/dL (32.0-36.0) [facility] [place] [facility] RDW 12.8 % (10.5-14.5) [facility] [place] [facility] PLT 258 10*3/uL (150-450) [facility] [place] [facility] MPV 8.0 fL (7.1-10.7) [facility] [place] [facility] ID Date Data Source [id number] 04/11/2020 05:34:01 PM EST [facility] NT INFORMATIONPatient MRN Name Date of Age Gend*PT [id number] ShaydanielMercy 1955 64 years F SDCXPT Location Admission Date/Time Visit ID Attending Provider-04/11/20 1403 --- Zhanna Harris MD([id number]) EPI ID CSN Admitting Provider [id number] Zhanna Harris MD([id number]) Attestation signed by Zhanna Harris MD at [...] the plan as noted above.Beto Harris M.D., [facility], [facility]Clinical Cardiac Electrophysiology04/11/2020 4:17 PM --ADMISSION [...] Lyme disease, status post treatment . Babeosis, 12535. Atrial flutter status post multiple DC cardioversions. Patient on Xarelto.4. Distant history of tobacco useThe patient presented to [facility]2019 for palpitations witha heart rate [...] 15 mg daily, although review of records pnryccya93 mg daily which would be the appropriate dose.The patient denies any history of TIA/CVA, CAD, PAD. 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 She currently denies any symptoms other thanfatigue [...] file Gets together: Not on file Attends orthodox service: Not on file Active member [...] symmetricSkin: No rash or lumps.Neurologic: Grossly normalDiagnosticsLabs, [facility]:Glucose 94Creatinine 0.68Sodium 138Potassium 4.1AST 49ALT 76Mag [...] amiodarone, she wasloaded [facility] at [facility]. Continue oral cardizem. Start PO amiodarone.Monitor blood pressure and heart rate. Continue Xarelto, 20mg dose as she hasnormal creatinine.Plan RFA ablation for tomorrow. Further recommendations per Dr. Harris.Follow up with Dr. Galarza in 1-2 weeks after discharge.Signature: Dominick OrozcoMIRELLAate: April 11, 2020Time: 2:11 PM Name Value Range Interpretation Code Description Data Kathi rce(s) Supporting Document(s) ID Date Data Source [id number] 04/11/2020 04:54:08 PM EST [facility] [place] [facility] Name Value Range Interpretation Code Description Data Kathi rce(s) Supporting Document(s) SODIUM 142 mmol/L (136-145) [facility] [place] [facility] POTASSIUM 4.5 mmol/L (3.6-5.2) [facility] [place] [facility] CHLORIDE 105 mmol/L (100-108) [facility] [place] [facility] CO2 24 mmol/L (22-31) [facility] [place] [facility] ANION GAP 13 mmol/L (7-16) [facility] [place] [facility] UREA NITROGEN 17 mg/dL (7-24) [facility] [place] [facility] CREATININE 0.70 mg/dL (0.60-1.00) [facility] [place] [facility] BUN/CREAT RATIO 24.3 RATIO (10.0-20.0) H [facility] GLUCOSE 78 mg/dL (70-99) [facility] [place] [facility] CALCIUM 9.4 mg/dL (8.4-10.2) [facility] [place] [facility] TOTAL PROTEIN 6.2 g/dL (6.4-8.2) L [facility] [place] [facility] ALBUMIN 3.7 g/dL (3.2-4.5) [facility] [place] [facility] GLOBULIN 2.5 g/dL (2.7-4.3) L [facility] [place] [facility] ALB/GLOB RATIO 1.5 RATIO [facility] [place] [facility] ALKALINE PHOSPHATASE 111 U/L (45-117) [facility] BILIRUBIN,TOTAL 0.9 mg/dL (0.0-1.0) [facility] [place] [facility] PLEASE NOTE:Total bilirubin results may be falselyelevated in patients taking Eltrombopag. AST (SGOT) 51 U/L (11-39) H [facility] [place] [facility] ALT (SGPT) 82 U/L (12-78) H [facility] [place] [facility] GFR >60 ml/min/1.73m2 (>59) [facility] [place] [facility] GFR ( AMER) >60 ml/min/1.73m2 (>59) [facility] [place] [facility] GFR INTERPRETATION [facility] --NORMAL KIDNEY FUNCTION OR MILD DISEASE - GFR >OR= 60CHRONIC KIDNEY DISEASE - GFR 15 - 59RENAL FAILURE - GFR <15 Est. GFR calculation based on the MDRDstudy equation, which assumes a steadystate for creatinine. Est. GFR should notbe used for medication dosing. ID Date Data Source [id number] 04/11/2020 04:38:13 PM EST [facility] [place] [facility] Name Value Range Interpretation Code Description Data Kathi rce(s) Supporting Document(s) APTT 31.3 s (22.0-34.3) [facility] [place] [facility] PERFORMED AT [address] [place] [address] N Y [id number] ID Date Data Source [id number] 04/11/2020 04:38:13 PM EST [facility] [place] [facility] Name Value Range Interpretation Code Description Data Kathi rce(s) Supporting Document(s) PT 11.7 s (9.2-11.9) [facility] [place] [facility] PERFORMED AT [address] [place] [address] N Y [address] INR 1.12 [facility] [place] [facility] SUGGESTED THERAPEUTIC RANGES USING INR F ORSTABILIZED ANTICOAGULATED PATIENTS:STANDARD DOSE THERAPY INR 2.0-3.0 DVT, PE, PREVENT DVT OR EMBOLISMHIGH DOSE THERAPY INR 2.5-3.5 PREVENT EMBOLISM FROM MECHANICAL HEART VALVE ID Date Data Source [id number] 04/11/2020 04:31:31 PM EST [facility] [place] [facility] Name Value Range Interpretation Code Description Data Kathi rce(s) Supporting Document(s) WBC 9.0 10*3/uL (4.1-11.0) [facility] [place] [facility] [place] RBC 5.81 10*6/uL (4.00-5.40) H [facility] [place] [facility] HGB 19.1 g/dL (12.0-16.0) H [facility] [place] [facility] HCT 54.4 % (36.0-47.0) H [facility] [place] [facility] PERFORMED AT [address] [place] [address] [address] [place] [address] MCV 93.7 fL (80.0-95.0) [facility] [place] [facility] MCH 32.9 pg (27.0-32.0) H [facility] [place] [facility] MCHC 35.1 g/dL (32.0-36.0) [facility] [place] [facility] RDW 12.8 % (10.5-14.5) [facility] [place] [facility] PLT 274 10*3/uL (150-450) [facility] [place] [facility] MPV 8.4 fL (7.1-10.7) [facility] [place] [facility] ID Date Data Source [id number] 04/11/2020 02:17:21 PM EST [facility] Name Value Range Interpretation Code Description Data Kathi rce(s) Supporting Document(s) EKG [facility] FDAXUg6yNiBLVvGpk3TwOpAzTETwAQ2itcp6O7I4fQWoI2VvsTFil7ogD1CqA2WlWAWcKOPRWU0UuTXr jb2 [file] gUMZZxOQTqYteukwvt6opyPgdvFAhY4lT8zOBgsGO7xNdH52vybodF8CvajfUj1eAemZS/gI57gtS/scallop dredger tl/PBCchGBSme9aGUdKApbKYraqS2S41eo+SggAaSH1R2uV8dSdNJXoxTPxugY3ORAa7XgLx7TO0wSZp lGvGsRSVDGWusKn/nJfWpiGOJZRgxLHoZ//zX//7P/ 9zX5gjUR2i//7nf/1f9f/45z//zz//539Yl/jp21vSl/zaY7Hqnr43O2lzvff3+D+s/HsFlfrpr/2HLW uyw28sUmooA/neQ3oG0rwD4P1/HI2nrs5XHSXjOpT9pWKVjEuNfL9jlJ33u7wdw7xGaQF/4/2jU6fS4i TK4jzb45+egf9+4IiN4V/W5Qb6/6d21C0ewIY+fO2r fD8Rhemidf1j6a5m81+4rSkK/q/9d+7/2h8k/r0wjF/8pn0LEeN/zftjZQf90dddr+PejeEEwj1Tt2TZ b9x+LUp9wMvsW+NyrT4k/We3PAdW+yUJaeJ+ag3F24t7/RSdg29BokXGD3qj+366eHqRffpcDZ4kq7nS +3lQYgMmZOig5/fK/GEP29/jiPMs3F4E2hbc46FgZ6 5vV/RMytgHfH/5evrTD98RmFL3mTrJw4ODae/2ugoc+NpHoQLW/sbdj0v/0lA5mnB1VlNwLvA7ywC2tE 3RTqZIasz2Cutf8Ac6Y+j+9RJ0pW4vkUwi/4Fc6b+Kpzlx1Hiwro8Jf9tdsma5ccDJz7/4Fr//4O21u/ 3c9T1yBSPWHEzbfi7IKjB/qzSPWowbsuj0Zf4jrh9Z hVfhiLeRlqxvERvAwK1rfBhnCBss/Z10YZ+3bvCO/Z6miEJJoXF68BtyxpN68goMybQy/eAVGhrVM7Kf CreIMAReESjM/2Oeo8FMYwY/zVT+wzgS3Qz4aarlUE7p2X/7b7xU9GDkPPeFte/9yJ7xByrP1jwcG0+O 3HhYv9ru22dNoi/yAIx1GP1gKebmV/LzkfZqmS9FzJ /wLQdM3ZiB8ZGnep0DOuKL8YoAaHBhbg5UJONIA6Lw1FO8OW/+Arm9E9RLJ39gEUuBPf2n/fv7fZW++1 5C7mJ07iw42CjnrRW2pfNb4dJW9n07K6M6aIiXnMQIpFtxkxHqKH+fmqwBfw5MVX8pjvKFb1p9QU8F2+ Dj+FN2fdZYr+u/mBzp6lN0Rp7BlnDaCWndcEAtbgA9 SeuDmhEOl6ubtU7LL9clEVmM3vmeIepU7UiYWN2QmRpVbYXm88ZsJ9f1YF5UKKNwTrZFN+7AWoXmh2Xx RpL2Q6bjhQYoDijwsa+FAtXvJAlozSBalclW4bxdc60/54JsyTl0a8WLepupteV76dpD96RqCxdSwaGs y635d+IVnnUnXkGeO/AHnPUXX3fAGfzOwoRuAClxhG rF7rY29s+zcPA0jBTSdXG/zUDP1hz/19E6GN6tC0vcRuUAgX6Cmkl2H2Ztas/jr1NZzuV1KQMCcTt+5I Mz0gvUgKqXl4injy/MS3ebT2w4+82w/48a50RHAO/hnfibG/02ZdfZMdU5YsM/eHfgmRAewjEhPRB+iX Keara/cjeCXi+L5H2oEED+CSCNkAXhFDOvUr/f58iF4M 7gjpZvBG/VYB4kQ4BhnAUkMlM68Jc+Az6oF4RN5Ngpt/cwWv/437d2P/zH3865Gi2clAEbRgMdEra/Chelly [file] zeW6s4EYOeCIxvQN9mzpPxLESgQvtoDs5lbOF1DFElYwpNUb0Hi7YyuzA3paZoRvRpDTw6FwAlLL3X ID Date Data Source [id number] 04/11/2020 09:13:00 AM EST [facility] Name Value Range Interpretation Code Description Data Kathi rce(s) Supporting Document(s) Magnesium Level 2.2 [facility]) ID Date Data Source [id number] 04/11/2020 09:13:00 AM EST [facility] ([facility]) Name Value Range Interpretation Code Description Data Kathi rce(s) Supporting Document(s) Sodium 138 [facility] ([facility] Calcium [Mass/volume] in Serum or Plasma 9.2 [facility] ([facility]) Chloride [Moles/volume] in Serum or Plasma 106 [facility] ([facility]) Carbon dioxide, total [Moles/volume] in Serum or Plasma 25 [facility] ([facility]) Blood Urea Nitrogen 15 5-21 [facility] ([facility]) Potassium [Moles/volume] in Serum or Plasma 4.1 [facility] ([facility]) Glucose 94 70-100 [facility] Creatinine 0.68 0.6-1.5 [facility] ([facility]) Glomerular filtration rate/1.73 sq M.pre dicted [Volume Rate/Area] in Serum or Plasma by Creatinine-based formula (MDRD) 60.0 [facility] ([facility]) ID Date Data Source [id number] 04/11/2020 09:13:00 AM EST [facility] ([facility]) Name Value Range Interpretation Code Description Data Kathi rce(s) Supporting Document(s) Alkaline phosphatase [Enzymatic activity/volume] in Serum or Plasma 1 04 [facility] ([facility]) Aspartate aminotransferase [Enzymatic activity/volume] in Serum or Plasma 49 [facility] ([facility]) Bilirubin.total [Mass/volume] in Serum or Plasma 0.7 [facility] ([facility]) Alanine aminotransferase [Enzymatic activity/volume] in Serum or Pl asma 76 [facility] ([facility]) Bilirubin.direct [Mass/volume] in Serum or Plasma 0.3 [facility] ([facility]) Protein [Mass/volume] in Serum or Plasma 6.0 [facility] ([facility]) Albumin [Mass/volume] in Serum or Plasma 3.4 [facility] ([facility]) Cholesterol [Mass/volume] in Serum or Plasma Laboratory test result [facility] ([facility]) ID Date Data Source [id number] 04/11/2020 09:13:00 AM EST [facility] ([facility] Name Value Range Interpretation Code Description Data Kathi rce(s) Supporting Document(s) White Blood Count 10.1 4.3-10.9 [facility] ([facility]) Platelets 279 130-400 [facility] Red Blood Count 5.54 4.70-6.20 [facility] ([facility]) Hematocrit 51.3 39.0-50.0 [facility] ([facility]) Hemoglobin 17.7 13.0-17.0 [facility] ([facility]) ID Date Data Source [id number] 04/10/2020 01:21:00 PM EST [facility] Name Value Range Interpretation Code Description Data Kathi rce(s) Supporting Document(s) SARS coronavirus 2 RNA [Presence] in Res piratory specimen by RISHABH with probe detection [facility] This lab was ordered by [facility] a nd reported by [facility]. ID Date Data Source [id number] 04/10/2020 12:55:00 PM EST [facility] ([facility]) Name Value Range Interpretation Code Description Data Kathi rce(s) Supporting Document(s) Red Blood Count 5.60 10 4.00-5.40 Above high normal [place] ([facility]) White Blood Count 5.9 10 4.0-10.0 Normal (applies to non-numeri c results) [facility] ([facility]) Hematocrit 53.3 % 36.0-47.0 Above high normal [facility] ([facility]) Hemoglobin 17.4 g/dL 12.0-15.5 Above high normal [facility] ([facility]) Mean Corpuscular HGB Conc 32.6 g/dL 32.0-36.5 Normal (applies to non-numeric results) [facility] ([facility]) Mean Corpuscular Hemoglobin 31.1 pg 27.0-33.0 Norm al (applies to non-numeric results) [facility] ([facility]) Mean Corpuscular Volume 95.2 fl 80.0-96.0 Normal ( applies to non-numeric results) [facility] ([facility]) Red Cell Distribution Width 12.2 % 11.5-14.5 Norm al (applies to non-numeric results) [facility] ([facility]) Platelet Count, Automated 263 10 150-450 Normal (applies to non-numeric results) [facility] ([facility]) Nucleated Red Blood Cell % 0.0 % 0-0 Normal (applies to n on-numeric results) [facility] ([facility]) ID Date Data Source [id number] 04/10/2020 12:55:00 PM EST [facility] ([facility]) Name Value Range Interpretation Code Description Data Kathi rce(s) Supporting Document(s) Glucose, Fasting 84 mg/dL 70-100 Normal (applies to non-numeric results) [facility] ([facility]) Blood Urea Nitrogen 17 mg/dL 7-18 Normal (applies to non-nume kelly results) [facility] ([facility]) Creatinine For GFR 0.69 mg/dL 0.55-1.30 Normal (applies to non -numeric results) [facility] ([facility]) Sodium Level 141 meq/L 136-145 Normal (applies to non-numeric res ults) [facility] Potassium Serum 4.0 meq/L 3.5-5.1 Normal (applies to non-numeric results) [facility] ([facility]) Glomerular Filtration Rate Laboratory test result Normal (applies to non- numeric results) [facility] ([facility]) <content>Units are mL/min/1.73 m2</content>
<content></content>
<content>Chronic Kidney Disease Staging per NKF:</content>
<content></content>
<content>Stage I & II GFR >=60 Normal to Mildly Decreased</content>
<content>Stage III GFR 30- 59 Moderately Decreased</content>
<content>Stage IV GFR 15-29 Severely Decreased</content>
<content>Stage V GFR <15 Very Little GFR Left</content>
<content>ESRD GFR <15 on MEDICARE SPECIALIST</content>
<content></content> Chloride Level 107 meq/L 98-107 Normal (applies to non-numeric r esults) [facility] ([facility]) Anion Gap 7 meq/L 8-16 Below low normal [facility]) Carbon Dioxide Level 27 meq/L 21-32 Normal (applies to non-num pop results) [facility]) Calcium Level 8.6 mg/dL 8.8-10.2 Below low normal [facility] T ([facility]) Ast/Sgot 40 U/L 7-37 Above high normal [facility]) Alkaline Phosphatase 95 U/L 45-117 Normal (applies to non-num pop results) [facility]) Alt/SGPT 69 U/L 12-78 Normal (applies to non-numeric resul ts) [facility] ([facility]) Bilirubin,Total 0.5 mg/dL 0.2-1.0 Normal (applies to non-numeric results) [facility] ([facility]) Total Protein 5.7 GM/DL 6.4-8.2 Below low normal [facility] T ([facility]) Albumin 3.4 GM/DL 3.2-5.2 Normal (applies to non-numeric resul ts) [facility] ([facility]) Albumin/Globulin Ratio 1.5 1.2-2.2 Normal (applies to non-n umeric results) [facility] ([facility]) ID Date Data Source [id number] 04/10/2020 12:55:00 PM EST [facility] ([facility]) Name Value Range Interpretation Code Description Data Kathi rce(s) Supporting Document(s) CPK Creatine Phosphokinase 47 U/L 26-192 Queenie l (applies to non-numeric results) [facility] ([facility]) MB/CK Relative Index 2.55 Normal (applies to non-num pop results) [facility] ([facility]) <content>DIAGNOSIS CRITERIA</content>
<content>MMB ng/ml Relative Index (RI)</content>
<content>NON-AMI < or = 5 N/A</content>
<content>NGUYEN ZONE > 5 < or = 4</content>
<content>AMI > 5 > 4</content>
<content></content> CK-MB Value Mass 1.2 ng/mL Normal (applies to non-numeric results) [facility] ([facility]) Troponin I Laboratory test result Normal (applies to non-n umeric results) [facility] ([facility]) <content>Troponin I Reference Interval f or Siemens [place] LOCI:</content>
<content></content>
<content>99th Percentile= 0.00-0.045 ng/ml</content>
<content></content>
<content>Risk Stratification:</content>
<content><= 0.10 ng/ml Decreased Risk for Adverse Clinical</content>
<content>Events.</content>
<content>0.10-1.50 ng/ml Increased Risk for Adverse Clinical</content>
<content>Events. Evaluation of additional</content>
<content>criterion and/or repeat testing in 2-6</content>
<content>hours is suggested to rule out myocardial</content>
<content>damage.</content>
<content>>= 1.50 ng/ml Indicative of Myocardial Injury.</content>
<content></content> ID Date Data Source [id number] 04/10/2020 08:45:00 AM EST [facility] ([facility]) Name Value Range Interpretation Code Description Data Kathi rce(s) Supporting Document(s) Laboratory test finding (navigational concept) 1.3 Normal (applies to non- numeric results) [facility] ([facility]) Laboratory test finding (navigational concept) 15.8 s 1 2.1-14.4 Above high normal [facility] ([facility]) ID Date Data Source [id number] 04/10/2020 08:34:00 AM EST [facility] ([facility]) Name Value Range Interpretation Code Description Data Kathi rce(s) Supporting Document(s) Laboratory test finding (navigational concept) 0.00 ng/mL 0 .00-0.08 Normal (applies to non-numeric results) [facility] ID Date Data Source [id number] 04/10/2020 08:33:00 AM EST [facility] ([facility]) Name Value Range Interpretation Code Description Data Kathi rce(s) Supporting Document(s) Laboratory test finding (navigational concept) 50.0 % 3 8.0-51.0 Normal (applies to non-numeric results) [facility] ([facility]) Laboratory test finding (navigational concept) 140 meq/L 1 36-145 Normal (applies to non-numeric results) [facility] ([facility]) Laboratory test finding (navigational concept) 132 mg/dL 7 0-105 Above high normal [facility] ([facility]) Laboratory test finding (navigational concept) 4.7 mg/dL 4 .5-5.3 Normal (applies to non-numeric results) [facility] ([facility]) Laboratory test finding (navigational concept) 101 meq/L 9 8-109 Normal (applies to non-numeric results) [facility] ([facility]) Laboratory test finding (navigational concept) 4.1 meq/L 3 .5-5.1 Normal (applies to non-numeric results) [facility] ([facility]) Laboratory test finding (navigational concept) 29.0 MM/L 2 3.0-27.0 Above high normal [facility] ([facility]) Laboratory test finding (navigational concept) 20 mg/dL 8 -26 Normal (applies to non-numeric results) [facility] ([facility]) Laboratory test finding (navigational concept) 0.8 mg/dL 0 .6-1.3 Normal (applies to non-numeric results) [facility] ([facility]) ID Date Data Source [id number] 04/10/2020 08:30:00 AM EST [facility] ([facility]) Name Value Range Interpretation Code Description Data Kathi rce(s) Supporting Document(s) Red Blood Count 5.60 10 4.00-5.40 Above high normal [place] [facility] ([facility]) White Blood Count 5.9 10 4.0-10.0 Normal (applies to non-numeri c results) [facility] ([facility]) Hematocrit 53.3 % 36.0-47.0 Above high normal [facility] Mean Corpuscular Volume 95.2 fl 80.0-96.0 Normal ( applies to non-numeric results) [facility] ([facility]) Hemoglobin 17.4 g/dL 12.0-15.5 Above high normal [facility] ([facility]) Mean Corpuscular Hemoglobin 31.1 pg 27.0-33.0 Norm al (applies to non-numeric results) [facility] ([facility]) Mean Corpuscular HGB Conc 32.6 g/dL 32.0-36.5 Normal (applies to non-numeric results) [facility]) Red Cell Distribution Width 12.2 % 11.5-14.5 Norm al (applies to non-numeric results) [facility] ([facility]) Nucleated Red Blood Cell % 0.0 % 0-0 Normal (applies to n on-numeric results) [facility] ([facility]) Platelet Count, Automated 263 10 150-450 Normal (applies to non-numeric results) [facility]) ID Date Data Source [id number] 04/10/2020 08:30:00 AM EST [facility] ([facility]) Name Value Range Interpretation Code Description Data Kathi rce(s) Supporting Document(s) Thyrotropin [Units/volume] in Serum or Plasma 2.030 uIU/ML 0. 358-3.740 Normal (applies to non-numeric results) [facility] ([facility]) ID Date Data Source [id number] 04/07/2020 11:45:00 AM EST [facility] ([facility]) Name Value Range Interpretation Code Description Data Kathi rce(s) Supporting Document(s) EKG Laboratory test result [facility] ([facility]) ID Date Data Source [id number] 04/03/2020 10:53:00 AM EST [facility] ([facility] Name Value Range Interpretation Code Description Data Kathi rce(s) Supporting Document(s) Magnesium Level 2 [facility] ([facility]) ID Date Data Source [id number] 04/03/2020 10:53:00 AM EST [facility] ([facility] Name Value Range Interpretation Code Description Data Kathi rce(s) Supporting Document(s) Alanine aminotransferase [Enzymatic activity/volume] in Serum or Pl asma 61 [facility] ([facility]) Calcium [Mass/volume] in Serum or Plasma 8.6 [facility] ([facility]) Albumin [Mass/volume] in Serum or Plasma 3.3 [facility] ([facility]) Carbon dioxide, total [Moles/volume] in Serum or Plasma 27 [facility] ([facility]) Alkaline phosphatase [Enzymatic activity/volume] in Serum or Plasma 9 7 [facility] ([facility]) Potassium [Moles/volume] in Serum or Plasma 4.4 [facility] ([facility]) Chloride [Moles/volume] in Serum or Plasma 104 [facility] ([facility]) Protein [Mass/volume] in Serum or Plasma 5.8 [facility] ([facility]) Sodium 139 [facility] ([facility] Urea nitrogen [Mass/volume] in Serum or Plasma 26 [facility] ([facility]) Aspartate aminotransferase [Enzymatic activity/volume] in Serum or Plasma 30 [facility] ([facility]) Glucose 86 70-100 [facility] ([facility] Creatinine For GFR 0.81 [facility] ([facility]) ID Date Data Source [id number] 04/03/2020 10:53:00 AM EST [facility] ([facility]) Name Value Range Interpretation Code Description Data Kathi rce(s) Supporting Document(s) White Blood Count 7.7 4.3-10.9 [facility] ([facility]) Red Blood Count 5.34 4.70-6.20 [facility] ([facility]) Platelets 268 130-400 [facility] Hemoglobin 17.1 13.0-17.0 [facility] ([facility]) Hematocrit 50.9 39.0-50.0 [facility] ([facility]) ID Date Data Source [id number] 04/02/2020 04:00:00 AM EST [facility] Name Value Range Interpretation Code Description Data Kathi rce(s) Supporting Document(s) SARS coronavirus 2 RNA [Presence] in Res piratory specimen by RISHABH with probe detection [facility] This lab was ordered by [facility] a nd reported by [facility]. ID Date Data Source [id number] 03/30/2020 06:13:00 PM EST [facility] ([facility]) Name Value Range Interpretation Code Description Data Kathi rce(s) Supporting Document(s) Thyrotropin [Units/volume] in Serum or Plasma 2.050 uIU/ML 0. 358-3.740 Normal (applies to non-numeric results) [facility] ([facility]) Thyroxine (T4) free [Mass/volume] in Serum or Plasma 1.30 ng/dL 0.76-1.46 Normal (applies to non-numeric results) [facility] ([facility]) Digoxin [Mass/volume] in Serum or Plasma 0.1 ng/mL 0.5-2.0 Below low normal [facility] ([facility]) ID Date Data Source [id number] 03/30/2020 06:13:00 PM EST [facility] Name Value Range Interpretation Code Description Data Kathi rce(s) Supporting Document(s) Glucose, Fasting 80 mg/dL 70-100 Normal (applies to non-numeric results) [facility] ([facility]) Blood Urea Nitrogen 22 mg/dL 7-18 Above high normal [facility] ([facility]) Creatinine For GFR 0.84 mg/dL 0.55-1.30 Normal (applies to non -numeric results) [facility] ([facility]) Glomerular Filtration Rate Laboratory test result Normal (applies to non- numeric results) [facility]) <content>Units are mL/min/1.73 m2</content>
<content></content>
<content>Chronic Kidney Disease Staging per NKF:</content>
<content></content>
<content>Stage I & II GFR >=60 Normal to Mildly Decreased</content>
<content>Stage III GFR 30- 59 Moderately Decreased</content>
<content>Stage IV GFR 15-29 Severely Decreased</content>
<content>Stage V GFR <15 Very Little GFR Left</content>
<content>ESRD GFR <15 on MEDICARE SPECIALIST</content>
<content></content> Sodium Level 141 meq/L 136-145 Normal (applies to non-numeric res ults) [facility] ([facility]) Potassium Serum 4.1 meq/L 3.5-5.1 Normal (applies to non-numeric results) [facility] ([facility]) Anion Gap 4 meq/L 8-16 Below low normal [facility] ( [facility]) Carbon Dioxide Level 29 meq/L 21-32 Normal (applies to non-num pop results) [facility] ([facility]) Chloride Level 108 meq/L 98-107 Above high normal [facility] ([facility]) Calcium Level 8.7 mg/dL 8.8-10.2 Below low normal [facility] ([facility]) ID Date Data Source [id number] 03/30/2020 06:13:00 PM EST [facility] Name Value Range Interpretation Code Description Data Kathi rce(s) Supporting Document(s) Ast/Sgot 63 U/L 7-37 Above high normal [facility] ([facility]) Alt/SGPT 100 U/L 12-78 Above high normal [facility] ([facility]) Bilirubin,Direct 0.2 mg/dL 0.0-0.2 Normal (applies to non-numeric results) [facility] ([facility]) Bilirubin,Total 0.6 mg/dL 0.2-1.0 Normal (applies to non-numeric results) [facility] ([facility]) Alkaline Phosphatase 103 U/L 45-117 Normal (applies to non-num pop results) [facility] ([facility]) Total Protein 6.1 GM/DL 6.4-8.2 Below low normal [facility] Albumin 3.6 GM/DL 3.2-5.2 Normal (applies to non-numeric resul ts) [facility] ([facility]) Albumin/Globulin Ratio 1.4 1.2-2.2 Normal (applies to non-n umeric results) [facility] ([facility]) ID Date Data Source [id number] 03/30/2020 06:13:00 PM EST [facility] ([facility]) Name Value Range Interpretation Code Description Data Kathi rce(s) Supporting Document(s) CK-MB Value Mass 3.0 ng/mL Normal (applies to non-numeric results) [facility] ([facility]) CPK Creatine Phosphokinase 82 U/L 26-192 Queenie l (applies to non-numeric results) [facility] ([facility]) Troponin I Laboratory test result Normal (applies to non-n umeric results) [facility] ([facility]) <content>Troponin I Reference Interval f or Siemens [place] LOCI:</content>
<content></content>
<content>99th Percentile= 0.00-0.045 ng/ml</content>
<content></content>
<content>Risk Stratification:</content>
<content><= 0.10 ng/ml Decreased Risk for Adverse Clinical</content>
<content>Events.</content>
<content>0.10-1.50 ng/ml Increased Risk for Adverse Clinical</content>
<content>Events. Evaluation of additional</content>
<content>criterion and/or repeat testing in 2-6</content>
<content>hours is suggested to rule out myocardial</content>
<content>damage.</content>
<content>>= 1.50 ng/ml Indicative of Myocardial Injury.</content>
<content></content> MB/CK Relative Index 3.66 Normal (applies to non-num pop results) [facility] ([facility]) <content>DIAGNOSIS CRITERIA</content>
<content>MMB ng/ml Relative Index (RI)</content>
<content>NON-AMI < or = 5 N/A</content>
<content>NGUYEN ZONE > 5 < or = 4</content>
<content>AMI > 5 > 4</content>
<content></content> ID Date Data Source [id number] 03/30/2020 06:13:00 PM EST [facility] ([facility]) Name Value Range Interpretation Code Description Data Kathi rce(s) Supporting Document(s) aPTT in Platelet poor plasma by Coagulation assay 30.0 s 24.2-38.5 Normal (applies to non-numeric results) [facility] ID Date Data Source [id number] 03/30/2020 06:13:00 PM EST [facility] ([facility]) Name Value Range Interpretation Code Description Data Kathi rce(s) Supporting Document(s) Inr 1.09 Normal (applies to non-numeric resul ts) [facility]) THERAPUTIC HUMAN INR VALUES INDICATIONS NORMAL RANGES PROPHYLAXIS/TREATMENT OF: VENOUS THROMBOSIS 2.0-3.0 PULMONARY EMBOLISM 2.0-3.0 PREVENTION OF SYSTEMIC EMBOLISM FROM: TISSUE HEART VALVES 2.0-3.0 ACUTE MYOCARDIAL INFARCTION 2.0-3.0 VALVULAR HEART DISEASE 2.0-3.0 ATRIAL FIBRILLATION 2.0-3.0 MECHANICAL VALVES(HIGH RISK) 2.5-3.5 RECURRENT MYOCARDIAL INFARCTION 2.5-3.5 Prothrombin Time 14.3 s 12.5-14.3 Above high normal [facility] ([facility]) ID Date Data Source [id number] 03/30/2020 06:13:00 PM EST [facility] ([facility]) Name Value Range Interpretation Code Description Data Kathi rce(s) Supporting Document(s) Red Blood Count 5.01 10 4.00-5.40 Normal (applies to non-numeric results) [facility] ([facility]) White Blood Count 10.1 10 4.0-10.0 Above high normal [facility] ([facility]) Hematocrit 48.1 % 36.0-47.0 Above high normal [facility] ([facility]) Mean Corpuscular Volume 96.0 fl 80.0-96.0 Normal ( applies to non-numeric results) [facility] ([facility]) Hemoglobin 16.3 g/dL 12.0-15.5 Above high normal [facility] ([facility]) Mean Corpuscular HGB Conc 33.9 g/dL 32.0-36.5 Normal (applies to non-numeric results) [facility] ([facility]) Mean Corpuscular Hemoglobin 32.5 pg 27.0-33.0 Norm al (applies to non-numeric results) [facility] Red Cell Distribution Width 12.6 % 11.5-14.5 Norm al (applies to non-numeric results) [facility] ([facility]) Lymph % 16.2 % 24.0-44.0 Below low normal [facility] ( [facility]) Neutrophils % 74.0 % 36.0-66.0 Above high normal [facility] NT ([facility]) Platelet Count, Automated 259 10 150-450 Normal (applies to non-numeric results) [facility] ([facility]) Eos % 0.1 % 0.0-3.0 Normal (applies to non-numeric resul ts) [facility] ([facility]) [place] % 9.0 % 0.0-5.0 Above high normal [facility] ([facility]) Immature Granulocyte % 0.3 % 0-3.0 Normal (applies to non-n umeric results) [facility] ([facility]) Baso % 0.4 % 0.0-1.0 Normal (applies to non-numeric resul ts) [facility] ([facility]) Nucleated Red Blood Cell % 0.0 % 0-0 Normal (applies to n on-numeric results) [facility] ([facility]) Neutrophils # 7.5 10 1.5-8.5 Normal (applies to non-numeric re sults) [facility] ([facility]) Lymph # 1.6 10 1.5-5.0 Normal (applies to non-numeric resul ts) [facility] ([facility]) [place] # 0.9 10 0.0-0.8 Above high normal [facility] ([facility]) Eos # 0.0 10 0.0-0.5 Normal (applies to non-numeric resul ts) [facility] ([facility]) Baso # 0.0 10 0.0-0.2 Normal (applies to non-numeric resul ts) [facility] ([facility]) ID Date Data Source [id number] 03/30/2020 06:11:00 PM EST [facility] ([facility]) Name Value Range Interpretation Code Description Data Kathi rce(s) Supporting Document(s) Ethanol [Mass/volume] in Serum or Plasma 0.003 % 0.000-0 .010 Normal (applies to non-numeric results) [facility] ([facility]) Magnesium [Mass/volume] in Serum or Plasma 2.3 mg/dL 1.8-2 .4 Normal (applies to non-numeric results) [facility] ([facility]) ID Date Data Source [id number] 10/18/2019 11:04:00 AM EDT [facility] ([facility] Name Value Range Interpretation Code Description Data Kathi rce(s) Supporting Document(s) Alanine aminotransferase [Enzymatic activity/volume] in Serum or Pl asma 66 [facility] ([facility]) Albumin [Mass/volume] in Serum or Plasma 3.7 [facility] ([facility]) Carbon dioxide, total [Moles/volume] in Serum or Plasma 27 [facility] ([facility]) Chloride [Moles/volume] in Serum or Plasma 109 [facility] ([facility]) Calcium [Mass/volume] in Serum or Plasma 8.9 [facility] ([facility]) Alkaline phosphatase [Enzymatic activity/volume] in Serum or Plasma 8 1 [facility] ([facility]) Aspartate aminotransferase [Enzymatic activity/volume] in Serum or Plasma 33 [facility] ([facility]) Sodium 143 [facility] ([facility] Protein [Mass/volume] in Serum or Plasma 6.4 [facility] ([facility]) Potassium [Moles/volume] in Serum or Plasma 4.4 [facility] ([facility]) Creatinine For GFR 0.76 [facility] ([facility]) Urea nitrogen [Mass/volume] in Serum or Plasma 14 [facility] ([facility]) Glucose 90 70-100 [facility] ([facility]) ID Date Data Source [id number] 10/18/2019 11:04:00 AM EDT [facility] Name Value Range Interpretation Code Description Data Kathi rce(s) Supporting Document(s) White Blood Count 5.5 4.0-10.0 [facility] Hematocrit 44.0 [facility] ([facility]) Hemoglobin 14.6 [facility] ([facility]) Platelets 245 150-450 [facility] ([facility]) Red Blood Count 4.72 4.00-5.40 [facility] ([facility]) ID Date Data Source [id number] 08/30/2019 10:18:00 AM EDT [facility] Name Value Range Interpretation Code Description Data Kathi rce(s) Supporting Document(s) Tibc % Saturation 52.4 [facility] Iron binding capacity [Mass/volume] in Serum or Plasma 292 [facility] ([facility]) Iron 153 50-170 [facility] ID Date Data Source [id number] 07/29/2019 10:16:00 AM EDT [facility] Name Value Range Interpretation Code Description Data Kathi rce(s) Supporting Document(s) Tibc % Saturation 40.3 [facility] ([facility]) Iron 129 50-170 [facility] ([facility] Iron binding capacity [Mass/volume] in Serum or Plasma 320 [facility] ([facility]) ID Date Data Source [id number] 07/29/2019 10:16:00 AM EDT [facility] ([facility] Name Value Range Interpretation Code Description Data Kathi rce(s) Supporting Document(s) White Blood Count 8.8 4.0-10.0 [facility] Platelets 260 150-450 [facility] ([facility] Red Blood Count 4.81 4.0-5.40 [facility] ([facility]) Hematocrit 44.8 [facility] ([facility]) Hemoglobin 15.6 [facility] ([facility]) ID Date Data Source [id number] 07/02/2019 10:08:00 AM EDT [facility] ([facility] Name Value Range Interpretation Code Description Data Kathi rce(s) Supporting Document(s) Red Blood Count 4.92 4.00-5.40 [facility] ([facility]) White Blood Count 6.4 4.0-10.0 [facility] ([facility]) Hematocrit 46.3 [facility] ([facility]) Platelets 297 150-450 [facility] ([facility]) Hemoglobin 15.5 [facility] ([facility]) ID Date Data Source [id number] 07/02/2019 10:08:00 AM EDT [facility] ([facility] Name Value Range Interpretation Code Description Data Kathi rce(s) Supporting Document(s) Albumin [Mass/volume] in Serum or Plasma 3.8 [facility] ([facility]) Calcium [Mass/volume] in Serum or Plasma 9.3 [facility] ([facility]) Chloride [Moles/volume] in Serum or Plasma 107 [facility] ([facility]) Carbon dioxide, total [Moles/volume] in Serum or Plasma 32 [facility] ([facility]) Alanine aminotransferase [Enzymatic activity/volume] in Serum or Pl asma 90 [facility] ([facility]) Potassium [Moles/volume] in Serum or Plasma 4.2 [facility] ([facility]) Protein [Mass/volume] in Serum or Plasma 6.8 [facility] ([facility]) Alkaline phosphatase [Enzymatic activity/volume] in Serum or Plasma 9 0 [facility] ([facility]) Urea nitrogen [Mass/volume] in Serum or Plasma 19 [facility] ([facility]) Sodium 142 [facility] ([facility]) Glucose 79 70-100 [facility] Aspartate aminotransferase [Enzymatic activity/volume] in Serum or Plasma 41 [facility] ([facility]) Creatinine For GFR 0.86 [facility] ([facility]) Procedure Social History Code Duration Value Status Description Data Source(s ) Smoking 04/19/2020 12:00:00 AM EST Patient is a former smoker completed Patient is a former smoker [facility] Alcohol intake 04/13/2020 12:00:00 AM EST Not Currently completed [facility] Smoking 04/13/2020 12:00:00 AM EST Former smoker completed Former smoker [facility] Vital Signs ID Date Data Source [id number] Name Value Range Interpretation Code Description Data Source(s) [place] body weight 115 [lb_av] 115 [lb_av] [facility] T ([facility]) Oxygen saturation in Arterial blood by Pulse oximetry 98 % 98 % [facility] ([facility]) Body temperature 97.8 [degF] 97.8 [degF] [facility] Respiratory rate 18 /min 18 /min [facility] ( [facility]) Heart rate 57 /min 57 /min [facility] ([facility]) Body mass index (BMI) [Ratio] 23.1 kg/m2 23.1 k g/m2 [facility] ([facility]) Body weight 130.38 [lb_av] 130.38 [lb_av] DARLIN Thompson ([facility]) Body height 63 [in_i] 63 [in_i] [facility] ([facility]) 5'3" Diastolic blood pressure 84 mm[Hg] 84 mm[Hg] [facility] ([facility]) Systolic blood pressure 148 mm[Hg] 148 mm[Hg] M EDENT ([facility]) Diastolic blood pressure--sitting 86 mm[Hg] 86 mm[Hg] [facility] ([facility]) CBP, adult cuff/LA Systolic blood pressure--sitting 164 mm[Hg] 164 mm[Hg] [facility] ([facility]) CBP, adult cuff/LA Heart rate 51 /min 51 /min [facility] ([facility]) Body mass index (BMI) [Ratio] 23.0 kg/m2 23.0 k g/m2 [facility] ([facility]) Body height 63 [in_i] 63 [in_i] [facility] ([facility]) 5'3" Body weight 130.00 [lb_av] 130.00 [lb_av] DARLIN Thompson ([facility]) Oxygen saturation in Arterial blood by Pulse oximetry 97 % 97 % [facility] Respiratory rate 16 /min 16 /min [facility] Body temperature 36.67 Haley 36.67 Haley [facility] Heart rate 62 /min 62 /min [facility] Diastolic blood pressure 88 mm[Hg] 88 mm[Hg] [facility] Systolic blood pressure 150 mm[Hg] 150 mm[Hg] [facility] Body mass index (BMI) [Ratio] 23.03 kg/m2 23.03 kg/m2 [facility] Body weight 58.968 kg 58.968 kg [facility] Body height 160 cm 160 cm [facility] [place] body weight 115 [lb_av] 115 [lb_av] DARLIN Thompson ([facility]) Oxygen saturation in Arterial blood by Pulse oximetry 98 % 98 % DEVON[facility] ([facility]) Body temperature 98.1 [degF] 98.1 [degF] [facility] ([facility]) Respiratory rate 18 /min 18 /min [facility] ( [facility]) Heart rate 63 /min 63 /min [facility] ([facility]) Body mass index (BMI) [Ratio] 23.4 kg/m2 23.4 k g/m2 [facility] ([facility]) Body weight 132.25 [lb_av] 132.25 [lb_av] MEDEN T ([facility]) Body height 63 [in_i] 63 [in_i] [facility] ([facility]) 5'3" Diastolic blood pressure 74 mm[Hg] 74 mm[Hg] [facility] ([facility]) Systolic blood pressure 124 mm[Hg] 124 mm[Hg] M EDENT ([facility]) Diastolic blood pressure--sitting 78 mm[Hg] 78 mm[Hg] [facility] ([facility]) Systolic blood pressure--sitting 130 mm[Hg] 130 mm[Hg] [facility] ([facility]) Heart rate 67 /min 67 /min [facility] ([facility]) Body mass index (BMI) [Ratio] 24.3 kg/m2 24.3 k g/m2 [facility] ([facility]) Body height 63 [in_i] 63 [in_i] [facility] ([facility]) 5'3" Body weight 137.00 [lb_av] 137.00 [lb_av] [facility] T ([facility]) [place] body weight 115 [lb_av] 115 [lb_av] [facility] T ([facility]) Oxygen saturation in Arterial blood by Pulse oximetry 98 % 98 % [facility] ([facility]) Body temperature 98.8 [degF] 98.8 [degF] [facility] ([facility]) Respiratory rate 18 /min 18 /min [facility] ( [facility]) Heart rate 77 /min 77 /min [facility] ([facility]) Body mass index (BMI) [Ratio] 24.7 kg/m2 24.7 k g/m2 [facility] ([facility]) Body weight 139.50 [lb_av] 139.50 [lb_av] [facility] T ([facility]) Body height 63 [in_i] 63 [in_i] [facility] ([facility]) 5'3" Diastolic blood pressure 74 mm[Hg] 74 mm[Hg] [facility] ([facility]) Systolic blood pressure 128 mm[Hg] 128 mm[Hg] M EDENT ([facility]) [place] body weight 115 [lb_av] 115 [lb_av] [facility] T ([facility]) Oxygen saturation in Arterial blood by Pulse oximetry 99 % 99 % [facility] ([facility]) Body temperature 98.1 [degF] 98.1 [degF] [facility] ([facility]) Respiratory rate 18 /min 18 /min [facility] ( [facility]) Heart rate 70 /min 70 /min [facility] ([facility]) Body mass index (BMI) [Ratio] 24.4 kg/m2 24.4 k g/m2 [facility] ([facility]) Body weight 137.50 [lb_av] 137.50 [lb_av] [facility] T ([facility]) Body height 63 [in_i] 63 [in_i] [facility] ([facility]) 5'3" Diastolic blood pressure 78 mm[Hg] 78 mm[Hg] [facility] ([facility]) Systolic blood pressure 132 mm[Hg] 132 mm[Hg] M EDENT ([facility]) Oxygen saturation in Arterial blood by Pulse oximetry 100 % 100 % [facility] ([facility]) Body temperature 97.9 [degF] 97.9 [degF] [facility] ([facility]) Respiratory rate 18 /min 18 /min [facility] ( [facility]) Heart rate 53 /min 53 /min [facility] ([facility]) Body mass index (BMI) [Ratio] 24.2 kg/m2 24.2 k g/m2 [facility] ([facility]) Body weight 136.38 [lb_av] 136.38 [lb_av] [facility] T ([facility]) Body height 63 [in_i] 63 [in_i] [facility] ([facility]) 5'3" Diastolic blood pressure 80 mm[Hg] 80 mm[Hg] [facility] ([facility]) Systolic blood pressure 136 mm[Hg] 136 mm[Hg] M [facility] ([facility]) Diastolic blood pressure--sitting 68 mm[Hg] 68 mm[Hg] [facility] ([facility]) adult cuff, Ra Systolic blood pressure--sitting 120 mm[Hg] 120 mm[Hg] [facility] ([facility]) adult cuff, Ra Heart rate 71 /min 71 /min [facility] ([facility]) Body mass index (BMI) [Ratio] 23.7 kg/m2 23.7 k g/m2 [facility] ([facility]) Body height 63 [in_i] 63 [in_i] [facility] ([facility]) 5'3" Body weight 134.00 [lb_av] 134.00 [lb_av] [facility] T ([facility]) Oxygen saturation in Arterial blood by Pulse oximetry 99 % 99 % [facility]) Body temperature 98.1 [degF] 98.1 [degF] [facility]) Respiratory rate 18 /min 18 /min [facility] ( [facility]) Heart rate 49 /min 49 /min [facility] ([facility]) Body mass index (BMI) [Ratio] 23.8 kg/m2 23.8 k g/m2 [facility] ([facility]) Body weight 134.25 [lb_av] 134.25 [lb_av] [facility] T ([facility]) Body height 63 [in_i] 63 [in_i] [facility] ([facility]) 5'3" Diastolic blood pressure 64 mm[Hg] 64 mm[Hg] [facility] ([facility]) Systolic blood pressure 132 mm[Hg] 132 mm[Hg] M [facility]ENT ([facility]) Patient Treatment Plan of Care Planned Activity Planned Date Details Description Data Source (s) Amlodipine 5 MG Oral Tablet 04/14/2020 12:00:00 AM EST [facility] rivaroxaban 20 MG Oral Tablet 04/13/2020 12:00:00 AM EST [facility] rivaroxaban 15 MG Oral Tablet [facility] Diltiazem Hydrochloride 30 MG Oral Tablet [facility] Atenolol 25 MG Oral Tablet [facility]
--- NOTE | 2020-05-26 13:56 | REP ---
INDICATION: epigastric, RUQ abd pain. COMPARISON: None. TECHNIQUE: Right upper quadrant sonography. FINDINGS: Scanning through the right upper quadrant of the abdomen demonstrates a normal sized, thin-walled gallbladder without evidence of stone or polyp. Common bile duct is normal measuring 0.3 cm in greatest diameter. No focal liver lesion is seen. Liver size is normal. No pancreatic abnormality is observed. No right renal abnormality is seen. There is no evidence of ascites. The right kidney measures 10.9 x 5.4 x 3.7 cm. Liver texture is somewhat coarse but no focal liver lesion is seen. IMPRESSION: Negative right upper quadrant sonography. No acute abnormality. <Electronically signed by Livan Walters > 05/26/20 [id number]
[2020-05-26 14:34] LABS: HEMATOCRIT 42.4 % (36.0-47.0); HEMOGLOBIN 14.8 g/dl (12.0-15.5); MEAN CORPUSCULAR HEMOGLOBIN 31.6 pg (27.0-33.0); MEAN CORPUSCULAR VOLUME 90.6 fl (80.0-96.0); RED BLOOD COUNT 4.68 10^6/uL (4.00-5.40); WHITE BLOOD COUNT 8.2 10^3/uL (4.0-10.0)
[2020-05-26 14:35] LABS: BASO % 0.4 % (0.0-1.0); EOS % 0.5 % (0.0-3.0); LYMPH # 1.9 10^3/uL (1.5-5.0); LYMPH % 23.1 % (24.0-44.0); MEAN CORPUSCULAR HGB CONC 34.9 g/dl (32.0-36.5); MONO # 0.7 10^3/uL (0.0-0.8); MONO % 9.1 % (2.0-8.0); NEUTROPHILS # 5.4 10^3/uL (1.5-8.5); NEUTROPHILS % 66.5 % (36.0-66.0); PLATELET COUNT, AUTOMATED 262 10^3/uL (150-450)
--- NOTE | 2020-05-26 14:35 | REP ---
INDICATION: Abdominal Pain. COMPARISON: Comparison chest x-ray May 22, 2020.. TECHNIQUE: Three views including upright chest radiograph. FINDINGS: Upright chest radiograph is unremarkable. There is no evidence of infiltrate or free subdiaphragmatic air. Heart size is normal. Pulmonary vasculature is not increased. Pleural angles are sharp. Supine and erect views of the abdomen demonstrate a normal bowel gas pattern. The psoas margins and the flank stripes are intact. There is no evidence of mass, organomegaly, or pathologic calcification. There is a retained high density barium throughout the colon related the upper GI series dated 24 May 2020. IMPRESSION: Retained barium in the colon. No evidence of obstruction. No acute abnormality noted.. <Electronically signed by Livan Walters > 05/26/20 [id number]
[2020-05-26 14:45] LABS: INR 1.12; PROTHROMBIN TIME 14.7 SECONDS (12.5-14.3)
[2020-05-26 14:46] LABS: PARTIAL THROMBOPLASTIN TIME 33.6 SECONDS (24.2-38.5)
[2020-05-26 15:06] LABS: ALBUMIN 3.7 GM/DL (3.2-5.2); ALT/SGPT 43 U/L (12-78); AMYLASE 73 U/L (25-115); BILIRUBIN,DIRECT 0.1 MG/DL (0.0-0.2); BILIRUBIN,TOTAL 0.4 MG/DL (0.2-1.0); CK-MB VALUE MASS 1.4 NG/ML (<3.6); CPK CREATINE PHOSPHOKINASE 54 U/L (26-192); LIPASE 341 U/L (73-393); MB/CK RELATIVE INDEX 2.59 (< OR =4); TOTAL PROTEIN 6.6 GM/DL (6.4-8.2); TROPONIN I < 0.02 NG/ML (< 0.10)
[2020-05-26] MEDS ORDERED: ISOVUE-370 76% 100ML VIAL As Ordered ONE (16:04)
--- NOTE | 2020-05-26 17:43 | REPVR ---
PROCEDURE INFORMATION: Exam: CT Angiography Chest With Contrast Exam date and time: 05/26/2020 3:51 PM Age: 65 years old Clinical indication: Pain; Other: Epi; Additional info: Epigstric abd pain TECHNIQUE: Imaging protocol: Computed tomographic angiography of the chest with contrast. 3D rendering (Not supervised by radiologist): MIP and/or 3D reconstructed images were created by the technologist. Radiation optimization: All CT scans at this facility use at least one of these dose optimization techniques: automated exposure control; mA and/or kV adjustment per patient size (includes targeted exams where dose is matched to clinical indication); or iterative reconstruction. Contrast material: ISOVUE 370; Contrast volume: 100 ml; Contrast route: INTRAVENOUS (IV); COMPARISON: CR Abdomen,Flat Upright,PA CHEST 05/26/2020 2:11 PM FINDINGS: Pulmonary arteries: Normal. No pulmonary emboli. Aorta: The ascending aorta is ectatic at 34 mm. Lungs: Unremarkable. No consolidation. No masses. Pleural spaces: Unremarkable. No pneumothorax. No pleural effusion. Heart: Unremarkable. No cardiomegaly. No pericardial effusion. Lymph nodes: Unremarkable. No enlarged lymph nodes. Gallbladder and bile ducts: There may be cholelithiasis. Stomach and bowel: There is dense contrast in the colon. This is likely from an upper GI series of 2 days ago. Bones/joints: Unremarkable. No acute fracture. Soft tissues: Unremarkable. IMPRESSION: No acute findings. Electronically signed by: Devon Arzate On 05/26/2020 17:43:56 PM
[2020-05-26] MEDS ORDERED: LORazepam 0.5 MG TAB PO STA (18:08)
[2020-05-26] MEDS ORDERED: DICYCLOMINE 10 MG CAP PO ONE (18:30)
[2020-05-26] MEDS ORDERED: ATIV1TAB10 PO (19:50)
[2020-05-26 20:00] VITALS: BP 164/91
--- NOTE | 2020-05-27 08:15 | ECGEPIP ---
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
== END 2020-05-26 20:10 | disposition home or self-care (01) ==
LOC: M ED 12:11
DX: R10.9 Unspecified abdominal pain (principal); I10 Essential (primary) hypertension; F43.0 Acute stress reaction; F41.9 Anxiety disorder, unspecified; K58.9 Irritable bowel syndrome, unspecified; Z86.79 Personal history of other diseases of the circulatory system; Z88.1 Allergy status to other antibiotic agents; Z88.2 Allergy status to sulfonamides
CPT/HCPCS: 71275; 74021; 76705; 80047; 80076; 82150; 82550; 82553; 83605; 83690; 84484; 85025; 85610; 85730; 93005; 94760; 96374; 99285; C9113; Q9967

== ENCOUNTER 2020-05-30 03:44 | Emergency (ER) | payer MEDICARE, OTHER ==
[~2020-05-30] VITALS: Ht 160 cm; Wt 59.1 kg
[~2020-05-30 03:44] MED LIST changes: +ATIV1TAB10 PO
--- OUTSIDE RECORDS SUMMARY | 2020-05-30 03:55 | CCD | Continuity of Care Document ---
Author Organization Unknown Address Unknown Phone Unavailable Care Team Providers Care Animal Therapist Name Role Phone Drea Garcia D.O. AUTM Lara Lopez M.D. AUTM [phone] Problems Active Problems Provider Date Paroxysmal atrial [...] caps in the morning Unknown Berberine Complex [phone] Capsules Unknown Chlorella Capsules Unknown Vitamin D-3 [...] mouth as needed for diarrhea. 90caps Yobani LariosOSaray 04/06/2020 - 04/07/2020 Immunizations Description No Information Available Vital Signs Date Vital Result Comment 04/21/2020 11:05am BP Systolic 148 mmHg BP Diastolic 84 mmHg Height 63 inches 5'3" Weight 130.38 lb BMI (Body Mass Index) 23.1 kg/m2 Heart Rate 57 /min Respiratory Rate 18 /min Body Temperature 97.8 F O2 % BldC Oximetry 98 % [place] Body Weight 115 lb 04/07/2020 10:57am BP Systolic 124 mmHg BP Diastolic 74 mmHg Height 63 inches 5'3" Weight 132.25 lb BMI (Body Mass Index) 23.4 kg/m2 Heart Rate 63 /min Respiratory Rate 18 /min Body Temperature 98.1 F O2 % BldC Oximetry 98 % [place] Body Weight 115 lb Results Test Acquired Date Facility Test Result H/L Range Note Istat Chem8+ Panel [address] [facility] (Registration) [address] [place] [address] [phone] iSTAT HCT 41.0 % Normal 38.0-51.0 iSTAT Glucose 92 mg/dL Normal 70-105 iSTAT Sodium 140 mEq/L Normal 136-145 iSTAT Potassium 4.1 mEq/L Normal 3.5-5.1 iSTAT CA++ 4.7 mg/dL Normal 4.5-5.3 iSTAT Chloride 104 mEq/L Normal 98-109 iSTAT Co2 27.0 MM/L Normal 23.0-27.0 iSTAT BUN 18 mg/dL Normal 8-26 iSTAT Creatinine 0.7 mg/dL Normal 0.6-1.3 CBC With Differential 05/22/[address] [facility] (Registration) [address] [place] [address] [phone] White Blood Count 7.6 10 Normal 4.0-10.0 [...] 36.0-66.0 Lymph % 25.7 % Normal 24.0-44.0 Vermillion % 9.6 % High 2.0-8.0 Eos % 0.5 % Normal 0.0-3.0 Baso % 0.4 % Normal 0.0-1.0 Immature Granulocyte % 0.4 % Normal 0-3.0 Nucleated Red Blood Cell % 0.0 % Normal 0-0 Neutrophils # 4.8 10 Normal 1.5-8.5 Lymph # 2.0 10 Normal 1.5-5.0 Vermillion # 0.7 10 Normal 0.0-0.8 Eos # 0.0 10 Normal 0.0-0.5 Baso # 0.0 10 Normal 0.0-0.2 Cardiac Marker Panel 05/22/[address] [facility] (Registration) [address] [place] [address] [phone] CPK Creatine Phosphokinase 58 U/L Normal 26-19 2 CK-MB Value Mass 1.2 NG/ML Normal <3.6 MB/CK Relative Index 2.07 Normal < Or =4 1 Troponin I < 0.02 NG/ML Normal < 0.10 2 Liver Profile 05/22/[address] [facility] (Registration) [address] [place] [address] [phone] Ast/Sgot 33 U/L Normal 7-37 Alt/SGPT 49 U/L Normal 12-78 Alkaline Phosphatase 101 U/L Normal 45-117 Bilirubin,Total 0.4 mg/dL Normal 0.2-1.0 Bilirubin,Direct 0.1 mg/dL Normal 0.0-0.2 Total Protein 6.5 GM/DL Normal 6.4-8.2 Albumin 3.7 GM/DL Normal 3.2-5.2 Albumin/Globulin Ratio 1.3 Normal 1.2-2.2 Basic Metabolic Profile 05/22/[address] [facility] (Registration) [address] [place] [address] [phone] Glucose, Fasting 77 mg/dL Normal 70-100 Blood [...] mg/dL Normal 8.8-10.2 Laboratory test finding 05/22/[address] [facility] (Registration) [address] [place] [address] [phone] Lipase 371 U/L Normal 73-393 Laboratory test finding 04/14/[address] [facility] (Registration) [address] [place] [address] [phone] iSTAT Troponin 0.38 NG/ML High 0.00-0.08 Istat Chem8+ Panel 04/14/[address] [facility] (Registration) [address] [place], [place] [address] [phone] iSTAT HCT 48.0 % Normal 38.0-51.0 iSTAT Glucose 144 mg/dL High 70-105 iSTAT Sodium 138 mEq/L Normal 136-145 iSTAT Potassium 3.8 mEq/L Normal 3.5-5.1 iSTAT CA++ 4.4 mg/dL Low 4.5-5.3 iSTAT Chloride 104 mEq/L Normal 98-109 iSTAT Co2 25.0 MM/L Normal 23.0-27.0 iSTAT BUN 23 mg/dL Normal 8-26 iSTAT Creatinine 0.7 mg/dL Normal 0.6-1.3 CBC With Differential 04/14/[address] [facility] (Registration) [address] [place] [address] [phone] White Blood Count 9.3 10 Normal 4.0-10.0 [...] 36.0-66.0 Lymph % 20.4 % Low 24.0-44.0 Vermillion % 9.3 % High 0.0-5.0 Eos % 0.9 % Normal 0.0-3.0 Baso % 0.3 % Normal 0.0-1.0 Immature Granulocyte % 0.4 % Normal 0-3.0 Nucleated Red Blood Cell % 0.0 % Normal 0-0 Neutrophils # 6.4 10 Normal 1.5-8.5 Lymph # 1.9 10 Normal 1.5-5.0 Vermillion # 0.9 10 High 0.0-0.8 Eos # 0.1 10 Normal 0.0-0.5 Baso # 0.0 10 Normal 0.0-0.2 Laboratory test finding 04/10/[address] [facility] (Registration) [address] [place] [address] [phone] Thyroid Stimulating Hormone 2.030 uIU/ML Normal 0. 358-3.740 Complete Blood Count 04/10/[address] [facility] (Registration) [address] [place] [address] [phone] White Blood Count 5.9 10 Normal 4.0-10.0 [...] % Normal 0-0 Istat Chem8+ Panel 04/10/[address] [facility] (Registration) [address] [place] [address] [phone] iSTAT HCT 50.0 % Normal 38.0-51.0 iSTAT Glucose 132 mg/dL High 70-105 iSTAT Sodium 140 mEq/L Normal 136-145 iSTAT Potassium 4.1 mEq/L Normal 3.5-5.1 iSTAT CA++ 4.7 mg/dL Normal 4.5-5.3 iSTAT Chloride 101 mEq/L Normal 98-109 iSTAT Co2 29.0 MM/L High 23.0-27.0 iSTAT BUN 20 mg/dL Normal 8-26 iSTAT Creatinine 0.8 mg/dL Normal 0.6-1.3 Laboratory test finding 04/10/[address] [facility] (Registration) [address] [place] [address] [phone] iSTAT Troponin 0.00 NG/ML Normal 0.00-0.08 Istat PT/Inr 04/10/[address] [facility] (Registration) [address] [place] [address] [phone] iSTAT Protime Seconds 15.8 seconds High 12.1-14. 4 iSTAT Inr 1.3 Normal Cardiac Marker Panel 04/10/[address] [facility] (Registration) [address] [place] [phone] CPK Creatine Phosphokinase 47 U/L Normal 26-19 2 CK-MB Value Mass 1.2 NG/ML Normal <3.6 MB/CK Relative Index 2.55 Normal < Or =4 4 Troponin I < 0.02 NG/ML Normal < 0.10 5 Comprehensive Metabolic Profil 04/10/[address] [facility] (Registration) [address] [place] [address] [phone] Glucose, Fasting 84 mg/dL Normal 70-100 Blood [...] 1.5 Normal 1.2-2.2 Complete Blood Count 04/10/[address] [facility] (Registration) [address] [place] [address] [phone] White Blood Count 5.9 10 Normal 4.0-10.0 [...] result in chart CBC With Differential 03/30/[address] [facility] (Registration) [address] [place] [address] [phone] White Blood Count 10.1 10 High 4.0-10.0 [...] 36.0-66.0 Lymph % 16.2 % Low 24.0-44.0 Vermillion % 9.0 % High 0.0-5.0 Eos % 0.1 % Normal 0.0-3.0 Baso % 0.4 % Normal 0.0-1.0 Immature Granulocyte % 0.3 % Normal 0-3.0 Nucleated Red Blood Cell % 0.0 % Normal 0-0 Neutrophils # 7.5 10 Normal 1.5-8.5 Lymph # 1.6 10 Normal 1.5-5.0 Vermillion # 0.9 10 High 0.0-0.8 Eos # 0.0 10 Normal 0.0-0.5 Baso # 0.0 10 Normal 0.0-0.2 Prothrombin Time/Inr 03/30/[address] [facility] (Registration) [address] [place] [address] [phone] Prothrombin Time 14.3 seconds High 12.5-14.3 Inr 1.09 Normal 7 Laboratory test finding 03/30/[address] [facility] (Registration) [address] [place] [address] [phone] Partial Thromboplastin Time 30.0 seconds Normal 24 .2-38.5 Cardiac Marker Panel 03/30/[address] [facility] (Registration) [address] [place] [address] [phone] CPK Creatine Phosphokinase 82 U/L Normal 26-19 2 CK-MB Value Mass 3.0 NG/ML Normal <3.6 MB/CK Relative Index 3.66 Normal < Or =4 8 Troponin I < 0.02 NG/ML Normal < 0.10 9 Liver Profile 03/30/[address] [facility] (Registration) [address] [place] [address] [phone] Ast/Sgot 63 U/L High 7-37 Alt/SGPT 100 U/L High 12-78 Alkaline Phosphatase 103 U/L Normal 45-117 Bilirubin,Total 0.6 mg/dL Normal 0.2-1.0 Bilirubin,Direct 0.2 mg/dL Normal 0.0-0.2 Total Protein 6.1 GM/DL Low 6.4-8.2 Albumin 3.6 GM/DL Normal 3.2-5.2 Albumin/Globulin Ratio 1.4 Normal 1.2-2.2 Basic Metabolic Profile 03/30/[address] [facility] (Registration) [address] [place] [address] [phone] Glucose, Fasting 80 mg/dL Normal 70-100 Blood [...] mg/dL Low 8.8-10.2 Laboratory test finding 03/30/[address] [facility] (Registration) [address] [place] [address] [phone] Thyroid Stimulating Hormone 2.050 uIU/ML Normal 0. 358-3.740 Free T4 1.30 ng/dL Normal 0.76-1.46 Digoxin Level 0.1 NG/ML Low 0.5-2.0 Laboratory test finding 03/30/[address] [facility] (Registration) [address] [place] [address] [phone] Magnesium Level 2.3 mg/dL Normal 1.8-2.4 Ethyl Alcohol (Ethanol) 0.003 % Normal 0.000-0.010 1 DIAGNOSIS CRITERIA MMB ng/ml Relative Index (RI) NON-AMI < or = 5 N/A NGUYEN ZONE > 5 < or = 4 AMI > 5 > 4 2 Troponin I Reference Interva l for Siemens [place] LOCI: 99th Percentile= 0.00-0.045 ng/ml Risk Stratification: [...] Little GFR Left ESRD GFR <15 on FINE HAIRER 4 DIAGNOSIS CRITERIA MMB ng/ml Relative Index (RI) NON-AMI < or = 5 N/A NGUYEN ZONE > 5 < or = 4 AMI > 5 > 4 5 Troponin I Reference Interva l for Siemens [place] LOCI: 99th Percentile= 0.00-0.045 ng/ml Risk Stratification: [...] Little GFR Left ESRD GFR <15 on FINE HAIRER 7 THERAPUTIC HUMAN INR VALUES INDICATIONS NORMAL [...] 9 Troponin I Reference Interva l for [place] LOCI: 99th Percentile= 0.00-0.045 ng/ml Risk Stratification: [...] Little GFR Left ESRD GFR <15 on FINE HAIRER Procedures Date Code Description Status 04/07/2020 28410 Electrocardiogram Complete Compl eted Medical Devices Description No Information Available Encounters Type Date Location Provider Dx Diagnosis Office Visit 04/21/2020 11:00a [facility] Drea Garcia D.O. 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 04/21/2020 K58.2 Mixed irritable bowel syndrome J berry Hober, D.O. 04/21/2020 Z79.01 correction (current) use of antic oagulants Drea Vera D.O. 04/21/2020 I48.0 Paroxysmal atrial fibrillation Roz Garcia D.O. 04/21/2020 F41.1 Generalized anxiety disorder Radha Garcia D.O. 04/21/2020 I10 Essential (primary) hypertension Drea Garcia D.O. 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 at [facility] Functional Status Description No Information Available Mental [...] colonoscopy Patient Notified 05/30/2020 [facility] [address] [place] [address] [phone]
--- OUTSIDE RECORDS SUMMARY | 2020-05-30 03:57 | CCD ---
Author Author [facility] Organization [facility] Address Unknown Phone Unavailable Care Team Providers Care Nuclear Unit Operator Name Role Phone ANTECOL, Sabine YOUNG [...] Unavailable Unavailable MARK-DON, DAVE DO Unavailable Unavailable AMRK-DON, DAVE DO Unavailable Unavailable MARK-DON, DAVE DO [...] Unavailable Unavailable MARK-DON, DAVE DO Unavailable Unavailable MARK-DNO, DAVE DO Unavailable Unavailable MARK-DON, DAVE DO [...] A Nico PA Unavailable Unavailable O'corby, A Ncio PA Unavailable Unavailable O'corby, A Nico PA [...] is protected by Article 27-F of the [place] Public Health law. If you continue you may have access to information: Regarding HIV / AIDS; Provided by facilities licensed or operated by the [facility] Office of Mental Health; or Provided by the [facility] Office for People With Developmental Disabilities. If such information is present, then the following [facility] mandated warning applies: This information has [...] law may result in a fine or [place] health [place] sentence or both. A general authorization for the release of medical or other information is NOT sufficient authorization for further disc losure. Allergies and Adverse Reactions Type Description Substance Reaction Status Data Source(s ) Propensity to adverse reactions SULFA ANTIBIOTICS Sulfa Antibiotics Rash Low Active [facility] Low Propensity to adverse reactions LACTOSE INTOLERANCE (GI) [place] Intolerance (Gi) Active [facility] Propensity to adverse reactions GLUTEN MEAL Wheat gluten extract Active [facility] Propensity to adverse reactions GARLIC allyl sulfide A ctive [facility] Family History Family Member Name Family Member Gender Family Member Status Date o f Status Description Data Source(s) Unknown Male Problem [facility] ([facility]) Unknown Male Problem [facility] ([facility]) at age 38 Encounters Encounter Providers Location Date Indications Data Source(s ) Outpatient Attender: DAVE AMBROSE DO [facility] 04/21/2020 10:00:00 AM EST [facility] ([facility]) Outpatient Attender: HANNAH GALARZA MD Main Office 04/19/2020 11:00:00 AM EST [facility] ([facility]) Inpatient Attender: Ruchi Harris MDAdmitter: Ruchi douglas MD [email or web address] 04/11/2020 02:03:45 PM EST - 04/13/2020 01:50:00 PM EST [facility] Patient discharged. Outpatient Attender: Nico PATIÑO [facility] 04/07/2020 09:40:00 AM EST [facility] ([facility]) Outpatient Attender: Robina PATIÑO Main Office 12/03/2019 02:30:0 0 PM EDT [facility] ([facility]) Outpatient Attender: DAVE AMBROSE [facility] 06/24/2019 10:30:00 AM EDT [facility] ([facility]) Outpatient Attender: DAVE AMBROSE [facility] 06/05/2019 10:00:00 AM EST [facility] ([facility]) Outpatient Attender: DAVE AMBROSE [facility] 05/08/2019 12:20:00 PM EST [facility] ([facility]) Outpatient Attender: Robina PATIÑO Main Office 04/29/2019 12:00:0 0 PM EST [facility] ([facility]) [facility] 12:30:00 PM EST [facility] ([facility]) Medications Medication Brand Name Start Date Product Form Dose Route Admi nistrative Instructions Pharmacy Instructions Status Indications Reaction Description Data Source(s) 0.5 mg 05/27/2020 12:00:00 AM EST tablet 3 TAKE ONE TABLET BY MOUTH EVERY DAY NEEDED FOR ANXIETY MAXIMUM DAILY DOSE = 1 TABLET TAKE ONE TABLET BY MOUTH EVERY DAY NEEDED FOR ANXIETY MAXIMUM DAILY DOSE = 1 TABLET SOLD: 05/27/2020 [facility] 50 mg 05/07/2020 12:00:00 AM EST tablet 30 TAKE TWO TABLETS BY MOUTH EVERY DAY NEEDED FOR ATRIAL FIBRILATION TAKE TWO TABLETS BY MOUTH EVERY DAY NEEDED FOR ATRIAL FIBRILATION SOLD: 2020 [facility] Bisoprolol Fumarate 5 MG Oral Tablet Bisoprolol Fumarate 12:00:00 AM EST ORAL active [facility] ([facility]) 5 mg 05/05/2020 12:00:00 AM EST tablet 60 TAKE ONE TABLET BY MOUTH TWICE A DAY FOR RESTING HR>90 BPM TAKE ONE TABLET BY MOUTH TWICE A DAY FOR RESTING HR>90 BPM SOLD: 05/06/2020 [facility] Atenolol 25 MG Oral Tablet Atenolol 05/02/2020 12:00:00 AM EST ORAL completed [facility] ([facility]) Atenolol 25 MG Oral Tablet Atenolol 04/27/2020 12:00:00 AM EST ORAL completed [facility] ([facility]) 80 mg 04/20/2020 12:00:00 AM EST tablet 90 TAKE ONE TABLET BY MOUTH AT BEDTIME TAKE ONE TABLET BY MOUTH AT BEDTIME SOLD: 04/21/2020 [facility] Atenolol 25 MG Oral Tablet ATENOLOL 04/20/2020 12:00:00 AM EST tablet 180 TAKE ONE TABLET BY MOUTH TWICE A DAY TAKE ONE TABLET BY MOUTH TWICE A DAY SOLD: 04/21/2020 [facility] valsartan 80 MG Oral Tablet Valsartan 04/19/2020 12:00:00 AM EST ORAL active [facility] ([facility]) Flecainide Acetate 50 MG Oral Tablet Flecainide Acetate 03/2021 12:00:00 AM EST ORAL active [facility] ([facility]) Atenolol 25 MG Oral Tablet Atenolol 04/19/2020 12:00:00 AM EST ORAL completed [facility] ([facility]) 50 mg 04/15/2020 12:00:00 AM EST tablet 60 TAKE ONE TABLET BY MOUTH TWICE A DAY TAKE ONE TABLET BY MOUTH TWICE A DAY SOLD: 04/15/2020 [facility] Atenolol 50 MG Oral Tablet ATENOLOL 04/15/2020 12:00:00 AM EST tablet 30 TAKE ONE TABLET BY MOUTH EVERY DAY TAKE ONE TABLET BY MOUTH EVERY DAY SOLD: 04/15/2020 [facility] 750 mg/5 mL 04/15/2020 12:00:00 AM EST suspension 50 TAKE ONE TEASPOONFUL (5ML) BY MOUTH TWICE A DAY WITH FOOD , DO NOT TAKE COQ10 TAKE ONE TEASPOONFUL (5ML) BY MOUTH TWICE A DAY WITH FOOD , DO NOT TAKE COQ10 SOLD: 04/15/2020 [facility] Flecainide Acetate 50 MG Oral Tablet Flecainide Acetate 10/2020 12:00:00 AM EST ORAL completed [facility] ([facility]) Atenolol 50 MG Oral Tablet Atenolol 04/14/2020 12:00:00 AM EST ORAL completed [facility] ([facility]) Mirtazapine 15 MG Oral Tablet Mirtazapine 04/14/2020 12:00:00 AM EST completed [facility] ([facility]) rivaroxaban 20 MG Oral Tablet [Xarelto] Xarelto 04/14/2020 12:00:0 0 AM EST ORAL active [facility] ([facility]) Amlodipine 5 MG Oral Tablet amLODIPine (NORVASC) 5 MG tablet amLODIPine (NORVASC) 5 MG tablet 04/14/2020 12:00:00 AM EST 5 mg Oral active Take 1 tablet (5 mg total) by mouth daily [facility] 5 mg 04/13/2020 12:00:00 AM EST tablet 30 TAKE ONE TABLET BY MOUTH EVERY DAY TAKE ONE TABLET BY MOUTH EVERY DAY SOLD: 05/03/2020 [facility] 20 mg 04/13/2020 12:00:00 AM EST tablet 30 TAKE ONE TABLET BY MOUTH EVERY DAY WITH DINNER TAKE ONE TABLET BY MOUTH EVERY DAY WITH DINNER SOLD: [facility] 20 mg 04/13/2020 12:00:00 AM [...] mg total) by mouth daily with dinner [facility] 2 ML Midazolam 1 MG/ML Injection midazolam (VERSED) in jection midazolam (VERSED) injection 04/12/2020 02:11:53 PM EST active As needed, Starting Sat04/12/20 at 1411, Intra-Procedure [facility] Medication administered onsite fentaNYL Citrate (PF) (SUBLIMAZE) injection 9531-5064-88 04/12/2020 02:11:40 PM EST active As neede d, Starting Tu04/12/20 at 1411, Intra-Procedure [facility] Medication administered onsite Diltiazem Hydrochloride 60 MG Oral Tablet diltiazem (C ARDIZEM) tablet 60 mg diltiazem (CARDIZEM) tablet 60 mg 04/11/2020 06:00:00 PM EST 60 mg Oral active 60 mg, Oral, Every 6 hours (scheduled), First dose on Sat04/11/20 at 1800 [facility] Medication administered onsite rivaroxaban 20 MG Oral Tablet rivaroxaban (XARELTO) ta blet 20 mg rivaroxaban (XARELTO) tablet 20 mg 04/11/2020 06:00:00 PM EST 20 mg Oral active 20 mg, Oral, Daily with dinner, First dose on Sat04/11/20 at 1800 [facility] Medication administered onsite ondansetron (ZOFRAN) injection 4 mg 45164-392-68 04/11/2020 03:32:1 5 PM EST 4 mg Intravenous active 4 mg, In travenous, Every 4 hours PRN, nausea, vomiting, Starting Sat04/11/20 at 1532 [facility] Medication administered onsite Acetaminophen 325 MG Oral Tablet acetaminophen (TYLENO L) 325 MG tablet 650 mg acetaminophen (TYLENOL) 325 MG tablet 650 mg 04/11/2020 03:32:15 PM EST 650 mg Oral active 650 mg, Or al, Every 4 hours PRN, mild pain (1-3), headaches, Starting Sat04/11/20 at 1532
"Maximum dose of acetaminophen is 4,000 mg from all sources in 24 hours."
[facility] Medication administered onsite 60 mg 04/11/2020 12:00:00 [...] AM EST ORAL completed [facility] ([facility]) 30 mg 04/04/2020 12:00:00 AM EST tablet 120 TAKE ONE TABLET BY MOUTH FOUR TIMES A DAY TAKE ONE TABLET BY MOUTH FOUR TIMES A DAY SOLD: 04/04/2020 [facility] Diltiazem Hydrochloride 30 MG Oral Tablet Diltiazem HCL 04/04/2020 12:00:00 AM EST ORAL completed [facility] ([facility]) 24 HR Diltiazem Hydrochloride 120 MG Extended [...] EST ORAL completed [facility] ([facility]) 24 HR Diltiazem Hydrochloride 300 MG Extended Release Oral Capsule Diltiazem HCL ER Beads 03/31/2020 12:00:00 AM EST ORAL completed [facility] ([facility]) 20 mg 10/12/2019 12:00:00 AM EDT tablet [...] Doxycycline Monohydrate 100 MG Oral Capsule Doxycycline [place] hydrate 04/28/2019 12:00:00 AM EST ORAL active M [facility] ([facility]) Atenolol 25 MG Oral Tablet Atenolol 04/28/2019 12:00:00 AM EST active [facility] ([facility] 100 mg 03/30/2019 12:00:00 AM EST capsule [...] by mouth 4 (four) times a day [facility] rivaroxaban 15 MG Oral Tablet rivaroxaban (XARELTO) 15 MG TABS rivaroxaban (XARELTO) 15 MG TABS 15 mg Oral aborted [place] 15 mg by mouth daily [facility] Atenolol 25 MG Oral Tablet atenolol (TENORMIN) 25 MG t ablet atenolol (TENORMIN) 25 MG tablet 25 mg Oral aborted Take 25 mg by mouth daily [facility] Insurance Providers Payer name Policy type / Coverage type Policy ID Covered green party ID Covered green party's relationship to saldaña Policy Saldaña Plan Information UMR [facility] [id number] SP [id number] MEDICARE [id number] SP [id number] UMR [facility] [id number] SP [id number] UMR O [id number] S [id number] MEDICARE C [id number] S [id number] MEDICARE [id number] MEDICARE [id number] Regla [id number] Umr Commercial [id number] Self [id number] UMR [facility] [id number] SP [id number] Umr Commercial [id number] Self [id number] Umr Medigap Part B [id number] Self [id number] [place] [facility] Ppo Commercial [id number] Self [id number] Umr Medigap Part B [id number] Self [id number] Umr Commercial [id number] Self [id number] Umr Commercial [id number] Self [id number] Umr Commercial [id number] Self [id number] Umr Commercial [id number] Self [id number] Umr Commercial [id number] Self [id number] Umr Commercial [id number] Self [id number] Umr Commercial [id number] Self [id number] Umr Commercial [id number] Self [id number] Umr Commercial [id number] Self [id number] [id number] Umr Commercial [id number] Self [id number] [facility] [id number] S [id number] Umr Commercial [id number] Self [id number] Umr Medigap Part B [id number] Self [id number] Umr Medigap Part B [id number] Self [id number] Umr Commercial [id number] Self [id number] [id number] Umr Commercial [id number] Self [id number] [id number] Umr Commercial [id number] Self [id number] [id number] Umr Commercial [id number] Self [id number] [id number] Umr Commercial [id number] Self [id number] [id number] Umr Commercial [id number] Self [id number] 3400 Umr Commercial [id number] Self [id number] [id number] Umr Commercial [id number] Self [id number] 3400 Umr Commercial [id number] Self [id number] 3400 Umr Commercial [id number] Self [id number] [id number] Umr Medigap Part B [id number] Self [id number] [facility] [id number] SP [id number] [place] [facility] Ppo Commercial [id number] Self [id number] [employer]OM[employer] COMM SELF [id number] S [id number] Problems, Conditions, and Diagnoses Code Display Name Description Problem Type Effective Dates Data Source(s) 229958851 Paroxysmal atrial fibrillation Paroxysmal atrial fibri llation Problem 04/19/2020 12:00:00 AM EST [facility] ([facility]) [id number] Essential hypertension Essential hypertension Problem 04/19/2020 12:00:00 AM EST [facility] ([facility]) I48.3 Typical atrial flutter Typical atrial flutter [id number] 04/11/2020 12:00:00 AM [facility] I48.92 Atrial flutter Atrial flutter [id number] 04/11/2020 12:00: 00 AM [facility] I48.3 Typical atrial flutter Typical atrial flutter Diagnosi s 04/11/2020 02:03:45 PM [facility] I48.92 Unspecified atrial flutter Unspecified atrial flutter Diagnosis 04/11/2020 02:03:45 PM [facility] Surgeries/Procedures Procedure Description Date Indications Data Source(s) ECG ROUTINE ECG W/LEAST 12 LDS W/I&R 04/19/2020 12:00: 00 AM EST [facility] ([facility]) Arterial Pressure Waveform Analysis For Assessment Of Centra l Art 04/19/2020 12:00:00 AM EST [facility] ([facility]) BLOOD COUNT COMPLETE AUTOMATED CBC Routine 04/13/2020 4:23 A M EST 04/13/2020 09:23:00 AM EST [facility] BASIC METABOLIC PANEL CALCIUM TOTAL BASIC METABOLIC PANEL Routi ne 04/13/2020 4:23 AM EST 04/13/2020 09:23:00 AM EST [facility] EP STUDY EP STUDY Routine 04/12/2020 2:29 PM EST Typical atrial flutter 04/12/2020 07:29:52 PM EST Typical atrial flutter [facility] Typical atrial flutter ECHO TTHRC R-T 2D W/WOM-MODE COMPL SPEC&COLR DOP ECHOCARDIO GRAM TRANSTHORACIC Routine 04/12/2020 7:30 AM EST 04/12/2020 12:30:00 PM EST [facility] ECG ROUTINE ECG W/LEAST 12 LDS TRCG ONLY W/O I&R ECG 12-LEAD Routine 04/12/2020 6:35 AM EST 04/12/2020 11:35:16 AM EST [facility] BLOOD COUNT COMPLETE AUTOMATED CBC Routine 04/12/2020 5:19 A M EST 04/12/2020 10:19:00 AM EST [facility] BASIC METABOLIC PANEL CALCIUM TOTAL BASIC METABOLIC PANEL Routi ne 04/12/2020 5:19 AM EST 04/12/2020 10:19:00 AM EST [facility] THROMBOPLASTIN TIME PARTIAL PLASMA/WHOLE BLOOD APTT Routine 04/11/2020 2:55 PM EST 04/11/2020 07:55:00 PM EST [facility] PROTHROMBIN TIME PROTIME-INR Routine 04/11/2020 2:55 PM EST 04/11/2020 07:55:00 PM EST [facility] BLOOD COUNT COMPLETE AUTOMATED CBC Routine 04/11/2020 2:55 P M EST 04/11/2020 07:55:00 PM EST [facility] COMPREHENSIVE METABOLIC PANEL COMPREHENSIVE METABOLIC PANEL Rou elder 04/11/2020 2:55 PM EST 04/11/2020 07:55:00 PM EST [facility] ECG ROUTINE ECG W/LEAST 12 LDS W/I&R ECG 12-LEAD Routine 04/11/2020 2:01 PM EST 04/11/2020 07:01:27 PM EST [facility] Electrocardiogram Complete 04/07/2020 12:00:00 AM EST [facility] ([facility]) ECG ROUTINE ECG W/LEAST 12 LDS W/I&R 12/03/2019 12:00: 00 AM EDT [facility] ([facility]) Omt 7-8 Body Regions 06/24/2019 12:00:00 AM EDT [facility] ([facility]) Omt 7-8 Body Regions 06/05/2019 12:00:00 AM EST [facility] ([facility]) Omt 7-8 Body Regions 05/08/2019 12:00:00 AM EST [facility] ([facility]) ECG ROUTINE ECG W/LEAST 12 LDS W/I&R 04/29/2019 12:00: 00 AM EST [facility] ([facility]) Omt 7-8 Body Regions 04/07/2019 12:00:00 AM EST [facility] ([facility]) Results ID Date Data Source [id number] 2020 01:51:00 PM EST [facility] ([facility]) Name Value Range Interpretation Code Description Data Kathi rce(s) Supporting Document(s) Laboratory test finding (navigational concept) 41.0 % 3 8.0-51.0 Normal (applies to non-numeric results) [facility] ([facility]) Laboratory test finding (navigational concept) 140 meq/L 1 36-145 Normal (applies to non-numeric results) [facility] ([facility]) Laboratory test finding (navigational concept) 92 mg/dL 7 0-105 Normal (applies to non-numeric results) [facility] ([facility]) Laboratory test finding (navigational concept) 104 meq/L 9 8-109 Normal (applies to non-numeric results) [facility] ([facility]) Laboratory test finding (navigational concept) 4.7 mg/dL 4 .5-5.3 Normal (applies to non-numeric results) [facility] ([facility]) Laboratory test finding (navigational concept) 4.1 meq/L 3 .5-5.1 Normal (applies to non-numeric results) [facility] ([facility]) Laboratory test finding (navigational concept) 18 mg/dL 8 -26 Normal (applies to non-numeric results) [facility]) Laboratory test finding (navigational concept) 27.0 MM/L 2 3.0-27.0 Normal (applies to non-numeric results) [facility] ([facility]) Laboratory test finding (navigational concept) 0.7 mg/dL 0 .6-1.3 Normal (applies to non-numeric results) [facility] ([facility]) ID Date Data Source [id number] 05/22/2020 04:48:00 PM EST [facility] ([facility]) Name Value Range Interpretation Code Description Data Kathi rce(s) Supporting Document(s) White Blood Count 7.6 10 4.0-10.0 Normal (applies to non-numeri c results) [facility] ([facility]) Hematocrit 42.5 % 36.0-47.0 Normal (applies to non-numeric resul ts) [facility] ([facility]) Hemoglobin 14.7 g/dL 12.0-15.5 Normal (applies to non-numeric resul ts) [facility] ([facility]) Red Blood Count 4.74 10 4.00-5.40 Normal (applies to non-numeric results) [facility] ([facility]) Mean Corpuscular HGB Conc 34.6 g/dL 32.0-36.5 Normal (applies to non-numeric results) [facility] ([facility]) Mean Corpuscular Volume 89.7 fl 80.0-96.0 Normal ( applies to non-numeric results) [facility] ([facility]) Mean Corpuscular Hemoglobin 31.0 pg 27.0-33.0 Norm al (applies to non-numeric results) [facility] ([facility]) Neutrophils % 63.4 % 36.0-66.0 Normal (applies to non-numeric re sults) [facility] ([facility]) Red Cell Distribution Width 12.0 % 11.5-14.5 Norm al (applies to non-numeric results) [facility] ([facility]) Platelet Count, Automated 249 10 150-450 Normal (applies to non-numeric results) [facility] ([facility]) [place] % 9.6 % 2.0-8.0 Above high normal [facility] ([facility]) Eos % 0.5 % 0.0-3.0 Normal (applies to non-numeric resul ts) [facility] ([facility]) Lymph % 25.7 % 24.0-44.0 Normal (applies to non-numeric resul ts) [facility] ([facility]) Baso % 0.4 % 0.0-1.0 Normal (applies to non-numeric resul ts) [facility] ([facility]) Immature Granulocyte % 0.4 % 0-3.0 Normal (applies to non-n umeric results) [facility] ([facility]) Nucleated Red Blood Cell % 0.0 % 0-0 Normal (applies to n on-numeric results) [facility] ([facility]) Neutrophils # 4.8 10 1.5-8.5 Normal (applies to non-numeric re sults) [facility] ([facility]) [place] # 0.7 10 0.0-0.8 Normal (applies to non-numeric resul ts) [facility] ([facility]) Lymph # 2.0 10 1.5-5.0 Normal (applies to non-numeric resul ts) [facility] ([facility]) Eos # 0.0 10 0.0-0.5 Normal (applies to non-numeric resul ts) [facility] ([facility]) Baso # 0.0 10 0.0-0.2 Normal (applies to non-numeric resul ts) [facility] ([facility]) ID Date Data Source [id number] 05/22/2020 04:47:00 PM EST [facility] ([facility]) Name Value Range Interpretation Code Description Data Kathi rce(s) Supporting Document(s) Lipase [Enzymatic activity/volume] in Serum or Plasma 371 U/L 73-393 Normal (applies to non-numeric results) [facility] ID Date Data Source [id number] 05/22/2020 04:47:00 PM EST [facility] ([facility]) Name Value Range Interpretation Code Description Data Kathi rce(s) Supporting Document(s) Glucose, Fasting 77 mg/dL 70-100 Normal (applies to non-numeric results) [facility] ([facility]) Creatinine For GFR 0.86 mg/dL 0.55-1.30 Normal (applies to non -numeric results) [facility] ([facility]) Blood Urea Nitrogen 21 mg/dL 7-18 Above high normal [facility] ([facility]) Glomerular Filtration Rate Laboratory test result Normal (applies to non- numeric results) [facility] ([facility]) <content>Units are mL/min/1.73 m2</content>
<content></content>
<content>Chronic Kidney Disease Staging per NKF:</content>
<content></content>
<content>Stage I & II GFR >=60 Normal to Mildly Decreased</content>
<content>Stage III GFR 30-59 Moderately Decreased</content>
<content>Stage IV GFR 15-29 Severely Decreased</content>
<content>Stage V GFR <15 Very Little GFR Left</content>
<content>ESRD GFR <15 on ARCHITECTURAL TECHNICIAN</content>
<content></content> Sodium Level 142 meq/L 136-145 Normal (applies to non-numeric res ults) [facility] ([facility]) Potassium Serum 4.0 meq/L 3.5-5.1 Normal (applies to non-numeric results) [facility] ([facility]) Chloride Level 107 meq/L 98-107 Normal (applies to non-numeric r esults) [facility] ([facility]) Carbon Dioxide Level 27 meq/L 21-32 Normal (applies to non-num pop results) [facility] ([facility]) Anion Gap 8 meq/L 8-16 Normal (applies to non-numeric resul ts) [facility] ([facility]) Calcium Level 9.2 mg/dL 8.8-10.2 Normal (applies to non-numeric re sults) [facility] ([facility]) ID Date Data Source [id number] 05/22/2020 04:47:00 PM EST [facility] ([facility]) Name Value Range Interpretation Code Description Data Kathi rce(s) Supporting Document(s) Ast/Sgot 33 U/L 7-37 Normal (applies to non-numeric resul ts) [facility] ([facility]) Alt/SGPT 49 U/L 12-78 Normal (applies to non-numeric resul ts) [facility] ([facility]) Alkaline Phosphatase 101 U/L 45-117 Normal (applies to non-num opp results) [facility] ([facility]) Bilirubin,Total 0.4 mg/dL 0.2-1.0 Normal (applies to non-numeric results) [facility] ([facility]) Total Protein 6.5 GM/DL 6.4-8.2 Normal (applies to non-numeric re sults) [facility] ([facility]) Bilirubin,Direct 0.1 mg/dL 0.0-0.2 Normal (applies to non-numeric results) [facility] ([facility]) Albumin/Globulin Ratio 1.3 1.2-2.2 Normal (applies to non-n umeric results) [facility] ([facility]) Albumin 3.7 GM/DL 3.2-5.2 Normal (applies to non-numeric resul ts) [facility] ([facility]) ID Date Data Source [id number] 05/22/2020 04:47:00 PM EST [facility] ([facility]) Name Value Range Interpretation Code Description Data Kathi rce(s) Supporting Document(s) CPK Creatine Phosphokinase 58 U/L 26-192 Queenie l (applies to non-numeric results) [facility] ([facility]) CK-MB Value Mass 1.2 ng/mL Normal (applies to non-numeric results) [facility] ([facility]) MB/CK Relative Index 2.07 Normal (applies to non-num pop results) [facility] ([facility]) <content>DIAGNOSIS CRITERIA</content>
<content>MMB ng/ml Relative Index (RI)</content>
<content>NON-AMI < or = 5 N/A</content>
<content>NGUYEN ZONE > 5 < or = 4</content>
<content>AMI > 5 > 4</content>
<content></content> Troponin I Laboratory test result Normal (applies to non-n umeric results) [facility] ([facility]) <content>Troponin I Reference Interval f or Siemens [place] LOCI:</content>
<content></content>
<content>99th Percentile= 0.00-0.045 ng/ml</content>
<content></content>
<content>Risk Stratification:</content>
<content><= 0.10 ng/ml Decreased Risk for Adverse Clinical</content>
<content>Events.</content>
<content>0.10-1.50 ng/ml Increased Risk for Adverse Clinical</content>
<content>Events. Evaluation of additional</content>
<content>criterion and/or repeat testing in 2-6</content>
<content>hours is suggested to rule out myocardial</content>
<content>damage.</content>
<content>>= 1.50 ng/ml Indicative of Myocardial Injury.</content>
<content></content> ID Date Data Source [id number] 04/14/2020 08:40:00 PM EST [facility] ([facility]) Name Value Range Interpretation Code Description Data Kathi rce(s) Supporting Document(s) Laboratory test finding (navigational concept) 0.38 ng/mL 0 .00-0.08 Above high normal [facility] ([facility]) ID Date Data Source [id number] 04/14/2020 08:34:00 PM EST [facility] ([facility]) Name Value Range Interpretation Code Description Data Kathi rce(s) Supporting Document(s) Laboratory test finding (navigational concept) 144 mg/dL 7 0-105 Above high normal [facility] Laboratory test finding (navigational concept) 48.0 % 3 8.0-51.0 Normal (applies to non-numeric results) [facility] ([facility]) Laboratory test finding (navigational concept) 3.8 meq/L 3 .5-5.1 Normal (applies to non-numeric results) [facility] ([facility]) Laboratory test finding (navigational concept) 138 meq/L 1 36-145 Normal (applies to non-numeric results) [facility] ([facility]) Laboratory test finding (navigational concept) 104 meq/L 9 8-109 Normal (applies to non-numeric results) [facility] ([facility]) Laboratory test finding (navigational concept) 4.4 mg/dL 4 .5-5.3 Below low normal [facility] ([facility]) Laboratory test finding (navigational concept) 25.0 MM/L 2 3.0-27.0 Normal (applies to non-numeric results) [facility] ([facility]) Laboratory test finding (navigational concept) 0.7 mg/dL 0 .6-1.3 Normal (applies to non-numeric results) [facility] ([facility]) Laboratory test finding (navigational concept) 23 mg/dL 8 -26 Normal (applies to non-numeric results) [facility] ([facility]) ID Date Data Source [id number] 04/14/2020 08:30:00 PM EST [facility] ([facility]) Name Value Range Interpretation Code Description Data Kathi rce(s) Supporting Document(s) White Blood Count 9.3 10 4.0-10.0 Normal (applies to non-numeri c results) [facility] ([facility]) Hemoglobin 17.0 g/dL 12.0-15.5 Above high normal [facility] ([facility]) Red Blood Count 5.41 10 4.00-5.40 Above high normal [facility] ([facility]) Hematocrit 49.0 % 36.0-47.0 Above high normal [facility] ([facility]) Mean Corpuscular Hemoglobin 31.4 pg 27.0-33.0 Norm al (applies to non-numeric results) [facility] ([facility]) Mean Corpuscular Volume 90.6 fl 80.0-96.0 Normal ( applies to non-numeric results) [facility] ([facility]) Red Cell Distribution Width 11.8 % 11.5-14.5 Norm al (applies to non-numeric results) [facility] ([facility]) Mean Corpuscular HGB Conc 34.7 g/dL 32.0-36.5 Normal (applies to non-numeric results) [facility] ([facility]) Platelet Count, Automated 236 10 150-450 Normal (applies to non-numeric results) [facility] ([facility]) Lymph % 20.4 % 24.0-44.0 Below low normal [facility] ( [facility]) Neutrophils % 68.7 % 36.0-66.0 Above high normal [facility] ([facility]) [place] % 9.3 % 0.0-5.0 Above high normal [facility] ([facility]) Eos % 0.9 % 0.0-3.0 Normal (applies to non-numeric resul ts) [facility] ([facility]) Baso % 0.3 % 0.0-1.0 Normal (applies to non-numeric resul ts) [facility] ([facility]) Immature Granulocyte % 0.4 % 0-3.0 Normal (applies to non-n umeric results) [facility] ([facility]) Neutrophils # 6.4 10 1.5-8.5 Normal (applies to non-numeric re sults) [facility] ([facility]) Nucleated Red Blood Cell % 0.0 % 0-0 Normal (applies to n on-numeric results) [facility] ([facility]) Lymph # 1.9 10 1.5-5.0 Normal (applies to non-numeric resul ts) [facility] ([facility]) [place] # 0.9 10 0.0-0.8 Above high normal [facility] ([facility]) Eos # 0.1 10 0.0-0.5 Normal (applies to non-numeric resul ts) [facility] ([facility]) Baso # 0.0 10 0.0-0.2 Normal (applies to non-numeric resul ts) [facility] ([facility]) ID Date Data Source [id number] 04/14/2020 03:26:00 PM EST [facility] ([facility] Name Value Range Interpretation Code Description Data Kathi rce(s) Supporting Document(s) Hematocrit [Volume Fraction] of Blood by Automated count 49.0 [facility] ([facility]) Hemoglobin [Mass/volume] in Blood 17.0 [facility] ([facility]) Erythrocyte mean corpuscular volume [Entitic volume] by Automate d count 90.6 [facility] ([facility]) Erythrocyte mean corpuscular hemoglobin [Entitic mass] by Au tomated count 31.4 [facility] ([facility]) Erythrocyte mean corpuscular hemoglobin concentration [Mass/volume] by Automated count 34.7 [facility] ([facility] Neutrophils 68.7 [facility] ([facility]) Platelet mean volume [Entitic volume] in Blood by [place] Laboratory test result [facility] ([facility]) Platelets [#/volume] in Blood by Automated count 236 [facility] ([facility]) Erythrocyte distribution width [Ratio] by Automated count 11.8 [facility] ([facility]) Lymphocytes/100 leukocytes in Body fluid by Manual count 20.4 [facility] ([facility]) Monocytes 9.3 [facility] ([facility]) Band form neutrophils/100 leukocytes in Body fluid by Manual count Laboratory test result [facility] ([facility]) Basophils/100 leukocytes in Blood 0.3 [facility] ([facility]) Fluid Body Eosinophils 0.9 [facility] ([facility]) Lymphocytes [#/volume] in Blood 1.9 [facility] ([facility]) Monocytes [#/volume] in Blood 0.9 [facility] ([facility]) Neutrophils [#/volume] in Blood by Automated count 6.4 [facility] ([facility]) Eosinophils [#/volume] in Blood by Automated count 0.1 [facility] ([facility]) Basophils [#/volume] in Blood by Automated count 0.0 [facility] ([facility]) ID Date Data Source [id number] 04/14/2020 03:26:00 PM EST [facility] ([facility] Name Value Range Interpretation Code Description Data [facility](s) Supporting Document(s) Red Blood Count 5.41 4.70-6.20 [facility] ([facility]) Platelets 236 130-400 [facility] White Blood Count 9.3 4.3-10.9 [facility] ([facility]) Hemoglobin 17.0 13.0-17.0 [facility] ([facility]) Hematocrit 49.0 39.0-50.0 [facility] ([facility]) ID Date Data Source [id number] 04/13/2020 12:19:30 PM EST [facility] NT INFORMATIONPatient MRN Name Date of Age Gend*PT [id number] Mercy Arreola 1955 64 years F SDCXPT Location Admission Date/Time Visit ID Attending Provider04/11/20 1403 --- Zhanna Harris MD([id number]) EPI ID CSN Admitting Provider [id number] Zhanna Harris MD([id number]) Attestation signed by Zhanna Harris MD at 04/13/2020 12:19 PMATTENDING ADDENDUM:I saw and examined Ms. Arreola today, and agree with the exam, assessment,and plan of damon Benitez, noted above.In brief, Ms. Arreola presents with typical with successful RFA.I agree with the plan as noted above.Beto Harris M.D., [facility], [facility]iac Electrophysiology04/13/2020 12:18 PM --Cardiology Discharge Summary Mercy Joe: [id number] date: 04/11/2020ttending Physician: Zhanna Harris, [facility] Diagnosis: Typical atrial flutterSecondary Diagnoses: Principal Problem: [...] history of tobacco useThe patient presented to [facility] 04/10/2019 for palpitations witha heart rate [...] VITAMIN C Take 500 mg by mouth fncqjJ-Cvxwqkg-P Tabs Take 1 tablet by mouth dailydicyclomine [...] Get Your MedicationsThese medications were sent to [facility] [address] [place] [address] amLODIPine 5 MG tablet rivaroxaban 20 MG [...] Value Range Interpretation Code Description [facility] Document(s) ID Date Data Source [id number] 04/13/2020 06:50:43 AM EST [facility] Name Value Range Interpretation Code Description Data [facility] Supporting Document(s) SODIUM 139 mmol/L (136-145) [facility] POTASSIUM 4.3 mmol/L (3.6-5.2) [facility] CHLORIDE 105 mmol/L (100-108) [facility] CO2 25 mmol/L (22-31) [facility] ANION GAP 9 mmol/L (7-16) [facility] UREA NITROGEN 25 mg/dL (7-24) H [facility] CREATININE 0.80 mg/dL (0.60-1.00) [facility] BUN/CREAT RATIO 31.3 RATIO (10.0-20.0) H [facility] GLUCOSE 71 mg/dL (70-99) [facility] CALCIUM 8.9 mg/dL (8.4-10.2) [facility] GFR >60 ml/min/1.73m2 (>59) [facility] GFR ( AMER) >60 ml/min/1.73m2 (>59) [facility] GFR INTERPRETATION [facility] --NORMAL KIDNEY FUNCTION OR MILD DISEASE - GFR >OR= 60CHRONIC KIDNEY DISEASE - GFR 15 - 59RENAL FAILURE - GFR <15 Est. GFR calculation based on the MDRDstudy equation, which assumes a steadystate for creatinine. Est. GFR should notbe used for medication dosing. ID Date Data Source [id number] 04/13/2020 04:36:41 AM EST [facility] Name Value Range Interpretation Code Description Data Kathi rce(s) Supporting Document(s) WBC 8.8 10*3/uL (4.1-11.0) [facility] [place] RBC 5.24 10*6/uL (4.00-5.40) [facility] HGB 17.1 g/dL (12.0-16.0) H [facility] HCT 49.1 % (36.0-47.0) [facility] PERFORMED AT [address] [place] [address] [facility] [address] M[place] 93.7 fL (80.0-95.0) [facility] MCH 32.6 pg (27.0-32.0) H [facility] MCHC 34.8 g/dL (32.0-36.0) [facility] RDW 12.4 % (10.5-14.5) [facility] PLT 234 10*3/uL (150-450) [facility] MPV 7.6 fL (7.1-10.7) [facility] ID Date Data Source [id number] 04/12/2020 02:52:26 PM EST [facility] Name Value Range Interpretation Code Description Data Kathi rce(s) Supporting Document(s) &PDF [facility] YBQAFu0hYvCJNuBs77/KDBitRFFmh8UeZRwrKUs9BOuoBQAbI4JzgSmvAYTKZoiPZ8sIDJcZBo4mUVIs waW [file] [id number]== ID Date Data Source [id number] 04/12/2020 10:05:42 AM EST [facility] Name Value Range Interpretation Code Description Data Kathi rce(s) Supporting Document(s) &PDF [facility] TBXWZv3nXeJOZmRy27/IVDjwRRChe1QtAGqtXQw1PLejCLIxN1ZqvWutNCSTZkpDM0yXNSpUTe9eDMGr waW [file] progressive die maker+yFfoRqx2rmsSTBC4JniKS91vq08Ja3whRY9QAr [file] QlfaRhE1JTFiAWH0QuDjPGv7Kp1yIEDKPn8+QBtnsSZimJbmJUXZFpP3KJJ8HLkyZFSWVu2D ID Date Data Source [id number] 04/12/2020 08:37:17 AM EST [facility] Name Value Range Interpretation Code Description Data Kathi rce(s) Supporting Document(s) [facility] RTJEXe7fIwGBAcJxc6EkWmVwXMQeFK7tfbx4Q9B9cDHyI5BndJJcj2zsF1NnL1PgHIHkTBYNMZ8LdIVf jb2 [file] H9y2axVTOvFaBD/1TXeqG2feGvJb2H86cAOiUon7BUmzXN6/+9e7AxL4O/67s4jhu/Yq9v+TIx6p+surgical coordinator QO7ycypq3L/2EvMB7yCx6DAzMitB3A2S6+7MV1W9VJ+H/uqmGBsU3TPxsV+hTTwkAByF+uyf/ccnYZWA BkE3aDDs6TJ6FpRtRcbWYkJMACmB4XXjj0zWBWSYGW zSvTZ9ENZ2FfEsSIgGFgYFRkmnSlemnBZfBGBfwWHTl/oAUkTdBES+yVlAAsZpJTodlGjVXDRUH0eSXR imPaHW1cMncmGVOFrHyxEVlHQ5XnHLO6f9MpHUMuoRgemsuDSj+RS7KPchLu0F6abqbeBtpxE+gC+X76 1I6+qP25FCsGTuYWLKq1tfetLXNU2PfWZ53miJSo96 BdBfdUxCmyKRYjEUlkf79YqQPeyehYDdkjayV6Va5oIHmSdEfZMIP6WTLss+GBiZRrYCLleoquDBrBu9 uesEeCPVcUo524mQpE+qsgaHS0WFNMmNhcTtxu+QSU+ESjbAiEwFZt6WUaNVEPEynt8bXtB2tAXHo8uW o0OMINCRC3sxHPQfxBGJRCIeCA4f2Uu7Y82EmJGOCK [file] Ohh3KsDNUnUSYWOr6+ZdJ3KHN2eQTtXpj1RiI1QvalKTVHQe== ID Date Data Source [id number] 04/12/2020 06:32:35 AM EST [facility] Name Value Range Interpretation Code Description Data Kathi rce(s) Supporting Document(s) SODIUM 138 mmol/L (136-145) [facility] POTASSIUM 4.3 mmol/L (3.6-5.2) [facility] CHLORIDE 106 mmol/L (100-108) [facility] CO2 24 mmol/L (22-31) [facility] ANION GAP 8 mmol/L (7-16) [facility] UREA NITROGEN 29 mg/dL (7-24) H [facility] CREATININE 0.91 mg/dL (0.60-1.00) [facility] BUN/CREAT RATIO 31.9 RATIO (10.0-20.0) [facility] GLUCOSE 83 mg/dL (70-99) [facility] CALCIUM 9.0 mg/dL (8.4-10.2) [facility] GFR >60 ml/min/1.73m2 (>59) [facility] GFR ( AMER) >60 ml/min/1.73m2 (>59) [facility] GFR INTERPRETATION [facility] --NORMAL KIDNEY FUNCTION OR MILD DISEASE - GFR >OR= 60CHRONIC KIDNEY DISEASE - GFR 15 - 59RENAL FAILURE - GFR <15 Est. GFR calculation based on the MDRDstudy equation, which assumes a steadystate for creatinine. Est. GFR should notbe used for medication dosing. ID Date Data Source [id number] 04/12/2020 06:02:20 AM EST [facility] Name Value Range Interpretation Code Description Data Kathi rce(s) Supporting Document(s) WBC 8.1 10*3/uL (4.1-11.0) [facility] [place] RBC 5.45 10*6/uL (4.00-5.40) H [facility] HGB 18.1 g/dL (12.0-16.0) H [facility] HCT 50.6 % (36.0-47.0) [facility] PERFORMED AT [address] [place] [address] [place] [address] MCV 92.8 fL (80.0-95.0) [facility] MCH 33.1 pg (27.0-32.0) H [facility] MCHC 35.7 g/dL (32.0-36.0) [facility] RDW 12.8 % (10.5-14.5) [facility] PLT 258 10*3/uL (150-450) [facility] MPV 8.0 fL (7.1-10.7) [facility] ID Date Data Source [id number] 04/11/2020 05:34:01 PM EST [facility] INFORMATIONPatient MRN Name Date of Age Gend*PT [id number] [facility] 1955 64 years F SDCXPT Location Admission Date/Time Visit ID Attending Provider04/11/20 1403 --- Zhanna Harris MD([id number]) EPI ID CSN Admitting Provider [id number] Zhanna Harris MD([id number]) Attestation signed by Zhanna Harris MD at [...] the plan as noted above.Beto Harris M.D., [facility], RSClinical Cardiac Electrophysiology04/11/2020 4:17 PM --ADMISSION HISTORY AND PHYSICALName: Mercy Arreola Gender: femaleDate of : 1955 Age: 64 yearsDate/Time of Admit: 04/11/2020 2:03 PM Code Status: No OrderPrimary Care Provider / Referring Physician: DAVE MARK-DON, DOInformant:Current HistoryChief Complaint: palpitationsHPI:This patient is a 64 years female who follows with Dr. Galarza for cardiac care.She has the following past medical history:1. Lyme disease, status post treatment 90429. [place]osis, [address]. Atrial flutter status post multiple DC cardioversions. Patient on Xarelto.4. Distant history of tobacco useThe patient presented to [facility] 04/10/2019 for palpitations witha heart rate [...] 15 mg daily, although review of records bjyrymyl94 mg daily which would be the appropriate dose.The patient denies any history of TIA/CVA, CAD, PAD. Reports extensive testingin 2017 by her container finisher. She currently denies any symptoms other thanfatigue [...] file Gets together: Not on file Attends adventist service: Not on file Active member of [...] and symmetricSkin: No rash or lumps.Neurologic: Grossly normalDiagnosticsLabsCentral Park Hospital:Glucose 94Creatinine 0.68Sodium 138Potassium 4.1AST 49ALT 76Mag [...] amiodarone, she wasloaded [facility] at [facility]. Continue oral cardizem. Start PO amiodarone.Monitor blood pressure and heart rate. Continue Xarelto, 20mg dose as she hasnormal creatinine.Plan RFA ablation for tomorrow. Further recommendations per Dr. Harris.Follow up with Dr. Galarza in 1-2 weeks after discharge.Signature: MIRELLA Cliftonate: April 11, 2020Time: 2:11 PM Name Value Range Interpretation Code Description Data Kathi rce(s) Supporting Document(s) ID Date Data Source [id number] 04/11/2020 04:54:08 PM EST [facility] Name Value Range Interpretation Code Description Data [facility] rce(s) Supporting Document(s) SODIUM 142 mmol/L (136-145) [facility] POTASSIUM 4.5 mmol/L (3.6-5.2) [facility] CHLORIDE 105 mmol/L (100-108) [facility] CO2 24 mmol/L (22-31) [facility] ANION GAP 13 mmol/L (7-16) [facility] UREA NITROGEN 17 mg/dL (7-24) [facility] CREATININE 0.70 mg/dL (0.60-1.00) [facility] BUN/CREAT RATIO 24.3 RATIO (10.0-20.0) H [facility] GLUCOSE 78 mg/dL (70-99) [facility] CALCIUM 9.4 mg/dL (8.4-10.2) [facility] TOTAL PROTEIN 6.2 g/dL (6.4-8.2) L [facility] ALBUMIN 3.7 g/dL (3.2-4.5) [facility] GLOBULIN 2.5 g/dL (2.7-4.3) L [facility] ALB/GLOB RATIO 1.5 RATIO [facility] ALKALINE PHOSPHATASE 111 U/L (45-117) [facility] BILIRUBIN,TOTAL 0.9 mg/dL (0.0-1.0) [facility] PLEASE NOTE:Total bilirubin results may be falselyelevated in patients taking Eltrombopag. AST (SGOT) 51 U/L (11-39) H [facility] ALT (SGPT) 82 U/L (12-78) H [facility] GFR >60 ml/min/1.73m2 (>59) [facility] GFR ( AMER) >60 ml/min/1.73m2 (>59) [facility] GFR INTERPRETATION [facility] --NORMAL KIDNEY FUNCTION OR MILD DISEASE - GFR >OR= 60CHRONIC KIDNEY DISEASE - GFR 15 - 59RENAL FAILURE - GFR <15 Est. GFR calculation based on the MDRDstudy equation, which assumes a steadystate for creatinine. Est. GFR should notbe used for medication dosing. ID Date Data Source [id number] 04/11/2020 04:38:13 PM EST [facility] Name Value Range Interpretation Code Description Data Kathi rce(s) Supporting Document(s) APTT 31.3 s (22.0-34.3) [facility] [place] [place] [address] [facility] [place] [address] ID Date Data Source [id number] 04/11/2020 04:38:13 PM EST [facility] Name Value Range Interpretation Code Description Data Kathi rce(s) Supporting Document(s) PT 11.7 s (9.2-11.9) [facility] [place] [place] [address] [facility] [place] [address] INR 1.12 [facility] SUGGESTED THERAPEUTIC RANGES USING INR F ORSTABILIZED ANTICOAGULATED PATIENTS:STANDARD DOSE THERAPY INR 2.0-3.0 DVT, PE, PREVENT DVT OR EMBOLISMHIGH DOSE THERAPY INR 2.5-3.5 PREVENT EMBOLISM FROM MECHANICAL HEART VALVE ID Date Data Source [id number] 04/11/2020 04:31:31 PM EST [facility] Name Value Range Interpretation Code Description Data Kathi rce(s) Supporting Document(s) WBC 9.0 10*3/uL (4.1-11.0) [facility] [place] RBC 5.81 10*6/uL (4.00-5.40) H [facility] HGB 19.1 g/dL (12.0-16.0) H [facility] HCT 54.4 % (36.0-47.0) H [facility] PERFORMED AT [address] [place] [address] MCV 93.7 fL (80.0-95.0) [facility] MCH 32.9 pg (27.0-32.0) H [facility] MCHC 35.1 g/dL (32.0-36.0) [facility] RDW 12.8 % (10.5-14.5) [facility] PLT 274 10*3/uL (150-450) [facility] MPV 8.4 fL (7.1-10.7) [facility] ID Date Data Source [id number] 04/11/2020 02:17:21 PM EST [facility] Name Value Range Interpretation Code Description Data Kathi rce(s) Supporting Document(s) EKG [facility] VNAFUl9lMdRVAvQfz4HlSeFmTUTgQM3bmlp3M1E5oADhQ0ItlONgf0wlH2ItL9SnUIZdQDZOJW6ZrGFw jb2 [file] qMPTPpMZMzNlftfypi6tfsUvgwBCoL2gF6bFLoyXY0bCzP76spcfpF6VkgkgIl9qWjsNH/gV29tdB/wood tank erector tl/QZNjgXAMro5hRImPMemKZealY4D02ee+SjmZyAT2M7pK5wDrKVUkfXZncqS3ZQOz9PnWy0GO8pBTy lGvGsRSVDGWusKn/nJfWpiGOJZRgxLHoZ//zX//7P/ 5cG0xqIN0b//7nf/1f9f/45z//zz//539Yl/km80mFf/lvU0Qvjg38S6jseny5+D+s/HsFlfrpr/2HLW qcu77zKllvN/poJ8hB2qbL8W0/UI2jjs7RFVWhTbE6jXQLzWxGmV3cqK16t0zlj7yFjOU/4/4vJ9gX8p MN8bsd42+egf9+4IiN4V/W5Qb6/6u09Q7cuLG+fO2r yV1Fzdjopu9i0e4q12+4rSkK/q/9d+7/2h8k/r0wjF/9js5QDeE/brfxTHc25mvsk+ThboOBhg0Az5TI b9x+TFa3mOitP+NyrT4k/Ji7ABhR+yUJaeJ+pm8N43x3/NCye40TouJGO6um+713bEnCoqxaHS3xu9yC +3rGRhKqICdk7/fK/GEP29/ipNWl8L8T5yce61IxM0 5vV/RMytgHfH/2qluPB64UtDX9wStBy7WToj/2ugoc+NpHoQLW/sbdj0v/6xJ3woJ5RaArNuV8kgW6oF 9DAqQMjor3Twqp6Ej6N+j+1LD6xH7loRrm/4Fc6b+Ohulx2Yokbm3Lo0fakdo6obHVb8/4Fr//4O21u/ 7z5Q5sYWKBHBfzyt3SFgQ/hyFHQqwqftv9Ak8qkm4F tCmhiGsQzxujJFcIuJ5jrCemUQov/Z10YZ+3bvCO/W4scFNCoIZ76KdarxE84xcUlpWu/iCCIcoHG0Hc CreIMAReESjM/1Apq4EBXtM/zVT+gxjV7Lc8ovonDF6f7E/6c1xC2KNkUGsDti/4gS9uIxpE0qpaS1+O 7ErKr2qo95mKvy/oWDy3LD8bWstnW/OzfnUwkN6DxK /yTEzT0VzG5FZdes7FRrBR4IcCoPUqtj1DDVBQZ7Fn8NM4JW/+Cal3Y0BYB74vQUaVTb3c/fv7fZW++1 4A9hI60co75DkyqCX6jqWi5iCG5p16P4R3yVfBrRTFvBuffbKzQD+keszKlv1BQR0wqmGFv9g6XO5N7+ Dj+OP2vmFVg+u/cQzq5uQ1Nb0ZylXxICncnBCwneJ5 DuoXwhLOq4xgqV9CH0doSNvY3fseYyjE2McSIK2HiWjHvHFl61GwG0h5OI6WTTSiEtOGL+3JSiLsw7Rz MsK4Z2xxmSZiGfzdtc+NStRdBNuasHYdjszJ0fwzw95/59SxwTn6h2YSntwdiwU01xoD96FaHfjKepBs y635d+IVnnUnXkGeO/JKbTFEC9gUVptPttHrBPwwdQ rR7qA07k+poJX7vQZQgGA/qWSI7nj/54A5PY1yW5pbJkCRhZ4Ggkb4S0Xcme/lr1EXnvK5OZORzLv+5I Is4czIeNpEi9lxvb/VT4cuP0m6+82w/83a04LUAR/hnfibG/34WsqPQzG2YkG/eHfgmRAewjEhPRB+iX Keara/cjeCXi+Y7E2rWYI+CSCNkAXhFDOvUr/x35oG3N 7gjpZvBG/YCI0nC1JkbICfRlF59Go+Tm9lP9OA3Tvpu/cwWv/437d2P/vO6183Yo2zbSGvXpNdJjm/Chelly [file] hsC6z0HATwSOebJU3qelZbCGLlAhnsCb0rbND2GFNpJjsMQz9Mn8MczdN5rmKzDqFiOQk8RgWvPS3A ID Date Data Source [id number] 04/11/2020 09:13:00 AM EST [facility] ([facility]) Name Value Range Interpretation Code Description Data Kathi rce(s) Supporting Document(s) Magnesium Level 2.2 [facility] ([facility]) ID Date Data Source [id number] 04/11/2020 09:13:00 AM EST [facility] ([facility]) Name Value Range Interpretation Code Description Data Kathi rce(s) Supporting Document(s) Sodium 138 [facility] ([facility] Calcium [Mass/volume] in Serum or Plasma 9.2 [facility] ([facility]) Chloride [Moles/volume] in Serum or Plasma 106 [facility] ([facility]) Carbon dioxide, total [Moles/volume] in Serum or Plasma 25 [facility] ([facility]) Blood Urea Nitrogen 15 5-21 [facility] ([facility]) Potassium [Moles/volume] in Serum or Plasma 4.1 [facility] ([facility]) Glucose 94 70-100 [facility]) Creatinine 0.68 0.6-1.5 [facility] ([facility]) Glomerular filtration rate/1.73 sq M.pre dicted [Volume Rate/Area] in Serum or Plasma by Creatinine-based formula (MDRD) 60.0 [facility] ([facility]) ID Date Data Source [id number] 04/11/2020 09:13:00 AM EST [facility] Name Value Range Interpretation Code Description Data Kathi rce(s) Supporting Document(s) Alkaline phosphatase [Enzymatic activity/volume] in Serum or Plasma 1 04 [facility] ([facility]) Aspartate aminotransferase [Enzymatic activity/volume] in Serum or Plasma 49 [facility] ([facility]) Bilirubin.total [Mass/volume] in Serum or Plasma 0.7 [facility] ([facility]) Alanine aminotransferase [Enzymatic activity/volume] in Serum or Pl asma 76 [facility] ([facility]) Bilirubin.direct [Mass/volume] in Serum or Plasma 0.3 [facility] ([facility]) Protein [Mass/volume] in Serum or Plasma 6.0 [facility] ([facility]) Albumin [Mass/volume] in Serum or Plasma 3.4 [facility] ([facility]) Cholesterol [Mass/volume] in Serum or Plasma Laboratory test result [facility] ([facility]) ID Date Data Source [id number] 04/11/2020 09:13:00 AM EST [facility] Name Value Range Interpretation Code Description Data Kathi rce(s) Supporting Document(s) White Blood Count 10.1 4.3-10.9 [facility] ([facility]) Platelets 279 130-400 [facility] ([facility] Red Blood Count 5.54 4.70-6.20 [facility] ([facility]) Hematocrit 51.3 39.0-50.0 [facility] ([facility]) Hemoglobin 17.7 13.0-17.0 [facility] ([facility]) ID Date Data Source [id number] 04/10/2020 01:21:00 PM EST [facility] Name Value Range Interpretation Code Description Data Kathi rce(s) Supporting Document(s) SARS coronavirus 2 RNA [Presence] in Res piratory specimen by RISHABH with probe detection [facility] This lab was ordered by [facility] a nd reported by [facility]. ID Date Data Source [id number] 04/10/2020 12:55:00 PM EST [facility] ([facility]) Name Value Range Interpretation Code Description Data Kathi rce(s) Supporting Document(s) Red Blood Count 5.60 10 4.00-5.40 Above high normal [place] [facility] ([facility]) White Blood Count 5.9 10 4.0-10.0 Normal (applies to non-numeri c results) [facility] ([facility]) Hematocrit 53.3 % 36.0-47.0 Above high normal [facility] Hemoglobin 17.4 g/dL 12.0-15.5 Above high normal [facility]) Mean Corpuscular Volume 95.2 fl 80.0-96.0 Normal ( applies to non-numeric results) [facility] ([facility]) Red Cell Distribution Width 12.2 % 11.5-14.5 Norm al (applies to non-numeric results) [facility] ([facility]) Mean Corpuscular HGB Conc 32.6 g/dL 32.0-36.5 Normal (applies to non-numeric results) [facility] ([facility]) Mean Corpuscular Hemoglobin 31.1 pg 27.0-33.0 Norm al (applies to non-numeric results) [facility] ([facility]) Platelet Count, Automated 263 10 150-450 Normal (applies to non-numeric results) [facility] ([facility]) Nucleated Red Blood Cell % 0.0 % 0-0 Normal (applies to n on-numeric results) [facility] ([facility]) ID Date Data Source [id number] 04/10/2020 12:55:00 PM EST [facility] ([facility]) Name Value Range Interpretation Code Description Data Kathi rce(s) Supporting Document(s) Glucose, Fasting 84 mg/dL 70-100 Normal (applies to non-numeric results) [facility] ([facility]) Blood Urea Nitrogen 17 mg/dL 7-18 Normal (applies to non-nume kelly results) [facility] ([facility]) Creatinine For GFR 0.69 mg/dL 0.55-1.30 Normal (applies to non -numeric results) [facility] ([facility]) Sodium Level 141 meq/L 136-145 Normal (applies to non-numeric res ults) [facility] ([facility]) Potassium Serum 4.0 meq/L 3.5-5.1 Normal (applies to non-numeric results) [facility] ([facility]) Glomerular Filtration Rate Laboratory test result Normal (applies to non- numeric results) [facility] ([facility]) <content>Units are mL/min/1.73 m2</content>
<content></content>
<content>Chronic Kidney Disease Staging per NKF:</content>
<content></content>
<content>Stage I & II GFR >=60 Normal to Mildly Decreased</content>
<content>Stage III GFR 30- 59 Moderately Decreased</content>
<content>Stage IV GFR 15-29 Severely Decreased</content>
<content>Stage V GFR <15 Very Little GFR Left</content>
<content>ESRD GFR <15 on ARCHITECTURAL TECHNICIAN</content>
<content></content> Chloride Level 107 meq/L 98-107 Normal (applies to non-numeric r esults) [facility] ([facility]) Anion Gap 7 meq/L 8-16 Below low normal [facility]) Carbon Dioxide Level 27 meq/L 21-32 Normal (applies to non-num pop results) [facility]) Calcium Level 8.6 mg/dL 8.8-10.2 Below low normal [facility] ([facility]) Ast/Sgot 40 U/L 7-37 Above high normal [facility]) Alt/SGPT 69 U/L 12-78 Normal (applies to non-numeric resul ts) [facility] ([facility]) Total Protein 5.7 GM/DL 6.4-8.2 Below low normal [facility] ([facility]) Alkaline Phosphatase 95 U/L 45-117 Normal (applies to non-num pop results) [facility] ([facility]) Bilirubin,Total 0.5 mg/dL 0.2-1.0 Normal (applies to non-numeric results) [facility] ([facility]) Albumin 3.4 GM/DL 3.2-5.2 Normal (applies to non-numeric resul ts) [facility] ([facility]) Albumin/Globulin Ratio 1.5 1.2-2.2 Normal (applies to non-n umeric results) [facility] ([facility]) ID Date Data Source [id number] 04/10/2020 12:55:00 PM EST [facility] ([facility]) Name Value Range Interpretation Code Description Data Kathi rce(s) Supporting Document(s) CPK Creatine Phosphokinase 47 U/L 26-192 Queenie l (applies to non-numeric results) [facility] ([facility]) CK-MB Value Mass 1.2 ng/mL Normal (applies to non-numeric results) [facility] ([facility]) Troponin I Laboratory test result Normal (applies to non-n umeric results) [facility] ([facility]) <content>Troponin I Reference Interval f or Siemens [place] LOCI:</content>
<content></content>
<content>99th Percentile= 0.00-0.045 ng/ml</content>
<content></content>
<content>Risk Stratification:</content>
<content><= 0.10 ng/ml Decreased Risk for Adverse Clinical</content>
<content>Events.</content>
<content>0.10-1.50 ng/ml Increased Risk for Adverse Clinical</content>
<content>Events. Evaluation of additional</content>
<content>criterion and/or repeat testing in 2-6</content>
<content>hours is suggested to rule out myocardial</content>
<content>damage.</content>
<content>>= 1.50 ng/ml Indicative of Myocardial Injury.</content>
<content></content> MB/CK Relative Index 2.55 Normal (applies to non-num pop results) [facility] ([facility]) <content>DIAGNOSIS CRITERIA</content>
<content>MMB ng/ml Relative Index (RI)</content>
<content>NON-AMI < or = 5 N/A</content>
<content>NGUYEN ZONE > 5 < or = 4</content>
<content>AMI > 5 > 4</content>
<content></content> ID Date Data Source [id number] 04/10/2020 08:45:00 AM EST [facility] ([facility]) Name Value Range Interpretation Code Description Data Kathi rce(s) Supporting Document(s) Laboratory test finding (navigational concept) 15.8 s 1 2.1-14.4 Above high normal [facility] ([facility]) Laboratory test finding (navigational concept) 1.3 Normal (applies to non- numeric results) [facility] ([facility]) ID Date Data Source [id number] 04/10/2020 08:34:00 AM EST [facility] ([facility]) Name Value Range Interpretation Code Description Data Kathi rce(s) Supporting Document(s) Laboratory test finding (navigational concept) 0.00 ng/mL 0 .00-0.08 Normal (applies to non-numeric results) [facility] ([facility]) ID Date Data Source [id number] 04/10/2020 08:33:00 AM EST [facility] ([facility]) Name Value Range Interpretation Code Description Data Kathi rce(s) Supporting Document(s) Laboratory test finding (navigational concept) 50.0 % 3 8.0-51.0 Normal (applies to non-numeric results) [facility] ([facility]) Laboratory test finding (navigational concept) 140 meq/L 1 36-145 Normal (applies to non-numeric results) [facility] ([facility]) Laboratory test finding (navigational concept) 132 mg/dL 7 0-105 Above high normal [facility] ([facility]) Laboratory test finding (navigational concept) 4.7 mg/dL 4 .5-5.3 Normal (applies to non-numeric results) [facility] ([facility]) Laboratory test finding (navigational concept) 101 meq/L 9 8-109 Normal (applies to non-numeric results) [facility] ([facility]) Laboratory test finding (navigational concept) 4.1 meq/L 3 .5-5.1 Normal (applies to non-numeric results) [facility] ([facility]) Laboratory test finding (navigational concept) 29.0 MM/L 2 3.0-27.0 Above high normal [facility]) Laboratory test finding (navigational concept) 20 mg/dL 8 -26 Normal (applies to non-numeric results) [facility] ([facility]) Laboratory test finding (navigational concept) 0.8 mg/dL 0 .6-1.3 Normal (applies to non-numeric results) [facility] ([facility]) ID Date Data Source [id number] 04/10/2020 08:30:00 AM EST [facility] ([facility]) Name Value Range Interpretation Code Description Data Kathi rce(s) Supporting Document(s) Red Blood Count 5.60 10 4.00-5.40 Above high normal [place] [facility] ([facility]) White Blood Count 5.9 10 4.0-10.0 Normal (applies to non-numeri c results) [facility] ([facility]) Hematocrit 53.3 % 36.0-47.0 Above high normal [facility]) Mean Corpuscular Volume 95.2 fl 80.0-96.0 Normal ( applies to non-numeric results) [facility] ([facility]) Hemoglobin 17.4 g/dL 12.0-15.5 Above high normal [facility] ([facility]) Red Cell Distribution Width 12.2 % 11.5-14.5 Norm al (applies to non-numeric results) [facility] ([facility]) Mean Corpuscular Hemoglobin 31.1 pg 27.0-33.0 Norm al (applies to non-numeric results) [facility] ([facility]) Mean Corpuscular HGB Conc 32.6 g/dL 32.0-36.5 Normal (applies to non-numeric results) [facility] ([facility]) Nucleated Red Blood Cell % 0.0 % 0-0 Normal (applies to n on-numeric results) [facility] ([facility]) Platelet Count, Automated 263 10 150-450 Normal (applies to non-numeric results) [facility] ([facility]) ID Date Data Source [id number] 04/10/2020 08:30:00 AM EST [facility] ([facility]) Name Value Range Interpretation Code Description Data Kathi rce(s) Supporting Document(s) Thyrotropin [Units/volume] in Serum or Plasma 2.030 uIU/ML 0. 358-3.740 Normal (applies to non-numeric results) [facility] ([facility]) ID Date Data Source [id number] 04/07/2020 11:45:00 AM EST [facility] ([facility]) Name Value Range Interpretation Code Description Data Kathi rce(s) Supporting Document(s) EKG Laboratory test result [facility] ([facility]) ID Date Data Source [id number] 04/03/2020 10:53:00 AM EST [facility] ([facility] Name Value Range Interpretation Code Description Data Kathi rce(s) Supporting Document(s) Magnesium Level 2 [facility] ([facility]) ID Date Data Source [id number] 04/03/2020 10:53:00 AM EST [facility] ([facility]) Name Value Range Interpretation Code Description Data Kathi rce(s) Supporting Document(s) Alanine aminotransferase [Enzymatic activity/volume] in Serum or Pl asma 61 [facility] ([facility]) Calcium [Mass/volume] in Serum or Plasma 8.6 [facility] ([facility]) Albumin [Mass/volume] in Serum or Plasma 3.3 [facility] ([facility]) Carbon dioxide, total [Moles/volume] in Serum or Plasma 27 [facility] ([facility]) Alkaline phosphatase [Enzymatic activity/volume] in Serum or Plasma 9 7 [facility] ([facility]) Potassium [Moles/volume] in Serum or Plasma 4.4 [facility] ([facility]) Chloride [Moles/volume] in Serum or Plasma 104 [facility] ([facility]) Protein [Mass/volume] in Serum or Plasma 5.8 [facility] ([facility]) Sodium 139 [facility] ([facility]) Urea nitrogen [Mass/volume] in Serum or Plasma 26 [facility] ([facility]) Aspartate aminotransferase [Enzymatic activity/volume] in Serum or Plasma 30 [facility] ([facility]) Glucose 86 70-100 [facility] Creatinine For GFR 0.81 [facility] ([facility]) ID Date Data Source [id number] 04/03/2020 10:53:00 AM EST [facility] ([facility]) Name Value Range Interpretation Code Description Data Kathi rce(s) Supporting Document(s) White Blood Count 7.7 4.3-10.9 [facility] ([facility]) Red Blood Count 5.34 4.70-6.20 [facility] ([facility]) Platelets 268 130-400 [facility] Hemoglobin 17.1 13.0-17.0 [facility] ([facility]) Hematocrit 50.9 39.0-50.0 [facility] ([facility]) ID Date Data Source [id number] 04/02/2020 04:00:00 AM EST [facility] Name Value Range Interpretation Code Description Data Kathi rce(s) Supporting Document(s) SARS coronavirus 2 RNA [Presence] in Res piratory specimen by RISHABH with probe detection [facility] This lab was ordered by [facility] a nd reported by [facility]. ID Date Data Source [id number] 03/30/2020 06:13:00 PM EST [facility] ([facility]) Name Value Range Interpretation Code Description Data Kathi rce(s) Supporting Document(s) Thyrotropin [Units/volume] in Serum or Plasma 2.050 uIU/ML 0. 358-3.740 Normal (applies to non-numeric results) [facility] ([facility]) Thyroxine (T4) free [Mass/volume] in Serum or Plasma 1.30 ng/dL 0.76-1.46 Normal (applies to non-numeric results) [facility] ([facility]) Digoxin [Mass/volume] in Serum or Plasma 0.1 ng/mL 0.5-2.0 Below low normal [facility] ([facility]) ID Date Data Source [id number] 03/30/2020 06:13:00 PM EST [facility] ([facility]) Name Value Range Interpretation Code Description Data Kathi rce(s) Supporting Document(s) Glucose, Fasting 80 mg/dL 70-100 Normal (applies to non-numeric results) [facility] ([facility]) Blood Urea Nitrogen 22 mg/dL 7-18 Above high normal [facility] ([facility]) Creatinine For GFR 0.84 mg/dL 0.55-1.30 Normal (applies to non -numeric results) [facility] ([facility]) Glomerular Filtration Rate Laboratory test result Normal (applies to non- numeric results) [facility] ([facility]) <content>Units are mL/min/1.73 m2</content>
<content></content>
<content>Chronic Kidney Disease Staging per NKF:</content>
<content></content>
<content>Stage I & II GFR >=60 Normal to Mildly Decreased</content>
<content>Stage III GFR 30- 59 Moderately Decreased</content>
<content>Stage IV GFR 15-29 Severely Decreased</content>
<content>Stage V GFR <15 Very Little GFR Left</content>
<content>ESRD GFR <15 on ARCHITECTURAL TECHNICIAN</content>
<content></content> Sodium Level 141 meq/L 136-145 Normal (applies to non-numeric res ults) [facility] ([facility]) Chloride Level 108 meq/L 98-107 Above high normal [facility] ([facility]) Potassium Serum 4.1 meq/L 3.5-5.1 Normal (applies to non-numeric results) [facility] ([facility]) Anion Gap 4 meq/L 8-16 Below low normal [facility] ( [facility]) Carbon Dioxide Level 29 meq/L 21-32 Normal (applies to non-num pop results) [facility] ([facility]) Calcium Level 8.7 mg/dL 8.8-10.2 Below low normal [facility] ([facility]) ID Date Data Source [id number] 03/30/2020 06:13:00 PM EST [facility] ([facility]) Name Value Range Interpretation Code Description Data Kathi rce(s) Supporting Document(s) Ast/Sgot 63 U/L 7-37 Above high normal [facility] ([facility]) Bilirubin,Total 0.6 mg/dL 0.2-1.0 Normal (applies to non-numeric results) [facility] ([facility]) Alt/SGPT 100 U/L 12-78 Above high normal [facility] ([facility]) Alkaline Phosphatase 103 U/L 45-117 Normal (applies to non-num pop results) [facility] ([facility]) Bilirubin,Direct 0.2 mg/dL 0.0-0.2 Normal (applies to non-numeric results) [facility] ([facility]) Total Protein 6.1 GM/DL 6.4-8.2 Below low normal [facility] ([facility]) Albumin/Globulin Ratio 1.4 1.2-2.2 Normal (applies to non-n umeric results) [facility] ([facility]) Albumin 3.6 GM/DL 3.2-5.2 Normal (applies to non-numeric resul ts) [facility] ([facility]) ID Date Data Source [id number] 03/30/2020 06:13:00 PM EST [facility] ([facility]) Name Value Range Interpretation Code Description Data Kathi rce(s) Supporting Document(s) CK-MB Value Mass 3.0 ng/mL Normal (applies to non-numeric results) [facility] ([facility]) MB/CK Relative Index 3.66 Normal (applies to non-num pop results) [facility] ([facility]) <content>DIAGNOSIS CRITERIA</content>
<content>MMB ng/ml Relative Index (RI)</content>
<content>NON-AMI < or = 5 N/A</content>
<content>NGUYEN ZONE > 5 < or = 4</content>
<content>AMI > 5 > 4</content>
<content></content> CPK Creatine Phosphokinase 82 U/L 26-192 Queenie l (applies to non-numeric results) [facility] ([facility]) Troponin I Laboratory test result Normal (applies to non-n umeric results) [facility] ([facility]) <content>Troponin I Reference Interval f or Siemens [place] LOCI:</content>
<content></content>
<content>99th Percentile= 0.00-0.045 ng/ml</content>
<content></content>
<content>Risk Stratification:</content>
<content><= 0.10 ng/ml Decreased Risk for Adverse Clinical</content>
<content>Events.</content>
<content>0.10-1.50 ng/ml Increased Risk for Adverse Clinical</content>
<content>Events. Evaluation of additional</content>
<content>criterion and/or repeat testing in 2-6</content>
<content>hours is suggested to rule out myocardial</content>
<content>damage.</content>
<content>>= 1.50 ng/ml Indicative of Myocardial Injury.</content>
<content></content> ID Date Data Source [id number] 03/30/2020 06:13:00 PM EST [facility] ([facility]) Name Value Range Interpretation Code Description Data Kathi rce(s) Supporting Document(s) aPTT in Platelet poor plasma by Coagulation assay 30.0 s 24.2-38.5 Normal (applies to non-numeric results) [facility] ([facility]) ID Date Data Source [id number] 03/30/2020 06:13:00 PM EST [facility] ([facility]) Name Value Range Interpretation Code Description Data Kathi rce(s) Supporting Document(s) Inr 1.09 Normal (applies to non-numeric resul ts) [facility] ([facility]) THERAPUTIC HUMAN INR VALUES INDICATIONS NORMAL RANGES PROPHYLAXIS/TREATMENT OF: VENOUS THROMBOSIS 2.0-3.0 PULMONARY EMBOLISM 2.0-3.0 PREVENTION OF SYSTEMIC EMBOLISM FROM: TISSUE HEART VALVES 2.0-3.0 ACUTE MYOCARDIAL INFARCTION 2.0-3.0 VALVULAR HEART DISEASE 2.0-3.0 ATRIAL FIBRILLATION 2.0-3.0 MECHANICAL VALVES(HIGH RISK) 2.5-3.5 RECURRENT MYOCARDIAL INFARCTION 2.5-3.5 Prothrombin Time 14.3 s 12.5-14.3 Above high normal [facility] ([facility]) ID Date Data Source [id number] 03/30/2020 06:13:00 PM EST [facility] ([facility]) Name Value Range Interpretation Code Description Data Kathi rce(s) Supporting Document(s) Red Blood Count 5.01 10 4.00-5.40 Normal (applies to non-numeric results) [facility] ([facility]) White Blood Count 10.1 10 4.0-10.0 Above high normal [facility] ([facility]) Hemoglobin 16.3 g/dL 12.0-15.5 Above high normal [facility] ([facility]) Hematocrit 48.1 % 36.0-47.0 Above high normal [facility] Mean Corpuscular Volume 96.0 fl 80.0-96.0 Normal ( applies to non-numeric results) [facility] ([facility]) Mean Corpuscular Hemoglobin 32.5 pg 27.0-33.0 Norm al (applies to non-numeric results) [facility] Mean Corpuscular HGB Conc 33.9 g/dL 32.0-36.5 Normal (applies to non-numeric results) [facility] ([facility]) Neutrophils % 74.0 % 36.0-66.0 Above high normal [facility] ([facility]) Red Cell Distribution Width 12.6 % 11.5-14.5 Norm al (applies to non-numeric results) [facility] ([facility]) Platelet Count, Automated 259 10 150-450 Normal (applies to non-numeric results) [facility] ([facility]) Lymph % 16.2 % 24.0-44.0 Below low normal [facility] ( [facility]) [place] % 9.0 % 0.0-5.0 Above high normal [facility] ([facility]) Immature Granulocyte % 0.3 % 0-3.0 Normal (applies to non-n umeric results) [facility] ([facility]) Eos % 0.1 % 0.0-3.0 Normal (applies to non-numeric resul ts) [facility] ([facility]) Baso % 0.4 % 0.0-1.0 Normal (applies to non-numeric resul ts) [facility] ([facility]) Neutrophils # 7.5 10 1.5-8.5 Normal (applies to non-numeric re sults) [facility] ([facility]) Nucleated Red Blood Cell % 0.0 % 0-0 Normal (applies to n on-numeric results) [facility] ([facility]) [place] # 0.9 10 0.0-0.8 Above high normal [facility] ([facility]) Eos # 0.0 10 0.0-0.5 Normal (applies to non-numeric resul ts) [facility] ([facility]) Lymph # 1.6 10 1.5-5.0 Normal (applies to non-numeric resul ts) [facility] ([facility]) Baso # 0.0 10 0.0-0.2 Normal (applies to non-numeric resul ts) [facility] ([facility]) ID Date Data Source [id number] 03/30/2020 06:11:00 PM EST [facility] ([facility]) Name Value Range Interpretation Code Description Data Kathi rce(s) Supporting Document(s) Ethanol [Mass/volume] in Serum or Plasma 0.003 % 0.000-0 .010 Normal (applies to non-numeric results) [facility] ([facility]) Magnesium [Mass/volume] in Serum or Plasma 2.3 mg/dL 1.8-2 .4 Normal (applies to non-numeric results) [facility] ([facility]) ID Date Data Source [id number] 10/18/2019 11:04:00 AM EDT [facility] ([facility]) Name Value Range Interpretation Code Description Data Kathi rce(s) Supporting Document(s) Alanine aminotransferase [Enzymatic activity/volume] in Serum or Pl asma 66 [facility] ([facility]) Albumin [Mass/volume] in Serum or Plasma 3.7 [facility] ([facility]) Carbon dioxide, total [Moles/volume] in Serum or Plasma 27 [facility] ([facility]) Chloride [Moles/volume] in Serum or Plasma 109 [facility] ([facility]) Calcium [Mass/volume] in Serum or Plasma 8.9 [facility] ([facility]) Alkaline phosphatase [Enzymatic activity/volume] in Serum or Plasma 8 1 [facility] ([facility]) Aspartate aminotransferase [Enzymatic activity/volume] in Serum or Plasma 33 [facility] ([facility]) Sodium 143 [facility] Protein [Mass/volume] in Serum or Plasma 6.4 [facility] ([facility]) Potassium [Moles/volume] in Serum or Plasma 4.4 [facility] ([facility]) Creatinine For GFR 0.76 [facility] ([facility] Urea nitrogen [Mass/volume] in Serum or Plasma 14 [facility] ([facility]) Glucose 90 70-100 [facility] ID Date Data Source [id number] 10/18/2019 11:04:00 AM EDT [facility] ([facility]) Name Value Range Interpretation Code Description Data Kathi rce(s) Supporting Document(s) White Blood Count 5.5 4.0-10.0 [facility]) Hematocrit 44.0 [facility] ([facility]) Hemoglobin 14.6 [facility] ([facility]) Platelets 245 150-450 [facility] Red Blood Count 4.72 4.00-5.40 [facility]) ID Date Data Source [id number] 08/30/2019 10:18:00 AM EDT [facility] ([facility]) Name Value Range Interpretation Code Description Data Kathi rce(s) Supporting Document(s) Tibc % Saturation 52.4 [facility]) Iron binding capacity [Mass/volume] in Serum or Plasma 292 [facility]) Iron 153 50-170 [facility] ID Date Data Source [id number] 07/29/2019 10:16:00 AM EDT [facility]) Name Value Range Interpretation Code Description Data Kathi rce(s) Supporting Document(s) Tibc % Saturation 40.3 [facility]) Iron 129 50-170 [facility] Iron binding capacity [Mass/volume] in Serum or Plasma 320 [facility]) ID Date Data Source [id number] 07/29/2019 10:16:00 AM EDT [facility] Name Value Range Interpretation Code Description Data Kathi rce(s) Supporting Document(s) White Blood Count 8.8 4.0-10.0 [facility]) Platelets 260 150-450 [facility] Red Blood Count 4.81 4.0-5.40 [facility] Hematocrit 44.8 [facility] ([facility]) Hemoglobin 15.6 [facility] ([facility]) ID Date Data Source [id number] 07/02/2019 10:08:00 AM EDT [facility] Name Value Range Interpretation Code Description Data Kathi rce(s) Supporting Document(s) Red Blood Count 4.92 4.00-5.40 [facility]) White Blood Count 6.4 4.0-10.0 [facility]) Hematocrit 46.3 [facility] ([facility]) Platelets 297 150-450 [facility] Hemoglobin 15.5 [facility] ([facility]) ID Date Data Source [id number] 07/02/2019 10:08:00 AM EDT [facility] ([facility]) Name Value Range Interpretation Code Description Data Kathi rce(s) Supporting Document(s) Albumin [Mass/volume] in Serum or Plasma 3.8 [facility] ([facility]) Calcium [Mass/volume] in Serum or Plasma 9.3 [facility] ([facility]) Chloride [Moles/volume] in Serum or Plasma 107 [facility] ([facility]) Carbon dioxide, total [Moles/volume] in Serum or Plasma 32 [facility] ([facility]) Alanine aminotransferase [Enzymatic activity/volume] in Serum or Pl asma 90 [facility] ([facility]) Potassium [Moles/volume] in Serum or Plasma 4.2 [facility] ([facility]) Protein [Mass/volume] in Serum or Plasma 6.8 [facility] ([facility]) Alkaline phosphatase [Enzymatic activity/volume] in Serum or Plasma 9 0 [facility] ([facility]) Urea nitrogen [Mass/volume] in Serum or Plasma 19 [facility] ([facility]) Sodium 142 [facility] Glucose 79 70-100 [facility] Aspartate aminotransferase [Enzymatic activity/volume] in Serum or Plasma 41 [facility] ([facility]) Creatinine For GFR 0.86 [facility] ([facility]) Procedure Social History Code Duration Value Status Description Data Source(s ) Smoking 04/19/2020 12:00:00 AM EST Patient is a former smoker completed Patient is a former smoker [facility]) Alcohol intake 04/13/2020 12:00:00 AM EST Not Currently completed [facility] Smoking 04/13/2020 12:00:00 AM EST Former smoker completed Former smoker [facility] Vital Signs ID Date Data Source [id number] Name Value Range Interpretation Code Description Data Source(s) [place] body weight 115 [lb_av] 115 [lb_av] [facility] T ([facility]) Oxygen saturation in Arterial blood by Pulse oximetry 98 % 98 % [facility] ([facility]) Body temperature 97.8 [degF] 97.8 [degF] [facility] ([facility]) Respiratory rate 18 /min 18 /min [facility] ( [facility]) Heart rate 57 /min 57 /min [facility] ([facility]) Body mass index (BMI) [Ratio] 23.1 kg/m2 23.1 k g/m2 [facility] ([facility]) Body weight 130.38 [lb_av] 130.38 [lb_av] [facility] T ([facility]) Body height 63 [in_i] 63 [in_i] [facility] ([facility]) 5'3" Diastolic blood pressure 84 mm[Hg] 84 mm[Hg] [facility] ([facility]) Systolic blood pressure 148 mm[Hg] 148 mm[Hg] M [facility]ENT ([facility]) Diastolic blood pressure--sitting 86 mm[Hg] 86 mm[Hg] [facility] ([facility]) CBP, adult cuff/LA Systolic blood pressure--sitting 164 mm[Hg] 164 mm[Hg] [facility] ([facility]) CBP, adult cuff/LA Heart rate 51 /min 51 /min [facility]) Body mass index (BMI) [Ratio] 23.0 kg/m2 23.0 k g/m2 [facility] ([facility]) Body height 63 [in_i] 63 [in_i] [facility]) 5'3" Body weight 130.00 [lb_av] 130.00 [lb_av] [facility] T ([facility]) Oxygen saturation in Arterial blood by Pulse oximetry 97 % 97 % [facility] Respiratory rate 16 /min 16 /min [facility] Body temperature 36.67 Haley 36.67 Haley [facility] Heart rate 62 /min 62 /min [facility] Diastolic blood pressure 88 mm[Hg] 88 mm[Hg] [facility] Systolic blood pressure 150 mm[Hg] 150 mm[Hg] [facility] Body mass index (BMI) [Ratio] 23.03 kg/m2 23.03 kg/m2 [facility] Body weight 58.968 kg 58.968 kg [facility] Body height 160 cm 160 cm [facility] [place] body weight 115 [lb_av] 115 [lb_av] [facility] T ([facility]) Oxygen saturation in Arterial blood by Pulse oximetry 98 % 98 % [facility] ([facility]) Body temperature 98.1 [degF] 98.1 [degF] [facility] ([facility]) Respiratory rate 18 /min 18 /min [facility] ( [facility]) Heart rate 63 /min 63 /min [facility] ([facility]) Body mass index (BMI) [Ratio] 23.4 kg/m2 23.4 k g/m2 [facility] ([facility]) Body weight 132.25 [lb_av] 132.25 [lb_av] [facility] T ([facility]) Body height 63 [in_i] 63 [in_i] [facility] ([facility]) 5'3" Diastolic blood pressure 74 mm[Hg] 74 mm[Hg] [facility] ([facility]) Systolic blood pressure 124 mm[Hg] 124 mm[Hg] M [facility] ([facility]) Diastolic blood pressure--sitting 78 mm[Hg] 78 mm[Hg] [facility] ([facility]) Systolic blood pressure--sitting 130 mm[Hg] 130 mm[Hg] [facility] ([facility]) Heart rate 67 /min 67 /min [facility] Body mass index (BMI) [Ratio] 24.3 kg/m2 24.3 k g/m2 [facility] ([facility]) Body height 63 [in_i] 63 [in_i] [facility]) 5'3" Body weight 137.00 [lb_av] 137.00 [lb_av] [facility] T ([facility]) [place] body weight 115 [lb_av] 115 [lb_av] [facility] T ([facility]) Oxygen saturation in Arterial blood by Pulse oximetry 98 % 98 % [facility] Body temperature 98.8 [degF] 98.8 [degF] [facility] ([facility]) Respiratory rate 18 /min 18 /min [facility] ( [facility]) Heart rate 77 /min 77 /min [facility] ([facility]) Body mass index (BMI) [Ratio] 24.7 kg/m2 24.7 k g/m2 [facility] ([facility]) Body weight 139.50 [lb_av] 139.50 [lb_av] [facility] T ([facility]) Body height 63 [in_i] 63 [in_i] [facility] ([facility] 5'3" Diastolic blood pressure 74 mm[Hg] 74 mm[Hg] [facility] ([facility]) Systolic blood pressure 128 mm[Hg] 128 mm[Hg] M [facility] ([facility]) [place] body weight 115 [lb_av] 115 [lb_av] [facility] T ([facility]) Oxygen saturation in Arterial blood by Pulse oximetry 99 % 99 % [facility] ([facility]) Body temperature 98.1 [degF] 98.1 [degF] [facility] ([facility]) Respiratory rate 18 /min 18 /min [facility] ( [facility]) Heart rate 70 /min 70 /min [facility] ([facility]) Body mass index (BMI) [Ratio] 24.4 kg/m2 24.4 k g/m2 [facility] ([facility]) Body weight 137.50 [lb_av] 137.50 [lb_av] [facility] T ([facility]) Body height 63 [in_i] 63 [in_i] [facility] ([facility]) 5'3" Diastolic blood pressure 78 mm[Hg] 78 mm[Hg] [facility] ([facility]) Systolic blood pressure 132 mm[Hg] 132 mm[Hg] M [facility] ([facility]) Oxygen saturation in Arterial blood by Pulse oximetry 100 % 100 % [facility] ([facility]) Body temperature 97.9 [degF] 97.9 [degF] [facility] ([facility]) Respiratory rate 18 /min 18 /min [facility] ( [facility]) Heart rate 53 /min 53 /min [facility] ([facility]) Body mass index (BMI) [Ratio] 24.2 kg/m2 24.2 k g/m2 [facility] ([facility]) Body weight 136.38 [lb_av] 136.38 [lb_av] [facility] T ([facility]) Body height 63 [in_i] 63 [in_i] [facility] ([facility]) 5'3" Diastolic blood pressure 80 mm[Hg] 80 mm[Hg] [facility] ([facility]) Systolic blood pressure 136 mm[Hg] 136 mm[Hg] M [facility] ([facility]) Diastolic blood pressure--sitting 68 mm[Hg] 68 mm[Hg] [facility] ([facility]) adult cuff, Ra Systolic blood pressure--sitting 120 mm[Hg] 120 mm[Hg] [facility] ([facility]) adult cuff, Ra Heart rate 71 /min 71 /min [facility] ([facility]) Body mass index (BMI) [Ratio] 23.7 kg/m2 23.7 k g/m2 [facility] ([facility]) Body height 63 [in_i] 63 [in_i] [facility]) 5'3" Body weight 134.00 [lb_av] 134.00 [lb_av] [facility] T ([facility]) Oxygen saturation in Arterial blood by Pulse oximetry 99 % 99 % [facility] ([facility]) Body temperature 98.1 [degF] 98.1 [degF] [facility] ([facility]) Respiratory rate 18 /min 18 /min [facility] ( [facility]) Heart rate 49 /min 49 /min [facility] ([facility]) Body mass index (BMI) [Ratio] 23.8 kg/m2 23.8 k g/m2 [facility] ([facility]) Body weight 134.25 [lb_av] 134.25 [lb_av] [facility] T ([facility]) Body height 63 [in_i] 63 [in_i] [facility] ([facility]) 5'3" Diastolic blood pressure 64 mm[Hg] 64 mm[Hg] [facility] ([facility]) Systolic blood pressure 132 mm[Hg] 132 mm[Hg] Zhanna ROSA ([facility]) Patient Treatment Plan of Care Planned Activity Planned Date Details Description Data Source (s) Amlodipine 5 MG Oral Tablet 04/14/2020 12:00:00 AM EST [facility] rivaroxaban 20 MG Oral Tablet 04/13/2020 12:00:00 AM EST [facility] rivaroxaban 15 MG Oral Tablet [facility] Diltiazem Hydrochloride 30 MG Oral Tablet [facility] Atenolol 25 MG Oral Tablet [facility]
[2020-05-30 04:39] LABS: BASO % 0.4 % (0.0-1.0); EOS # 0.1 10^3/uL (0.0-0.5); EOS % 1.2 % (0.0-3.0); HEMATOCRIT 42.2 % (36.0-47.0); HEMOGLOBIN 14.4 g/dl (12.0-15.5); LYMPH # 2.5 10^3/uL (1.5-5.0); LYMPH % 37.3 % (24.0-44.0); MEAN CORPUSCULAR HEMOGLOBIN 30.7 pg (27.0-33.0); MEAN CORPUSCULAR HGB CONC 34.1 g/dl (32.0-36.5); MONO # 0.7 10^3/uL (0.0-0.8); MONO % 10.5 % (2.0-8.0); NEUTROPHILS # 3.4 10^3/uL (1.5-8.5); NEUTROPHILS % 50.3 % (36.0-66.0); PLATELET COUNT, AUTOMATED 244 10^3/uL (150-450); RED BLOOD COUNT 4.69 10^6/uL (4.00-5.40); WHITE BLOOD COUNT 6.7 10^3/uL (4.0-10.0)
[2020-05-30 04:52] LABS: INR 1.68; PROTHROMBIN TIME 20.2 SECONDS (12.5-14.3)
[2020-05-30 04:53] LABS: PARTIAL THROMBOPLASTIN TIME 38.4 SECONDS (24.2-38.5)
[2020-05-30 05:12] LABS: ALBUMIN 3.8 GM/DL (3.2-5.2); ALT/SGPT 43 U/L (12-78); BILIRUBIN,DIRECT 0.2 MG/DL (0.0-0.2); BILIRUBIN,TOTAL 0.7 MG/DL (0.2-1.0); BLOOD UREA NITROGEN 15 MG/DL (7-18); CALCIUM LEVEL 9.5 MG/DL (8.8-10.2); CARBON DIOXIDE LEVEL 29 MEQ/L (21-32); CHLORIDE LEVEL 106 MEQ/L (98-107); CK-MB VALUE MASS 1.5 NG/ML (<3.6); CPK CREATINE PHOSPHOKINASE 62 U/L (26-192); CREATININE FOR GFR 0.76 MG/DL (0.55-1.30); FREE T4 1.22 NG/DL (0.76-1.46); GLOMERULAR FILTRATION RATE > 60.0 (>45); GLUCOSE, FASTING 85 MG/DL (70-100); LIPASE 235 U/L (73-393); MAGNESIUM LEVEL 2.1 MG/DL (1.8-2.4); MB/CK RELATIVE INDEX 2.42 (< OR =4); PHOSPHORUS LEVEL 3.6 MG/DL (2.5-4.9); POTASSIUM SERUM 3.9 MEQ/L (3.5-5.1); SODIUM LEVEL 143 MEQ/L (136-145); TOTAL PROTEIN 6.6 GM/DL (6.4-8.2); TROPONIN I < 0.02 NG/ML (< 0.10)
--- NOTE | 2020-05-30 05:18 | REPVR ---
PROCEDURE INFORMATION: Exam: XR Chest, 1 View Exam date and time: 05/30/2020 4:50 AM Age: 65 years old Clinical indication: Chest pain; Type not specified TECHNIQUE: Imaging protocol: XR of the chest Views: 1 view. COMPARISON: CR Abdomen,Flat Upright,PA CHEST 05/26/2020 2:11 PM FINDINGS: Lungs: Unremarkable. No consolidation. Pleural spaces: Unremarkable. No pleural effusion. No pneumothorax. Heart/Mediastinum: Unremarkable. No cardiomegaly. 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 IMPRESSION: No acute findings. Electronically signed by: Abimael Blanchard On 05/30/2020 05:18:10 AM
--- OUTSIDE RECORDS SUMMARY | 2020-05-30 05:38 | CCD ---
Author Author [facility] Organization [facility] Address Unknown Phone Unavailable Care Team Providers Care Manager Urology Name Role Phone ANTECOL, Sabine YOUNG MD [...] Sabine YOUNG MD Unavailable Unavailable ANTECOL, Sabine YONUG MD Unavailable Unavailable ANTECOL, Sabine YOUNG MD [...] Unavailable MARK-DON, DAVE DO Unavailable Unavailable MARK-DON, ADVE DO Unavailable Unavailable MARK-DON, DAVE DO Unavailable [...] is protected by Article 27-F of the [place] State Public Health law. If you continue you may have access to information: Regarding HIV / AIDS; Provided by facilities licensed or operated by the [facility] Office of Mental Health; or Provided by the [facility] Office for People With Developmental Disabilities. If such information is present, then the following [facility] mandated warning applies: This information has been [...] law may result in a fine or penitentiary sentence or both. A general authorization for the release of medical or other information is NOT sufficient authorization for further disc losure. Allergies and Adverse Reactions Type Description Substance Reaction Status Data Source(s ) Propensity to adverse reactions SULFA ANTIBIOTICS Sulfa Antibiotics Rash Low Active [facility] Low Propensity to adverse reactions LACTOSE INTOLERANCE (GI) [place] Intolerance (Gi) Active [facility] Propensity to adverse reactions GLUTEN MEAL Wheat gluten extract Active [facility] Propensity to adverse reactions GARLIC allyl sulfide A ctive [facility] Family History Family Member Name Family Member Gender Family Member Status Date o f Status Description Data Source(s) Unknown Male Problem [facility] ([facility]) Unknown Male Problem [facility] ([facility]) at age 38 Encounters Encounter Providers Location Date Indications Data Source(s ) Outpatient Attender: DAVE AMBROSE DO [facility] 04/21/2020 10:00:00 AM EST [facility] ([facility]) Outpatient Attender: HANNAH GALARZA MD Main Office 04/19/2020 11:00:00 AM EST [facility] ([facility]) Inpatient Attender: Ruchi Harris MDAdmitter: Ruchi douglas MD [email or web address] 04/11/2020 02:03:45 PM EST - 04/13/2020 01:50:00 PM EST [facility] Patient discharged. Outpatient Attender: Nico PATIÑO [facility] 04/07/2020 09:40:00 AM EST MED[facility] ([facility]) Outpatient Attender: Robina PATIÑO Main Office 12/03/2019 02:30:0 0 PM EDT MED[facility] ([facility]) Outpatient Attender: DAVE AMBROSE [facility] 06/24/2019 10:30:00 AM EDT [facility] ([facility]) Outpatient Attender: DAVE AMBROSE [facility] 06/05/2019 10:00:00 AM EST [facility] ([facility]) Outpatient Attender: DAVE AMBROSE [facility] 05/08/2019 12:20:00 PM EST [facility]) Outpatient Attender: Robina PATIÑO Main Office 04/29/2019 12:00:0 0 PM EST [facility] ([facility]) Outpatient Attender: DAVE AMBROSE [facility] 04/07/2019 12:30:00 PM EST [facility] ([facility]) Medications Medication Brand Name Start Date Product Form Dose Route Admi nistrative Instructions Pharmacy Instructions Status Indications Reaction Description Data Source(s) 0.5 mg 05/29/2020 12:00:00 AM EST tablet 30 TAKE ONE TABLET BY MOUTH EVERY DAY NEEDED FOR ANXIETY MAXIMUM DAILY DOSE = 1 TABLET TAKE ONE TABLET BY MOUTH EVERY DAY NEEDED FOR ANXIETY MAXIMUM DAILY DOSE = 1 TABLET SOLD: 05/29/2020 [facility] 0.5 mg 05/27/2020 12:00:00 AM EST tablet [...] EST ORAL active [facility] ([facility]) 5 mg 05/05/2020 12:00:00 AM EST tablet 60 TAKE ONE TABLET BY MOUTH TWICE A DAY FOR RESTING HR>90 BPM TAKE ONE TABLET BY MOUTH TWICE A DAY FOR RESTING HR>90 BPM SOLD: 05/06/2020 [facility] Atenolol 25 MG Oral Tablet Atenolol 05/02/2020 12:00:00 AM EST ORAL completed [facility] ([facility]) Atenolol 25 MG Oral Tablet Atenolol 04/27/2020 12:00:00 AM EST ORAL completed [facility] ([facility]) 80 mg 04/20/2020 12:00:00 AM EST tablet 90 TAKE ONE TABLET BY MOUTH AT BEDTIME TAKE ONE TABLET BY MOUTH AT BEDTIME SOLD: 04/21/2020 [facility] Atenolol 25 MG Oral Tablet ATENOLOL 04/20/2020 12:00:00 AM EST tablet 180 TAKE ONE TABLET BY MOUTH TWICE A DAY TAKE ONE TABLET BY MOUTH TWICE A DAY SOLD: 04/21/2020 [facility] valsartan 80 MG Oral Tablet Valsartan 04/19/2020 12:00:00 AM EST ORAL active [facility] ([facility]) Flecainide Acetate 50 MG Oral Tablet Flecainide Acetate 03/2021 12:00:00 AM EST ORAL active [facility] ([facility]) Atenolol 25 MG Oral Tablet Atenolol 04/19/2020 12:00:00 AM EST ORAL completed [facility] ([facility]) 50 mg 04/15/2020 12:00:00 AM EST tablet 60 TAKE ONE TABLET BY MOUTH TWICE A DAY TAKE ONE TABLET BY MOUTH TWICE A DAY SOLD: 04/15/2020 [facility] Atenolol 50 MG Oral Tablet ATENOLOL 04/15/2020 [...] , DO NOT TAKE COQ10 SOLD: 04/15/2020 [facility] Flecainide Acetate 50 MG Oral Tablet Flecainide Acetate 10/2020 12:00:00 AM EST ORAL completed [facility] ([facility]) Atenolol 50 MG Oral Tablet Atenolol 04/14/2020 12:00:00 AM EST ORAL completed [facility] ([facility]) Mirtazapine 15 MG Oral Tablet Mirtazapine 04/14/2020 12:00:00 AM EST completed [facility] ([facility]) rivaroxaban 20 MG Oral Tablet [Xarelto] Xarelto 04/14/2020 12:00:0 0 AM EST ORAL active [facility] ([facility]) Amlodipine 5 MG Oral Tablet amLODIPine (NORVASC) 5 MG tablet amLODIPine (NORVASC) 5 MG tablet 04/14/2020 12:00:00 AM EST 5 mg Oral active Take 1 tablet (5 mg total) by mouth daily [facility] 5 mg 04/13/2020 12:00:00 AM EST [...] mg total) by mouth daily with dinner [facility] 2 ML Midazolam 1 MG/ML Injection midazolam (VERSED) in jection midazolam (VERSED) injection 04/12/2020 02:11:53 PM EST active As needed, Starting Sat04/12/20 at 1411, Intra-Procedure [facility] Medication administered onsite fentaNYL Citrate (PF) (SUBLIMAZE) injection [id number] 04/12/2020 02:11:40 PM EST active As neede d, Starting Sat04/12/20 at 1411, Intra-Procedure [facility] Medication administered onsite Diltiazem Hydrochloride 60 MG Oral Tablet diltiazem (C ARDIZEM) tablet 60 mg diltiazem (CARDIZEM) tablet 60 mg 04/11/2020 06:00:00 PM EST 60 mg Oral active 60 mg, Oral, Every 6 hours (scheduled), First dose on Sat04/11/20 at 1800 [facility] Medication administered onsite rivaroxaban 20 MG Oral Tablet rivaroxaban (XARELTO) ta blet 20 mg rivaroxaban (XARELTO) tablet 20 mg 04/11/2020 06:00:00 PM EST 20 mg Oral active 20 mg, Oral, Daily with dinner, First dose on Sat04/11/20 at 1800 [facility] Medication administered onsite ondansetron (ZOFRAN) injection 4 mg [id number] 04/11/2020 03:32:1 5 PM EST 4 mg Intravenous active 4 mg, In travenous, Every 4 hours PRN, nausea, vomiting, Starting Sat04/11/20 at 1532 [facility] Medication administered onsite Acetaminophen 325 MG Oral Tablet acetaminophen (TYLENO L) 325 MG tablet 650 mg acetaminophen (TYLENOL) 325 MG tablet 650 mg 04/11/2020 03:32:15 PM EST 650 mg Oral active 650 mg, Or al, Every 4 hours PRN, mild pain (1-3), headaches, Starting Sat04/11/20 at 1532
"Maximum dose of acetaminophen is 4,000 mg from all sources in 24 hours."
[facility] Medication administered onsite 60 mg 04/11/2020 12:00:00 AM EST tablet 120 TAKE ONE TABLET BY MOUTH EVERY 6 HOURS TAKE ONE TABLET BY MOUTH EVERY 6 HOURS SOLD: 04/13/2020 [email or web address] Atenolol 25 MG Oral Tablet ATENOLOL 04/11/2020 12:00:00 AM EST tablet 30 TAKE ONE TABLET BY MOUTH AT BEDTIME TAKE ONE TABLET BY MOUTH AT BEDTIME SOLD: 04/13/2020 [facility] 10 mg 04/07/2020 12:00:00 AM EST capsule 90 TAKE ONE CAPSULE BY MOUTH EVERY 8 HOURS NEEDED FOR DIARRHEA TAKE ONE CAPSULE BY MOUTH EVERY 8 HOURS NEEDED FOR DIARRHEA SOLD: 04/07/2020 [facility] Dicyclomine Hydrochloride 10 MG Oral Capsule Dicyclomine HCL 04/06/2020 12:00:00 AM EST ORAL completed [facility] ([facility]) 30 mg 04/04/2020 12:00:00 AM EST tablet 120 TAKE ONE TABLET BY MOUTH FOUR TIMES A DAY TAKE ONE TABLET BY MOUTH FOUR TIMES A DAY SOLD: 04/04/2020 [facility] Diltiazem Hydrochloride 30 MG Oral Tablet Diltiazem HCL 04/04/2020 12:00:00 AM EST ORAL completed [facility] ([facility]) 24 HR Diltiazem Hydrochloride 120 MG Extended Release Oral Capsule DILTIAZEM HCL 04/03/2020 12:00:00 AM EST capsule,extended release 24hr 60 TAKE TWO CAPSULES (240MG)BY MOUTH ONCE DAILY TAKE TWO CAPSULES (240MG)BY MOUTH ONCE DAILY SOLD: 04/03/2020 [facility] 250 mcg (0.25 mg) 04/02/2020 12:00:00 AM EST tablet 30 TAKE ONE TABLET BY MOUTH EVERY DAY TAKE ONE TABLET BY MOUTH EVERY DAY SOLD: 04/03/2020 [facility] 15 mg 04/02/2020 12:00:00 AM EST tablet 30 TAKE ONE TABLET BY MOUTH EVERY DAY AT 6P.M. TAKE ONE TABLET BY MOUTH EVERY DAY AT 6P.M. SOLD: 04/03/2020 [facility] rivaroxaban 15 MG Oral Tablet [Xarelto] Xarelto 04/02/2020 12:00:0 0 AM EST ORAL completed [facility] ([facility]) 24 HR Diltiazem Hydrochloride 300 MG Extended Release Oral Capsule Diltiazem HCL ER Beads 03/31/2020 12:00:00 AM EST ORAL completed [facility] ([facility]) 20 mg 10/12/2019 12:00:00 AM EDT tablet 90 TAKE ONE TABLET BY MOUTH EVERY DAY TAKE ONE TABLET BY MOUTH EVERY DAY SOLD: 10/15/2019 [facility] 20 mg 10/12/2019 12:00:00 AM EDT [...] Doxycycline Monohydrate 100 MG Oral Capsule Doxycycline Wise hydrate 04/28/2019 12:00:00 AM EST ORAL active M EDENT ([facility]) Atenolol 25 MG Oral Tablet Atenolol 04/28/2019 12:00:00 AM EST active [facility] ([facility] 100 mg 03/30/2019 12:00:00 AM [...] by mouth 4 (four) times a day [facility] rivaroxaban 15 MG Oral Tablet rivaroxaban (XARELTO) 15 MG TABS rivaroxaban (XARELTO) 15 MG TABS 15 mg Oral aborted Sabas e 15 mg by mouth daily [facility] Atenolol 25 MG Oral Tablet atenolol (TENORMIN) 25 MG t ablet atenolol (TENORMIN) 25 MG tablet 25 mg Oral aborted Take 25 mg by mouth daily [facility] Insurance Providers Payer name Policy type / Coverage type Policy ID Covered republican ID Covered republican's relationship to saldaña Policy [place]daña Plan Information [facility]MR [facility] [id number] SP [id number] MEDICARE [id number] SP [id number] [facility] [id number] SP [id number] UMR O [id number] S [id number] MEDICARE C [id number] S [id number] MEDICARE [id number] MEDICARE [id number] Regla [id number] Umr Commercial [id number] Self [id number] UMR [facility] [id number] SP [id number] Umr Commercial [id number] Self [id number] Umr Medigap Part B [id number] Self [id number] [employer] Ppo Commercial [id number] Self [id number] Umr Medigap Part B [id number] Self [id number] Umr Commercial [id number] Self [id number] Umr Commercial [id number] Self [id number] Umr Commercial [id number] Self [id number] Umr Commercial [id number] Self [id number] Umr Commercial [id number] Self [id number] Umr Commercial [id number] Self [id number] Umr Commercial [id number] Self [id number] Umr Commercial [id number] Self [id number] Umr Commercial [id number] Self [id number] Umr Commercial [id number] Self [id number] POMCO [id number] S [id number] Umr Commercial [id number] Self [id number] Umr Medigap Part B [id number] Self [id number] Umr Medigap Part B [id number] Self [id number] Umr Commercial [id number] Self [id number] Umr Commercial [id number] Self [id number] Umr Commercial [id number] Self [id number] Umr Commercial [id number] Self [id number] [id number] Umr Commercial [id number] Self [id number] Umr Commercial [id number] Self [id number] Umr Commercial [id number] Self [id number] [id number] Umr Commercial [id number] Self [id number] Umr Commercial [id number] Self [id number] Umr Commercial [id number] Self [id number] Umr Medigap Part B [id number] Self [id number] POM[employer] [id number] SP [id number] [employer] PH[employer] Ppo Commercial [id number] Self [id number] POMCO COMM SELF [id number] S [id number] Problems, Conditions, and Diagnoses Code Display Name Description Problem Type Effective Dates Data Source(s) 701775730 Paroxysmal atrial fibrillation Paroxysmal atrial fibri llation Problem 04/19/2020 12:00:00 AM EST [facility] ([facility]) [id number] Essential hypertension Essential hypertension Problem 04/19/2020 12:00:00 AM EST [facility] ([facility]) I48.3 Typical atrial flutter Typical atrial flutter [id number] 04/11/2020 12:00:00 AM [facility] I48.92 Atrial flutter Atrial flutter [id number] 04/11/2020 12:00: 00 AM [facility] I48.3 Typical atrial flutter Typical atrial flutter Diagnosi s 04/11/2020 02:03:45 PM [facility] I48.92 Unspecified atrial flutter Unspecified atrial flutter Diagnosis 04/11/2020 02:03:45 PM [facility] Surgeries/Procedures Procedure Description Date Indications Data Source(s) ECG ROUTINE ECG W/LEAST 12 LDS W/I&R 04/19/2020 12:00: 00 AM EST [facility] ([facility]) Arterial Pressure Waveform Analysis For Assessment Of Centra l Art 04/19/2020 12:00:00 AM EST [facility] ([facility] BLOOD COUNT COMPLETE AUTOMATED CBC Routine 04/13/2020 4:23 A M EST 04/13/2020 09:23:[address] [facility] BASIC METABOLIC PANEL CALCIUM TOTAL BASIC METABOLIC PANEL Routi ne 04/13/2020 4:23 AM EST 04/13/2020 09:23:[address] [facility] EP STUDY EP STUDY Routine 04/12/2020 2:29 PM EST Typical atrial flutter 04/12/2020 07:29:52 PM EST Typical atrial flutter [facility] Typical atrial flutter ECHO TTHRC R-T 2D W/WOM-MODE COMPL SPEC&COLR DOP ECHOCARDIO GRAM TRANSTHORACIC Routine 04/12/2020 7:30 AM EST 04/12/2020 12:30:00 PM EST [facility] ECG ROUTINE ECG W/LEAST 12 LDS TRCG ONLY W/O I&R ECG 12-LEAD Routine 04/12/2020 6:35 AM EST 04/12/2020 11:35:16 AM EST [facility] BLOOD COUNT COMPLETE AUTOMATED CBC Routine 04/12/2020 5:19 A M EST 04/12/2020 10:19:[address] [facility] BASIC METABOLIC PANEL CALCIUM TOTAL BASIC METABOLIC PANEL Routi ne 04/12/2020 5:19 AM EST 04/12/2020 10:19:[address] [facility] THROMBOPLASTIN TIME PARTIAL PLASMA/WHOLE BLOOD APTT Routine 04/11/2020 2:55 PM EST 04/11/2020 07:55:[address] [facility] PROTHROMBIN TIME PROTIME-INR Routine 04/11/2020 2:55 PM EST 04/11/2020 07:55:00 PM EST [facility] BLOOD COUNT COMPLETE AUTOMATED CBC Routine 04/11/2020 2:55 P M EST 04/11/2020 07:55:[address] [facility] COMPREHENSIVE METABOLIC PANEL COMPREHENSIVE METABOLIC PANEL Rou elder 04/11/2020 2:55 PM EST 04/11/2020 07:55:[address] [facility] ECG ROUTINE ECG W/LEAST 12 LDS W/I&R ECG 12-LEAD Routine 04/11/2020 2:01 PM EST 04/11/2020 07:01:[address] [facility] Electrocardiogram Complete 04/07/2020 12:00:00 AM EST [facility] ([facility]) ECG ROUTINE ECG W/LEAST 12 LDS W/I&R 12/03/2019 12:00: 00 AM EDT [facility] ([facility]) Omt 7-8 Body Regions 06/24/2019 12:00:00 AM EDT [facility] ([facility]) Omt 7-8 Body Regions 06/05/2019 12:00:00 AM EST [facility] ([facility]) Omt 7-8 Body Regions 05/08/2019 12:00:00 AM EST [facility] ([facility]) ECG ROUTINE ECG W/LEAST 12 LDS W/I&R 04/29/2019 12:00: 00 AM EST [facility] ([facility]) Omt 7-8 Body Regions 04/07/2019 12:00:00 AM EST [facility] ([facility]) Results ID Date Data Source [id number] 2020 01:51:00 PM EST [facility] ([facility]) Name Value Range Interpretation Code Description Data Kathi rce(s) Supporting Document(s) Laboratory test finding (navigational concept) 41.0 % 3 8.0-51.0 Normal (applies to non-numeric results) [facility] ([facility]) Laboratory test finding (navigational concept) 140 meq/L 1 36-145 Normal (applies to non-numeric results) [facility] ([facility]) Laboratory test finding (navigational concept) 92 mg/dL 7 0-105 Normal (applies to non-numeric results) [facility] ([facility]) Laboratory test finding (navigational concept) 104 meq/L 9 8-109 Normal (applies to non-numeric results) [facility] ([facility]) Laboratory test finding (navigational concept) 4.7 mg/dL 4 .5-5.3 Normal (applies to non-numeric results) [facility] Laboratory test finding (navigational concept) 4.1 meq/L 3 .5-5.1 Normal (applies to non-numeric results) [facility] ([facility]) Laboratory test finding (navigational concept) 18 mg/dL 8 -26 Normal (applies to non-numeric results) [facility] ([facility]) Laboratory test finding (navigational concept) 27.0 MM/L 2 3.0-27.0 Normal (applies to non-numeric results) [facility] ([facility]) Laboratory test finding (navigational concept) 0.7 mg/dL 0 .6-1.3 Normal (applies to non-numeric results) [facility] ([facility]) ID Date Data Source [id number] 05/22/2020 04:48:00 PM EST [facility] ([facility]) Name Value Range Interpretation Code Description Data Kathi rce(s) Supporting Document(s) White Blood Count 7.6 10 4.0-10.0 Normal (applies to non-numeri c results) [facility] ([facility]) Hematocrit 42.5 % 36.0-47.0 Normal (applies to non-numeric resul ts) [facility] ([facility]) Hemoglobin 14.7 g/dL 12.0-15.5 Normal (applies to non-numeric resul ts) [facility] ([facility]) Red Blood Count 4.74 10 4.00-5.40 Normal (applies to non-numeric results) [facility] ([facility]) Mean Corpuscular HGB Conc 34.6 g/dL 32.0-36.5 Normal (applies to non-numeric results) [facility] ([facility]) Mean Corpuscular Volume 89.7 fl 80.0-96.0 Normal ( applies to non-numeric results) [facility] ([facility]) Mean Corpuscular Hemoglobin 31.0 pg 27.0-33.0 Norm al (applies to non-numeric results) [facility] ([facility]) Neutrophils % 63.4 % 36.0-66.0 Normal (applies to non-numeric re sults) [facility] ([facility]) Red Cell Distribution Width 12.0 % 11.5-14.5 Norm al (applies to non-numeric results) [facility] ([facility]) Platelet Count, Automated 249 10 150-450 Normal (applies to non-numeric results) [facility] ([facility]) Wise % 9.6 % 2.0-8.0 Above high normal [facility] ([facility]) Eos % 0.5 % 0.0-3.0 Normal (applies to non-numeric resul ts) [facility] ([facility]) Lymph % 25.7 % 24.0-44.0 Normal (applies to non-numeric resul ts) [facility] ([facility]) Baso % 0.4 % 0.0-1.0 Normal (applies to non-numeric resul ts) [facility] ([facility]) Immature Granulocyte % 0.4 % 0-3.0 Normal (applies to non-n umeric results) [facility] ([facility]) Nucleated Red Blood Cell % 0.0 % 0-0 Normal (applies to n on-numeric results) [facility] ([facility]) Neutrophils # 4.8 10 1.5-8.5 Normal (applies to non-numeric re sults) [facility] ([facility]) Wise # 0.7 10 0.0-0.8 Normal (applies to non-numeric resul ts) [facility] ([facility]) Lymph # 2.0 10 1.5-5.0 Normal (applies to non-numeric resul ts) [facility] ([facility]) Eos # 0.0 10 0.0-0.5 Normal (applies to non-numeric resul ts) [facility] ([facility]) Baso # 0.0 10 0.0-0.2 Normal (applies to non-numeric resul ts) [facility] ([facility]) ID Date Data Source [id number] 05/22/2020 04:47:00 PM EST [facility] ([facility]) Name Value Range Interpretation Code Description Data Kathi rce(s) Supporting Document(s) Lipase [Enzymatic activity/volume] in Serum or Plasma 371 U/L 73-393 Normal (applies to non-numeric results) [facility] ([facility]) ID Date Data Source [id number] 05/22/2020 04:47:00 PM EST [facility] ([facility]) Name Value Range Interpretation Code Description Data Kathi rce(s) Supporting Document(s) Glucose, Fasting 77 mg/dL 70-100 Normal (applies to non-numeric results) [facility] ([facility]) Creatinine For GFR 0.86 mg/dL 0.55-1.30 Normal (applies to non -numeric results) [facility]) Blood Urea Nitrogen 21 mg/dL 7-18 Above high normal [facility] ([facility]) Glomerular Filtration Rate Laboratory test result Normal (applies to non- numeric results) [facility] ([facility]) <content>Units are mL/min/1.73 m2</content>
<content></content>
<content>Chronic Kidney Disease Staging per NKF:</content>
<content></content>
<content>Stage I & II GFR >=60 Normal to Mildly Decreased</content>
<content>Stage III GFR 30-59 Moderately Decreased</content>
<content>Stage IV GFR 15-29 Severely Decreased</content>
<content>Stage V GFR <15 Very Little GFR Left</content>
<content>ESRD GFR <15 on RFID MANAGER</content>
<content></content> Sodium Level 142 meq/L 136-145 Normal (applies to non-numeric res ults) [facility] ([facility]) Potassium Serum 4.0 meq/L 3.5-5.1 Normal (applies to non-numeric results) [facility] ([facility]) Chloride Level 107 meq/L 98-107 Normal (applies to non-numeric r esults) [facility] ([facility]) Carbon Dioxide Level 27 meq/L 21-32 Normal (applies to non-num pop results) [facility] ([facility]) Anion Gap 8 meq/L 8-16 Normal (applies to non-numeric resul ts) [facility] ([facility]) Calcium Level 9.2 mg/dL 8.8-10.2 Normal (applies to non-numeric re sults) [facility] ([facility]) ID Date Data Source [id number] 05/22/2020 04:47:00 PM EST [facility] ([facility]) Name Value Range Interpretation Code Description Data Kathi rce(s) Supporting Document(s) Ast/Sgot 33 U/L 7-37 Normal (applies to non-numeric resul ts) [facility] ([facility]) Alt/SGPT 49 U/L 12-78 Normal (applies to non-numeric resul ts) [facility] ([facility]) Alkaline Phosphatase 101 U/L 45-117 Normal (applies to non-num pop results) [facility] ([facility]) Bilirubin,Total 0.4 mg/dL 0.2-1.0 Normal (applies to non-numeric results) [facility] ([facility]) Total Protein 6.5 GM/DL 6.4-8.2 Normal (applies to non-numeric re sults) [facility] ([facility]) Bilirubin,Direct 0.1 mg/dL 0.0-0.2 Normal (applies to non-numeric results) [facility] ([facility]) Albumin/Globulin Ratio 1.3 1.2-2.2 Normal (applies to non-n umeric results) [facility] ([facility]) Albumin 3.7 GM/DL 3.2-5.2 Normal (applies to non-numeric resul ts) [facility] ([facility]) ID Date Data Source [id number] 05/22/2020 04:47:00 PM EST [facility] ([facility]) Name Value Range Interpretation Code Description Data Kathi rce(s) Supporting Document(s) CPK Creatine Phosphokinase 58 U/L 26-192 Queenie l (applies to non-numeric results) [facility] ([facility]) CK-MB Value Mass 1.2 ng/mL Normal (applies to non-numeric results) [facility] ([facility]) MB/CK Relative Index 2.07 Normal (applies to non-num pop results) [facility] ([facility]) <content>DIAGNOSIS CRITERIA</content>
<content>MMB ng/ml Relative Index (RI)</content>
<content>NON-AMI < or = 5 N/A</content>
<content>NGUYEN ZONE > 5 < or = 4</content>
<content>AMI > 5 > 4</content>
<content></content> Troponin I Laboratory test result Normal (applies to non-n umeric results) [facility] ([facility]) <content>Troponin I Reference Interval f or Siemens [place] LOCI:</content>
<content></content>
<content>99th Percentile= 0.00-0.045 ng/ml</content>
<content></content>
<content>Risk Stratification:</content>
<content><= 0.10 ng/ml Decreased Risk for Adverse Clinical</content>
<content>Events.</content>
<content>0.10-1.50 ng/ml Increased Risk for Adverse Clinical</content>
<content>Events. Evaluation of additional</content>
<content>criterion and/or repeat testing in 2-6</content>
<content>hours is suggested to rule out myocardial</content>
<content>damage.</content>
<content>>= 1.50 ng/ml Indicative of Myocardial Injury.</content>
<content></content> ID Date Data Source [id number] 04/14/2020 08:40:00 PM EST [facility] ([facility]) Name Value Range Interpretation Code Description Data Kathi rce(s) Supporting Document(s) Laboratory test finding (navigational concept) 0.38 ng/mL 0 .00-0.08 Above high normal [facility] ([facility]) ID Date Data Source [id number] 04/14/2020 08:34:00 PM EST [facility] ([facility]) Name Value Range Interpretation Code Description Data Kathi rce(s) Supporting Document(s) Laboratory test finding (navigational concept) 144 mg/dL 7 0-105 Above high normal [facility] ([facility]) Laboratory test finding (navigational concept) 48.0 % 3 8.0-51.0 Normal (applies to non-numeric results) [facility] ([facility]) Laboratory test finding (navigational concept) 3.8 meq/L 3 .5-5.1 Normal (applies to non-numeric results) [facility] ([facility]) Laboratory test finding (navigational concept) 138 meq/L 1 36-145 Normal (applies to non-numeric results) [facility] ([facility]) Laboratory test finding (navigational concept) 104 meq/L 9 8-109 Normal (applies to non-numeric results) [facility] ([facility]) Laboratory test finding (navigational concept) 4.4 mg/dL 4 .5-5.3 Below low normal [facility] Laboratory test finding (navigational concept) 25.0 MM/L 2 3.0-27.0 Normal (applies to non-numeric results) [facility] ([facility]) Laboratory test finding (navigational concept) 0.7 mg/dL 0 .6-1.3 Normal (applies to non-numeric results) [facility] ([facility]) Laboratory test finding (navigational concept) 23 mg/dL 8 -26 Normal (applies to non-numeric results) [facility] ([facility]) ID Date Data Source [id number] 04/14/2020 08:30:00 PM EST [facility] ([facility]) Name Value Range Interpretation Code Description Data Kathi rce(s) Supporting Document(s) White Blood Count 9.3 10 4.0-10.0 Normal (applies to non-numeri c results) [facility] ([facility]) Hemoglobin 17.0 g/dL 12.0-15.5 Above high normal [facility] ([facility]) Red Blood Count 5.41 10 4.00-5.40 Above high normal [facility] ([facility]) Hematocrit 49.0 % 36.0-47.0 Above high normal [facility] ([facility]) Mean Corpuscular Hemoglobin 31.4 pg 27.0-33.0 Norm al (applies to non-numeric results) [facility] ([facility]) Mean Corpuscular Volume 90.6 fl 80.0-96.0 Normal ( applies to non-numeric results) [facility] ([facility]) Red Cell Distribution Width 11.8 % 11.5-14.5 Norm al (applies to non-numeric results) [facility] ([facility]) Mean Corpuscular HGB Conc 34.7 g/dL 32.0-36.5 Normal (applies to non-numeric results) [facility] ([facility]) Platelet Count, Automated 236 10 150-450 Normal (applies to non-numeric results) [facility] ([facility]) Lymph % 20.4 % 24.0-44.0 Below low normal [facility] ( [facility]) Neutrophils % 68.7 % 36.0-66.0 Above high normal [facility] ([facility]) Wise % 9.3 % 0.0-5.0 Above high normal [facility] ([facility]) Eos % 0.9 % 0.0-3.0 Normal (applies to non-numeric resul ts) [facility] ([facility]) Baso % 0.3 % 0.0-1.0 Normal (applies to non-numeric resul ts) [facility] ([facility]) Immature Granulocyte % 0.4 % 0-3.0 Normal (applies to non-n umeric results) [facility] ([facility]) Neutrophils # 6.4 10 1.5-8.5 Normal (applies to non-numeric re sults) [facility] ([facility]) Nucleated Red Blood Cell % 0.0 % 0-0 Normal (applies to n on-numeric results) [facility] ([facility]) Lymph # 1.9 10 1.5-5.0 Normal (applies to non-numeric resul ts) [facility] ([facility]) Wise # 0.9 10 0.0-0.8 Above high normal [facility] ([facility]) Eos # 0.1 10 0.0-0.5 Normal (applies to non-numeric resul ts) [facility] ([facility]) Baso # 0.0 10 0.0-0.2 Normal (applies to non-numeric resul ts) [facility] ([facility]) ID Date Data Source [id number] 04/14/2020 03:26:00 PM EST [facility] ([facility] Name Value Range Interpretation Code Description Data Kathi rce(s) Supporting Document(s) Hematocrit [Volume Fraction] of Blood by Automated count 49.0 [facility] ([facility]) Hemoglobin [Mass/volume] in Blood 17.0 [facility] ([facility]) Erythrocyte mean corpuscular volume [Entitic volume] by Automate d count 90.6 [facility] ([facility]) Erythrocyte mean corpuscular hemoglobin [Entitic mass] by Au tomated count 31.4 [facility] ([facility]) Erythrocyte mean corpuscular hemoglobin concentration [Mass/volume] by Automated count 34.7 [facility] ([facility]) Neutrophils 68.7 [facility] ([facility]) Platelet mean volume [Entitic volume] in Blood by [place] Laboratory test result [facility] ([facility]) Platelets [#/volume] in Blood by Automated count 236 [facility] ([facility]) Erythrocyte distribution width [Ratio] by Automated count 11.8 [facility] ([facility]) Lymphocytes/100 leukocytes in Body fluid by Manual count 20.4 [facility] ([facility]) Monocytes 9.3 [facility] ([facility] Band form neutrophils/100 leukocytes in Body fluid by Manual count Laboratory test result [facility] ([facility]) Basophils/100 leukocytes in Blood 0.3 [facility] ([facility]) Fluid Body Eosinophils 0.9 [facility] Lymphocytes [#/volume] in Blood 1.9 [facility] ([facility]) Monocytes [#/volume] in Blood 0.9 [facility] ([facility]) Neutrophils [#/volume] in Blood by Automated count 6.4 [facility] ([facility]) Eosinophils [#/volume] in Blood by Automated count 0.1 [facility] ([facility]) Basophils [#/volume] in Blood by Automated count 0.0 [facility] ([facility]) ID Date Data Source [id number] 04/14/2020 03:26:00 PM EST [facility] ([facility]) Name Value Range Interpretation Code Description Data Kathi e(s) Supporting Document(s) Red Blood Count 5.41 4.70-6.20 [facility] ([facility]) Platelets 236 130-400 [facility] ([facility] White Blood Count 9.3 4.3-10.9 [facility] ([facility]) Hemoglobin 17.0 13.0-17.0 [facility] ([facility]) Hematocrit 49.0 39.0-50.0 [facility] ([facility]) ID Date Data Source [id number] 04/13/2020 12:19:30 PM EST [facility]FORMATIONPatient MRN Name Date of Age Gend*PT [id number] Mercy Arreola 1955 64 years F SDCXPT Location Admission Date/Time Visit ID Attending Provider04/11/20 1403 --- Zhanna Harris MD([id number]) EPI ID CSN Admitting Provider [id number] Zhanna Harris MD([id number]) Attestation signed by Zhanna Harris MD at 04/13/2020 12:19 PMATTENDING ADDENDUM:I saw and examined Ms. Arreola today, and agree with the exam, assessment,and plan of damon Benitez, noted above.In brief, Ms. Arreola presents with typical with successful RFA.I agree with the plan as noted above.Beto Harris M.D., [facility], [facility] Cardiac Electrophysiology04/13/2020 12:18 PM --Cardiology Discharge Summary Mercy ArreolaMatheus: [id number] date: 04/11/2020ttending Physician: Zhanna Harris, [facility] Diagnosis: Typical atrial flutterSecondary Diagnoses: Principal Problem: [...] Lyme disease, status post treatment . [place]abeosis, [address]. Atrial flutter status post multiple DC cardioversions. Patient on Xarelto.4. Distant history of tobacco useThe patient presented to [facility]2019 for palpitations witha heart [...] VITAMIN C Take 500 mg by mouth wntlvN-Vvplbex-Z Tabs Take 1 tablet by mouth dailydicyclomine [...] Get Your MedicationsThese medications were sent to [facility] [place] [address] amLODIPine 5 MG tablet rivaroxaban 20 MG [...] Value Range Interpretation Code Description Data Kathi dubon(s) Supporting Document(s) ID Date Data Source [id number] 04/13/2020 06:50:43 AM EST [facility] Name Value Range Interpretation Code Description Data Kathi [facility] Supporting Document(s) SODIUM 139 mmol/L (136-145) [facility] POTASSIUM 4.3 mmol/L (3.6-5.2) [facility] CHLORIDE 105 mmol/L (100-108) [facility] CO2 25 mmol/L (22-31) [facility] ANION GAP 9 mmol/L (7-16) [facility] UREA NITROGEN 25 mg/dL (7-24) H [facility] CREATININE 0.80 mg/dL (0.60-1.00) [facility] BUN/CREAT RATIO 31.3 RATIO (10.0-20.0) [facility] GLUCOSE 71 mg/dL (70-99) [facility] CALCIUM 8.9 mg/dL (8.4-10.2) [facility] GFR >60 ml/min/1.73m2 (>59) [facility] GFR ( AMER) >60 ml/min/1.73m2 (>59) [facility] GFR INTERPRETATION [facility] --NORMAL KIDNEY FUNCTION OR MILD DISEASE - GFR >OR= 60CHRONIC KIDNEY DISEASE - GFR 15 - 59RENAL FAILURE - GFR <15 Est. GFR calculation based on the MDRDstudy equation, which assumes a steadystate for creatinine. Est. GFR should notbe used for medication dosing. ID Date Data Source [id number] 04/13/2020 04:36:41 AM EST [facility] Name Value Range Interpretation Code Description Data Kathi [facility] Supporting Document(s) WBC 8.8 10*3/uL (4.1-11.0) [facility] RBC 5.24 10*6/uL (4.00-5.40) [facility] HGB 17.1 g/dL (12.0-16.0) H [facility] HCT 49.1 % (36.0-47.0) [facility] [place] [address] [place] [address] MCV 93.7 fL (80.0-95.0) [facility] MCH 32.6 pg (27.0-32.0) H [facility] MCHC 34.8 g/dL (32.0-36.0) [facility] RDW 12.4 % (10.5-14.5) [facility] PLT 234 10*3/uL (150-450) [facility] MPV 7.6 fL (7.1-10.7) [facility] ID Date Data Source [id number] 04/12/2020 02:52:26 PM EST [facility] Name Value Range Interpretation Code Description Data Kathi rce(s) Supporting Document(s) &PDF [facility] UCZJSd0aKvNAOcLn10/KESceFYGqe7BkXTsuRVn1EUyaKAGqZ7UyrSomXPOOFntRP2wIMYpMZb4sHFIe waW [file] EOS6NBJz== ID Date Data Source [id number] 04/12/2020 10:05:42 AM EST [facility] Name Value Range Interpretation Code Description Data Kathi rce(s) Supporting Document(s) &PDF [facility] AIRPTw4qByXQVeGx04/ITDpqCWLfu1QjETmkSBz0ZLjlWMTlX8QhhQgmDLVAEkaLL9jXKVfYLu9dTQAx waW [file] heel sewer+eRgwRmy1pmaEOCV0EvoNM72wl37Wa1ezHS4CNg [file] AgICAgICAgICAgICAgICAgICAgICAgICAgICAgICAgICAgICAgICAgICAgICAgICAgICAgICAgICAgIC AgICAgICAgICAgICAgICANCiAgICAgICAgICAgICAg ICAgICAgICAgICAgICAgICAgICAgICAgICAgICAgICAgICAgICAgICAgICAgICAgICAgICAgICAgICAg ICAgICAgICAgICAgICAgICAgICAgICAgICANCiAgICAgICAgICAgICAgICAgICAgICAgICAgICAgICAg ICAgICAgICAgICAgICAgICAgICAgICAgICAgICAgIC AgICAgICAgICAgICAgICAgICAgICAgICAgICAgICAgICAgICANCiAgICAgICAgICAgICAgICAgICAgIC AgICAgICAgICAgICAgICAgICAgICAgICAgICAgICAgICAgICAgICAgICAgICAgICAgICAgICAgICAgIC AgICAgICAgICAgICAgICAgICANCiAgICAgICAgICAg ICAgICAgICAgICAgICAgICAgICAgICAgICAgICAgICAgICAgICAgICAgICAgICAgICAgICAgICAgICAg ICAgICAgICAgICAgICAgICAgICAgICAgICAgICANCiAgICAgICAgICAgICAgICAgICAgICAgICAgICAg ICAgICAgICAgICAgICAgICAgICAgICAgICAgICAgIC AgICAgICAgICAgICAgICAgICAgICAgICAgICAgICAgICAgICAgICANCiAgICAgICAgICAgICAgICAgIC AgICAgICAgICAgICAgICAgICAgICAgICAgICAgICAgICAgICAgICAgICAgICAgICAgICAgICAgICAgIC AgICAgICAgICAgICAgICAgICAgICANCiAgICAgICAg ICAgICAgICAgICAgICAgICAgICAgICAgICAgICAgICAgICAgICAgICAgICAgICAgICAgICAgICAgICAg ICAgICAgICAgICAgICAgICAgICAgICAgICAgICAgICANCiAgICAgICAgICAgICAgICAgICAgICAgICAg ICAgICAgICAgICAgICAgICAgICAgICAgICAgICAgIC AgICAgICAgICAgICAgICAgICAgICAgICAgICAgICAgICAgICAgICAgICANCiAgICAgICAgICAgICAgIC AgICAgICAgICAgICAgICAgICAgICAgICAgICAgICAgICAgICAgICAgICAgICAgICAgICAgICAgICAgIC AgICAgICAgICAgICAgICAgICAgICAgICANCjw/eHBh Q8zimBXfuaS7Q4wtTk2FMu6YGR4ix1TuZIKlVMzqvbZwYmzYEpEsMRZvPksXZap7CPvyHM3VtRYcD3Pq O3NsRZztMX0ZEOJdVMXbwNOsTFMyOWVjJbU9YQIgPKzsZA3ChGKeKVjxEFOkJWMqGvJrBEIaJVAxRIVf MD6NFGGxM777fsEvBb7SLq4LRkZaRK4suc5YOwfbWL OpRbrGMwr9NVrwBP9SuLHzY7YtbSMrq5xWSkKsN8MNKOH9JRUkPq5SNZJsCpGzHZFmSCxbUH6nZWDwMQ SQyOaotlA0HR4HJH9ajjDxBO5NRaVkCb4cXp7QFcBwV4CeP9WyZANuTECTZWodCO3WVXAkKRA1GMDwSw WbNBYYRzRkY93yAI8JQ3Dlz18eIoT0OUHjWyAfVIws RT36wPjspsEkzUVogLfgDV3WYa8+EKaefpYnWnoXWqzaNBKXZtLmAuxGAwFuJIKyLETmYWTzGpC3GbSo Gz6OQDMuSTUyUNElXkEzMBKkGIUvSPxvPUPsPCX5TEQ0ADLwRRTeQD7MRtMfHDGyEvl4BhHeFEFhGBDx ro7QDUUsEBNjNYF3BFWaQCYpYRQmHWztSXNiGLDlKZ KeAWMiYPZcJH8SWcUcOEVqUCBkTqdjDSEuMYSnrw5FLIYpETRyAdB6QkSjPYIvMVPoZMbjNCCtPMD0Dz w4YYXuJHGfZX4GDxUuAVMeWOf9WlrbUEJlBNCdks6XKVXdERGpGxc3NdKzWIWpBTImYYgbOQQwFXG3GW QwRFZpQVBwDU7WXxZpGMZtUTz9TEfyQBChDMAegx0L TTGoUATsFMF7RiJpASPyEAMfHLzoASWjBQZyHRQaNNFsVJWgUV0HAxZtHRCxDZCzTFBiRUWzQEZpwn3U LYJvANYsLIHoHZLjAWKcGZYqBNzvFWHnNAE5Qqh6OQWlMYDlGU5NFfEmCCOdQZN8BGUwWNAdOEPbrx7H MHMrLEDfKZboAgUxHAAsLGZkCSmwNFLzXTP9QKB4OU DeXPCyXV0RYxGiSVLgLDOwVBQlZKAfUZFhvk8FWTNgBJHjIpS2QHQrNBPxMYStEGpwMBKpCAE0IDPnPT LxPRJtXT6ZQpGrRVDoYQu2EBTkSMRyOOTdpa7BOCKlMMOpZfW0FUPxKTBeOTWuKNkiWUYvRCD3PNG8QF KkDVPqCX8PCcEiTEDgSpa3VVAvWIWkEFIqpt2FMTEk GWEeINdmThAnLVPoGUWdEFc9spIlrFQiPAx4ML2QU1XuuhHsEdkUEo5Id058ZPE2QQVuBj2TC2iyGl7n YQKtWANFVo7KVJv0LrL8XNQqUyh7PXUfN3R3ERltU6CiPiA5Z4S6RKS6GWC+TIsbNMs5KSNeASlnGPAx LlmlKcW3CPKpQMM2FyLfFYa6Hm3bNMQFHw3+LBimzHQemFyzQWRFSdK1QRK9QQwwNIISQk2A ID Date Data Source [id number] 04/12/2020 08:37:17 AM EST [facility] Name Value Range Interpretation Code Description Data Kathi rce(s) Supporting Document(s) EKG [facility] VKQJIn1iYdKAAdOov2FoRkUpPTBvGU0nwks9U8E4zFGwO1VwqINmx1ayO9AqI7XyIJEaGEJMSR8QhBKg jb2 [file] P3y8zwFBImKaXS/1SBluJ3mwGgDw8H20aOKrAja7WHixGQ4/+7m0HrG0I/69y8yec/Yq9v+TIx6p+repair service dispatcher ER4gscba6X/6VzMD8xMu8ZApOfbS4B8C3+7AK4T8DU+H/cyuGUvJ6EAnbD+hTTwkAByF+uyf/ccnYZWA MgS2jFOv8TR6XmYoNcwZYaEOBYmI6JFib2tWEYQWFT gJfFU4ZEK2EtFcOQtBEzLSCeroSioyuFGaZLQuwRIQj/oAUkTdBES+wVsIOrVvUVkdyPwDZAFTC8fAPY pbYyIJ1nYzkpTNAUfRohDCdPB2HpSSY7f1OkYOVauQijqbdBPm+CB6NRkgBu7M9jxwtnErmeH+gC+X76 1I6+xN36KDoOQcLGWWb5aivmRHFE4HcRZ50zwIWw72 PlNqpYpHihNVNyCYlas21SfJFeanhPKbkanjK3Iq7tQGeQgBwMLGY1SBQnr+GBiZRrYCLleoquDBrBu9 kayPtLVSaKy249bTgL+yaqsJO4ELAZePtcYtin+QSU+HFpfOiToYCo8AHbIWJHJcrx1uDbU2fWUSt4dU r5LPQWNZA7jqDKAjyLGVIYFcGZ4z2Em9Z01IoJHOYM [file] Pgo1FjDPPeEWJELe2+KiT6DTW5dHXzFmn5MjQ6QwfzMDWWRu== ID Date Data Source [id number] 04/12/2020 06:32:35 AM EST [facility] Name Value Range Interpretation Code Description Data Kathi rce(s) Supporting Document(s) SODIUM 138 mmol/L (136-145) [facility] POTASSIUM 4.3 mmol/L (3.6-5.2) [facility] CHLORIDE 106 mmol/L (100-108) [facility] CO2 24 mmol/L (22-31) [facility] ANION GAP 8 mmol/L (7-16) [facility] UREA NITROGEN 29 mg/dL (7-24) H [facility] CREATININE 0.91 mg/dL (0.60-1.00) [facility] BUN/CREAT RATIO 31.9 RATIO (10.0-20.0) H [facility] GLUCOSE 83 mg/dL (70-99) [facility] CALCIUM 9.0 mg/dL (8.4-10.2) [facility] GFR >60 ml/min/1.73m2 (>59) [facility] GFR ( AMER) >60 ml/min/1.73m2 (>59) [facility] GFR INTERPRETATION [facility] --NORMAL KIDNEY FUNCTION OR MILD DISEASE - GFR >OR= 60CHRONIC KIDNEY DISEASE - GFR 15 - 59RENAL FAILURE - GFR <15 Est. GFR calculation based on the MDRDstudy equation, which assumes a steadystate for creatinine. Est. GFR should notbe used for medication dosing. ID Date Data Source [id number] 04/12/2020 06:02:20 AM EST [facility] Name Value Range Interpretation Code Description Data Kathi rce(s) Supporting Document(s) WBC 8.1 10*3/uL (4.1-11.0) [facility] [place] RBC 5.45 10*6/uL (4.00-5.40) H [facility] HGB 18.1 g/dL (12.0-16.0) H [facility] HCT 50.6 % (36.0-47.0) H [facility] PERFORMED AT [address] [place] [address] [address] [address] MCV 92.8 fL (80.0-95.0) [facility] MCH 33.1 pg (27.0-32.0) H [facility] MCHC 35.7 g/dL (32.0-36.0) [facility] RDW 12.8 % (10.5-14.5) [facility] PLT 258 10*3/uL (150-450) [facility] MPV 8.0 fL (7.1-10.7) [facility] ID Date Data Source [id number] 04/11/2020 05:34:01 PM EST [facility] INFORMATIONPatient MRN Name Date of Age Gend*PT [id number] Mercy Arreola 1955 64 years F SDCXPT Location Admission Date/Time Visit ID Attending Provider04/11/20 1403 --- Zhanna Harris MD([id number]) EPI ID CSN Admitting Provider [id number] Zhanna Harris MD([id number]) Attestation signed by Zhanna Harris MD at [...] the plan as noted above.Beto Harris M.D., [facility], [facility] Card[facility] Electrophysiology04/11/2020 4:17 PM --ADMISSION HISTORY [...] history of tobacco useThe patient presented to [facility] 04/10/2019 for palpitations witha heart [...] 15 mg daily, although review of records gaaxqhal84 mg daily which would be the appropriate dose.The patient denies any history of TIA/CVA, CAD, PAD. Reports extensive testingin 2017 by her rate inserter. She currently denies any symptoms other thanfatigue [...] file Gets together: Not on file Attends confucianism service: Not on file Active member of [...] symmetricSkin: No rash or lumps.Neurologic: Grossly normalDiagnosticsLabs, [facility]:Glucose 94Creatinine 0.68Sodium 138Potassium 4.1AST 49ALT [...] amiodarone, she wasloaded with IV amiodarone at [facility]. Continue oral cardizem. Start PO amiodarone.Monitor blood pressure and heart rate. Continue Xarelto, 20mg dose as she hasnormal creatinine.Plan RFA ablation for tomorrow. Further recommendations per Dr. Harris.Follow up with Dr. Galarza in 1-2 weeks after discharge.Signature: MIRELLA Cliftonate: April 11, 2020Time: 2:11 PM Name Value Range Interpretation Code Description Data Kathi rce(s) Supporting Document(s) ID Date Data Source [id number] 04/11/2020 04:54:08 PM EST [facility] Name Value Range Interpretation Code Description Data [facility] rce(s) Supporting Document(s) SODIUM 142 mmol/L (136-145) [facility] POTASSIUM 4.5 mmol/L (3.6-5.2) [facility] CHLORIDE 105 mmol/L (100-108) [facility] CO2 24 mmol/L (22-31) [facility] ANION GAP 13 mmol/L (7-16) [facility] UREA NITROGEN 17 mg/dL (7-24) [facility] CREATININE 0.70 mg/dL (0.60-1.00) [facility] BUN/CREAT RATIO 24.3 RATIO (10.0-20.0) H [facility] GLUCOSE 78 mg/dL (70-99) [facility] CALCIUM 9.4 mg/dL (8.4-10.2) [facility] TOTAL PROTEIN 6.2 g/dL (6.4-8.2) L [facility] ALBUMIN 3.7 g/dL (3.2-4.5) [facility] GLOBULIN 2.5 g/dL (2.7-4.3) L [facility] ALB/GLOB RATIO 1.5 RATIO [facility] ALKALINE PHOSPHATASE 111 U/L (45-117) [facility] BILIRUBIN,TOTAL 0.9 mg/dL (0.0-1.0) [facility] PLEASE NOTE:Total bilirubin results may be falselyelevated in patients taking Eltrombopag. AST (SGOT) 51 U/L (11-39) H [facility] [place] [facility] ALT (SGPT) 82 U/L (12-78) H [facility] [place] [facility] GFR >60 ml/min/1.73m2 (>59) [facility] [place] [facility] GFR ( AMER) >60 ml/min/1.73m2 (>59) [facility] [place] [facility] GFR INTERPRETATION [facility] --NORMAL KIDNEY FUNCTION OR MILD DISEASE - GFR >OR= 60CHRONIC KIDNEY DISEASE - GFR 15 - 59RENAL FAILURE - GFR <15 Est. GFR calculation based on the MDRDstudy equation, which assumes a steadystate for creatinine. Est. GFR should notbe used for medication dosing. ID Date Data Source [id number] 04/11/2020 04:38:13 PM EST [facility] [place] [place] [facility] Name Value Range Interpretation Code Description Data Kathi e(s) Supporting Document(s) APTT 31.3 s (22.0-34.3) [facility] [place] [facility] [address] [facility] [facility] [place] [address] ID Date Data Source [id number] 04/11/2020 04:38:13 PM EST [facility] [place] [facility] Name Value Range Interpretation Code Description Data Kathi rce(s) Supporting Document(s) PT 11.7 s (9.2-11.9) [facility] [place] [facility] [place] [place] [address] [facility] [place] [address] INR 1.12 [facility] [place] [facility] SUGGESTED THERAPEUTIC RANGES USING INR F ORSTABILIZED ANTICOAGULATED PATIENTS:STANDARD DOSE THERAPY INR 2.0-3.0 DVT, PE, PREVENT DVT OR EMBOLISMHIGH DOSE THERAPY INR 2.5-3.5 PREVENT EMBOLISM FROM MECHANICAL HEART VALVE ID Date Data Source [id number] 04/11/2020 04:31:31 PM EST [facility] Name Value Range Interpretation Code Description Data Kathi rce(s) Supporting Document(s) WBC 9.0 10*3/uL (4.1-11.0) [facility] [place] RBC 5.81 10*6/uL (4.00-5.40) H [facility] HGB 19.1 g/dL (12.0-16.0) H [facility] HCT 54.4 % (36.0-47.0) H [facility] PERFORMED AT [address] [place] [address] [place] [id number] MCV 93.7 fL (80.0-95.0) [facility] MCH 32.9 pg (27.0-32.0) H [facility] MCHC 35.1 g/dL (32.0-36.0) [facility] RDW 12.8 % (10.5-14.5) [facility] PLT 274 10*3/uL (150-450) [facility] MPV 8.4 fL (7.1-10.7) [facility] ID Date Data Source [id number] 04/11/2020 02:17:21 PM EST [facility] Name Value Range Interpretation Code Description Data Kathi rce(s) Supporting Document(s) EKG [facility] WUWJIq2uBsQERmTlh4NeHbEkOZVqVL6rbya4U4Y6zDJjF5ZdrNAxu1zwZ1DzK8GvBKBvGQJMAJ0XjKTs jb2 [file] wQTLIgHETeRmpwzied9yrhAmgwGBpH1gD1cQHrjWD9hZkE34wxrilM3HlfkpMz3lGgqTL/lZ85wzS/lap checker tl/RKIhhPOOoa9dMJsVRxxEZoogB8Y39uz+BjxCrOC3N1yG2hYrGCDziJQlcoD3CYTb5AlTp2BM4fJCe lGvGsRSVDGWusKn/nJfWpiGOJZRgxLHoZ//zX//7P/ 6qP8ndDN6g//7nf/1f9f/45z//zz//539Yl/mf35kXg/brJ2Ubra08I8tkoxp8+D+s/HsFlfrpr/2HLW tpy08gPubmK/ylZ1nY1mcH1W5/TX9rxb6HYJSeBqY4zWWPcMzOyF0neV22g3ojr2oBqYR/4/5iK8pE4y ID7ktl72+egf9+4IiN4V/W5Qb6/1o28B1kpHY+fO2r zH6Zeugvfo5w3x8l30+4rSkK/q/9d+7/2h8k/r0wjF/8lz5EQbN/garxAEf23ipmr+AkyeXNpp5Tg1ZA b9x+CDi7eLvuB+NyrT4k/Hj0UIdN+yUJaeJ+wl4Z23k3/TDpq35RcgQMS6az+892gBsOpttrOF4fy7gJ +7zEJqFxUZnz7/fK/GEP29/liFYu5R9L5xfh05TxL0 5vV/RMytgHfH/8cumGD46UqIH2uYxZf3DUej/2ugoc+NpHoQLW/sbdj0v/6dX8gyH2GrWxNrS4gjX9sU 4IAsIJnaa3Zxfq7Gq1E+j+6XQ5wD4fkYox/4Fc6b+Ezplo6Stuzc7Bv4fzfsm8nzGQw9/4Fr//4O21u/ 4m7L9vEGFBZDqfmy9BFhG/vkSYEwcnylw9Pw3kpd4M cFntdRqXzpfwNUmYcK7jlVbpTVvq/Z10YZ+3bvCO/R4vnDUHkRS07RioiwL05jiJdtFs/zWPHxnVJ2Fw CreIMAReESjM/9Vdr4UEDrJ/zVT+cacM0Ck2nixoRK1o9P/0w3tB9FLsEUvGub/5gX9rNqbE9zadM3+O 5SsGb5to25eApg/iEHj0XV9cXrwfJ/OgogKroF1WnG /lOSeP7KoY8TMezc7JCiAE3CbJqKAwxi0HHCAVO4Ne0NS8IS/+Mtz9H0MGV74sOBwEZf8h/fv7fZW++1 3B8fN50sl52RihiIB1teGx4mDQ6t28S8W2wVeNuDQIsDaevnFrPW+btioPzi8EWU1wbtHWn3o3TM9B9+ Dj+LV7puEAi+u/pWip8gE5Yx7CawOiWIzbsBZuqgO0 TbqKkxKGi9wtxF4ZH6nzAEmD2xhfZptR4LpGXW5JlNkXxICs81NsS8j6DJ6BVXEsNaHVQ+4JYoVfj0Js EnX4T2criQXhLzrflu+SJsPwFPzftZLuybtY8tgzt21/93HnePd9q8GJmgckavX08evU26UgJvaItsPs y635d+IVnnUnXkGeO/LWtGAXC9yHPxvApzKtTYzofM jE8eU72b+imML1bMDMiTR/iPQY0dg/36N6ZL1rG2oqPeXQeL1Eqjd0V7Yeen/gn4GRngA3THERkAx+5I Gd1zeVcEdPu2sxrh/ME2udK9u9+82w/52q70NAJX/hnfibG/21XjhFFjR2OiJ/eHfgmRAewjEhPRB+iX [place]/cjeCXi+W7Y5pRMA+CSCNkAXhFDOvUr/s27nU1J 7gjpZvBG/GEE8sD8InuMGzJkU10Du+Zh5wL4AC2Lmib/cwWv/437d2P/pF9173Vi2xpCKsIuOpSxb/Chelly [file] ldD1m1GMNyWYgdBW1iepHbRPBnCabaEv0ysLC8DBVrBeuIPz7Ta0HrkbG4okWvVuIyDHn6VtHiQG3W ID Date Data Source [id number] 04/11/2020 09:13:00 AM EST [facility] ([facility]) Name Value Range Interpretation Code Description Data Kathi rce(s) Supporting Document(s) Magnesium Level 2.2 [facility] ([facility]) ID Date Data Source [id number] 04/11/2020 09:13:00 AM EST [facility] ([facility]) Name Value Range Interpretation Code Description Data Kathi rce(s) Supporting Document(s) Sodium 138 [facility] ([facility]) Calcium [Mass/volume] in Serum or Plasma 9.2 [facility] ([facility]) Chloride [Moles/volume] in Serum or Plasma 106 [facility] ([facility]) Carbon dioxide, total [Moles/volume] in Serum or Plasma 25 [facility] ([facility]) Blood Urea Nitrogen 15 5-21 [facility] (Ca [facility]diology [facility]) Potassium [Moles/volume] in Serum or Plasma 4.1 [facility] ([facility]) Glucose 94 70-100 [facility] ([facility]) Creatinine 0.68 0.6-1.5 [facility] ([facility]) Glomerular filtration rate/1.73 sq M.pre dicted [Volume Rate/Area] in Serum or Plasma by Creatinine-based formula (MDRD) 60.0 [facility] ([facility]) ID Date Data Source [id number] 04/11/2020 09:13:00 AM EST [facility] Name Value Range Interpretation Code Description Data Kathi rce(s) Supporting Document(s) Alkaline phosphatase [Enzymatic activity/volume] in Serum or Plasma 1 04 [facility] ([facility]) Aspartate aminotransferase [Enzymatic activity/volume] in Serum or Plasma 49 [facility] ([facility]) Bilirubin.total [Mass/volume] in Serum or Plasma 0.7 [facility] ([facility]) Alanine aminotransferase [Enzymatic activity/volume] in Serum or Pl asma 76 [facility] ([facility]) Bilirubin.direct [Mass/volume] in Serum or Plasma 0.3 [facility] ([facility]) Protein [Mass/volume] in Serum or Plasma 6.0 [facility] ([facility]) Albumin [Mass/volume] in Serum or Plasma 3.4 [facility] ([facility]) Cholesterol [Mass/volume] in Serum or Plasma Laboratory test result [facility] ([facility]) ID Date Data Source [id number] 04/11/2020 09:13:00 AM EST [facility] ([facility]i [facility]) Name Value Range Interpretation Code Description Data Kathi rce(s) Supporting Document(s) White Blood Count 10.1 4.3-10.9 [facility] ([facility]) Platelets 279 130-400 [facility] ([facility]iology A [facility]) Red Blood Count 5.54 4.70-6.20 [facility] ([facility]io [facility]) Hematocrit 51.3 39.0-50.0 [facility] ([facility]) Hemoglobin 17.7 13.0-17.0 [facility] ([facility]) ID Date Data Source [id number] 04/10/2020 01:21:00 PM EST [facility] Name Value Range Interpretation Code Description Data Kathi rce(s) Supporting Document(s) SARS coronavirus 2 RNA [Presence] in Res piratory specimen by RISHABH with probe detection [facility] This lab was ordered by [facility] a nd reported by [facility]. ID Date Data Source [id number] 04/10/2020 12:55:00 PM EST [facility] ([facility]) Name Value Range Interpretation Code Description Data Kathi rce(s) Supporting Document(s) Red Blood Count 5.60 10 4.00-5.40 Above high normal [place] [facility] ([facility]) White Blood Count 5.9 10 4.0-10.0 Normal (applies to non-numeri c results) [facility] ([facility]) Hematocrit 53.3 % 36.0-47.0 Above high normal [facility] ([facility]) Hemoglobin 17.4 g/dL 12.0-15.5 Above high normal [facility] ([facility]) Mean Corpuscular Volume 95.2 fl 80.0-96.0 Normal ( applies to non-numeric results) [facility] ([facility]) Red Cell Distribution Width 12.2 % 11.5-14.5 Norm al (applies to non-numeric results) [facility] ([facility]) Mean Corpuscular HGB Conc 32.6 g/dL 32.0-36.5 Normal (applies to non-numeric results) [facility] ([facility]) Mean Corpuscular Hemoglobin 31.1 pg 27.0-33.0 Norm al (applies to non-numeric results) [facility] ([facility]) Platelet Count, Automated 263 10 150-450 Normal (applies to non-numeric results) [facility] ([facility]) Nucleated Red Blood Cell % 0.0 % 0-0 Normal (applies to n on-numeric results) [facility] ([facility]) ID Date Data Source [id number] 04/10/2020 12:55:00 PM EST [facility] ([facility]) Name Value Range Interpretation Code Description Data Kathi rce(s) Supporting Document(s) Glucose, Fasting 84 mg/dL 70-100 Normal (applies to non-numeric results) [facility] ([facility]) Blood Urea Nitrogen 17 mg/dL 7-18 Normal (applies to non-nume kelly results) [facility] ([facility]) Creatinine For GFR 0.69 mg/dL 0.55-1.30 Normal (applies to non -numeric results) [facility] ([facility]) Sodium Level 141 meq/L 136-145 Normal (applies to non-numeric res ults) [facility] ([facility]) Potassium Serum 4.0 meq/L 3.5-5.1 Normal (applies to non-numeric results) [facility] ([facility]) Glomerular Filtration Rate Laboratory test result Normal (applies to non- numeric results) [facility] ([facility]) <content>Units are mL/min/1.73 m2</content>
<content></content>
<content>Chronic Kidney Disease Staging per NKF:</content>
<content></content>
<content>Stage I & II GFR >=60 Normal to Mildly Decreased</content>
<content>Stage III GFR 30- 59 Moderately Decreased</content>
<content>Stage IV GFR 15-29 Severely Decreased</content>
<content>Stage V GFR <15 Very Little GFR Left</content>
<content>ESRD GFR <15 on RFID MANAGER</content>
<content></content> Chloride Level 107 meq/L 98-107 Normal (applies to non-numeric r esults) [facility] ([facility]) Anion Gap 7 meq/L 8-16 [facility] Carbon Dioxide Level 27 meq/L 21-32 Normal (applies to non-num pop results) [facility] ([facility]) Calcium Level 8.6 mg/dL 8.8-10.2 Below low normal [facility] ([facility]) Ast/Sgot 40 U/L 7-37 Above high normal [facility] Alt/SGPT 69 U/L 12-78 Normal (applies to non-numeric resul ts) [facility]) Total Protein 5.7 GM/DL 6.4-8.2 Below low normal [facility] Alkaline Phosphatase 95 U/L 45-117 Normal (applies to non-num pop results) [facility] ([facility]) Bilirubin,Total 0.5 mg/dL 0.2-1.0 Normal (applies to non-numeric results) [facility] ([facility]) Albumin 3.4 GM/DL 3.2-5.2 Normal (applies to non-numeric resul ts) [facility] ([facility]) Albumin/Globulin Ratio 1.5 1.2-2.2 Normal (applies to non-n umeric results) [facility] ([facility]) ID Date Data Source [id number] 04/10/2020 12:55:00 PM EST [facility] ([facility]) Name Value Range Interpretation Code Description Data Kathi rce(s) Supporting Document(s) CPK Creatine Phosphokinase 47 U/L 26-192 Queenie l (applies to non-numeric results) [facility] ([facility]) CK-MB Value Mass 1.2 ng/mL Normal (applies to non-numeric results) [facility] ([facility]) Troponin I Laboratory test result Normal (applies to non-n umeric results) [facility] ([facility]) <content>Troponin I Reference Interval f or Siemens [place] LOCI:</content>
<content></content>
<content>99th Percentile= 0.00-0.045 ng/ml</content>
<content></content>
<content>Risk Stratification:</content>
<content><= 0.10 ng/ml Decreased Risk for Adverse Clinical</content>
<content>Events.</content>
<content>0.10-1.50 ng/ml Increased Risk for Adverse Clinical</content>
<content>Events. Evaluation of additional</content>
<content>criterion and/or repeat testing in 2-6</content>
<content>hours is suggested to rule out myocardial</content>
<content>damage.</content>
<content>>= 1.50 ng/ml Indicative of Myocardial Injury.</content>
<content></content> MB/CK Relative Index 2.55 Normal (applies to non-num pop results) [facility] ([facility]) <content>DIAGNOSIS CRITERIA</content>
<content>MMB ng/ml Relative Index (RI)</content>
<content>NON-AMI < or = 5 N/A</content>
<content>NGUYEN ZONE > 5 < or = 4</content>
<content>AMI > 5 > 4</content>
<content></content> ID Date Data Source [id number] 04/10/2020 08:45:00 AM EST [facility] ([facility]) Name Value Range Interpretation Code Description Data Kathi rce(s) Supporting Document(s) Laboratory test finding (navigational concept) 15.8 s 1 2.1-14.4 Above high normal [facility] ([facility]) Laboratory test finding (navigational concept) 1.3 Normal (applies to non- numeric results) [facility] ([facility]) ID Date Data Source [id number] 04/10/2020 08:34:00 AM EST [facility] ([facility]) Name Value Range Interpretation Code Description Data Kathi rce(s) Supporting Document(s) Laboratory test finding (navigational concept) 0.00 ng/mL 0 .00-0.08 Normal (applies to non-numeric results) [facility] ([facility]) ID Date Data Source [id number] 04/10/2020 08:33:00 AM EST [facility] ([facility]) Name Value Range Interpretation Code Description Data Kathi rce(s) Supporting Document(s) Laboratory test finding (navigational concept) 50.0 % 3 8.0-51.0 Normal (applies to non-numeric results) [facility] ([facility]) Laboratory test finding (navigational concept) 140 meq/L 1 36-145 Normal (applies to non-numeric results) [facility] ([facility]) Laboratory test finding (navigational concept) 132 mg/dL 7 0-105 Above high normal [facility] ([facility]) Laboratory test finding (navigational concept) 4.7 mg/dL 4 .5-5.3 Normal (applies to non-numeric results) [facility] ([facility]) Laboratory test finding (navigational concept) 101 meq/L 9 8-109 Normal (applies to non-numeric results) [facility] ([facility]) Laboratory test finding (navigational concept) 4.1 meq/L 3 .5-5.1 Normal (applies to non-numeric results) [facility] ([facility]) Laboratory test finding (navigational concept) 29.0 MM/L 2 3.0-27.0 Above high normal [facility] Laboratory test finding (navigational concept) 20 mg/dL 8 -26 Normal (applies to non-numeric results) [facility] ([facility]) Laboratory test finding (navigational concept) 0.8 mg/dL 0 .6-1.3 Normal (applies to non-numeric results) [facility] ([facility]) ID Date Data Source [id number] 04/10/2020 08:30:00 AM EST [facility] ([facility]) Name Value Range Interpretation Code Description Data Kathi rce(s) Supporting Document(s) Red Blood Count 5.60 10 4.00-5.40 Above high normal [place] [facility] [place]) White Blood Count 5.9 10 4.0-10.0 Normal (applies to non-numeri c results) [facility] ([facility]) Hematocrit 53.3 % 36.0-47.0 Above high normal [facility] ([facility]) Mean Corpuscular Volume 95.2 fl 80.0-96.0 Normal ( applies to non-numeric results) [facility] ([facility]) Hemoglobin 17.4 g/dL 12.0-15.5 Above high normal [facility] ([facility]) Red Cell Distribution Width 12.2 % 11.5-14.5 Norm al (applies to non-numeric results) [facility] ([facility]) Mean Corpuscular Hemoglobin 31.1 pg 27.0-33.0 Norm al (applies to non-numeric results) [facility] ([facility]) Mean Corpuscular HGB Conc 32.6 g/dL 32.0-36.5 Normal (applies to non-numeric results) [facility] ([facility]) Nucleated Red Blood Cell % 0.0 % 0-0 Normal (applies to n on-numeric results) [facility] ([facility]) Platelet Count, Automated 263 10 150-450 Normal (applies to non-numeric results) [facility] ([facility]) ID Date Data Source [id number] 04/10/2020 08:30:00 AM EST [facility] ([facility]) Name Value Range Interpretation Code Description Data Kathi rce(s) Supporting Document(s) Thyrotropin [Units/volume] in Serum or Plasma 2.030 uIU/ML 0. 358-3.740 Normal (applies to non-numeric results) [facility] ([facility]) ID Date Data Source [id number] 04/07/2020 11:45:00 AM EST [facility] ([facility]) Name Value Range Interpretation Code Description Data Kathi rce(s) Supporting Document(s) EKG Laboratory test result [facility] ([facility]) ID Date Data Source [id number] 04/03/2020 10:53:00 AM EST [facility] ([facility]) Name Value Range Interpretation Code Description Data Kathi rce(s) Supporting Document(s) Magnesium Level 2 [facility] ([facility]) ID Date Data Source [id number] 04/03/2020 10:53:00 AM EST [facility] Name Value Range Interpretation Code Description Data Kathi rce(s) Supporting Document(s) Alanine aminotransferase [Enzymatic activity/volume] in Serum or Pl asma 61 [facility] ([facility]) Calcium [Mass/volume] in Serum or Plasma 8.6 [facility] ([facility]) Albumin [Mass/volume] in Serum or Plasma 3.3 [facility] ([facility]) Carbon dioxide, total [Moles/volume] in Serum or Plasma 27 [facility] ([facility]) Alkaline phosphatase [Enzymatic activity/volume] in Serum or Plasma 9 7 [facility] ([facility]) Potassium [Moles/volume] in Serum or Plasma 4.4 [facility] ([facility]) Chloride [Moles/volume] in Serum or Plasma 104 [facility] ([facility]) Protein [Mass/volume] in Serum or Plasma 5.8 [facility] ([facility]) Sodium 139 [facility] ([facility]) Urea nitrogen [Mass/volume] in Serum or Plasma 26 [facility] ([facility]) Aspartate aminotransferase [Enzymatic activity/volume] in Serum or Plasma 30 [facility] ([facility]) Glucose 86 70-100 [facility] ([facility]iology A [facility]) Creatinine For GFR 0.81 [facility] ([facility]) ID Date Data Source [id number] 04/03/2020 10:53:00 AM EST [facility] ([facility]) Name Value Range Interpretation Code Description Data Kathi rce(s) Supporting Document(s) White Blood Count 7.7 4.3-10.9 [facility] ([facility]) Red Blood Count 5.34 4.70-6.20 [facility] ([facility]) Platelets 268 130-400 [facility] ([facility]iology A [facility]) Hemoglobin 17.1 13.0-17.0 [facility] ([facility]) Hematocrit 50.9 39.0-50.0 [facility] ([facility]) ID Date Data Source [id number] 04/02/2020 04:00:00 AM EST [facility] Name Value Range Interpretation Code Description Data Kathi rce(s) Supporting Document(s) SARS coronavirus 2 RNA [Presence] in Res piratory specimen by RISHABH with probe detection [facility] This lab was ordered by [facility] a nd reported by [facility]. ID Date Data Source [id number] 03/30/2020 06:13:00 PM EST [facility] ([facility]) Name Value Range Interpretation Code Description Data Kathi rce(s) Supporting Document(s) Thyrotropin [Units/volume] in Serum or Plasma 2.050 uIU/ML 0. 358-3.740 Normal (applies to non-numeric results) [facility] ([facility]) Thyroxine (T4) free [Mass/volume] in Serum or Plasma 1.30 ng/dL 0.76-1.46 Normal (applies to non-numeric results) [facility] ([facility]) Digoxin [Mass/volume] in Serum or Plasma 0.1 ng/mL 0.5-2.0 Below low normal [facility] ([facility]) ID Date Data Source [id number] 03/30/2020 06:13:00 PM EST [facility] ([facility]) Name Value Range Interpretation Code Description Data Kath[facility]) Supporting Document(s) Glucose, Fasting 80 mg/dL 70-100 Normal (applies to non-numeric results) [facility] ([facility]) Blood Urea Nitrogen 22 mg/dL 7-18 Above high normal [facility] ([facility]) Creatinine For GFR 0.84 mg/dL 0.55-1.30 Normal (applies to non -numeric results) [facility] ([facility]) Glomerular Filtration Rate Laboratory test result Normal (applies to non- numeric results) [facility] ([facility]) <content>Units are mL/min/1.73 m2</content>
<content></content>
<content>Chronic Kidney Disease Staging per NKF:</content>
<content></content>
<content>Stage I & II GFR >=60 Normal to Mildly Decreased</content>
<content>Stage III GFR 30- 59 Moderately Decreased</content>
<content>Stage IV GFR 15-29 Severely Decreased</content>
<content>Stage V GFR <15 Very Little GFR Left</content>
<content>ESRD GFR <15 on RFID MANAGER</content>
<content></content> Sodium Level 141 meq/L 136-145 Normal (applies to non-numeric res ults) [facility] ([facility]) Chloride Level 108 meq/L 98-107 Above high normal [facility] ([facility]) Potassium Serum 4.1 meq/L 3.5-5.1 Normal (applies to non-numeric results) [facility] ([facility]) Anion Gap 4 meq/L 8-16 Below low normal [facility] ( [facility]) Carbon Dioxide Level 29 meq/L 21-32 Normal (applies to non-num pop results) [facility] ([facility]) Calcium Level 8.7 mg/dL 8.8-10.2 Below low normal [facility] ([facility]) ID Date Data Source [id number] 03/30/2020 06:13:00 PM EST [facility] ([facility]) Name Value Range Interpretation Code Description Data Kathi rce(s) Supporting Document(s) Ast/Sgot 63 U/L 7-37 Above high normal [facility] ([facility]) Bilirubin,Total 0.6 mg/dL 0.2-1.0 Normal (applies to non-numeric results) [facility] ([facility]) Alt/SGPT 100 U/L 12-78 Above high normal [facility] ([facility]) Alkaline Phosphatase 103 U/L 45-117 Normal (applies to non-num pop results) [facility] ([facility]) Bilirubin,Direct 0.2 mg/dL 0.0-0.2 Normal (applies to non-numeric results) [facility] ([facility]) Total Protein 6.1 GM/DL 6.4-8.2 Below low normal [facility] ([facility]) Albumin/Globulin Ratio 1.4 1.2-2.2 Normal (applies to non-n umeric results) [facility] ([facility]) Albumin 3.6 GM/DL 3.2-5.2 Normal (applies to non-numeric resul ts) [facility] ([facility]) ID Date Data Source [id number] 03/30/2020 06:13:00 PM EST [facility] ([facility]) Name Value Range Interpretation Code Description Data Kathi rce(s) Supporting Document(s) CK-MB Value Mass 3.0 ng/mL Normal (applies to non-numeric results) [facility] [facility]) MB/CK Relative Index 3.66 Normal (applies to non-num pop results) [facility] ([facility]) <content>DIAGNOSIS CRITERIA</content>
<content>MMB ng/ml Relative Index (RI)</content>
<content>NON-AMI < or = 5 N/A</content>
<content>NGUYEN ZONE > 5 < or = 4</content>
<content>AMI > 5 > 4</content>
<content></content> CPK Creatine Phosphokinase 82 U/L 26-192 Queenie l (applies to non-numeric results) [facility] ([facility]) Troponin I Laboratory test result Normal (applies to non-n umeric results) [facility] ([facility]) <content>Troponin I Reference Interval f or Siemens [place] LOCI:</content>
<content></content>
<content>99th Percentile= 0.00-0.045 ng/ml</content>
<content></content>
<content>Risk Stratification:</content>
<content><= 0.10 ng/ml Decreased Risk for Adverse Clinical</content>
<content>Events.</content>
<content>0.10-1.50 ng/ml Increased Risk for Adverse Clinical</content>
<content>Events. Evaluation of additional</content>
<content>criterion and/or repeat testing in 2-6</content>
<content>hours is suggested to rule out myocardial</content>
<content>damage.</content>
<content>>= 1.50 ng/ml Indicative of Myocardial Injury.</content>
<content></content> ID Date Data Source [id number] 03/30/2020 06:13:00 PM EST [facility] ([facility]) Name Value Range Interpretation Code Description Data Kathi rce(s) Supporting Document(s) aPTT in Platelet poor plasma by Coagulation assay 30.0 s 24.2-38.5 Normal (applies to non-numeric results) [facility] ID Date Data Source [id number] 03/30/2020 06:13:00 PM EST [facility] ([facility]) Name Value Range Interpretation Code Description Data Kathi rce(s) Supporting Document(s) Inr 1.09 Normal (applies to non-numeric resul ts) [facility] ([facility]) THERAPUTIC HUMAN INR VALUES INDICATIONS NORMAL RANGES PROPHYLAXIS/TREATMENT OF: VENOUS THROMBOSIS 2.0-3.0 PULMONARY EMBOLISM 2.0-3.0 PREVENTION OF SYSTEMIC EMBOLISM FROM: TISSUE HEART VALVES 2.0-3.0 ACUTE MYOCARDIAL INFARCTION 2.0-3.0 VALVULAR HEART DISEASE 2.0-3.0 ATRIAL FIBRILLATION 2.0-3.0 MECHANICAL VALVES(HIGH RISK) 2.5-3.5 RECURRENT MYOCARDIAL INFARCTION 2.5-3.5 Prothrombin Time 14.3 s 12.5-14.3 Above high normal [facility]) ID Date Data Source [id number] 03/30/2020 06:13:00 PM EST [facility] ([facility]) Name Value Range Interpretation Code Description Data Kathi rce(s) Supporting Document(s) Red Blood Count 5.01 10 4.00-5.40 Normal (applies to non-numeric results) [facility] ([facility]) White Blood Count 10.1 10 4.0-10.0 Above high normal [facility] ([facility]) Hemoglobin 16.3 g/dL 12.0-15.5 Above high normal [facility] ([facility]) Hematocrit 48.1 % 36.0-47.0 Above high normal [facility] ([facility]) Mean Corpuscular Volume 96.0 fl 80.0-96.0 Normal ( applies to non-numeric results) [facility] ([facility]) Mean Corpuscular Hemoglobin 32.5 pg 27.0-33.0 Norm al (applies to non-numeric results) [facility] ([facility]) Mean Corpuscular HGB Conc 33.9 g/dL 32.0-36.5 Normal (applies to non-numeric results) [facility] ([facility]) Neutrophils % 74.0 % 36.0-66.0 Above high normal [facility] ([facility]) Red Cell Distribution Width 12.6 % 11.5-14.5 Norm al (applies to non-numeric results) [facility] ([facility]) Platelet Count, Automated 259 10 150-450 Normal (applies to non-numeric results) [facility] ([facility]) Lymph % 16.2 % 24.0-44.0 Below low normal [facility] ( [facility]) Wise % 9.0 % 0.0-5.0 Above high normal [facility] ([facility]) Immature Granulocyte % 0.3 % 0-3.0 Normal (applies to non-n umeric results) [facility] ([facility]) Eos % 0.1 % 0.0-3.0 Normal (applies to non-numeric resul ts) [facility] ([facility]) Baso % 0.4 % 0.0-1.0 Normal (applies to non-numeric resul ts) [facility] ([facility]) Neutrophils # 7.5 10 1.5-8.5 Normal (applies to non-numeric re sults) [facility] ([facility]) Nucleated Red Blood Cell % 0.0 % 0-0 Normal (applies to n on-numeric results) [facility] ([facility]) Wise # 0.9 10 0.0-0.8 Above high normal [facility] ([facility]) Eos # 0.0 10 0.0-0.5 Normal (applies to non-numeric resul ts) [facility] ([facility]) Lymph # 1.6 10 1.5-5.0 Normal (applies to non-numeric resul ts) [facility] ([facility]) Baso # 0.0 10 0.0-0.2 Normal (applies to non-numeric resul ts) [facility] ([facility]) ID Date Data Source [id number] 03/30/2020 06:11:00 PM EST [facility] ([facility]) Name Value Range Interpretation Code Description Data Kathi rce(s) Supporting Document(s) Ethanol [Mass/volume] in Serum or Plasma 0.003 % 0.000-0 .010 Normal (applies to non-numeric results) [facility] ([facility]) Magnesium [Mass/volume] in Serum or Plasma 2.3 mg/dL 1.8-2 .4 Normal (applies to non-numeric results) [facility] ([facility]) ID Date Data Source [id number] 10/18/2019 11:04:00 AM EDT [facility] Name Value Range Interpretation Code Description Data Kathi rce(s) Supporting Document(s) Alanine aminotransferase [Enzymatic activity/volume] in Serum or Pl asma 66 [facility] ([facility]) Albumin [Mass/volume] in Serum or Plasma 3.7 [facility] ([facility]) Carbon dioxide, total [Moles/volume] in Serum or Plasma 27 [facility] ([facility]) Chloride [Moles/volume] in Serum or Plasma 109 [facility] ([facility]) Calcium [Mass/volume] in Serum or Plasma 8.9 [facility] ([facility]) Alkaline phosphatase [Enzymatic activity/volume] in Serum or Plasma 8 1 [facility] ([facility]) Aspartate aminotransferase [Enzymatic activity/volume] in Serum or Plasma 33 [facility] ([facility]) Sodium 143 [facility]) Protein [Mass/volume] in Serum or Plasma 6.4 [facility] ([facility]) Potassium [Moles/volume] in Serum or Plasma 4.4 [facility] ([facility]) Creatinine For GFR 0.76 [facility] ([facility]) Urea nitrogen [Mass/volume] in Serum or Plasma 14 [facility] ([facility]) Glucose 90 70-100 [facility]) ID Date Data Source [id number] 10/18/2019 11:04:00 AM EDT [facility] Name Value Range Interpretation Code Description Data Kathi rce(s) Supporting Document(s) White Blood Count 5.5 4.0-10.0 [facility]) Hematocrit 44.0 [facility] ([facility]) Hemoglobin 14.6 [facility] Platelets 245 150-450 [facility] Red Blood Count 4.72 4.00-5.40 [facility] ID Date Data Source [id number] 08/30/2019 10:18:00 AM EDT [facility] Name Value Range Interpretation Code Description Data Kathi rce(s) Supporting Document(s) Tibc % Saturation 52.4 [facility] Iron binding capacity [Mass/volume] in Serum or Plasma 292 [facility]) Iron 153 50-170 [facility] ID Date Data Source [id number] 07/29/2019 10:16:00 AM EDT [facility] Name Value Range Interpretation Code Description Data Kathi rce(s) Supporting Document(s) Tibc % Saturation 40.3 [facility] Iron 129 50-170 [facility] [place] Iron binding capacity [Mass/volume] in Serum or Plasma 320 [facility] ([facility]) ID Date Data Source [id number] 07/29/2019 10:16:00 AM EDT [facility] ([facility]) Name Value Range Interpretation Code Description Data Kathi rce(s) Supporting Document(s) White Blood Count 8.8 4.0-10.0 [facility] [place] Platelets 260 150-450 [facility] [place] Red Blood Count 4.81 4.0-5.40 [facility] [place] Hematocrit 44.8 [facility] ([facility]) Hemoglobin 15.6 [facility] ([facility]) ID Date Data Source [id number] 07/02/2019 10:08:00 AM EDT [facility] Name Value Range Interpretation Code Description Data Kathi rce(s) Supporting Document(s) Red Blood Count 4.92 4.00-5.40 [facility] White Blood Count 6.4 4.0-10.0 [facility]) Hematocrit 46.3 [facility] ([facility]) Platelets 297 150-450 [facility]) Hemoglobin 15.5 [facility] ([facility]) ID Date Data Source [id number] 07/02/2019 10:08:00 AM EDT [facility] ([facility]) Name Value Range Interpretation Code Description Data Kathi rce(s) Supporting Document(s) Albumin [Mass/volume] in Serum or Plasma 3.8 [facility] ([facility]) Calcium [Mass/volume] in Serum or Plasma 9.3 [facility] ([facility]) Chloride [Moles/volume] in Serum or Plasma 107 [facility] ([facility]) Carbon dioxide, total [Moles/volume] in Serum or Plasma 32 [facility] ([facility]) Alanine aminotransferase [Enzymatic activity/volume] in Serum or Pl asma 90 [facility] ([facility]) Potassium [Moles/volume] in Serum or Plasma 4.2 [facility] ([facility]) Protein [Mass/volume] in Serum or Plasma 6.8 [facility] ([facility]) Alkaline phosphatase [Enzymatic activity/volume] in Serum or Plasma 9 0 [facility] ([facility]) Urea nitrogen [Mass/volume] in Serum or Plasma 19 [facility] ([facility]) Sodium 142 [facility] ([facility] Glucose 79 70-100 [facility] ([facility]) Aspartate aminotransferase [Enzymatic activity/volume] in Serum or Plasma 41 [facility] ([facility]) Creatinine For GFR 0.86 [facility] ([facility]) Procedure Social History Code Duration Value Status Description Data Source(s ) Smoking 04/19/2020 12:00:00 AM EST Patient is a former smoker completed Patient is a former smoker [facility] ([facility]) Alcohol intake 04/13/2020 12:00:00 AM EST Not Currently completed [facility] Smoking 04/13/2020 12:00:00 AM EST Former smoker completed Former smoker [facility] Vital Signs ID Date Data Source UNK Name Value Range Interpretation Code Description Data Source(s) [place] body weight 115 [lb_av] 115 [lb_av] [facility] ([facility]) Oxygen saturation in Arterial blood by Pulse oximetry 98 % 98 % [facility] ([facility]) Body temperature 97.8 [degF] 97.8 [degF] [facility] ([facility]) Respiratory rate 18 /min 18 /min [facility] Heart rate 57 /min 57 /min [facility] ([facility]) Body mass index (BMI) [Ratio] 23.1 kg/m2 23.1 k g/m2 [facility] Body weight 130.38 [lb_av] 130.38 [lb_av] [facility] ([facility]) Body height 63 [in_i] 63 [in_i] [facility] 5'3" Diastolic blood pressure 84 mm[Hg] 84 mm[Hg] [facility] ([facility]) Systolic blood pressure 148 mm[Hg] 148 mm[Hg] [facility] ([facility]) Diastolic blood pressure--sitting 86 mm[Hg] 86 mm[Hg] [facility] ([facility]) CBP, adult cuff/LA Systolic blood pressure--sitting 164 mm[Hg] 164 mm[Hg] [facility] ([facility]) CBP, adult cuff/LA Heart rate 51 /min 51 /min [facility] ([facility]) Body mass index (BMI) [Ratio] 23.0 kg/m2 23.0 k g/m2 [facility]) Body height 63 [in_i] 63 [in_i] [facility]) 5'3" Body weight 130.00 [lb_av] 130.00 [lb_av] [facility] ([facility]) Oxygen saturation in Arterial blood by Pulse oximetry 97 % 97 % [facility] Respiratory rate 16 /min 16 /min [facility] Body temperature 36.67 Haley 36.67 Haley [facility] Heart rate 62 /min 62 /min [facility] Diastolic blood pressure 88 mm[Hg] 88 mm[Hg] [facility] Systolic blood pressure 150 mm[Hg] 150 mm[Hg] S [facility] Body mass index (BMI) [Ratio] 23.03 kg/m2 23.03 kg/m2 [facility] Body weight 58.968 kg 58.968 kg [facility] Body height 160 cm 160 cm [facility] [place] body weight 115 [lb_av] 115 [lb_av] [facility] ([facility]) Oxygen saturation in Arterial blood by Pulse oximetry 98 % 98 % [facility] ([facility]) Body temperature 98.1 [degF] 98.1 [degF] [facility]) Respiratory rate 18 /min 18 /min [facility] ( [facility]) Heart rate 63 /min 63 /min [facility] ([facility]) Body mass index (BMI) [Ratio] 23.4 kg/m2 23.4 k g/m2 [facility] ([facility]) Body weight 132.25 [lb_av] 132.25 [lb_av] [facility] ([facility]) Body height 63 [in_i] 63 [in_i] [facility] ([facility]) 5'3" Diastolic blood pressure 74 mm[Hg] 74 mm[Hg] [facility] ([facility]) Systolic blood pressure 124 mm[Hg] 124 mm[Hg] [facility] ([facility]) Diastolic blood pressure--sitting 78 mm[Hg] 78 mm[Hg] [facility] ([facility]) Systolic blood pressure--sitting 130 mm[Hg] 130 mm[Hg] [facility] ([facility]) Heart rate 67 /min 67 /min [facility] ([facility] Body mass index (BMI) [Ratio] 24.3 kg/m2 24.3 k g/m2 [facility] ([facility]) Body height 63 [in_i] 63 [in_i] [facility]) 5'3" Body weight 137.00 [lb_av] 137.00 [lb_av] [facility] ([facility]) [place] body weight 115 [lb_av] 115 [lb_av] [facility] ([facility]) Oxygen saturation in Arterial blood by Pulse oximetry 98 % 98 % [facility] ([facility]) Body temperature 98.8 [degF] 98.8 [degF] [facility] ([facility]) Respiratory rate 18 /min 18 /min [facility] ( [facility]) Heart rate 77 /min 77 /min [facility] ([facility]) Body mass index (BMI) [Ratio] 24.7 kg/m2 24.7 k g/m2 [facility] ([facility]) Body weight 139.50 [lb_av] 139.50 [lb_av] [facility] ([facility]) Body height 63 [in_i] 63 [in_i] [facility] ([facility]) 5'3" Diastolic blood pressure 74 mm[Hg] 74 mm[Hg] [facility] ([facility]) Systolic blood pressure 128 mm[Hg] 128 mm[Hg] [facility] ([facility]) [place] body weight 115 [lb_av] 115 [lb_av] [facility] ([facility]) Oxygen saturation in Arterial blood by Pulse oximetry 99 % 99 % [facility] Body temperature 98.1 [degF] 98.1 [degF] [facility] Respiratory rate 18 /min 18 /min [facility] ( [facility]) Heart rate 70 /min 70 /min [facility] ([facility]) Body mass index (BMI) [Ratio] 24.4 kg/m2 24.4 k g/m2 [facility] ([facility]) Body weight 137.50 [lb_av] 137.50 [lb_av] [facility] ([facility]) Body height 63 [in_i] 63 [in_i] [facility] ([facility]) 5'3" Diastolic blood pressure 78 mm[Hg] 78 mm[Hg] [facility] ([facility]) Systolic blood pressure 132 mm[Hg] 132 mm[Hg] [facility] ([facility]) Oxygen saturation in Arterial blood by Pulse oximetry 100 % 100 % [facility] Body temperature 97.9 [degF] 97.9 [degF] [facility] ([facility]) Respiratory rate 18 /min 18 /min [facility] ( [facility]) Heart rate 53 /min 53 /min [facility] ([facility]) Body mass index (BMI) [Ratio] 24.2 kg/m2 24.2 k g/m2 [facility] ([facility]) Body weight 136.38 [lb_av] 136.38 [lb_av] [facility] ([facility]) Body height 63 [in_i] 63 [in_i] [facility] ([facility]) 5'3" Diastolic blood pressure 80 mm[Hg] 80 mm[Hg] [facility] ([facility]) Systolic blood pressure 136 mm[Hg] 136 mm[Hg] [facility] ([facility]) Diastolic blood pressure--sitting 68 mm[Hg] 68 mm[Hg] [facility] ([facility]) adult cuff, Ra Systolic blood pressure--sitting 120 mm[Hg] 120 mm[Hg] [facility] ([facility]) adult cuff, Ra Heart rate 71 /min 71 /min [facility] ([facility]) Body mass index (BMI) [Ratio] 23.7 kg/m2 23.7 k g/m2 [facility] ([facility]) Body height 63 [in_i] 63 [in_i] [facility]) 5'3" Body weight 134.00 [lb_av] 134.00 [lb_av] [facility] ([facility]) Oxygen saturation in Arterial blood by Pulse oximetry 99 % 99 % [facility] ([facility]) Body temperature 98.1 [degF] 98.1 [degF] [facility] ([facility]) Respiratory rate 18 /min 18 /min [facility] ( [facility]) Heart rate 49 /min 49 /min [facility] ([facility]) Body mass index (BMI) [Ratio] 23.8 kg/m2 23.8 k g/m2 [facility] ([facility]) Body weight 134.25 [lb_av] 134.25 [lb_av] [facility] ([facility]) Body height 63 [in_i] 63 [in_i] [facility] ([facility]) 5'3" Diastolic blood pressure 64 mm[Hg] 64 mm[Hg] [facility] ([facility]) Systolic blood pressure 132 mm[Hg] 132 mm[Hg] [facility] ([facility]) Patient Treatment Plan of Care Planned Activity Planned Date Details Description Data Source (s) Amlodipine 5 MG Oral Tablet 04/14/2020 12:00:00 AM [facility] rivaroxaban 20 MG Oral Tablet 04/13/2020 12:00:00 AM [facility] rivaroxaban 15 MG Oral Tablet [facility] Diltiazem Hydrochloride 30 MG Oral Tablet [facility] Atenolol [address] [facility]
--- NOTE | 2020-05-30 07:32 | ECGEPIP ---
[facility] - ED Test Date: 2020-05-30 Pat Name: MERCY RIVERA Department: Room: - Gender: Female Planning Consultant: : 1955 Requested By: SHIRA Hilton Order Number: [id number] Reading MD: Dima Longoria Measurements Intervals [place] Rate: 95 P: RI: QRS: 46 QRSD: 84 T: 34 QT: 384 QTc: 482 Interpretive Statements SINUS RHYTHM WITH FREQUENT PURAVENTRICULAR PREMATURE COMPLEXES IN A BIGEMINAL PATTERN POOR R WAVE PROGRESSION NSTTW ABNORMALITY(S) ECTOPY NEW COMPARED TO 05/26/20 Electronically Signed on 05-30-2020 7:32:03 EST by Dima Longoria
[2020-05-30] MEDS ORDERED: FLECAINIDE 50MG TABLET PO ONE (08:15)
[2020-05-30 09:56] VITALS: BP 168/96
[2020-05-30] MEDS ORDERED: FLEC25TA PO (19:58)
[2020-05-31] MEDS ORDERED: ATIV1TAB10 PO (00:03)
[2020-05-31] MEDS ORDERED: BISO5TAB14 PO ×2 (00:03→08:36)
[2020-05-31] MEDS ORDERED: XARE20TA PO (00:03)
[2020-05-31] MEDS ORDERED: MAGN400T3 PO (00:03)
[2020-05-31] MEDS ORDERED: VITA400C53 PO (00:03)
[2020-05-31] MEDS ORDERED: VALS1TAB66 PO (00:03)
[2020-05-31] MEDS ORDERED: D31000TA2 PO (00:03)
[2020-05-31] MEDS ORDERED: C 50TAB PO (00:03)
== END 2020-05-30 10:04 | disposition home or self-care (01) ==
LOC: M ED 03:44
DX: I47.1 Supraventricular tachycardia (principal); I49.1 Atrial premature depolarization; R00.8 Other abnormalities of heart beat; I48.91 Unspecified atrial fibrillation; K58.9 Irritable bowel syndrome, unspecified; Z88.2 Allergy status to sulfonamides

== ENCOUNTER 2020-05-30 19:11 | Observation (INO) | payer MEDICARE, OTHER ==
[~2020-05-30] VITALS: Ht 160 cm; Wt 57.7 kg
--- OUTSIDE RECORDS SUMMARY | 2020-05-30 19:23 | CCD ---
Author Author [facility] Organization [facility] Address Unknown Phone Unavailable Care Team Providers Care Sergeant Of Officers Name Role Phone ANTECOL, Sabine YOUNG MD [...] Unavailable MARK-DON, DAVE DO Unavailable Unavailable MARK-DON, DVAE DO Unavailable Unavailable MARK-DON, DAVE DO Unavailable [...] MigeedBeto MD Unavailable Unavaila ble Migeed, Beto Hoppre MD Unavailable Unavaila ble Migeed, Beto Hopper [...] is protected by Article 27-F of the [place] Public Health law. If you continue you may have access to information: Regarding HIV / AIDS; Provided by facilities licensed or operated by the [facility] Office of Mental Health; or Provided by the [facility] Office for People With Developmental Disabilities. If such information is present, then the following [facility] mandated warning applies: This information has been [...] law may result in a fine or long term sentence or both. A general authorization for the release of medical or other information is NOT sufficient authorization for further disc losure. Allergies and Adverse Reactions Type Description Substance Reaction Status Data Source(s ) Propensity to adverse reactions SULFA ANTIBIOTICS Sulfa Antibiotics Rash Low Active [facility] Low Propensity to adverse reactions LACTOSE INTOLERANCE (GI) [place] Intolerance (Gi) Active [facility] Propensity to adverse reactions GLUTEN MEAL Wheat gluten extract Active [facility] Propensity to adverse reactions GARLIC allyl sulfide A ctive [facility] Family History Family Member Name Family Member Gender Family Member Status Date o f Status Description Data Source(s) Unknown Male Problem [facility] ([facility]) Unknown Male Problem [facility] ([facility]) at age 38 Encounters Encounter Providers Location Date Indications Data Source(s ) Outpatient Attender: DAVE AMBROSE DO [facility] 04/21/2020 10:00:00 AM EST [facility] ([facility]) Outpatient Attender: HANNAH GALARZA MD Main Office 04/19/2020 11:00:00 AM EST [facility] ([facility]) Inpatient Attender: Ruchi Harris MDAdmitter: Ruchi douglas MD [email or web address] 04/11/2020 02:03:45 PM EST - 04/13/2020 01:50:00 PM EST [facility] Patient discharged. Outpatient Attender: Nico PATIÑO [facility] 04/07/2020 09:40:00 AM EST [facility] ([facility]) Outpatient Attender: Robina PATIÑO Main Office 12/03/2019 02:30:0 0 PM EDT MED[facility] ([facility]) Outpatient Attender: DAVE AMBROSE [facility] 06/24/2019 10:30:00 AM EDT MED[facility] ([facility]) Outpatient Attender: DAVE AMBROSE [facility] 06/05/2019 10:00:00 AM EST [facility] ([facility]) Outpatient Attender: DAVE AMBROSE [facility] 05/08/2019 12:20:00 PM EST MED[facility] ([facility]) Outpatient Attender: Robina PATIÑO Main Office 04/29/2019 12:00:0 0 PM EST [facility] ([facility]) [facility]07/2019 12:30:00 PM EST [facility] ([facility]) Medications Medication Brand Name Start [...] = 1 TABLET SOLD: 05/27/2020 [facility] Lorazepam 0.5 MG Oral Tablet Lorazepam 05/27/2020 12:00:00 AM EST ORAL active [facility] ([facility]) 50 mg 05/07/2020 12:00:00 AM EST tablet 30 TAKE TWO TABLETS BY MOUTH EVERY DAY NEEDED FOR ATRIAL FIBRILATION TAKE TWO TABLETS BY MOUTH EVERY DAY NEEDED FOR ATRIAL FIBRILATION SOLD: 2020 [facility] Bisoprolol Fumarate 5 MG Oral Tablet Bisoprolol Fumarate 12:00:00 AM EST ORAL active [facility] ([facility]) 5 mg 05/05/2020 12:00:00 AM EST tablet 60 TAKE ONE TABLET BY MOUTH TWICE A DAY FOR RESTING HR>90 BPM TAKE ONE TABLET BY MOUTH TWICE A DAY FOR RESTING HR>90 BPM SOLD: 05/06/2020 [facility] Atenolol 25 MG Oral Tablet Atenolol 05/02/2020 12:00:00 AM EST ORAL completed [facility] ([facility]) Atenolol 25 MG Oral Tablet Atenolol 04/27/2020 12:00:00 AM EST ORAL completed [facility] ([facility]) 80 mg 04/20/2020 12:00:00 AM EST tablet 90 TAKE ONE TABLET BY MOUTH AT BEDTIME TAKE ONE TABLET BY MOUTH AT BEDTIME SOLD: 04/21/2020 [facility] Atenolol 25 MG Oral Tablet ATENOLOL 04/20/2020 12:00:00 AM EST tablet 180 TAKE ONE TABLET BY MOUTH TWICE A DAY TAKE ONE TABLET BY MOUTH TWICE A DAY SOLD: 04/21/2020 [facility] valsartan 80 MG Oral Tablet Valsartan 04/19/2020 12:00:00 AM EST ORAL active [facility] ([facility]) Flecainide Acetate 50 MG Oral Tablet Flecainide Acetate 03/2021 12:00:00 AM EST ORAL active [facility] ([facility]) Atenolol 25 MG Oral Tablet Atenolol 04/19/2020 12:00:00 AM EST ORAL completed [facility] ([facility]) 50 mg 04/15/2020 12:00:00 AM EST tablet 60 TAKE ONE TABLET BY MOUTH TWICE A DAY TAKE ONE TABLET BY MOUTH TWICE A DAY SOLD: 04/15/2020 [facility] Atenolol 50 MG Oral Tablet ATENOLOL [...] DO NOT TAKE COQ10 SOLD: 04/15/2020 [facility] Flecainide Acetate 50 MG Oral Tablet Flecainide Acetate 10/2020 12:00:00 AM EST ORAL completed [facility] ([facility]) Atenolol 50 MG Oral Tablet Atenolol 04/14/2020 12:00:00 AM EST ORAL completed [facility] ([facility]) Mirtazapine 15 MG Oral Tablet Mirtazapine 04/14/2020 12:00:00 AM EST completed [facility] ([facility]) rivaroxaban 20 MG Oral Tablet [Xarelto] Xarelto 04/14/2020 12:00:0 0 AM EST ORAL active [facility] ([facility] Amlodipine 5 MG Oral Tablet amLODIPine (NORVASC) 5 MG tablet amLODIPine (NORVASC) 5 MG tablet 04/14/2020 12:00:00 AM EST 5 mg Oral active Take 1 tablet (5 mg total) by mouth daily [facility] 5 mg 04/13/2020 12:00:00 AM EST tablet [...] mg total) by mouth daily with dinner [facility] 2 ML Midazolam 1 MG/ML Injection midazolam (VERSED) in jection midazolam (VERSED) injection 04/12/2020 02:11:53 PM EST active As needed, Starting Sat04/12/20 at 1411, Intra-Procedure [facility] Medication administered onsite fentaNYL Citrate (PF) (SUBLIMAZE) injection 9838-3211-46 04/12/2020 02:11:40 PM EST active As neede d, Starting Tu04/12/20 at 1411, Intra-Procedure [facility] Medication administered onsite Diltiazem Hydrochloride 60 MG Oral Tablet diltiazem (C ARDIZEM) tablet 60 mg diltiazem (CARDIZEM) tablet 60 mg 04/11/2020 06:00:00 PM EST 60 mg Oral active 60 mg, Oral, Every 6 hours (scheduled), First dose on Sat04/11/20 at 1800 [facility] Medication administered onsite rivaroxaban 20 MG Oral Tablet rivaroxaban (XARELTO) ta blet 20 mg rivaroxaban (XARELTO) tablet 20 mg 04/11/2020 06:00:00 PM EST 20 mg Oral active 20 mg, Oral, Daily with dinner, First dose on Sat04/11/20 at 1800 [facility] Medication administered onsite ondansetron (ZOFRAN) injection 4 mg [id number] 04/11/2020 03:32:1 5 PM EST 4 mg Intravenous active 4 mg, In travenous, Every 4 hours PRN, nausea, vomiting, Starting Sat04/11/20 at 1532 [facility] Medication administered onsite Acetaminophen 325 MG Oral Tablet acetaminophen (TYLENO L) 325 MG tablet 650 mg acetaminophen (TYLENOL) 325 MG tablet 650 mg 04/11/2020 03:32:15 PM EST 650 mg Oral active 650 mg, Or al, Every 4 hours PRN, mild pain (1-3), headaches, Starting Sat04/11/20 at 1532
"Maximum dose of acetaminophen is 4,000 mg from all sources in 24 hours."
[facility] Medication administered onsite 60 mg 04/11/2020 12:00:00 AM EST tablet 120 TAKE ONE TABLET BY MOUTH EVERY 6 HOURS TAKE ONE TABLET BY MOUTH EVERY 6 HOURS SOLD: 04/13/2020 [facility] Atenolol 25 MG Oral Tablet [...] 04/06/2020 12:00:00 AM EST ORAL completed [facility] ([facility]) 30 mg 04/04/2020 12:00:00 AM EST tablet 120 TAKE ONE TABLET BY MOUTH FOUR TIMES A DAY TAKE ONE TABLET BY MOUTH FOUR TIMES A DAY SOLD: 04/04/2020 [facility] Diltiazem Hydrochloride 30 MG Oral Tablet Diltiazem HCL 04/04/2020 12:00:00 AM EST ORAL completed [facility] ([facility]) 24 HR Diltiazem Hydrochloride 120 MG Extended [...] EST ORAL completed [facility] ([facility] 24 HR Diltiazem Hydrochloride 300 MG Extended Release Oral Capsule Diltiazem HCL ER Beads 03/31/2020 12:00:00 AM EST ORAL completed [facility] ([facility]) 20 mg 10/12/2019 12:00:00 AM EDT tablet [...] Doxycycline Monohydrate 100 MG Oral Capsule Doxycycline [place] hydrate 04/28/2019 12:00:00 AM EST ORAL active M EDENT ([facility]) Atenolol 25 MG Oral Tablet Atenolol 04/28/2019 12:00:00 AM EST active [facility] ([facility] 100 mg 03/30/2019 12:00:00 AM EST capsule [...] by mouth 4 (four) times a day [facility] rivaroxaban 15 MG Oral Tablet rivaroxaban (XARELTO) 15 MG TABS rivaroxaban (XARELTO) 15 MG TABS 15 mg Oral aborted [place] 15 mg by mouth daily [facility] Atenolol 25 MG Oral Tablet atenolol (TENORMIN) 25 MG t ablet atenolol (TENORMIN) 25 MG tablet 25 mg Oral aborted Take 25 mg by mouth daily [facility] Insurance Providers Payer name Policy type / Coverage type Policy ID Covered constitution party ID Covered constitution party's relationship to saldaña Policy Saldaña Plan Information [facility] [id number] SP [id number] MEDICARE [id number] SP [id number] [facility] [id number] SP [id number] UMR O [id number] S [id number] MEDICARE C [id number] S [id number] MEDICARE [id number] MEDICARE [id number] Regla [id number] Umr Commercial [id number] Self [id number] [facility] [id number] SP [id number] Umr Commercial [id number] Self [id number] Umr Medigap Part B [id number] Self [id number] [place] [employer] Ppo Commercial [id number] Self [id number] Umr Medigap Part B [id number] Self [id number] Umr Commercial [id number] Self [id number] Umr Commercial [id number] Self [id number] Umr Commercial [id number] Self [id number] Umr Commercial [id number] Self [id number] Umr Commercial [id number] Self [id number] Umr Commercial [id number] Self [id number] Umr Commercial [id number] Self [id number] Umr Commercial [id number] Self [id number] Umr Commercial [id number] Self [id number] [id number] Umr Commercial [id number] Self [id number] POMCO [id number] S [id number] Umr Commercial [id number] Self [id number] Umr Medigap Part B [id number] Self [id number] Umr Medigap Part B [id number] Self [id number] Umr Commercial [id number] Self [id number] 3400 Umr Commercial [id number] Self [id number] [id number] Umr Commercial [id number] Self [id number] [id number] Umr Commercial [id number] Self [id number] Umr Commercial [id number] Self [id number] [id number] Umr Commercial [id number] Self [id number] [id number] Umr Commercial [id number] Self [id number] [id number] Umr Commercial [id number] Self [id number] 3400 Umr Commercial [id number] Self [id number] 3400 Umr Commercial [id number] Self [id number] [id number] Umr Medigap Part B [id number] Self [id number] POM[facility] [id number] SP [id number] [employer] [employer] Ppo Commercial [id number] Self [id number] POMCO COMM SELF [id number] S [id number] Problems, Conditions, and Diagnoses Code Display Name Description Problem Type Effective Dates Data Source(s) 083141253 Paroxysmal atrial fibrillation Paroxysmal atrial fibri llation Problem 04/19/2020 12:00:00 AM EST [facility] ([facility]) [id number] Essential hypertension Essential hypertension Problem 04/19/2020 12:00:00 AM EST [facility] ([facility]) I48.3 Typical atrial flutter Typical atrial flutter [id number] 04/11/2020 12:00:00 AM [facility] I48.92 Atrial flutter Atrial flutter [id number] 04/11/2020 12:00: 00 AM [facility] I48.3 Typical atrial flutter Typical atrial flutter Diagnosi s 04/11/2020 02:03:45 PM [facility] I48.92 Unspecified atrial flutter Unspecified atrial flutter Diagnosis 04/11/2020 02:03:45 PM EST [facility] Surgeries/Procedures Procedure Description Date Indications Data Source(s) ECG ROUTINE ECG W/LEAST 12 LDS W/I&R 04/19/2020 12:00: 00 AM EST MEDMOON ([facility]) Arterial Pressure Waveform Analysis For Assessment Of Centra l Art 04/19/2020 12:00:00 AM EST ASIA ([facility]) BLOOD COUNT COMPLETE AUTOMATED CBC Routine 04/13/2020 4:23 A M EST 04/13/2020 09:23:00 AM EST [facility] BASIC METABOLIC PANEL CALCIUM TOTAL BASIC METABOLIC PANEL Routi ne 04/13/2020 4:23 AM EST 04/13/2020 09:23:00 AM EST [facility] EP STUDY EP STUDY Routine 04/12/2020 2:29 PM EST Typical atrial flutter 04/12/2020 07:29:52 PM EST Typical atrial flutter [facility] Typical atrial flutter ECHO TTHRC R-T 2D W/WOM-MODE COMPL SPEC&COLR DOP ECHOCARDIO GRAM TRANSTHORACIC Routine 04/12/2020 7:30 AM EST 04/12/2020 12:30:00 PM EST [facility] ECG ROUTINE ECG W/LEAST 12 LDS TRCG ONLY W/O I&R ECG 12-LEAD Routine 04/12/2020 6:35 AM EST 04/12/2020 11:35:16 AM EST [facility] BLOOD COUNT COMPLETE AUTOMATED CBC Routine 04/12/2020 5:19 A M EST 04/12/2020 10:19:00 AM EST [facility] BASIC METABOLIC PANEL CALCIUM TOTAL BASIC METABOLIC PANEL Routi ne 04/12/2020 5:19 AM EST 04/12/2020 10:19:00 AM EST [facility] THROMBOPLASTIN TIME PARTIAL PLASMA/WHOLE BLOOD APTT Routine 04/11/2020 2:55 PM EST 04/11/2020 07:55:00 PM EST [facility] PROTHROMBIN TIME PROTIME-INR Routine 04/11/2020 2:55 PM EST 04/11/2020 07:55:00 PM EST [facility] BLOOD COUNT COMPLETE AUTOMATED CBC Routine 04/11/2020 2:55 P M EST 04/11/2020 07:55:00 PM EST [facility] COMPREHENSIVE METABOLIC PANEL COMPREHENSIVE METABOLIC PANEL Rou elder 04/11/2020 2:55 PM EST 04/11/2020 07:55:00 PM EST [facility] ECG ROUTINE ECG W/LEAST 12 LDS W/I&R ECG 12-LEAD Routine 04/11/2020 2:01 PM EST 04/11/2020 07:01:27 PM [facility] Electrocardiogram Complete 04/07/2020 12:00:00 AM EST [facility] ([facility]) ECG ROUTINE ECG W/LEAST 12 LDS W/I&R 12/03/2019 12:00: 00 AM EDT [facility] ([facility]) Omt 7-8 Body Regions 06/24/2019 12:00:00 AM EDT [facility] ([facility]) Omt 7-8 Body Regions 06/05/2019 12:00:00 AM EST [facility] ([facility]) Omt 7-8 Body Regions 05/08/2019 12:00:00 AM EST [facility] ([facility]) ECG ROUTINE ECG W/LEAST 12 LDS W/I&R 04/29/2019 12:00: 00 AM EST [facility] ([facility]) Omt 7-8 Body Regions 04/07/2019 12:00:00 AM EST [facility] ([facility]) Results ID Date Data Source [id number] 05/30/2020 04:29:00 AM EST [facility] ([facility]) Name Value Range Interpretation Code Description Data Kathi rce(s) Supporting Document(s) Phosphate [Moles/volume] in Serum or Plasma 3.6 mg/dL 2.5- 4.9 Normal (applies to non-numeric results) [facility] ([facility]) Lipase [Enzymatic activity/volume] in Serum or Plasma 235 U/L 73-393 Normal (applies to non-numeric results) [facility] ([facility]) Magnesium [Mass/volume] in Serum or Plasma 2.1 mg/dL 1.8-2 .4 Normal (applies to non-numeric results) [facility]) Thyrotropin [Units/volume] in Serum or Plasma 2.430 uIU/ML 0. 358-3.740 Normal (applies to non-numeric results) [facility] ([facility]) Thyroxine (T4) free [Mass/volume] in Serum or Plasma 1.22 ng/dL 0.76-1.46 Normal (applies to non-numeric results) [facility] ([facility]) ID Date Data Source [id number] 05/30/2020 04:29:00 AM EST [facility] ([facility]) Name Value Range Interpretation Code Description Data Kathi rce(s) Supporting Document(s) Blood Urea Nitrogen 15 mg/dL 7-18 Normal (applies to non-nume kelly results) [facility] ([facility]) Glucose, Fasting 85 mg/dL 70-100 Normal (applies to non-numeric results) [facility] ([facility]) Creatinine For GFR 0.76 mg/dL 0.55-1.30 Normal (applies to non -numeric results) [facility] ([facility]) Glomerular Filtration Rate Laboratory test result Normal (applies to non- numeric results) [facility] ([facility]) <content>Units are mL/min/1.73 m2</content>
<content></content>
<content>Chronic Kidney Disease Staging per NKF:</content>
<content></content>
<content>Stage I & II GFR >=60 Normal to Mildly Decreased</content>
<content>Stage III GFR 30- 59 Moderately Decreased</content>
<content>Stage IV GFR 15-29 Severely Decreased</content>
<content>Stage V GFR <15 Very Little GFR Left</content>
<content>ESRD GFR <15 on MODULAR HOME CREW MEMBER</content>
<content></content> Potassium Serum 3.9 meq/L 3.5-5.1 Normal (applies to non-numeric results) [facility] ([facility]) Sodium Level 143 meq/L 136-145 Normal (applies to non-numeric res ults) [facility] ([facility]) Chloride Level 106 meq/L 98-107 Normal (applies to non-numeric r esults) [facility] ([facility]) Carbon Dioxide Level 29 meq/L 21-32 Normal (applies to non-num pop results) [facility] ([facility]) Anion Gap 8 meq/L 8-16 Normal (applies to non-numeric resul ts) [facility] ([facility]) Calcium Level 9.5 mg/dL 8.8-10.2 Normal (applies to non-numeric re sults) [facility] ([facility]) ID Date Data Source [id number] 05/30/2020 04:29:00 AM EST [facility] ([facility]) Name Value Range Interpretation Code Description Data Kathi rce(s) Supporting Document(s) Ast/Sgot 30 U/L 7-37 Normal (applies to non-numeric resul ts) [facility] ([facility]) Alt/SGPT 43 U/L 12-78 Normal (applies to non-numeric resul ts) [facility] ([facility]) Bilirubin,Total 0.7 mg/dL 0.2-1.0 Normal (applies to non-numeric results) [facility] ([facility]) Alkaline Phosphatase 95 U/L 45-117 Normal (applies to non-num pop results) [facility] ([facility]) Bilirubin,Direct 0.2 mg/dL 0.0-0.2 Normal (applies to non-numeric results) [facility] ([facility]) Total Protein 6.6 GM/DL 6.4-8.2 Normal (applies to non-numeric re sults) [facility] ([facility]) Albumin 3.8 GM/DL 3.2-5.2 Normal (applies to non-numeric resul ts) [facility] ([facility]) Albumin/Globulin Ratio 1.4 1.2-2.2 Normal (applies to non-n umeric results) [facility] ([facility]) ID Date Data Source [id number] 05/30/2020 04:29:00 AM EST [facility] ([facility]) Name Value Range Interpretation Code Description Data Kathi rce(s) Supporting Document(s) CPK Creatine Phosphokinase 62 U/L 26-192 Queenie l (applies to non-numeric results) [facility] ([facility]) MB/CK Relative Index 2.42 Normal (applies to non-num pop results) [facility] ([facility]) <content>DIAGNOSIS CRITERIA</content>
<content>MMB ng/ml Relative Index (RI)</content>
<content>NON-AMI < or = 5 N/A</content>
<content>NGUYEN ZONE > 5 < or = 4</content>
<content>AMI > 5 > 4</content>
<content></content> CK-MB Value Mass 1.5 ng/mL Normal (applies to non-numeric results) [facility] ([facility]) Troponin I Laboratory test result Normal (applies to non-n umeric results) [facility] ([facility]) <content>Troponin I Reference Interval f or [employer] [place] LOCI:</content>
<content></content>
<content>99th Percentile= 0.00-0.045 ng/ml</content>
<content></content>
<content>Risk Stratification:</content>
<content><= 0.10 ng/ml Decreased Risk for Adverse Clinical</content>
<content>Events.</content>
<content>0.10-1.50 ng/ml Increased Risk for Adverse Clinical</content>
<content>Events. Evaluation of additional</content>
<content>criterion and/or repeat testing in 2-6</content>
<content>hours is suggested to rule out myocardial</content>
<content>damage.</content>
<content>>= 1.50 ng/ml Indicative of Myocardial Injury.</content>
<content></content> ID Date Data Source [id number] 05/30/2020 04:29:00 AM EST [facility]) Name Value Range Interpretation Code Description Data Kathi rce(s) Supporting Document(s) aPTT in Platelet poor plasma by Coagulation assay 38.4 s 24.2-38.5 Normal (applies to non-numeric results) [facility] ([facility]) ID Date Data Source [id number] 05/30/2020 04:29:00 AM EST [facility]) Name Value Range Interpretation Code Description Data Kathi rce(s) Supporting Document(s) Inr 1.68 Normal (applies to non-numeric resul ts) [facility] ([facility]) THERAPUTIC HUMAN INR VALUES INDICATIONS NORMAL RANGES PROPHYLAXIS/TREATMENT OF: VENOUS THROMBOSIS 2.0-3.0 PULMONARY EMBOLISM 2.0-3.0 PREVENTION OF SYSTEMIC EMBOLISM FROM: TISSUE HEART VALVES 2.0-3.0 ACUTE MYOCARDIAL INFARCTION 2.0-3.0 VALVULAR HEART DISEASE 2.0-3.0 ATRIAL FIBRILLATION 2.0-3.0 MECHANICAL VALVES(HIGH RISK) 2.5-3.5 RECURRENT MYOCARDIAL INFARCTION 2.5-3.5 Prothrombin Time 20.2 s 12.5-14.3 Above high normal M [facility]) ID Date Data Source [id number] 05/30/2020 04:29:00 AM EST [facility] ([facility]) Name Value Range Interpretation Code Description Data Kathi rce(s) Supporting Document(s) White Blood Count 6.7 10 4.0-10.0 Normal (applies to non-numeri c results) [facility] ([facility]) Hemoglobin 14.4 g/dL 12.0-15.5 Normal (applies to non-numeric resul ts) [facility] ([facility]) Red Blood Count 4.69 10 4.00-5.40 Normal (applies to non-numeric results) [facility] ([facility]) Hematocrit 42.2 % 36.0-47.0 Normal (applies to non-numeric resul ts) [facility] ([facility]) Mean Corpuscular Volume 90.0 fl 80.0-96.0 Normal ( applies to non-numeric results) [facility] ([facility]) Mean Corpuscular Hemoglobin 30.7 pg 27.0-33.0 Norm al (applies to non-numeric results) [facility] ([facility]) Red Cell Distribution Width 12.0 % 11.5-14.5 Norm al (applies to non-numeric results) [facility] ([facility]) Mean Corpuscular HGB Conc 34.1 g/dL 32.0-36.5 Normal (applies to non-numeric results) [facility] ([facility]) Platelet Count, Automated 244 10 150-450 Normal (applies to non-numeric results) [facility] ([facility]) [place] % 10.5 % 2.0-8.0 Above high normal [facility] ([facility]) Neutrophils % 50.3 % 36.0-66.0 Normal (applies to non-numeric re sults) [facility] ([facility]) Lymph % 37.3 % 24.0-44.0 Normal (applies to non-numeric resul ts) [facility] ([facility]) Eos % 1.2 % 0.0-3.0 Normal (applies to non-numeric resul ts) [facility] ([facility]) Immature Granulocyte % 0.3 % 0-3.0 Normal (applies to non-n umeric results) [facility] ([facility]) Baso % 0.4 % 0.0-1.0 Normal (applies to non-numeric resul ts) [facility] ([facility]) Lymph # 2.5 10 1.5-5.0 Normal (applies to non-numeric resul ts) [facility] ([facility]) Neutrophils # 3.4 10 1.5-8.5 Normal (applies to non-numeric re sults) [facility] ([facility]) Nucleated Red Blood Cell % 0.0 % 0-0 Normal (applies to n on-numeric results) [facility] ([facility]) [place] # 0.7 10 0.0-0.8 Normal (applies to non-numeric resul ts) [facility] ([facility]) Eos # 0.1 10 0.0-0.5 Normal (applies to non-numeric resul ts) [facility] ([facility]) Baso # 0.0 10 0.0-0.2 Normal (applies to non-numeric resul ts) [facility]) ID Date Data Source [id number] 2020 07:05:00 PM EST [facility] ([facility]) Name Value Range Interpretation Code Description Data Kathi rce(s) Supporting Document(s) Laboratory test finding (navigational concept) 0.77 0 .4-2.0 Normal (applies to non-numeric results) [facility]) ID Date Data Source [id number] 2020 01:51:00 PM EST [facility] ([facility]) Name Value Range Interpretation Code Description Data Kathi rce(s) Supporting Document(s) Laboratory test finding (navigational concept) 41.0 % 3 8.0-51.0 Normal (applies to non-numeric results) [facility]) Laboratory test finding (navigational concept) 140 meq/L 1 36-145 Normal (applies to non-numeric results) [facility] ([facility]) Laboratory test finding (navigational concept) 4.1 meq/L 3 .5-5.1 Normal (applies to non-numeric results) [facility] ([facility]) Laboratory test finding (navigational concept) 92 mg/dL 7 0-105 Normal (applies to non-numeric results) [facility] ([facility]) Laboratory test finding (navigational concept) 104 meq/L 9 8-109 Normal (applies to non-numeric results) [facility] ([facility]) Laboratory test finding (navigational concept) 4.7 mg/dL 4 .5-5.3 Normal (applies to non-numeric results) [facility] ([facility]) Laboratory test finding (navigational concept) 18 mg/dL 8 -26 Normal (applies to non-numeric results) [facility] ([facility]) Laboratory test finding (navigational concept) 27.0 MM/L 2 3.0-27.0 Normal (applies to non-numeric results) [facility] ([facility]) Laboratory test finding (navigational concept) 0.7 mg/dL 0 .6-1.3 Normal (applies to non-numeric results) [facility] ([facility]) ID Date Data Source [id number] 05/22/2020 04:48:00 PM EST [facility] ([facility]) Name Value Range Interpretation Code Description Data Kathi rce(s) Supporting Document(s) Red Blood Count 4.74 10 4.00-5.40 Normal (applies to non-numeric results) [facility] ([facility]) White Blood Count 7.6 10 4.0-10.0 Normal (applies to non-numeri c results) [facility] ([facility]) Hematocrit 42.5 % 36.0-47.0 Normal (applies to non-numeric resul ts) [facility] ([facility]) Hemoglobin 14.7 g/dL 12.0-15.5 Normal (applies to non-numeric resul ts) [facility] ([facility]) Mean Corpuscular Volume 89.7 fl 80.0-96.0 Normal ( applies to non-numeric results) [facility] ([facility]) Mean Corpuscular HGB Conc 34.6 g/dL 32.0-36.5 Normal (applies to non-numeric results) [facility] ([facility]) Red Cell Distribution Width 12.0 % 11.5-14.5 Norm al (applies to non-numeric results) [facility] ([facility]) Mean Corpuscular Hemoglobin 31.0 pg 27.0-33.0 Norm al (applies to non-numeric results) [facility] ([facility]) Neutrophils % 63.4 % 36.0-66.0 Normal (applies to non-numeric re sults) [facility] ([facility]) Lymph % 25.7 % 24.0-44.0 Normal (applies to non-numeric resul ts) [facility] ([facility]) Platelet Count, Automated 249 10 150-450 Normal (applies to non-numeric results) [facility] ([facility]) [place] % 9.6 % 2.0-8.0 Above high normal [facility] ([facility]) Baso % 0.4 % 0.0-1.0 Normal (applies to non-numeric resul ts) [facility] ([facility]) Eos % 0.5 % 0.0-3.0 Normal (applies to non-numeric resul ts) [facility] ([facility]) Immature Granulocyte % 0.4 % 0-3.0 Normal (applies to non-n umeric results) [facility] ([facility]) Neutrophils # 4.8 10 1.5-8.5 Normal (applies to non-numeric re sults) [facility] ([facility]) Nucleated Red Blood Cell % 0.0 % 0-0 Normal (applies to n on-numeric results) [facility] ([facility]) Eos # 0.0 10 0.0-0.5 Normal (applies to non-numeric resul ts) [facility] ([facility]) [place] # 0.7 10 0.0-0.8 Normal (applies to non-numeric resul ts) [facility] ([facility]) Lymph # 2.0 10 1.5-5.0 Normal (applies to non-numeric resul ts) [facility] ([facility]) Baso # 0.0 10 0.0-0.2 Normal (applies to non-numeric resul ts) [facility] ([facility]) ID Date Data Source [id number] 05/22/2020 04:47:00 PM EST [facility] ([facility]) Name Value Range Interpretation Code Description Data Kathi rce(s) Supporting Document(s) CPK Creatine Phosphokinase 58 U/L 26-192 Queenie l (applies to non-numeric results) [facility]) CK-MB Value Mass 1.2 ng/mL Normal (applies to non-numeric results) [facility] ([facility]) MB/CK Relative Index 2.07 Normal (applies to non-num pop results) [facility]) <content>DIAGNOSIS CRITERIA</content>
<content>MMB ng/ml Relative Index (RI)</content>
<content>NON-AMI < or = 5 N/A</content>
<content>NGUYEN ZONE > 5 < or = 4</content>
<content>AMI > 5 > 4</content>
<content></content> Troponin I Laboratory test result Normal (applies to non-n umeric results) [facility] ([facility]) <content>Troponin I Reference Interval f or [employer] [place] LOCI:</content>
<content></content>
<content>99th Percentile= 0.00-0.045 ng/ml</content>
<content></content>
<content>Risk Stratification:</content>
<content><= 0.10 ng/ml Decreased Risk for Adverse Clinical</content>
<content>Events.</content>
<content>0.10-1.50 ng/ml Increased Risk for Adverse Clinical</content>
<content>Events. Evaluation of additional</content>
<content>criterion and/or repeat testing in 2-6</content>
<content>hours is suggested to rule out myocardial</content>
<content>damage.</content>
<content>>= 1.50 ng/ml Indicative of Myocardial Injury.</content>
<content></content> ID Date Data Source [id number] 05/22/2020 04:47:00 PM EST [facility]) Name Value Range Interpretation Code Description Data Kathi rce(s) Supporting Document(s) Alkaline Phosphatase 101 U/L 45-117 Normal (applies to non-num pop results) [facility] ([facility]) Alt/SGPT 49 U/L 12-78 Normal (applies to non-numeric resul ts) [facility]) Ast/Sgot 33 U/L 7-37 Normal (applies to non-numeric resul ts) [facility] ([facility]) Bilirubin,Total 0.4 mg/dL 0.2-1.0 Normal (applies to non-numeric results) [facility] ([facility]) Total Protein 6.5 GM/DL 6.4-8.2 Normal (applies to non-numeric re sults) [facility] ([facility]) Bilirubin,Direct 0.1 mg/dL 0.0-0.2 Normal (applies to non-numeric results) [facility] ([facility]) Albumin/Globulin Ratio 1.3 1.2-2.2 Normal (applies to non-n umeric results) [facility] ([facility]) Albumin 3.7 GM/DL 3.2-5.2 Normal (applies to non-numeric resul ts) [facility] ([facility]) ID Date Data Source [id number] 05/22/2020 04:47:00 PM EST [facility] ([facility]) Name Value Range Interpretation Code Description Data Kathi rce(s) Supporting Document(s) Blood Urea Nitrogen 21 mg/dL 7-18 Above high normal [facility] ([facility]) Glucose, Fasting 77 mg/dL 70-100 Normal (applies to non-numeric results) [facility] ([facility]) Creatinine For GFR 0.86 mg/dL 0.55-1.30 Normal (applies to non -numeric results) [facility] ([facility]) Glomerular Filtration Rate Laboratory test result Normal (applies to non- numeric results) [facility] ([facility]) <content>Units are mL/min/1.73 m2</content>
<content></content>
<content>Chronic Kidney Disease Staging per NKF:</content>
<content></content>
<content>Stage I & II GFR >=60 Normal to Mildly Decreased</content>
<content>Stage III GFR 30- 59 Moderately Decreased</content>
<content>Stage IV GFR 15-29 Severely Decreased</content>
<content>Stage V GFR <15 Very Little GFR Left</content>
<content>ESRD GFR <15 on MODULAR HOME CREW MEMBER</content>
<content></content> Chloride Level 107 meq/L 98-107 Normal (applies to non-numeric r esults) [facility] ([facility]) Sodium Level 142 meq/L 136-145 Normal (applies to non-numeric res ults) [facility] ([facility]) Potassium Serum 4.0 meq/L 3.5-5.1 Normal (applies to non-numeric results) [facility] ([facility]) Anion Gap 8 meq/L 8-16 Normal (applies to non-numeric resul ts) [facility] ([facility]) Carbon Dioxide Level 27 meq/L 21-32 Normal (applies to non-num pop results) [facility] ([facility]) Calcium Level 9.2 mg/dL 8.8-10.2 Normal (applies to non-numeric re sults) [facility] ([facility]) ID Date Data Source [id number] 05/22/2020 04:47:00 PM EST [facility] ([facility]) Name Value Range Interpretation Code Description Data Kathi rce(s) Supporting Document(s) Lipase [Enzymatic activity/volume] in Serum or Plasma 371 U/L 73-393 Normal (applies to non-numeric results) [facility]) ID Date Data Source [id number] 04/14/2020 08:40:00 PM EST [facility] ([facility]) Name Value Range Interpretation Code Description Data Kathi rce(s) Supporting Document(s) Laboratory test finding (navigational concept) 0.38 ng/mL 0 .00-0.08 Above high normal [facility] ([facility]) ID Date Data Source [id number] 04/14/2020 08:34:00 PM EST [facility] ([facility]) Name Value Range Interpretation Code Description Data Kathi rce(s) Supporting Document(s) Laboratory test finding (navigational concept) 48.0 % 3 8.0-51.0 Normal (applies to non-numeric results) [facility] ([facility]) Laboratory test finding (navigational concept) 144 mg/dL 7 0-105 Above high normal [facility] ([facility]) Laboratory test finding (navigational concept) 3.8 meq/L 3 .5-5.1 Normal (applies to non-numeric results) [facility] ([facility]) Laboratory test finding (navigational concept) 138 meq/L 1 36-145 Normal (applies to non-numeric results) [facility] ([facility]) Laboratory test finding (navigational concept) 104 meq/L 9 8-109 Normal (applies to non-numeric results) [facility] ([facility]) Laboratory test finding (navigational concept) 25.0 MM/L 2 3.0-27.0 Normal (applies to non-numeric results) [facility] ([facility]) Laboratory test finding (navigational concept) 23 mg/dL 8 -26 Normal (applies to non-numeric results) [facility] ([facility]) Laboratory test finding (navigational concept) 4.4 mg/dL 4 .5-5.3 Below low normal [facility] ([facility]) Laboratory test finding (navigational concept) 0.7 mg/dL 0 .6-1.3 Normal (applies to non-numeric results) [facility] ([facility]) ID Date Data Source [id number] 04/14/2020 08:30:00 PM EST [facility] ([facility]) Name Value Range Interpretation Code Description Data Kathi rce(s) Supporting Document(s) White Blood Count 9.3 10 4.0-10.0 Normal (applies to non-numeri c results) [facility] ([facility]) Hemoglobin 17.0 g/dL 12.0-15.5 Above high normal [facility] ([facility]) Hematocrit 49.0 % 36.0-47.0 Above high normal [facility] ([facility]) Red Blood Count 5.41 10 4.00-5.40 Above high normal [facility] ([facility]) Mean Corpuscular Hemoglobin 31.4 pg 27.0-33.0 Norm al (applies to non-numeric results) [facility] ([facility]) Mean Corpuscular HGB Conc 34.7 g/dL 32.0-36.5 Normal (applies to non-numeric results) [facility] ([facility]) Mean Corpuscular Volume 90.6 fl 80.0-96.0 Normal ( applies to non-numeric results) [facility] ([facility]) Red Cell Distribution Width 11.8 % 11.5-14.5 Norm al (applies to non-numeric results) [facility] ([facility]) Neutrophils % 68.7 % 36.0-66.0 Above high normal [facility] ([facility]) Platelet Count, Automated 236 10 150-450 Normal (applies to non-numeric results) [facility] ([facility]) [place] % 9.3 % 0.0-5.0 Above high normal [facility] ([facility]) Lymph % 20.4 % 24.0-44.0 Below low normal [facility] ( [facility]) Eos % 0.9 % 0.0-3.0 Normal (applies to non-numeric resul ts) [facility] ([facility]) Baso % 0.3 % 0.0-1.0 Normal (applies to non-numeric resul ts) [facility] ([facility]) Nucleated Red Blood Cell % 0.0 % 0-0 Normal (applies to n on-numeric results) [facility] ([facility]) Immature Granulocyte % 0.4 % 0-3.0 Normal (applies to non-n umeric results) [facility] ([facility]) Lymph # 1.9 10 1.5-5.0 Normal (applies to non-numeric resul ts) [facility] ([facility]) [place] # 0.9 10 0.0-0.8 Above high normal [facility] ([facility]) Neutrophils # 6.4 10 1.5-8.5 Normal (applies to non-numeric re sults) [facility] ([facility]) Eos # 0.1 10 0.0-0.5 Normal (applies to non-numeric resul ts) [facility] ([facility]) Baso # 0.0 10 0.0-0.2 Normal (applies to non-numeric resul ts) [facility] ([facility]) ID Date Data Source [id number] 04/14/2020 03:26:00 PM EST [facility] ([facility] Name Value Range Interpretation Code Description Data Kathi rce(s) Supporting Document(s) Hematocrit [Volume Fraction] of Blood by Automated count 49.0 [facility] ([facility]) Hemoglobin [Mass/volume] in Blood 17.0 [facility] ([facility]) Erythrocyte mean corpuscular volume [Entitic volume] by Automate d count 90.6 [facility] ([facility]) Erythrocyte mean corpuscular hemoglobin [Entitic mass] by Au tomated count 31.4 [facility] ([facility]) Erythrocyte mean corpuscular hemoglobin concentration [Mass/volume] by Automated count 34.7 [facility] Neutrophils 68.7 [facility] ([facility]) Platelet mean volume [Entitic volume] in Blood by [place] Laboratory test result [facility] ([facility]) Platelets [#/volume] in Blood [...] by Manual count Laboratory test result [facility] ([facility]) Basophils/100 leukocytes in Blood [...] [facility]) ID Date Data Source [id number] 04/14/2020 03:26:00 PM EST [facility] ([facility]) ID Date Data Source [id number] 04/13/2020 12:19:30 PM [facility] INFORMATIONPatient MRN Name Date of Age Gend*PT [id number] Shaydaniel Mercy 1955 64 years F SDCXPT Location Admission Date/Time Visit ID Attending Provider04/11/20 1403 --- Zhanna Harris MD([id number]) EPI ID CSN Admitting Provider [id number] Zhanna Harris MD([id number]) Attestation signed by Zhanna Harris MD at 04/13/2020 12:19 PMATTENDING ADDENDUM:I saw and examined Ms. Arreola today, and agree with the exam, assessment,and plan of damon Benitez, noted above.In brief, Ms. Arreola presents with typical with successful RFA.I agree with the plan as noted above.Beto Harris M.D., [facility], RSClinical Cardiac Electrophysiology04/13/2020 12:18 PM --Cardiology Discharge Summary Mercy ArreolaMRN: [id number] date: 04/11/2020ttending Physician: [facility] Diagnosis: Typical atrial flutterSecondary Diagnoses: Principal Problem: [...] Lyme disease, status post treatment . Babeosis, 49086. Atrial flutter status post multiple DC cardioversions. Patient on Xarelto.4. Distant history of tobacco useThe patient presented to [facility] for palpitations witha heart rate in [...] VITAMIN C Take 500 mg by mouth ogcglO-Sqgumtv-R Tabs Take 1 tablet by mouth dailydicyclomine [...] Get Your MedicationsThese medications were sent to [facility] [place], [place] - [address] [place] [address] amLODIPine 5 MG tablet rivaroxaban 20 MG [...] Name Value Range Interpretation Code Description [facility] Document(s) ID Date Data Source [id number] 04/13/2020 06:50:43 AM EST [facility] Name Value Range Interpretation Code Description Data [facility](s) Supporting Document(s) SODIUM 139 mmol/L (136-145) [facility] POTASSIUM 4.3 mmol/L (3.6-5.2) [facility] CHLORIDE 105 mmol/L (100-108) [facility] CO2 25 mmol/L (22-31) [facility] ANION GAP 9 mmol/L (7-16) [facility] UREA NITROGEN 25 mg/dL (7-24) H [facility] CREATININE 0.80 mg/dL (0.60-1.00) [facility] BUN/CREAT RATIO 31.3 RATIO (10.0-20.0) [facility] GLUCOSE 71 mg/dL (70-99) [facility] CALCIUM 8.9 mg/dL (8.4-10.2) [facility] GFR >60 ml/min/1.73m2 (>59) [facility] GFR ( AMER) >60 ml/min/1.73m2 (>59) [facility] GFR INTERPRETATION [facility] --NORMAL KIDNEY FUNCTION OR MILD DISEASE - GFR >OR= 60CHRONIC KIDNEY DISEASE - GFR 15 - 59RENAL FAILURE - GFR <15 Est. GFR calculation based on the MDRDstudy equation, which assumes a steadystate for creatinine. Est. GFR should notbe used for medication dosing. ID Date Data Source [id number] 04/13/2020 04:36:41 AM EST [facility] Name Value Range Interpretation Code Description Data Kathi rce(s) Supporting Document(s) WBC 8.8 10*3/uL (4.1-11.0) [facility] RBC 5.24 10*6/uL (4.00-5.40) [facility] HGB 17.1 g/dL (12.0-16.0) [facility] HCT 49.1 % (36.0-47.0) [facility] PERFORMED AT [address] [place] [address] [address] [place] [address] MCV 93.7 fL (80.0-95.0) [facility] MCH 32.6 pg (27.0-32.0) [facility] MCHC 34.8 g/dL (32.0-36.0) [facility] RDW 12.4 % (10.5-14.5) [facility] PLT 234 10*3/uL (150-450) [facility] MPV 7.6 fL (7.1-10.7) [facility] ID Date Data Source [id number] 04/12/2020 02:52:26 PM EST [facility] Name Value Range Interpretation Code Description Data Kathi rce(s) Supporting Document(s) &PDF [facility] [id number] waW [file] [id number]== ID Date Data Source [id number] 04/12/2020 10:05:42 AM EST [facility] Name Value Range Interpretation Code Description Data Kathi rce(s) Supporting Document(s) &PDF [facility] [id number] waW [file] 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+sBgmZuz3ipwNYVD2XibQO99uo36Ka6qlQN5WGn [file] CrgnLjI8YVImEYK9PhXyTSd5Rs0gXXTNXp7+JLxjwYWtiQalNOWHUlZ1JOR4KZpxZVOUSz2O ID Date Data Source [id number] 04/12/2020 08:37:17 AM EST [facility] Name Value Range Interpretation Code Description Data Kathi rce(s) Supporting Document(s) EKG [facility] GSQRRb3gScFPQmUem9YpRnKeDUTiVW6ftne0J4T8kHVhU4TrnXVty2ujA9QmW6JtWLAgIOYVIM2YrYMg jb2 [file] D1v2ojGCZwKnOC/6AEnhL1dmSiRp3S61fUEeRoq2VYacNX8/+7b5WsG7Z/71z4osc/Yq9v+TIx6p+padded products finisher GK6ksogk7O/2DqOR2zEy9BQdJekY6V4T6+7PW7N6LH+H/tczAZwY3IRizN+hTTwkAByF+uyf/ccnYZWA GtP8yUNs2SW6GmYkZffZDyMMZDwJ9LYgw9uHMTTATN aBnMB2QAG2XmDcBLdLNoXHLkehHquenRUmFKJarNXRb/oAUkTdBES+wAuGBhHwISqyjWcKYOSCK8pLDD mtVsRH2hGmiwJRSRrKyxVNdZF4CpRQC6f5DzFELraRzaztxZHw+NC7JImoMk4D8lvkjpRvfcJ+gC+X76 1I6+eV90PRvGWeVNOBq1azwuSOWU8VwKQ37qwZBl68 JhTgbPhBroALSmUYklp40EqIPpuslWVpwymuH3Om5nSIuScWsUQHU7CXAvm+GBiZRrYCLleoquDBrBu9 nhvCxCLVzEs897dXhI+qfxdHM3CWYIqKsqHney+QSU+FZofVmApTQi9ZVxIQBNIbhi2wPwP8dMZKj9jE x0IGKNAXU0pxMAPbnZVOOTZcLM9u2Ce5A57XtNANBJ [file] Try8UxQTUrOJYDZq2+PoK1HUG1pOUbGlh2KhX6PxuhMAXLTo== ID Date Data Source [id number] 04/12/2020 06:32:35 AM EST [facility] Name Value Range Interpretation Code Description Data Kathi rce(s) Supporting Document(s) SODIUM 138 mmol/L (136-145) [facility] POTASSIUM 4.3 mmol/L (3.6-5.2) [facility] CHLORIDE 106 mmol/L (100-108) [facility] CO2 24 mmol/L (22-31) [facility] ANION GAP 8 mmol/L (7-16) [facility] UREA NITROGEN 29 mg/dL (7-24) H [facility] CREATININE 0.91 mg/dL (0.60-1.00) [facility] BUN/CREAT RATIO 31.9 RATIO (10.0-20.0) [facility] GLUCOSE 83 mg/dL (70-99) [facility] CALCIUM 9.0 mg/dL (8.4-10.2) [facility] GFR >60 ml/min/1.73m2 (>59) [facility] GFR ([facility]) >60 ml/min/1.73m2 (>59) [facility] GFR INTERPRETATION [facility] --NORMAL KIDNEY FUNCTION OR MILD DISEASE - GFR >OR= 60CHRONIC KIDNEY DISEASE - GFR 15 - 59RENAL FAILURE - GFR <15 Est. GFR calculation based on the MDRDstudy equation, which assumes a steadystate for creatinine. Est. GFR should notbe used for medication dosing. ID Date Data Source [id number] 04/12/2020 06:02:20 AM EST [facility] Name Value Range Interpretation Code Description Data Kathi rce(s) Supporting Document(s) WBC 8.1 10*3/uL (4.1-11.0) [facility] RBC 5.45 10*6/uL (4.00-5.40) [facility] HGB 18.1 g/dL (12.0-16.0) [facility] HCT 50.6 % (36.0-47.0) [facility] PERFORMED AT [address] [place] [address] N Y [id number] MCV 92.8 fL (80.0-95.0) [facility] MCH 33.1 pg (27.0-32.0) [facility] MCHC 35.7 g/dL (32.0-36.0) [facility] RDW 12.8 % (10.5-14.5) [facility] PLT 258 10*3/uL (150-450) [facility] MPV 8.0 fL (7.1-10.7) [facility] ID Date Data Source [id number] 04/11/2020 05:34:01 PM EST [facility] NT INFORMATIONPatient MRN Name Date of Age Gend*PT [id number] Mercy Arreola 1955 64 years F SDCXPT Location Admission Date/Time Visit ID Attending Provider04/11/20 1403 --- Zhanna Harris MD([id number]) EPI ID CSN Admitting Provider [id number] Zhanna Harris MD([id number]) Attestation signed by Zhanna Harris MD at [...] the plan as noted above.Beto Harris M.D., [facility]Clinical Cardiac Electrophysiology04/11/2020 4:17 PM [...] history of tobacco useThe patient presented to [facility] 04[facility]10[facility] for palpitations witha heart rate in [...] 15 mg daily, although review of records mgpsmbue82 mg daily which would be the appropriate dose.The patient denies any history of TIA/CVA, CAD, PAD. 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 She currently denies any symptoms other thanfatigue [...] file Gets together: Not on file Attends jew service: Not on file Active member of [...] symmetricSkin: No rash or lumps.Neurologic: Grossly normalDiagnosticsLabs, [facility]:Glucose 94Creatinine 0.68Sodium 138Potassium 4.1AST 49ALT 76Mag 2.2Troponin [...] amiodarone, she wasloaded with IV amiodarone at [facility]. Continue oral cardizem. Start PO amiodarone.Monitor blood pressure and heart rate. Continue Xarelto, 20mg dose as she hasnormal creatinine.Plan RFA ablation for tomorrow. Further recommendations per Dr. Harris.Follow up with Dr. Galarza in 1-2 weeks after discharge.Signature: MIRELLA Cliftonate: April 11, 2020Time: 2:11 PM Name Value Range Interpretation Code Description Data Kathi rce(s) Supporting Document(s) ID Date Data Source [id number] 04/11/2020 04:54:08 PM EST [facility] Name Value Range Interpretation Code Description Data Kathi rce(s) Supporting Document(s) SODIUM 142 mmol/L (136-145) [facility] POTASSIUM 4.5 mmol/L (3.6-5.2) [facility] CHLORIDE 105 mmol/L (100-108) [facility] CO2 24 mmol/L (22-31) [facility] ANION GAP 13 mmol/L (7-16) [facility] UREA NITROGEN 17 mg/dL (7-24) [facility] CREATININE 0.70 mg/dL (0.60-1.00) [facility] BUN/CREAT RATIO 24.3 RATIO (10.0-20.0) [facility] GLUCOSE 78 mg/dL (70-99) [facility] CALCIUM 9.4 mg/dL (8.4-10.2) [facility] TOTAL PROTEIN 6.2 g/dL (6.4-8.2) L [facility] ALBUMIN 3.7 g/dL (3.2-4.5) [facility] GLOBULIN 2.5 g/dL (2.7-4.3) L [facility] ALB/GLOB RATIO 1.5 RATIO [facility] ALKALINE PHOSPHATASE 111 U/L (45-117) [facility] BILIRUBIN,TOTAL 0.9 mg/dL (0.0-1.0) [facility] PLEASE NOTE:Total bilirubin results may be falselyelevated in patients taking Eltrombopag. AST (SGOT) 51 U/L (11-39) [facility] ALT (SGPT) 82 U/L (12-78) [facility] GFR >60 ml/min/1.73m2 (>59) [facility] GFR ( AMER) >60 ml/min/1.73m2 (>59) [facility] GFR INTERPRETATION [facility] --NORMAL KIDNEY FUNCTION OR MILD DISEASE - GFR >OR= 60CHRONIC KIDNEY DISEASE - GFR 15 - 59RENAL FAILURE - GFR <15 Est. GFR calculation based on the MDRDstudy equation, which assumes a steadystate for creatinine. Est. GFR should notbe used for medication dosing. ID Date Data Source [id number] 04/11/2020 04:38:13 PM EST [facility] Name Value Range Interpretation Code Description Data Kathi rce(s) Supporting Document(s) APTT 31.3 s (22.0-34.3) [facility] PERFORMED AT [address] [place] [address] N Y [id number] ID Date Data Source [id number] 04/11/2020 04:38:13 PM EST [facility] Name Value Range Interpretation Code Description Data Kathi rce(s) Supporting Document(s) PT 11.7 s (9.2-11.9) [facility] PERFORMED AT [address] [place] [address] N Y [address] INR 1.12 [facility] SUGGESTED THERAPEUTIC RANGES USING INR F ORSTABILIZED ANTICOAGULATED PATIENTS:STANDARD DOSE THERAPY INR 2.0-3.0 DVT, PE, PREVENT DVT OR EMBOLISMHIGH DOSE THERAPY INR 2.5-3.5 PREVENT EMBOLISM FROM MECHANICAL HEART VALVE ID Date Data Source [id number] 04/11/2020 04:31:31 PM EST [facility] Name Value Range Interpretation Code Description Data Kathi rce(s) Supporting Document(s) WBC 9.0 10*3/uL (4.1-11.0) [facility] RBC 5.81 10*6/uL (4.00-5.40) [facility] HGB 19.1 g/dL (12.0-16.0) [facility] HCT 54.4 % (36.0-47.0) [facility] PERFORMED AT [address] [place], [place] [address]USE N Y [address] MCV 93.7 fL (80.0-95.0) [facility] MCH 32.9 pg (27.0-32.0) [facility] MCHC 35.1 g/dL (32.0-36.0) [facility] RDW 12.8 % (10.5-14.5) [facility] PLT 274 10*3/uL (150-450) [facility] MPV 8.4 fL (7.1-10.7) [facility] ID Date Data Source [id number] 04/11/2020 02:17:21 PM EST [facility] Name Value Range Interpretation Code Description Data Kathi rce(s) Supporting Document(s) EKG [facility] PGNYVa1rQcOTSdEmo4OtNaArKLZtNC4dwna8P0I1cBAnT8PuqCBmb0laK5CuZ8MrBPWzBVKPHN6IpTVn jb2 [file] bUSTOlDNZmTcrwpttl2lmrZnzyMGyX7jK3uQHowHZ7oFtV89vohqaP2JqjjnZv4lStwHJ/nD68ckX/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 tl/ZQLlqJYOpt2iYEgTRcqBAflcV2G11qt+QlmSwFJ0U7hG8vIxAEUlmIXwxtD5QQCg5RjJr2WA8tSDa lGvGsRSVDGWusKn/nJfWpiGOJZRgxLHoZ//zX//7P/ 8uY6fdRP1a//7nf/1f9f/45z//zz//539Yl/ha35nYv/haW4Meuu08L9gitcq0+D+s/HsFlfrpr/2HLW oub58bJufsK/nhM0uP9mnP8I4/YA3est4EVZYtXlV8eQTSqOpSlI2czM82q8uhx7eXmFR/4/0rU4zA7x QY8oww92+egf9+4IiN4V/W5Qb6/9m40I2kuVV+fO2r fP7Vdzrhqj0c4k9b90+4rSkK/q/9d+7/2h8k/r0wjF/6zi3AVcH/tawkXRh91isqx+ShpjGSsz9Kz2OQ b9x+ZFf2iBlxR+NyrT4k/Se0ZHpD+yUJaeJ+ga3P84e5/MKgu44MihXDE0zv+855cFnYqphqMV5pd7mO +4mDBtJjKLxw8/fK/GEP29/eoSMo4V2J1vat35ZdN3 5vV/RMytgHfH/9bczGY01QhFX8uBsOk3GKml/2ugoc+NpHoQLW/sbdj0v/9bF9alD5PjUcYuE5reZ9tO 4LCeNQdnv9Zsef7Bx6A+j+0HT9xA8bdDho/4Fc6b+Ksggi3Wsmwc0Ra9vsxxk4moYIm6/4Fr//4O21u/ 3j0Z6oWWNZRWvbor1EWwF/ekCUFthysrp8Bp8tkv7B xPaqiWkGoirnXYxErY8rtRzyCVoq/Z10YZ+3bvCO/S7dqAMXgAS36VkarrH40tjGcqZn/qNCRozSD1Nm CreIMAReESjM/0Uox4MKUmM/zVT+pveL6Br7kptkMU1k4Y/5q5mV7SEfYIaEqq/0gC3qOejQ4ftnU5+O 5XvSl7ky23rOhi/pPSs6EX8nFkhxW/CvmfWfoX5XdB /dEZaU6ViB1ZJusn1ESbCE3PeMvYVvkr7BCCHPU9Ql7EN7AN/+Fnf5C9SUI52mNZbAFm4y/fv7fZW++1 7L9mX97ui58VynqMN6atFy4lYV2x44I6D5uPxAbBORtQikfrIoVI+dwmnNyy9VFK9vpnISu7g9CZ1P4+ Dj+KK4bxJMc+u/gOpw6iZ3Pl4StfLhLPkilTYncgJ0 IpaWisJKe9pbuK4NT4kqEEuK9ygdZrhJ9AjOEY6ExQfYsZXr17XwO3a0EO6YISPfOjCWU+1PPeCil4Xp GxW4U6aoiVQrPmmvqi+WCmPsSMzmhZCgiixC7hwdy22/32KtdVs2j6UJkbxvdhC41izT66LcXitWxhLv y635d+IVnnUnXkGeO/JKvXFFJ4xQYkwKhdQcESpihS rF4jK50h+giFJ2kSQZjVL/xMOU6vc/82M4UQ9hP6atUoCWuG6Hlbk9E8Rzwc/xu2CIkyG2MMIVlKp+5I Yf0clRyZiRu9brtw/SI2qdG6t6+82w/26l46KTPC/hnfibG/91HpbRIsQ7RmB/eHfgmRAewjEhPRB+iX [place]/cjeCXi+C4D8yKTY+CSCNkAXhFDOvUr/l08bK4O 7gjpZvBG/FSP2dE3CuwZRdLdG73En+Rf8uD6PP5Slso/cwWv/437d2P/fV9787Ey0njMGwAeXhAtl/Chelly [file] thI2u7NEVxGTazXB2reePcURPbNpwqHr3xqPW9XYObWftOFd8Vf6StvqG6iaCuRzJtEOh7CzMzON8T ID Date Data Source [id number] 04/11/2020 09:13:00 AM EST [facility] Name Value Range Interpretation Code Description Data Kathi rce(s) Supporting Document(s) Magnesium Level 2.2 [facility] ([facility]) ID Date Data Source [id number] 04/11/2020 09:13:00 AM EST [facility] Name Value Range Interpretation Code Description Data Kathi rce(s) Supporting Document(s) Sodium 138 [facility] Calcium [Mass/volume] in Serum or Plasma 9.2 [facility] ([facility]) Chloride [Moles/volume] in Serum or Plasma 106 [facility] ([facility]) Carbon dioxide, total [Moles/volume] in Serum or Plasma 25 [facility] ([facility]) Blood Urea Nitrogen 15 5-21 [facility] ([facility]) Potassium [Moles/volume] in Serum or Plasma 4.1 [facility] ([facility]) Glucose 94 70-100 [facility] Creatinine 0.68 0.6-1.5 [facility] ([facility]) Glomerular filtration rate/1.73 sq M.pre dicted [Volume Rate/Area] in Serum or Plasma by Creatinine-based formula (MDRD) 60.0 [facility] ([facility]) ID Date Data Source [id number] 04/11/2020 09:13:00 AM EST [facility] ([facility] Name Value Range Interpretation Code Description Data Kathi rce(s) Supporting Document(s) Alkaline phosphatase [Enzymatic activity/volume] in Serum or Plasma 1 04 [facility] ([facility]) Aspartate aminotransferase [Enzymatic activity/volume] in Serum or Plasma 49 [facility] ([facility]) Bilirubin.total [Mass/volume] in Serum or Plasma 0.7 [facility] ([facility]) Alanine aminotransferase [Enzymatic activity/volume] in Serum or Pl asma 76 [facility] ([facility]) Bilirubin.direct [Mass/volume] in Serum or Plasma 0.3 [facility] ([facility]) Protein [Mass/volume] in Serum or Plasma 6.0 [facility] ([facility]) Albumin [Mass/volume] in Serum or Plasma 3.4 [facility] ([facility]) Cholesterol [Mass/volume] in Serum or Plasma Laboratory test result [facility] ([facility]) ID Date Data Source [id number] 04/11/2020 09:13:00 AM EST [facility] ([facility]) Name Value Range Interpretation Code Description Data Kathi rce(s) Supporting Document(s) White Blood Count 10.1 4.3-10.9 [facility] ([facility]) Platelets 279 130-400 [facility] Red Blood Count 5.54 4.70-6.20 [facility] ([facility]) Hematocrit 51.3 39.0-50.0 [facility] ([facility]) Hemoglobin 17.7 13.0-17.0 [facility] ([facility]) ID Date Data Source [id number] 04/10/2020 01:21:00 PM EST [facility] Name Value Range Interpretation Code Description Data Kathi rce(s) Supporting Document(s) SARS coronavirus 2 RNA [Presence] in Res piratory specimen by RISHABH with probe detection [facility] This lab was ordered by [facility] a nd reported by [facility]. ID Date Data Source [id number] 04/10/2020 12:55:00 PM EST [facility] ([facility]) Name Value Range Interpretation Code Description Data Kathi rce(s) Supporting Document(s) White Blood Count 5.9 10 4.0-10.0 Normal (applies to non-numeri c results) [facility] ([facility]) Red Blood Count 5.60 10 4.00-5.40 Above high normal [facility] ([facility]) Hematocrit 53.3 % 36.0-47.0 Above high normal [facility] Hemoglobin 17.4 g/dL 12.0-15.5 Above high normal [facility] ([facility]) Mean Corpuscular HGB Conc 32.6 g/dL 32.0-36.5 Normal (applies to non-numeric results) [facility] Mean Corpuscular Hemoglobin 31.1 pg 27.0-33.0 Norm al (applies to non-numeric results) [facility] ([facility]) Mean Corpuscular Volume 95.2 fl 80.0-96.0 Normal ( applies to non-numeric results) [facility] ([facility]) Red Cell Distribution Width 12.2 % 11.5-14.5 Norm al (applies to non-numeric results) [facility] ([facility]) Platelet Count, Automated 263 10 150-450 Normal (applies to non-numeric results) [facility] ([facility]) Nucleated Red Blood Cell % 0.0 % 0-0 Normal (applies to n on-numeric results) [facility] ([facility]) ID Date Data Source [id number] 04/10/2020 12:55:00 PM EST [facility] ([facility]) Name Value Range Interpretation Code Description Data Kathi rce(s) Supporting Document(s) Glucose, Fasting 84 mg/dL 70-100 Normal (applies to non-numeric results) [facility] Blood Urea Nitrogen 17 mg/dL 7-18 Normal (applies to non-nume kelly results) [facility] ([facility]) Creatinine For GFR 0.69 mg/dL 0.55-1.30 Normal (applies to non -numeric results) [facility] ([facility]) Sodium Level 141 meq/L 136-145 Normal (applies to non-numeric res ults) [facility] ([facility]) Glomerular Filtration Rate Laboratory test result Normal (applies to non- numeric results) [facility] ([facility]) <content>Units are mL/min/1.73 m2</content>
<content></content>
<content>Chronic Kidney Disease Staging per NKF:</content>
<content></content>
<content>Stage I & II GFR >=60 Normal to Mildly Decreased</content>
<content>Stage III GFR 30- 59 Moderately Decreased</content>
<content>Stage IV GFR 15-29 Severely Decreased</content>
<content>Stage V GFR <15 Very Little GFR Left</content>
<content>ESRD GFR <15 on MODULAR HOME CREW MEMBER</content>
<content></content> Chloride Level 107 meq/L 98-107 Normal (applies to non-numeric r esults) [facility] ([facility]) Potassium Serum 4.0 meq/L 3.5-5.1 Normal (applies to non-numeric results) [facility] ([facility]) Carbon Dioxide Level 27 meq/L 21-32 Normal (applies to non-num pop results) [facility] ([facility]) Calcium Level 8.6 mg/dL 8.8-10.2 Below low normal [facility] ([facility]) Ast/Sgot 40 U/L 7-37 Above high normal [facility] ([facility]) Anion Gap 7 meq/L 8-16 Below low normal [facility] ( [facility]) Alkaline Phosphatase 95 U/L 45-117 Normal (applies to non-num pop results) [facility] Alt/SGPT 69 U/L 12-78 Normal (applies to non-numeric resul ts) [facility] ([facility]) Bilirubin,Total 0.5 mg/dL 0.2-1.0 Normal (applies to non-numeric results) [facility] Total Protein 5.7 GM/DL 6.4-8.2 Below low normal [facility] ([facility]) Albumin 3.4 GM/DL 3.2-5.2 Normal (applies to non-numeric resul ts) [facility] ([facility]) Albumin/Globulin Ratio 1.5 1.2-2.2 Normal (applies to non-n umeric results) [facility] ([facility]) ID Date Data Source [id number] 04/10/2020 12:55:00 PM EST [facility] ([facility]) Name Value Range Interpretation Code Description Data Kathi rce(s) Supporting Document(s) CPK Creatine Phosphokinase 47 U/L 26-192 Queenie l (applies to non-numeric results) [facility] ([facility]) CK-MB Value Mass 1.2 ng/mL Normal (applies to non-numeric results) [facility] ([facility]) Troponin I Laboratory test result Normal (applies to non-n umeric results) [facility]) <content>Troponin I Reference Interval f or [employer] [place] LOCI:</content>
<content></content>
<content>99th Percentile= 0.00-0.045 ng/ml</content>
<content></content>
<content>Risk Stratification:</content>
<content><= 0.10 ng/ml Decreased Risk for Adverse Clinical</content>
<content>Events.</content>
<content>0.10-1.50 ng/ml Increased Risk for Adverse Clinical</content>
<content>Events. Evaluation of additional</content>
<content>criterion and/or repeat testing in 2-6</content>
<content>hours is suggested to rule out myocardial</content>
<content>damage.</content>
<content>>= 1.50 ng/ml Indicative of Myocardial Injury.</content>
<content></content> MB/CK Relative Index 2.55 Normal (applies to non-num pop results) [facility]) <content>DIAGNOSIS CRITERIA</content>
<content>MMB ng/ml Relative Index (RI)</content>
<content>NON-AMI < or = 5 N/A</content>
<content>NGUYEN ZONE > 5 < or = 4</content>
<content>AMI > 5 > 4</content>
<content></content> ID Date Data Source [id number] 04/10/2020 08:45:00 AM EST [facility] ([facility]) Name Value Range Interpretation Code Description Data Kathi rce(s) Supporting Document(s) Laboratory test finding (navigational concept) 1.3 Normal (applies to non- numeric results) [facility] ([facility]) Laboratory test finding (navigational concept) 15.8 s 1 2.1-14.4 Above high normal [facility] ([facility]) ID Date Data Source [id number] 04/10/2020 08:34:00 AM EST [facility] ([facility]) Name Value Range Interpretation Code Description Data Kathi rce(s) Supporting Document(s) Laboratory test finding (navigational concept) 0.00 ng/mL 0 .00-0.08 Normal (applies to non-numeric results) [facility] ([facility]) ID Date Data Source [id number] 04/10/2020 08:33:00 AM EST [facility] ([facility]) Name Value Range Interpretation Code Description Data Kathi rce(s) Supporting Document(s) Laboratory test finding (navigational concept) 50.0 % 3 8.0-51.0 Normal (applies to non-numeric results) [facility] ([facility]) Laboratory test finding (navigational concept) 4.1 meq/L 3 .5-5.1 Normal (applies to non-numeric results) [facility] ([facility]) Laboratory test finding (navigational concept) 140 meq/L 1 36-145 Normal (applies to non-numeric results) [facility] ([facility]) Laboratory test finding (navigational concept) 132 mg/dL 7 0-105 Above high normal [facility] ([facility]) Laboratory test finding (navigational concept) 4.7 mg/dL 4 .5-5.3 Normal (applies to non-numeric results) [facility] ([facility]) Laboratory test finding (navigational concept) 101 meq/L 9 8-109 Normal (applies to non-numeric results) [facility] ([facility]) Laboratory test finding (navigational concept) 29.0 MM/L 2 3.0-27.0 Above high normal [facility] ([facility]) Laboratory test finding (navigational concept) 0.8 mg/dL 0 .6-1.3 Normal (applies to non-numeric results) [facility] ([facility]) Laboratory test finding (navigational concept) 20 mg/dL 8 -26 Normal (applies to non-numeric results) [facility] ([facility]) ID Date Data Source [id number] 04/10/2020 08:30:00 AM EST [facility] ([facility] Name Value Range Interpretation Code Description Data Kathi rce(s) Supporting Document(s) Hemoglobin 17.4 g/dL 12.0-15.5 Above high normal [facility] ([facility]) Red Blood Count 5.60 10 4.00-5.40 Above high normal [facility] ([facility]) White Blood Count 5.9 10 4.0-10.0 Normal (applies to non-numeri c results) [facility] ([facility]) Hematocrit 53.3 % 36.0-47.0 Above high normal [facility] ([facility]) Mean Corpuscular Volume 95.2 fl 80.0-96.0 Normal ( applies to non-numeric results) [facility] ([facility]) Mean Corpuscular Hemoglobin 31.1 pg 27.0-33.0 Norm al (applies to non-numeric results) [facility] Red Cell Distribution Width 12.2 % 11.5-14.5 Norm al (applies to non-numeric results) [facility] [facility] ([facility]) Platelet Count, Automated 263 10 150-450 Normal (applies to non-numeric results) [facility] ([facility]) Mean Corpuscular HGB Conc 32.6 g/dL 32.0-36.5 Normal (applies to non-numeric results) [facility]) Nucleated Red Blood Cell % 0.0 % 0-0 Normal (applies to n on-numeric results) [facility] ([facility]) ID Date Data Source [id number] 04/10/2020 08:30:00 AM EST [facility] ([facility]) Name Value Range Interpretation Code Description Data Kathi rce(s) Supporting Document(s) Thyrotropin [Units/volume] in Serum or Plasma 2.030 uIU/ML 0. 358-3.740 Normal (applies to non-numeric results) [facility] ([facility]) ID Date Data Source [id number] 04/07/2020 11:45:00 AM EST [facility] ([facility]) Name Value Range Interpretation Code Description Data Kathi rce(s) Supporting Document(s) EKG Laboratory test result [facility] ([facility]) ID Date Data Source [id number] 04/03/2020 10:53:00 AM EST [facility] ([facility]) Name Value Range Interpretation Code Description Data Kathi rce(s) Supporting Document(s) Magnesium Level 2 [facility] ([facility]) ID Date Data Source [id number] 04/03/2020 10:53:00 AM EST [facility] ([facility]) Name Value Range Interpretation Code Description Data Kathi rce(s) Supporting Document(s) Alanine aminotransferase [Enzymatic activity/volume] in Serum or Pl asma 61 [facility] ([facility]) Calcium [Mass/volume] in Serum or Plasma 8.6 [facility] ([facility]) Albumin [Mass/volume] in Serum or Plasma 3.3 [facility] ([facility]) Carbon dioxide, total [Moles/volume] in Serum or Plasma 27 [facility] ([facility]) Alkaline phosphatase [Enzymatic activity/volume] in Serum or Plasma 9 7 [facility] ([facility]) Potassium [Moles/volume] in Serum or Plasma 4.4 [facility] ([facility]) Chloride [Moles/volume] in Serum or Plasma 104 [facility] ([facility]) Protein [Mass/volume] in Serum or Plasma 5.8 [facility] ([facility]) Sodium 139 [facility] ([facility]) Urea nitrogen [Mass/volume] in Serum or Plasma 26 [facility] ([facility]) Aspartate aminotransferase [Enzymatic activity/volume] in Serum or Plasma 30 [facility] ([facility]) Glucose 86 70-100 [facility] ([facility] Creatinine For GFR 0.81 [facility] ([facility]) ID Date Data Source [id number] 04/03/2020 10:53:00 AM EST [facility] ([facility]) Name Value Range Interpretation Code Description Data Kathi rce(s) Supporting Document(s) White Blood Count 7.7 4.3-10.9 [facility] ([facility]) Red Blood Count 5.34 4.70-6.20 [facility] ([facility]) Platelets 268 130-400 [facility] Hemoglobin 17.1 13.0-17.0 [facility] ([facility]) Hematocrit 50.9 39.0-50.0 [facility] ([facility]) ID Date Data Source [id number] 04/02/2020 04:00:00 AM EST [facility] Name Value Range Interpretation Code Description Data Kathi rce(s) Supporting Document(s) SARS coronavirus 2 RNA [Presence] in Res piratory specimen by RISHABH with probe detection [facility] This lab was ordered by [facility] a nd reported by [facility]. ID Date Data Source [id number] 03/30/2020 06:13:00 PM EST [facility] ([facility]) Name Value Range Interpretation Code Description Data Kathi rce(s) Supporting Document(s) Thyrotropin [Units/volume] in Serum or Plasma 2.050 uIU/ML 0. 358-3.740 Normal (applies to non-numeric results) [facility] ([facility]) Thyroxine (T4) free [Mass/volume] in Serum or Plasma 1.30 ng/dL 0.76-1.46 Normal (applies to non-numeric results) [facility] ([facility]) Digoxin [Mass/volume] in Serum or Plasma 0.1 ng/mL 0.5-2.0 Below low normal [facility] ([facility]) ID Date Data Source [id number] 03/30/2020 06:13:00 PM EST [facility] ([facility]) Name Value Range Interpretation Code Description Data Kathi rce(s) Supporting Document(s) Glucose, Fasting 80 mg/dL 70-100 Normal (applies to non-numeric results) [facility] ([facility]) Blood Urea Nitrogen 22 mg/dL 7-18 Above high normal [facility] ([facility]) Creatinine For GFR 0.84 mg/dL 0.55-1.30 Normal (applies to non -numeric results) [facility] ([facility]) Glomerular Filtration Rate Laboratory test result Normal (applies to non- numeric results) [facility] ([facility]) <content>Units are mL/min/1.73 m2</content>
<content></content>
<content>Chronic Kidney Disease Staging per NKF:</content>
<content></content>
<content>Stage I & II GFR >=60 Normal to Mildly Decreased</content>
<content>Stage III GFR 30- 59 Moderately Decreased</content>
<content>Stage IV GFR 15-29 Severely Decreased</content>
<content>Stage V GFR <15 Very Little GFR Left</content>
<content>ESRD GFR <15 on MODULAR HOME CREW MEMBER</content>
<content></content> Sodium Level 141 meq/L 136-145 Normal (applies to non-numeric res ults) [facility] ([facility]) Chloride Level 108 meq/L 98-107 Above high normal [facility] ([facility]) Potassium Serum 4.1 meq/L 3.5-5.1 Normal (applies to non-numeric results) [facility] ([facility]) Anion Gap 4 meq/L 8-16 Below low normal [facility] ( [facility]) Carbon Dioxide Level 29 meq/L 21-32 Normal (applies to non-num pop results) [facility] ([facility]) Calcium Level 8.7 mg/dL 8.8-10.2 Below low normal [facility] ([facility]) ID Date Data Source [id number] 03/30/2020 06:13:00 PM EST [facility] ([facility]) Name Value Range Interpretation Code Description Data Kathi rce(s) Supporting Document(s) Ast/Sgot 63 U/L 7-37 Above high normal [facility] ([facility]) Bilirubin,Total 0.6 mg/dL 0.2-1.0 Normal (applies to non-numeric results) [facility] ([facility]) Alt/SGPT 100 U/L 12-78 Above high normal [facility] ([facility]) Alkaline Phosphatase 103 U/L 45-117 Normal (applies to non-num pop results) [facility] ([facility]) Bilirubin,Direct 0.2 mg/dL 0.0-0.2 Normal (applies to non-numeric results) [facility] ([facility]) Total Protein 6.1 GM/DL 6.4-8.2 Below low normal [facility] ([facility]) Albumin/Globulin Ratio 1.4 1.2-2.2 Normal (applies to non-n umeric results) [facility] ([facility]) Albumin 3.6 GM/DL 3.2-5.2 Normal (applies to non-numeric resul ts) [facility] ([facility]) ID Date Data Source [id number] 03/30/2020 06:13:00 PM EST [facility] ([facility]) Name Value Range Interpretation Code Description Data Kathi rce(s) Supporting Document(s) CK-MB Value Mass 3.0 ng/mL Normal (applies to non-numeric results) [facility] ([facility]) CPK Creatine Phosphokinase 82 U/L 26-192 Queenie l (applies to non-numeric results) [facility] ([facility]) Troponin I Laboratory test result Normal (applies to non-n umeric results) [facility] ([facility]) <content>Troponin I Reference Interval f or Siemens [place] LOCI:</content>
<content></content>
<content>99th Percentile= 0.00-0.045 ng/ml</content>
<content></content>
<content>Risk Stratification:</content>
<content><= 0.10 ng/ml Decreased Risk for Adverse Clinical</content>
<content>Events.</content>
<content>0.10-1.50 ng/ml Increased Risk for Adverse Clinical</content>
<content>Events. Evaluation of additional</content>
<content>criterion and/or repeat testing in 2-6</content>
<content>hours is suggested to rule out myocardial</content>
<content>damage.</content>
<content>>= 1.50 ng/ml Indicative of Myocardial Injury.</content>
<content></content> MB/CK Relative Index 3.66 Normal (applies to non-num pop results) [facility] ([facility]) <content>DIAGNOSIS CRITERIA</content>
<content>MMB ng/ml Relative Index (RI)</content>
<content>NON-AMI < or = 5 N/A</content>
<content>NGUYEN ZONE > 5 < or = 4</content>
<content>AMI > 5 > 4</content>
<content></content> ID Date Data Source [id number] 03/30/2020 06:13:00 PM EST [facility] ([facility]) Name Value Range Interpretation Code Description Data Kathi rce(s) Supporting Document(s) aPTT in Platelet poor plasma by Coagulation assay 30.0 s 24.2-38.5 Normal (applies to non-numeric results) [facility] ([facility]) ID Date Data Source [id number] 03/30/2020 06:13:00 PM EST [facility] ([facility]) Name Value Range Interpretation Code Description Data Kathi rce(s) Supporting Document(s) Prothrombin Time 14.3 s 12.5-14.3 Above high normal [facility]) Inr 1.09 Normal (applies to non-numeric resul ts) [facility] ([facility]) THERAPUTIC HUMAN INR VALUES INDICATIONS NORMAL RANGES PROPHYLAXIS/TREATMENT OF: VENOUS THROMBOSIS 2.0-3.0 PULMONARY EMBOLISM 2.0-3.0 PREVENTION OF SYSTEMIC EMBOLISM FROM: TISSUE HEART VALVES 2.0-3.0 ACUTE MYOCARDIAL INFARCTION 2.0-3.0 VALVULAR HEART DISEASE 2.0-3.0 ATRIAL FIBRILLATION 2.0-3.0 MECHANICAL VALVES(HIGH RISK) 2.5-3.5 RECURRENT MYOCARDIAL INFARCTION 2.5-3.5 ID Date Data Source [id number] 03/30/2020 06:13:00 PM EST [facility] ([facility]) Name Value Range Interpretation Code Description Data Kathi rce(s) Supporting Document(s) Red Blood Count 5.01 10 4.00-5.40 Normal (applies to non-numeric results) [facility] ([facility]) White Blood Count 10.1 10 4.0-10.0 Above high normal [facility] ([facility]) Hematocrit 48.1 % 36.0-47.0 Above high normal [facility] ([facility]) Mean Corpuscular Volume 96.0 fl 80.0-96.0 Normal ( applies to non-numeric results) [facility] ([facility]) Hemoglobin 16.3 g/dL 12.0-15.5 Above high normal [facility] ([facility]) Mean Corpuscular HGB Conc 33.9 g/dL 32.0-36.5 Normal (applies to non-numeric results) [facility] ([facility]) Mean Corpuscular Hemoglobin 32.5 pg 27.0-33.0 Norm al (applies to non-numeric results) [facility] ([facility]) Red Cell Distribution Width 12.6 % 11.5-14.5 Norm al (applies to non-numeric results) [facility] ([facility]) Lymph % 16.2 % 24.0-44.0 Below low normal [facility] ( [facility]) Neutrophils % 74.0 % 36.0-66.0 Above high normal [facility] ([facility]) Platelet Count, Automated 259 10 150-450 Normal (applies to non-numeric results) [facility] ([facility]) Eos % 0.1 % 0.0-3.0 Normal (applies to non-numeric resul ts) [facility] ([facility]) [place] % 9.0 % 0.0-5.0 Above high normal [facility] ([facility]) Immature Granulocyte % 0.3 % 0-3.0 Normal (applies to non-n umeric results) [facility] ([facility]) Baso % 0.4 % 0.0-1.0 Normal (applies to non-numeric resul ts) [facility] ([facility]) Nucleated Red Blood Cell % 0.0 % 0-0 Normal (applies to n on-numeric results) [facility] ([facility]) Neutrophils # 7.5 10 1.5-8.5 Normal (applies to non-numeric re sults) [facility] ([facility]) [place] # 0.9 10 0.0-0.8 Above high normal [facility] ([facility]) Lymph # 1.6 10 1.5-5.0 Normal (applies to non-numeric resul ts) [facility] ([facility]) Eos # 0.0 10 0.0-0.5 Normal (applies to non-numeric resul ts) [facility] ([facility]) Baso # 0.0 10 0.0-0.2 Normal (applies to non-numeric resul ts) [facility] ([facility]) ID Date Data Source [id number] 03/30/2020 06:11:00 PM EST [facility] ([facility] Name Value Range Interpretation Code Description Data Kathi rce(s) Supporting Document(s) Ethanol [Mass/volume] in Serum or Plasma 0.003 % 0.000-0 .010 Normal (applies to non-numeric results) [facility] ([facility]) Magnesium [Mass/volume] in Serum or Plasma 2.3 mg/dL 1.8-2 .4 Normal (applies to non-numeric results) [facility] ([facility]) ID Date Data Source [id number] 10/18/2019 11:04:00 AM EDT [facility] ([facility]) Name Value Range Interpretation Code Description Data Kathi rce(s) Supporting Document(s) Alanine aminotransferase [Enzymatic activity/volume] in Serum or Pl asma 66 [facility] ([facility]) Albumin [Mass/volume] in Serum or Plasma 3.7 [facility] ([facility]) Carbon dioxide, total [Moles/volume] in Serum or Plasma 27 [facility] ([facility]) Chloride [Moles/volume] in Serum or Plasma 109 [facility] ([facility]) Calcium [Mass/volume] in Serum or Plasma 8.9 [facility] ([facility]) Alkaline phosphatase [Enzymatic activity/volume] in Serum or Plasma 8 1 [facility] ([facility]) Aspartate aminotransferase [Enzymatic activity/volume] in Serum or Plasma 33 [facility] ([facility]) Sodium 143 [facility] ([facility] Protein [Mass/volume] in Serum or Plasma 6.4 [facility] ([facility]) Potassium [Moles/volume] in Serum or Plasma 4.4 [facility] ([facility]) Creatinine For GFR 0.76 [facility] ([facility]) Urea nitrogen [Mass/volume] in Serum or Plasma 14 [facility] ([facility]) Glucose 90 70-100 [facility] ([facility] ID Date Data Source [id number] 10/18/2019 11:04:00 AM EDT [facility] ([facility]) Name Value Range Interpretation Code Description Data Kathi rce(s) Supporting Document(s) White Blood Count 5.5 4.0-10.0 [facility] ([facility]) Hematocrit 44.0 [facility] ([facility]) Hemoglobin 14.6 [facility] ([facility]) Platelets 245 150-450 [facility] ([facility] Red Blood Count 4.72 4.00-5.40 [facility] ([facility]) ID Date Data Source [id number] 08/30/2019 10:18:00 AM EDT [facility] ([facility]) Name Value Range Interpretation Code Description Data Kathi rce(s) Supporting Document(s) Tibc % Saturation 52.4 [facility] ([facility]) Iron binding capacity [Mass/volume] in Serum or Plasma 292 [facility] ([facility]) Iron 153 50-170 [facility] ([facility] ID Date Data Source [id number] 07/29/2019 10:16:00 AM EDT [facility] ([facility]) Name Value Range Interpretation Code Description Data Akthi rce(s) Supporting Document(s) Tibc % Saturation 40.3 [facility] ([facility]) Iron 129 50-170 [facility] ([facility] Iron binding capacity [Mass/volume] in Serum or Plasma 320 [facility] ([facility]) ID Date Data Source [id number] 07/29/2019 10:16:00 AM EDT [facility] ([facility]) Name Value Range Interpretation Code Description Data Kathi rce(s) Supporting Document(s) White Blood Count 8.8 4.0-10.0 [facility] ([facility]) Platelets 260 150-450 [facility] ([facility] Red Blood Count 4.81 4.0-5.40 [facility] ([facility]) Hematocrit 44.8 [facility] ([facility]) Hemoglobin 15.6 [facility] ([facility]) ID Date Data Source [id number] 07/02/2019 10:08:00 AM EDT [facility] Name Value Range Interpretation Code Description Data Kathi rce(s) Supporting Document(s) Red Blood Count 4.92 4.00-5.40 [facility] ([facility]) White Blood Count 6.4 4.0-10.0 [facility] ([facility]) Hematocrit 46.3 [facility] ([facility]) Platelets 297 150-450 [facility] ([facility] Hemoglobin 15.5 [facility] ([facility]) ID Date Data Source [id number] 07/02/2019 10:08:00 AM EDT [facility] Name Value Range Interpretation Code Description Data Kathi rce(s) Supporting Document(s) Albumin [Mass/volume] in Serum or Plasma 3.8 [facility] ([facility]) Calcium [Mass/volume] in Serum or Plasma 9.3 [facility] ([facility]) Chloride [Moles/volume] in Serum or Plasma 107 [facility] ([facility]) Carbon dioxide, total [Moles/volume] in Serum or Plasma 32 [facility] ([facility]) Alanine aminotransferase [Enzymatic activity/volume] in Serum or Pl asma 90 [facility] ([facility]) Potassium [Moles/volume] in Serum or Plasma 4.2 [facility] ([facility]) Protein [Mass/volume] in Serum or Plasma 6.8 [facility] ([facility]) Alkaline phosphatase [Enzymatic activity/volume] in Serum or Plasma 9 0 [facility] ([facility]) Urea nitrogen [Mass/volume] in Serum or Plasma 19 [facility] ([facility]) Sodium 142 [facility] Glucose 79 70-100 [facility] ([facility]) Aspartate aminotransferase [Enzymatic activity/volume] in Serum or Plasma 41 [facility] ([facility]) Creatinine For GFR 0.86 [facility] ([facility]) Procedure Social History Code Duration Value Status Description Data Source(s ) Smoking 04/19/2020 12:00:00 AM EST Patient is a former smoker completed Patient is a former smoker [facility] Alcohol intake 04/13/2020 12:00:00 AM EST Not Currently completed [facility] Smoking 04/13/2020 12:00:00 AM EST Former smoker completed Former smoker [facility] Vital Signs ID Date Data Source UNK Name Value Range Interpretation Code Description Data Source(s) [place] body weight 115 [lb_av] 115 [lb_av] [facility] ([facility]) Oxygen saturation in Arterial blood by Pulse oximetry 98 % 98 % [facility] ([facility]) Body temperature 97.8 [degF] 97.8 [degF] [facility] ([facility]) Respiratory rate 18 /min 18 /min [facility] ( [facility]) Heart rate 57 /min 57 /min [facility] ([facility]) Body mass index (BMI) [Ratio] 23.1 kg/m2 23.1 k g/m2 [facility] ([facility]) Body weight 130.38 [lb_av] 130.38 [lb_av] [facility] ([facility]) Body height 63 [in_i] 63 [in_i] [facility] ([facility] 5'3" Diastolic blood pressure 84 mm[Hg] 84 mm[Hg] [facility] ([facility]) Systolic blood pressure 148 mm[Hg] 148 mm[Hg] M [facility] ([facility]) Diastolic blood pressure--sitting 86 mm[Hg] 86 mm[Hg] [facility] ([facility]) CBP, adult cuff/LA Systolic blood pressure--sitting 164 mm[Hg] 164 mm[Hg] [facility] ([facility]) CBP, adult cuff/LA Heart rate 51 /min 51 /min [facility] ([facility]) Body mass index (BMI) [Ratio] 23.0 kg/m2 23.0 k g/m2 [facility] ([facility]) Body height 63 [in_i] 63 [in_i] [facility] ([facility]) 5'3" Body weight 130.00 [lb_av] 130.00 [lb_av] [facility] ([facility]) Oxygen saturation in Arterial blood by Pulse oximetry 97 % 97 % [facility] Respiratory rate 16 /min 16 /min [facility] Body temperature 36.67 Haley 36.67 Haley [facility] Heart rate 62 /min 62 /min [facility] Diastolic blood pressure 88 mm[Hg] 88 mm[Hg] [facility] Systolic blood pressure 150 mm[Hg] 150 mm[Hg] [facility] Body mass index (BMI) [Ratio] 23.03 kg/m2 23.03 kg/m2 [facility] Body weight 58.968 kg 58.968 kg [facility] Body height 160 cm 160 cm [facility] [facility] Sy[facility] blood pressure 124 mm[Hg] 124 mm[Hg] M SHELLEY ([facility]) [place] body weight 115 [lb_av] 115 [lb_av] MEDEN T ([facility]) Oxygen saturation in Arterial blood by Pulse oximetry 98 % 98 % [facility] ([facility]) Body temperature 98.1 [degF] 98.1 [degF] [facility] ([facility]) Respiratory rate 18 /min 18 /min [facility] ( [facility]) Heart rate 63 /min 63 /min [facility] ([facility]) Body mass index (BMI) [Ratio] 23.4 kg/m2 23.4 k g/m2 [facility] ([facility]) Body weight 132.25 [lb_av] 132.25 [lb_av] MED[facility] T ([facility]) Body height 63 [in_i] 63 [in_i] [facility] ([facility]) 5'3" Diastolic blood pressure 74 mm[Hg] 74 mm[Hg] [facility] ([facility]) Diastolic blood pressure--sitting 78 mm[Hg] 78 mm[Hg] [facility] ([facility]) Systolic blood pressure--sitting 130 mm[Hg] 130 mm[Hg] [facility] ([facility]) Heart rate 67 /min 67 /min [facility] ([facility] Body mass index (BMI) [Ratio] 24.3 kg/m2 24.3 k g/m2 [facility] ([facility]) Body height 63 [in_i] 63 [in_i] [facility] ([facility] 5'3" Body weight 137.00 [lb_av] 137.00 [lb_av] MED[facility] T ([facility]) [place] body weight 115 [lb_av] 115 [lb_av] [facility] T ([facility]) Oxygen saturation in Arterial blood by Pulse oximetry 98 % 98 % [facility] ([facility]) Body temperature 98.8 [degF] 98.8 [degF] [facility] ([facility]) Respiratory rate 18 /min 18 /min [facility] ( [facility]) Heart rate 77 /min 77 /min [facility] ([facility]) Body mass index (BMI) [Ratio] 24.7 kg/m2 24.7 k g/m2 [facility] ([facility]) Body weight 139.50 [lb_av] 139.50 [lb_av] [facility] T ([facility]) Body height 63 [in_i] 63 [in_i] [facility] ([facility]) 5'3" Diastolic blood pressure 74 mm[Hg] 74 mm[Hg] [facility] ([facility]) Systolic blood pressure 128 mm[Hg] 128 mm[Hg] M EDENT ([facility]) [place] body weight 115 [lb_av] 115 [lb_av] MED[facility] T ([facility]) Oxygen saturation in Arterial blood by Pulse oximetry 99 % 99 % [facility] ([facility]) Body temperature 98.1 [degF] 98.1 [degF] [facility] ([facility]) Respiratory rate 18 /min 18 /min [facility] ( [facility]) Heart rate 70 /min 70 /min [facility] ([facility]) Body mass index (BMI) [Ratio] 24.4 kg/m2 24.4 k g/m2 [facility] ([facility]) Body weight 137.50 [lb_av] 137.50 [lb_av] [facility] T ([facility]) Body height 63 [in_i] 63 [in_i] [facility] ([facility]) 5'3" Diastolic blood pressure 78 mm[Hg] 78 mm[Hg] [facility] ([facility]) Systolic blood pressure 132 mm[Hg] 132 mm[Hg] M [facility] ([facility]) Oxygen saturation in Arterial blood by Pulse oximetry 100 % 100 % [facility] ([facility]) Body temperature 97.9 [degF] 97.9 [degF] [facility] ([facility]) Respiratory rate 18 /min 18 /min [facility] ( [facility]) Heart rate 53 /min 53 /min [facility] ([facility]) Body mass index (BMI) [Ratio] 24.2 kg/m2 24.2 k g/m2 [facility] ([facility]) Body weight 136.38 [lb_av] 136.38 [lb_av] MED[facility] T ([facility]) Body height 63 [in_i] 63 [in_i] [facility] ([facility]) 5'3" Diastolic blood pressure 80 mm[Hg] 80 mm[Hg] [facility] ([facility]) Systolic blood pressure 136 mm[Hg] 136 mm[Hg] M EDENT ([facility]) Diastolic blood pressure--sitting 68 mm[Hg] 68 mm[Hg] [facility] ([facility]) adult cuff, Ra Systolic blood pressure--sitting 120 mm[Hg] 120 mm[Hg] [facility] ([facility]) adult cuff, Ra Heart rate 71 /min 71 /min [facility] ([facility] Body mass index (BMI) [Ratio] 23.7 kg/m2 23.7 k g/m2 [facility] ([facility]) Body height 63 [in_i] 63 [in_i] [facility] ([facility] 5'3" Body weight 134.00 [lb_av] 134.00 [lb_av] MED[facility] T ([facility]) Oxygen saturation in Arterial blood by [facility]ulse oximetry 99 % 99 % [facility] Body temperature 98.1 [degF] 98.1 [degF] [facility] ([facility]) Respiratory rate 18 /min 18 /min [facility] ( [facility]) Heart rate 49 /min 49 /min [facility] ([facility]) Body mass index (BMI) [Ratio] 23.8 kg/m2 23.8 k g/m2 [facility] ([facility]) Body weight 134.25 [lb_av] 134.25 [lb_av] MEDEN T ([facility]) Body height 63 [in_i] 63 [in_i] [facility] ([facility]) 5'3" Diastolic blood pressure 64 mm[Hg] 64 mm[Hg] [facility] ([facility]) Systolic blood pressure 132 mm[Hg] 132 mm[Hg] M EDENT ([facility]) Patient Treatment Plan of Care Planned Activity Planned Date Details Description Data Source (s) Amlodipine 5 MG Oral Tablet 04/14/2020 12:00:00 AM [facility] rivaroxaban 20 MG Oral Tablet 04/13/2020 12:00:00 AM [facility] rivaroxaban 15 MG Oral Tablet [facility] Diltiazem Hydrochloride 30 MG Oral Tablet [facility] Atenolol 25 MG Oral Tablet [facility]
[2020-05-30 19:54] LABS: BASO % 0.3 % (0.0-1.0); EOS # 0.1 10^3/uL (0.0-0.5); EOS % 0.6 % (0.0-3.0); HEMATOCRIT 44.8 % (36.0-47.0); HEMOGLOBIN 15.6 g/dl (12.0-15.5); LYMPH # 2.7 10^3/uL (1.5-5.0); LYMPH % 27.2 % (24.0-44.0); MEAN CORPUSCULAR HEMOGLOBIN 31.1 pg (27.0-33.0); MEAN CORPUSCULAR HGB CONC 34.8 g/dl (32.0-36.5); MEAN CORPUSCULAR VOLUME 89.4 fl (80.0-96.0); MONO % 10.5 % (2.0-8.0); NEUTROPHILS # 5.9 10^3/uL (1.5-8.5); PLATELET COUNT, AUTOMATED 286 10^3/uL (150-450); RED BLOOD COUNT 5.01 10^6/uL (4.00-5.40); WHITE BLOOD COUNT 9.7 10^3/uL (4.0-10.0)
[2020-05-30] MEDS ORDERED: FLEC25TA PO (19:58)
--- OUTSIDE RECORDS SUMMARY | 2020-05-30 20:05 | CCD ---
Author Author [facility] Organization [facility] Address Unknown Phone Unavailable Care Team Providers Care Osha Inspector Name Role Phone ANTECOL, Sabine YOUNG MD [...] Unavailable MARK-DON, DAVE DO Unavailable Unavailable MRAK-DON, DAEV DO Unavailable Unavailable MARK-DON, DAVE DO Unavailable [...] is protected by Article 27-F of the [place] State Public Health law. If you continue you may have access to information: Regarding HIV / AIDS; Provided by facilities licensed or operated by the [facility] Office of Mental Health; or Provided by the [facility] Office for People With Developmental Disabilities. If such information is present, then the following [facility] mandated warning applies: This information has been [...] law may result in a fine or half-way sentence or both. A general authorization for the release of medical or other information is NOT sufficient authorization for further disc losure. Allergies and Adverse Reactions Type Description Substance Reaction Status Data Source(s ) Propensity to adverse reactions SULFA ANTIBIOTICS Sulfa Antibiotics Rash Low Active [facility] Low Propensity to adverse reactions LACTOSE INTOLERANCE (GI) [place] Intolerance (Gi) Active [facility] Propensity to adverse reactions GLUTEN MEAL Wheat gluten extract Active [facility] Propensity to adverse reactions GARLIC allyl sulfide A ctive [facility] Family History Family Member Name Family Member Gender Family Member Status Date o f Status Description Data Source(s) Unknown Male Problem [facility] ([facility]) Unknown Male Problem [facility] ([facility]) at age 38 Encounters Encounter Providers Location Date Indications Data Source(s ) Outpatient Attender: DAVE AMBROSE DO [facility] 04/21/2020 10:00:00 AM EST [facility] Outpatient Attender: HANNAH GALARZA MD Main Office 04/19/2020 11:00:00 AM EST [facility] ([facility]) Inpatient Attender: Ruchi Harris MDAdmitter: Ruchi douglas MD [email or web address] 04/11/2020 02:03:45 PM EST - 04/13/2020 01:50:00 PM EST [facility] Patient discharged. Outpatient Attender: Nico PATIÑO [facility] 04/07/2020 09:40:00 AM EST [facility] ([facility]) Outpatient Attender: Robina PATIÑO Main Office 12/03/2019 02:30:0 0 PM EDT [facility] ([facility]) Outpatient Attender: DAVE AMBROSE [facility] 06/24/2019 10:30:00 AM EDT [facility] ([facility]) Outpatient Attender: DAVE AMBROSE [facility] 06/05/2019 10:00:00 AM EST [facility] ([facility]) Outpatient Attender: DAVE AMBROSE [facility] 05/08/2019 12:20:00 PM EST [facility] ([facility]) Outpatient Attender: Robina PATIÑO Main Office 04/29/2019 12:00:0 0 PM EST [facility] ([facility]) [facility] 12:30:00 PM EST [facility] ([facility]) Medications Medication Brand Name Start Date [...] 05/27/2020 12:00:00 AM EST ORAL active [facility] ([facility]) 50 mg 05/07/2020 12:00:00 AM EST tablet 30 TAKE TWO TABLETS BY MOUTH EVERY DAY NEEDED FOR ATRIAL FIBRILATION TAKE TWO TABLETS BY MOUTH EVERY DAY NEEDED FOR ATRIAL FIBRILATION SOLD: 2020 [facility] Bisoprolol Fumarate 5 MG Oral Tablet Bisoprolol Fumarate 12:00:00 AM EST ORAL active [facility] ([facility]) 5 mg 05/05/2020 12:00:00 AM EST tablet 60 TAKE ONE TABLET BY MOUTH TWICE A DAY FOR RESTING HR>90 BPM TAKE ONE TABLET BY MOUTH TWICE A DAY FOR RESTING HR>90 BPM SOLD: 05/06/2020 [facility] Atenolol 25 MG Oral Tablet Atenolol 05/02/2020 12:00:00 AM EST ORAL completed [facility] ([facility]) Atenolol 25 MG Oral Tablet Atenolol 04/27/2020 12:00:00 AM EST ORAL completed [facility] ([facility]) 80 mg 04/20/2020 12:00:00 AM EST tablet 90 TAKE ONE TABLET BY MOUTH AT BEDTIME TAKE ONE TABLET BY MOUTH AT BEDTIME SOLD: 04/21/2020 [facility] Atenolol 25 MG Oral Tablet ATENOLOL 04/20/2020 12:00:00 AM EST tablet 180 TAKE ONE TABLET BY MOUTH TWICE A DAY TAKE ONE TABLET BY MOUTH TWICE A DAY SOLD: 04/21/2020 [facility] valsartan 80 MG Oral Tablet Valsartan 04/19/2020 12:00:00 AM EST ORAL active [facility] ([facility]) Flecainide Acetate 50 MG Oral Tablet Flecainide Acetate 03/2021 12:00:00 AM EST ORAL active [facility] ([facility]) Atenolol 25 MG Oral Tablet Atenolol 04/19/2020 12:00:00 AM EST ORAL completed [facility] ([facility]) 50 mg 04/15/2020 12:00:00 AM EST tablet 60 TAKE ONE TABLET BY MOUTH TWICE A DAY TAKE ONE TABLET BY MOUTH TWICE A DAY SOLD: 04/15/2020 [facility] Atenolol 50 MG Oral Tablet ATENOLOL [...] AM EST ORAL completed [facility] ([facility]) Atenolol 50 MG Oral Tablet Atenolol 04/14/2020 12:00:00 AM EST ORAL completed [facility] ([facility]) Mirtazapine 15 MG Oral Tablet Mirtazapine 04/14/2020 12:00:00 AM EST completed [facility] ([facility]) rivaroxaban 20 MG Oral Tablet [Xarelto] Xarelto 04/14/2020 12:00:0 0 AM EST ORAL active [facility] ([facility]) Amlodipine 5 MG Oral Tablet amLODIPine (NORVASC) 5 MG tablet amLODIPine (NORVASC) 5 MG tablet 04/14/2020 12:00:00 AM EST 5 mg Oral active Take 1 tablet (5 mg total) by mouth daily [facility] 5 mg 04/13/2020 12:00:00 AM EST tablet [...] mg total) by mouth daily with dinner [facility] 2 ML Midazolam 1 MG/ML Injection midazolam (VERSED) in jection midazolam (VERSED) injection 04/12/2020 02:11:53 PM EST active As needed, Starting Sat04/12/20 at 1411, Intra-Procedure [facility] Medication administered onsite fentaNYL Citrate (PF) (SUBLIMAZE) injection 6216-5827-37 04/12/2020 02:11:40 PM EST active As neede d, Starting Tu04/12/20 at 1411, Intra-Procedure [facility] Medication administered onsite Diltiazem Hydrochloride 60 MG Oral Tablet diltiazem (C ARDIZEM) tablet 60 mg diltiazem (CARDIZEM) tablet 60 mg 04/11/2020 06:00:00 PM EST 60 mg Oral active 60 mg, Oral, Every 6 hours (scheduled), First dose on Sat04/11/20 at 1800 [facility] Medication administered onsite rivaroxaban 20 MG Oral Tablet rivaroxaban (XARELTO) ta blet 20 mg rivaroxaban (XARELTO) tablet 20 mg 04/11/2020 06:00:00 PM EST 20 mg Oral active 20 mg, Oral, Daily with dinner, First dose on Sat04/11/20 at 1800 [facility] Medication administered onsite ondansetron (ZOFRAN) injection 4 mg [id number] 04/11/2020 03:32:1 5 PM EST 4 mg Intravenous active 4 mg, In travenous, Every 4 hours PRN, nausea, vomiting, Starting Sat04/11/20 at 1532 [facility] Medication administered onsite Acetaminophen 325 MG Oral Tablet acetaminophen (TYLENO L) 325 MG tablet 650 mg acetaminophen (TYLENOL) 325 MG tablet 650 mg 04/11/2020 03:32:15 PM EST 650 mg Oral active 650 mg, Or al, Every 4 hours PRN, mild pain (1-3), headaches, Starting Sat04/11/20 at 1532
"Maximum dose of acetaminophen is 4,000 mg from all sources in 24 hours."
[facility] Medication administered onsite 60 mg 04/11/2020 12:00:00 [...] 04/06/2020 12:00:00 AM EST ORAL completed [facility] ([facility]) 30 mg 04/04/2020 12:00:00 AM EST tablet 120 TAKE ONE TABLET BY MOUTH FOUR TIMES A DAY TAKE ONE TABLET BY MOUTH FOUR TIMES A DAY SOLD: 04/04/2020 [facility] Diltiazem Hydrochloride 30 MG Oral Tablet Diltiazem HCL 04/04/2020 12:00:00 AM EST ORAL completed [facility] ([facility]) 24 HR Diltiazem Hydrochloride 120 [...] EST ORAL completed [facility] ([facility] 24 HR Diltiazem Hydrochloride 300 MG Extended Release Oral Capsule Diltiazem HCL ER Beads 03/31/2020 12:00:00 AM EST ORAL completed [facility] ([facility]) 20 mg 10/12/2019 12:00:00 AM EDT tablet [...] Doxycycline Monohydrate 100 MG Oral Capsule Doxycycline [place] hydrate 04/28/2019 12:00:00 AM EST ORAL active M EDENT ([facility]) Atenolol 25 MG Oral Tablet Atenolol 04/28/2019 12:00:00 AM EST active [facility] ([facility] 100 mg 03/30/2019 12:00:00 AM EST capsule [...] by mouth 4 (four) times a day [facility] rivaroxaban 15 MG Oral Tablet rivaroxaban (XARELTO) 15 MG TABS rivaroxaban (XARELTO) 15 MG TABS 15 mg Oral aborted Sabas e 15 mg by mouth daily [facility] Atenolol 25 MG Oral Tablet atenolol (TENORMIN) 25 MG t ablet atenolol (TENORMIN) 25 MG tablet 25 mg Oral aborted Take 25 mg by mouth daily [facility] Insurance Providers Payer name Policy type / Coverage type Policy ID Covered republican ID Covered republican's relationship to saldaña Policy Saldaña Plan Information [facility]MR [facility] [id number] SP [id number] MEDICARE [id number] SP [id number] [facility] [id number] SP [id number] UMR O [id number] S [id number] MEDICARE C [id number] S [id number] MEDICARE [id number] MEDICARE [id number] Regla [id number] Umr Commercial [id number] Self [id number] UMR [facility] [id number] SP [id number] Umr Commercial [id number] Self [id number] Umr Medigap Part B [id number] Self [id number] [place] [employer] Ppo Commercial [id number] Self [id number] Umr Medigap Part B [id number] Self [id number] Umr Commercial [id number] Self [id number] Umr Commercial [id number] Self [id number] Umr Commercial [id number] Self [id number] Umr Commercial [id number] Self [id number] Umr Commercial [id number] Self [id number] Umr Commercial [id number] Self [id number] Umr Commercial [id number] Self [id number] Umr Commercial [id number] Self [id number] Umr Commercial [id number] Self [id number] Umr Commercial [id number] Self [id number] POMCO [id number] S [id number] Umr Commercial [id number] Self [id number] Umr Medigap Part B [id number] Self [id number] Umr Medigap Part B [id number] Self [id number] Umr Commercial [id number] Self [id number] [id number] Umr Commercial [id number] Self [id number] Umr Commercial [id number] Self [id number] Umr Commercial [id number] Self [id number] Umr Commercial [id number] Self [id number] Umr Commercial [id number] Self [id number] [id number] Umr Commercial [id number] Self [id number] Umr Commercial [id number] Self [id number] [id number] Umr Commercial [id number] Self [id number] [id number] Umr Commercial [id number] Self [id number] Umr Medigap Part B [id number] Self [id number] POM[employer] [id number] SP [id number] [employer] [employer] Ppo Commercial [id number] Self [id number] [employer]OM[employer] COMM SELF [id number] S [id number] Problems, Conditions, and Diagnoses Code Display Name Description Problem Type Effective Dates Data Source(s) 899311402 Paroxysmal atrial fibrillation Paroxysmal atrial fibri llation Problem 04/19/2020 12:00:00 AM EST [facility] ([facility]) [id number] Essential hypertension Essential hypertension Problem 04/19/2020 12:00:00 AM EST [facility] ([facility]) I48.3 Typical atrial flutter Typical atrial flutter [id number] 04/11/2020 12:00:00 AM [facility] I48.92 Atrial flutter Atrial flutter [id number] 04/11/2020 12:00: 00 AM [facility] I48.3 Typical atrial flutter Typical atrial flutter Diagnosi s 04/11/2020 02:03:45 PM [facility] I48.92 Unspecified atrial flutter Unspecified atrial flutter Diagnosis 04/11/2020 02:03:45 PM EST [facility] Surgeries/Procedures Procedure Description Date Indications Data Source(s) ECG ROUTINE ECG W/LEAST 12 LDS W/I&R 04/19/2020 12:00: 00 AM EST [facility]ON ([facility]) Arterial Pressure Waveform Analysis For Assessment Of Centra l Art 04/19/2020 12:00:00 AM EST ASIA ([facility]) BLOOD COUNT COMPLETE AUTOMATED CBC Routine 04/13/2020 4:23 A M EST 04/13/2020 09:23:00 AM EST [facility] BASIC METABOLIC PANEL CALCIUM TOTAL BASIC METABOLIC PANEL Routi ne 04/13/2020 4:23 AM EST 04/13/2020 09:23:00 AM EST [facility] EP STUDY EP STUDY Routine 04/12/2020 2:29 PM EST Typical atrial flutter 04/12/2020 07:29:52 PM EST Typical atrial flutter [facility] Typical atrial flutter ECHO TTHRC R-T 2D W/WOM-MODE COMPL SPEC&COLR DOP ECHOCARDIO GRAM TRANSTHORACIC Routine 04/12/2020 7:30 AM EST 04/12/2020 12:30:00 PM EST [facility] ECG ROUTINE ECG W/LEAST 12 LDS TRCG ONLY W/O I&R ECG 12-LEAD Routine 04/12/2020 6:35 AM EST 04/12/2020 11:35:16 AM EST [facility] BLOOD COUNT COMPLETE AUTOMATED CBC Routine 04/12/2020 5:19 A M EST 04/12/2020 10:19:00 AM EST [facility] BASIC METABOLIC PANEL CALCIUM TOTAL BASIC METABOLIC PANEL Routi ne 04/12/2020 5:19 AM EST 04/12/2020 10:19:00 AM EST [facility] THROMBOPLASTIN TIME PARTIAL PLASMA/WHOLE BLOOD APTT Routine 04/11/2020 2:55 PM EST 04/11/2020 07:55:00 PM EST [facility] PROTHROMBIN TIME PROTIME-INR Routine 04/11/2020 2:55 PM EST 04/11/2020 07:55:00 PM EST [facility] BLOOD COUNT COMPLETE AUTOMATED CBC Routine 04/11/2020 2:55 P M EST 04/11/2020 07:55:00 PM EST [facility] COMPREHENSIVE METABOLIC PANEL COMPREHENSIVE METABOLIC PANEL Rou elder 04/11/2020 2:55 PM EST 04/11/2020 07:55:00 PM EST [facility] ECG ROUTINE ECG W/LEAST 12 LDS W/I&R ECG 12-LEAD Routine 04/11/2020 2:01 PM EST 04/11/2020 07:01:27 PM [facility] Electrocardiogram Complete 04/07/2020 12:00:00 AM EST [facility] ([facility]) ECG ROUTINE ECG W/LEAST 12 LDS W/I&R 12/03/2019 12:00: 00 AM EDT [facility] ([facility]) Omt 7-8 Body Regions 06/24/2019 12:00:00 AM EDT [facility] ([facility]) Omt 7-8 Body Regions 06/05/2019 12:00:00 AM EST [facility] ([facility]) Omt 7-8 Body Regions 05/08/2019 12:00:00 AM EST [facility] ([facility]) ECG ROUTINE ECG W/LEAST 12 LDS W/I&R 04/29/2019 12:00: 00 AM EST [facility] ([facility]) Omt 7-8 Body Regions 04/07/2019 12:00:00 AM EST [facility] ([facility]) Results ID Date Data Source [id number] 05/30/2020 04:29:00 AM EST [facility] ([facility]) Name Value Range Interpretation Code Description Data Kathi rce(s) Supporting Document(s) Phosphate [Moles/volume] in Serum or Plasma 3.6 mg/dL 2.5- 4.9 Normal (applies to non-numeric results) [facility] ([facility]) Lipase [Enzymatic activity/volume] in Serum or Plasma 235 U/L 73-393 Normal (applies to non-numeric results) [facility] ([facility]) Magnesium [Mass/volume] in Serum or Plasma 2.1 mg/dL 1.8-2 .4 Normal (applies to non-numeric results) [facility]) Thyrotropin [Units/volume] in Serum or Plasma 2.430 uIU/ML 0. 358-3.740 Normal (applies to non-numeric results) [facility] ([facility]) Thyroxine (T4) free [Mass/volume] in Serum or Plasma 1.22 ng/dL 0.76-1.46 Normal (applies to non-numeric results) [facility] ([facility]) ID Date Data Source [id number] 05/30/2020 04:29:00 AM EST [facility] ([facility]) Name Value Range Interpretation Code Description Data Kathi rce(s) Supporting Document(s) Blood Urea Nitrogen 15 mg/dL 7-18 Normal (applies to non-nume kelly results) [facility] ([facility]) Glucose, Fasting 85 mg/dL 70-100 Normal (applies to non-numeric results) [facility] ([facility]) Creatinine For GFR 0.76 mg/dL 0.55-1.30 Normal (applies to non -numeric results) [facility] ([facility]) Glomerular Filtration Rate Laboratory test result Normal (applies to non- numeric results) [facility] ([facility]) <content>Units are mL/min/1.73 m2</content>
<content></content>
<content>Chronic Kidney Disease Staging per NKF:</content>
<content></content>
<content>Stage I & II GFR >=60 Normal to Mildly Decreased</content>
<content>Stage III GFR 30- 59 Moderately Decreased</content>
<content>Stage IV GFR 15-29 Severely Decreased</content>
<content>Stage V GFR <15 Very Little GFR Left</content>
<content>ESRD GFR <15 on HOUSEKEEPER/CUSTODIAN/LAUNDRY WORKER</content>
<content></content> Potassium Serum 3.9 meq/L 3.5-5.1 Normal (applies to non-numeric results) [facility] ([facility]) Sodium Level 143 meq/L 136-145 Normal (applies to non-numeric res ults) [facility] ([facility]) Chloride Level 106 meq/L 98-107 Normal (applies to non-numeric r esults) [facility] ([facility]) Carbon Dioxide Level 29 meq/L 21-32 Normal (applies to non-num pop results) [facility] ([facility]) Anion Gap 8 meq/L 8-16 Normal (applies to non-numeric resul ts) [facility] ([facility]) Calcium Level 9.5 mg/dL 8.8-10.2 Normal (applies to non-numeric re sults) [facility] ([facility]) ID Date Data Source [id number] 05/30/2020 04:29:00 AM EST [facility] ([facility]) Name Value Range Interpretation Code Description Data Kathi rce(s) Supporting Document(s) Ast/Sgot 30 U/L 7-37 Normal (applies to non-numeric resul ts) [facility] ([facility]) Alt/SGPT 43 U/L 12-78 Normal (applies to non-numeric resul ts) [facility] ([facility]) Bilirubin,Total 0.7 mg/dL 0.2-1.0 Normal (applies to non-numeric results) [facility] ([facility]) Alkaline Phosphatase 95 U/L 45-117 Normal (applies to non-num pop results) [facility] ([facility]) Bilirubin,Direct 0.2 mg/dL 0.0-0.2 Normal (applies to non-numeric results) [facility] ([facility]) Total Protein 6.6 GM/DL 6.4-8.2 Normal (applies to non-numeric re sults) [facility] ([facility]) Albumin 3.8 GM/DL 3.2-5.2 Normal (applies to non-numeric resul ts) [facility] ([facility]) Albumin/Globulin Ratio 1.4 1.2-2.2 Normal (applies to non-n umeric results) [facility] ([facility]) ID Date Data Source [id number] 05/30/2020 04:29:00 AM EST [facility] ([facility]) Name Value Range Interpretation Code Description Data Kathi rce(s) Supporting Document(s) CPK Creatine Phosphokinase 62 U/L 26-192 Queenie l (applies to non-numeric results) [facility] ([facility]) MB/CK Relative Index 2.42 Normal (applies to non-num pop results) [facility] ([facility]) <content>DIAGNOSIS CRITERIA</content>
<content>MMB ng/ml Relative Index (RI)</content>
<content>NON-AMI < or = 5 N/A</content>
<content>NGUYEN ZONE > 5 < or = 4</content>
<content>AMI > 5 > 4</content>
<content></content> CK-MB Value Mass 1.5 ng/mL Normal (applies to non-numeric results) [facility] ([facility]) Troponin I Laboratory test result Normal (applies to non-n umeric results) [facility] ([facility]) <content>Troponin I Reference Interval f or Siemens [place] LOCI:</content>
<content></content>
<content>99th Percentile= 0.00-0.045 ng/ml</content>
<content></content>
<content>Risk Stratification:</content>
<content><= 0.10 ng/ml Decreased Risk for Adverse Clinical</content>
<content>Events.</content>
<content>0.10-1.50 ng/ml Increased Risk for Adverse Clinical</content>
<content>Events. Evaluation of additional</content>
<content>criterion and/or repeat testing in 2-6</content>
<content>hours is suggested to rule out myocardial</content>
<content>damage.</content>
<content>>= 1.50 ng/ml Indicative of Myocardial Injury.</content>
<content></content> ID Date Data Source [id number] 05/30/2020 04:29:00 AM EST [facility]) Name Value Range Interpretation Code Description Data Kathi rce(s) Supporting Document(s) aPTT in Platelet poor plasma by Coagulation assay 38.4 s 24.2-38.5 Normal (applies to non-numeric results) [facility] ([facility]) ID Date Data Source [id number] 05/30/2020 04:29:00 AM EST [facility]) Name Value Range Interpretation Code Description Data Kathi rce(s) Supporting Document(s) Inr 1.68 Normal (applies to non-numeric resul ts) [facility] ([facility]) THERAPUTIC HUMAN INR VALUES INDICATIONS NORMAL RANGES PROPHYLAXIS/TREATMENT OF: VENOUS THROMBOSIS 2.0-3.0 PULMONARY EMBOLISM 2.0-3.0 PREVENTION OF SYSTEMIC EMBOLISM FROM: TISSUE HEART VALVES 2.0-3.0 ACUTE MYOCARDIAL INFARCTION 2.0-3.0 VALVULAR HEART DISEASE 2.0-3.0 ATRIAL FIBRILLATION 2.0-3.0 MECHANICAL VALVES(HIGH RISK) 2.5-3.5 RECURRENT MYOCARDIAL INFARCTION 2.5-3.5 Prothrombin Time 20.2 s 12.5-14.3 Above high normal M [facility]) ID Date Data Source [id number] 05/30/2020 04:29:00 AM EST [facility] ([facility]) Name Value Range Interpretation Code Description Data Kathi rce(s) Supporting Document(s) White Blood Count 6.7 10 4.0-10.0 Normal (applies to non-numeri c results) [facility] ([facility]) Hemoglobin 14.4 g/dL 12.0-15.5 Normal (applies to non-numeric resul ts) [facility] ([facility]) Red Blood Count 4.69 10 4.00-5.40 Normal (applies to non-numeric results) [facility] ([facility]) Hematocrit 42.2 % 36.0-47.0 Normal (applies to non-numeric resul ts) [facility] ([facility]) Mean Corpuscular Volume 90.0 fl 80.0-96.0 Normal ( applies to non-numeric results) [facility] ([facility]) Mean Corpuscular Hemoglobin 30.7 pg 27.0-33.0 Norm al (applies to non-numeric results) [facility] ([facility] [facility] Red Cell Distribution Width 12.0 % 11.5-14.5 Norm al (applies to non-numeric results) [facility] ([facility]) Mean Corpuscular HGB Conc 34.1 g/dL 32.0-36.5 Normal (applies to non-numeric results) [facility] ([facility]) Platelet Count, Automated 244 10 150-450 Normal (applies to non-numeric results) [facility] ([facility]) [place] % 10.5 % 2.0-8.0 Above high normal [facility] ([facility]) Neutrophils % 50.3 % 36.0-66.0 Normal (applies to non-numeric re sults) [facility] ([facility]) Lymph % 37.3 % 24.0-44.0 Normal (applies to non-numeric resul ts) [facility] ([facility]) Eos % 1.2 % 0.0-3.0 Normal (applies to non-numeric resul ts) [facility] ([facility]) Immature Granulocyte % 0.3 % 0-3.0 Normal (applies to non-n umeric results) [facility] ([facility]) Baso % 0.4 % 0.0-1.0 Normal (applies to non-numeric resul ts) [facility] ([facility]) Lymph # 2.5 10 1.5-5.0 Normal (applies to non-numeric resul ts) [facility] ([facility]) Neutrophils # 3.4 10 1.5-8.5 Normal (applies to non-numeric re sults) [facility] ([facility]) Nucleated Red Blood Cell % 0.0 % 0-0 Normal (applies to n on-numeric results) [facility] ([facility]) [place] # 0.7 10 0.0-0.8 Normal (applies to non-numeric resul ts) [facility] ([facility]) Eos # 0.1 10 0.0-0.5 Normal (applies to non-numeric resul ts) [facility] ([facility]) Baso # 0.0 10 0.0-0.2 Normal (applies to non-numeric resul ts) [facility]) ID Date Data Source [id number] 2020 07:05:00 PM EST [facility] ([facility]) Name Value Range Interpretation Code Description Data Kathi rce(s) Supporting Document(s) Laboratory test finding (navigational concept) 0.77 0 .4-2.0 Normal (applies to non-numeric results) [facility]) ID Date Data Source [id number] 2020 01:51:00 PM EST [facility] ([facility]) Name Value Range Interpretation Code Description Data Kathi rce(s) Supporting Document(s) Laboratory test finding (navigational concept) 41.0 % 3 8.0-51.0 Normal (applies to non-numeric results) [facility]) Laboratory test finding (navigational concept) 140 meq/L 1 36-145 Normal (applies to non-numeric results) [facility] ([facility]) Laboratory test finding (navigational concept) 4.1 meq/L 3 .5-5.1 Normal (applies to non-numeric results) [facility] ([facility]) Laboratory test finding (navigational concept) 92 mg/dL 7 0-105 Normal (applies to non-numeric results) [facility] ([facility]) Laboratory test finding (navigational concept) 104 meq/L 9 8-109 Normal (applies to non-numeric results) [facility] ([facility]) Laboratory test finding (navigational concept) 4.7 mg/dL 4 .5-5.3 Normal (applies to non-numeric results) [facility] ([facility]) Laboratory test finding (navigational concept) 18 mg/dL 8 -26 Normal (applies to non-numeric results) [facility] ([facility]) Laboratory test finding (navigational concept) 27.0 MM/L 2 3.0-27.0 Normal (applies to non-numeric results) [facility] ([facility]) Laboratory test finding (navigational concept) 0.7 mg/dL 0 .6-1.3 Normal (applies to non-numeric results) [facility] ([facility]) ID Date Data Source [id number] 05/22/2020 04:48:00 PM EST [facility] ([facility]) Name Value Range Interpretation Code Description Data Kathi rce(s) Supporting Document(s) Red Blood Count 4.74 10 4.00-5.40 Normal (applies to non-numeric results) [facility] ([facility]) White Blood Count 7.6 10 4.0-10.0 Normal (applies to non-numeri c results) [facility] ([facility]) Hematocrit 42.5 % 36.0-47.0 Normal (applies to non-numeric resul ts) [facility] ([facility]) Hemoglobin 14.7 g/dL 12.0-15.5 Normal (applies to non-numeric resul ts) [facility] ([facility]) Mean Corpuscular Volume 89.7 fl 80.0-96.0 Normal ( applies to non-numeric results) [facility] ([facility]) Mean Corpuscular HGB Conc 34.6 g/dL 32.0-36.5 Normal (applies to non-numeric results) [facility] ([facility]) Red Cell Distribution Width 12.0 % 11.5-14.5 Norm al (applies to non-numeric results) [facility] ([facility]) Mean Corpuscular Hemoglobin 31.0 pg 27.0-33.0 Norm al (applies to non-numeric results) [facility] ([facility]) Neutrophils % 63.4 % 36.0-66.0 Normal (applies to non-numeric re sults) [facility] ([facility]) Lymph % 25.7 % 24.0-44.0 Normal (applies to non-numeric resul ts) [facility] ([facility]) Platelet Count, Automated 249 10 150-450 Normal (applies to non-numeric results) [facility] ([facility]) [place] % 9.6 % 2.0-8.0 Above high normal [facility] ([facility]) Baso % 0.4 % 0.0-1.0 Normal (applies to non-numeric resul ts) [facility] ([facility]) Eos % 0.5 % 0.0-3.0 Normal (applies to non-numeric resul ts) [facility] ([facility]) Immature Granulocyte % 0.4 % 0-3.0 Normal (applies to non-n umeric results) [facility] ([facility]) Neutrophils # 4.8 10 1.5-8.5 Normal (applies to non-numeric re sults) [facility] ([facility]) Nucleated Red Blood Cell % 0.0 % 0-0 Normal (applies to n on-numeric results) [facility] ([facility]) Eos # 0.0 10 0.0-0.5 Normal (applies to non-numeric resul ts) [facility] ([facility]) [place] # 0.7 10 0.0-0.8 Normal (applies to non-numeric resul ts) [facility] ([facility]) Lymph # 2.0 10 1.5-5.0 Normal (applies to non-numeric resul ts) [facility] ([facility]) Baso # 0.0 10 0.0-0.2 Normal (applies to non-numeric resul ts) [facility] ([facility]) ID Date Data Source [id number] 05/22/2020 04:47:00 PM EST [facility] ([facility]) Name Value Range Interpretation Code Description Data Kathi rce(s) Supporting Document(s) CPK Creatine Phosphokinase 58 U/L 26-192 Queenie l (applies to non-numeric results) [facility]) CK-MB Value Mass 1.2 ng/mL Normal (applies to non-numeric results) [facility] ([facility]) MB/CK Relative Index 2.07 Normal (applies to non-num pop results) [facility]) <content>DIAGNOSIS CRITERIA</content>
<content>MMB ng/ml Relative Index (RI)</content>
<content>NON-AMI < or = 5 N/A</content>
<content>NGUYEN ZONE > 5 < or = 4</content>
<content>AMI > 5 > 4</content>
<content></content> Troponin I Laboratory test result Normal (applies to non-n umeric results) [facility] ([facility]) <content>Troponin I Reference Interval f or Siemens [place] LOCI:</content>
<content></content>
<content>99th Percentile= 0.00-0.045 ng/ml</content>
<content></content>
<content>Risk Stratification:</content>
<content><= 0.10 ng/ml Decreased Risk for Adverse Clinical</content>
<content>Events.</content>
<content>0.10-1.50 ng/ml Increased Risk for Adverse Clinical</content>
<content>Events. Evaluation of additional</content>
<content>criterion and/or repeat testing in 2-6</content>
<content>hours is suggested to rule out myocardial</content>
<content>damage.</content>
<content>>= 1.50 ng/ml Indicative of Myocardial Injury.</content>
<content></content> ID Date Data Source [id number] 05/22/2020 04:47:00 PM EST [facility] ([facility]) Name Value Range Interpretation Code Description Data Kathi rce(s) Supporting Document(s) Alkaline Phosphatase 101 U/L 45-117 Normal (applies to non-num pop results) [facility] ([facility]) Alt/SGPT 49 U/L 12-78 Normal (applies to non-numeric resul ts) [facility] ([facility]) Ast/Sgot 33 U/L 7-37 Normal (applies to non-numeric resul ts) [facility] ([facility]) Bilirubin,Total 0.4 mg/dL 0.2-1.0 Normal (applies to non-numeric results) [facility] ([facility]) Total Protein 6.5 GM/DL 6.4-8.2 Normal (applies to non-numeric re sults) [facility] ([facility]) Bilirubin,Direct 0.1 mg/dL 0.0-0.2 Normal (applies to non-numeric results) [facility] ([facility]) Albumin/Globulin Ratio 1.3 1.2-2.2 Normal (applies to non-n umeric results) [facility] ([facility]) Albumin 3.7 GM/DL 3.2-5.2 Normal (applies to non-numeric resul ts) [facility] ([facility]) ID Date Data Source [id number] 05/22/2020 04:47:00 PM EST [facility] ([facility]) Name Value Range Interpretation Code Description Data Kathi rce(s) Supporting Document(s) Blood Urea Nitrogen 21 mg/dL 7-18 Above high normal [facility] ([facility]) Glucose, Fasting 77 mg/dL 70-100 Normal (applies to non-numeric results) [facility] ([facility]) Creatinine For GFR 0.86 mg/dL 0.55-1.30 Normal (applies to non -numeric results) [facility] ([facility]) Glomerular Filtration Rate Laboratory test result Normal (applies to non- numeric results) [facility] ([facility]) <content>Units are mL/min/1.73 m2</content>
<content></content>
<content>Chronic Kidney Disease Staging per NKF:</content>
<content></content>
<content>Stage I & II GFR >=60 Normal to Mildly Decreased</content>
<content>Stage III GFR 30- 59 Moderately Decreased</content>
<content>Stage IV GFR 15-29 Severely Decreased</content>
<content>Stage V GFR <15 Very Little GFR Left</content>
<content>ESRD GFR <15 on HOUSEKEEPER/CUSTODIAN/LAUNDRY WORKER</content>
<content></content> Chloride Level 107 meq/L 98-107 Normal (applies to non-numeric r esults) [facility] ([facility]) Sodium Level 142 meq/L 136-145 Normal (applies to non-numeric res ults) [facility] ([facility]) Potassium Serum 4.0 meq/L 3.5-5.1 Normal (applies to non-numeric results) [facility] ([facility]) Anion Gap 8 meq/L 8-16 Normal (applies to non-numeric resul ts) [facility] ([facility]) Carbon Dioxide Level 27 meq/L 21-32 Normal (applies to non-num pop results) [facility] ([facility]) Calcium Level 9.2 mg/dL 8.8-10.2 Normal (applies to non-numeric re sults) [facility] ([facility]) ID Date Data Source [id number] 05/22/2020 04:47:00 PM EST [facility] ([facility]) Name Value Range Interpretation Code Description Data Kathi rce(s) Supporting Document(s) Lipase [Enzymatic activity/volume] in Serum or Plasma 371 U/L 73-393 Normal (applies to non-numeric results) [facility] ([facility]) ID Date Data Source [id number] 04/14/2020 08:40:00 PM EST [facility] ([facility]) Name Value Range Interpretation Code Description Data Kathi rce(s) Supporting Document(s) Laboratory test finding (navigational concept) 0.38 ng/mL 0 .00-0.08 Above high normal [facility] ([facility]) ID Date Data Source [id number] 04/14/2020 08:34:00 PM EST [facility] ([facility]) Name Value Range Interpretation Code Description Data Kathi rce(s) Supporting Document(s) Laboratory test finding (navigational concept) 48.0 % 3 8.0-51.0 Normal (applies to non-numeric results) [facility] ([facility]) Laboratory test finding (navigational concept) 144 mg/dL 7 0-105 Above high normal [facility] ([facility]) Laboratory test finding (navigational concept) 3.8 meq/L 3 .5-5.1 Normal (applies to non-numeric results) [facility] ([facility]) Laboratory test finding (navigational concept) 138 meq/L 1 36-145 Normal (applies to non-numeric results) [facility] ([facility]) Laboratory test finding (navigational concept) 104 meq/L 9 8-109 Normal (applies to non-numeric results) [facility] ([facility]) Laboratory test finding (navigational concept) 25.0 MM/L 2 3.0-27.0 Normal (applies to non-numeric results) [facility] ([facility]) Laboratory test finding (navigational concept) 23 mg/dL 8 -26 Normal (applies to non-numeric results) [facility] ([facility]) Laboratory test finding (navigational concept) 4.4 mg/dL 4 .5-5.3 Below low normal [facility] ([facility]) Laboratory test finding (navigational concept) 0.7 mg/dL 0 .6-1.3 Normal (applies to non-numeric results) [facility] ([facility]) ID Date Data Source [id number] 04/14/2020 08:30:00 PM EST [facility] ([facility]) Name Value Range Interpretation Code Description Data Kathi rce(s) Supporting Document(s) White Blood Count 9.3 10 4.0-10.0 Normal (applies to non-numeri c results) [facility] ([facility]) Hemoglobin 17.0 g/dL 12.0-15.5 Above high normal [facility] ([facility]) Hematocrit 49.0 % 36.0-47.0 Above high normal [facility] ([facility]) Red Blood Count 5.41 10 4.00-5.40 Above high normal [facility] ([facility]) Mean Corpuscular Hemoglobin 31.4 pg 27.0-33.0 Norm al (applies to non-numeric results) [facility] ([facility]) Mean Corpuscular HGB Conc 34.7 g/dL 32.0-36.5 Normal (applies to non-numeric results) [facility] ([facility]) Mean Corpuscular Volume 90.6 fl 80.0-96.0 Normal ( applies to non-numeric results) [facility] ([facility]) Red Cell Distribution Width 11.8 % 11.5-14.5 Norm al (applies to non-numeric results) [facility] ([facility]) Neutrophils % 68.7 % 36.0-66.0 Above high normal [facility] ([facility]) Platelet Count, Automated 236 10 150-450 Normal (applies to non-numeric results) [facility] ([facility]) [place] % 9.3 % 0.0-5.0 Above high normal [facility] ([facility]) Lymph % 20.4 % 24.0-44.0 Below low normal [facility] ( [facility]) Eos % 0.9 % 0.0-3.0 Normal (applies to non-numeric resul ts) [facility] ([facility]) Baso % 0.3 % 0.0-1.0 Normal (applies to non-numeric resul ts) [facility] ([facility]) Nucleated Red Blood Cell % 0.0 % 0-0 Normal (applies to n on-numeric results) [facility] ([facility]) Immature Granulocyte % 0.4 % 0-3.0 Normal (applies to non-n umeric results) [facility] ([facility]) Lymph # 1.9 10 1.5-5.0 Normal (applies to non-numeric resul ts) [facility] ([facility]) [place] # 0.9 10 0.0-0.8 Above high normal [facility] ([facility]) Neutrophils # 6.4 10 1.5-8.5 Normal (applies to non-numeric re sults) [facility] ([facility]) Eos # 0.1 10 0.0-0.5 Normal (applies to non-numeric resul ts) [facility] ([facility]) Baso # 0.0 10 0.0-0.2 Normal (applies to non-numeric resul ts) [facility] ([facility]) ID Date Data Source [id number] 04/14/2020 03:26:00 PM EST [facility] Name Value Range Interpretation Code Description Data Kathi rce(s) Supporting Document(s) Hematocrit [Volume Fraction] of Blood by Automated count 49.0 [facility] ([facility]) Hemoglobin [Mass/volume] in Blood 17.0 [facility] ([facility]) Erythrocyte mean corpuscular volume [Entitic volume] by Automate d count 90.6 [facility] ([facility]) Erythrocyte mean corpuscular hemoglobin [Entitic mass] by Au tomated count 31.4 [facility] ([facility]) Erythrocyte mean corpuscular hemoglobin concentration [Mass/volume] by Automated count 34.7 [facility] Neutrophils 68.7 [facility] ([facility]) Platelet mean volume [Entitic volume] in Blood by [place] Laboratory test result [facility] Platelets [#/volume] in Blood [...] by Manual count Laboratory test result [facility] ([facility]) Basophils/100 leukocytes in Blood [...] [facility]) ID Date Data Source [id number] 04/14/2020 03:26:00 PM EST [facility] ([facility]) ID Date Data Source [id number] 04/13/2020 12:19:30 [facility]FORMATION[facility] Name Date of Age Gend*PT [id number] Shaydaniel Mercy 1955 64 years F SDCXPT Location Admission Date/Time Visit ID Attending Provider04/11/20 1403 --- Zhanna Harris MD([id number]) EPI ID CSN Admitting Provider [id number] Zhanna Harris MD([id number]) Attestation signed by Zhanna Harris MD at 04/13/2020 12:19 PMATTENDING ADDENDUM:I saw and examined Ms. Arreola today, and agree with the exam, assessment,and plan of damon Benitez, noted above.In brief, Ms. Arreola presents with typical with successful RFA.I agree with the plan as noted above.Beto Harris M.D., [facility], RSClinical Cardiac Electrophysiology04/13/2020 12:18 PM --Cardiology Discharge Summary Mercy ArreolaMRN: [id number] date: 04/11/2020ttending Physician: [facility] Diagnosis: Typical atrial flutterSecondary Diagnoses: Principal Problem: [...] Lyme disease, status post treatment . [place], [address]. Atrial flutter status post multiple DC cardioversions. Patient on Xarelto.4. Distant history of tobacco useThe patient [facility] for palpitations witha heart rate [...] VITAMIN C Take 500 mg by mouth [id number] Tabs Take 1 tablet by mouth dailydicyclomine [...] Get Your MedicationsThese medications were sent to [facility] [place], [place] - [address] [place] [address] amLODIPine 5 MG tablet rivaroxaban 20 MG [...] Name Value Range Interpretation Code Description Data [facility] Supporting Document(s) ID Date Data Source [id number] 04/13/2020 06:50:43 AM EST [facility] Name Value Range Interpretation Code Description Data [facility](s) Supporting Document(s) SODIUM 139 mmol/L (136-145) [facility] POTASSIUM 4.3 mmol/L (3.6-5.2) [facility] CHLORIDE 105 mmol/L (100-108) [facility] CO2 25 mmol/L (22-31) [facility] ANION GAP 9 mmol/L (7-16) [facility] UREA NITROGEN 25 mg/dL (7-24) H [facility] CREATININE 0.80 mg/dL (0.60-1.00) [facility] BUN/CREAT RATIO 31.3 RATIO (10.0-20.0) H [facility] GLUCOSE 71 mg/dL (70-99) [facility] CALCIUM 8.9 mg/dL (8.4-10.2) [facility] GFR >60 ml/min/1.73m2 (>59) [facility] GFR ( AMER) >60 ml/min/1.73m2 (>59) [facility] GFR INTERPRETATION [facility] --NORMAL KIDNEY FUNCTION OR MILD DISEASE - GFR >OR= 60CHRONIC KIDNEY DISEASE - GFR 15 - 59RENAL FAILURE - GFR <15 Est. GFR calculation based on the MDRDstudy equation, which assumes a steadystate for creatinine. Est. GFR should notbe used for medication dosing. ID Date Data Source [id number] 04/13/2020 04:36:41 AM EST [facility] Name Value Range Interpretation Code Description Data Kathi rce(s) Supporting Document(s) WBC 8.8 10*3/uL (4.1-11.0) [facility] RBC 5.24 10*6/uL (4.00-5.40) [facility] HGB 17.1 g/dL (12.0-16.0) H [facility] HCT 49.1 % (36.0-47.0) H [facility]FOR[facility] AT [address] [place] [address] N [place] [address] MCV 93.7 fL (80.0-95.0) [facility] MCH 32.6 pg (27.0-32.0) H [facility] MCHC 34.8 g/dL (32.0-36.0) [facility] RDW 12.4 % (10.5-14.5) [facility] PLT 234 10*3/uL (150-450) [facility] MPV 7.6 fL (7.1-10.7) [facility] ID Date Data Source [id number] 04/12/2020 02:52:26 PM EST [facility] Name Value Range Interpretation Code Description Data Kathi rce(s) Supporting Document(s) &PDF [facility] [id number]jKLUHComNW0yTDHeGBi1zYXUh waW [file] [id number]== ID Date Data Source [id number] 04/12/2020 10:05:42 AM EST [facility] Name Value Range Interpretation Code Description Data Kathi rce(s) Supporting Document(s) &PDF [facility] [id number]/SZEjrRJYid2UtTHzeWZm8VIduBUDdZ7AyzJagDQABKnyHT7rYJUgLSl2xNQRe waW [file] site reliability engineer+sAxaOtt3izgWXUM6SvfCY45oi35Td5lzQY4ZRw [file] AgICAgICAgICAgICAgICAgICAgICAgICAgICAgICAgICAgICAgICAgICAgICAgICAgICAgICAgICAgIC AgICAgICAgICAgICAgICANCiAgICAgICAgICAgICAg ICAgICAgICAgICAgICAgICAgICAgICAgICAgICAgICAgICAgICAgICAgICAgICAgICAgICAgICAgICAg ICAgICAgICAgICAgICAgICAgICAgICAgICANCiAgICAgICAgICAgICAgICAgICAgICAgICAgICAgICAg ICAgICAgICAgICAgICAgICAgICAgICAgICAgICAgIC AgICAgICAgICAgICAgICAgICAgICAgICAgICAgICAgICAgICANCiAgICAgICAgICAgICAgICAgICAgIC AgICAgICAgICAgICAgICAgICAgICAgICAgICAgICAgICAgICAgICAgICAgICAgICAgICAgICAgICAgIC AgICAgICAgICAgICAgICAgICANCiAgICAgICAgICAg ICAgICAgICAgICAgICAgICAgICAgICAgICAgICAgICAgICAgICAgICAgICAgICAgICAgICAgICAgICAg ICAgICAgICAgICAgICAgICAgICAgICAgICAgICANCiAgICAgICAgICAgICAgICAgICAgICAgICAgICAg ICAgICAgICAgICAgICAgICAgICAgICAgICAgICAgIC AgICAgICAgICAgICAgICAgICAgICAgICAgICAgICAgICAgICAgICANCiAgICAgICAgICAgICAgICAgIC AgICAgICAgICAgICAgICAgICAgICAgICAgICAgICAgICAgICAgICAgICAgICAgICAgICAgICAgICAgIC AgICAgICAgICAgICAgICAgICAgICANCiAgICAgICAg ICAgICAgICAgICAgICAgICAgICAgICAgICAgICAgICAgICAgICAgICAgICAgICAgICAgICAgICAgICAg ICAgICAgICAgICAgICAgICAgICAgICAgICAgICAgICANCiAgICAgICAgICAgICAgICAgICAgICAgICAg ICAgICAgICAgICAgICAgICAgICAgICAgICAgICAgIC AgICAgICAgICAgICAgICAgICAgICAgICAgICAgICAgICAgICAgICAgICANCiAgICAgICAgICAgICAgIC AgICAgICAgICAgICAgICAgICAgICAgICAgICAgICAgICAgICAgICAgICAgICAgICAgICAgICAgICAgIC AgICAgICAgICAgICAgICAgICAgICAgICANCjw/eHBh P1inxZAraoL5N2xuHq5YLa4GOV8qc0LmZAHyZPkfqkOiObmWLdKfVLYvPyvBXcx5YKcvKW5UlIIkN6Bb X4AyIWqaAX3CRYYzCDJjbDHmNVAeLDStCaQ6JEXzGYggKN8MsMZxTAthOSLsHXWsEgFnPKSlJUOxOHZh IV7DHTDlB827gwLjWh1OSs1KPqSpCP8ygu9AXzohPG WtLnwSLrw2UXxvZI5LfWQxD3HwyYUmr7xWClJdU3AVCNK3MYNlVs1OTXTeHlKwBXBmFKslZM1nZJFxBQ IXqQplhbN2YT6MOV5slkNlGY3OMwJxKd6mYa0LGfGxF5NxE0CsRTNnEHGSEZogUK4OOHLuSHO8TKNvWu NfKQGTWbVlV36lEZ6HK6Obw65yKhG6LCLgHiHkZTex FD54iPmhmsVzdDBwaHueHW8MUp4+URfiqaUiWpeOAcliVDGSSoAyTdxLYqSfZCFqGHVzPXLdGiL6UhKr Sg8DUDAtCKOoAZJaKyGsFMGuJUJnHVgcZQYxAAR1QOF0QUZwBMYnUL0EKgAiOHAgXbg2ClPdHQMxGEAn xd3HLKVqMNLuKWQ9GXPkPZOlLXBaTVfiADBfLIMnPW YrBVTxXCNmAH4WLdTaLAKdOETiSjovFAOiENEeiq4LHDEpZULnHvX3KcEjNLNoHQXdZWxqMYUgKMX8Jb o0HDAiUDBdHG6IEfOgRDZqDPd8MtfpZQBsQOAzeb0RQTDuUOEdGpv4LsRyVHLyHOQrKQdzRDPqOPZ5PZ VkDPUgYFKtAK6MJoIuKRQuYBi7ZJtqMMLkOJFnxr5V KMTmOXKeDPV8HgMaOEPlTWHyDCvhWQNpKARaTGGsJSMhHHMhNW5UWpHwKYGyYGPuOYXhBTDpXLBxci4T NIPlYHAcUZOnYJBaTADfXZZbDWdoLMOlJVY0Oto8FKYkVYUbSP2MIbHrHBZsDAB7ISUrVRAvNPQwub6E EUIrVUNvRKzqSlWySDVkUSBaPXkkITQhFCN1TMY0ZG JwCDWuLE5ZJbLhBFBfCSDgXAKpTLKnAFGaic0MOWCcLPHyMaX4GQMcNLIoESJvRFylFZTvITJ6FYBhEM ZuHSMpCK7XNuNzRXHrUJb4HCTiRJSsVKFnck9RCOHgTUTlXrZ6DNEsRFHkMPZrDHwbCQUmJZR7OYZ1WD MqOOXlVC9DVzPcHYSxUao0BOKxVOWrLRPdlk4ZAQOg LCJhFAguUzTrEBRzQBUlCTe9hdNomRUdZAj2MR9WN4DipiCqKzjZEt8Sd718KKG8KSVrQk0FW5zyLc5v OXKsWTFCLr7GJVd5TaX5KIYgVer1FRFaW8A5UJuuX6MbZtU7M4W6XZZ2RRQ+QZemLZj2UWLyQUquJQMs HkhdUkO9FZYkFQC0PhGoZNk7Ia5bLVOETo1+HPjsvIWovDybGRDPJoR5BTC9GCztWUAGUz3E ID Date Data Source [id number] 04/12/2020 08:37:17 AM EST [facility] Name Value Range Interpretation Code Description Data Kathi rce(s) Supporting Document(s) EKG [facility] UOONNo7nRzNKYdXki2RyOcBxOIJqAX1pfaz1Z2N8jIKiK0GkoPTer0nsC5ExM0SgXVLsULIORI7NlOUc jb2 [file] O3n5zkZVHuSpXA/7XCirF0ogAaEd9V85rKKgHor0MCsnFY4/+5t6GpN5X/52n2gvg/Yq9v+TIx6p+childcare aide BP2ryfrk0W/2QtWR7hIa9TElPfiB1N9F0+6HC6X2GL+H/fpcLUaM0BCrtO+hTTwkAByF+uyf/ccnYZWA SdU0mVMd4CT1FxAnHfzPZjIYQMiC9MCbr4zAZORUQA aItSD3LJW4AbMoHZxAHyQJCxzbYmtcgOTlOADsbEJWi/oAUkTdBES+fAdKFkCpGHtsvZwOWYOAM8nVBC zzMuSQ8yZmjaYIODsZymHNdAE2FhYTO2y3UaOUBoqOiqogyRZo+RU4ZEdmRm9I9mgiwwCdgrU+gC+X76 1I6+yW26HIhIDlMGOYz7ztovILUC3AvBG36xjQHn10 VxPviCeXwyHQGjVHhzi52FeHJzkhbKAibqgkO9Pz4fXKzGbNjWKBA1SFEss+GBiZRrYCLleoquDBrBu9 tphBrTATkMq394eYtJ+uyvrQS2JLQYdYjnKpwj+QSU+MPsqUqRsMNa3YHxMZZWQsrc6fJbF0qOQCg4fU c2UXDSOMA9crRGVjwXQPOFTuWC3h5Do6T76QiMJTCZ [file] Aaf7WfJROmNOPYSm7+YgB0PKL1hFWfBqo3QoJ5JrseGCPYNt== ID Date Data Source [id number] 04/12/2020 06:32:35 AM EST [facility] Name Value Range Interpretation Code Description Data Kathi rce(s) Supporting Document(s) SODIUM 138 mmol/L (136-145) [facility] POTASSIUM 4.3 mmol/L (3.6-5.2) [facility] CHLORIDE 106 mmol/L (100-108) [facility] CO2 24 mmol/L (22-31) [facility] ANION GAP 8 mmol/L (7-16) [facility] UREA NITROGEN 29 mg/dL (7-24) H [facility] CREATININE 0.91 mg/dL (0.60-1.00) [facility] BUN/CREAT RATIO 31.9 RATIO (10.0-20.0) H [facility] GLUCOSE 83 mg/dL (70-99) [facility] CALCIUM 9.0 mg/dL (8.4-10.2) [facility] GFR >60 ml/min/1.73m2 (>59) [facility] GFR ([facility]) >60 ml/min/1.73m2 (>59) [facility] GFR INTERPRETATION [facility] --NORMAL KIDNEY FUNCTION OR MILD DISEASE - GFR >OR= 60CHRONIC KIDNEY DISEASE - GFR 15 - 59RENAL FAILURE - GFR <15 Est. GFR calculation based on the MDRDstudy equation, which assumes a steadystate for creatinine. Est. GFR should notbe used for medication dosing. ID Date Data Source [id number] 04/12/2020 06:02:20 AM EST [facility] Name Value Range Interpretation Code Description Data Kathi rce(s) Supporting Document(s) WBC 8.1 10*3/uL (4.1-11.0) [facility] RBC 5.45 10*6/uL (4.00-5.40) [facility] HGB 18.1 g/dL (12.0-16.0) [facility] HCT 50.6 % (36.0-47.0) [facility] PERFORMED AT [address] [place] [address] N Y [id number] MCV 92.8 fL (80.0-95.0) [facility] MCH 33.1 pg (27.0-32.0) [facility] MCHC 35.7 g/dL (32.0-36.0) [facility] RDW 12.8 % (10.5-14.5) [facility] PLT 258 10*3/uL (150-450) [facility] MPV 8.0 fL (7.1-10.7) [facility] ID Date Data Source [id number] 04/11/2020 05:34:01 PM EST [facility] INFORMATIONPatient MRN Name Date of Age Gend*PT [id number] [facility] Arreola 1955 64 years F SDCXPT Location Admission Date/Time Visit ID Attending Provider04/11/20 1403 --- Zhanna Harris MD([id number]) EPI ID CSN Admitting Provider [id number] Zhanna Harris MD([id number]) Attestation signed by Zhanna Harris MD at [...] the plan as noted above.Beto Harris M.D., [facility]iac Electrophysiology04/11/2020 4:17 PM --ADMISSION HISTORY AND [...] history of tobacco useThe patient presented to [facility] for palpitations witha heart rate [...] 15 mg daily, although review of records [id number] mg daily which would be the appropriate dose.The patient denies any history of TIA/CVA, CAD, PAD. Reports extensive testingin 2017 by her cash control specialist. She currently denies any symptoms other thanfatigue [...] file Gets together: Not on file Attends anglican service: Not on file Active member of [...] symmetricSkin: No rash or lumps.Neurologic: Grossly normalDiagnosticsLabs, [facility]:Glucose 94Creatinine 0.68Sodium 138Potassium 4.1AST 49ALT 76Mag [...] amiodarone, she wasloaded with IV amiodarone at [facility]. Continue oral cardizem. Start PO amiodarone.Monitor blood pressure and heart rate. Continue Xarelto, 20mg dose as she hasnormal creatinine.Plan RFA ablation for tomorrow. Further recommendations per Dr. Harris.Follow up with Dr. Galarza in 1-2 weeks after discharge.Signature: MIRELLA Cliftonate: April 11, 2020Time: 2:11 PM Name Value Range Interpretation Code Description Data Kathi rce(s) Supporting Document(s) ID Date Data Source [id number] 04/11/2020 04:54:08 PM EST [facility] Name Value Range Interpretation Code Description Data Kathi rce(s) Supporting Document(s) SODIUM 142 mmol/L (136-145) [facility] POTASSIUM 4.5 mmol/L (3.6-5.2) [facility] CHLORIDE 105 mmol/L (100-108) [facility] CO2 24 mmol/L (22-31) [facility] ANION GAP 13 mmol/L (7-16) [facility] UREA NITROGEN 17 mg/dL (7-24) [facility] CREATININE 0.70 mg/dL (0.60-1.00) [facility] BUN/CREAT RATIO 24.3 RATIO (10.0-20.0) [facility] GLUCOSE 78 mg/dL (70-99) [facility] CALCIUM 9.4 mg/dL (8.4-10.2) [facility] TOTAL PROTEIN 6.2 g/dL (6.4-8.2) L [facility] ALBUMIN 3.7 g/dL (3.2-4.5) [facility] GLOBULIN 2.5 g/dL (2.7-4.3) L [facility] ALB/GLOB RATIO 1.5 RATIO [facility] ALKALINE PHOSPHATASE 111 U/L (45-117) [facility] BILIRUBIN,TOTAL 0.9 mg/dL (0.0-1.0) [facility] PLEASE NOTE:Total bilirubin results may be falselyelevated in patients taking Eltrombopag. AST (SGOT) 51 U/L (11-39) [facility] ALT (SGPT) 82 U/L (12-78) [facility] GFR >60 ml/min/1.73m2 (>59) [facility] GFR ( [facility]) >60 ml/min/1.73m2 (>59) [facility] GFR INTERPRETATION [facility] --NORMAL KIDNEY FUNCTION OR MILD DISEASE - GFR >OR= 60CHRONIC KIDNEY DISEASE - GFR 15 - 59RENAL FAILURE - GFR <15 Est. GFR calculation based on the MDRDstudy equation, which assumes a steadystate for creatinine. Est. GFR should notbe used for medication dosing. ID Date Data Source [id number] 04/11/2020 04:38:13 PM EST [facility] Name Value Range Interpretation Code Description Data Kathi rce(s) Supporting Document(s) APTT 31.3 s (22.0-34.3) [facility] PERFORMED AT [address] [place] [address] N Y [address] ID Date Data Source [id number] 04/11/2020 04:38:13 PM EST [facility] Name Value Range Interpretation Code Description Data Kathi rce(s) Supporting Document(s) PT 11.7 s (9.2-11.9) [facility] PERFORMED AT [address] [place] [address] N Y [address] INR 1.12 [facility] SUGGESTED THERAPEUTIC RANGES USING INR F ORSTABILIZED ANTICOAGULATED PATIENTS:STANDARD DOSE THERAPY INR 2.0-3.0 DVT, PE, PREVENT DVT OR EMBOLISMHIGH DOSE THERAPY INR 2.5-3.5 PREVENT EMBOLISM FROM MECHANICAL HEART VALVE ID Date Data Source [id number] 04/11/2020 04:31:31 PM EST [facility] Name Value Range Interpretation Code Description Data Kathi rce(s) Supporting Document(s) WBC 9.0 10*3/uL (4.1-11.0) [facility] RBC 5.81 10*6/uL (4.00-5.40) H [facility] HGB 19.1 g/dL (12.0-16.0) H [facility] HCT 54.4 % (36.0-47.0) H [facility] PERFORMED AT [address] [place], [place] [address]USE N Y [address] MCV 93.7 fL (80.0-95.0) [facility] MCH 32.9 pg (27.0-32.0) H [facility] MCHC 35.1 g/dL (32.0-36.0) [facility] RDW 12.8 % (10.5-14.5) [facility] PLT 274 10*3/uL (150-450) [facility] MPV 8.4 fL (7.1-10.7) [facility] ID Date Data Source [id number] 04/11/2020 02:17:21 PM EST 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 tl/KEKgeRSQao8xMQaPPaoNUhyxN2D14xl+VurGfAS4D5zP4mAxRBQegOHokdW4KZJz2ZkVs3QG5kHAa lGvGsRSVDGWusKn/nJfWpiGOJZRgxLHoZ//zX//7P/ 7cY0gtWY7m//7nf/1f9f/45z//zz//539Yl/cn02qYo/jxB4Pkdg22A7oopgh5+D+s/HsFlfrpr/2HLW zmr61nKjheA/kwS7kZ1bjP7N9/TG7cqf3HXYOdLyD4hZEEfArPbF1urB12g0hau7pBzAU/4/2iF2uM4l OA7keg05+egf9+4IiN4V/W5Qb6/5k56F6nfXF+fO2r cA6Dleirfo1a5r8c31+4rSkK/q/9d+7/2h8k/r0wjF/1hh8VGlL/mlaeJDf73oiqb+RwwgWBuh1Ep0WG b9x+TYf6iUifC+NyrT4k/Ap9CXfN+yUJaeJ+io3K23a2/LMpz22RkmDBS2cp+140uSoGrrnnQW0uc9iY +7bEPrHrVMzj1/fK/GEP29/giAAh6D7N1kmz36PkG3 5vV/RMytgHfH/8mkqQX81IcBF7hJrNz4THba/2ugoc+NpHoQLW/sbdj0v/1fH1zhB2QzEhXqK5nyG1cS 3YPdNNgxl8Rnhd0Lm6U+j+6KV2lZ0woUsa/4Fc6b+Nsnwa4Rtyfd3Vp4eblit3kdDIt3/4Fr//4O21u/ 7a5Z7lHMEUTHbmol4QJiV/bnCBCzokuhn4Zy5mwb9A eZxiwHyBrskwDInJlK1ocBfbDFoi/Z10YZ+3bvCO/B7veZADsWI46ByvilL14geFvtPy/lNLWvaZJ9Mf CreIMAReESjM/5Ewg1RFPcS/zVT+hciO6Ry6mrqdZF5k2O/0r8dW8SZcOIqZkz/8zQ0fCdsN9kquE4+O 3FdHg1mz09gWpx/lFFe0KF0vZwoaX/GixjZzdC0LhF /vUOhP2PcF7BDjfv1LAzFE8XkObIAtvt9BENYBL1Py7MA6YN/+Dsz4D9FCN98uTGxWOj4z/fv7fZW++1 4M7sX74et11MhegBY1iwAk6tXI6k54C7O5jDaOuEVXiWsncoMoGQ+utciBll4ACO7riuMYt7t7HI3F0+ Dj+YX3tyRYg+u/iKnw4jE2As9OloCwTHjhhNQrhaF2 YlaSxjPSr7klcA5VA8qcMFrE5nshIzkG4PiQMV6KiWaIbEAq00BnR9v2PP0IRRIoMgZCG+2TNrKee3Dz IkS7I3vrkUXjTqvfql+KBiNxFLkozMJcvfvQ8zkqg20/79BiwHk6b4HPzjdalrC44ibT55XjEjbJeeTf y635d+IVnnUnXkGeO/WShKSMY4kXNqjRrySyDPshyX cS2oF67v+oaML3eVVYgZN/dYCG1im/77R7PX7kH6yeXyNJfT1Qokg3D7Sayr/on4MYsfE6XKHGlNr+5I Gm1ahSnStOf1mkhu/PP7mrK5v1+82w/90d86CESH/hnfibG/80NviHMuB3MoE/eHfgmRAewjEhPRB+iX [place]/cjeCXi+K0O0qFVU+CSCNkAXhFDOvUr/a14qD6H 7gjpZvBG/USB4sA5XuzOSkVjR08Zb+Ic3mW7DX3Lyft/cwWv/437d2P/eY4415Ub5btAGrNkNxFpp/Chelly [file] dhX1i3YRSzZPgcNC8zldZcOJQzYubgTf3exLX9CUUqJneQLx4Sd1KnzlG3ouKtTbUtAIv7ZnGfMR7I ID Date Data Source [id number] 04/11/2020 09:13:00 AM EST [facility] Name Value Range Interpretation Code Description Data Kathi rce(s) Supporting Document(s) Magnesium Level 2.2 [facility] ([facility]) ID Date Data Source [id number] 04/11/2020 09:13:00 AM EST [facility] Name Value Range Interpretation Code Description Data Kathi rce(s) Supporting Document(s) Sodium 138 [facility] ([facility]) Calcium [Mass/volume] in Serum or Plasma 9.2 [facility] ([facility]) Chloride [Moles/volume] in Serum or Plasma 106 [facility] ([facility]) Carbon dioxide, total [Moles/volume] in Serum or Plasma 25 [facility] ([facility]) Blood Urea Nitrogen 15 5-21 [facility] ([facility]) Potassium [Moles/volume] in Serum or Plasma 4.1 [facility] ([facility]) Glucose 94 70-100 [facility] Creatinine 0.68 0.6-1.5 [facility] ([facility]) Glomerular filtration rate/1.73 sq M.pre dicted [Volume Rate/Area] in Serum or Plasma by Creatinine-based formula (MDRD) 60.0 [facility] ([facility]) ID Date Data Source [id number] 04/11/2020 09:13:00 AM EST [facility] ([facility] Name Value Range Interpretation Code Description Data Kathi rce(s) Supporting Document(s) Alkaline phosphatase [Enzymatic activity/volume] in Serum or Plasma 1 04 [facility] ([facility]) Aspartate aminotransferase [Enzymatic activity/volume] in Serum or Plasma 49 [facility] ([facility]) Bilirubin.total [Mass/volume] in Serum or Plasma 0.7 [facility] ([facility]) Alanine aminotransferase [Enzymatic activity/volume] in Serum or Pl asma 76 [facility] ([facility]) Bilirubin.direct [Mass/volume] in Serum or Plasma 0.3 [facility] ([facility]) Protein [Mass/volume] in Serum or Plasma 6.0 [facility] ([facility]) Albumin [Mass/volume] in Serum or Plasma 3.4 [facility] ([facility]) Cholesterol [Mass/volume] in Serum or Plasma Laboratory test result [facility] ([facility]) ID Date Data Source [id number] 04/11/2020 09:13:00 AM EST [facility] ([facility]) Name Value Range Interpretation Code Description Data Kathi rce(s) Supporting Document(s) White Blood Count 10.1 4.3-10.9 [facility] ([facility]) Platelets 279 130-400 [facility] Red Blood Count 5.54 4.70-6.20 [facility] ([facility]) Hematocrit 51.3 39.0-50.0 [facility] ([facility]) Hemoglobin 17.7 13.0-17.0 [facility] ([facility]) ID Date Data Source [id number] 04/10/2020 01:21:00 PM EST [facility] Name Value Range Interpretation Code Description Data Kathi rce(s) Supporting Document(s) SARS coronavirus 2 RNA [Presence] in Res piratory specimen by RISHABH with probe detection [facility] This lab was ordered by [facility] a nd reported by [facility]. ID Date Data Source [id number] 04/10/2020 12:55:00 PM EST [facility] ([facility]) Name Value Range Interpretation Code Description Data Kathi rce(s) Supporting Document(s) White Blood Count 5.9 10 4.0-10.0 Normal (applies to non-numeri c results) [facility] ([facility]) Red Blood Count 5.60 10 4.00-5.40 Above high normal [facility] ([facility]) Hematocrit 53.3 % 36.0-47.0 Above high normal [facility]) Hemoglobin 17.4 g/dL 12.0-15.5 Above high normal [facility] ([facility]) Mean Corpuscular HGB Conc 32.6 g/dL 32.0-36.5 Normal (applies to non-numeric results) [facility]) Mean Corpuscular Hemoglobin 31.1 pg 27.0-33.0 Norm al (applies to non-numeric results) [facility] ([facility]) Mean Corpuscular Volume 95.2 fl 80.0-96.0 Normal ( applies to non-numeric results) [facility] ([facility]) Red Cell Distribution Width 12.2 % 11.5-14.5 Norm al (applies to non-numeric results) [facility] ([facility]) Platelet Count, Automated 263 10 150-450 Normal (applies to non-numeric results) [facility] ([facility]) Nucleated Red Blood Cell % 0.0 % 0-0 Normal (applies to n on-numeric results) [facility] ([facility]) ID Date Data Source [id number] 04/10/2020 12:55:00 PM EST [facility] ([facility]) Name Value Range Interpretation Code Description Data Kathi rce(s) Supporting Document(s) Glucose, Fasting 84 mg/dL 70-100 Normal (applies to non-numeric results) [facility]) Blood Urea Nitrogen 17 mg/dL 7-18 Normal (applies to non-nume kelly results) [facility] ([facility]) Creatinine For GFR 0.69 mg/dL 0.55-1.30 Normal (applies to non -numeric results) [facility] ([facility]) Sodium Level 141 meq/L 136-145 Normal (applies to non-numeric res ults) [facility] ([facility]) Glomerular Filtration Rate Laboratory test result Normal (applies to non- numeric results) [facility] ([facility]) <content>Units are mL/min/1.73 m2</content>
<content></content>
<content>Chronic Kidney Disease Staging per NKF:</content>
<content></content>
<content>Stage I & II GFR >=60 Normal to Mildly Decreased</content>
<content>Stage III GFR 30- 59 Moderately Decreased</content>
<content>Stage IV GFR 15-29 Severely Decreased</content>
<content>Stage V GFR <15 Very Little GFR Left</content>
<content>ESRD GFR <15 on HOUSEKEEPER/CUSTODIAN/LAUNDRY WORKER</content>
<content></content> Chloride Level 107 meq/L 98-107 Normal (applies to non-numeric r esults) [facility] ([facility]) Potassium Serum 4.0 meq/L 3.5-5.1 Normal (applies to non-numeric results) [facility] ([facility]) Carbon Dioxide Level 27 meq/L 21-32 Normal (applies to non-num pop results) [facility] ([facility]) Calcium Level 8.6 mg/dL 8.8-10.2 Below low normal [facility] ([facility]) Ast/Sgot 40 U/L 7-37 Above high normal [facility] ([facility]) Anion Gap 7 meq/L 8-16 Below low normal [facility] ( [facility]) Alkaline Phosphatase 95 U/L 45-117 Normal (applies to non-num pop results) [facility] Alt/SGPT 69 U/L 12-78 Normal (applies to non-numeric resul ts) [facility] ([facility]) Bilirubin,Total 0.5 mg/dL 0.2-1.0 Normal (applies to non-numeric results) [facility] Total Protein 5.7 GM/DL 6.4-8.2 Below low normal [facility] ([facility]) Albumin 3.4 GM/DL 3.2-5.2 Normal (applies to non-numeric resul ts) [facility] ([facility]) Albumin/Globulin Ratio 1.5 1.2-2.2 Normal (applies to non-n umeric results) [facility] ([facility]) ID Date Data Source [id number] 04/10/2020 12:55:00 PM EST [facility] ([facility]) Name Value Range Interpretation Code Description Data Kathi rce(s) Supporting Document(s) CPK Creatine Phosphokinase 47 U/L 26-192 Queenie l (applies to non-numeric results) [facility] ([facility]) CK-MB Value Mass 1.2 ng/mL Normal (applies to non-numeric results) [facility] ([facility]) Troponin I Laboratory test result Normal (applies to non-n umeric results) [facility]) <content>Troponin I Reference Interval f or Siemens [place] LOCI:</content>
<content></content>
<content>99th Percentile= 0.00-0.045 ng/ml</content>
<content></content>
<content>Risk Stratification:</content>
<content><= 0.10 ng/ml Decreased Risk for Adverse Clinical</content>
<content>Events.</content>
<content>0.10-1.50 ng/ml Increased Risk for Adverse Clinical</content>
<content>Events. Evaluation of additional</content>
<content>criterion and/or repeat testing in 2-6</content>
<content>hours is suggested to rule out myocardial</content>
<content>damage.</content>
<content>>= 1.50 ng/ml Indicative of Myocardial Injury.</content>
<content></content> MB/CK Relative Index 2.55 Normal (applies to non-num pop results) [facility]) <content>DIAGNOSIS CRITERIA</content>
<content>MMB ng/ml Relative Index (RI)</content>
<content>NON-AMI < or = 5 N/A</content>
<content>NGUYEN ZONE > 5 < or = 4</content>
<content>AMI > 5 > 4</content>
<content></content> ID Date Data Source [id number] 04/10/2020 08:45:00 AM EST [facility] ([facility]) Name Value Range Interpretation Code Description Data Kathi rce(s) Supporting Document(s) Laboratory test finding (navigational concept) 1.3 Normal (applies to non- numeric results) [facility] ([facility]) Laboratory test finding (navigational concept) 15.8 s 1 2.1-14.4 Above high normal [facility] ([facility]) ID Date Data Source [id number] 04/10/2020 08:34:00 AM EST [facility] ([facility]) Name Value Range Interpretation Code Description Data Kathi rce(s) Supporting Document(s) Laboratory test finding (navigational concept) 0.00 ng/mL 0 .00-0.08 Normal (applies to non-numeric results) [facility] ([facility]) ID Date Data Source [id number] 04/10/2020 08:33:00 AM EST [facility] ([facility]) Name Value Range Interpretation Code Description Data Kathi rce(s) Supporting Document(s) Laboratory test finding (navigational concept) 50.0 % 3 8.0-51.0 Normal (applies to non-numeric results) [facility] ([facility]) Laboratory test finding (navigational concept) 4.1 meq/L 3 .5-5.1 Normal (applies to non-numeric results) [facility] ([facility]) Laboratory test finding (navigational concept) 140 meq/L 1 36-145 Normal (applies to non-numeric results) [facility] ([facility]) Laboratory test finding (navigational concept) 132 mg/dL 7 0-105 Above high normal [facility] ([facility]) Laboratory test finding (navigational concept) 4.7 mg/dL 4 .5-5.3 Normal (applies to non-numeric results) [facility] ([facility]) Laboratory test finding (navigational concept) 101 meq/L 9 8-109 Normal (applies to non-numeric results) [facility] ([facility]) Laboratory test finding (navigational concept) 29.0 MM/L 2 3.0-27.0 Above high normal [facility] ([facility]) Laboratory test finding (navigational concept) 0.8 mg/dL 0 .6-1.3 Normal (applies to non-numeric results) [facility] ([facility]) Laboratory test finding (navigational concept) 20 mg/dL 8 -26 Normal (applies to non-numeric results) [facility] ([facility]) ID Date Data Source [id number] 04/10/2020 08:30:00 AM EST [facility] ([facility]) Name Value Range Interpretation Code Description Data Kathi rce(s) Supporting Document(s) Hemoglobin 17.4 g/dL 12.0-15.5 Above high normal [facility] ([facility]) Red Blood Count 5.60 10 4.00-5.40 Above high normal ME DENT ([facility]) White Blood Count 5.9 10 4.0-10.0 Normal (applies to non-numeri c results) [facility] ([facility]) Hematocrit 53.3 % 36.0-47.0 Above high normal [facility] ([facility]) Mean Corpuscular Volume 95.2 fl 80.0-96.0 Normal ( applies to non-numeric results) [facility] ([facility]) Mean Corpuscular Hemoglobin 31.1 pg 27.0-33.0 Norm al (applies to non-numeric results) [facility]) Red Cell Distribution Width 12.2 % 11.5-14.5 Norm al (applies to non-numeric results) [facility] ([facility]) Platelet Count, Automated 263 10 150-450 Normal (applies to non-numeric results) [facility] ([facility]) Mean Corpuscular HGB Conc 32.6 g/dL 32.0-36.5 Normal (applies to non-numeric results) [facility]) Nucleated Red Blood Cell % 0.0 % 0-0 Normal (applies to n on-numeric results) [facility] ([facility]) ID Date Data Source [id number] 04/10/2020 08:30:00 AM EST MED[facility] ([facility]) Name Value Range Interpretation Code Description Data Kathi rce(s) Supporting Document(s) Thyrotropin [Units/volume] in Serum or Plasma 2.030 uIU/ML 0. 358-3.740 Normal (applies to non-numeric results) [facility] ([facility]) ID Date Data Source [id number] 04/07/2020 11:45:00 AM EST MED[facility] ([facility]) Name Value Range Interpretation Code Description Data Kathi rce(s) Supporting Document(s) EKG Laboratory test result [facility] ([facility]) ID Date Data Source [id number] 04/03/2020 10:53:00 AM EST [facility] ([facility] Name Value Range Interpretation Code Description Data Kathi rce(s) Supporting Document(s) Magnesium Level 2 [facility] ([facility]) ID Date Data Source [id number] 04/03/2020 10:53:00 AM EST [facility] ([facility] Name Value Range Interpretation Code Description Data Kathi rce(s) Supporting Document(s) Alanine aminotransferase [Enzymatic activity/volume] in Serum or Pl asma 61 [facility] ([facility]) Calcium [Mass/volume] in Serum or Plasma 8.6 [facility] ([facility]) Albumin [Mass/volume] in Serum or Plasma 3.3 [facility] ([facility]) Carbon dioxide, total [Moles/volume] in Serum or Plasma 27 [facility] ([facility]) Alkaline phosphatase [Enzymatic activity/volume] in Serum or Plasma 9 7 [facility] ([facility]) Potassium [Moles/volume] in Serum or Plasma 4.4 [facility] ([facility]) Chloride [Moles/volume] in Serum or Plasma 104 [facility] ([facility]) Protein [Mass/volume] in Serum or Plasma 5.8 [facility] ([facility]) Sodium 139 [facility] ([facility]) Urea nitrogen [Mass/volume] in Serum or Plasma 26 [facility] ([facility]) Aspartate aminotransferase [Enzymatic activity/volume] in Serum or Plasma 30 [facility] ([facility]) Glucose 86 70-100 [facility] ([facility]) Creatinine For GFR 0.81 [facility] ([facility]) ID Date Data Source [id number] 04/03/2020 10:53:00 AM EST [facility] ([facility]) Name Value Range Interpretation Code Description Data Kathi rce(s) Supporting Document(s) White Blood Count 7.7 4.3-10.9 [facility] ([facility]) Red Blood Count 5.34 4.70-6.20 [facility] ([facility]) Platelets 268 130-400 [facility] Hemoglobin 17.1 13.0-17.0 [facility] ([facility]) Hematocrit 50.9 39.0-50.0 [facility] ([facility]) ID Date Data Source [id number] 04/02/2020 04:00:00 AM EST [facility] Name Value Range Interpretation Code Description Data Kathi rce(s) Supporting Document(s) SARS coronavirus 2 RNA [Presence] in Res piratory specimen by RISHABH with probe detection [facility] This lab was ordered by [facility] a nd reported by [facility]. ID Date Data Source [id number] 03/30/2020 06:13:00 PM EST MED[facility] ([facility]) Name Value Range Interpretation Code Description Data Kathi rce(s) Supporting Document(s) Thyrotropin [Units/volume] in Serum or Plasma 2.050 uIU/ML 0. 358-3.740 Normal (applies to non-numeric results) [facility] ([facility]) Thyroxine (T4) free [Mass/volume] in Serum or Plasma 1.30 ng/dL 0.76-1.46 Normal (applies to non-numeric results) [facility] ([facility]) Digoxin [Mass/volume] in Serum or Plasma 0.1 ng/mL 0.5-2.0 Below low normal [facility] ([facility]) ID Date Data Source [id number] 03/30/2020 06:13:00 PM EST [facility] ([facility]) Name Value Range Interpretation Code Description Data Kathi rce(s) Supporting Document(s) Glucose, Fasting 80 mg/dL 70-100 Normal (applies to non-numeric results) [facility] ([facility]) Blood Urea Nitrogen 22 mg/dL 7-18 Above high normal [facility] ([facility]) Creatinine For GFR 0.84 mg/dL 0.55-1.30 Normal (applies to non -numeric results) [facility] ([facility]) Glomerular Filtration Rate Laboratory test result Normal (applies to non- numeric results) [facility] ([facility]) <content>Units are mL/min/1.73 m2</content>
<content></content>
<content>Chronic Kidney Disease Staging per NKF:</content>
<content></content>
<content>Stage I & II GFR >=60 Normal to Mildly Decreased</content>
<content>Stage III GFR 30- 59 Moderately Decreased</content>
<content>Stage IV GFR 15-29 Severely Decreased</content>
<content>Stage V GFR <15 Very Little GFR Left</content>
<content>ESRD GFR <15 on HOUSEKEEPER/CUSTODIAN/LAUNDRY WORKER</content>
<content></content> Sodium Level 141 meq/L 136-145 Normal (applies to non-numeric res ults) [facility] ([facility]) Chloride Level 108 meq/L 98-107 Above high normal [facility] ([facility]) Potassium Serum 4.1 meq/L 3.5-5.1 Normal (applies to non-numeric results) [facility] ([facility]) Anion Gap 4 meq/L 8-16 Below low normal [facility] ( [facility]) Carbon Dioxide Level 29 meq/L 21-32 Normal (applies to non-num pop results) [facility] ([facility]) Calcium Level 8.7 mg/dL 8.8-10.2 Below low normal MEDEN T ([facility]) ID Date Data Source [id number] 03/30/2020 06:13:00 PM EST [facility] ([facility]) Name Value Range Interpretation Code Description Data Kathi rce(s) Supporting Document(s) Ast/Sgot 63 U/L 7-37 Above high normal [facility] ([facility]) Bilirubin,Total 0.6 mg/dL 0.2-1.0 Normal (applies to non-numeric results) [facility] ([facility]) Alt/SGPT 100 U/L 12-78 Above high normal [facility] ([facility]) Alkaline Phosphatase 103 U/L 45-117 Normal (applies to non-num opp results) [facility] ([facility]) Bilirubin,Direct 0.2 mg/dL 0.0-0.2 Normal (applies to non-numeric results) [facility] ([facility]) Total Protein 6.1 GM/DL 6.4-8.2 Below low normal MEDEN T ([facility]) Albumin/Globulin Ratio 1.4 1.2-2.2 Normal (applies to non-n umeric results) [facility] ([facility]) Albumin 3.6 GM/DL 3.2-5.2 Normal (applies to non-numeric resul ts) [facility] ([facility]) ID Date Data Source [id number] 03/30/2020 06:13:00 PM EST [facility] ([facility]) Name Value Range Interpretation Code Description Data Kathi rce(s) Supporting Document(s) CK-MB Value Mass 3.0 ng/mL Normal (applies to non-numeric results) [facility] ([facility]) CPK Creatine Phosphokinase 82 U/L 26-192 Queenie l (applies to non-numeric results) [facility] ([facility]) Troponin I Laboratory test result Normal (applies to non-n umeric results) [facility] ([facility]) <content>Troponin I Reference Interval f or Siemens [place] LOCI:</content>
<content></content>
<content>99th Percentile= 0.00-0.045 ng/ml</content>
<content></content>
<content>Risk Stratification:</content>
<content><= 0.10 ng/ml Decreased Risk for Adverse Clinical</content>
<content>Events.</content>
<content>0.10-1.50 ng/ml Increased Risk for Adverse Clinical</content>
<content>Events. Evaluation of additional</content>
<content>criterion and/or repeat testing in 2-6</content>
<content>hours is suggested to rule out myocardial</content>
<content>damage.</content>
<content>>= 1.50 ng/ml Indicative of Myocardial Injury.</content>
<content></content> MB/CK Relative Index 3.66 Normal (applies to non-num pop results) [facility] ([facility]) <content>DIAGNOSIS CRITERIA</content>
<content>MMB ng/ml Relative Index (RI)</content>
<content>NON-AMI < or = 5 N/A</content>
<content>NGUYEN ZONE > 5 < or = 4</content>
<content>AMI > 5 > 4</content>
<content></content> ID Date Data Source [id number] 03/30/2020 06:13:00 PM EST MED[facility] ([facility]) Name Value Range Interpretation Code Description Data Kathi rce(s) Supporting Document(s) aPTT in Platelet poor plasma by Coagulation assay 30.0 s 24.2-38.5 Normal (applies to non-numeric results) [facility] ([facility]) ID Date Data Source [id number] 03/30/2020 06:13:00 PM EST [facility] ([facility]) Name Value Range Interpretation Code Description Data Kathi rce(s) Supporting Document(s) Prothrombin Time 14.3 s 12.5-14.3 Above high normal [facility]) Inr 1.09 Normal (applies to non-numeric resul ts) [facility] ([facility]) THERAPUTIC HUMAN INR VALUES INDICATIONS NORMAL RANGES PROPHYLAXIS/TREATMENT OF: VENOUS THROMBOSIS 2.0-3.0 PULMONARY EMBOLISM 2.0-3.0 PREVENTION OF SYSTEMIC EMBOLISM FROM: TISSUE HEART VALVES 2.0-3.0 ACUTE MYOCARDIAL INFARCTION 2.0-3.0 VALVULAR HEART DISEASE 2.0-3.0 ATRIAL FIBRILLATION 2.0-3.0 MECHANICAL VALVES(HIGH RISK) 2.5-3.5 RECURRENT MYOCARDIAL INFARCTION 2.5-3.5 ID Date Data Source [id number] 03/30/2020 06:13:00 PM EST [facility] ([facility]) Name Value Range Interpretation Code Description Data Kathi rce(s) Supporting Document(s) Red Blood Count 5.01 10 4.00-5.40 Normal (applies to non-numeric results) [facility] ([facility]) White Blood Count 10.1 10 4.0-10.0 Above high normal [facility] ([facility]) Hematocrit 48.1 % 36.0-47.0 Above high normal [facility] ([facility]) Mean Corpuscular Volume 96.0 fl 80.0-96.0 Normal ( applies to non-numeric results) [facility] ([facility]) Hemoglobin 16.3 g/dL 12.0-15.5 Above high normal [facility] ([facility]) Mean Corpuscular HGB Conc 33.9 g/dL 32.0-36.5 Normal (applies to non-numeric results) [facility] ([facility]) Mean Corpuscular Hemoglobin 32.5 pg 27.0-33.0 Norm al (applies to non-numeric results) [facility] ([facility]) Red Cell Distribution Width 12.6 % 11.5-14.5 Norm al (applies to non-numeric results) [facility] ([facility]) Lymph % 16.2 % 24.0-44.0 Below low normal [facility] ( [facility]) Neutrophils % 74.0 % 36.0-66.0 Above high normal MEDE NT ([facility]) Platelet Count, Automated 259 10 150-450 Normal (applies to non-numeric results) [facility] ([facility]) Eos % 0.1 % 0.0-3.0 Normal (applies to non-numeric resul ts) [facility] ([facility]) [place] % 9.0 % 0.0-5.0 Above high normal [facility] ([facility]) Immature Granulocyte % 0.3 % 0-3.0 Normal (applies to non-n umeric results) [facility] ([facility]) Baso % 0.4 % 0.0-1.0 Normal (applies to non-numeric resul ts) [facility] ([facility]) Nucleated Red Blood Cell % 0.0 % 0-0 Normal (applies to n on-numeric results) [facility] ([facility]) Neutrophils # 7.5 10 1.5-8.5 Normal (applies to non-numeric re sults) [facility] ([facility]) [place] # 0.9 10 0.0-0.8 Above high normal [facility] ([facility]) Lymph # 1.6 10 1.5-5.0 Normal (applies to non-numeric resul ts) [facility] ([facility]) Eos # 0.0 10 0.0-0.5 Normal (applies to non-numeric resul ts) [facility] ([facility]) Baso # 0.0 10 0.0-0.2 Normal (applies to non-numeric resul ts) [facility] ([facility]) ID Date Data Source [id number] 03/30/2020 06:11:00 PM EST [facility] ([facility]) Name Value Range Interpretation Code Description Data Kathi rce(s) Supporting Document(s) Ethanol [Mass/volume] in Serum or Plasma 0.003 % 0.000-0 .010 Normal (applies to non-numeric results) [facility] ([facility]) Magnesium [Mass/volume] in Serum or Plasma 2.3 mg/dL 1.8-2 .4 Normal (applies to non-numeric results) [facility] ([facility]) ID Date Data Source [id number] 10/18/2019 11:04:00 AM EDT [facility] ([facility] Name Value Range Interpretation Code Description Data Kathi rce(s) Supporting Document(s) Alanine aminotransferase [Enzymatic activity/volume] in Serum or Pl asma 66 [facility] ([facility]) Albumin [Mass/volume] in Serum or Plasma 3.7 [facility] ([facility]) Carbon dioxide, total [Moles/volume] in Serum or Plasma 27 [facility] ([facility]) Chloride [Moles/volume] in Serum or Plasma 109 [facility] ([facility]) Calcium [Mass/volume] in Serum or Plasma 8.9 [facility] ([facility]) Alkaline phosphatase [Enzymatic activity/volume] in Serum or Plasma 8 1 [facility] ([facility]) Aspartate aminotransferase [Enzymatic activity/volume] in Serum or Plasma 33 [facility] ([facility]) Sodium 143 [facility] ([facility]) Protein [Mass/volume] in Serum or Plasma 6.4 [facility] ([facility]) Potassium [Moles/volume] in Serum or Plasma 4.4 [facility] ([facility]) Creatinine For GFR 0.76 [facility] ([facility]) Urea nitrogen [Mass/volume] in Serum or Plasma 14 [facility] ([facility]) Glucose 90 70-100 [facility] ([facility]) ID Date Data Source [id number] 10/18/2019 11:04:00 AM EDT [facility] ([facility] Name Value Range Interpretation Code Description Data Kathi rce(s) Supporting Document(s) White Blood Count 5.5 4.0-10.0 [facility] ([facility]) Hematocrit 44.0 [facility] ([facility]) Hemoglobin 14.6 [facility] ([facility]) Platelets 245 150-450 [facility] ([facility]) Red Blood Count 4.72 4.00-5.40 [facility] ([facility]) ID Date Data Source [id number] 08/30/2019 10:18:00 AM EDT [facility] ([facility]) Name Value Range Interpretation Code Description Data Kathi rce(s) Supporting Document(s) Tibc % Saturation 52.4 [facility] ([facility]) Iron binding capacity [Mass/volume] in Serum or Plasma 292 [facility] ([facility]) Iron 153 50-170 [facility] ([facility]) ID Date Data Source [id number] 07/29/2019 10:16:00 AM EDT [facility] ([facility]) Name Value Range Interpretation Code Description Data Kathi rce(s) Supporting Document(s) Tibc % Saturation 40.3 [facility] ([facility]) Iron 129 50-170 [facility] ([facility] Iron binding capacity [Mass/volume] in Serum or Plasma 320 [facility] ([facility]) ID Date Data Source [id number] 07/29/2019 10:16:00 AM EDT [facility] ([facility]) Name Value Range Interpretation Code Description Data Kathi rce(s) Supporting Document(s) White Blood Count 8.8 4.0-10.0 [facility] ([facility]) Platelets 260 150-450 [facility] ([facility]) Red Blood Count 4.81 4.0-5.40 [facility] ([facility]) Hematocrit 44.8 [facility] ([facility]) Hemoglobin 15.6 [facility] ([facility]) ID Date Data Source [id number] 07/02/2019 10:08:00 AM EDT [facility] Name Value Range Interpretation Code Description Data Kathi rce(s) Supporting Document(s) Red Blood Count 4.92 4.00-5.40 [facility] ([facility]) White Blood Count 6.4 4.0-10.0 [facility] ([facility]) Hematocrit 46.3 [facility] ([facility]) Platelets 297 150-450 [facility] ([facility]) Hemoglobin 15.5 [facility] ([facility]) ID Date Data Source [id number] 07/02/2019 10:08:00 AM EDT [facility] Name Value Range Interpretation Code Description Data Kathi rce(s) Supporting Document(s) Albumin [Mass/volume] in Serum or Plasma 3.8 [facility] ([facility]) Calcium [Mass/volume] in Serum or Plasma 9.3 [facility] ([facility]) Chloride [Moles/volume] in Serum or Plasma 107 [facility] ([facility]) Carbon dioxide, total [Moles/volume] in Serum or Plasma 32 [facility] ([facility]) Alanine aminotransferase [Enzymatic activity/volume] in Serum or Pl asma 90 [facility] ([facility]) Potassium [Moles/volume] in Serum or Plasma 4.2 [facility] ([facility]) Protein [Mass/volume] in Serum or Plasma 6.8 [facility] ([facility]) Alkaline phosphatase [Enzymatic activity/volume] in Serum or Plasma 9 0 [facility] ([facility]) Urea nitrogen [Mass/volume] in Serum or Plasma 19 [facility] ([facility]) Sodium 142 [facility] Glucose 79 70-100 [facility] ([facility] Aspartate aminotransferase [Enzymatic activity/volume] in Serum or Plasma 41 [facility] ([facility]) Creatinine For GFR 0.86 [facility] ([facility]) Procedure Social History Code Duration Value Status Description Data Source(s ) Smoking 04/19/2020 12:00:00 AM EST Patient is a former smoker completed Patient is a former smoker [facility] Alcohol intake 04/13/2020 12:00:00 AM EST Not Currently completed [facility] Smoking 04/13/2020 12:00:00 AM EST Former smoker completed Former smoker [facility] Vital Signs ID Date Data Source [id number] Name Value Range Interpretation Code Description Data Source(s) [employer] body weight 115 [lb_av] 115 [lb_av] [facility] T ([facility]) Oxygen saturation in Arterial blood by Pulse oximetry 98 % 98 % [facility] ([facility]) Body temperature 97.8 [degF] 97.8 [degF] [facility] ([facility]) Respiratory rate 18 /min 18 /min [facility] ( [facility]) Heart rate 57 /min 57 /min [facility] ([facility]) Body mass index (BMI) [Ratio] 23.1 kg/m2 23.1 k g/m2 [facility] ([facility]) Body weight 130.38 [lb_av] 130.38 [lb_av] [facility] T ([facility]) Body height 63 [in_i] 63 [in_i] [facility] ([facility]) 5'3" Diastolic blood pressure 84 mm[Hg] 84 mm[Hg] [facility] ([facility]) Systolic blood pressure 148 mm[Hg] 148 mm[Hg] M SHE[facility] ([facility]) Diastolic blood pressure--sitting 86 mm[Hg] 86 mm[Hg] [facility] ([facility]) CBP, adult cuff/LA Systolic blood pressure--sitting 164 mm[Hg] 164 mm[Hg] [facility] ([facility]) CBP, adult cuff/LA Heart rate 51 /min 51 /min [facility] ([facility]) Body mass index (BMI) [Ratio] 23.0 kg/m2 23.0 k g/m2 [facility] ([facility]) Body height 63 [in_i] 63 [in_i] [facility] ([facility]) 5'3" Body weight 130.00 [lb_av] 130.00 [lb_av] [facility] T ([facility]) Oxygen saturation in Arterial blood by Pulse oximetry 97 % 97 % [facility] Respiratory rate 16 /min 16 /min [facility] Body temperature 36.67 Haley 36.67 Haley [facility] Heart rate 62 /min 62 /min [facility] Diastolic blood pressure 88 mm[Hg] 88 mm[Hg] [facility] Systolic blood pressure 150 mm[Hg] 150 mm[Hg] [facility] Body mass index (BMI) [Ratio] 23.03 kg/m2 23.03 kg/m2 [facility] Body weight 58.968 kg 58.968 kg [facility] Body height 160 cm 160 cm [facility] Systolic blood pressure 124 mm[Hg] 124 mm[Hg] M SHELLEY ([facility]) [place] body weight 115 [lb_av] 115 [lb_av] MEDEN T ([facility]) Oxygen saturation in Arterial blood by Pulse oximetry 98 % 98 % [facility] ([facility]) Body temperature 98.1 [degF] 98.1 [degF] [facility] ([facility]) Respiratory rate 18 /min 18 /min [facility] ( [facility]) Heart rate 63 /min 63 /min [facility] ([facility]) Body mass index (BMI) [Ratio] 23.4 kg/m2 23.4 k g/m2 [facility] ([facility]) Body weight 132.25 [lb_av] 132.25 [lb_av] MEDEN T ([facility]) Body height 63 [in_i] 63 [in_i] MEDENT ([facility]) 5'3" Diastolic blood pressure 74 mm[Hg] 74 mm[Hg] [facility] ([facility]) Diastolic blood pressure--sitting 78 mm[Hg] 78 mm[Hg] [facility] ([facility]) Systolic blood pressure--sitting 130 mm[Hg] 130 mm[Hg] [facility] ([facility]) Heart rate 67 /min 67 /min [facility] ([facility] Body mass index (BMI) [Ratio] 24.3 kg/m2 24.3 k g/m2 [facility] ([facility]) Body height 63 [in_i] 63 [in_i] [facility] ([facility] 5'3" Body weight 137.00 [lb_av] 137.00 [lb_av] MEDEN T ([facility]) [place] body weight 115 [lb_av] 115 [lb_av] MED[facility] T ([facility]) Oxygen saturation in Arterial blood by Pulse oximetry 98 % 98 % [facility] ([facility]) Body temperature 98.8 [degF] 98.8 [degF] [facility] ([facility]) Respiratory rate 18 /min 18 /min [facility] ( [facility]) Heart rate 77 /min 77 /min [facility] ([facility]) Body mass index (BMI) [Ratio] 24.7 kg/m2 24.7 k g/m2 [facility] ([facility]) Body weight 139.50 [lb_av] 139.50 [lb_av] MED[facility] T ([facility]) Body height 63 [in_i] 63 [in_i] [facility] ([facility]) 5'3" Diastolic blood pressure 74 mm[Hg] 74 mm[Hg] [facility] ([facility]) Systolic blood pressure 128 mm[Hg] 128 mm[Hg] M EDENT ([facility]) [place] body weight 115 [lb_av] 115 [lb_av] [facility] T ([facility]) Oxygen saturation in Arterial blood by Pulse oximetry 99 % 99 % [facility] ([facility]) Body temperature 98.1 [degF] 98.1 [degF] [facility] ([facility]) Respiratory rate 18 /min 18 /min [facility] ( [facility]) Heart rate 70 /min 70 /min [facility] ([facility]) Body mass index (BMI) [Ratio] 24.4 kg/m2 24.4 k g/m2 [facility] ([facility]) Body weight 137.50 [lb_av] 137.50 [lb_av] MED[facility] T ([facility]) Body height 63 [in_i] 63 [in_i] [facility] ([facility]) 5'3" Diastolic blood pressure 78 mm[Hg] 78 mm[Hg] [facility] ([facility]) Systolic blood pressure 132 mm[Hg] 132 mm[Hg] M EDENT ([facility]) Oxygen saturation in Arterial blood by Pulse oximetry 100 % 100 % [facility] ([facility]) Body temperature 97.9 [degF] 97.9 [degF] [facility] ([facility]) Respiratory rate 18 /min 18 /min [facility] ( [facility]) Heart rate 53 /min 53 /min [facility] ([facility]) Body mass index (BMI) [Ratio] 24.2 kg/m2 24.2 k g/m2 [facility] ([facility]) Body weight 136.38 [lb_av] 136.38 [lb_av] [facility] T ([facility]) Body height 63 [in_i] 63 [in_i] [facility] ([facility]) 5'3" Diastolic blood pressure 80 mm[Hg] 80 mm[Hg] [facility] ([facility]) Systolic blood pressure 136 mm[Hg] 136 mm[Hg] M EDENT ([facility]) Diastolic blood pressure--sitting 68 mm[Hg] 68 mm[Hg] [facility] ([facility]) adult cuff, Ra Systolic blood pressure--sitting 120 mm[Hg] 120 mm[Hg] [facility] ([facility]) adult cuff, Ra Heart rate 71 /min 71 /min [facility] ([facility]) Body mass index (BMI) [Ratio] 23.7 kg/m2 23.7 k g/m2 [facility] ([facility]) Body height 63 [in_i] 63 [in_i] [facility] ([facility]) 5'3" Body weight 134.00 [lb_av] 134.00 [lb_av] MEDEN T ([facility]) Oxygen saturation in Arterial blood by Pulse oximetry 99 % 99 % [facility]) Body temperature 98.1 [degF] 98.1 [degF] [facility] ([facility]) Respiratory rate 18 /min 18 /min [facility] ( [facility]) Heart rate 49 /min 49 /min [facility] ([facility]) Body mass index (BMI) [Ratio] 23.8 kg/m2 23.8 k g/m2 [facility] ([facility]) Body weight 134.25 [lb_av] 134.25 [lb_av] MED[facility] T ([facility]) Body height 63 [in_i] 63 [in_i] [facility] ([facility]) 5'3" Diastolic blood pressure 64 mm[Hg] 64 mm[Hg] [facility] ([facility]) Systolic blood pressure 132 mm[Hg] 132 mm[Hg] M EDENT ([facility]) Patient Treatment Plan of Care Planned Activity Planned Date Details Description Data Source (s) Amlodipine 5 MG Oral Tablet 04/14/2020 12:00:00 AM [facility] rivaroxaban 20 MG Oral Tablet 04/13/2020 12:00:00 AM [facility] rivaroxaban 15 MG Oral Tablet [facility] Diltiazem Hydrochloride 30 MG Oral Tablet [facility] Atenolol [address] [facility]
[2020-05-30 20:19] LABS: BLOOD UREA NITROGEN 20 MG/DL (7-18); CALCIUM LEVEL 8.8 MG/DL (8.8-10.2); CARBON DIOXIDE LEVEL 24 MEQ/L (21-32); CHLORIDE LEVEL 108 MEQ/L (98-107); CK-MB VALUE MASS 1.2 NG/ML (<3.6); CPK CREATINE PHOSPHOKINASE 64 U/L (26-192); CREATININE FOR GFR 0.87 MG/DL (0.55-1.30); GLOMERULAR FILTRATION RATE > 60.0 (>45); GLUCOSE, FASTING 99 MG/DL (70-100); MB/CK RELATIVE INDEX 1.88 (< OR =4); POTASSIUM SERUM 3.9 MEQ/L (3.5-5.1); SODIUM LEVEL 142 MEQ/L (136-145); TROPONIN I < 0.02 NG/ML (< 0.10)
[2020-05-30] MEDS ORDERED: FLECAINIDE 50MG TABLET PO STA (20:22)
[2020-05-30] MEDS ORDERED: bisoproloL fumarate 5 MG TAB PO ONE (20:30)
[2020-05-30] MEDS ORDERED: SIMETHICONE 40MG/0.6ML DROPS 30ML PO ONE (21:00)
[2020-05-30] MEDS ORDERED: ACETAMINOPHEN TAB 650MG DOSE (2X325MG) PO PRN (23:45)
[2020-05-30] MEDS ORDERED: MOM 30ML SUSPENSION UDC PO PRN (23:45)
[2020-05-30] MEDS ORDERED: MAALOX 30 ML SUSP *UDC PO PRN (23:45)
--- NOTE | 2020-05-30 23:48 | HPEPDOC ---
[facility] Medical History & Physical Date of Admission May 30, 2020 Date of Service: May 30, 2020 Primary Care Physician: DAVE AMBROSE DO Attending Physician: ROSSANA HERNÁNDEZ MD History and Physical TIME OF SERVICE 1150PM CHIEF COMPLAINT: palpitations HISTORY OF PRESENT ILLNESS: This 65 yr old F has a hx of A. flutter that was managed with ablation that was done at [facility], despite ablation she subsequently developed A fib; has referred her to () in [place]. For several months she has been having episodes of right upper abdominal/ lower chest pain that is followed by a "burst" sensation that moves to the left of the chest which is subsequently f ollowed by palpitations. Early this morning she felt dizzy and shaky; she checked her pulse and thought that it was low therefore she came to the ER for evaluation and was found to be in Afib with RVR. She was told that her pulse appeared to be low because the pulse oximeter was not capturing all of the heart beats. The ER providers commission broker discussed the case with who recommended giving her 100mg of Flecanide. Shortly thereafter she was sent home, but at about 3PM she felt light headed, short of breath and tired therefore she came back to the ER where she was again found to be in RVR. consulted who recommended giving a second dose of 100mg of flecainide and 5mg bisoprolol. At the time of my evaluation she reported feeling better and was rate controlled but requested admission for observation. ROS: negative except as listed in HPI PMH/PSH: Longstanding persistent atria fibrillation Biatrial enlargement Hx of A. 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 HOME MEDICATIONS: Please see below. PHYSICAL EXAMINATION: Vital Signs Date Time Temp Pulse Resp B/P (MAP) Pulse Ox O2 Delivery O2 Flow Rate FiO2 05/30/20 19:13 99.2 142 20 98 Room Air 05/30/20 19:13 171/108 GENERAL APPEARANCE: Well nourished / well developed/ NAD INTEGUMENT: no facial flushing HEENT: EOMI / lower face covered with mask CARDIOVASCULAR: RRR/ NMRG LUNGS: CTAB on RA ABDOMEN: flat MUSCULOSKELETAL: NCAT/ RAÚL x 4 / no lower leg swelling NEUROLOGICAL: CN 2-12 intact / speech not dysarthric PSYCHIATRIC: A &OX 3 / able to understand and follow all commands EKG: NSR with a rate of 86 Echo Mar 2020 CONCLUSIONS: * Moderate concentric left ventricular hypertrophy with mild reduction of LV cavity size. Normal regional LV wall motion and wall thickening. Normal LV systolic function. LVEF of 65% by visual assessment. LV diastolic function could not be adequately accessed in the setting of atrial flutter. * Severe left atrial dilatation by left atrial volume index. * Moderate aortic valve sclerosis of a 3-cuspid aortic valve. No aortic regurgitation or aortic stenosis. * Moderate mitral annular calcification. Moderate mitral regurgitation with a posteriorly directed wall jet. No mitral valve prolapse. * Structurally normal appearing tricuspid leaflets. Severe tricuspid regurgitation suggestive of moderate elevation of estimated right ventricle systolic pressure (43 mmHg), estimated right atrial pressure of 15 mmHg. * Moderate right atrial dilatation. * Small intraventricular septal defect most likely an inlet ventricular septal defect (VSD) with a small amount of left ventricle to right ventricle shunting. The differential diagnosis would include perimembranous VSD or an overlap between a perimembranous VSD and an inlet VSD. No right ventricle to left ventricle shunting observed by color flow Doppler. * No atrial septal defect. * Small pericardial effusion without diastolic chamber collapse. LABORATORY DATA: 05/30/20 19:38 Immature Granulocyte % (Auto) 0.4, Neutrophils (%) (Auto) 61.0, Lymphocytes (%) (Auto) 27.2, Monocytes (%) (Auto) 10.5H, Eosinophils (%) (Auto) 0.6, Basophils (%) (Auto) 0.3, Neutrophils # (Auto) 5.9, Lymphocytes # (Auto) 2.7, Monocytes # (Auto) 1.0H, Eosinophils # (Auto) 0.1, Basophils # (Auto) 0.0, Nucleated Red Blood Cells % (auto) 0.0, Anion Gap 10, Glomerular Filtration Rate > 60.0, Calci um Level 8.8, Total Creatine Kinase 64, Creatine Kinase MB 1.2, Creatine Kinase MB Relative Index 1.88, Troponin I < 0.02 IMAGING: n/a MICROBIOLOGY: Please see below. ASSESSMENT: is a 65 yr old F w a hx of Longstanding persistent atria fibrillation that occurred after having an ablation for a flutter, Biatrial enlargement, aortic valve sclerosis, mitral valve regurgitation / mitral annular calcification, Severe tricuspid regurgitation & Moderate Pulm HTN who presented 2 times within 24H for rapid afib; she will be admitted for observation overnight pending additional cardiology recs. PLAN: 1. Longstanding persistent afib She is currently rate controlled. Plan: admit to medical floor/ f/u mag/ will ask the day time team to touch base with to decide if we need to increase the doses of her meds or have a rescue plan (ie taking additional dose of flecainide or bisoprolol when she has symptoms pending her appointment with in June for now I will continue with her home doses of bisoprolol, flecainide, valsartan and rivaroxaban 2. Mitral and Tricuspid Valvulopathy Plan: f/u with for surveillance Echos as scheduled 3. Chronic Erythrocytosis EPO was 3 which is within NL She is not hypoxemic and is no longer a smoker Plan: f/u with PCP for work up DVT PX n/a bc she is on a DOAC Dispo: home after less than 2 midnight's stay Home Medications Scheduled Ascorbic Acid (Vitamin C) 500 Mg Tablet, 500 MG PO DAILY Bisoprolol Fumarate (Bisoprolol Fumarate) 5 Mg Tablet, 5 MG PO BID HOLD IF HR<90 Cholecalciferol (Vitamin D3) (Vitamin D3) 1,000 Unit Tablet, 1,000 UNITS PO DAILY Flecainide Acetate (Flecainide Acetate) 50 Mg Tablet, 50 MG PO BID Magnesium Oxide (Magnesium Oxide) 400 Mg Tablet, 400 MG PO DAILY Rivaroxaban (Xarelto) 20 Mg Tablet, 20 MG PO QPM TAKES AT DINNERTIME Valsartan (Valsartan) 80 Mg Tablet, 80 MG PO QHS Vitamin E (Vitamin E) 400 Unit Capsule, 400 UNIT PO DAILY Scheduled PRN Lorazepam (Ativan) 0.5 Mg Tablet, 0.5 MG PO DAILY PRN for ANXIETY STARTED 05/26/20 Allergies Coded Allergies: Sulfa (Sulfonamide Antibiotics) (Verified Allergy, Mild, rash, 05/30/20) A-FIB/CHADSVASC A-FIB History Current/History of A-Fib/PAF?: No Current PO Anticoag Therapy: Yes Treatment Treatment ordered: Rivaroxaban ROSSANA HERNÁNDEZ MD May 30, 2020 23:48
--- OUTSIDE RECORDS SUMMARY | 2020-05-31 00:02 | CCD ---
Author Author [facility] Organization [facility] Address Unknown Phone Unavailable Care Team Providers Care Account Liaison Hospice Name Role Phone ANTECOL, Sabine YOUNG MD [...] L Robina PA Unavailable Unavailable Rikki, L Orbina PA Unavailable Unavailable Rikki, L Robina PA [...] or operated by the [facility] Office of Mental Health; or Provided by the [facility] Office for People With Developmental Disabilities. If such information is present, then the following [facility] mandated warning applies: This information has [...] law may result in a fine or nursing home sentence or both. A general authorization for the release of medical or other information is NOT sufficient authorization for further disc losure. Allergies and Adverse Reactions Type Description Substance Reaction Status Data Source(s ) Propensity to adverse reactions SULFA ANTIBIOTICS Sulfa Antibiotics Rash Low Active [facility] Low Propensity to adverse reactions LACTOSE INTOLERANCE (GI) [place] Intolerance (Gi) Active [facility] Propensity to adverse reactions GLUTEN MEAL Wheat gluten extract Active [facility] Propensity to adverse reactions GARLIC allyl sulfide A ctive [facility] Family History Family Member Name Family Member Gender Family Member Status Date o f Status Description Data Source(s) Unknown Male Problem [facility] ([facility]) Unknown Male Problem [facility] ([facility]) at age 38 Encounters Encounter Providers Location Date Indications Data Source(s ) Outpatient Attender: DAVE AMBROSE DO [facility] 04/21/2020 10:00:00 AM EST [facility] ([facility]) Outpatient Attender: HANNAH GALARZA MD Main Office 04/19/2020 11:00:00 AM EST [facility] ([facility]) Inpatient Attender: Ruchi Harris MDAdmitter: Ruchi douglas MD [email or web address] 04/11/2020 02:03:45 PM EST - 04/13/2020 01:50:00 PM EST [facility] Patient discharged. Outpatient Attender: Nico PATIÑO [facility] 04/07/2020 09:40:00 AM EST MED[facility] ([facility]) Outpatient Attender: Robina PATIÑO Main Office 12/03/2019 02:30:0 0 PM EDT [facility] ([facility]) Outpatient Attender: DAVE AMBROSE [facility] 06/24/2019 10:30:00 AM EDT [facility] ([facility]) Outpatient Attender: DAVE AMBROSE [facility] 06/05/2019 10:00:00 AM EST [facility] ([facility]) Outpatient Attender: DAVE AMBROSE [facility] 05/08/2019 12:20:00 PM EST [facility] ([facility]) Outpatient Attender: Robina PATIÑO Main Office 04/29/2019 12:00:0 0 PM EST [facility] ([facility]) [facility] 12:30:00 PM EST [facility] ([facility]) Medications Medication Brand Name Start Date Product [...] 05/27/2020 12:00:00 AM EST ORAL active [facility] ([facility]) 50 mg 05/07/2020 12:00:00 AM EST tablet 30 TAKE TWO TABLETS BY MOUTH EVERY DAY NEEDED FOR ATRIAL FIBRILATION TAKE TWO TABLETS BY MOUTH EVERY DAY NEEDED FOR ATRIAL FIBRILATION SOLD: 2020 [facility] Bisoprolol Fumarate 5 MG Oral Tablet Bisoprolol Fumarate 12:00:00 AM EST ORAL active [facility] ([facility]) 5 mg 05/05/2020 12:00:00 AM EST tablet 60 TAKE ONE TABLET BY MOUTH TWICE A DAY FOR RESTING HR>90 BPM TAKE ONE TABLET BY MOUTH TWICE A DAY FOR RESTING HR>90 BPM SOLD: 05/06/2020 [facility] Atenolol 25 MG Oral Tablet Atenolol 05/02/2020 12:00:00 AM EST ORAL completed [facility] ([facility]) Atenolol 25 MG Oral Tablet Atenolol 04/27/2020 12:00:00 AM EST ORAL completed [facility] ([facility]) 80 mg 04/20/2020 12:00:00 AM EST tablet 90 TAKE ONE TABLET BY MOUTH AT BEDTIME TAKE ONE TABLET BY MOUTH AT BEDTIME SOLD: 04/21/2020 [facility] Atenolol 25 MG Oral Tablet ATENOLOL 04/20/2020 12:00:00 AM EST tablet 180 TAKE ONE TABLET BY MOUTH TWICE A DAY TAKE ONE TABLET BY MOUTH TWICE A DAY SOLD: 04/21/2020 [facility] valsartan 80 MG Oral Tablet Valsartan 04/19/2020 12:00:00 AM EST ORAL active [facility] ([facility]) Flecainide Acetate 50 MG Oral Tablet Flecainide Acetate 03/2021 12:00:00 AM EST ORAL active [facility] ([facility]) Atenolol 25 MG Oral Tablet Atenolol 04/19/2020 12:00:00 AM EST ORAL completed [facility] ([facility]) 50 mg 04/15/2020 12:00:00 AM EST tablet 60 TAKE ONE TABLET BY MOUTH TWICE A DAY TAKE ONE TABLET BY MOUTH TWICE A DAY SOLD: 04/15/2020 [facility] Atenolol 50 MG Oral Tablet ATENOLOL [...] EST ORAL completed [facility] ([facility]) Atenolol 50 MG Oral Tablet Atenolol 04/14/2020 12:00:00 AM EST ORAL completed [facility] ([facility]) Mirtazapine 15 MG Oral Tablet Mirtazapine 04/14/2020 12:00:00 AM EST completed [facility] ([facility]) rivaroxaban 20 MG Oral Tablet [Xarelto] Xarelto 04/14/2020 12:00:0 0 AM EST ORAL active [facility] ([facility]) Amlodipine 5 MG Oral Tablet amLODIPine (NORVASC) 5 MG tablet amLODIPine (NORVASC) 5 MG tablet 04/14/2020 12:00:00 AM EST 5 mg Oral active Take 1 tablet (5 mg total) by mouth daily [facility] 5 mg 04/13/2020 12:00:00 AM EST [...] mg total) by mouth daily with dinner [facility] 2 ML Midazolam 1 MG/ML Injection midazolam (VERSED) in jection midazolam (VERSED) injection 04/12/2020 02:11:53 PM EST active As needed, Starting Sat04/12/20 at 1411, Intra-Procedure [facility] Medication administered onsite fentaNYL Citrate (PF) (SUBLIMAZE) injection 5857-6257-88 04/12/2020 02:11:40 PM EST active As neede d, Starting Tu04/12/20 at 1411, Intra-Procedure [facility] Medication administered onsite Diltiazem Hydrochloride 60 MG Oral Tablet diltiazem (C ARDIZEM) tablet 60 mg diltiazem (CARDIZEM) tablet 60 mg 04/11/2020 06:00:00 PM EST 60 mg Oral active 60 mg, Oral, Every 6 hours (scheduled), First dose on Sat04/11/20 at 1800 [facility] Medication administered onsite rivaroxaban 20 MG Oral Tablet rivaroxaban (XARELTO) ta blet 20 mg rivaroxaban (XARELTO) tablet 20 mg 04/11/2020 06:00:00 PM EST 20 mg Oral active 20 mg, Oral, Daily with dinner, First dose on Sat04/11/20 at 1800 [facility] Medication administered onsite ondansetron (ZOFRAN) injection 4 mg [id number] 04/11/2020 03:32:1 5 PM EST 4 mg Intravenous active 4 mg, In travenous, Every 4 hours PRN, nausea, vomiting, Starting Sat04/11/20 at 1532 [facility] Medication administered onsite Acetaminophen 325 MG Oral Tablet acetaminophen (TYLENO L) 325 MG tablet 650 mg acetaminophen (TYLENOL) 325 MG tablet 650 mg 04/11/2020 03:32:15 PM EST 650 mg Oral active 650 mg, Or al, Every 4 hours PRN, mild pain (1-3), headaches, Starting Sat04/11/20 at 1532
"Maximum dose of acetaminophen is 4,000 mg from all sources in 24 hours."
[facility] Medication administered onsite 60 mg 04/11/2020 [...] 04/06/2020 12:00:00 AM EST ORAL completed [facility] ([facility]) 30 mg 04/04/2020 12:00:00 AM EST tablet 120 TAKE ONE TABLET BY MOUTH FOUR TIMES A DAY TAKE ONE TABLET BY MOUTH FOUR TIMES A DAY SOLD: 04/04/2020 [facility] Diltiazem Hydrochloride 30 MG Oral Tablet Diltiazem HCL 04/04/2020 12:00:00 AM EST ORAL completed [facility] ([facility]) 24 HR Diltiazem Hydrochloride 120 [...] ORAL completed [facility] ([facility]) 24 HR Diltiazem Hydrochloride 300 MG Extended Release Oral Capsule Diltiazem HCL ER Beads 03/31/2020 12:00:00 AM EST ORAL completed [facility] ([facility]) 20 mg 10/12/2019 12:00:00 AM [...] Doxycycline Monohydrate 100 MG Oral Capsule Doxycycline [place] hydrate 04/28/2019 12:00:00 AM EST ORAL active M EDENT ([facility]) Atenolol 25 MG Oral Tablet Atenolol 04/28/2019 12:00:00 AM EST active [facility] ([facility]) 100 mg 03/30/2019 12:00:00 AM EST capsule [...] by mouth 4 (four) times a day [facility] rivaroxaban 15 MG Oral Tablet rivaroxaban (XARELTO) 15 MG TABS rivaroxaban (XARELTO) 15 MG TABS 15 mg Oral aborted [place] 15 mg by mouth daily [facility] Atenolol 25 MG Oral Tablet atenolol (TENORMIN) 25 MG t ablet atenolol (TENORMIN) 25 MG tablet 25 mg Oral aborted Take 25 mg by mouth daily [facility] Insurance Providers Payer name Policy type / Coverage type Policy ID Covered libertarian ID Covered libertarian's relationship to saldaña Policy Saldaña Plan Information [facility] [id number] SP [id number] MEDICARE [id number] SP [id number] [facility] [id number] SP [id number] UMR O [id number] S [id number] MEDICARE C [id number] S [id number] MEDICARE [id number] MEDICARE [id number] Regla [id number] Umr Commercial [id number] Self [id number] [facility] [id number] SP [id number] Umr Commercial [id number] Self [id number] Umr Medigap Part B [id number] Self [id number] [place] [employer] Ppo Commercial [id number] Self [id number] Umr Medigap Part B [id number] Self [id number] Umr Commercial [id number] Self [id number] Umr Commercial [id number] Self [id number] Umr Commercial [id number] Self [id number] Umr Commercial [id number] Self [id number] Umr Commercial [id number] Self [id number] Umr Commercial [id number] Self [id number] Umr Commercial [id number] Self [id number] Umr Commercial [id number] Self [id number] Umr Commercial [id number] Self [id number] Umr Commercial [id number] Self [id number] POMCO [id number] S [id number] Umr Commercial [id number] Self [id number] Umr Medigap Part B [id number] Self [id number] Umr Medigap Part B [id number] Self [id number] Umr Commercial [id number] Self [id number] [id number] Umr Commercial [id number] Self [id number] Umr Commercial [id number] Self [id number] Umr Commercial [id number] Self [id number] Umr Commercial [id number] Self [id number] [id number] Umr Commercial [id number] Self [id number] [id number] Umr Commercial [id number] Self [id number] [id number] Umr Commercial [id number] Self [id number] [id number] Umr Commercial [id number] Self [id number] [id number] Umr Commercial [id number] Self [id number] Umr Medigap Part B [id number] Self [id number] [employer]OM[employer] [id number] SP [id number] [employer] PHCS Ppo Commercial [id number] Self [id number] [employer]OM[employer] COMM SELF [id number] S [id number] Problems, Conditions, and Diagnoses Code Display Name Description Problem Type Effective Dates Data Source(s) 841160351 Paroxysmal atrial fibrillation Paroxysmal atrial fibri llation Problem 04/19/2020 12:00:00 AM EST [facility] ([facility]) [id number] Essential hypertension Essential hypertension Problem 04/19/2020 12:00:00 AM EST [facility] ([facility]) I48.3 Typical atrial flutter Typical atrial flutter [id number] 04/11/2020 12:00:00 AM [facility] I48.92 Atrial flutter Atrial flutter [id number] 04/11/2020 12:00: 00 AM [facility] I48.3 Typical atrial flutter Typical atrial flutter Diagnosi s 04/11/2020 02:03:45 PM [facility] I48.92 Unspecified atrial flutter Unspecified atrial flutter Diagnosis 04/11/2020 02:03:45 PM EST [facility] Surgeries/Procedures Procedure Description Date Indications Data Source(s) ECG ROUTINE ECG W/LEAST 12 LDS W/I&R 04/19/2020 12:00: 00 AM EST MEDMOON ([facility]) Arterial Pressure Waveform Analysis For Assessment Of Centra l Art 04/19/2020 12:00:00 AM EST ASIA ([employer]) BLOOD COUNT COMPLETE AUTOMATED CBC Routine 04/13/2020 4:23 A M EST 04/13/2020 09:23:00 AM EST [facility] BASIC METABOLIC PANEL CALCIUM TOTAL BASIC METABOLIC PANEL Routi ne 04/13/2020 4:23 AM EST 04/13/2020 09:23:00 AM EST [facility] EP STUDY EP STUDY Routine 04/12/2020 2:29 PM EST Typical atrial flutter 04/12/2020 07:29:52 PM EST Typical atrial flutter [facility] Typical atrial flutter ECHO TTHRC R-T 2D W/WOM-MODE COMPL SPEC&COLR DOP ECHOCARDIO GRAM TRANSTHORACIC Routine 04/12/2020 7:30 AM EST 04/12/2020 12:30:00 PM EST [facility] ECG ROUTINE ECG W/LEAST 12 LDS TRCG ONLY W/O I&R ECG 12-LEAD Routine 04/12/2020 6:35 AM EST 04/12/2020 11:35:16 AM EST [facility] BLOOD COUNT COMPLETE AUTOMATED CBC Routine 04/12/2020 5:19 A M EST 04/12/2020 10:19:00 AM EST [facility] BASIC METABOLIC PANEL CALCIUM TOTAL BASIC METABOLIC PANEL Routi ne 04/12/2020 5:19 AM EST 04/12/2020 10:19:00 AM EST [facility] THROMBOPLASTIN TIME PARTIAL PLASMA/WHOLE BLOOD APTT Routine 04/11/2020 2:55 PM EST 04/11/2020 07:55:00 PM EST [facility] PROTHROMBIN TIME PROTIME-INR Routine 04/11/2020 2:55 PM EST 04/11/2020 07:55:00 PM EST [facility] BLOOD COUNT COMPLETE AUTOMATED CBC Routine 04/11/2020 2:55 P M EST 04/11/2020 07:55:00 PM EST [facility] COMPREHENSIVE METABOLIC PANEL COMPREHENSIVE METABOLIC PANEL Rou elder 04/11/2020 2:55 PM EST 04/11/2020 07:55:00 PM EST [facility] ECG ROUTINE ECG W/LEAST 12 LDS W/I&R ECG 12-LEAD Routine 04/11/2020 2:01 PM EST 04/11/2020 07:01:27 PM [facility] Electrocardiogram Complete 04/07/2020 12:00:00 AM EST MED[facility] ([facility]) ECG ROUTINE ECG W/LEAST 12 LDS W/I&R 12/03/2019 12:00: 00 AM EDT [facility] ([facility]) Omt 7-8 Body Regions 06/24/2019 12:00:00 AM EDT MED[facility] ([facility]) Omt 7-8 Body Regions 06/05/2019 12:00:00 AM EST [facility] ([facility]) Omt 7-8 Body Regions 05/08/2019 12:00:00 AM EST [facility] ([facility]) ECG ROUTINE ECG W/LEAST 12 LDS W/I&R 04/29/2019 12:00: 00 AM EST [facility] ([facility]) Omt 7-8 Body Regions 04/07/2019 12:00:00 AM EST [facility] ([facility]) Results ID Date Data Source [id number] 05/30/2020 04:29:00 AM EST [facility] ([facility]) Name Value Range Interpretation Code Description Data Kathi rce(s) Supporting Document(s) Phosphate [Moles/volume] in Serum or Plasma 3.6 mg/dL 2.5- 4.9 Normal (applies to non-numeric results) [facility] ([facility]) Lipase [Enzymatic activity/volume] in Serum or Plasma 235 U/L 73-393 Normal (applies to non-numeric results) [facility] ([facility]) Magnesium [Mass/volume] in Serum or Plasma 2.1 mg/dL 1.8-2 .4 Normal (applies to non-numeric results) [facility] Thyrotropin [Units/volume] in Serum or Plasma 2.430 uIU/ML 0. 358-3.740 Normal (applies to non-numeric results) [facility] ([facility]) Thyroxine (T4) free [Mass/volume] in Serum or Plasma 1.22 ng/dL 0.76-1.46 Normal (applies to non-numeric results) [facility] ([facility]) ID Date Data Source [id number] 05/30/2020 04:29:00 AM EST [facility] ([facility]) Name Value Range Interpretation Code Description Data Kathi rce(s) Supporting Document(s) Blood Urea Nitrogen 15 mg/dL 7-18 Normal (applies to non-nume kelly results) [facility]) Glucose, Fasting 85 mg/dL 70-100 Normal (applies to non-numeric results) [facility] ([facility]) Creatinine For GFR 0.76 mg/dL 0.55-1.30 Normal (applies to non -numeric results) [facility] ([facility]) Glomerular Filtration Rate Laboratory test result Normal (applies to non- numeric results) [facility] ([facility]) <content>Units are mL/min/1.73 m2</content>
<content></content>
<content>Chronic Kidney Disease Staging per NKF:</content>
<content></content>
<content>Stage I & II GFR >=60 Normal to Mildly Decreased</content>
<content>Stage III GFR 30- 59 Moderately Decreased</content>
<content>Stage IV GFR 15-29 Severely Decreased</content>
<content>Stage V GFR <15 Very Little GFR Left</content>
<content>ESRD GFR <15 on CHOKER SETTER</content>
<content></content> Potassium Serum 3.9 meq/L 3.5-5.1 Normal (applies to non-numeric results) [facility] ([facility]) Sodium Level 143 meq/L 136-145 Normal (applies to non-numeric res ults) [facility] ([facility]) Chloride Level 106 meq/L 98-107 Normal (applies to non-numeric r esults) [facility] ([facility]) Carbon Dioxide Level 29 meq/L 21-32 Normal (applies to non-num pop results) [facility] Anion Gap 8 meq/L 8-16 Normal (applies to non-numeric resul ts) [facility]) Calcium Level 9.5 mg/dL 8.8-10.2 Normal (applies to non-numeric re sults) [facility] ID Date Data Source [id number] 05/30/2020 04:29:00 AM EST [facility] ([facility]) Name Value Range Interpretation Code Description Data Kathi rce(s) Supporting Document(s) Ast/Sgot 30 U/L 7-37 Normal (applies to non-numeric resul ts) [facility]) Alt/SGPT 43 U/L 12-78 Normal (applies to non-numeric resul ts) [facility]) Bilirubin,Total 0.7 mg/dL 0.2-1.0 Normal (applies to non-numeric results) [facility] ([facility]) Alkaline Phosphatase 95 U/L 45-117 Normal (applies to non-num pop results) [facility] ([facility]) Bilirubin,Direct 0.2 mg/dL 0.0-0.2 Normal (applies to non-numeric results) [facility] ([facility]) Total Protein 6.6 GM/DL 6.4-8.2 Normal (applies to non-numeric re sults) [facility] ([facility]) Albumin 3.8 GM/DL 3.2-5.2 Normal (applies to non-numeric resul ts) [facility]) Albumin/Globulin Ratio 1.4 1.2-2.2 Normal (applies to non-n umeric results) [facility]) ID Date Data Source [id number] 05/30/2020 04:29:00 AM EST [facility] ([facility]) Name Value Range Interpretation Code Description Data Kathi rce(s) Supporting Document(s) CPK Creatine Phosphokinase 62 U/L 26-192 Queenie l (applies to non-numeric results) [facility]) MB/CK Relative Index 2.42 Normal (applies to non-num pop results) [facility] ([facility]) <content>DIAGNOSIS CRITERIA</content>
<content>MMB ng/ml Relative Index (RI)</content>
<content>NON-AMI < or = 5 N/A</content>
<content>NGUYEN ZONE > 5 < or = 4</content>
<content>AMI > 5 > 4</content>
<content></content> CK-MB Value Mass 1.5 ng/mL Normal (applies to non-numeric results) [facility] ([facility]) Troponin I Laboratory test result Normal (applies to non-n umeric results) [facility] ([facility]) <content>Troponin I Reference Interval f or Siemens [place] LOCI:</content>
<content></content>
<content>99th Percentile= 0.00-0.045 ng/ml</content>
<content></content>
<content>Risk Stratification:</content>
<content><= 0.10 ng/ml Decreased Risk for Adverse Clinical</content>
<content>Events.</content>
<content>0.10-1.50 ng/ml Increased Risk for Adverse Clinical</content>
<content>Events. Evaluation of additional</content>
<content>criterion and/or repeat testing in 2-6</content>
<content>hours is suggested to rule out myocardial</content>
<content>damage.</content>
<content>>= 1.50 ng/ml Indicative of Myocardial Injury.</content>
<content></content> ID Date Data Source [id number] 05/30/2020 04:29:00 AM EST [facility] Name Value Range Interpretation Code Description Data Kathi rce(s) Supporting Document(s) aPTT in Platelet poor plasma by Coagulation assay 38.4 s 24.2-38.5 Normal (applies to non-numeric results) [facility] ([facility]) ID Date Data Source [id number] 05/30/2020 04:29:00 AM EST [facility] Name Value Range Interpretation Code Description Data Kathi rce(s) Supporting Document(s) Inr 1.68 Normal (applies to non-numeric resul ts) [facility] ([facility]) THERAPUTIC HUMAN INR VALUES INDICATIONS NORMAL RANGES PROPHYLAXIS/TREATMENT OF: VENOUS THROMBOSIS 2.0-3.0 PULMONARY EMBOLISM 2.0-3.0 PREVENTION OF SYSTEMIC EMBOLISM FROM: TISSUE HEART VALVES 2.0-3.0 ACUTE MYOCARDIAL INFARCTION 2.0-3.0 VALVULAR HEART DISEASE 2.0-3.0 ATRIAL FIBRILLATION 2.0-3.0 MECHANICAL VALVES(HIGH RISK) 2.5-3.5 RECURRENT MYOCARDIAL INFARCTION 2.5-3.5 Prothrombin Time 20.2 s 12.5-14.3 Above high normal M [facility]) ID Date Data Source [id number] 05/30/2020 04:29:00 AM EST [facility] ([facility]) Name Value Range Interpretation Code Description Data Kathi rce(s) Supporting Document(s) White Blood Count 6.7 10 4.0-10.0 Normal (applies to non-numeri c results) [facility] ([facility]) Hemoglobin 14.4 g/dL 12.0-15.5 Normal (applies to non-numeric resul ts) [facility] ([facility]) Red Blood Count 4.69 10 4.00-5.40 Normal (applies to non-numeric results) [facility] ([facility]) Hematocrit 42.2 % 36.0-47.0 Normal (applies to non-numeric resul ts) [facility] ([facility]) Mean Corpuscular Volume 90.0 fl 80.0-96.0 Normal ( applies to non-numeric results) [facility] ([facility]) Mean Corpuscular Hemoglobin 30.7 pg 27.0-33.0 Norm al (applies to non-numeric results) [facility] ([facility]) Red Cell Distribution Width 12.0 % 11.5-14.5 Norm al (applies to non-numeric results) [facility] ([facility]) Mean Corpuscular HGB Conc 34.1 g/dL 32.0-36.5 Normal (applies to non-numeric results) [facility] ([facility]) Platelet Count, Automated 244 10 150-450 Normal (applies to non-numeric results) [facility] ([facility]) [place] % 10.5 % 2.0-8.0 Above high normal [facility] ([facility]) Neutrophils % 50.3 % 36.0-66.0 Normal (applies to non-numeric re sults) [facility] ([facility]) Lymph % 37.3 % 24.0-44.0 Normal (applies to non-numeric resul ts) [facility] ([facility] [facility]) Eos % 1.2 % 0.0-3.0 Normal (applies to non-numeric resul ts) [facility] ([facility]) Immature Granulocyte % 0.3 % 0-3.0 Normal (applies to non-n umeric results) [facility] ([facility]) Baso % 0.4 % 0.0-1.0 Normal (applies to non-numeric resul ts) [facility] ([facility]) Lymph # 2.5 10 1.5-5.0 Normal (applies to non-numeric resul ts) [facility] ([facility]) Neutrophils # 3.4 10 1.5-8.5 Normal (applies to non-numeric re sults) [facility] ([facility]) Nucleated Red Blood Cell % 0.0 % 0-0 Normal (applies to n on-numeric results) [facility] ([facility]) [place] # 0.7 10 0.0-0.8 Normal (applies to non-numeric resul ts) [facility] ([facility]) Eos # 0.1 10 0.0-0.5 Normal (applies to non-numeric resul ts) [facility] ([facility]) Baso # 0.0 10 0.0-0.2 Normal (applies to non-numeric resul ts) [facility] ID Date Data Source [id number] 2020 07:05:00 PM EST [facility] ([facility]) Name Value Range Interpretation Code Description Data Kathi rce(s) Supporting Document(s) Laboratory test finding (navigational concept) 0.77 0 .4-2.0 Normal (applies to non-numeric results) [facility]) ID Date Data Source [id number] 2020 01:51:00 PM EST [facility] ([facility]) Name Value Range Interpretation Code Description Data Kathi rce(s) Supporting Document(s) Laboratory test finding (navigational concept) 41.0 % 3 8.0-51.0 Normal (applies to non-numeric results) [facility]) Laboratory test finding (navigational concept) 140 meq/L 1 36-145 Normal (applies to non-numeric results) [facility] ([facility]) Laboratory test finding (navigational concept) 4.1 meq/L 3 .5-5.1 Normal (applies to non-numeric results) [facility] ([facility]) Laboratory test finding (navigational concept) 92 mg/dL 7 0-105 Normal (applies to non-numeric results) [facility] ([facility]) Laboratory test finding (navigational concept) 104 meq/L 9 8-109 Normal (applies to non-numeric results) [facility] ([facility]) Laboratory test finding (navigational concept) 4.7 mg/dL 4 .5-5.3 Normal (applies to non-numeric results) [facility] ([facility]) Laboratory test finding (navigational concept) 18 mg/dL 8 -26 Normal (applies to non-numeric results) [facility] ([facility]) Laboratory test finding (navigational concept) 27.0 MM/L 2 3.0-27.0 Normal (applies to non-numeric results) [facility] ([facility]) Laboratory test finding (navigational concept) 0.7 mg/dL 0 .6-1.3 Normal (applies to non-numeric results) [facility] ([facility]) ID Date Data Source [id number] 05/22/2020 04:48:00 PM EST [facility] ([facility]) Name Value Range Interpretation Code Description Data Kathi rce(s) Supporting Document(s) Red Blood Count 4.74 10 4.00-5.40 Normal (applies to non-numeric results) [facility] ([facility]) White Blood Count 7.6 10 4.0-10.0 Normal [...] [facility] ([facility]) [place] % 9.6 % 2.0-8.0 Above high normal [...] [facility] ([facility]) [place] # 0.7 10 0.0-0.8 Normal (applies to non-numeric resul ts) [facility] ([facility]) Lymph # 2.0 10 1.5-5.0 Normal (applies to non-numeric resul ts) [facility] ([facility]) Baso # 0.0 10 0.0-0.2 Normal (applies to non-numeric resul ts) [facility] ([facility]) ID Date Data Source [id number] 05/22/2020 04:47:00 PM EST [facility] ([facility]) Name Value Range Interpretation Code Description Data Kathi rce(s) Supporting Document(s) CPK Creatine Phosphokinase 58 U/L 26-192 Queenie l (applies to non-numeric results) [facility]) CK-MB Value Mass 1.2 ng/mL Normal (applies to non-numeric results) [facility] ([facility]) MB/CK Relative Index 2.07 Normal (applies to non-num pop results) [facility]) <content>DIAGNOSIS CRITERIA</content>
<content>MMB ng/ml Relative Index (RI)</content>
<content>NON-AMI < or = 5 N/A</content>
<content>NGUYEN ZONE > 5 < or = 4</content>
<content>AMI > 5 > 4</content>
<content></content> Troponin I Laboratory test result Normal (applies to non-n umeric results) [facility] ([facility]) <content>Troponin I Reference Interval f or Siemens [place]ree LOCI:</content>
<content></content>
<content>99th Percentile= 0.00-0.045 ng/ml</content>
<content></content>
<content>Risk Stratification:</content>
<content><= 0.10 ng/ml Decreased Risk for Adverse Clinical</content>
<content>Events.</content>
<content>0.10-1.50 ng/ml Increased Risk for Adverse Clinical</content>
<content>Events. Evaluation of additional</content>
<content>criterion and/or repeat testing in 2-6</content>
<content>hours is suggested to rule out myocardial</content>
<content>damage.</content>
<content>>= 1.50 ng/ml Indicative of Myocardial Injury.</content>
<content></content> ID Date Data Source [id number] 05/22/2020 04:47:00 PM EST [facility] ([facility]) Name Value Range Interpretation Code Description Data Kathi rce(s) Supporting Document(s) Alkaline Phosphatase 101 U/L 45-117 Normal (applies to non-num pop results) [facility] ([facility]) Alt/SGPT 49 U/L 12-78 Normal (applies to non-numeric resul ts) [facility] ([facility]) Ast/Sgot 33 U/L 7-37 Normal (applies to non-numeric resul ts) [facility] ([facility]) Bilirubin,Total 0.4 mg/dL 0.2-1.0 Normal (applies to non-numeric results) [facility] ([facility]) Total Protein 6.5 GM/DL 6.4-8.2 Normal (applies to non-numeric re sults) [facility] ([facility]) Bilirubin,Direct 0.1 mg/dL 0.0-0.2 Normal (applies to non-numeric results) [facility] ([facility]) Albumin/Globulin Ratio 1.3 1.2-2.2 Normal (applies to non-n umeric results) [facility] ([facility]) Albumin 3.7 GM/DL 3.2-5.2 Normal (applies to non-numeric resul ts) [facility] ([facility]) ID Date Data Source [id number] 05/22/2020 04:47:00 PM EST [facility] ([facility]) Name Value Range Interpretation Code Description Data Kathi rce(s) Supporting Document(s) Blood Urea Nitrogen 21 mg/dL 7-18 Above high normal [facility] ([facility]) Glucose, Fasting 77 mg/dL 70-100 Normal (applies to non-numeric results) [facility] ([facility]) Creatinine For GFR 0.86 mg/dL 0.55-1.30 Normal (applies to non -numeric results) [facility] ([facility]) Glomerular Filtration Rate Laboratory test result Normal (applies to non- numeric results) [facility] ([facility]) <content>Units are mL/min/1.73 m2</content>
<content></content>
<content>Chronic Kidney Disease Staging per NKF:</content>
<content></content>
<content>Stage I & II GFR >=60 Normal to Mildly Decreased</content>
<content>Stage III GFR 30- 59 Moderately Decreased</content>
<content>Stage IV GFR 15-29 Severely Decreased</content>
<content>Stage V GFR <15 Very Little GFR Left</content>
<content>ESRD GFR <15 on CHOKER SETTER</content>
<content></content> Chloride Level 107 meq/L 98-107 Normal (applies to non-numeric r esults) [facility] ([facility]) Sodium Level 142 meq/L 136-145 Normal (applies to non-numeric res ults) [facility] ([facility]) Potassium Serum 4.0 meq/L 3.5-5.1 Normal (applies to non-numeric results) [facility] ([facility]) Anion Gap 8 meq/L 8-16 Normal (applies to non-numeric resul ts) [facility] ([facility]) Carbon Dioxide Level 27 meq/L 21-32 Normal (applies to non-num pop results) [facility] ([facility]) Calcium Level 9.2 mg/dL 8.8-10.2 Normal (applies to non-numeric re sults) [facility] ([facility]) ID Date Data Source [id number] 05/22/2020 04:47:00 PM EST [facility] ([facility]) Name Value Range Interpretation Code Description Data Kathi rce(s) Supporting Document(s) Lipase [Enzymatic activity/volume] in Serum or Plasma 371 U/L 73-393 Normal (applies to non-numeric results) [facility]) ID Date Data Source [id number] 04/14/2020 08:40:00 PM EST [facility] ([facility]) Name Value Range Interpretation Code Description Data Kathi rce(s) Supporting Document(s) Laboratory test finding (navigational concept) 0.38 ng/mL 0 .00-0.08 Above high normal [facility] ([facility]) ID Date Data Source [id number] 04/14/2020 08:34:00 PM EST [facility] ([facility]) Name Value Range Interpretation Code Description Data Kathi rce(s) Supporting Document(s) Laboratory test finding (navigational concept) 48.0 % 3 8.0-51.0 Normal (applies to non-numeric results) [facility] ([facility]) Laboratory test finding (navigational concept) 144 mg/dL 7 0-105 Above high normal [facility] ([facility]) Laboratory test finding (navigational concept) 3.8 meq/L 3 .5-5.1 Normal (applies to non-numeric results) [facility] ([facility]) Laboratory test finding (navigational concept) 138 meq/L 1 36-145 Normal (applies to non-numeric results) [facility] ([facility]) Laboratory test finding (navigational concept) 104 meq/L 9 8-109 Normal (applies to non-numeric results) [facility] ([facility]) Laboratory test finding (navigational concept) 25.0 MM/L 2 3.0-27.0 Normal (applies to non-numeric results) [facility] ([facility]) Laboratory test finding (navigational concept) 23 mg/dL 8 -26 Normal (applies to non-numeric results) [facility] ([facility]) Laboratory test finding (navigational concept) 4.4 mg/dL 4 .5-5.3 Below low normal [facility] ([facility]) Laboratory test finding (navigational concept) 0.7 mg/dL 0 .6-1.3 Normal (applies to non-numeric results) [facility] ([facility]) ID Date Data Source [id number] 04/14/2020 08:30:00 PM EST [facility] ([facility]) Name Value Range Interpretation Code Description Data [...] [facility] ([facility]) Mean [...] NT ([facility]) Platelet Count, Automated 236 10 150-450 Normal (applies to non-numeric results) [facility] ([facility]) [place] % 9.3 % 0.0-5.0 Above high normal [facility] ([facility]) Lymph % 20.4 % 24.0-44.0 Below low normal [facility] ( [facility]) Eos % [...] [facility] ([facility]) [place] # 0.9 10 0.0-0.8 Above high normal [facility] ID Date Data Source [id number] 04/14/2020 03:26:00 PM EST [facility] ([facility]) Name Value Range Interpretation Code Description Data Kathi rce(s) Supporting Document(s) Hematocrit [Volume Fraction] of Blood by Automated count 49.0 [facility] ([facility]) Hemoglobin [Mass/volume] in Blood 17.0 [facility] ([facility]) Erythrocyte mean corpuscular volume [Entitic volume] by Automate d count 90.6 [facility] ([facility]) Erythrocyte mean corpuscular hemoglobin [Entitic mass] by Au tomated count 31.4 [facility] ([facility]) Erythrocyte mean corpuscular hemoglobin concentration [Mass/volume] by Automated count 34.7 [facility] Neutrophils 68.7 [facility] ([facility]) Platelet mean volume [Entitic volume] in Blood by [place] Laboratory test result [facility] ([facility]) Platelets [#/volume] in Blood [...] by Manual count Laboratory test result [facility] ([facility]) Basophils/100 leukocytes in Blood [...] [facility]) ID Date Data Source [id number] 04/14/2020 03:26:00 PM EST [facility] ([facility] [...] [facility]) ID Date Data Source [id number] 04/13/2020 12:19:30 PM EST [facility] INFORMATIONPatient MRN Name Date of Age Gend*PT [id number] Shaydaniel Mercy 1955 64 years F SDCXPT Location Admission Date/Time Visit ID Attending Provider04/11/20 1403 --- Zhanna Harris MD([id number]) EPI ID CSN Admitting Provider [id number] Zhanna Harris MD([id number]) Attestation signed by Zhanna Harris MD at 04/13/2020 12:19 PMATTENDING ADDENDUM:I saw and examined Ms. Arreola today, and agree with the exam, assessment,and plan of damon Benitez, noted above.In brief, Ms. Arreola presents with typical with successful RFA.I agree with the plan as noted above.Beto Harris M.D., [facility], RSClinical Cardiac Electrophysiology04/13/2020 12:18 PM --Cardiology Discharge Summary Mercy ArreolaMRN: [id number] date: 04/11/2020ttending Physician: Zhanna Harris [facility] Diagnosis: Typical atrial flutterSecondary Diagnoses: Principal Problem: [...] Lyme disease, status post treatment . [place]abeosis, [address]. Atrial flutter status post multiple DC cardioversions. Patient on Xarelto.4. Distant history of tobacco useThe patient presented to [facility] for palpitations witha heart rate [...] VITAMIN C Take 500 mg by mouth vdjwoP-Eybivvk-B Tabs Take 1 tablet by mouth dailydicyclomine [...] Get Your MedicationsThese medications were sent to [facility] [place], [place] - [address] [place] [address] amLODIPine 5 MG tablet rivaroxaban 20 MG [...] Name Value Range Interpretation Code Description [facility] Document(s) ID Date Data Source [id number] 04/13/2020 06:50:43 AM EST [facility] Name Value Range Interpretation Code Description Data [facility](s) Supporting Document(s) SODIUM 139 mmol/L (136-145) [facility] POTASSIUM 4.3 mmol/L (3.6-5.2) [facility] CHLORIDE 105 mmol/L (100-108) [facility] CO2 25 mmol/L (22-31) [facility] ANION GAP 9 mmol/L (7-16) [facility] UREA NITROGEN 25 mg/dL (7-24) H [facility] CREATININE 0.80 mg/dL (0.60-1.00) [facility] BUN/CREAT RATIO 31.3 RATIO (10.0-20.0) H [facility] GLUCOSE 71 mg/dL (70-99) [facility] CALCIUM 8.9 mg/dL (8.4-10.2) [facility] GFR >60 ml/min/1.73m2 (>59) [facility] GFR ( AMER) >60 ml/min/1.73m2 (>59) [facility] GFR INTERPRETATION [facility] --NORMAL KIDNEY FUNCTION OR MILD DISEASE - GFR >OR= 60CHRONIC KIDNEY DISEASE - GFR 15 - 59RENAL FAILURE - GFR <15 Est. GFR calculation based on the MDRDstudy equation, which assumes a steadystate for creatinine. Est. GFR should notbe used for medication dosing. ID Date Data Source [id number] 04/13/2020 04:36:41 AM EST [facility] Name Value Range Interpretation Code Description Data Kathi rce(s) Supporting Document(s) WBC 8.8 10*3/uL (4.1-11.0) [facility] [place] RBC 5.24 10*6/uL (4.00-5.40) [facility] HGB 17.1 g/dL (12.0-16.0) H [facility] HCT 49.1 % (36.0-47.0) H [facility] PERFORMED AT [address] [place] [address] N Y [id number] MCV 93.7 fL (80.0-95.0) [facility] MCH 32.6 pg (27.0-32.0) H [facility] MCHC 34.8 g/dL (32.0-36.0) [facility] RDW 12.4 % (10.5-14.5) [facility] PLT 234 10*3/uL (150-450) [facility] MPV 7.6 fL (7.1-10.7) [facility] ID Date Data Source [id number] 04/12/2020 02:52:26 PM EST [facility] Name Value Range Interpretation Code Description Data Kathi rce(s) Supporting Document(s) &PDF [facility] VRMNQg1aJsADBoBr11/OYAxzOQJzk4AmYHdlYWe9EBxpRQUgV9AkwNlqBUZVRqkXN1wGJYaXOa3oJUEk waW [file] WCN6EIRn== ID Date Data Source [id number] 04/12/2020 10:05:42 AM EST [facility] Name Value Range Interpretation Code Description Data Kathi rce(s) Supporting Document(s) &PDF [facility] PTOTVh3eJfMNSrLi30/MMJmeMHRjj2JxOHxyJTe3KJmoXZCsK3EasSokUZHWQkgID0kCYGtKYj0uTJBr waW [file] cam specialist+lTqyHrp1jbmQEBQ9XgeVR76sx62Ou1qtEU5GYm [file] GjmiScH9TOPySFO7EmWcRNa7Wl5qGTXYAy9+HFifhSLwiWxbVNQRWkW0HDN4YVvhLIJBEp4A ID Date Data Source [id number] 04/12/2020 08:37:17 AM EST [facility] Name Value Range Interpretation Code Description Data Kathi rce(s) Supporting Document(s) EKG [facility] TGWLRe3dTuLJCtUnt2JtBaQxNHHrAB6uhva0S4F8yQJuF5JjxMJmd7uvD7JkF2KmBVFdFQVNCD5EdCDo jb2 [file] I0v5rdQYAsUlLS/4DPtzN4wtSvRd2U18gEXeQbm9IVxxNI8/+9a8DqR6F/38q1vhe/Yq9v+TIx6p+waste management recycling technician AN7cldbv0F/2TwCY7wOn9ZJrMzdX9O6E4+7RP3Z1OI+H/axsEUuV8USmbI+hTTwkAByF+uyf/ccnYZWA RkI6eMEr9LL4SbDxEzsPJhLAJBjA6FXxz4rZYNWMZA bIwFV7BSR2PyZpFNdASqBXEnaoUtgnaIMtOVVkjIIOk/oAUkTdBES+tCxQSoPoKTgvmVbFVHLTA3eNDC dnByVU3dEcotISJDzUdnJTjMC0LuVUH1x6HkMJIxjFqaawgNGj+OH9LCwdDu5C3axqvrLafpK+gC+X76 1I6+mK33KYoDWtRQKUo1zegnOAZR7FiUZ99iqFEk85 MnLsxCiJsaAATvWRpik77YgAJlawzIGvlkjxA3Oe0fSHdXbSkCFJN2KAJhq+GBiZRrYCLleoquDBrBu9 fpwTsYFElFh823vFmE+kezkVR4LKDVqLbhIwgb+QSU+AZhhKnCbCDq4NZdYHQSEohy1eWkZ7zMSSn6mM i6NXPJOGF5uhNNUavNPCWFXqTV9m3Si2H35FnTIXYZ [file] Naa9UeUWFrNZEORz4+LfL7SRV6kMUvFaa8EeX7McceHUWVWc== ID Date Data Source [id number] 04/12/2020 06:32:35 AM EST [facility] Name Value Range Interpretation Code Description Data Kathi rce(s) Supporting Document(s) SODIUM 138 mmol/L (136-145) [facility] POTASSIUM 4.3 mmol/L (3.6-5.2) [facility] CHLORIDE 106 mmol/L (100-108) [facility] CO2 24 mmol/L (22-31) [facility] ANION GAP 8 mmol/L (7-16) [facility] UREA NITROGEN 29 mg/dL (7-24) H [facility] CREATININE 0.91 mg/dL (0.60-1.00) [facility] BUN/CREAT RATIO 31.9 RATIO (10.0-20.0) H [facility] GLUCOSE 83 mg/dL (70-99) [facility] CALCIUM 9.0 mg/dL (8.4-10.2) [facility] GFR >60 ml/min/1.73m2 (>59) [facility] GFR ([facility]) >60 ml/min/1.73m2 (>59) [facility] GFR INTERPRETATION [facility] --NORMAL KIDNEY FUNCTION OR MILD DISEASE - GFR >OR= 60CHRONIC KIDNEY DISEASE - GFR 15 - 59RENAL FAILURE - GFR <15 Est. GFR calculation based on the MDRDstudy equation, which assumes a steadystate for creatinine. Est. GFR should notbe used for medication dosing. ID Date Data Source [id number] 04/12/2020 06:02:20 AM EST [facility] Name Value Range Interpretation Code Description Data Kathi rce(s) Supporting Document(s) WBC 8.1 10*3/uL (4.1-11.0) [facility] [place] RBC 5.45 10*6/uL (4.00-5.40) H [facility] HGB 18.1 g/dL (12.0-16.0) H [facility] HCT 50.6 % (36.0-47.0) H [facility] PERFORMED AT [address] [place] [address] N Y [address] MCV 92.8 fL (80.0-95.0) [facility] MCH 33.1 pg (27.0-32.0) H [facility] MCHC 35.7 g/dL (32.0-36.0) [facility] RDW 12.8 % (10.5-14.5) [facility] PLT 258 10*3/uL (150-450) [facility] MPV 8.0 fL (7.1-10.7) [facility] ID Date Data Source [id number] 04/11/2020 05:34:01 PM EST [facility] Name Date of Age Gend*PT [id number] Mercy Arreola 1955 64 years F SDCXPT Location Admission Date/Time Visit ID Attending Provider04/11/20 1403 --- Zhanna Harris MD([id number]) EPI ID CSN Admitting Provider [id number] Zhanna Harris MD([id number]) Attestation signed by Zhanna Harris MD at [...] the plan as noted above.Beto Harris M.D., [facility], [facility]Clinical Cardiac Electrophysiology04/11/2020 4:17 [...] history of tobacco useThe patient presented to [facility] for palpitations witha heart rate [...] 15 mg daily, although review of records zimrvpvr05 mg daily which would be the appropriate dose.The patient denies any history of TIA/CVA, CAD, PAD. Reports extensive testingin 2017 by her sql developer. She currently denies any symptoms other thanfatigue [...] file Gets together: Not on file Attends faith service: Not on file Active member of [...] symmetricSkin: No rash or lumps.Neurologic: Grossly normalDiagnosticsLabs, [facility]:Glucose 94Creatinine 0.68Sodium 138Potassium 4.1AST 49ALT 76Mag [...] amiodarone, she wasloaded [facility]. Continue oral cardizem. Start PO amiodarone.Monitor blood pressure and heart rate. Continue Xarelto, 20mg dose as she hasnormal creatinine.Plan RFA ablation for tomorrow. Further recommendations per Dr. Harris.Follow up with Dr. Galarza in 1-2 weeks after discharge.Signature: MIRELLA Cliftonate: April 11, 2020Time: 2:11 PM Name Value Range Interpretation Code Description Data Kathi rce(s) Supporting Document(s) ID Date Data Source [id number] 04/11/2020 04:54:08 PM EST [facility] Name Value Range Interpretation Code Description Data Kathi rce(s) Supporting Document(s) SODIUM 142 mmol/L (136-145) [facility] POTASSIUM 4.5 mmol/L (3.6-5.2) [facility] CHLORIDE 105 mmol/L (100-108) [facility] CO2 24 mmol/L (22-31) [facility] ANION GAP 13 mmol/L (7-16) [facility] UREA NITROGEN 17 mg/dL (7-24) [facility] CREATININE 0.70 mg/dL (0.60-1.00) [facility] BUN/CREAT RATIO 24.3 RATIO (10.0-20.0) H [facility] GLUCOSE 78 mg/dL (70-99) [facility] CALCIUM 9.4 mg/dL (8.4-10.2) [facility] TOTAL PROTEIN 6.2 g/dL (6.4-8.2) L [facility] ALBUMIN 3.7 g/dL (3.2-4.5) [facility] GLOBULIN 2.5 g/dL (2.7-4.3) L [facility] ALB/GLOB RATIO 1.5 RATIO [facility] ALKALINE PHOSPHATASE 111 U/L (45-117) [facility] BILIRUBIN,TOTAL 0.9 mg/dL (0.0-1.0) [facility] PLEASE NOTE:Total bilirubin results may be falselyelevated in patients taking Eltrombopag. AST (SGOT) 51 U/L (11-39) H [facility] ALT (SGPT) 82 U/L (12-78) H [facility] GFR >60 ml/min/1.73m2 (>59) [facility] GFR ( AMER) >60 ml/min/1.73m2 (>59) [facility] GFR INTERPRETATION [facility] --NORMAL KIDNEY FUNCTION OR MILD DISEASE - GFR >OR= 60CHRONIC KIDNEY DISEASE - GFR 15 - 59RENAL FAILURE - GFR <15 Est. GFR calculation based on the MDRDstudy equation, which assumes a steadystate for creatinine. Est. GFR should notbe used for medication dosing. ID Date Data Source [id number] 04/11/2020 04:38:13 PM EST [facility] Name Value Range Interpretation Code Description Data Kathi rce(s) Supporting Document(s) APTT 31.3 s (22.0-34.3) [facility] PERFORMED AT [address] [place] [address] N Y [id number] ID Date Data Source [id number] 04/11/2020 04:38:13 PM EST [facility] Name Value Range Interpretation Code Description Data Kathi rce(s) Supporting Document(s) PT 11.7 s (9.2-11.9) [facility] PERFORMED AT [address] [place] [address] N [place] [address] INR 1.12 [facility] SUGGESTED THERAPEUTIC RANGES USING INR F ORSTABILIZED ANTICOAGULATED PATIENTS:STANDARD DOSE THERAPY INR 2.0-3.0 DVT, PE, PREVENT DVT OR EMBOLISMHIGH DOSE THERAPY INR 2.5-3.5 PREVENT EMBOLISM FROM MECHANICAL HEART VALVE ID Date Data Source [id number] 04/11/2020 04:31:31 PM EST [facility] Name Value Range Interpretation Code Description Data Kathi rce(s) Supporting Document(s) WBC 9.0 10*3/uL (4.1-11.0) [facility] [place] RBC 5.81 10*6/uL (4.00-5.40) [facility] HGB 19.1 g/dL (12.0-16.0) [facility] HCT 54.4 % (36.0-47.0) [facility] PERFORMED AT [address] [place], [place] [id number] N Y [address] MCV 93.7 fL (80.0-95.0) [facility] MCH 32.9 pg (27.0-32.0) [facility] MCHC 35.1 g/dL (32.0-36.0) [facility] RDW 12.8 % (10.5-14.5) [facility] PLT 274 10*3/uL (150-450) [facility] MPV 8.4 fL (7.1-10.7) [facility] ID Date Data Source [id number] 04/11/2020 02:17:21 PM EST [facility] Name Value Range Interpretation Code Description Data Kathi rce(s) Supporting Document(s) EKG [facility] HWVYWl5iBlICBwDjp6GvJnQgVUNhBT5zygo1U0D2qURpA6QdnPHmc7bsJ8DyM8JqWGZoLJWFQD9TuRXe jb2 [file] xFQREkPSVxAdydytfi0cjdTmxtBMvQ8mQ4lOLkjPC4oHwF62vywacL9SgylsZm2nArfMS/dV95kjT/area intelligence technician tl/PTGqmJRInj6zYScTMxtAPdhbT4W80dl+YixVeWI0R1hE2wQkUTLjrTUeugK6AJLi1VmSe0VG8hTMk lGvGsRSVDGWusKn/nJfWpiGOJZRgxLHoZ//zX//7P/ 4hP7urAP9c//7nf/1f9f/45z//zz//539Yl/fx32tMk/yrJ5Svme39E1elzao3+D+s/HsFlfrpr/2HLW fix88zIbcpA/xcO1hL1bpV9W0/EK5xfq5ACOIuCqD0mONBoNvMnW5hhX46l2iex1cIeUE/4/0lR4oB2c WF2whm15+egf9+4IiN4V/W5Qb6/4l86R6vxAG+fO2r iW2Wjabmie1v2s1w17+4rSkK/q/9d+7/2h8k/r0wjF/7hp2ACqD/eptqSNc11xfgc+XbxoPKcf7Cn6NB b9x+JHx6lImdV+NyrT4k/Wn2AYoL+yUJaeJ+iu3G00y3/JUyz75GecPHU0oq+708nUtYjhxdFG4wy6vT +4lXTyMqPGky7/fK/GEP29/qrAJs8M9H2vjq83FhG2 5vV/RMytgHfH/5vueVI93KtNS7zMjHl4QZki/2ugoc+NpHoQLW/sbdj0v/3wE6miQ9YxWxZtP7oqE0vP 0EJdLDxfx2Xxtv0Wq5Z+j+5VD2sH3yhYbq/4Fc6b+Egwzm2Fqgpb4Ra8gdziy1iwTGc5/4Fr//4O21u/ 1a2M7dEUQQIZhjmq1OZuP/byEOEryqeba8Of0bse8H sHtayYmBaqnlRJjWjS1tnCfnRGwz/Z10YZ+3bvCO/V6noWPJxGF21XbkxhW23ghXinUc/kMWAimDW6Xy CreIMAReESjM/8Vlf3SPFxH/zVT+egeE4Sx0mtejHC0o4U/7j3gN9NJcYKoHez/7jI4rHkdC8kveL5+O 8IoQs8ud62bLek/tWMk2ZX1cObqaM/LewhJqiR8UsK /vQUhY9QsZ9LEtff1XNqFO7ExLnAElst6TBLXKA3Oi4ZO7BF/+Nqq7H9OLM68sBVaQPd0g/fv7fZW++1 1N3dU68eu16IjfzZW6hrPx7ySU3z63C3I4pZtXyLEQpYwbkhOwPM+llkdLkr8PYV0ydjYWm8w9QB9Z4+ Dj+EQ6dkBLf+u/oIgy7mL0Pf6TyoIjPTbilRRyniS9 VctQrvLNp6enwD2JX5zjCZfX8uopUwzR9UjKBE9NuEwNyJTr25AlJ5q9CE7LMHTmQhATX+9LAzQvm8Gt ZeC8U2gsyXGyEowqoz+OIaTdRAfbjORbmhnP0fzta83/35JdeHn2d3LWahahtnU10oxA27TqQwpIzbPm y635d+IVnnUnXkGeO/HCkSVIY0kUJxiEikQgVPpqmF xX9xY45q+niJG5sRLJvOF/vLFA2rr/38F5ZO9mZ9tfOhQBeJ4Ejex5X2Zcwu/cj2RVqsR8NNBVnMk+5I Aq2ybOsGgSi6enhu/SD6jsD1x4+82w/94k02XWCD/hnfibG/44SpgCNlX7TwK/eHfgmRAewjEhPRB+iX [place]/cjeCXi+H9K9iXGN+CSCNkAXhFDOvUr/m19iG1K 7gjpZvBG/WYD8mH9VbuBKzZpA14Sk+Hm5lL9JK3Egwc/cwWv/437d2P/kO2522Je2rqMKwOcYrOvb/Chelly [file] rvY4c2UMWeSYohUY0txhVcKVYtXdjpVu3qvZN3EWVmVifVCu3Fl0FwneP4vyPhNrVxVMr6KsPkTF6Y ID Date Data Source [id number] 04/11/2020 09:13:00 AM EST [facility]) Name Value Range Interpretation Code Description Data Kathi rce(s) Supporting Document(s) Magnesium Level 2.2 [facility] ([facility]) ID Date Data Source [id number] 04/11/2020 09:13:00 AM EST [facility] Name Value Range Interpretation Code Description Data Kathi rce(s) Supporting Document(s) Sodium 138 [facility] ([facility]iology [facility]) Calcium [Mass/volume] in Serum or Plasma 9.2 [facility] ([facility]) Chloride [Moles/volume] in Serum or Plasma 106 [facility] ([facility]) Carbon dioxide, total [Moles/volume] in Serum or Plasma 25 [facility] ([facility]) Blood Urea Nitrogen 15 5-21 [facility] ([facility]) Potassium [Moles/volume] in Serum or Plasma 4.1 [facility] ([facility]) Glucose 94 70-100 [facility] Creatinine 0.68 0.6-1.5 [facility] ([facility]) Glomerular filtration rate/1.73 sq M.pre dicted [Volume Rate/Area] in Serum or Plasma by Creatinine-based formula (MDRD) 60.0 [facility] ([facility]) ID Date Data Source [id number] 04/11/2020 09:13:00 AM EST [facility] ([facility]) Name Value Range Interpretation Code Description Data Kathi rce(s) Supporting Document(s) Alkaline phosphatase [Enzymatic activity/volume] in Serum or Plasma 1 04 [facility] ([facility]) Aspartate aminotransferase [Enzymatic activity/volume] in Serum or Plasma 49 [facility] ([facility]) Bilirubin.total [Mass/volume] in Serum or Plasma 0.7 [facility] ([facility]) Alanine aminotransferase [Enzymatic activity/volume] in Serum or Pl asma 76 [facility] ([facility]) Bilirubin.direct [Mass/volume] in Serum or Plasma 0.3 [facility] ([facility]) Protein [Mass/volume] in Serum or Plasma 6.0 [facility] ([facility]) Albumin [Mass/volume] in Serum or Plasma 3.4 [facility] ([facility]) Cholesterol [Mass/volume] in Serum or Plasma Laboratory test result [facility] ([facility]) ID Date Data Source [id number] 04/11/2020 09:13:00 AM EST [facility] ([facility]) Name Value Range Interpretation Code Description Data Kathi rce(s) Supporting Document(s) White Blood Count 10.1 4.3-10.9 [facility] ([facility]) Platelets 279 130-400 [facility] Red Blood Count 5.54 4.70-6.20 [facility] ([facility]) Hematocrit 51.3 39.0-50.0 [facility] ([facility]) Hemoglobin 17.7 13.0-17.0 [facility] ([facility]) ID Date Data Source [id number] 04/10/2020 01:21:00 PM EST [facility] Name Value Range Interpretation Code Description Data Kathi rce(s) Supporting Document(s) SARS coronavirus 2 RNA [Presence] in Res piratory specimen by RISHABH with probe detection [facility] This lab was ordered by [facility] a nd reported by [facility]. ID Date Data Source [id number] 04/10/2020 12:55:00 PM EST [facility] ([facility]) Name Value Range Interpretation Code Description Data Kathi rce(s) Supporting Document(s) White Blood Count 5.9 10 4.0-10.0 Normal (applies to non-numeri c results) [facility] ([facility]) Red Blood Count 5.60 10 4.00-5.40 Above high normal [facility] ([facility]) Hematocrit 53.3 % 36.0-47.0 Above high normal [facility] Hemoglobin 17.4 g/dL 12.0-15.5 Above high normal [facility] ([facility]) Mean Corpuscular HGB Conc 32.6 g/dL 32.0-36.5 Normal (applies to non-numeric results) [facility] Mean Corpuscular Hemoglobin 31.1 pg 27.0-33.0 Norm al (applies to non-numeric results) [facility] ([facility]) Mean Corpuscular Volume 95.2 fl 80.0-96.0 Normal ( applies to non-numeric results) [facility] ([facility]) Red Cell Distribution Width 12.2 % 11.5-14.5 Norm al (applies to non-numeric results) [facility] ([facility]) Platelet Count, Automated 263 10 150-450 Normal (applies to non-numeric results) [facility] ([facility]) Nucleated Red Blood Cell % 0.0 % 0-0 Normal (applies to n on-numeric results) [facility] ([facility]) ID Date Data Source [id number] 04/10/2020 12:55:00 PM EST [facility] ([facility]) Name Value Range Interpretation Code Description Data Kathi rce(s) Supporting Document(s) Glucose, Fasting 84 mg/dL 70-100 Normal (applies to non-numeric results) [facility] Blood Urea Nitrogen 17 mg/dL 7-18 Normal (applies to non-nume kelly results) [facility] ([facility]) Creatinine For GFR 0.69 mg/dL 0.55-1.30 Normal (applies to non -numeric results) [facility] ([facility]) Sodium Level 141 meq/L 136-145 Normal (applies to non-numeric res ults) [facility] ([facility]) Glomerular Filtration Rate Laboratory test result Normal (applies to non- numeric results) [facility] ([facility]) <content>Units are mL/min/1.73 m2</content>
<content></content>
<content>Chronic Kidney Disease Staging per NKF:</content>
<content></content>
<content>Stage I & II GFR >=60 Normal to Mildly Decreased</content>
<content>Stage III GFR 30- 59 Moderately Decreased</content>
<content>Stage IV GFR 15-29 Severely Decreased</content>
<content>Stage V GFR <15 Very Little GFR Left</content>
<content>ESRD GFR <15 on CHOKER SETTER</content>
<content></content> Chloride Level 107 meq/L 98-107 Normal (applies to non-numeric r esults) [facility] ([facility]) Potassium Serum 4.0 meq/L 3.5-5.1 Normal (applies to non-numeric results) [facility] ([facility]) Carbon Dioxide Level 27 meq/L 21-32 Normal (applies to non-num pop results) [facility] ([facility]) Calcium Level 8.6 mg/dL 8.8-10.2 Below low normal [facility] ([facility]) Ast/Sgot 40 U/L 7-37 Above high normal [facility] ([facility]) Anion Gap 7 meq/L 8-16 Below low normal [facility] ( [facility]) Alkaline Phosphatase 95 U/L 45-117 Normal (applies to non-num pop results) [facility] Alt/SGPT 69 U/L 12-78 Normal (applies to non-numeric resul ts) [facility] ([facility]) Bilirubin,Total 0.5 mg/dL 0.2-1.0 Normal (applies to non-numeric results) [facility] Total Protein 5.7 GM/DL 6.4-8.2 Below low normal [facility] ([facility]) Albumin 3.4 GM/DL 3.2-5.2 Normal (applies to non-numeric resul ts) [facility] ([facility]) Albumin/Globulin Ratio 1.5 1.2-2.2 Normal (applies to non-n umeric results) [facility] ([facility]) ID Date Data Source [id number] 04/10/2020 12:55:00 PM EST [facility] ([facility]) Name Value Range Interpretation Code Description Data Kathi rce(s) Supporting Document(s) CPK Creatine Phosphokinase 47 U/L 26-192 Queenie l (applies to non-numeric results) [facility] ([facility]) CK-MB Value Mass 1.2 ng/mL Normal (applies to non-numeric results) [facility] ([facility]) Troponin I Laboratory test result Normal (applies to non-n umeric results) [facility]) <content>Troponin I Reference Interval f or Siemens Sebree LOCI:</content>
<content></content>
<content>99th Percentile= 0.00-0.045 ng/ml</content>
<content></content>
<content>Risk Stratification:</content>
<content><= 0.10 ng/ml Decreased Risk for Adverse Clinical</content>
<content>Events.</content>
<content>0.10-1.50 ng/ml Increased Risk for Adverse Clinical</content>
<content>Events. Evaluation of additional</content>
<content>criterion and/or repeat testing in 2-6</content>
<content>hours is suggested to rule out myocardial</content>
<content>damage.</content>
<content>>= 1.50 ng/ml Indicative of Myocardial Injury.</content>
<content></content> MB/CK Relative Index 2.55 Normal (applies to non-num pop results) [facility] <content>DIAGNOSIS CRITERIA</content>
<content>MMB ng/ml Relative Index (RI)</content>
<content>NON-AMI < or = 5 N/A</content>
<content>NGUYEN ZONE > 5 < or = 4</content>
<content>AMI > 5 > 4</content>
<content></content> ID Date Data Source [id number] 04/10/2020 08:45:00 AM EST [facility] ([facility]) Name Value Range Interpretation Code Description Data Kathi rce(s) Supporting Document(s) Laboratory test finding (navigational concept) 1.3 Normal (applies to non- numeric results) [facility] ([facility]) Laboratory test finding (navigational concept) 15.8 s 1 2.1-14.4 Above high normal [facility] ([facility]) ID Date Data Source [id number] 04/10/2020 08:34:00 AM EST [facility] ([facility]) Name Value Range Interpretation Code Description Data Kathi rce(s) Supporting Document(s) Laboratory test finding (navigational concept) 0.00 ng/mL 0 .00-0.08 Normal (applies to non-numeric results) [facility] ([facility]) ID Date Data Source [id number] 04/10/2020 08:33:00 AM EST [facility] ([facility]) Name Value Range Interpretation Code Description Data [...] MM/L 2 3.0-27.0 Above high normal [facility] ([facility]) Laboratory test finding (navigational concept) 0.8 mg/dL 0 .6-1.3 Normal (applies to non-numeric results) [facility] ([facility]) Laboratory test finding (navigational concept) 20 mg/dL 8 -26 Normal (applies to non-numeric results) [facility] ([facility]) ID Date Data Source [id number] 04/10/2020 08:30:00 AM EST [facility] ([facility]) Name Value Range Interpretation Code Description Data Kathi rce(s) Supporting Document(s) Hemoglobin 17.4 g/dL 12.0-15.5 Above high normal [facility] ([facility]) Red Blood Count 5.60 10 4.00-5.40 Above high normal [facility] ([facility]) White Blood Count 5.9 10 4.0-10.0 Normal (applies to non-numeri c results) [facility] ([facility]) Hematocrit 53.3 % 36.0-47.0 Above high normal [facility] ([facility]) Mean Corpuscular Volume 95.2 fl 80.0-96.0 Normal ( applies to non-numeric results) [facility] ([facility]) Mean Corpuscular Hemoglobin 31.1 pg 27.0-33.0 Norm al (applies to non-numeric results) [facility] Red Cell Distribution Width 12.2 % 11.5-14.5 Norm al (applies to non-numeric results) [facility] ([facility]) Platelet Count, Automated 263 10 150-450 Normal (applies to non-numeric results) [facility] ([facility]) Mean Corpuscular HGB Conc 32.6 g/dL 32.0-36.5 Normal (applies to non-numeric results) [facility] Nucleated Red Blood Cell % 0.0 % 0-0 Normal (applies to n on-numeric results) [facility]) ID Date Data Source [id number] 04/10/2020 08:30:00 AM EST [facility] ([facility]) Name Value Range Interpretation Code Description Data Kathi rce(s) Supporting Document(s) Thyrotropin [Units/volume] in Serum or Plasma 2.030 uIU/ML 0. 358-3.740 Normal (applies to non-numeric results) [facility] ([facility]) ID Date Data Source [id number] 04/07/2020 11:45:00 AM EST [facility] ([facility]) Name Value Range Interpretation Code Description Data Kathi rce(s) Supporting Document(s) EKG Laboratory test result [facility] ([facility]) ID Date Data Source [id number] 04/03/2020 10:53:00 AM EST [facility] ([facility]) Name Value Range Interpretation Code Description Data Kathi rce(s) Supporting Document(s) Magnesium Level 2 [facility] ([facility]) ID Date Data Source [id number] 04/03/2020 10:53:00 AM EST [facility] ([facility]) Name Value Range Interpretation Code Description Data Kathi rce(s) Supporting Document(s) Alanine aminotransferase [Enzymatic activity/volume] in Serum or Pl asma 61 [facility] ([facility]) Calcium [Mass/volume] in Serum or Plasma 8.6 [facility] ([facility]) Albumin [Mass/volume] in Serum or Plasma 3.3 [facility] ([facility]) Carbon dioxide, total [Moles/volume] in Serum or Plasma 27 [facility] ([facility]) Alkaline phosphatase [Enzymatic activity/volume] in Serum or Plasma 9 7 [facility] ([facility]) Potassium [Moles/volume] in Serum or Plasma 4.4 [facility] ([facility]) Chloride [Moles/volume] in Serum or Plasma 104 [facility] ([facility]) Protein [Mass/volume] in Serum or Plasma 5.8 [facility] ([facility]) Sodium 139 [facility] ([facility]) Urea nitrogen [Mass/volume] in Serum or Plasma 26 [facility] ([facility]) Aspartate aminotransferase [Enzymatic activity/volume] in Serum or Plasma 30 [facility] ([facility]) Glucose 86 70-100 [facility] ([facility]) Creatinine For GFR 0.81 [facility] ([facility]) ID Date Data Source [id number] 04/03/2020 10:53:00 AM EST [facility] ([facility]) Name Value Range Interpretation Code Description Data Kathi rce(s) Supporting Document(s) White Blood Count 7.7 4.3-10.9 [facility] ([facility]) Red Blood Count 5.34 4.70-6.20 [facility] ([facility]) Platelets 268 130-400 [facility] Hemoglobin 17.1 13.0-17.0 [facility] ([facility]) Hematocrit 50.9 39.0-50.0 [facility] ([facility]) ID Date Data Source [id number] 04/02/2020 04:00:00 AM EST [facility] Name Value Range Interpretation Code Description Data Kathi rce(s) Supporting Document(s) SARS coronavirus 2 RNA [Presence] in Res piratory specimen by RISHABH with probe detection [facility] This lab was ordered by [facility] a nd reported by [facility]. ID Date Data Source [id number] 03/30/2020 06:13:00 PM EST [facility] ([facility]) Name Value Range Interpretation Code Description Data Kathi rce(s) Supporting Document(s) Thyrotropin [Units/volume] in Serum or Plasma 2.050 uIU/ML 0. 358-3.740 Normal (applies to non-numeric results) [facility] ([facility]) Thyroxine (T4) free [Mass/volume] in Serum or Plasma 1.30 ng/dL 0.76-1.46 Normal (applies to non-numeric results) [facility] ([facility]) Digoxin [Mass/volume] in Serum or Plasma 0.1 ng/mL 0.5-2.0 Below low normal [facility] ([facility]) ID Date Data Source [id number] 03/30/2020 06:13:00 PM EST [facility] ([facility]) Name Value Range Interpretation Code Description Data Kathi rce(s) Supporting Document(s) Glucose, Fasting 80 mg/dL 70-100 Normal (applies to non-numeric results) [facility] ([facility]) Blood Urea Nitrogen 22 mg/dL 7-18 Above high normal [facility] ([facility]) Creatinine For GFR 0.84 mg/dL 0.55-1.30 Normal (applies to non -numeric results) [facility] ([facility]) Glomerular Filtration Rate Laboratory test result Normal (applies to non- numeric results) [facility]) <content>Units are mL/min/1.73 m2</content>
<content></content>
<content>Chronic Kidney Disease Staging per NKF:</content>
<content></content>
<content>Stage I & II GFR >=60 Normal to Mildly Decreased</content>
<content>Stage III GFR 30- 59 Moderately Decreased</content>
<content>Stage IV GFR 15-29 Severely Decreased</content>
<content>Stage V GFR <15 Very Little GFR Left</content>
<content>ESRD GFR <15 on CHOKER SETTER</content>
<content></content> Sodium Level 141 meq/L 136-145 Normal (applies to non-numeric res ults) [facility]) Chloride Level 108 meq/L 98-107 Above high normal [facility] ([facility]) Potassium Serum 4.1 meq/L 3.5-5.1 Normal (applies to non-numeric results) [facility] ([facility]) Anion Gap 4 meq/L 8-16 Below low normal [facility] ( [facility]) Carbon Dioxide Level 29 meq/L 21-32 Normal (applies to non-num pop results) [facility] ([facility]) Calcium Level 8.7 mg/dL 8.8-10.2 Below low normal [facility] ([facility]) ID Date Data Source [id number] 03/30/2020 06:13:00 PM EST [facility] ([facility]) Name Value Range Interpretation Code Description Data Kathi rce(s) Supporting Document(s) Ast/Sgot 63 U/L 7-37 Above high normal [facility]) Bilirubin,Total 0.6 mg/dL 0.2-1.0 Normal (applies to non-numeric results) [facility] ([facility]) Alt/SGPT 100 U/L 12-78 Above high normal [facility] ([facility]) Alkaline Phosphatase 103 U/L 45-117 Normal (applies to non-num pop results) [facility] ([facility]) Bilirubin,Direct 0.2 mg/dL 0.0-0.2 Normal (applies to non-numeric results) [facility] ([facility]) Total Protein 6.1 GM/DL 6.4-8.2 Below low normal [facility] ([facility]) Albumin/Globulin Ratio 1.4 1.2-2.2 Normal (applies to non-n umeric results) [facility] ([facility]) Albumin 3.6 GM/DL 3.2-5.2 Normal (applies to non-numeric resul ts) [facility] ([facility]) ID Date Data Source [id number] 03/30/2020 06:13:00 PM EST [facility] ([facility]) Name Value Range Interpretation Code Description Data Kathi rce(s) Supporting Document(s) CK-MB Value Mass 3.0 ng/mL Normal (applies to non-numeric results) [facility] ([facility]) CPK Creatine Phosphokinase 82 U/L 26-192 Queenie l (applies to non-numeric results) [facility] ([facility]) Troponin I Laboratory test result Normal (applies to non-n umeric results) [facility] ([facility] [facility]) <content>Troponin I Reference Interval f or Siemens Sebree LOCI:</content>
<content></content>
<content>99th Percentile= 0.00-0.045 ng/ml</content>
<content></content>
<content>Risk Stratification:</content>
<content><= 0.10 ng/ml Decreased Risk for Adverse Clinical</content>
<content>Events.</content>
<content>0.10-1.50 ng/ml Increased Risk for Adverse Clinical</content>
<content>Events. Evaluation of additional</content>
<content>criterion and/or repeat testing in 2-6</content>
<content>hours is suggested to rule out myocardial</content>
<content>damage.</content>
<content>>= 1.50 ng/ml Indicative of Myocardial Injury.</content>
<content></content> MB/CK Relative Index 3.66 Normal (applies to non-num pop results) [facility] ([facility]) <content>DIAGNOSIS CRITERIA</content>
<content>MMB ng/ml Relative Index (RI)</content>
<content>NON-AMI < or = 5 N/A</content>
<content>NGUYEN ZONE > 5 < or = 4</content>
<content>AMI > 5 > 4</content>
<content></content> ID Date Data Source [id number] 03/30/2020 06:13:00 PM EST [facility] ([facility]) Name Value Range Interpretation Code Description Data Kathi rce(s) Supporting Document(s) aPTT in Platelet poor plasma by Coagulation assay 30.0 s 24.2-38.5 Normal (applies to non-numeric results) [facility] ([facility]) ID Date Data Source [id number] 03/30/2020 06:13:00 PM EST [facility] ([facility]) Name Value Range Interpretation Code Description Data Kathi rce(s) Supporting Document(s) Prothrombin Time 14.3 s 12.5-14.3 Above high normal [facility] Inr 1.09 Normal (applies to non-numeric resul ts) [facility] THERAPUTIC HUMAN INR VALUES INDICATIONS NORMAL RANGES PROPHYLAXIS/TREATMENT OF: VENOUS THROMBOSIS 2.0-3.0 PULMONARY EMBOLISM 2.0-3.0 PREVENTION OF SYSTEMIC EMBOLISM FROM: TISSUE HEART VALVES 2.0-3.0 ACUTE MYOCARDIAL INFARCTION 2.0-3.0 VALVULAR HEART DISEASE 2.0-3.0 ATRIAL FIBRILLATION 2.0-3.0 MECHANICAL VALVES(HIGH RISK) 2.5-3.5 RECURRENT MYOCARDIAL INFARCTION 2.5-3.5 ID Date Data Source [id number] 03/30/2020 06:13:00 PM EST [facility] ([facility]) Name Value Range Interpretation Code Description Data Kathi rce(s) Supporting Document(s) Red Blood Count 5.01 10 4.00-5.40 Normal (applies to non-numeric results) [facility] ([facility]) White Blood Count 10.1 10 4.0-10.0 Above high normal [facility] ([facility]) Hematocrit 48.1 % 36.0-47.0 Above high normal [facility] ([facility]) Mean Corpuscular Volume 96.0 fl 80.0-96.0 Normal ( applies to non-numeric results) [facility] ([facility]) Hemoglobin 16.3 g/dL 12.0-15.5 Above high normal [facility] ([facility] [...] NT ([facility]) Platelet Count, Automated 259 10 150-450 Normal (applies to non-numeric results) [facility] ([facility]) Eos % 0.1 % 0.0-3.0 Normal (applies to non-numeric resul ts) [facility] ([facility]) [place] % 9.0 % 0.0-5.0 Above high normal [...] [facility] ([facility]) [place] # 0.9 10 0.0-0.8 Above high normal [facility] ID Date Data Source [id number] 03/30/2020 06:11:00 PM EST [facility] ([facility]) Name Value Range Interpretation Code Description Data Kathi rce(s) Supporting Document(s) Ethanol [Mass/volume] in Serum or Plasma 0.003 % 0.000-0 .010 Normal (applies to non-numeric results) [facility] ([facility]) Magnesium [Mass/volume] in Serum or Plasma 2.3 mg/dL 1.8-2 .4 Normal (applies to non-numeric results) [facility] ([facility]) ID Date Data Source [id number] 10/18/2019 11:04:00 AM EDT [facility] ([facility]) Name Value Range Interpretation Code Description Data Kathi rce(s) Supporting Document(s) Alanine aminotransferase [Enzymatic activity/volume] in Serum or Pl asma 66 [facility] ([facility]) Albumin [Mass/volume] in Serum or Plasma 3.7 [facility] ([facility]) Carbon dioxide, total [Moles/volume] in Serum or Plasma 27 [facility] ([facility]) Chloride [Moles/volume] in Serum or Plasma 109 [facility] ([facility]) Calcium [Mass/volume] in Serum or Plasma 8.9 [facility] ([facility]) Alkaline phosphatase [Enzymatic activity/volume] in Serum or Plasma 8 1 [facility] ([facility]) Aspartate aminotransferase [Enzymatic activity/volume] in Serum or Plasma 33 [facility] ([facility]) Sodium 143 [facility] ([facility] Protein [Mass/volume] in Serum or Plasma 6.4 [facility] ([facility]) Potassium [Moles/volume] in Serum or Plasma 4.4 [facility] ([facility]) Creatinine For GFR 0.76 [facility] ([facility]) Urea nitrogen [Mass/volume] in Serum or Plasma 14 [facility] ([facility]) Glucose 90 70-100 [facility]) ID Date Data Source [id number] 10/18/2019 11:04:00 AM EDT [facility] ([facility]) Name Value Range Interpretation Code Description Data Kathi rce(s) Supporting Document(s) White Blood Count 5.5 4.0-10.0 [facility] ([facility]) Hematocrit 44.0 [facility] ([facility]) Hemoglobin 14.6 [facility] ([facility]) Platelets 245 150-450 [facility] ([facility] Red Blood Count 4.72 4.00-5.40 [facility] ([facility]) ID Date Data Source [id number] 08/30/2019 10:18:00 AM EDT [facility] ([facility]) Name Value Range Interpretation Code Description Data Kathi rce(s) Supporting Document(s) Tibc % Saturation 52.4 [facility] ([facility]) Iron binding capacity [Mass/volume] in Serum or Plasma 292 [facility]) Iron 153 50-170 [facility] ([facility]) ID Date Data Source [id number] 07/29/2019 10:16:00 AM EDT [facility] ([facility]) Name Value Range Interpretation Code Description Data Kathi rce(s) Supporting Document(s) Tibc % Saturation 40.3 [facility] ([facility]) Iron 129 50-170 [facility] ([facility] Iron binding capacity [Mass/volume] in Serum or Plasma 320 [facility] ([facility]) ID Date Data Source [id number] 07/29/2019 10:16:00 AM EDT [facility] ([facility]) Name Value Range Interpretation Code Description Data Kathi rce(s) Supporting Document(s) White Blood Count 8.8 4.0-10.0 [facility] ([facility]) Platelets 260 150-450 [facility] ([facility] Red Blood Count 4.81 4.0-5.40 [facility] ([facility]) Hematocrit 44.8 [facility] ([facility]) Hemoglobin 15.6 [facility] ([facility]) ID Date Data Source [id number] 07/02/2019 10:08:00 AM EDT [facility] Name Value Range Interpretation Code Description Data Kathi rce(s) Supporting Document(s) Red Blood Count 4.92 4.00-5.40 [facility] ([facility]) White Blood Count 6.4 4.0-10.0 [facility] ([facility]) Hematocrit 46.3 [facility] ([facility]) Platelets 297 150-450 [facility] Hemoglobin 15.5 [facility] ([facility]) ID Date Data Source [id number] 07/02/2019 10:08:00 AM EDT [facility] Name Value Range Interpretation Code Description Data Kathi rce(s) Supporting Document(s) Albumin [Mass/volume] in Serum or Plasma 3.8 [facility] ([facility]) Calcium [Mass/volume] in Serum or Plasma 9.3 [facility] ([facility]) Chloride [Moles/volume] in Serum or Plasma 107 [facility] ([facility]) Carbon dioxide, total [Moles/volume] in Serum or Plasma 32 [facility] ([facility]) Alanine aminotransferase [Enzymatic activity/volume] in Serum or Pl asma 90 [facility] ([facility]) Potassium [Moles/volume] in Serum or Plasma 4.2 [facility] ([facility]) Protein [Mass/volume] in Serum or Plasma 6.8 [facility] ([facility]) Alkaline phosphatase [Enzymatic activity/volume] in Serum or Plasma 9 0 [facility] ([facility]) Urea nitrogen [Mass/volume] in Serum or Plasma 19 [facility]) Sodium 142 [facility] Glucose 79 70-100 [facility] ([facility]) Aspartate aminotransferase [Enzymatic activity/volume] in Serum or Plasma 41 [facility] ([facility]) Creatinine For GFR 0.86 [facility] ([facility]) Procedure Social History Code Duration Value Status Description Data Source(s ) Smoking 04/19/2020 12:00:00 AM EST Patient is a former smoker completed [facility] is a [facility] sm[facility] Alcohol intake 04/13/2020 12:00:00 AM EST Not Currently completed [facility] Smoking 04/13/2020 12:00:00 AM EST Former smoker completed Former smoker [facility] Vital Signs ID Date Data Source UNK Name Value Range Interpretation Code Description Data Source(s) [place] body weight 115 [lb_av] 115 [lb_av] [facility] ([facility]) Oxygen saturation in Arterial blood by Pulse oximetry 98 % 98 % [facility] ([facility]) Body temperature 97.8 [degF] 97.8 [degF] [facility] ([facility]) Respiratory rate 18 /min 18 /min [facility] ( [facility]) Heart rate 57 /min 57 /min [facility] ([facility]) Body mass index (BMI) [Ratio] 23.1 kg/m2 23.1 k g/m2 [facility] ([facility]) Body weight 130.38 [lb_av] 130.38 [lb_av] [facility] ([facility]) Body height 63 [in_i] 63 [in_i] [facility] ([facility]) 5'3" Diastolic blood pressure 84 mm[Hg] 84 mm[Hg] [facility] ([facility]) Systolic blood pressure 148 mm[Hg] 148 mm[Hg] [facility] ([facility]) Diastolic blood pressure--sitting 86 mm[Hg] 86 mm[Hg] [facility] ([facility]) CBP, adult cuff/LA Systolic blood pressure--sitting 164 mm[Hg] 164 mm[Hg] [facility] ([facility]) CBP, adult cuff/LA Heart rate 51 /min 51 /min [facility] ([facility]) Body mass index (BMI) [Ratio] 23.0 kg/m2 23.0 k g/m2 [facility] ([facility]) Body height 63 [in_i] 63 [in_i] [facility]) 5'3" Body weight 130.00 [lb_av] 130.00 [lb_av] [facility] ([facility]) Oxygen saturation in Arterial blood by Pulse oximetry 97 % 97 % [facility] Respiratory rate 16 /min 16 /min [facility] Body temperature 36.67 [place] 36.67 [place] [facility] Heart rate 62 /min 62 /min [facility] Diastolic blood pressure 88 mm[Hg] 88 mm[Hg] [facility] Systolic blood pressure 150 mm[Hg] 150 mm[Hg] [facility] Body mass index (BMI) [Ratio] 23.03 kg/m2 23.03 kg/m2 [facility] Body weight 58.968 kg 58.968 kg [facility] Body height 160 cm 160 cm [facility] Systolic blood pressure 124 mm[Hg] 124 mm[Hg] [facility] ([facility]) [place] body weight 115 [lb_av] 115 [lb_av] [facility] ([facility]) Oxygen saturation in Arterial blood by Pulse oximetry 98 % 98 % [facility] ([facility]) [...] Body height 63 [in_i] 63 [in_i] [facility] ([facility]) 5'3" Diastolic blood pressure 74 mm[Hg] 74 mm[Hg] [facility] ([facility]) Diastolic blood pressure--sitting 78 mm[Hg] 78 mm[Hg] [facility] ([facility]) Systolic blood pressure--sitting 130 mm[Hg] 130 mm[Hg] [facility] ([facility]) Heart rate 67 /min 67 /min [facility]) Body mass index (BMI) [Ratio] 24.3 kg/m2 24.3 k g/m2 [facility] ([facility]) Body height 63 [in_i] 63 [in_i] [facility]) 5'3" Body weight 137.00 [lb_av] 137.00 [lb_av] [facility] ([facility]) [place] body weight 115 [lb_av] 115 [lb_av] [facility] [...] Body height 63 [in_i] 63 [in_i] [facility] ([facility]) 5'3" Diastolic blood pressure 74 mm[Hg] 74 mm[Hg] [facility] ([facility]) Systolic blood pressure 128 mm[Hg] 128 mm[Hg] [facility] ([facility]) [place] body weight 115 [lb_av] 115 [lb_av] [facility] [...] Body height 63 [in_i] 63 [in_i] [facility] ([facility]) 5'3" Diastolic blood pressure 78 mm[Hg] 78 mm[Hg] [facility] ([facility]) Systolic blood pressure 132 mm[Hg] 132 mm[Hg] [facility] ([facility]) Oxygen saturation in Arterial blood by Pulse oximetry 100 % 100 % [facility] ([facility] Body height 63 [in_i] 63 [in_i] [facility] ([facility]) 5'3" Diastolic blood pressure 80 mm[Hg] 80 mm[Hg] [facility] ([facility]) Systolic blood pressure 136 mm[Hg] 136 mm[Hg] [facility] ([facility]) Diastolic blood pressure--sitting 68 mm[Hg] 68 mm[Hg] [facility] ([facility]) adult cuff, Ra Systolic blood pressure--sitting 120 mm[Hg] 120 mm[Hg] [facility] ([facility]) adult cuff, Ra Heart rate 71 /min 71 /min [facility] ([facility]) Body mass index (BMI) [Ratio] 23.7 kg/m2 23.7 k g/m2 [facility] ([facility]) Body height 63 [in_i] 63 [in_i] [facility]) 5'3" Body weight 134.00 [lb_av] 134.00 [lb_av] [facility] ([facility]) Oxygen saturation in Arterial blood by [facility]ulse oximetry 99 % 99 % [facility] [...] [facility]) Body weight 134.25 [lb_av] 134.25 [lb_av] [facility] ([facility]) Body height 63 [in_i] 63 [in_i] [facility] ([facility]) 5'3" Diastolic blood pressure 64 mm[Hg] 64 mm[Hg] [facility] ([facility]) Systolic blood pressure 132 mm[Hg] 132 mm[Hg] [facility] ([facility]) Patient Treatment Plan of Care Planned Activity Planned Date Details Description Data Source (s) Amlodipine 5 MG Oral Tablet 04/14/2020 12:00:00 AM [facility] rivaroxaban 20 MG Oral Tablet 04/13/2020 12:00:00 AM [facility] rivaroxaban 15 MG Oral Tablet [facility] Diltiazem Hydrochloride 30 MG Oral Tablet [facility] Atenolol 25 MG Oral Tablet [facility]
[2020-05-31] MEDS ORDERED: D31000TA2 PO (00:03)
[2020-05-31] MEDS ORDERED: C 50TAB PO (00:03)
[2020-05-31] MEDS ORDERED: MAGN400T3 PO (00:03)
[2020-05-31] MEDS ORDERED: VITA400C53 PO (00:03)
[2020-05-31] MEDS ORDERED: ATIV1TAB10 PO (00:03)
[2020-05-31] MEDS ORDERED: BISO5TAB14 PO ×2 (00:03→08:36)
[2020-05-31] MEDS ORDERED: VALS1TAB66 PO (00:03)
[2020-05-31] MEDS ORDERED: XARE20TA PO (00:03)
[2020-05-31 00:26] LABS: MAGNESIUM LEVEL 2.1 MG/DL (1.8-2.4)
[2020-05-31] MEDS ORDERED: VALSARTAN 80 MG TAB (DIOVAN) PO SCH (01:00)
[2020-05-31] MEDS ORDERED: RIVAROXABAN 20 MG TAB (XARELTO) PO SCH (01:00)
[2020-05-31] MEDS ORDERED: LORazepam 0.5 MG TAB PO PRN (01:00)
[2020-05-31 02:30] VITALS: BP 152/89
[2020-05-31 06:00] VITALS: BP 123/70
[2020-05-31 07:50] VITALS: BP 131/71
[2020-05-31] MEDS ORDERED: bisoproloL fumarate 5 MG TAB PO SCH (09:00)
[2020-05-31] MEDS ORDERED: FLECAINIDE 50MG TABLET PO SCH (09:00)
[2020-05-31] MEDS ORDERED: MAGNESIUM OXIDE 400MG TAB (MAG-OX) PO SCH (09:00)
[2020-05-31 11:01] VITALS: BP 131/71
--- NOTE | 2020-05-31 16:31 | ECGEPIP ---
[facility] - ED Test Date: 2020-05-30 Pat Name: MERCY RIVERA Department: Room: [place] [address] Gender: Female [employer] App[employer]ice: AMAURI : [id number] Requested By: Rai Sargent Order Number: [id number] Reading MD: Jacques Matta Measurements Intervals [place] Rate: 86 P: 45 [place]: 136 QRS: 48 QRSD: 90 T: 43 QT: 384 QTc: 459 Interpretive Statements Sinus rhythm with sinus arrythmia Similar to tracing done 414 on same date Electronically Signed on 05-31-2020 16:30:41 EST by Jacques Matta
--- NOTE | 2020-05-31 18:48 | DS.PDOC ---
Discharge Summary General Date of Admission May 30, 2020 at 19:12 Date of Discharge 05/31/20 Attending Physician: Shameka Wolfe MD Discharge Summary HISTORY OF PRESENT ILLNESS: This 65 yr old F has a hx of A. flutter that was managed with ablation that was done at [facility], despite ablation she subsequently developed A fib; has referred her to () in [place]. For several months she has been having episodes of right upper abdominal/ lower chest pain that is followed by a "burst" sensation that moves to the left of the chest which is subsequently followed by palpitations. Early AM on 05/30/20 she felt dizzy and shaky; she checked her pulse and thought that it was low therefore she came to the ER for evaluation and was found to be in Afib with RVR. She was told that her pulse appeared to be low because the pulse oximeter was not capturing all of the heart beats. The ER providers electronic parts designer discussed the case with who recommended giving her 100mg of Flecanide. Shortly thereafter she was sent home, but at about 3PM she felt light headed, short of breath and tired therefore she came back to the ER where she was again found to be in RVR. consulted who recommended giving a second dose of 100mg of flecainide and 5mg bisoprolol. At the time of my evaluation she reported feeling better and was rate controlled but requested admission for observation. HOSPITAL COURSE: Patient remained rate controlled throughout the evening with HR in 50's. Discussed case with covering animal care assistant, Dr. Jasso who suggested Flecainide 50 mg PO BID and daily bystolic at discharge. In the AM on 05/31/20 patient was much improved. She explained that she was previously on flecainide but it was stopped due to bradycardia. It was explained that she should follow up with cardiology at discharge and discuss medications at that time. She was in agreement. I also encouraged her to check her pulse regularly on the medications being sent home on and, if bradycardic or having abnormal symptoms, to report them immediately. At time of discharge she denied chest pain, fevers, chills, n/v/d, shortness of breath. PMH/PSH: Longstanding persistent atria fibrillation Biatrial enlargement Hx of A. 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 DISCHARGE MEDICATIONS: Please see below. PHYSICAL EXAMINATION: Vital Signs: Please see below GENERAL APPEARANCE: Well nourished / well developed/ NAD INTEGUMENT: no facial flushing HEENT: EOMI / lower face covered with mask CARDIOVASCULAR: atrial fib, rate controlled / NMRG LUNGS: CTAB on RA ABDOMEN: flat MUSCULOSKELETAL: NCAT/ RAÚL x 4 / no lower leg swelling NEUROLOGICAL: CN 2-12 intact / speech not dysarthric PSYCHIATRIC: A &OX 3 / able to understand and follow all commands EKG: NSR with a rate of 86 Echo Mar 2020 CONCLUSIONS: * Moderate concentric left ventricular hypertrophy with mild reduction of LV cavity size. Normal regional LV wall motion and wall thickening. Normal LV sys tolic function. LVEF of 65% by visual assessment. LV diastolic function could not be adequately accessed in the setting of atrial flutter. * Severe left atrial dilatation by left atrial volume index. * Moderate aortic valve sclerosis of a 3-cuspid aortic valve. No aortic regurgitation or aortic stenosis. * Moderate mitral annular calcification. Moderate mitral regurgitation with a posteriorly directed wall jet. No mitral valve prolapse. * Structurally normal appearing tricuspid leaflets. Severe tricuspid regurgitation suggestive of moderate elevation of estimated right ventricle systolic pressure (43 mmHg), estimated right atrial pressure of 15 mmHg. * Moderate right atrial dilatation. * Small intraventricular septal defect most likely an inlet ventricular septal defect (VSD) with a small amount of left ventricle to right ventricle shunting. The differential diagnosis would include perimembranous VSD or an overlap between a perimembranous VSD and an inlet VSD. No right ventricle to left ventricle shunting observed by color flow Doppler. * No atrial septal defect. * Small pericardial effusion without diastolic chamber collapse. LABORATORY DATA: Please see below IMAGING: CXR: no acute findings ASSESSMENT: is a 65 yr old F w a hx of Longstanding persistent atria fibrillation that occurred after having an ablation for a flutter, Biatrial enlargement, aortic valve sclerosis, mitral valve regurgitation / mitral annular calcification, Severe tricuspid regurgitation & Moderate Pulm HTN who presented 2 times within 24H for rapid afib; she was admitted for observation overnight pending additional cardiology recs. PLAN: Atrial fibrillation, chronic -She is currently rate controlled, HR 50's -D/c home today with flecainide BID, daily bystolic -F/u with local animal care assistant, PCP and physician in [place] as already scheduled. -She is to report any worsening symptoms immediately. Mitral and Tricuspid Valvulopathy -F/u with for surveillance Chronic Erythrocytosis -EPO was 3 which is within NL -She is not hypoxemic and is no longer a smoker -F/u with PCP for work up DISPOSITION: Discharging home today to f/u with local animal care assistant, animal care assistant in [place] and PCP. SHe is advised to monitor HR closely at home. TIME SPENT ON DISCHARGE: 35 minutes. Vital Signs/I&Os Vital Signs Date Time Temp Pulse Resp B/P (MAP) Pulse Ox O2 Delivery O2 Flow Rate FiO2 05/31/20 11:01 57 131/71 05/31/20 06:00 98.2 18 98 Room Air I&O- Last 24 Hours up to 6 AM 05/31/20 06:00 Intake Total 160 ml Output Total 150 ml Balance 10 ml Laboratory Data Labs 24H Laboratory Tests 2 05/30/20 19:38: Immature Granulocyte % (Auto) 0.4, Neutrophils (%) (Auto) 61.0, Lymphocytes (%) (Auto) 27.2, Monocytes (%) (Auto) 10.5H, Eosinophils (%) (Auto) 0.6, Basophils (%) (Auto) 0.3, Neutrophils # (Auto) 5.9, Lymphocytes # (Auto) 2.7, Monocytes # (Auto) 1.0H, Eosinophils # (Auto) 0.1, Basophils # (Auto) 0.0, Nucleated Red Blood Cells % (auto) 0.0, Anion Gap 10, Glomerular Filtration Rate > 60.0, Calcium Level 8.8, Magnesium Level 2.1, Total Creatine Kinase 64, Creatine Kinase MB 1.2, Creatine Kinase MB Relative Index 1.88, Troponin I < 0.02 CBC/BMP Laboratory Tests 05/30/20 19:38 Microbiology Microbiology 05/31/20 Respiratory Virus Panel (PCR) ([facility]) - Final, Complete Discharge Medications Scheduled Ascorbic Acid (Vitamin C) 500 Mg Tablet, 500 MG PO DAILY, (Reported) Bisoprolol Fumarate (Bisoprolol Fumarate) 5 Mg Tablet, 5 MG PO DAILY HOLD IF HR<90 Cholecalciferol (Vitamin D3) (Vitamin D3) 1,000 Unit Tablet, 1,000 UNITS PO [place] LY, (Reported) Flecainide Acetate (Flecainide Acetate) 50 Mg Tablet, 50 MG PO BID, (Reported) Magnesium Oxide (Magnesium Oxide) 400 Mg Tablet, 400 MG PO DAILY, (Reported) Rivaroxaban (Xarelto) 20 Mg Tablet, 20 MG PO QPM, (Reported) TAKES AT DINNERTIME Valsartan (Valsartan) 80 Mg Tablet, 80 MG PO QHS, (Reported) Vitamin E (Vitamin E) 400 Unit Capsule, 400 UNIT PO DAILY, (Reported) Scheduled PRN Lorazepam (Ativan) 0.5 Mg Tablet, 0.5 MG PO DAILY PRN for ANXIETY, (Reported) STARTED 05/26/20 Allergies Coded Allergies: Sulfa (Sulfonamide Antibiotics) (Verified Allergy, Mild, rash, 05/30/20) Shameka Wolfe MD May 31, 2020 18:48
== END 2020-05-31 13:44 | disposition home or self-care (01) ==
LOC: M ED 19:11 → M ED INP 19:12 → M MSPAV 05-31 02:25
PROVIDERS: ADMIT Internal Medicine; ATTEND Internal Medicine
DX: I48.20 Chronic atrial fibrillation, unspecified (principal); I48.92 Unspecified atrial flutter; I35.8 Other nonrheumatic aortic valve disorders; I34.9 Nonrheumatic mitral valve disorder, unspecified; D75.0 Familial erythrocytosis; Z79.899 Other long term (current) drug therapy; Z88.2 Allergy status to sulfonamides; Z79.01 Long term (current) use of anticoagulants; Z87.891 Personal history of nicotine dependence
CPT/HCPCS: 71045; 80048; 80076; 82550; 82553; 83690; 83735; 84100; 84439; 84443; 84484; 85025; 85610; 85730; 87798; 93005; 93041; 94760; 99285; G0378

== ENCOUNTER → 2020-06-07 | Outpatient (CLI) | payer MEDICARE, OTHER ==
[~2020-06-07] MED LIST changes: +BISO5TAB14 PO; +C 50TAB PO; +D 50CAP2 PO; +D31000TA2 PO; +FLEC10TA PO; +VALS1TAB66 PO; +VITA400C53 PO; +VITATAB73 PO
== END ==
LOC: M LABSMTC 11:55
PROVIDERS: ATTEND Anesthesiology
DX: Z01.812 Encounter for preprocedural laboratory examination (principal); Z20.822 Contact with and (suspected) exposure to COVID-19

== ENCOUNTER 2020-06-09 12:20 | Day surgery (SDC) | payer MEDICARE, OTHER ==
[~2020-06-09] VITALS: Ht 160 cm; Wt 58.4 kg
[~2020-06-09 12:20] MED LIST changes: +LR 1,000 ML IV ONE; +ceFAZolin SOD 1 GM in D5W MINI-BAG PLUS 50 ML IV ONE
[2020-06-09] MEDS ORDERED: LIDOCAINE 1% MDV 20ML VIAL As Ordered ONE (13:12)
[2020-06-09 14:45] VITALS: BP 132/58
--- NOTE | 2020-06-10 08:39 | RO ---
OPERATIVE NOTE DATE OF OPERATION: 06/09/2020 PREOPERATIVE DIAGNOSIS: Atrial fibrillation management. POSTOPERATIVE DIAGNOSIS: Atrial fibrillation management. FINDINGS: Atrial fibrillation management. PROCEDURE PERFORMED: Implantation of a Medtronic first generation LINQ subcutaneous cardiac rhythm monitor. SURGEON: Jacques Galarza MD. GORE SEAMER: None. ANESTHESIA: Lidocaine 1% local/monitored anesthetic care. SPECIMENS: None. ESTIMATED BLOOD LOSS: Less than 1 mL. No blood products replaced. DRAINS: No drains. COMPLICATIONS: No complications. PROCEDURE DESCRIPTION: The patient was prepped over the sternum and left anterior chest. Lidocaine 1% was used for local anesthetic. An incision approximately 1 cm in length was made with a #15 blade through the skin at the fourth left interspace about 1 inch lateral to the left parasternal border. The guide on the insertion tool was then placed into the incision and advanced parallel to the anterior chest wall in the subcutaneous tissue in a caudal direction. The insertion tool was rotated 180 degrees. The plunger was placed into the insertion tool and used to advance the cardiac rhythm monitor into the subcutaneous tissue. The plunger was removed and then the insertion tool was removed leaving the cardiac rhythm monitor in situ. The initial R wave amplitude measured 0.62 millivolts. P waves were visible. Next, a 4-0 Biosyn suture was applied subcuticular with the free ends protruding from the skin 1 cm from either side of the incision line, and this was used to temporarily approximate the skin as close as possible. Next, three layers of Dermabond was applied. The Biosyn suture was then pulled through the incision line and removed entirely from the incision. Patient tolerated the procedure well without any immediate complications. The subcutaneous cardiac rhythm monitor implanted was a Medtronic Reveal LINQ, model LNQ11, with serial number [id number].
== END 2020-06-09 15:06 | disposition home or self-care (01) ==
LOC: M SDC 12:20
PROVIDERS: ATTEND Internal Medicine Cardiovascular Disease
DX: I48.0 Paroxysmal atrial fibrillation (principal); I10 Essential (primary) hypertension; F41.9 Anxiety disorder, unspecified; Z79.899 Other long term (current) drug therapy; Z79.01 Long term (current) use of anticoagulants
CPT/HCPCS: 33285; C1764; J0690

== ENCOUNTER → 2020-10-07 | Outpatient (REF) | payer MEDICARE, OTHER ==
[~2020-10-07] MED LIST changes: -LR 1,000 ML IV ONE; -ceFAZolin SOD 1 GM in D5W MINI-BAG PLUS 50 ML IV ONE
[2020-10-07 12:26] LABS: CHOLESTEROL RISK RATIO 2.745 (<5)
== END ==
LOC: M LABDRAWC 11:18
PROVIDERS: ATTEND Internal Medicine Cardiovascular Disease
DX: E78.00 Pure hypercholesterolemia, unspecified (principal)

== ENCOUNTER → 2020-11-05 | Outpatient (CLI) | payer MEDICARE, OTHER ==
[~2020-11-05] MED LIST changes: +FLEC100T27 PO; -FLEC10TA PO
== END ==
LOC: M LAB 10:44
PROVIDERS: ATTEND Internal Medicine Cardiovascular Disease
DX: I49.1 Atrial premature depolarization (principal)

== ENCOUNTER → 2021-01-04 | Outpatient (CLI) | payer MEDICARE, OTHER ==
[~2021-01-04] MED LIST changes: +DILT120C77 PO; +MAGN120C2 PO; +POTA-136 PO; +SIMETHICONE PO; +VITA50TA43 PO
== END ==
LOC: M LABSMTC 10:43
PROVIDERS: ATTEND Anesthesiology
DX: Z01.818 Encounter for other preprocedural examination (principal); Z11.52 Encounter for screening for COVID-19

== ENCOUNTER 2021-01-09 12:43 | Day surgery (SDC) | payer MEDICARE, OTHER ==
[~2021-01-09] VITALS: Ht 160 cm; Wt 58.0 kg
[2021-01-09] MEDS ORDERED: propofoL 500 MG/50 ML VIAL As Ordered ONE (13:41)
[2021-01-09] MEDS ORDERED: LIDOCAINE 2% 100MG/5ML SDV (FOR ANES.) As Ordered ONE (13:41)
[2021-01-09] MEDS ORDERED: fentaNYL 100 MCG/2 ML INJECTION (J3010) As Ordered ONE (13:42)
--- NOTE | 2021-01-09 14:54 | ROOR ---
Patient Name: Nela Arreola Procedure Date: 01/09/2021 2:20 PM Date of : 1955 Age: 65 Room: [facility] Gender: Female Note Status: Finalized Procedure: Upper GI endoscopy Indications: Dyspepsia Providers: Corey Bueno MD Referring MD: Drea AMBROSE DO Requesting Provider: Medicines: Monitored Anesthesia Care Complications: No immediate complications. Procedure: Pre-Anesthesia Assessment: - Prior to the procedure, a History and Physical was performed, and patient medications and allergies were reviewed. The patient is competent. The risks and benefits of the procedure and the sedation options and risks were discussed with the patient. All questions were answered and informed consent was obtained. Patient identification and proposed procedure were verified by the physician, the nurse and the anesthesiologist in the procedure room. Mental Status Examination: alert and oriented. Airway Examination: normal oropharyngeal airway and neck mobility. Respiratory Examination: clear to auscultation. CV Examination: normal. Prophylactic Antibiotics: The patient does not require prophylactic antibiotics. Prior Anticoagulants: The patient has taken no previous anticoagulant or antiplatelet agents. ASA Grade Assessment: II - A patient with mild systemic disease. After reviewing the risks and benefits, the patient was deemed in satisfactory condition to undergo the procedure. The anesthesia plan was to use monitored anesthesia care (MAC). Immediately prior to administration of medications, the patient was re-assessed for adequacy to receive sedatives. The heart rate, respiratory rate, oxygen saturations, blood pressure, adequacy of pulmonary ventilation, and response to care were monitored throughout the procedure. The physical status of the patient was re-assessed after the procedure. The Endoscope was introduced through the mouth, and advanced to the second part of duodenum. The upper GI endoscopy was accomplished without difficulty. The patient tolerated the procedure well. Findings: LA Grade A (one or more mucosal breaks less than 5 mm, not extending between tops of 2 mucosal folds) esophagitis with no bleeding was found in the distal esophagus. Biopsies were taken with a cold forceps for histology. Verification of patient identification for the specimen was done by the physician and nurse using the patient's name, date and medical record number. Estimated blood loss was minimal. Scattered mild inflammation characterized by erythema and granularity was found in the gastric antrum. Biopsies were taken with a cold forceps for Helicobacter pylori testing. Multiple sessile fundic gland polyps with no stigmata of recent bleeding were found in the gastric antrum. Biopsies were taken with a cold forceps for histology. The duodenal bulb and second portion of the duodenum were normal. Impression: - LA Grade A reflux esophagitis. Biopsied. - Gastritis. Biopsied. - Multiple fundic gland polyps. Biopsied. - Normal duodenal bulb and second portion of the duodenum. Recommendation: - Patient has a contact number available for emergencies. The signs and symptoms of potential delayed complications were discussed with the patient. Return to normal activities tomorrow. Written discharge instructions were provided to the patient. - High fiber diet. - Continue present medications. - Follow an antireflux regimen. - Await pathology results. - Telephone GI clinic for pathology results in 2 weeks. - Return to primary care physician. - Return to GI clinic if persistent symptoms or new symptoms. Procedure Code(s): --- Professional --- 60634, Esophagogastroduodenoscopy, flexible, transoral; with biopsy, single or multiple Diagnosis Code(s): --- Professional --- K21.0, Gastro-esophageal reflux disease with esophagitis K29.70, Gastritis, unspecified, without bleeding K31.7, Polyp of stomach and duodenum R10.13, Epigastric pain CPT copyright 2019 [employer]. All rights reserved. The codes documented in this report are preliminary and upon sales technician review may be revised to meet current compliance requirements. Corey Bueno MD Corey Bueno MD 01/09/2021 2:53:36 PM Electronically signed by Corey Bueno MD Number of Addenda: 0 Note Initiated On: 01/09/2021 2:20 PM Estimated Blood Loss: Estimated blood loss was minimal.
--- NOTE | 2021-01-09 14:58 | ROOR ---
Patient Name: Nela Arreola Procedure Date: 01/09/2021 2:21 PM Date of : 1955 Age: 65 Room: [facility] Gender: Female Note Status: Finalized Procedure: Colonoscopy Indications: Screening for colorectal malignant neoplasm Providers: Corey Bueno MD Referring MD: Drea AMBROSE DO Requesting Provider: Medicines: Monitored Anesthesia Care Complications: No immediate complications. Procedure: Pre-Anesthesia Assessment: - Prior to the procedure, a History and Physical was performed, and patient medications and allergies were reviewed. The patient is competent. The risks and benefits of the procedure and the sedation options and risks were discussed with the patient. All questions were answered and informed consent was obtained. Patient identification and proposed procedure were verified by the physician, the nurse and the anesthesiologist in the procedure room. Mental Status Examination: alert and oriented. Airway Examination: normal oropharyngeal airway and neck mobility. Respiratory Examination: clear to auscultation. CV Examination: normal. Prophylactic Antibiotics: The patient does not require prophylactic antibiotics. Prior Anticoagulants: The patient has taken Xarelto (rivaroxaban), last dose was 2 days prior to procedure. ASA Grade Assessment: II - A patient with mild systemic disease. After reviewing the risks and benefits, the patient was deemed in satisfactory condition to undergo the procedure. The anesthesia plan was to use monitored anesthesia care (MAC). Immediately prior to administration of medications, the patient was re-assessed for adequacy to receive sedatives. The heart rate, respiratory rate, oxygen saturations, blood pressure, adequacy of pulmonary ventilation, and response to care were monitored throughout the procedure. The physical status of the patient was re-assessed after the procedure. The Colonoscope was introduced through the anus and advanced to the terminal ileum, with identification of the appendiceal orifice and IC valve. The colonoscopy was performed without difficulty. The patient tolerated the procedure well. The quality of the bowel preparation was good. The terminal ileum, ileocecal valve, appendiceal orifice, and rectum were photographed. Scope insertion time was 2 minutes. Scope withdrawal time was 9 minutes. The total duration of the procedure was 12 minutes. Findings: The perianal and digital rectal examinations were normal. A 6 mm polyp was found in the cecum. The polyp was sessile. The polyp was removed with a cold snare. Resection and retrieval were complete. Verification of patient identification for the specimen was done by the physician and nurse using the patient's name, date and medical record number. Estimated blood loss was minimal. Non-bleeding external and internal hemorrhoids were found during retroflexion. The hemorrhoids were small. Impression: - One 6 mm polyp in the cecum, removed with a cold snare. Resected and retrieved. - Non-bleeding external and internal hemorrhoids. Recommendation: - Patient has a contact number available for emergencies. The signs and symptoms of potential delayed complications were discussed with the patient. Return to normal activities tomorrow. Written discharge instructions were provided to the patient. - High fiber diet. - Resume Xarelto (rivaroxaban) at prior dose today. Refer to primary physician for further adjustment of therapy. - Continue present medications. - Await pathology results. - Repeat colonoscopy in 5 years for surveillance based on pathology results. - Telephone GI clinic for pathology results in 2 weeks. - Return to primary care physician. Procedure Code(s): --- Professional --- 34183, Colonoscopy, flexible; with removal of tumor(s), polyp(s), or other lesion(s) by snare technique Diagnosis Code(s): --- Professional --- Z12.11, Encounter for screening for malignant neoplasm of colon K63.5, Polyp of colon K64.8, Other hemorrhoids CPT copyright 2019 [employer]. All rights reserved. The codes documented in this report are preliminary and upon finish remover review may be revised to meet current compliance requirements. Corey Bueno MD Corey Bueno MD 01/09/2021 2:58:47 PM Electronically signed by Corey Bueno MD Number of Addenda: 0 Note Initiated On: 01/09/2021 2:21 PM Estimated Blood Loss: Estimated blood loss was minimal.
[2021-01-09 15:20] VITALS: BP 147/70
== END 2021-01-09 15:38 | disposition home or self-care (01) ==
LOC: M OPP 12:43
PROVIDERS: ATTEND Internal Medicine Gastroenterology
DX: Z12.11 Encounter for screening for malignant neoplasm of colon (principal); K63.5 Polyp of colon; K64.8 Other hemorrhoids; K21.00 Gastro-esophageal reflux disease with esophagitis, without bleeding; K29.70 Gastritis, unspecified, without bleeding; K31.7 Polyp of stomach and duodenum; R10.13 Epigastric pain; Z79.899 Other long term (current) drug therapy; Z88.2 Allergy status to sulfonamides; Z87.891 Personal history of nicotine dependence
CPT/HCPCS: 43239; 45385; 88305; 88312; J3010

== ENCOUNTER → 2021-04-10 | Outpatient (CLI) | payer SELFPAY ==
[~2021-04-10] MED LIST changes: -MAGN400T3 PO; +MAGN400T33 PO
== END ==
LOC: M LABSMTC 11:34
PROVIDERS: ATTEND Pediatrics
DX: Z11.52 Encounter for screening for COVID-19 (principal)

== ENCOUNTER → 2021-08-08 | Outpatient (CLI) | payer MEDICARE, OTHER ==
[~2021-08-08] MED LIST changes: -D31000TA2 PO; +VITA100093 PO
[2021-08-08 10:30] LABS: BASO % 0.6 % (0.0-1.0); EOS # 0.1 10^3/uL (0.0-0.5); EOS % 1.1 % (0.0-3.0); HEMATOCRIT 41.7 % (36.0-47.0); HEMOGLOBIN 14.1 g/dl (12.0-15.5); LYMPH # 1.9 10^3/uL (1.5-5.0); LYMPH % 40.4 % (24.0-44.0); MEAN CORPUSCULAR HEMOGLOBIN 31.3 pg (27.0-33.0); MEAN CORPUSCULAR HGB CONC 33.8 g/dl (32.0-36.5); MEAN CORPUSCULAR VOLUME 92.7 fl (80.0-96.0); MONO # 0.5 10^3/uL (0.0-0.8); MONO % 10.7 % (2.0-8.0); NEUTROPHILS # 2.2 10^3/uL (1.5-8.5); PLATELET COUNT, AUTOMATED 262 10^3/uL (150-450); WHITE BLOOD COUNT 4.8 10^3/uL (4.0-10.0)
[2021-08-08 10:59] LABS: ALBUMIN 3.9 GM/DL (3.2-5.2); ALT/SGPT 31 U/L (12-78); BILIRUBIN,TOTAL 0.6 MG/DL (0.2-1.0); BLOOD UREA NITROGEN 19 MG/DL (7-18); CALCIUM LEVEL 9.3 MG/DL (8.8-10.2); CARBON DIOXIDE LEVEL 28 MEQ/L (21-32); CHLORIDE LEVEL 108 MEQ/L (98-107); CHOLESTEROL LEVEL 278 MG/DL (<200); CHOLESTEROL RISK RATIO 2.598 (<5); CREATININE FOR GFR 0.58 MG/DL (0.55-1.30); FREE T4 0.91 NG/DL (0.76-1.46); GLOMERULAR FILTRATION RATE > 60.0 (>45); GLUCOSE, FASTING 89 MG/DL (70-100); HDL CHOLESTEROL 107 MG/DL (>40); LDL CHOLESTEROL 164 MG/DL (<100); NON-HDL-C 171 MG/DL; POTASSIUM SERUM 4.2 MEQ/L (3.5-5.1); SODIUM LEVEL 143 MEQ/L (136-145); TOTAL PROTEIN 6.7 GM/DL (6.4-8.2); TRIGLYCERIDES LEVEL 33 MG/DL (<150)
== END ==
LOC: M WUC 08:01
PROVIDERS: ATTEND Nurse Practitioner Adult Health
DX: I48.0 Paroxysmal atrial fibrillation (principal); I10 Essential (primary) hypertension

== ENCOUNTER → 2021-08-08 | Outpatient (CLI) | payer MEDICARE, OTHER ==
[2021-08-08 10:58] LABS: CHOLESTEROL RISK RATIO 2.559 (<5)
== END ==
LOC: M WUC 08:03
PROVIDERS: ATTEND Internal Medicine Cardiovascular Disease
DX: E78.00 Pure hypercholesterolemia, unspecified (principal)

== ENCOUNTER → 2022-02-03 | Outpatient (CLI) | payer MEDICARE, OTHER ==
[2022-02-03 12:18] LABS: BASO % 0.5 % (0.0-1.0); EOS # 0.1 10^3/uL (0.0-0.5); EOS % 0.9 % (0.0-3.0); HEMATOCRIT 44.7 % (36.0-47.0); HEMOGLOBIN 14.9 g/dl (12.0-15.5); LYMPH # 1.6 10^3/uL (1.5-5.0); LYMPH % 27.6 % (24.0-44.0); MEAN CORPUSCULAR HEMOGLOBIN 30.8 pg (27.0-33.0); MEAN CORPUSCULAR HGB CONC 33.3 g/dl (32.0-36.5); MEAN CORPUSCULAR VOLUME 92.5 fl (80.0-96.0); MONO # 0.5 10^3/uL (0.0-0.8); MONO % 9.3 % (2.0-8.0); NEUTROPHILS # 3.6 10^3/uL (1.5-8.5); NEUTROPHILS % 61.5 % (36.0-66.0); PLATELET COUNT, AUTOMATED 262 10^3/uL (150-450); RED BLOOD COUNT 4.83 10^6/uL (4.00-5.40); WHITE BLOOD COUNT 5.8 10^3/uL (4.0-10.0)
[2022-02-03 12:34] LABS: HEMOGLOBIN A1c 5.3 %
[2022-02-03 12:43] LABS: ERYTHROCYTE SEDIMENTATION RATE 7 mm/hr (0-30)
[2022-02-03 12:52] LABS: ALBUMIN 3.8 GM/DL (3.2-5.2); ALT/SGPT 34 U/L (12-78); BILIRUBIN,TOTAL 0.6 MG/DL (0.2-1.0); BLOOD UREA NITROGEN 19 MG/DL (7-18); CALCIUM LEVEL 9.2 MG/DL (8.8-10.2); CARBON DIOXIDE LEVEL 29 MEQ/L (21-32); CHLORIDE LEVEL 105 MEQ/L (98-107); CHOLESTEROL LEVEL 288 MG/DL (<200); CHOLESTEROL RISK RATIO 2.322 (<5); CREATININE FOR GFR 0.64 MG/DL (0.55-1.30); FERRITIN 258 NG/ML (8-252); FREE T4 0.92 NG/DL (0.76-1.46); GLOMERULAR FILTRATION RATE > 60.0 (>45); GLUCOSE, FASTING 88 MG/DL (70-100); HDL CHOLESTEROL 124 MG/DL (>40); IRON (FE) 127 UG/DL (50-170); LDL CHOLESTEROL 153 MG/DL (<100); NON-HDL-C 164 MG/DL; PERCENT SATURATION 40.7 % (13.2-45.0); SODIUM LEVEL 137 MEQ/L (136-145); TOTAL IRON BINDING CAPACITY 312 UG/DL (250-450); TOTAL PROTEIN 7.2 GM/DL (6.4-8.2); TRIGLYCERIDES LEVEL 57 MG/DL (<150)
[2022-02-05 13:10] LABS: TOTAL 25(OH) VITAMIN D 49.8 NG/ML (30.0-100.0)
[2022-02-05 13:11] LABS: VITAMIN B12 LEVEL 887 PG/ML
[2022-02-05 13:17] LABS: FOLATE > 24.0 NG/ML
== END ==
LOC: M LAB 10:59
PROVIDERS: ATTEND Internal Medicine
DX: I10 Essential (primary) hypertension (principal)

== ENCOUNTER → 2022-03-05 | Outpatient (CLI) | payer MEDICARE, OTHER | LOC: M LAB 09:31 | DX: R53.83 Other fatigue (principal) ==

== ENCOUNTER → 2022-03-25 | Outpatient (CLI) | payer MEDICARE, OTHER ==
[2022-03-25 12:21] LABS: C REACTIVE PROTEIN QUANTITATIV < 0.40 MG/DL (<1.0)
[2022-03-25 12:22] LABS: RHEUMATOID FACTOR QUANT 3.6 IU/ML (<14)
== END ==
LOC: M LAB 11:11
PROVIDERS: ATTEND Family Medicine
DX: R10.9 Unspecified abdominal pain (principal); K58.0 Irritable bowel syndrome with diarrhea; M54.6 Pain in thoracic spine; M85.80 Other specified disorders of bone density and structure, unspecified site

== ENCOUNTER → 2022-12-04 | Outpatient (CLI) | payer MEDICARE, OTHER ==
[~2022-12-04] MED LIST changes: +DICY-61 PO; -DICY10CA13 PO
[2022-12-04 17:43] LABS: FERRITIN 232.8 NG/ML (7.3-270.7)
[2022-12-06 15:06] LABS: APOLIPOPROTEIN B/A-1 RATIO 0.5 ratio (0.0-0.6); LIPOPROTEIN (a) 13.1 nmol/L (<75.0)
== END ==
LOC: M WUC 09:17
PROVIDERS: ATTEND Family Medicine
DX: M54.6 Pain in thoracic spine (principal); E55.9 Vitamin D deficiency, unspecified

== ENCOUNTER → 2023-02-20 | Outpatient (REF) | payer MEDICARE, OTHER ==
[2023-02-21 11:13] LABS: IgG P18 AB Absent (.); IgG P23 AB Absent (.); IgG P28 AB Absent (.); IgG P30 AB Absent (.); IgG P39 AB Absent (.); IgG P41 AB Absent (.); IgG P45 AB Absent (.); IgG P66 AB Absent (.); IgG P93 AB Absent (.); IgM P23 AB Present (.); IgM P39 AB Absent (.); IgM P41 AB Present (.); LYME IgG WB INTERPRETATION Negative (.); LYME IgM WB INTERPRETATION Positive (.)
== END ==
LOC: M LABWUC 12:23
PROVIDERS: ATTEND Family Medicine
DX: L03.011 Cellulitis of right finger (principal)

== ENCOUNTER → 2023-03-27 | Outpatient (CLI) | payer MEDICARE, OTHER ==
[2023-03-27 16:56] LABS: BASO % 0.2 % (0.0-1.0); EOS % 0.3 % (0.0-3.0); HEMATOCRIT 45.6 % (36.0-47.0); HEMOGLOBIN 15.6 g/dl (12.0-15.5); LYMPH # 1.4 10^3/uL (1.5-5.0); LYMPH % 14.9 % (24.0-44.0); MEAN CORPUSCULAR HEMOGLOBIN 31.6 pg (27.0-33.0); MEAN CORPUSCULAR HGB CONC 34.2 g/dl (32.0-36.5); MEAN CORPUSCULAR VOLUME 92.5 fl (80.0-96.0); MONO # 0.8 10^3/uL (0.0-0.8); MONO % 8.9 % (2.0-8.0); NEUTROPHILS # 7.1 10^3/uL (1.5-8.5); NEUTROPHILS % 75.5 % (36.0-66.0); PLATELET COUNT, AUTOMATED 295 10^3/uL (150-450); RED BLOOD COUNT 4.93 10^6/uL (4.00-5.40); WHITE BLOOD COUNT 9.3 10^3/uL (4.0-10.0)
[2023-03-27 17:19] LABS: LIPASE 92 U/L (12-53)
[2023-03-27 17:20] LABS: AMYLASE 105 U/L (30-118); TOTAL IRON BINDING CAPACITY 265 UG/DL (250-425)
[2023-03-27 17:21] LABS: ALBUMIN 4.3 G/DL (3.2-5.2); ALKALINE PHOSPHATASE 101 U/L (46-116); ALT/SGPT 31 U/L (7.0-40); AST/SGOT 32 U/L (<34); BILIRUBIN,TOTAL 0.7 MG/DL (0.3-1.2); BLOOD UREA NITROGEN 18 MG/DL (9-23); CARBON DIOXIDE LEVEL 28 MMOL/L (20-31); CHLORIDE LEVEL 104 MMOL/L (98-107); CREATININE FOR GFR 0.61 MG/DL (0.55-1.30); FERRITIN 296.9 NG/ML (7.3-270.7); GLOMERULAR FILTRATION RATE > 60.0 (>45); GLUCOSE, FASTING 94 MG/DL (74-106); IRON (FE) 85 UG/DL (50-170); PERCENT SATURATION 32.1 % (13.2-45.0); POTASSIUM SERUM 3.9 MMOL/L (3.5-5.1); SODIUM LEVEL 138 MMOL/L (136-145); TOTAL PROTEIN 6.8 G/DL (5.7-8.2)
[2023-03-27 17:22] LABS: VITAMIN B12 LEVEL 1025 PG/ML (211-911)
== END ==
LOC: M WUC 12:28
PROVIDERS: ATTEND Family Medicine
DX: R10.13 Epigastric pain (principal); D50.9 Iron deficiency anemia, unspecified

== ENCOUNTER → 2023-04-05 | Outpatient (CLI) | payer MEDICARE, OTHER ==
[~2023-04-05] MED LIST changes: +GASTROGRAFIN SOLUTION 30ML ONE; +ISOVUE-370 76% 100ML VIAL ONE
== END ==
LOC: M PLAIMG 08:06
PROVIDERS: ATTEND Family Medicine
DX: N83.9 Noninflammatory disorder of ovary, fallopian tube and broad ligament, unspecified (principal); R10.13 Epigastric pain
CPT/HCPCS: 74177; Q9963; Q9967

== ENCOUNTER → 2023-04-17 | Outpatient (CLI) | payer MEDICARE, OTHER ==
[~2023-04-17] MED LIST changes: -GASTROGRAFIN SOLUTION 30ML ONE; -ISOVUE-370 76% 100ML VIAL ONE
== END ==
LOC: M RAD 09:25
PROVIDERS: ATTEND Family Medicine
DX: N83.291 Other ovarian cyst, right side (principal)

== ENCOUNTER → 2023-07-02 | Outpatient (CLI) | payer MEDICARE, OTHER | LOC: M WUC 10:25 | PROVIDERS: ATTEND Family Medicine | DX: Z01.82 Encounter for allergy testing (principal); R10.84 Generalized abdominal pain; J30.9 Allergic rhinitis, unspecified ==

== ENCOUNTER → 2023-09-16 | Outpatient (CLI) | payer MEDICARE, OTHER ==
[~2023-09-16] MED LIST changes: -MAGN120C2 PO; +MAGNESIUM GLYC120 MG PO; +VITA250T27 PO; -VITA250T4 PO
[2023-09-16 13:01] LABS: BASO % 0.4 % (0.0-1.0); EOS % 0.1 % (0.0-3.0); HEMATOCRIT 42.1 % (36.0-47.0); HEMOGLOBIN 14.8 g/dl (12.0-15.5); LYMPH # 1.4 10^3/uL (1.5-5.0); LYMPH % 20.4 % (24.0-44.0); MEAN CORPUSCULAR HEMOGLOBIN 32.5 pg (27.0-33.0); MEAN CORPUSCULAR HGB CONC 35.2 g/dl (32.0-36.5); MEAN CORPUSCULAR VOLUME 92.5 fl (80.0-96.0); MONO # 0.7 10^3/uL (0.0-0.8); MONO % 9.5 % (2.0-8.0); NEUTROPHILS # 4.8 10^3/uL (1.5-8.5); NEUTROPHILS % 69.2 % (36.0-66.0); PLATELET COUNT, AUTOMATED 258 10^3/uL (150-450); RED BLOOD COUNT 4.55 10^6/uL (4.00-5.40); WHITE BLOOD COUNT 6.9 10^3/uL (4.0-10.0)
[2023-09-16 13:08] LABS: ERYTHROCYTE SEDIMENTATION RATE 4 mm/hr (0-30)
[2023-09-16 13:35] LABS: LIPASE 58 U/L (12-53)
[2023-09-16 13:36] LABS: AMYLASE 88 U/L (30-118); C REACTIVE PROTEIN QUANTITATIV < 0.40 MG/DL (<1.0)
[2023-09-16 13:37] LABS: ALBUMIN 3.9 G/DL (3.2-5.2); ALKALINE PHOSPHATASE 100 U/L (46-116); ALT/SGPT 20 U/L (7.0-40); AST/SGOT 18 U/L (<34); BILIRUBIN,TOTAL 0.8 MG/DL (0.3-1.2); BLOOD UREA NITROGEN 18 MG/DL (9-23); CALCIUM LEVEL 9.2 MG/DL (8.3-10.6); CARBON DIOXIDE LEVEL 30 MMOL/L (20-31); CHLORIDE LEVEL 104 MMOL/L (98-107); GLOMERULAR FILTRATION RATE > 60.0 (>45); GLUCOSE, FASTING 92 MG/DL (74-106); POTASSIUM SERUM 4.3 MMOL/L (3.5-5.1); SODIUM LEVEL 138 MMOL/L (136-145); TOTAL PROTEIN 6.4 G/DL (5.7-8.2)
== END ==
LOC: M LAB 12:08
PROVIDERS: ATTEND Family Medicine
DX: R10.13 Epigastric pain (principal)

== ENCOUNTER → 2023-09-19 | Outpatient (CLI) | payer MEDICARE, OTHER | LOC: M RAD 06:42 | PROVIDERS: ATTEND Family Medicine | DX: R10.13 Epigastric pain (principal); R10.11 Right upper quadrant pain | CPT/HCPCS: 78227; A9537 ==

== ENCOUNTER 2023-09-22 10:12 | Emergency (ER) | payer MEDICARE, OTHER ==
[~2023-09-22] VITALS: Ht 160 cm; Wt 53.1 kg
[2023-09-22 11:32] LABS: BASO % 0.6 % (0.0-1.0); EOS % 0.4 % (0.0-3.0); HEMATOCRIT 46.6 % (36.0-47.0); LYMPH # 1.3 10^3/uL (1.5-5.0); LYMPH % 24.3 % (24.0-44.0); MEAN CORPUSCULAR HGB CONC 34.3 g/dl (32.0-36.5); MEAN CORPUSCULAR VOLUME 93.2 fl (80.0-96.0); MONO # 0.5 10^3/uL (0.0-0.8); MONO % 10.1 % (2.0-8.0); NEUTROPHILS # 3.4 10^3/uL (1.5-8.5); NEUTROPHILS % 64.4 % (36.0-66.0); PLATELET COUNT, AUTOMATED 265 10^3/uL (150-450); WHITE BLOOD COUNT 5.2 10^3/uL (4.0-10.0)
[2023-09-22 12:02] LABS: ALBUMIN 4.5 G/DL (3.2-5.2); BILIRUBIN,DIRECT 0.2 MG/DL (<0.4); BILIRUBIN,TOTAL 1.3 MG/DL (0.3-1.2); TOTAL PROTEIN 6.9 G/DL (5.7-8.2)
[2023-09-22] MEDS: PANTOPRAZOLE 40MG VIAL IV ONE (12:30)
[2023-09-22] MEDS: MAALOX 30 ML SUSP *UDC PO ONE (12:30)
[2023-09-22] MEDS: NS 500 ML IV ONE (12:31)
[2023-09-22 14:08] VITALS: BP 148/78; TEMP 97.6; O2SAT 95
== END 2023-09-22 15:02 | disposition home or self-care (01) ==
LOC: M ED 10:12
DX: K29.50 Unspecified chronic gastritis without bleeding (principal); Z88.2 Allergy status to sulfonamides; Z79.899 Other long term (current) drug therapy
CPT/HCPCS: 74176; 80047; 80076; 81001; 83690; 85025; 96361; 96374; 99284; C9113

== ENCOUNTER → 2023-10-24 | Outpatient (CLI) | payer MEDICARE, OTHER | LOC: M WUC 11:58 | PROVIDERS: ATTEND Family Medicine | DX: K58.1 Irritable bowel syndrome with constipation (principal); W01.10XA Fall on same level from slipping, tripping and stumbling with subsequent striking against unspecified object, initial encounter; M19.011 Primary osteoarthritis, right shoulder; Z91.81 History of falling ==

== ENCOUNTER → 2024-03-18 | Outpatient (CLI) | payer MEDICARE, OTHER ==
[2024-03-18 11:56] LABS: BASO % 0.7 % (0.0-1.0); EOS % 0.5 % (0.0-3.0); HEMATOCRIT 42.4 % (36.0-47.0); HEMOGLOBIN 14.7 g/dl (12.0-15.5); LYMPH # 1.4 10^3/uL (1.5-5.0); LYMPH % 33.1 % (24.0-44.0); MEAN CORPUSCULAR HEMOGLOBIN 32.5 pg (27.0-33.0); MEAN CORPUSCULAR HGB CONC 34.7 g/dl (32.0-36.5); MEAN CORPUSCULAR VOLUME 93.6 fl (80.0-96.0); MONO # 0.4 10^3/uL (0.0-0.8); MONO % 9.7 % (2.0-8.0); NEUTROPHILS # 2.4 10^3/uL (1.5-8.5); NEUTROPHILS % 55.8 % (36.0-66.0); PLATELET COUNT, AUTOMATED 268 10^3/uL (150-450); RED BLOOD COUNT 4.53 10^6/uL (4.00-5.40); WHITE BLOOD COUNT 4.3 10^3/uL (4.0-10.0)
[2024-03-18 12:27] LABS: ALBUMIN 3.9 G/DL (3.2-5.2); ALKALINE PHOSPHATASE 88 U/L (35-104); ALT/SGPT 36 U/L (7.0-40); AST/SGOT 30 U/L (<34); BLOOD UREA NITROGEN 14 MG/DL (9-23); CALCIUM LEVEL 9.8 MG/DL (8.3-10.6); CARBON DIOXIDE LEVEL 30 MMOL/L (20-31); CHLORIDE LEVEL 104 MMOL/L (98-107); CHOLESTEROL LEVEL 300 MG/DL (<200); CHOLESTEROL RISK RATIO 2.86 (<5); CREATININE FOR GFR 0.63 MG/DL (0.55-1.30); GLOMERULAR FILTRATION RATE > 60.0 (>45); GLUCOSE, FASTING 91 MG/DL (74-106); HDL CHOLESTEROL 104.7 MG/DL (>40); LDL CHOLESTEROL 189.1 MG/DL (<100); NON-HDL-C 195.3 MG/DL; POTASSIUM SERUM 4.6 MMOL/L (3.5-5.1); SODIUM LEVEL 138 MMOL/L (136-145); TOTAL PROTEIN 6.7 G/DL (5.7-8.2); TRIGLYCERIDES LEVEL 31 MG/DL (<150)
[2024-03-18 12:28] LABS: FREE T4 1.19 NG/DL (0.89-1.76)
== END ==
LOC: M WUC 09:22
PROVIDERS: ATTEND Family Medicine
DX: E78.00 Pure hypercholesterolemia, unspecified (principal)

== ENCOUNTER → 2025-03-12 | Outpatient (CLI) | payer MEDICARE, OTHER ==
[~2025-03-12] MED LIST changes: -EQL50TAB2 PO; +VITA1TAB82 PO
[2025-03-12 13:22] LABS: FREE T4 1.85 NG/DL (0.89-1.76)
[2025-03-12 13:23] LABS: ALT/SGPT 30 U/L (7.0-40); AST/SGOT 31 U/L (<34); BASO # 0.0 10^3/uL (0.0-0.2); BASO % 0.5 % (0.0-1.0); CALCIUM LEVEL 9.1 MG/DL (8.3-10.6); CARBON DIOXIDE LEVEL 29 MMOL/L (20-31); CHLORIDE LEVEL 105 MMOL/L (98-107); CHOLESTEROL LEVEL 220 MG/DL (<200); CHOLESTEROL RISK RATIO 2.13 (<5); CREATININE FOR GFR 0.49 MG/DL (0.55-1.30); EOS # 0.1 10^3/uL (0.0-0.5); EOS % 1.8 % (0.0-3.0); GLOMERULAR FILTRATION RATE > 90.0 (>39); LDL CHOLESTEROL 109.9 MG/DL (<100); LYMPH # 2.4 10^3/uL (1.5-5.0); LYMPH % 42.5 % (24.0-44.0); MONO # 0.7 10^3/uL (0.0-0.8); MONO % 12.5 % (2.0-8.0); NEUTROPHILS # 2.4 10^3/uL (1.5-8.5); NEUTROPHILS % 42.5 % (36.0-66.0); NON-HDL-C 117.1 MG/DL; PLATELET COUNT, AUTOMATED 299 10^3/uL (150-450); POTASSIUM SERUM 4.3 MMOL/L (3.5-5.1); SODIUM LEVEL 144 MMOL/L (136-145); TRIGLYCERIDES LEVEL 36 MG/DL (<150)
== END ==
LOC: M WUC 08:48
PROVIDERS: ATTEND Physician Assistant
DX: E78.00 Pure hypercholesterolemia, unspecified (principal); K58.1 Irritable bowel syndrome with constipation; I10 Essential (primary) hypertension

== ENCOUNTER → 2025-03-26 | Outpatient (CLI) | payer MEDICARE, OTHER ==
[2025-03-26 15:39] LABS: FREE T4 1.78 NG/DL (0.89-1.76)
[2025-03-26 15:40] LABS: THYROGLOBULIN ANTIBODY 16.0 U/ML (<60.0)
[2025-03-26 15:48] LABS: THYROID PEROXIDASE ANTIBODY > 1300.0 U/ML (<60.0)
== END ==
LOC: M WUC 11:56
PROVIDERS: ATTEND Family Medicine
DX: R94.6 Abnormal results of thyroid function studies (principal)